=== PATIENT | female | born 1955 | race Caucasian/White ===

== ENCOUNTER 2022-03-20 15:21 | Inpatient (IN) ==
--- NOTE | 2022-03-20 15:48 | Emergency Department Note ---
Impression & Plan Hyponatremia, Acute UTI, H/O: CVA (cerebrovascular accident), Elevated troponin, Weakness ED Provider Note Provider: Villa Amaya MD DATE OF SERVICE: 03/20/2022 CHIEF COMPLAINT: Abnormal lab, chest pain yesterday, weakness, COVID HISTORY OF PRESENT ILLNESS: Patient is a 66-year-old female history of diabetes, atrial fibrillation on Eliquis, prior CVA with resultant right-sided hemiplegia presented today reporting she has had COVID for just over 10 days. From records it appears she did receive pack Slo-Bid. Is on Eliquis. States has been increasingly weak without appetite. Denies significant shortness of breath. Denies significant nausea or diarrhea. Denies abdominal pain. Reports yesterday for about an hour in the afternoon had a pressure across her chest like an elephant. Lasted maybe an hour. Evidently seen by medical staff there and had blood work this morning that was concerning for an elevated troponin and sent here for further care. Patient denies any pain overnight or today. Patient again endorses significant weakness. EMS reports the facility noted her to have some decreased blood pressure as well today. No falls reported. Patient denies change in her weakness on the right side that is stable from old stroke. Denies Toradol as prior heart attack. Primary care has been located at [facility]. Papers patient work also has diagnosis of peripheral autonomic dysfunction from prior stroke. REVIEW OF SYSTEMS: A total of 10 review of systems was obtained and negative except as stated above in the HPI. PAST MEDICAL HISTORY: As noted above MEDICATIONS: Reviewed medication list from the facility SOCIAL HISTORY: Now resides at nursing facility after her large stroke PHYSICAL EXAM: GENERAL: alert and oriented in no acute distress on stretcher Head: normocephalic and atraumatic EYES: No injection, discharge or icterus. NECK: Trachea midline. ENT: Mucous membranes pink and moist. LUNGS: Airway patent. No retractions. Breath sounds clear with good air entry bilaterally. HEART: Regular rate and rhythm. No chest wall tenderness ABDOMEN: Soft and non-tender, without guarding or rebound. SKIN: Acyanotic, warm, dry, without rashes EXTREMITIES: Without swelling, tenderness or deformity NEUROLOGICAL: Right-sided hemiplegia. Movement of the left foot and arm noted. No significant aphasia or dysarthria. Patient at times takes an extra moment or 2 to formulate words. She states this is her baseline. EK bpm sinus rhythm first-degree AV block. No PVC. No acute ST segment elevation with some baseline artifact. CONTINUOUS CARDIAC MONITORING: was ordered and showed a heart rate of 80s-90s bpm in sinus rhythm first-degree AV block Patient's laboratory studies and imaging reviewed. Differential includes Infection, dehydration, metabolic abnormality, hypo/hyperglycemia, electrolyte disturbance, anemia, hypoxia, cardiac sources, intracerebral event, toxicologic, neurologic, as well as other pathologies. IMPRESSION/MEDICAL DECISION MAKING: Report of chest pressure yesterday with elevated troponin on blood work earlier today. EKG without STEMI now not having active chest pain. He is COVID-positiv e. Anticoagulation Eliquis lowers my suspicion for PE/VTE. Denies significant chest or abdominal pain right now. No trauma reported. Reports stable unfortunately large neurological deficits from prior stroke. To me she denies significant cardiac history beyond A. fib. Blood pressure in the 90s to 100s fluctuating some. Better here with slight leukocytosis 11.6. Hemoglobin of 14.8 is normal. Troponin is elevated at 55. Negative COVID today but again recently positive. Blood pressure has been at times in the high 90s. Given a small fluid bolus. Unclear due to lack of other significant blood work if troponin elevation is chronic or not. No chest pain today but yesterday. Significantly weak. Discussed with her further monitoring here at the hospital. Hyponatremia of 128 is also noted today. No significant renal dysfunction. Urinalysis concerning for infection as well and given a dose of ceftriaxone. Blood cultures and urine cultures have been sent. Not clear that this is sepsis. Discussed with her given her elevated troponin with hyponatremia and evidence of UTI further care here at the hospital and hospitalist was contacted. DIAGNOSIS: Hyponatremia, elevated troponin, weakness, acute UTI DISPOSITION: Hospitalist will evaluate Patient was agreeable with this plan. Past Med/Surg History Social History Smoking Status: Never smoker Feels Safe at Home: Yes Allergies Allergies Allergy/AdvReac Type Severity Reaction Status Date / Time adhesive tape Allergy Unknown Unknown Verified 03/20/22 18:15 aspirin Allergy Unknown Unknown Verified 03/20/22 18:15 atorvastatin Allergy Unknown Unknown Verified 03/20/22 18:15 citalopram [From Celexa] Allergy Unknown Unknown Verified 03/20/22 18:15 Iodinated Contrast Media Allergy Unknown Unknown Verified 03/20/22 18:15 iodine Allergy Unknown Unknown Verified 03/20/22 18:15 latex Allergy Unknown Unknown Verified 03/20/22 18:15 sertraline [From Zoloft] Allergy Unknown Unknown Verified 03/20/22 18:15 Sulfa (Sulfonamide Allergy Unknown Unknown Verified 03/20/22 18:15 Antibiotics) ekg leads Allergy Unknown Unknown Uncoded 03/20/22 18:15 Home Meds Home Medications Medication Instructions Recorded Confirmed acetaminophen 325 mg tablet 650 mg PO Q6 PRN Pain 03/20/22 03/20/22 acetaminophen 325 mg tablet 650 mg PO Q6 PRN temp>101 03/20/22 03/20/22 apixaban 5 mg tablet (Eliquis) 5 mg PO BID 03/20/22 03/20/22 ascorbic acid (vitamin C) 500 mg 500 mg PO DAILY 03/20/22 03/20/22 tablet (Vitamin C) cholecalciferol (vitamin D3) 125 125 mcg PO DAILY 03/20/22 03/20/22 mcg (5,000 unit) tablet (Vitamin D3) cholecalciferol (vitamin D3) 25 25 mcg PO . DAILY (ON HOLD) 03/20/22 03/20/22 mcg (1,000 unit) tablet diltiazem HCl 180 mg 180 mg PO DAILY 03/20/22 03/20/22 capsule,extended release 24 hr duloxetine 60 mg capsule,delayed 60 mg PO DAILY 03/20/22 03/20/22 release furosemide 40 mg tablet 40 mg PO DAILY 03/20/22 03/20/22 gabapentin 100 mg capsule 200 mg PO DAILY 03/20/22 03/20/22 insulin glargine 100 unit/mL (3 40 unit subcut HS 03/20/22 03/20/22 mL) subcutaneous pen (Lantus Solostar U-100 Insulin) lisinopril 10 mg tablet 10 mg PO DAILY 03/20/22 03/20/22 metoprolol tartrate 25 mg tablet 25 mg PO . BID (ON HOLD) 03/20/22 03/20/22 polyethylene glycol 3350 17 17 g PO DAILY 03/20/22 03/20/22 gram/dose oral powder (Miralax) pravastatin 40 mg tablet 40 mg PO DAILY 03/20/22 03/20/22 sitagliptin phosphate 100 mg 100 mg PO DAILY 03/20/22 03/20/22 tablet (Januvia) sotalol 80 mg tablet 80 mg PO . BID( ON HOLD ) 03/20/22 03/20/22 trazodone 150 mg tablet 75 mg PO HS 03/20/22 03/20/22 zinc acetate 50 mg (zinc) capsule 50 mg PO DAILY 03/20/22 03/20/22 Results & Data (ED) Vital Signs Vital Signs - 24 hr 03/20/22 15:25 03/20/22 15:56 03/20/22 15:56 Temperature 37.0 C Temperature Source Oral Pulse Rate 90 Pulse Rate [Apical] 88 Pulse Rate from SpO2 Sensor Pulse Rhythm Regular Pulse Strength Normal Respiratory Rate 22 16 Respiratory Effort / Characteristics Non-Labored Respiratory Depth Normal Respiratory Pattern Regular Blood Pressure 110/77 Blood Pressure [Left Arm] 95/72 L Blood Pressure Mean 88 Blood Pressure Mean [Left Arm] 79 Blood Pressure Position Lying Pulse Oximetry 94 93 Oxygen Delivery Method Room Air Room Air Sepsis Recent Fever Within 48 Hours No Sepsis New/Unexplained Change in Mental Status N/A Sepsis Action Taken by Nursing No Action Required 03/20/22 15:56 03/20/22 17:02 03/20/22 15:31 Temperature Temperature Source Pulse Rate 87 82 Pulse Rate [Apical] 85 Pulse Rate from SpO2 Sensor 82 Pulse Rhythm Pulse Strength Respiratory Rate 16 18 19 Respiratory Effort / Characteristics Respiratory Depth Respiratory Pattern Blood Pressure Blood Pressure [Left Arm] 100/75 Blood Pressure Mean Blood Pressure Mean [Left Arm] 83 Blood Pressure Position Pulse Oximetry 94 91 94 Oxygen Delivery Method Sepsis Recent Fever Within 48 Hours Sepsis New/Unexplained Change in Mental Status Sepsis Action Taken by Nursing 03/20/22 15:36 03/20/22 15:36 03/20/22 15:40 Temperature Temperature Source Pulse Rate 84 90 Pulse Rate [Apical] Pulse Rate from SpO2 Sensor 87 88 Pulse Rhythm Pulse Strength Respiratory Rate 21 24 Respiratory Effort / Characteristics Respiratory Depth Respiratory Pattern Blood Pressure 94/68 L Blood Pressure [Left Arm] Blood Pressure Mean 76 Blood Pressure Mean [Left Arm] Blood Pressure Position Pulse Oximetry 94 94 Oxygen Delivery Method Sepsis Recent Fever Within 48 Hours Sepsis New/Unexplained Change in Mental Status Sepsis Action Taken by Nursing 03/20/22 15:40 03/20/22 15:45 03/20/22 15:45 Temperature Temperature Source Pulse Rate 88 Pulse Rate [Apical] Pulse Rate from SpO2 Sensor 88 Pulse Rhythm Pulse Strength Respiratory Rate 19 Respiratory Effort / Characteristics Respiratory Depth Respiratory Pattern Blood Pressure 89/62 L 107/68 Blood Pressure [Left Arm] Blood Pressure Mean 71 81 Blood Pressure Mean [Left Arm] Blood Pressure Position Pulse Oximetry 92 Oxygen Delivery Method Sepsis Recent Fever Within 48 Hours Sepsis New/Unexplained Change in Mental Status Sepsis Action Taken by Nursing 03/20/22 15:56 03/20/22 15:56 03/20/22 16:00 Temperature Temperature Source Pulse Rate 86 Pulse Rate [Apical] Pulse Rate from SpO2 Sensor 87 Pulse Rhythm Pulse Strength Respiratory Rate 21 Respiratory Effort / Characteristics Respiratory Depth Respiratory Pattern Blood Pressure 95/72 L 86/68 L Blood Pressure [Left Arm] Blood Pressure Mean 79 74 Blood Pressure Mean [Left Arm] Blood Pressure Position Pulse Oximetry 93 Oxygen Delivery Method Sepsis Recent Fever Within 48 Hours Sepsis New/Unexplained Change in Mental Status Sepsis Action Taken by Nursing 03/20/22 16:00 03/20/22 16:30 03/20/22 16:30 Temperature Temperature Source Pulse Rate 94 H 86 Pulse Rate [Apical] Pulse Rate from SpO2 Sensor 95 H 87 Pulse Rhythm Pulse Strength Respiratory Rate 15 25 H Respiratory Effort / Characteristics Respiratory Depth Respiratory Pattern Blood Pressure 109/70 Blood Pressure [Left Arm] Blood Pressure Mean 83 Blood Pressure Mean [Left Arm] Blood Pressure Position Pulse Oximetry 94 94 Oxygen Delivery Method Sepsis Recent Fever Within 48 Hours Sepsis New/Unexplained Change in Mental Status Sepsis Action Taken by Nursing 03/20/22 17:00 03/20/22 17:30 03/20/22 17:30 Temperature Temperature Source Pulse Rate 87 79 Pulse Rate [Apical] Pulse Rate from SpO2 Sensor 79 Pulse Rhythm Pulse Strength Respiratory Rate 18 17 Respiratory Effort / Characteristics Respiratory Depth Respiratory Pattern Blood Pressure 91/58 L Blood Pressure [Left Arm] Blood Pressure Mean 69 Blood Pressure Mean [Left Arm] Blood Pressure Position Pulse Oximetry 92 Oxygen Delivery Method Sepsis Recent Fever Within 48 Hours Sepsis New/Unexplained Change in Mental Status Sepsis Action Taken by Nursing Laboratory Data Result diagrams: 03/20/22 15:41 03/20/22 15:41 Lab Results 03/20/22 03/20/22 03/20/22 Range/Units 15:41 15:41 15:41 WBC 11.67 H (4.8-10.8) K/ul RBC 5.38 H (3.93-5.22) M/uL Hgb 14.8 (12.0-16.0) g/dl Hct 43.1 (34.1-44.9) % MCV 80.1 (80.0-100.0) fL MCH 27.5 (25.0-34.0) pg MCHC 34.3 (32.0-36.0) g/dL RDW Std Deviation 42.2 (36.4-46.3) fL RDW Coeff of Nelson 14.6 H (11.5-14.5) % Plt Count 411 H (130-400) K/uL MPV 10.7 (9.4-12.3) fL Immature Gran % (Auto) 0.6 % Neut % (Auto) 69.4 % Lymph % (Auto) 18.1 % [place] % (Auto) 10.9 % Eos % (Auto) 0.7 % Baso % (Auto) 0.3 % Neut # (Auto) 8.11 H (1.4-6.5) K/uL Lymph # (Auto) 2.11 (1.2-3.4) K/uL [place] # (Auto) 1.27 H (0.24-0.82) K/uL Eos # (Auto) 0.08 (0-0.50) K/uL Baso # (Auto) 0.03 (0-0.2) K/uL Immature Gran # (Auto) 0.07 H (0.00-0.02) K/uL PT 13.1 H (9.0-12.0) Seconds INR 1.2 H (0.9-1.1) APTT 33.7 H (21.0-31.0) Seconds PTT Ratio 1.2 Sodium 128 L (136-145) mmol/L Potassium 4.3 (3.5-5.1) mmol/L Chloride 93 L (98-107) mmol/L Carbon Dioxide 26 (21-32) mmol/L Anion Gap 9 (3-11) BUN 21 (6-23) mg/dl Creatinine 0.57 L (0.6-1.2) mg/dl Est Cr Clr Drug Dosing 96.4 ml/min Est GFR ( Amer) 110.4 ml/min Est GFR (Non-Af Amer) 95.3 ml/min BUN/Creatinine Ratio 36.8 H (10-20) Glucose 152 H (70-99(Fasting)) mg/dl Lactate (0.4-2.0) mmol/L Calcium 8.8 (8.5-10.1) mg/dl Total Bilirubin 0.9 (0.2-1.0) mg/dl AST 14 (13-39) U/L ALT 8 (7-52) U/L Alkaline Phosphatase 85 (34-104) U/L Troponin I High Sens 55.1 H* (0-14) pg/ml Total Protein 7.1 (6.0-8.3) gm/dl Albumin 3.1 L (3.4-5.0) gm/dl Globulin 4.0 (2.5-4.0) gm/dl Albumin/Globulin Ratio 0.8 L (0.9-2) Lipase 19 (11-82) U/L Procalcitonin (0-0.5) ng/ml Urine Color Urine Appearance (Clear) Urine pH (4.5-7.5) Ur Specific [place] (1.000-1.030) Urine Protein (Negative) Urine Glucose (UA) (Negative) Urine Ketones (Negative) Urine Blood (Negative) Urine Nitrite (Negative) Urine Bilirubin (Negative) Urine Urobilinogen (Negative) Ur Leukocyte Esterase (Negative) Urine WBC (Auto) (0-5) /hpf Urine RBC (Auto) (0-4) /hpf U Hyaline Cast (Auto) (0-5) /lpf U Epithel Cells (Auto) (0-5) /lpf Urine Bacteria (Auto) (Negative) Triple Phos Crystals (None Prsent) Urine Yeast 03/20/22 03/20/22 03/20/22 Range/Units 15:41 16:37 16:54 WBC (4.8-10.8) K/ul RBC (3.93-5.22) M/uL Hgb (12.0-16.0) g/dl Hct (34.1-44.9) % MCV (80.0-100.0) fL MCH (25.0-34.0) pg MCHC (32.0-36.0) g/dL RDW Std Deviation (36.4-46.3) fL RDW Coeff of Nelson (11.5-14.5) % Plt Count (130-400) K/uL MPV (9.4-12.3) fL Immature Gran % (Auto) % Neut % (Auto) % Lymph % (Auto) % [place] % (Auto) % Eos % (Auto) % Baso % (Auto) % Neut # (Auto) (1.4-6.5) K/uL Lymph # (Auto) (1.2-3.4) K/uL [place] # (Auto) (0.24-0.82) K/uL Eos # (Auto) (0-0.50) K/uL Baso # (Auto) (0-0.2) K/uL Immature Gran # (Auto) (0.00-0.02) K/uL PT (9.0-12.0) Seconds INR (0.9-1.1) APTT (21.0-31.0) Seconds PTT Ratio Sodium (136-145) mmol/L Potassium (3.5-5.1) mmol/L Chloride (98-107) mmol/L Carbon Dioxide (21-32) mmol/L Anion Gap (3-11) BUN (6-23) mg/dl Creatinine (0.6-1.2) mg/dl Est Cr Clr Drug Dosing ml/min Est GFR ( Amer) ml/min Est GFR (Non-Af Amer) ml/min BUN/Creatinine Ratio (10-20) Glucose (70-99(Fasting)) mg/dl Lactate 1.6 (0.4-2.0) mmol/L Calcium (8.5-10.1) mg/dl Total Bilirubin (0.2-1.0) mg/dl AST (13-39) U/L ALT (7-52) U/L Alkaline Phosphatase (34-104) U/L Troponin I High Sens (0-14) pg/ml Total Protein (6.0-8.3) gm/dl Albumin (3.4-5.0) gm/dl Globulin (2.5-4.0) gm/dl Albumin/Globulin Ratio (0.9-2) Lipase (11-82) U/L Procalcitonin 0.11 (0-0.5) ng/ml Urine Color [place] Urine Appearance Turbid A (Clear) Urine pH 8.0 H (4.5-7.5) Ur Specific [place] 1.017 (1.000-1.030) Urine Protein 3+ H (Negative) Urine Glucose (UA) Negative (Negative) Urine Ketones Negative (Negative) Urine Blood 3+ H (Negative) Urine Nitrite Negative (Negative) Urine Bilirubin Negative (Negative) Urine Urobilinogen Negative (Negative) Ur Leukocyte Esterase 3+ H (Negative) Urine WBC (Auto) >30 H (0-5) /hpf Urine RBC (Auto) 10-30 H (0-4) /hpf U Hyaline Cast (Auto) 0 (0-5) /lpf U Epithel Cells (Auto) >30 H (0-5) /lpf Urine Bacteria (Auto) 4+ H (Negative) Triple Phos Crystals Present A (None Prsent) Urine Yeast Not Reportable Administered Medications Apixaban (Apixaban 5 Mg Tablet) 5 mg PO BID [facility] Stop: 04/19/22 20:59 Last Admin: 03/20/22 21:26 Dose: 5 mg Documented By: JANNET Sodium Chloride (Nss 1000ml) 1,000 mls @ 80 mls/hr IV .[id number] [facility] Stop: 03/21/22 06:44 Last Admin: 03/20/22 19:45 Dose: 80 mls/hr Documented By: JANNET Insulin Glargine (Lantus Per Unit Charge) 30 units SQ [facility] Stop: 04/19/22 20:59 Last Admin: 03/20/22 21:27 Dose: 30 units Documented By: JANNET Co-signed By: RAJI Pravastatin Sodium (Pravastatin Sod 40 Mg Tab) 40 mg PO DAILY@1700 [facility] Stop: 04/19/22 18:09 Last Admin: 03/20/22 19:45 Dose: 40 mg Documented By: JANNET Trazodone HCl (Trazodone Hcl 50 Mg Tab) 75 mg PO HS [facility] Stop: 04/19/22 20:59 Last Admin: 03/20/22 21:26 Dose: 75 mg Documented By: JANNET Discontinued Medications Aspirin (Aspirin 81 Mg Ectab) 81 mg PO NOW STA Stop: 03/20/22 18:12 Last Admin: 03/20/22 19:42 Dose: Not Given Documented By: JANNET Sodium Chloride (Nss) 500 mls @ 999 mls/hr IV .Q31M ONE Stop: 03/20/22 17:05 Last Infusion: 03/20/22 18:21 Dose: 0 mls/hr Documented By: Admin: 03/20/22 17:02 Dose: 999 mls/hr Documented By: GALEN Ceftriaxone Sodium (Rocephin) 2,000 mg in 70 mls @ 140 mls/hr IV NOW STA Stop: 03/20/22 18:02 Last Infusion: 03/20/22 18:20 Dose: 0 mls/hr Documented By: Admin: 03/20/22 17:40 Dose: 140 mls/hr Documented By: GALEN Imaging Data Radiologist's Impression: Chest X-Ray 03/20/22 15:41 XR chest 1V portable HISTORY: Atypical Chest pain, nonspecific COMPARISON: None. FINDINGS: The lungs are clear. Cardiac silhouette is normal in size. No pleural effusions. No pneumothorax. Degenerative changes noted within the shoulders. IMPRESSION: No acute process. ACT 112: Negative or not required by law. Electronically signed by: Carlos Benoit M.D. 03/20/2022 4:15 PM Discharge Plan Visit Data Chief Complaint: Cardiac Assessment ED Provider: Villa Amaya Discharge Problem: Hyponatremia, Acute UTI, H/O: CVA (cerebrovascular accident), Elevated troponin, Weakness Patient Disposition: Being Evaluated by Hospitalist Discharge Instructions Interventions: ED Discharge Assessment Last Done: 03/20/22 20:05
[2022-03-20 15:59] LABS: Basophils # (auto) 0.03 K/uL (0-0.2); Basophils % (auto) 0.3 %; Eosinophils # (auto) 0.08 K/uL (0-0.50); Eosinophils % (auto) 0.7 %; Hematocrit (blood only) 43.1 % (34.1-44.9); Hemoglobin 14.8 g/dl (12.0-16.0); Immature Granulocytes # (auto) 0.07 K/uL (0.00-0.02); Immature Granulocytes % (auto) 0.6 %; Lymphocytes # (auto) 2.11 K/uL (1.2-3.4); Lymphocytes % (auto) 18.1 %; Mean Corpuscular Hemoglobin 27.5 pg (25.0-34.0); Mean Corpuscular Hgb Conc 34.3 g/dL (32.0-36.0); Mean Corpuscular Volume 80.1 fL (80.0-100.0); Mean Platelet Volume 10.7 fL (9.4-12.3); Monocytes # (auto) 1.27 K/uL (0.24-0.82); Monocytes % (auto) 10.9 %; Neutrophils # (auto) 8.11 K/uL (1.4-6.5); Neutrophils % (auto) 69.4 %; Platelet Count 411 K/uL (130-400); RDW Coefficient of Variation 14.6 % (11.5-14.5); RDW Standard Deviation 42.2 fL (36.4-46.3); Red Blood Count 5.38 M/uL (3.93-5.22); White Blood Count 11.67 K/ul (4.8-10.8)
[2022-03-20 16:11] LABS: INR 1.2 (0.9-1.1); Partial Thromboplastin Ratio 1.2; Partial Thromboplastin Time 33.7 Seconds (21.0-31.0); Prothrombin Time 13.1 Seconds (9.0-12.0)
--- NOTE | 2022-03-20 16:16 | XRay Report ---
XR chest 1V portable HISTORY: Atypical Chest pain, nonspecific COMPARISON: None. FINDINGS: The lungs are clear. Cardiac silhouette is normal in size. No pleural effusions. No pneumot horax. Degenerative changes noted within the shoulders. IMPRESSION: No acute process. ACT 112: Negative or not required by law. Electronically signed by: Carlos Benoit M.D. 03/20/2022 4:15 PM
[2022-03-20 16:35] LABS: Albumin Globulin Ratio 0.8 (0.9-2); Albumin Level 3.1 gm/dl (3.4-5.0); BUN Creatinine Ratio 36.8 (10-20); Bilirubin,Total 0.9 mg/dl (0.2-1.0); Calcium 8.8 mg/dl (8.5-10.1); Creatinine Clr Calc Pharmacy 96.4 ml/min; Est GFR (African American) 110.4 ml/min; Est GFR (Non-African American) 95.3 ml/min; Potassium 4.3 mmol/L (3.5-5.1); Total Protein 7.1 gm/dl (6.0-8.3); Troponin I High Sensitivity 55.1 pg/ml (0-14)
[2022-03-20] MEDS ORDERED: SODIUM CHLORIDE 0.9% 500 ML IV ONE (16:35)
[2022-03-20 17:27] LABS: Appearance Urine Turbid (Clear); Bacteria Urine Automated 4+ (Negative); Bilirubin Urine Negative (Negative); Blood Urine 3+ (Negative); Color Urine Orange; Epithelial Cell Urine Auto >30 /lpf (0-5); Glucose Urine UA Negative (Negative); Ketones Urine Negative (Negative); Leukocyte Esterase Urine 3+ (Negative); Nitrite Urine Negative (Negative); Specific Gravity Urine 1.017 (1.000-1.030); Urobilinogen Urine Negative (Negative); WBC Urine Automated >30 /hpf (0-5)
[2022-03-20 17:30] LABS: Protein Urine 3+ (Negative)
[2022-03-20] MEDS ORDERED: NITROGLYCERIN SL 0.4 MG/TAB TAB SL PRN (17:33)
[2022-03-20] MEDS ORDERED: cefTRIAXone SODIUM 2,000 MG/70 ML BAG IV STA (17:33)
[2022-03-20] MEDS ORDERED: POLYETHYLENE (MIRALAX) 17 GM PACK PO PRN (17:33)
[2022-03-20 17:43] LABS: Cast Urine Automated 0 /lpf (0-5)
[2022-03-20 17:44] LABS: Triple Phosphate Crystal Urine Present (None Prsent)
[2022-03-20] MEDS ORDERED: bisacodyL 5 MG TABEC PO PRN (18:04)
[2022-03-20] MEDS ORDERED: ASPIRIN 81 MG ECTAB PO STA (18:11)
[2022-03-20] MEDS ORDERED: DEXTROSE 50% 50 ML SYRINGE IV PRN (18:12)
[2022-03-20] MEDS ORDERED: CARBOHYDRATES FOR HYPOGLYCEMIA PO PRN (18:12)
[2022-03-20] MEDS ORDERED: PHARMACY GLYCEMIC MGMT CONSULT PRN (18:12)
[2022-03-20] MEDS ORDERED: GLUCOSE 40% GEL 15 GM TUBE PO PRN (18:12)
[2022-03-20] MEDS ORDERED: GLUCAGON FOR INJ 1 MG VIAL SQ PRN (18:12)
[2022-03-20] MEDS ORDERED: GLUCOSE 10 TAB/TUBE PO PRN (18:12)
[2022-03-20] MEDS ORDERED: SODIUM CHLORIDE 0.9% 500 ML IV SCH (18:15)
[2022-03-20] MEDS ORDERED: SODIUM CHLORIDE 0.9% 1000ML 1,000 ML IV SCH (18:15)
--- NOTE | 2022-03-20 18:18 | History & Physical Report ---
Date of Service March 20, 2022 Assessment & Plan (1) Acute UTI: Plan: - presenting with malaise, fatigue, decreased appetite - UA positive for infection - in the setting of chronic indwelling lovelace catheter and presenting symptoms with positive UA will treat for UTI - exhange lovelace - urine culture, blood cultures drawn - continue ceftriaxone - IVF for soft BP - will monitor for response (2) Elevated troponin: Plan: - patient had reports of chest pain 1 day [employer] - denies chest pain since isolated episode - given extensive CV disease and multiple CVA in the past will rule out ACS - initial trop 56-->55 - ECG without ischemic changes - will trend troponin overnight and repeat ECG - given no active chest pain and minimally elevated troponin with initial downtrend, no ECG changes will hold off consulting Cardiology for now - would likely benefit from Cardiology outpatient follow up - telemetry monitoring for now - given aspirin 81mg - continue Eliquis and statin (3) Hyponatremia: Plan: - likely in the setting of decreased po intake - given NS in ED - BP stable, respiratory status stable - will give 1L NS at 80cc/hr overnight - repeat BMP on morning labs (4) Paroxysmal atrial fibrillation: Plan: - in NSR on admission ECG - rate controlled on ?diltiazem, sotalol, metoprolol? on med list from [place] - will continue diltiazem for now as sotalol and metoprolol on hold at [place] - monitor on telemetry - continue eliquis (5) DM2 (diabetes mellitus, type 2): Plan: - no hbA1c on record - ordered - on lantus 40units qhs at [place] - start on 30 units qhs for now given decreased PO intake - SSI for now - FSG AC+HS - diabetic diet (6) H/O: CVA (cerebrovascular accident): Plan: - right sided hemiplegia with very minimal functioning on right - appears to be at baseline - continue statin and Eliquis - given aspirin given report of chest pain in setting of CV disease (7) HTN (hypertension): Plan: - patient BP a little low on presentation possibly in the setting of hypovolemia from decrease po - IVF as above - holding BP meds for now - restart as tolerated (8) HLD (hyperlipidemia): Plan: - continue statin (9) Depression with anxiety: Plan: - continue home meds (10) Neurogenic bladder: Plan: - change lovelace on admission - continue for now - abx as above Plan DVT ppx: Eliquis Code Status: Full Code Dispo: telemetry Chris Montgomery MD Hospital Medicine History of Present Illness Chief Complaint: weakness, hyponatremia Primary Care Provider: [facility] The patient is a 66 year old woman with pmh h/o CVA with right hemiplegia, DM2, HTN, MDD/anxiety, afib on eliquis, HLD, neurogenic bladder with chronic indwelling lovelace catheter presented from [facility] with report of chest pain 1 day prior to admission and generalized fatigue. Patient reports generalized weakness and malaise for the past 3 days mostly but has not felt well since COVID19 diagnosis several weeks ago. She denies any chest pain at this time. Reported pressure like chest pain for about 1 hour the day prior to admission but has resolved and not recurred since then. Denied shortness of breath, n/v/d, abdominal pain, LOC, change in cough, fever or chills. Reports right sided weakness is unchanged from baseline. She reports a decreased appetite for the past 3 days as well. Feels like she has had a UTI but "no one did anything about it." She denies any other complaints. In the ED, vitals were significant for BP 90-100s/70s, HR 80s, afebrile, SpO2 91-94% on RA. Labs were significant for WBC 11.7, PLT 411, Na 128, trop 56-->55, UA with >30 WBC, 3+ LE, bacteria. CXR was unremarkable, ECG without ischemic changes, NSR. She was given IVF with NS and ceftriaxone and admitted to medicine. Allergies Allergy/AdvReac Type Severity Reaction Status Date / Time adhesive tape Allergy Unknown Unknown Verified 03/20/22 18:15 aspirin Allergy Unknown Unknown Verified 03/20/22 18:15 atorvastatin Allergy Unknown Unknown Verified 03/20/22 18:15 citalopram [From Celexa] Allergy Unknown Unknown Verified 03/20/22 18:15 Iodinated Contrast Media Allergy Unknown Unknown Verified 03/20/22 18:15 iodine Allergy Unknown Unknown Verified 03/20/22 18:15 latex Allergy Unknown Unknown Verified 03/20/22 18:15 sertraline [From Zoloft] Allergy Unknown Unknown Verified 03/20/22 18:15 Sulfa (Sulfonamide Allergy Unknown Unknown Verified 03/20/22 18:15 Antibiotics) ekg leads Allergy Unknown Unknown Uncoded 03/20/22 18:15 Home Medications Medication Instructions Recorded Confirmed Type acetaminophen 325 mg tablet 650 mg PO Q6 PRN Pain 03/20/22 03/20/22 History acetaminophen 325 mg tablet 650 mg PO Q6 PRN temp>101 03/20/22 03/20/22 History apixaban 5 mg tablet (Eliquis) 5 mg PO BID 03/20/22 03/20/22 History ascorbic acid (vitamin C) 500 mg 500 mg PO DAILY 03/20/22 03/20/22 History tablet (Vitamin C) cholecalciferol (vitamin D3) 125 125 mcg PO DAILY 03/20/22 03/20/22 History mcg (5,000 unit) tablet (Vitamin D3) cholecalciferol (vitamin D3) 25 25 mcg PO .ON HOLD 03/20/22 03/20/22 History mcg (1,000 unit) tablet diltiazem HCl 180 mg 180 mg PO DAILY 03/20/22 03/20/22 History capsule,extended release 24 hr duloxetine 60 mg capsule,delayed 60 mg PO DAILY 03/20/22 03/20/22 History release furosemide 40 mg tablet 40 mg PO DAILY 03/20/22 03/20/22 History gabapentin 100 mg capsule 200 mg PO DAILY 03/20/22 03/20/22 History insulin glargine 100 unit/mL (3 40 unit subcut HS 03/20/22 03/20/22 History mL) subcutaneous pen (Lantus Solostar U-100 Insulin) lisinopril 10 mg tablet 10 mg PO DAILY 03/20/22 03/20/22 History metoprolol tartrate 25 mg tablet 25 mg PO BID 03/20/22 03/20/22 History polyethylene glycol 3350 17 17 g PO DAILY 03/20/22 03/20/22 History gram/dose oral powder (Miralax) pravastatin 40 mg tablet 40 mg PO DAILY 03/20/22 03/20/22 History sitagliptin phosphate 100 mg 100 mg PO DAILY 03/20/22 03/20/22 History tablet (Januvia) sotalol 80 mg tablet 80 mg PO BID 03/20/22 03/20/22 History trazodone 150 mg tablet 75 mg PO HS 03/20/22 03/20/22 History zinc acetate 50 mg (zinc) capsule 50 mg PO DAILY 03/20/22 03/20/22 History Past Med/Surg History Social History Smoking Status: Never smoker Feels Safe at Home: Yes Review of Systems Review of Systems: All systems reviewed & are unremarkable except as noted in Subjective Physical Exam Physical Exam: GENERAL: alert and oriented in no acute distress on stretcher Head: normocephalic and atraumatic EYES: No injection, discharge or icterus. NECK: Trachea midline. ENT: Mucous membranes pink and moist. LUNGS: Airway patent. No retractions. Breath sounds clear with good air entry bilaterally. HEART: Regular rate and rhythm. No chest wall tenderness ABDOMEN: Soft and mildly tender throughout, without guarding or rebound. SKIN: Acyanotic, warm, dry, without rashes EXTREMITIES: Without swelling, tenderness or deformity NEUROLOGICAL: Right-sided hemiplegia. Movement of the left foot and arm noted Arm>leg/foot on left. No significant aphasia or dysarthria. Patient at times takes an extra moment or 2 to formulate words. She states this is her baseline. has light squeez on right hand 1/5 Results & Data Results & Data ([facility]) Vital Signs (Past 12 Hours) Vital Signs Temp Pulse Pulse Resp BP BP Pulse Ox 03/20/22 17:02 85 18 100/75 91 03/20/22 15:56 87 16 94 03/20/22 15:56 88 16 95/72 L 93 03/20/22 15:56 03/20/22 15:25 37.0 C 90 22 110/77 94 O2 Del Method 03/20/22 17:02 03/20/22 15:56 03/20/22 15:56 03/20/22 15:56 Room Air 03/20/22 15:25 Room Air Diagnostic Findings Laboratory Results WBC 11.67 K/ul (4.8-10.8) H 03/20/22 15:41 RBC 5.38 M/uL (3.93-5.22) H 03/20/22 15:41 Hgb 14.8 g/dl (12.0-16.0) 03/20/22 15:41 Hct 43.1 % (34.1-44.9) 03/20/22 15:41 MCV 80.1 fL (80.0-100.0) 03/20/22 15:41 MCH 27.5 pg (25.0-34.0) 03/20/22 15:41 MCHC 34.3 g/dL (32.0-36.0) 03/20/22 15:41 RDW Std Deviation 42.2 fL (36.4-46.3) 03/20/22 15:41 RDW Coeff of [place] 14.6 % (11.5-14.5) H 03/20/22 15:41 Plt Count 411 K/uL (130-400) H 03/20/22 15:41 MPV 10.7 fL (9.4-12.3) 03/20/22 15:41 Immature Gran % (Auto) 0.6 % 03/20/22 15:41 Neut % (Auto) 69.4 % 03/20/22 15:41 Lymph % (Auto) 18.1 % 03/20/22 15:41 [place] % (Auto) 10.9 % 03/20/22 15:41 Eos % (Auto) 0.7 % 03/20/22 15:41 Baso % (Auto) 0.3 % 03/20/22 15:41 Neut # (Auto) 8.11 K/uL (1.4-6.5) H 03/20/22 15:41 Lymph # (Auto) 2.11 K/uL (1.2-3.4) 03/20/22 15:41 [place] # (Auto) 1.27 K/uL (0.24-0.82) H 03/20/22 15:41 Eos # (Auto) 0.08 K/uL (0-0.50) 03/20/22 15:41 Baso # (Auto) 0.03 K/uL (0-0.2) 03/20/22 15:41 Immature Gran # (Auto) 0.07 K/uL (0.00-0.02) H 03/20/22 15:41 PT 13.1 Seconds (9.0-12.0) H 03/20/22 15:41 INR 1.2 (0.9-1.1) H 03/20/22 15:41 APTT 33.7 Seconds (21.0-31.0) H 03/20/22 15:41 PTT Ratio 1.2 03/20/22 15:41 Sodium 128 mmol/L (136-145) L 03/20/22 15:41 Potassium 4.3 mmol/L (3.5-5.1) 03/20/22 15:41 Chloride 93 mmol/L (98-107) L 03/20/22 15:41 Carbon Dioxide 26 mmol/L (21-32) 03/20/22 15:41 Anion Gap 9 (3-11) 03/20/22 15:41 BUN 21 mg/dl (6-23) 03/20/22 15:41 Creatinine 0.57 mg/dl (0.6-1.2) L 03/20/22 15:41 Est Cr Clr Drug Dosing 96.4 ml/min 03/20/22 15:41 Est GFR ( Amer) 110.4 ml/min 03/20/22 15:41 Est GFR (Non-Af Amer) 95.3 ml/min 03/20/22 15:41 BUN/Creatinine Ratio 36.8 (10-20) H 03/20/22 15:41 Glucose 152 mg/dl (70-99(Fasting)) H 03/20/22 15:41 Calcium 8.8 mg/dl (8.5-10.1) 03/20/22 15:41 Total Bilirubin 0.9 mg/dl (0.2-1.0) 03/20/22 15:41 AST 14 U/L (13-39) 03/20/22 15:41 ALT 8 U/L (7-52) 03/20/22 15:41 Alkaline Phosphatase 85 U/L (34-104) 03/20/22 15:41 Troponin I High Sens 55.1 pg/ml (0-14) H* 03/20/22 15:41 Total Protein 7.1 gm/dl (6.0-8.3) 03/20/22 15:41 Albumin 3.1 gm/dl (3.4-5.0) L 03/20/22 15:41 Globulin 4.0 gm/dl (2.5-4.0) 03/20/22 15:41 Albumin/Globulin Ratio 0.8 (0.9-2) L 03/20/22 15:41 Lipase 19 U/L (11-82) 03/20/22 15:41 Procalcitonin 0.11 ng/ml (0-0.5) 03/20/22 15:41 Urine Color [place] 03/20/22 16:54 Urine Appearance Turbid (Clear) A 03/20/22 16:54 Urine pH 8.0 (4.5-7.5) H 03/20/22 16:54 Ur Specific [place] 1.017 (1.000-1.030) 03/20/22 16:54 Urine Protein 3+ (Negative) H 03/20/22 16:54 Urine Glucose (UA) Negative (Negative) 03/20/22 16:54 Urine Ketones Negative (Negative) 03/20/22 16:54 Urine Blood 3+ (Negative) H 03/20/22 16:54 Urine Nitrite Negative (Negative) 03/20/22 16:54 Urine Bilirubin Negative (Negative) 03/20/22 16:54 Urine Urobilinogen Negative (Negative) 03/20/22 16:54 Ur Leukocyte Esterase 3+ (Negative) H 03/20/22 16:54 Urine WBC (Auto) >30 /hpf (0-5) H 03/20/22 16:54 Urine RBC (Auto) 10-30 /hpf (0-4) H 03/20/22 16:54 U Hyaline Cast (Auto) 0 /lpf (0-5) 03/20/22 16:54 U Epithel Cells (Auto) >30 /lpf (0-5) H 03/20/22 16:54 Urine Bacteria (Auto) 4+ (Negative) H 03/20/22 16:54 Triple Phos Crystals Present (None Prsent) A 03/20/22 16:54 Urine Yeast Not Reportable 03/20/22 16:54 SARS-CoV-2, RNA, NAAT NEGATIVE (NEGATIVE) 03/20/22 Unknown Impressions Chest X-Ray 03/20/22 15:41 XR chest 1V portable HISTORY: Atypical Chest pain, nonspecific COMPARISON: None. FINDINGS: The lungs are clear. Cardiac silhouette is normal in size. No pleural effusions. No pneumothorax. Degenerative changes noted within the shoulders. IMPRESSION: No acute process. ACT 112: Negative or not required by law. Electronically signed by: Carlos Benoit M.D. 03/20/2022 4:15 PM Medications Administered Current Inpatient Medications Acetaminophen (Acetaminophen 325 Mg Tab) 650 mg PO Q4H PRN PRN Reason: Pain or Fever Stop: 04/19/22 17:32 Apixaban (Apixaban 5 Mg Tablet) 5 mg PO BID [facility] Stop: 04/19/22 20:59 Ascorbic Acid (Ascorbic Acid 500 Mg Tab) 500 mg PO QAM [facility] Stop: 04/20/22 08:59 Aspirin (Aspirin 81 Mg Ectab) 81 mg PO NOW STA Stop: 03/20/22 18:12 Bisacodyl (Bisacodyl 5 Mg Tabec) 5 mg PO BID PRN PRN Reason: Constipation Stop: 04/19/22 18:03 Cyanocobalamin (Cyanocobalamin (B-12) 500 Mcg Tablet) 500 mcg PO [facility] Stop: 04/20/22 08:59 Dextrose (Dextrose 50% 50 Ml Syringe) 25 - 50 ml IV UD PRN; Protocol PRN Reason: Hypoglycemia Protocol Stop: 04/19/22 18:11 Diltiazem HCl (Diltiazem Hcl 180 Mg Capcr) 180 mg PO [facility] Stop: 04/20/22 08:59 Duloxetine HCl (Duloxetine Hcl 60 Mg Cap) 60 mg PO [facility] Stop: 04/20/22 08:59 Gabapentin (Gabapentin 100 Mg Cap) 200 mg PO [facility] Stop: 04/20/22 08:59 Glucagon (Glucagon For Inj 1 Mg Vial) 1 mg SQ UD PRN; Protocol PRN Reason: Hypoglycemia Protocol Stop: 04/19/22 18:11 Glucose (Glucose 40% Gel 15 Gm Tube) 15 - 30 gm PO UD PRN; Protocol PRN Reason: Hypoglycemia Protocol Stop: 04/19/22 18:11 Glucose (Glucose 10 Tab/Tube) 4 - 8 tab PO UD PRN; Protocol PRN Reason: Hypoglycemia Treatment Stop: 04/19/22 18:11 Ceftriaxone Sodium 2,000 mg/ (Dextrose) 70 mls @ 100 mls/hr IV Q24H [facility]; Protocol Stop: 03/31/22 08:59 Sodium Chloride (Nss 1000ml) 1,000 mls @ 80 mls/hr IV .[id number] [facility] Stop: 03/21/22 06:44 Insulin Aspart (Insulin Aspart Per Unit) 0 units SC ACHS [facility] Stop: 04/19/22 20:59 Insulin Glargine (Lantus Per Unit Charge) 30 units SQ HS [facility] Stop: 04/19/22 20:59 Miscellaneous (Carbohydrates For Hypoglycemia ) 15 - 30 gm PO UD PRN PRN Reason: Hypoglycemia Protocol Stop: 04/19/22 18:11 Miscellaneous Information (Pharmacy Glycemic Mgmt Consult) 1 each N/A UD PRN PRN Reason: Consult Stop: 04/19/22 18:11 Nitroglycerin (Nitroglycerin Sl 0.4 Mg/Tab Tab) 0.4 mg SL UD PRN PRN Reason: Chest Pain Stop: 04/19/22 17:32 Polyethylene Glycol (Polyethylene (Miralax) 17 Gm Pack) 17 gm PO DAILY PRN PRN Reason: Constipation Stop: 04/19/22 17:32 Pravastatin Sodium (Pravastatin Sod 40 Mg Tab) 40 mg PO DAILY@1700 [facility] Stop: 04/19/22 18:09 Trazodone HCl (Trazodone Hcl 50 Mg Tab) 75 mg PO HS [facility] Stop: 04/19/22 20:59 Vitamin D (Cholecalciferol 1,000 Units 25 Mcg Tab) 1,000 units PO QAM [facility] Stop: 04/20/22 08:59 Code Status & VTE Plan Code Status Full code VTE Prophylaxis Plan VTE Prophylaxis will be ordered: No
[2022-03-20 19:08] LABS: Estimated Average Glucose 114 mg/dl; Hemoglobin A1C 5.6 % (4.5-5.6)
[2022-03-20 19:30] LABS: Chol HDL Ratio 3.6 (0-5)
[2022-03-20] MEDS: PRAVASTATIN SOD 40 MG TAB PO SCH (19:45)
[2022-03-20] MEDS ORDERED: LANTUS PER UNIT CHARGE SQ SCH (21:00)
[2022-03-20] MEDS: traZODone HCL 50 MG TAB PO SCH (21:26)
[2022-03-20] MEDS: APIXABAN 5 MG TABLET PO SCH (21:26)
[2022-03-20] MEDS: INSULIN ASPART PER UNIT SC SCH (22:55)
[2022-03-21] MEDS ORDERED: SODIUM CHLORIDE 0.9% 1000ML 1,000 ML IV SCH (08:15)
[2022-03-21 08:16] LABS: Basophils # (auto) 0.04 K/uL (0-0.2); Basophils % (auto) 0.4 %; Eosinophils # (auto) 0.08 K/uL (0-0.50); Eosinophils % (auto) 0.8 %; Hematocrit (blood only) 41.4 % (34.1-44.9); Hemoglobin 13.8 g/dl (12.0-16.0); Immature Granulocytes # (auto) 0.04 K/uL (0.00-0.02); Immature Granulocytes % (auto) 0.4 %; Mean Corpuscular Hemoglobin 26.8 pg (25.0-34.0); Mean Corpuscular Hgb Conc 33.3 g/dL (32.0-36.0); Mean Corpuscular Volume 80.5 fL (80.0-100.0); Mean Platelet Volume 10.9 fL (9.4-12.3); Monocytes # (auto) 1.12 K/uL (0.24-0.82); Monocytes % (auto) 10.7 %; Neutrophils # (auto) 7.23 K/uL (1.4-6.5); Neutrophils % (auto) 68.7 %; Platelet Count 360 K/uL (130-400); RDW Coefficient of Variation 14.5 % (11.5-14.5); RDW Standard Deviation 42.4 fL (36.4-46.3); Red Blood Count 5.14 M/uL (3.93-5.22); White Blood Count 10.51 K/ul (4.8-10.8)
[2022-03-21 08:26] LABS: INR 1.2 (0.9-1.1); Prothrombin Time 13.1 Seconds (9.0-12.0)
[2022-03-21 08:55] LABS: Albumin Globulin Ratio 0.8 (0.9-2); BUN Creatinine Ratio 37.8 (10-20); Bilirubin,Total 0.8 mg/dl (0.2-1.0); C Reactive Protein 5.22 mg/dl (0-0.5); Calcium 8.6 mg/dl (8.5-10.1); Creatinine Clr Calc Pharmacy 121.5 ml/min; Est GFR (African American) 119.3 ml/min; Globulin 3.7 gm/dl (2.5-4.0); Magnesium 1.7 mg/dl (1.7-2.4); Phosphorus 3.1 mg/dl (2.5-4.9); Potassium 3.8 mmol/L (3.5-5.1); Total Protein 6.7 gm/dl (6.0-8.3)
[2022-03-21] MEDS: INSULIN ASPART PER UNIT SC SCH ×4 (09:04→20:48)
[2022-03-21] MEDS: DULoxetine HCL 60 MG CAP PO SCH (09:06)
[2022-03-21] MEDS: APIXABAN 5 MG TABLET PO SCH ×2 (09:07→21:20)
[2022-03-21] MEDS: GABAPENTIN 100 MG CAP PO SCH (09:07)
[2022-03-21] MEDS: ASCORBIC ACID 500 MG TAB PO SCH (09:07)
[2022-03-21] MEDS: CYANOCOBALAMIN (B-12) 500 MCG TABLET PO SCH (09:07)
[2022-03-21] MEDS: dilTIAZem HCL 180 MG CAPCR PO SCH (09:08)
[2022-03-21] MEDS: cefTRIAXone SODIUM 2,000 MG in DEXTROSE 5% 50 ML IV SCH (09:14)
[2022-03-21] MEDS ORDERED: MICONAZOLE NITRATE POWDER 85 GM EXT PRN (10:17)
--- NOTE | 2022-03-21 12:04 | Hospitalist Progress Note ---
Date of Service March 21, 2022 Assessment & Plan (1) Acute UTI: Plan: - presenting with malaise, fatigue, decreased appetite - UA positive for infection - in the setting of chronic indwelling lovelace catheter and presenting symptoms with positive UA will treat for UTI - exhange lovelace - urine culture, blood cultures pending - continue ceftriaxone - IVF for soft BP - will monitor for response (2) Hyponatremia: Plan: - likely in the setting of decreased po intake - given NS in ED - BP stable, respiratory status stable - continue gentle IVF - monitor Na on BMP daily (3) Paroxysmal atrial fibrillation: Plan: - in NSR on admission ECG - rate controlled on ?diltiazem, sotalol, metoprolol? on med list from [place] - will continue diltiazem for now as sotalol and metoprolol on hold at [place] - monitor on telemetry - continue eliquis (4) Elevated troponin: Plan: - patient had reports of chest pain 1 day [facility] - denies chest pain since isolated episode - extensive CV disease and multiple CVA in the past - ECG without ischemic changes - trop continued down trend, no ECG changes - no chest pain - would likely benefit from Cardiology outpatient follow up - telemetry monitoring for now - given aspirin 81mg - continue Eliquis and statin (5) DM2 (diabetes mellitus, type 2): Plan: - A1c 5.6% 02/2022 - on lantus 40units qhs at [place] - start on 30 units qhs for now given decreased PO intake - SSI for now - FSG AC+HS - diabetic diet (6) H/O: CVA (cerebrovascular accident): Plan: - right sided hemiplegia with very minimal functioning on right - appears to be at baseline - continue statin and Eliquis (7) HTN (hypertension): Plan: - patient BP a little low on presentation possibly in the setting of hypovolemia from decrease po - IVF as above - home meds from [place] are lisinopril 10mg daily, diltiazem 180mg daily, [id number] BID, Lopressor 25mg BID - continue diltiazem for now, hold others - restart as tolerated (8) HLD (hyperlipidemia): Plan: - continue statin (9) Depression with anxiety: Plan: - continue home meds (10) Neurogenic bladder: Plan: - change lovelace on admission - continue for now - abx as above Plan DVT ppx: Eliquis Code Status: Full Code Dispo: telemetry Chris Montgomery MD [facility] Medicine Admission and Anticipated Discharge Date Admission Date: March 20, 2022 Subjective Patient with h/o CVA with right hemiplegia, DM2, HTN, MDD/anxiety, afib on eliquis, HLD, neurogenic bladder with chronic indwelling lovelace catheter presented from [facility] with report of chest pain 1 day prior to admission and generalized fatigue. Found to have UTI, lovelace exchanged, culture sent, ceftriaxone started, IVF. troponin trended down, ECG without ischemic changes, no more chest pain. Patient feels somewhat better today. Still feeling fatigued. Reports appetite is somewhat improved this morning. Denies chest pain, shortness of breath, n/v/d, abdominal pain. Review of Systems Review of Systems: All systems reviewed & are unremarkable except as noted in Subjective Physical Exam Physical Exam: GENERAL: alert and oriented in no acute distress on stretcher Head: normocephalic and atraumatic EYES: No injection, discharge or icterus. NECK: Trachea midline. ENT: Mucous membranes pink and moist. LUNGS: Airway patent. No retractions. Breath sounds clear with good air entry bilaterally. HEART: Regular rate and rhythm. No chest wall tenderness ABDOMEN: Soft and mildly tender throughout, without guarding or rebound. SKIN: Acyanotic, warm, dry, without rashes EXTREMITIES: Without swelling, tenderness or deformity NEUROLOGICAL: Right-sided hemiplegia. Movement of the left foot and arm noted Arm>leg/foot on left. No significant aphasia or dysarthria. Patient at times takes an extra moment or 2 to formulate words. She states this is her baseline. has light squeez on right hand 1/5 Results & Data Results & Data ([facility]) Vital Signs (Past 12 Hours) Vital Signs Temp Pulse Pulse Resp BP Pulse Ox O2 Del Method 03/21/22 11:49 37.0 C 103 H 16 92/63 L 94 Room Air 03/21/22 08:13 36.7 C 88 16 99/61 L 94 Room Air 03/21/22 05:11 36.5 C 92 H 14 104/68 92 Room Air 03/21/22 00:25 96 H Diagnostic Findings Laboratory Results WBC 10.51 K/ul (4.8-10.8) 03/21/22 07:25 RBC 5.14 M/uL (3.93-5.22) 03/21/22 07:25 Hgb 13.8 g/dl (12.0-16.0) 03/21/22 07:25 Hct 41.4 % (34.1-44.9) 03/21/22 07:25 MCV 80.5 fL (80.0-100.0) 03/21/22 07:25 MCH 26.8 pg (25.0-34.0) 03/21/22 07:25 MCHC 33.3 g/dL (32.0-36.0) 03/21/22 07:25 RDW Std Deviation 42.4 fL (36.4-46.3) 03/21/22 07:25 RDW Coeff of Nelson 14.5 % (11.5-14.5) 03/21/22 07:25 Plt Count 360 K/uL (130-400) 03/21/22 07:25 MPV 10.9 fL (9.4-12.3) 03/21/22 07:25 Immature Gran % (Auto) 0.4 % 03/21/22 07:25 Neut % (Auto) 68.7 % 03/21/22 07:25 Lymph % (Auto) 19.0 % 03/21/22 07:25 [place] % (Auto) 10.7 % 03/21/22 07:25 Eos % (Auto) 0.8 % 03/21/22 07:25 Baso % (Auto) 0.4 % 03/21/22 07:25 Neut # (Auto) 7.23 K/uL (1.4-6.5) H 03/21/22 07:25 Lymph # (Auto) 2.00 K/uL (1.2-3.4) 03/21/22 07:25 [place] # (Auto) 1.12 K/uL (0.24-0.82) H 03/21/22 07:25 Eos # (Auto) 0.08 K/uL (0-0.50) 03/21/22 07:25 Baso # (Auto) 0.04 K/uL (0-0.2) 03/21/22 07:25 Immature Gran # (Auto) 0.04 K/uL (0.00-0.02) H 03/21/22 07:25 PT 13.1 Seconds (9.0-12.0) H 03/21/22 07:25 INR 1.2 (0.9-1.1) H 03/21/22 07:25 APTT 33.7 Seconds (21.0-31.0) H 03/20/22 15:41 PTT Ratio 1.2 03/20/22 15:41 Sodium 128 mmol/L (136-145) L 03/21/22 07:25 Potassium 3.8 mmol/L (3.5-5.1) 03/21/22 07:25 Chloride 94 mmol/L (98-107) L 03/21/22 07:25 Carbon Dioxide 25 mmol/L (21-32) 03/21/22 07:25 Anion Gap 9 (3-11) 03/21/22 07:25 BUN 17 mg/dl (6-23) 03/21/22 07:25 Creatinine 0.45 mg/dl (0.6-1.2) L 03/21/22 07:25 Est Cr Clr Drug Dosing 121.5 ml/min 03/21/22 07:25 Est GFR ( Amer) 119.3 ml/min 03/21/22 07:25 Est GFR (Non-Af Amer) 103.0 ml/min 03/21/22 07:25 BUN/Creatinine Ratio 37.8 (10-20) H 03/21/22 07:25 Glucose 103 mg/dl (70-99(Fasting)) H 03/21/22 07:25 POC Glucose 145 mg/dl (70-99) H 03/21/22 11:39 Estimat Average Glucose 114 mg/dl 03/20/22 18:44 Hemoglobin A1c 5.6 % (4.5-5.6) 03/20/22 18:44 Lactate 1.6 mmol/L (0.4-2.0) 03/20/22 16:37 Calcium 8.6 mg/dl (8.5-10.1) 03/21/22 07:25 Phosphorus 3.1 mg/dl (2.5-4.9) 03/21/22 07:25 Magnesium 1.7 mg/dl (1.7-2.4) 03/21/22 07:25 Total Bilirubin 0.8 mg/dl (0.2-1.0) 03/21/22 07:25 AST 15 U/L (13-39) 03/21/22 07:25 ALT 7 U/L (7-52) 03/21/22 07:25 Alkaline Phosphatase 79 U/L (34-104) 03/21/22 07:25 Troponin I High Sens 38.4 pg/ml (0-14) H 03/21/22 00:51 C-Reactive Protein 5.22 mg/dl (0-0.5) H 03/21/22 07:25 Total Protein 6.7 gm/dl (6.0-8.3) 03/21/22 07:25 Albumin 3.0 gm/dl (3.4-5.0) L 03/21/22 07:25 Globulin 3.7 gm/dl (2.5-4.0) 03/21/22 07:25 Albumin/Globulin Ratio 0.8 (0.9-2) L 03/21/22 07:25 Triglycerides 91 mg/dl (0-150) 03/20/22 18:44 Cholesterol 97 mg/dl (0-200) 03/20/22 18:44 LDL Cholesterol, Calc 52 mg/dl 03/20/22 18:44 VLDL Cholesterol, Calc 18 mg/dl (0-30) 03/20/22 18:44 HDL Cholesterol 27 mg/dl 03/20/22 18:44 Cholesterol/HDL Ratio 3.6 (0-5) 03/20/22 18:44 Lipase 19 U/L (11-82) 03/20/22 15:41 Procalcitonin 0.11 ng/ml (0-0.5) 03/20/22 15:41 Urine Color Dolores 03/20/22 16:54 Urine Appearance Turbid (Clear) A 03/20/22 16:54 Urine pH 8.0 (4.5-7.5) H 03/20/22 16:54 Ur Specific Morrison 1.017 (1.000-1.030) 03/20/22 16:54 Urine Protein 3+ (Negative) H 03/20/22 16:54 Urine Glucose (UA) Negative (Negative) 03/20/22 16:54 Urine Ketones Negative (Negative) 03/20/22 16:54 Urine Blood 3+ (Negative) H 03/20/22 16:54 Urine Nitrite Negative (Negative) 03/20/22 16:54 Urine Bilirubin Negative (Negative) 03/20/22 16:54 Urine Urobilinogen Negative (Negative) 03/20/22 16:54 Ur Leukocyte Esterase 3+ (Negative) H 03/20/22 16:54 Urine WBC (Auto) >30 /hpf (0-5) H 03/20/22 16:54 Urine RBC (Auto) 10-30 /hpf (0-4) H 03/20/22 16:54 U Hyaline Cast (Auto) 0 /lpf (0-5) 03/20/22 16:54 U Epithel Cells (Auto) >30 /lpf (0-5) H 03/20/22 16:54 Urine Bacteria (Auto) 4+ (Negative) H 03/20/22 16:54 Triple Phos Crystals Present (None Prsent) A 03/20/22 16:54 Urine Yeast Not Reportable 03/20/22 16:54 SARS-CoV-2, RNA, NAAT NEGATIVE (NEGATIVE) 03/20/22 Unknown Impressions Chest X-Ray 03/20/22 15:41 XR chest 1V portable HISTORY: Atypical Chest pain, nonspecific COMPARISON: None. FINDINGS: The lungs are clear. Cardiac silhouette is normal in size. No pleural effusions. No pneumothorax. Degenerative changes noted within the shoulders. IMPRESSION: No acute process. ACT 112: Negative or not required by law. Electronically signed by: Carlos Benoit M.D. 03/20/2022 4:15 PM Medications Administered Current Inpatient Medications Acetaminophen (Acetaminophen 325 Mg Tab) 650 mg PO Q4H PRN PRN Reason: Pain or Fever Stop: 04/19/22 17:32 Apixaban (Apixaban 5 Mg Tablet) 5 mg PO BID [facility] Stop: 04/19/22 20:59 Last Admin: 03/21/22 09:07 Dose: 5 mg Ascorbic Acid (Ascorbic Acid 500 Mg Tab) 500 mg PO QAM [facility] Stop: 04/20/22 08:59 Last Admin: 03/21/22 09:07 Dose: 500 mg Bisacodyl (Bisacodyl 5 Mg Tabec) 5 mg PO BID PRN PRN Reason: Constipation Stop: 04/19/22 18:03 Cyanocobalamin (Cyanocobalamin (B-12) 500 Mcg Tablet) 500 mcg PO QAM [facility] Stop: 04/20/22 08:59 Last Admin: 03/21/22 09:07 Dose: 500 mcg Dextrose (Dextrose 50% 50 Ml Syringe) 25 - 50 ml IV UD PRN; Protocol PRN Reason: Hypoglycemia Protocol Stop: 04/19/22 18:11 Diltiazem HCl (Diltiazem Hcl 180 Mg Capcr) [address] [facility] Stop: 04/20/22 08:59 Last Admin: 03/21/22 09:08 Dose: Not Given Duloxetine HCl (Duloxetine Hcl 60 Mg Cap) [address] [facility] Stop: 04/20/22 08:59 Last Admin: 03/21/22 09:06 Dose: 60 mg Gabapentin (Gabapentin 100 Mg Cap) [address] [facility] Stop: 04/20/22 08:59 Last Admin: 03/21/22 09:07 Dose: 200 mg Glucagon (Glucagon For Inj 1 Mg Vial) 1 mg SQ UD PRN; Protocol PRN Reason: Hypoglycemia Protocol Stop: 04/19/22 18:11 Glucose (Glucose 40% Gel 15 Gm Tube) 15 - 30 gm PO UD PRN; Protocol PRN Reason: Hypoglycemia Protocol Stop: 04/19/22 18:11 Glucose (Glucose 10 Tab/Tube) 4 - 8 tab PO UD PRN; Protocol PRN Reason: Hypoglycemia Treatment Stop: 04/19/22 18:11 Ceftriaxone Sodium 2,000 mg/ (Dextrose) 70 mls @ 100 mls/hr IV Q24H [facility]; Protocol Stop: 03/31/22 08:59 Last Infusion: 03/21/22 10:00 Dose: Infused Sodium Chloride (Nss 1000ml) 1,000 mls @ 80 mls/hr IV .[id number] [facility] Stop: 03/21/22 20:44 Last Admin: 03/21/22 09:14 Dose: 80 mls/hr Insulin Aspart (Insulin Aspart Per Unit) 0 units SC ACHS [facility] Stop: 04/19/22 20:59 Last Admin: 03/21/22 09:04 Dose: 4 units Insulin Glargine (Lantus Per Unit Charge) 30 units SQ HS [facility] Stop: 04/19/22 20:59 Last Admin: 03/20/22 21:27 Dose: 30 units Miconazole Nitrate (Miconazole Nitrate Powder 43 Gm) 1 appln EXT PRN PRN PRN Reason: Affected Skin Folds Stop: 04/05/22 10:16 Miscellaneous (Carbohydrates For Hypoglycemia ) 15 - 30 gm PO UD PRN PRN Reason: Hypoglycemia Protocol Stop: 04/19/22 18:11 Miscellaneous Information (Pharmacy Glycemic Mgmt Consult) 1 each N/A UD PRN PRN Reason: Consult Stop: 04/19/22 18:11 Nitroglycerin (Nitroglycerin Sl 0.4 Mg/Tab Tab) 0.4 mg SL UD PRN PRN Reason: Chest Pain Stop: 04/19/22 17:32 Polyethylene Glycol (Polyethylene (Miralax) 17 Gm Pack) 17 gm PO DAILY PRN PRN Reason: Constipation Stop: 04/19/22 17:32 Last Admin: 03/21/22 09:21 Dose: 17 gm Pravastatin Sodium (Pravastatin Sod 40 Mg Tab) 40 mg PO DAILY@1700 [facility] Stop: 04/19/22 18:09 Last Admin: 03/20/22 19:45 Dose: 40 mg Trazodone HCl (Trazodone Hcl 50 Mg Tab) 75 mg PO HS [facility] Stop: 04/19/22 20:59 Last Admin: 03/20/22 21:26 Dose: 75 mg Vitamin D (Cholecalciferol 1,000 Units 25 Mcg Tab) 1,000 units PO QAM [facility] Stop: 04/20/22 08:59
[2022-03-21] MEDS: CHOLECALCIFEROL 1,000 UNITS 25 MCG TAB PO SCH (12:40)
[2022-03-21] MEDS: ACETAMINOPHEN 325 MG TAB PO PRN (13:26)
--- NOTE | 2022-03-21 14:01 | Pharmacy Report ---
Pharmacy Glycemic Short Note 2 - Date of Service March 21, 2022 - Glycemic Short BSG Results (Last 24 hours): 03/20/22 03/20/22 03/20/22 15:41 21:13 22:11 Glucose 152 H POC Glucose 130 H 145 H 03/21/22 03/21/22 03/21/22 07:25 07:41 11:39 Glucose 103 H POC Glucose 112 H 145 H OUTPATIENT ANTIDIABETIC REGIMEN: * Lantus 40 units HS * HbA1C = 5.6 (03/20/22) ASSESSMENT: * Ms Rose is a 66 y/o F with a PMH of T2DM who presents with a UTI. Patient's home regimen very basal heavy with 40 units of insulin. * Patient given 30 units of Lantus last night and fasting today was 112 mg/dL. * Will reduce by 20% again to 25 units. * Continue weight-based stress of 2 Novolog. PLAN FOR INPATIENT GLYCEMIC CONTROL: * Basal insulin * Lantus 25 units SQ HS * Bolus insulin * NovoLog per scale ACHS or Q6hrs while NPO * Goal Range: Low 110 mg/dL - High 140 mg/dL * Correction Factor: 25 mg/dL/unit * Nutritional / Prandial insulin per carb ratio of 1 unit per 8 grams CHO consumed
[2022-03-21] MEDS ORDERED: POTASSIUM CHLORIDE CRTAB 20 MEQ TABCR PO STA (14:11)
[2022-03-21 14:42] LABS: A calco-baum cmplx NotReported Not Detected (NotDetected); Bact fragilis Not Reported Not Detected (NotDetected); C auris Not Reported Not Detected (NotDetected); Calbicans Not Reported Not Detected (NotDetected); Candida glabrata Not Reported Not Detected (NotDetected); Candida krusei Not Reported Not Detected (NotDetected); Cneoformans/gatti Not Reported Not Detected (NotDetected); Cparapsilosis Not Reported Not Detected (NotDetected); Ctropicalis Not Reported Not Detected (NotDetected); E cloacae compx Not Reported Not Detected (NotDetected); Efaecalis Not Reported Not Detected (NotDetected); Efaecium Not Reported Not Detected (NotDetected); Enterobacterales Not Reported Not Detected (NotDetected); Escherichia coli Not Reported Not Detected (NotDetected); H influenzae Not Reported Not Detected (NotDetected); K aerogenes Not Reported Not Detected (NotDetected); Koxytoca Not Reported Not Detected (NotDetected); Kpneumoniae grp Not Reported Not Detected (NotDetected); Lmonocyt Not Reported Not Detected (NotDetected); N meningitidis Not Reported Not Detected (NotDetected); P aeruginosa Not Reported Not Detected (NotDetected); Proteus spp Not Reported Not Detected (NotDetected); Salmonella spp Not Reported Not Detected (NotDetected); Smarcescens Not Reported Not Detected (NotDetected); Staph lugdunensis Not Reported Not Detected (NotDetected); Staphaureus Not Reported Not Detected (NotDetected); Stenmaltophilia Not Reported Not Detected (NotDetected); Strep agal(GrpB) Not Reported Not Detected (NotDetected); Strep pneum Not Reported Not Detected (NotDetected); Strep pyog (GrpA) Not Reported Not Detected (NotDetected); Strep spp Not Reported Not Detected (NotDetected)
[2022-03-21 14:49] LABS: Staph spp. Not Reported DETECTED (NotDetected); Staphepi Not Reported DETECTED (NotDetected); Staphylococcus epidermidis DETECTED (NotDetected); Staphylococcus spp. DETECTED (NotDetected); mecAC Resistant Gene DETECTED (NotDetected)
[2022-03-21] MEDS ORDERED: VANCOMYCIN CONSULT ACTIVE PRN (15:00)
[2022-03-21] MEDS ORDERED: VANCOMYCIN HCL 2,000 MG in SODIUM CHLORIDE 0.9% 500 ML IV ONE (15:15)
--- NOTE | 2022-03-21 16:57 | Pharmacy Report ---
Pharmacy PK ABX Note - Date of Service March 21, 2022 - Assessment and Plan Assessment 66 year old F receiving VANCOMYCIN for treatment of BACTEREMIA. Pertinent microbiologic data includes: BLOOD culture growing GPCs- Biofire Staphylococcus with MecA resistance x1 bottle. Day # 1/? of antimicrobial therapy. Plan Vancomycin * Loading dose: 2000 mg IV x 1 * Maintenance dose: 1500 mg IV every 12 hours * Regimen is predicted to achieve target AUC/SOL of 400-600 mg/L.hr * Random level ordered for: 03/23/22 with AM labs Pharmacy will continue to follow and will adjust dose/frequency as necessary. Thank you. Pharmacy has transitioned to AUC monitoring for vancomycin. AUC/SOL is the preferred PK/PD target and is associated with decreased risk of nephrotoxicity compared to traditional trough targets.
[2022-03-21] MEDS: PRAVASTATIN SOD 40 MG TAB PO SCH (17:23)
[2022-03-21] MEDS ORDERED: VANCOMYCIN HCL 1,500 MG in SODIUM CHLORIDE 0.9% 500 ML IV SCH (21:00)
[2022-03-21] MEDS ORDERED: LANTUS PER UNIT CHARGE SQ SCH (21:00)
[2022-03-21] MEDS: MAGNESIUM OXIDE 400 MG TAB PO SCH (21:19)
[2022-03-21] MEDS: VANCOMYCIN HCL 1,500 MG in SODIUM CHLORIDE 0.9% 500 ML IV SCH (21:20)
[2022-03-21] MEDS: traZODone HCL 50 MG TAB PO SCH (21:26)
[2022-03-22 08:36] LABS: BUN Creatinine Ratio 25.8 (10-20); Est GFR (African American) 134.9 ml/min; Est GFR (Non-African American) 116.4 ml/min; Magnesium 1.7 mg/dl (1.7-2.4); Phosphorus 2.7 mg/dl (2.5-4.9); Potassium 4.4 mmol/L (3.5-5.1)
[2022-03-22] MEDS ORDERED: METOPROLOL TARTRATE 25 MG TAB PO SCH (09:00)
[2022-03-22] MEDS: INSULIN ASPART PER UNIT SC SCH ×4 (09:20→20:54)
[2022-03-22] MEDS: MAGNESIUM OXIDE 400 MG TAB PO SCH ×2 (10:11→20:19)
[2022-03-22] MEDS: APIXABAN 5 MG TABLET PO SCH ×2 (10:12→20:19)
[2022-03-22] MEDS: GABAPENTIN 100 MG CAP PO SCH (10:12)
[2022-03-22] MEDS: CYANOCOBALAMIN (B-12) 500 MCG TABLET PO SCH (10:12)
[2022-03-22] MEDS: dilTIAZem HCL 180 MG CAPCR PO SCH (10:12)
[2022-03-22] MEDS: CHOLECALCIFEROL 1,000 UNITS 25 MCG TAB PO SCH (10:13)
[2022-03-22] MEDS: ASCORBIC ACID 500 MG TAB PO SCH (10:13)
[2022-03-22] MEDS: DULoxetine HCL 60 MG CAP PO SCH (10:13)
[2022-03-22] MEDS: cefTRIAXone SODIUM 2,000 MG in DEXTROSE 5% 50 ML IV SCH (10:39)
[2022-03-22] MEDS: METOPROLOL TARTRATE 25 MG TAB PO SCH ×2 (10:45→20:19)
--- NOTE | 2022-03-22 11:15 | Cardiology Consultation ---
Date of Consultation March 22, 2022 Assessment & Plan (1) Paroxysmal atrial fibrillation: (2) Elevated troponin: (3) H/O: CVA (cerebrovascular accident): (4) Acute UTI: (5) DM2 (diabetes mellitus, type 2): Plan I think conservative management is indicated with this patient. I do not know if her chest pain is related to her heart as she is all over the place during my interview with her and very emotional. I think the best option is to start her on Nitropaste every 6 hours and see how she does. I agree with holding the atenolol and sotalol for now. I would continue the apixaban. We will continue to follow her at this time. History of Present Illness Attending Physician: Chris Montgomery MD History of Present Illness This is a 66-year-old female who is a resident of her side for several years and a poor historian. It seems like she has been a resident at her side for several years following a stroke. She is not happy about being at her side and angry at her sister who put her there. Most of the information is taken from the medical record which is unfortunately is fragmented between several different healthcare institutions. Accordingly, there is a summary during her last hospital admission to [facility]. She apparently has had a peripheral neuropathy for many years and was wheelchair-bound prior to having a stroke in September of this year. At that time scanning indicated multiple small embolic events felt to be due to atrial fibrillation. At that time she was anticoagulated with apixaban. Her EKGs after admission reveals sinus rhythm with a first-degree AV block. According to the H&P she was admitted from her side with a UTI. She has an indwelling Milan catheter. After admission she expressed that she had had chest pain at the custodial. Her EKG showed no acute changes. Her high- sensitivity troponins are borderline elevated without a significant delta. She is very emotional during my exam today. Allergies Allergy/AdvReac Type Severity Reaction Status Date / Time adhesive tape Allergy Unknown Unknown Verified 03/20/22 18:15 aspirin Allergy Unknown Unknown Verified 03/20/22 18:15 atorvastatin Allergy Unknown Unknown Verified 03/20/22 18:15 citalopram [From Celexa] Allergy Unknown Unknown Verified 03/20/22 18:15 Iodinated Contrast Media Allergy Unknown Unknown Verified 03/20/22 18:15 iodine Allergy Unknown Unknown Verified 03/20/22 18:15 latex Allergy Unknown Unknown Verified 03/20/22 18:15 sertraline [From Zoloft] Allergy Unknown Unknown Verified 03/20/22 18:15 Sulfa (Sulfonamide Allergy Unknown Unknown Verified 03/20/22 18:15 Antibiotics) ekg leads Allergy Unknown Unknown Uncoded 03/20/22 18:15 Home Medications Medication Instructions Recorded Confirmed Type acetaminophen 325 mg tablet 650 mg PO Q6 PRN Pain 03/20/22 03/20/22 History acetaminophen 325 mg tablet 650 mg PO Q6 PRN temp>101 03/20/22 03/20/22 History apixaban 5 mg tablet (Eliquis) 5 mg PO BID 03/20/22 03/20/22 History ascorbic acid (vitamin C) 500 mg 500 mg PO DAILY 03/20/22 03/20/22 History tablet (Vitamin C) cholecalciferol (vitamin D3) 125 125 mcg PO DAILY 03/20/22 03/20/22 History mcg (5,000 unit) tablet (Vitamin D3) cholecalciferol (vitamin D3) 25 25 mcg PO . DAILY (ON HOLD) 03/20/22 03/20/22 History mcg (1,000 unit) tablet diltiazem HCl 180 mg 180 mg PO DAILY 03/20/22 03/20/22 History capsule,extended release 24 hr duloxetine 60 mg capsule,delayed 60 mg PO DAILY 03/20/22 03/20/22 History release furosemide 40 mg tablet 40 mg PO DAILY 03/20/22 03/20/22 History gabapentin 100 mg capsule 200 mg PO DAILY 03/20/22 03/20/22 History insulin glargine 100 unit/mL (3 40 unit subcut HS 03/20/22 03/20/22 History mL) subcutaneous pen (Lantus Solostar U-100 Insulin) lisinopril 10 mg tablet 10 mg PO DAILY 03/20/22 03/20/22 History metoprolol tartrate 25 mg tablet 25 mg PO . BID (ON HOLD) 03/20/22 03/20/22 History polyethylene glycol 3350 17 17 g PO DAILY 03/20/22 03/20/22 History gram/dose oral powder (Miralax) pravastatin 40 mg tablet 40 mg PO DAILY 03/20/22 03/20/22 History sitagliptin phosphate 100 mg 100 mg PO DAILY 03/20/22 03/20/22 History tablet (Januvia) sotalol 80 mg tablet 80 mg PO . BID( ON HOLD ) 03/20/22 03/20/22 History trazodone 150 mg tablet 75 mg PO HS 03/20/22 03/20/22 History zinc acetate 50 mg (zinc) capsule 50 mg PO DAILY 03/20/22 03/20/22 History Patient History Social History Smoking Status: Never smoker Second Hand Exposure: No; Do You Dip or Chew Tobacco: No; Tobacco Cessation Education Requested by Patient: No Hx Alcohol Use: No Hx Substance Use: No Communication Ability: Effective Beliefs That Will Affect Care: None Current Living Situation: [facility] Feels Safe at Home: Yes Assistive Devices: Hospital Bed and Wheelchair Assistive Devices Comment: Wears upper dentures - did not bring Review of Systems Review of Systems: Review of Systems: See HPI for pertinent positives. All other 10 point review of systems are negative. Physical Exam Physical Exam: General: no acute distress and stated age Head: normocephalic, no masses, lesions, tenderness or abnormalities Eyes: conjunctiva are pink and non-injected, sclera clear Neck: supple, no adenopathy, no bruits, normal jugular venous pulse, no h epatojugular reflux Chest: normal shape and normal respiratory effort Lungs: clear to auscultation and percussion Cardiac Exam: - regular rate & rhythm, no murmurs gallops or rubs - normal S1, normal S2 Pulses: 2(+) throughout Abdomen: abdomen soft, non-tender, no abnormal masses and no hepatosplenomegaly Musculoskeletal: no gait disturbance, no joint inflammation, no deforming arthritis Extremities: no edema and no cyanosis Neuro: grossly normal exam Results & Data ([facility]) Vital Signs (Past 12 Hours) Vital Signs Temp Pulse Pulse Resp BP Pulse Ox O2 Del Method 03/22/22 10:41 36.5 C 110 H 20 104/67 Room Air 03/22/22 07:53 36.8 C 59 L 16 122/76 94 Room Air 03/22/22 05:32 94 H 03/22/22 03:09 36.9 C 105 H 18 125/82 95 Room Air Laboratory Results Laboratory Results - last 24 hr 03/20/22 03/21/22 03/21/22 15:58 11:39 16:30 Sodium Potassium Chloride Carbon Dioxide Anion Gap BUN Creatinine Est Cr Clr Drug Dosing Est GFR ( Amer) Est GFR (Non-Af Amer) BUN/Creatinine Ratio Glucose POC Glucose 145 H 80 Calcium Phosphorus Magnesium Troponin I High Sens Staphylococcus sp PCR DETECTED A mecA/C-Methicil Resis Gene DETECTED A Staph epidermidis (PCR) DETECTED A Bld Cult ID Panel PCR See PCR Comment 03/21/22 03/22/22 03/22/22 20:34 07:58 07:58 Sodium 133 L Potassium 4.4 Chloride 102 Carbon Dioxide 26 Anion Gap 5 BUN 8 Creatinine 0.31 L Est Cr Clr Drug Dosing 176.0 Est GFR ( Amer) 134.9 Est GFR (Non-Af Amer) 116.4 BUN/Creatinine Ratio 25.8 H Glucose 86 POC Glucose 83 Calcium 8.0 L Phosphorus 2.7 Magnesium 1.7 Troponin I High Sens 23.2 H D Staphylococcus sp PCR mecA/C-Methicil Resis Gene Staph epidermidis (PCR) Bld Cult ID Panel PCR 03/22/22 08:02 Sodium Potassium Chloride Carbon Dioxide Anion Gap BUN Creatinine Est Cr Clr Drug Dosing Est GFR ( Amer) Est GFR (Non-Af Amer) BUN/Creatinine Ratio Glucose POC Glucose 87 Calcium Phosphorus Magnesium Troponin I High Sens Staphylococcus sp PCR mecA/C-Methicil Resis Gene Staph epidermidis (PCR) Bld Cult ID Panel PCR Medications Administered Current Inpatient Medications Acetaminophen (Acetaminophen 325 Mg Tab) 650 mg PO Q4H PRN PRN Reason: Pain or Fever Stop: 04/19/22 17:32 Last Admin: 03/21/22 13:26 Dose: 650 mg Apixaban (Apixaban 5 Mg Tablet) 5 mg PO BID [facility] Stop: 04/19/22 20:59 Last Admin: 03/22/22 10:12 Dose: 5 mg Ascorbic Acid (Ascorbic Acid 500 Mg Tab) 500 mg PO QAM [facility] Stop: 04/20/22 08:59 Last Admin: 03/22/22 10:13 Dose: 500 mg Bisacodyl (Bisacodyl 5 Mg Tabec) 5 mg PO BID PRN PRN Reason: Constipation Stop: 04/19/22 18:03 Cyanocobalamin (Cyanocobalamin (B-12) 500 Mcg Tablet) 500 mcg PO QAM [facility] Stop: 04/20/22 08:59 Last Admin: 03/22/22 10:12 Dose: 500 mcg Dextrose (Dextrose 50% 50 Ml Syringe) 25 - 50 ml IV UD PRN; Protocol PRN Reason: Hypoglycemia Protocol Stop: 04/19/22 18:11 Diltiazem HCl (D[facility]iazem Hcl 180 Mg Capcr) [facility] [place]: 04/20/22 08:59 Last Admin: 03/22/22 10:12 Dose: 180 mg Duloxetine HCl (Duloxetine Hcl 60 Mg Cap) 60 mg PO QAM [facility] Stop: 04/20/22 08:59 Last Admin: 03/22/22 10:13 Dose: 60 mg Gabapentin (Gabapentin 100 Mg Cap) 200 mg PO QAM [facility] Stop: 04/20/22 08:59 Last Admin: 03/22/22 10:12 Dose: 200 mg Glucagon (Glucagon For Inj 1 Mg Vial) 1 mg SQ UD PRN; Protocol PRN Reason: Hypoglycemia Protocol Stop: 04/19/22 18:11 Glucose (Glucose 40% Gel 15 Gm Tube) 15 - 30 gm PO UD PRN; Protocol PRN Reason: Hypoglycemia Protocol Stop: 04/19/22 18:11 Glucose (Glucose 10 Tab/Tube) 4 - 8 tab PO UD PRN; Protocol PRN Reason: Hypoglycemia Treatment Stop: 04/19/22 18:11 Ceftriaxone Sodium 2,000 mg/ (Dextrose) 70 mls @ 100 mls/hr IV Q24H [facility]; Protocol Stop: 03/31/22 08:59 Last Admin: 03/22/22 10:39 Dose: 100 mls/hr Vancomycin HCl 1,500 mg/ (Sodium Chloride) 530 mls @ 200 mls/hr IV Q12H [facility]; Protocol Stop: 03/23/22 21:59 Last Infusion: 03/22/22 00:01 Dose: Infused Insulin Aspart (Insulin Aspart Per Unit) 0 units SC ACHS [facility] Stop: 04/19/22 20:59 Last Admin: 03/22/22 09:20 Dose: Not Given Insulin Glargine (Lantus Per Unit Charge) 25 units SQ HS [facility] Stop: 04/20/22 20:59 Last Admin: 03/21/22 20:49 Dose: Not Given Magnesium Oxide (Magnesium Oxide 400 Mg Tab) 400 mg PO BID [facility] Stop: 03/23/22 09:01 Last Admin: 03/22/22 10:11 Dose: 400 mg Metoprolol Tartrate (Metoprolol Tartrate 25 Mg Tab) 25 mg PO BID [facility] Stop: 04/21/22 09:59 Last Admin: 03/22/22 10:45 Dose: 25 mg Miconazole Nitrate (Miconazole Nitrate Powder 43 Gm) 1 appln EXT PRN PRN PRN Reason: Affected Skin Folds Stop: 04/05/22 10:16 Miscellaneous (Carbohydrates For Hypoglycemia ) 15 - 30 gm PO UD PRN PRN Reason: Hypoglycemia Protocol Stop: 04/19/22 18:11 Miscellaneous Information (Pharmacy Glycemic Mgmt Consult) 1 each N/A UD PRN PRN Reason: Consult Stop: 04/19/22 18:11 Miscellaneous Information (Vancomycin Consult Active) 1 each N/A UD PRN PRN Reason: Consult Stop: 04/20/22 14:59 Nitroglycerin (Nitroglycerin Sl 0.4 Mg/Tab Tab) 0.4 mg SL UD PRN PRN Reason: Chest Pain Stop: 04/19/22 17:32 Last Admin: 03/22/22 10:10 Dose: 0.4 mg Polyethylene Glycol (Polyethylene (Miralax) 17 Gm Pack) 17 gm PO DAILY PRN PRN Reason: Constipation Stop: 04/19/22 17:32 Last Admin: 03/21/22 09:21 Dose: 17 gm Pravastatin Sodium (Pravastatin Sod 40 Mg Tab) 40 mg PO DAILY@1700 [facility] Stop: 04/19/22 18:09 Last Admin: 03/21/22 17:23 Dose: 40 mg Trazodone HCl (Trazodone Hcl 50 Mg Tab) 75 mg PO HS [facility] Stop: 04/19/22 20:59 Last Admin: 03/21/22 21:26 Dose: 75 mg Vitamin D (Cholecalciferol 1,000 Units 25 Mcg Tab) 1,000 units PO QAM [facility] Stop: 04/20/22 08:59 Last Admin: 03/22/22 10:13 Dose: 1,000 units
[2022-03-22] MEDS: VANCOMYCIN HCL 1,500 MG in SODIUM CHLORIDE 0.9% 500 ML IV SCH ×2 (11:41→22:48)
[2022-03-22] MEDS: ACETAMINOPHEN 325 MG TAB PO PRN (11:56)
--- NOTE | 2022-03-22 12:04 | Hospitalist Progress Note ---
Date of Service March 22, 2022 Assessment & Plan (1) Acute UTI: Plan: - presenting with malaise, fatigue, decreased appetite - UA positive for infection - in the setting of chronic indwelling lovelace catheter and presenting symptoms with positive UA will treat for UTI - urine culture initially with possible contamination, repeat without growth but patient had been on abx for 2 days - blood cultures with Coag-neg staph 1/4 bottles, likely contaminant but started on vancomycin, repeat blood cultures drawn prior to vanco administration - continue ceftriaxone, vancomycin - encourage PO intake - will monitor for response (2) Chest pain: Plan: - complained of pressure like chest pain 03/22/2022 - ECG and trop unremarkable - given recurrent episode and pressure like pain, cardiology consulted - recommend conservative management for now - will do nitro paste q6 hours and monitor for response - continue Eliquis (3) Hyponatremia: Plan: - likely in the setting of decreased po intake - given NS in ED - BP stable, respiratory status stable - continue gentle IVF - monitor Na on BMP daily - improved (4) Paroxysmal atrial fibrillation: Plan: - in NSR on admission ECG - rate controlled on ?diltiazem, sotalol, metoprolol? on med list from [place] - will continue diltiazem, restarted metoprolol today - continue to hold sotalol - monitor on telemetry - continue eliquis (5) DM2 (diabetes mellitus, type 2): Plan: - A1c 5.6% 02/2022 - on lantus 40units qhs at [facility] - started on lantus - pharmacy glycemic consult following - SSI for now - FSG AC+HS - diabetic diet (6) H/O: CVA (cerebrovascular accident): Plan: - right sided hemiplegia with very minimal functioning on right - appears to be at baseline - continue statin and Eliquis (7) HTN (hypertension): Plan: - patient BP a little low on presentation possibly in the setting of hypovolemia from decrease po - IVF as above - home meds from [place] are lisinopril 10mg daily, diltiazem 180mg daily, [id number] BID, Lopressor 25mg BID - continue diltiazem for now, hold others - restart as tolerated (8) HLD (hyperlipidemia): Plan: - continue statin (9) Depression with anxiety: Plan: - continue home meds (10) Neurogenic bladder: Plan: - change lovelace on admission - continue for now - abx as above Plan DVT ppx: Eliquis Code Status: Full Code Dispo: telemetry Chris Montgomery MD [facility] Medicine Admission and Anticipated Discharge Date Admission Date: March 20, 2022 Subjective Patient with h/o CVA with right hemiplegia, DM2, HTN, MDD/anxiety, afib on eliquis, HLD, neurogenic bladder with chronic indwelling lovelace catheter presented from [facility] with report of chest pain 1 day prior to admission and generalized fatigue. Found to have UTI, Lovelace exchanged, culture sent, ceftriaxone started, IVF. troponin trended down, ECG without ischemic changes. Had episode of chest pain while inpatient, ECG unremarkable, troponin lower than admission. Cardiology consulted, conservative management recommended. Patient complained of chest pain with some light headedness this morning. Still feeling fatigued. Denies shortness of breath, n/v/d, abdominal pain. Review of Systems Review of Systems: All systems reviewed & are unremarkable except as noted in Subjective Physical Exam Physical Exam: GENERAL: alert and oriented in no acute distress on stretcher Head: normocephalic and atraumatic EYES: No injection, discharge or icterus. NECK: Trachea midline. ENT: Mucous membranes pink and moist. LUNGS: Airway patent. No retractions. Breath sounds clear with good air entry bilaterally. HEART: Regular rate and rhythm. No chest wall tenderness ABDOMEN: Soft, nontender, without guarding or rebound. SKIN: Acyanotic, warm, dry, without rashes EXTREMITIES: Without swelling, tenderness or deformity NEUROLOGICAL: Right-sided hemiplegia. Movement of the left foot and arm noted Arm>leg/foot on left. No significant aphasia or dysarthria. Patient at times takes an extra moment or 2 to formulate words. She states this is her baseline. has light squeez on right hand 1/5 Results & Data Results & Data ([facility]) Vital Signs (Past 12 Hours) Vital Signs Temp Pulse Pulse Resp BP Pulse Ox O2 Del Method 03/22/22 10:41 36.5 C 110 H 20 104/67 Room Air 03/22/22 07:53 36.8 C 59 L 16 122/76 94 Room Air 03/22/22 05:32 94 H 03/22/22 03:09 36.9 C 105 H 18 125/82 95 Room Air Diagnostic Findings Laboratory Results WBC 10.51 K/ul (4.8-10.8) 03/21/22 07:25 RBC 5.14 M/uL (3.93-5.22) 03/21/22 07:25 Hgb 13.8 g/dl (12.0-16.0) 03/21/22 07:25 Hct 41.4 % (34.1-44.9) 03/21/22 07:25 MCV 80.5 fL (80.0-100.0) 03/21/22 07:25 MCH 26.8 pg (25.0-34.0) 03/21/22 07:25 MCHC 33.3 g/dL (32.0-36.0) 03/21/22 07:25 RDW Std Deviation 42.4 fL (36.4-46.3) 03/21/22 07:25 RDW Coeff of Nelson 14.5 % (11.5-14.5) 03/21/22 07:25 Plt Count 360 K/uL (130-400) 03/21/22 07:25 MPV 10.9 fL (9.4-12.3) 03/21/22 07:25 Immature Gran % (Auto) 0.4 % 03/21/22 07:25 Neut % (Auto) 68.7 % 03/21/22 07:25 Lymph % (Auto) 19.0 % 03/21/22 07:25 Mobile % (Auto) 10.7 % 03/21/22 07:25 Eos % (Auto) 0.8 % 03/21/22 07:25 Baso % (Auto) 0.4 % 03/21/22 07:25 Neut # (Auto) 7.23 K/uL (1.4-6.5) H 03/21/22 07:25 Lymph # (Auto) 2.00 K/uL (1.2-3.4) 03/21/22 07:25 Mobile # (Auto) 1.12 K/uL (0.24-0.82) H 03/21/22 07:25 Eos # (Auto) 0.08 K/uL (0-0.50) 03/21/22 07:25 Baso # (Auto) 0.04 K/uL (0-0.2) 03/21/22 07:25 Immature Gran # (Auto) 0.04 K/uL (0.00-0.02) H 03/21/22 07:25 PT 13.1 Seconds (9.0-12.0) H 03/21/22 07:25 INR 1.2 (0.9-1.1) H 03/21/22 07:25 APTT 33.7 Seconds (21.0-31.0) H 03/20/22 15:41 PTT Ratio 1.2 03/20/22 15:41 Sodium 133 mmol/L (136-145) L 03/22/22 07:58 Potassium 4.4 mmol/L (3.5-5.1) 03/22/22 07:58 Chloride 102 mmol/L (98-107) 03/22/22 07:58 Carbon Dioxide 26 mmol/L (21-32) 03/22/22 07:58 Anion Gap 5 (3-11) 03/22/22 07:58 BUN 8 mg/dl (6-23) 03/22/22 07:58 Creatinine 0.31 mg/dl (0.6-1.2) L 03/22/22 07:58 Est Cr Clr Drug Dosing 176.0 ml/min 03/22/22 07:58 Est GFR ( Amer) 134.9 ml/min 03/22/22 07:58 Est GFR (Non-Af Amer) 116.4 ml/min 03/22/22 07:58 BUN/Creatinine Ratio 25.8 (10-20) H 03/22/22 07:58 Glucose 86 mg/dl (70-99(Fasting)) 03/22/22 07:58 POC Glucose 140 mg/dl (70-99) H 03/22/22 11:55 Estimat Average Glucose 114 mg/dl 03/20/22 18:44 Hemoglobin A1c 5.6 % (4.5-5.6) 03/20/22 18:44 Lactate 1.6 mmol/L (0.4-2.0) 03/20/22 16:37 Calcium 8.0 mg/dl (8.5-10.1) L 03/22/22 07:58 Phosphorus 2.7 mg/dl (2.5-4.9) 03/22/22 07:58 Magnesium 1.7 mg/dl (1.7-2.4) 03/22/22 07:58 Total Bilirubin 0.8 mg/dl (0.2-1.0) 03/21/22 07:25 AST 15 U/L (13-39) 03/21/22 07:25 ALT 7 U/L (7-52) 03/21/22 07:25 Alkaline Phosphatase 79 U/L (34-104) 03/21/22 07:25 Troponin I High Sens 23.2 pg/ml (0-14) H D 03/22/22 07:58 C-Reactive Protein 5.22 mg/dl (0-0.5) H 03/21/22 07:25 Total Protein 6.7 gm/dl (6.0-8.3) 03/21/22 07:25 Albumin 3.0 gm/dl (3.4-5.0) L 03/21/22 07:25 Globulin 3.7 gm/dl (2.5-4.0) 03/21/22 07:25 Albumin/Globulin Ratio 0.8 (0.9-2) L 03/21/22 07:25 Triglycerides 91 mg/dl (0-150) 03/20/22 18:44 Cholesterol 97 mg/dl (0-200) 03/20/22 18:44 LDL Cholesterol, Calc 52 mg/dl 03/20/22 18:44 VLDL Cholesterol, Calc 18 mg/dl (0-30) 03/20/22 18:44 HDL Cholesterol 27 mg/dl 03/20/22 18:44 Cholesterol/HDL Ratio 3.6 (0-5) 03/20/22 18:44 Lipase 19 U/L (11-82) 03/20/22 15:41 Procalcitonin 0.11 ng/ml (0-0.5) 03/20/22 15:41 Urine Color Bradley 03/20/22 16:54 Urine Appearance Turbid (Clear) A 03/20/22 16:54 Urine pH 8.0 (4.5-7.5) H 03/20/22 16:54 Ur Specific [place] 1.017 (1.000-1.030) 03/20/22 16:54 Urine Protein 3+ (Negative) H 03/20/22 16:54 Urine Glucose (UA) Negative (Negative) 03/20/22 16:54 Urine Ketones Negative (Negative) 03/20/22 16:54 Urine Blood 3+ (Negative) H 03/20/22 16:54 Urine Nitrite Negative (Negative) 03/20/22 16:54 Urine Bilirubin Negative (Negative) 03/20/22 16:54 Urine Urobilinogen Negative (Negative) 03/20/22 16:54 Ur Leukocyte Esterase 3+ (Negative) H 03/20/22 16:54 Urine WBC (Auto) >30 /hpf (0-5) H 03/20/22 16:54 Urine RBC (Auto) 10-30 /hpf (0-4) H 03/20/22 16:54 U Hyaline Cast (Auto) 0 /lpf (0-5) 03/20/22 16:54 U Epithel Cells (Auto) >30 /lpf (0-5) H 03/20/22 16:54 Urine Bacteria (Auto) 4+ (Negative) H 03/20/22 16:54 Triple Phos Crystals Present (None Prsent) A 03/20/22 16:54 Urine Yeast Not Reportable 03/20/22 16:54 SARS-CoV-2, RNA, NAAT NEGATIVE (NEGATIVE) 03/20/22 Unknown Staphylococcus sp PCR DETECTED (NotDetected) A 03/20/22 15:58 mecA/C-Methicil Resis Gene DETECTED (NotDetected) A 03/20/22 15:58 Staph epidermidis (PCR) DETECTED (NotDetected) A 03/20/22 15:58 Bld Cult ID Panel PCR See PCR Comment (NotDetected) 03/20/22 15:58 Impressions Chest X-Ray 03/20/22 15:41 XR chest 1V portable HISTORY: Atypical Chest pain, nonspecific COMPARISON: None. FINDINGS: The lungs are clear. Cardiac silhouette is normal in size. No pleural effusions. No pneumothorax. Degenerative changes noted within the shoulders. IMPRESSION: No acute process. ACT 112: Negative or not required by law. Electronically signed by: Carlos Benoit M.D. 03/20/2022 4:15 PM Medications Administered Current Inpatient Medications Acetaminophen (Acetaminophen 325 Mg Tab) 650 mg PO Q4H PRN PRN Reason: Pain or Fever Stop: 04/19/22 17:32 Last Admin: 03/22/22 11:56 Dose: 650 mg Apixaban (Apixaban 5 Mg Tablet) 5 mg PO BID [facility] Stop: 04/19/22 20:59 Last Admin: 03/22/22 10:12 Dose: 5 mg Ascorbic Acid (Ascorbic Acid 500 Mg Tab) 500 mg PO QAM [facility] Stop: 04/20/22 08:59 Last Admin: 03/22/22 10:13 Dose: 500 mg Bisacodyl (Bisacodyl 5 Mg Tabec) 5 mg PO BID PRN PRN Reason: Constipation Stop: 04/19/22 18:03 Cyanocobalamin (Cyanocobalamin (B-12) 500 Mcg Tablet) [facility] [place] [facility] Stop: 04/20/22 08:59 Last Admin: 03/22/22 10:12 Dose: 500 mcg Dextrose (Dextrose 50% 50 Ml Syringe) 25 - 50 ml IV UD PRN; Protocol PRN Reason: Hypoglycemia Protocol Stop: 04/19/22 18:11 Diltiazem HCl (Diltiazem Hcl 180 Mg Capcr) 180 mg PO [facility] Stop: 04/20/22 08:59 Last Admin: 03/22/22 10:12 Dose: 180 mg Duloxetine HCl (Duloxetine Hcl 60 Mg Cap) 60 mg PO [facility] Stop: 04/20/22 08:59 Last Admin: 03/22/22 10:13 Dose: 60 mg Gabapentin (Gabapentin 100 Mg Cap) 200 mg PO [facility] Stop: 04/20/22 08:59 Last Admin: 03/22/22 10:12 Dose: 200 mg Glucagon (Glucagon For Inj 1 Mg Vial) 1 mg SQ UD PRN; Protocol PRN Reason: Hypoglycemia Protocol Stop: 04/19/22 18:11 Glucose (Glucose 40% Gel 15 Gm Tube) 15 - 30 gm PO UD PRN; Protocol PRN Reason: Hypoglycemia Protocol Stop: 04/19/22 18:11 Glucose (Glucose 10 Tab/Tube) 4 - 8 tab PO UD PRN; Protocol PRN Reason: Hypoglycemia Treatment Stop: 04/19/22 18:11 Ceftriaxone Sodium 2,000 mg/ (Dextrose) 70 mls @ 100 mls/hr IV Q24H [facility]; Protocol Stop: 03/31/22 08:59 Last Infusion: 03/22/22 11:29 Dose: Infused Vancomycin HCl 1,500 mg/ (Sodium Chloride) 530 mls @ 200 mls/hr IV Q12H [facility]; Protocol Stop: 03/23/22 21:59 Last Admin: 03/22/22 11:41 Dose: 200 mls/hr Insulin Aspart (Insulin Aspart Per Unit) 0 units SC ACHS [facility] Stop: 04/19/22 20:59 Last Admin: 03/22/22 09:20 Dose: Not Given Insulin Glargine (Lantus Per Unit Charge) 25 units SQ HS [facility] Stop: 04/20/22 20:59 Last Admin: 03/21/22 20:49 Dose: Not Given Magnesium Oxide (Magnesium Oxide 400 Mg Tab) 400 mg PO BID [facility] Stop: 03/23/22 09:01 Last Admin: 03/22/22 10:11 Dose: 400 mg Metoprolol Tartrate (Metoprolol Tartrate 25 Mg Tab) 25 mg PO BID [facility] Stop: 04/21/22 09:59 Last Admin: 03/22/22 10:45 Dose: 25 mg Miconazole Nitrate (Miconazole Nitrate Powder 43 Gm) 1 appln EXT PRN PRN PRN Reason: Affected Skin Folds Stop: 04/05/22 10:16 Miscellaneous (Carbohydrates For Hypoglycemia ) 15 - 30 gm PO UD PRN PRN Reason: Hypoglycemia Protocol Stop: 04/19/22 18:11 Miscellaneous Information (Pharmacy Glycemic Mgmt Consult) 1 each N/A UD PRN PRN Reason: Consult Stop: 04/19/22 18:11 Miscellaneous Information (Vancomycin Consult Active) 1 each N/A UD PRN PRN Reason: Consult Stop: 04/20/22 14:59 Nitroglycerin (Nitroglycerin Sl 0.4 Mg/Tab Tab) 0.4 mg SL UD PRN PRN Reason: Chest Pain Stop: 04/19/22 17:32 Last Admin: 03/22/22 10:10 Dose: 0.4 mg Nitroglycerin (Nitroglycerin 2% Ointment 30gm Tube) 0.5 inch EXT Q6H [facility] Stop: 04/21/22 11:29 Polyethylene Glycol (Polyethylene (Miralax) 17 Gm Pack) 17 gm PO DAILY PRN PRN Reason: Constipation Stop: 04/19/22 17:32 Last Admin: 03/21/22 09:21 Dose: 17 gm Pravastatin Sodium (Pravastatin Sod 40 Mg Tab) 40 mg PO DAILY@1700 [facility] Stop: 04/19/22 18:09 Last Admin: 03/21/22 17:23 Dose: 40 mg Trazodone HCl (Trazodone Hcl 50 Mg Tab) 75 mg PO [facility] Stop: 04/19/22 20:59 Last Admin: 03/21/22 21:26 Dose: 75 mg Vitamin D (Cholecalciferol 1,000 Units 25 Mcg Tab) 1,000 units PO [facility] Stop: 04/20/22 08:59 Last Admin: 03/22/22 10:13 Dose: 1,000 units
[2022-03-22] MEDS: NITROGLYCERIN 2% OINTMENT 30GM TUBE EXT SCH ×3 (12:15→22:48)
--- NOTE | 2022-03-22 13:11 | Pharmacy Report ---
Pharmacy Glycemic Short Note 2 - Date of Service March 22, 2022 - Glycemic Short BSG Results (Last 24 hours): 03/21/22 03/21/22 03/22/22 16:30 20:34 07:58 Glucose 86 POC Glucose 80 83 03/22/22 03/22/22 08:02 11:55 Glucose POC Glucose 87 140 H OUTPATIENT ANTIDIABETIC REGIMEN: * Lantus 40 units HS * HbA1C = 5.6 (03/20/22) ASSESSMENT: 03/22/22 * Patient's BSGs yesterday were [id number] mg/dL. Patient received 18 units of bolus insulin yesterday. * Fasting today is 87 mg/dL. Per nursing, patient has poor appetite. * Lunch BSG was 140 mg/dL. * Since patient's last dose of lantus was 03/20 PM, will order some with dinner but it will be drastically decreased- representing only 25% of home dose. * Loosen Novolog since BSGs were lower yesterday. BACKGROUND * Ms Rose is a 66 y/o F with a PMH of T2DM who presents with a UTI. Patient's home regimen very basal heavy with 40 units of insulin. * Patient given 30 units of Lantus last night and fasting today was 112 mg/dL. * Will reduce by 20% again to 25 units. * Continue weight-based stress of 2 Novolog. PLAN FOR INPATIENT GLYCEMIC CONTROL: * Basal insulin * Lantus 10 units SQ HS starting with dinner tonight (15 units if BSG > 140 mg/dL) * Bolus insulin * NovoLog per scale ACHS or Q6hrs while NPO * Goal Range: Low 110 mg/dL - High 140 mg/dL * Correction Factor: 35 mg/dL/unit * Nutritional / Prandial insulin per carb ratio of 1 unit per 12 grams CHO consumed
--- NOTE | 2022-03-22 15:55 | Electrocardiogram Report ---
Test Reason : Blood Pressure : / mmHG Vent. Rate : 088 BPM Atrial Rate : 088 BPM P-R Int : 292 ms QRS Dur : 082 ms QT Int : 370 ms P-R-T Axes : 047 -19 091 degrees QTc Int : 447 ms Poor data quality, interpretation may be adversely affected Sinus rhythm with 1st degree A-V block Possible Anterior infarct , age undetermined Abnormal ECG No previous ECGs available Confirmed by Zachary Mike ([id number]) on 03/22/2022 3:55:00 PM Referred By: ED Confirmed By:Zachary Mike
[2022-03-22] MEDS ORDERED: SODIUM CHLORIDE 0.9% 1000ML 500 ML IV ONE (16:21)
[2022-03-22] MEDS: PRAVASTATIN SOD 40 MG TAB PO SCH (18:00)
[2022-03-22] MEDS: LANTUS PER UNIT CHARGE SQ SCH (18:22)
[2022-03-22] MEDS: traZODone HCL 50 MG TAB PO SCH (20:20)
--- NOTE | 2022-03-22 22:20 | Electrocardiogram Report ---
Test Reason : Blood Pressure : / mmHG Vent. Rate : 094 BPM Atrial Rate : 094 BPM P-R Int : 272 ms QRS Dur : 082 ms QT Int : 360 ms P-R-T Axes : -09 -16 082 degrees QTc Int : 450 ms Sinus rhythm with 1st degree A-V block Poor R wave progression, consider anterior SC vs. lead placement vs. LVH When compared with ECG of 20-MAR-2022 15:25, No significant change was found Confirmed by Zachary Mike ([id number]) on 03/22/2022 10:20:10 PM Referred By: [facility] Confirmed By:Zachary Mike
--- NOTE | 2022-03-22 22:21 | Electrocardiogram Report ---
Test Reason : Blood Pressure : / mmHG Vent. Rate : 094 BPM Atrial Rate : 094 BPM P-R Int : 274 ms QRS Dur : 086 ms QT Int : 366 ms P-R-T Axes : 029 -25 080 degrees QTc Int : 457 ms Sinus rhythm with 1st degree A-V block Poor R wave progression, consider anterior ID vs. lead placement vs. LVH When compared with ECG of 20-MAR-2022 23:28, No significant change was found Confirmed by Zachary Mike ([id number]) on 03/22/2022 10:20:54 PM Referred By: [facility] Confirmed By:Zachary Mike
[2022-03-23] MEDS: INSULIN ASPART PER UNIT SC SCH ×6 (00:45→21:03)
[2022-03-23] MEDS: NITROGLYCERIN 2% OINTMENT 30GM TUBE EXT SCH ×2 (04:56→13:15)
--- NOTE | 2022-03-23 07:06 | Electrocardiogram Report ---
Test Reason : Blood Pressure : / mmHG Vent. Rate : 111 BPM Atrial Rate : 110 BPM P-R Int : 234 ms QRS Dur : 078 ms QT Int : 368 ms P-R-T Axes : 000 -71 057 degrees QTc Int : 501 ms Sinus tachycardia with 1st degree A-V block Left axis deviation Low voltage QRS Septal infarct , age undetermined Prolonged QT Abnormal ECG When compared with ECG of 21-MAR-2022 00:01, QT has lengthened Confirmed by Zachary Mike ([id number]) on 03/23/2022 7:05:38 AM Referred By: [facility] Confirmed By:Zachary Mike
--- NOTE | 2022-03-23 07:19 | Electrocardiogram Report ---
Test Reason : Blood Pressure : / mmHG Vent. Rate : 083 BPM Atrial Rate : 083 BPM P-R Int : 288 ms QRS Dur : 084 ms QT Int : 388 ms P-R-T Axes : 071 -43 063 degrees QTc Int : 455 ms Sinus rhythm with 1st degree A-V block Left axis deviation Low voltage QRS Poor R wave progression, consider anterior NM vs. lead placement vs. LVH Abnormal ECG When compared with ECG of 22-MAR-2022 10:00, Questionable change in initial forces of Septal leads Confirmed by Zachary Mike ([id number]) on 03/23/2022 7:19:19 AM Referred By: [facility] Confirmed By:Zachary Mike
[2022-03-23 08:33] LABS: Albumin Globulin Ratio 0.8 (0.9-2); Albumin Level 2.6 gm/dl (3.4-5.0); BUN Creatinine Ratio 19.4 (10-20); Bilirubin,Total 0.4 mg/dl (0.2-1.0); Creatinine Clr Calc Pharmacy 178.4 ml/min; Est GFR (African American) 134.9 ml/min; Est GFR (Non-African American) 116.4 ml/min; Globulin 3.1 gm/dl (2.5-4.0); Magnesium 1.7 mg/dl (1.7-2.4); Potassium 3.8 mmol/L (3.5-5.1); Total Protein 5.7 gm/dl (6.0-8.3)
[2022-03-23] MEDS ORDERED: VANCOMYCIN LEVEL ONE (09:00)
[2022-03-23] MEDS: dilTIAZem HCL 180 MG CAPCR PO SCH (09:52)
[2022-03-23] MEDS: DULoxetine HCL 60 MG CAP PO SCH (09:52)
[2022-03-23] MEDS: APIXABAN 5 MG TABLET PO SCH ×2 (09:52→21:03)
[2022-03-23] MEDS: METOPROLOL TARTRATE 25 MG TAB PO SCH (09:52)
[2022-03-23] MEDS: GABAPENTIN 100 MG CAP PO SCH (09:52)
[2022-03-23] MEDS: ASCORBIC ACID 500 MG TAB PO SCH (09:52)
[2022-03-23] MEDS: MAGNESIUM OXIDE 400 MG TAB PO SCH (09:52)
[2022-03-23] MEDS: CYANOCOBALAMIN (B-12) 500 MCG TABLET PO SCH (10:08)
[2022-03-23] MEDS: CHOLECALCIFEROL 1,000 UNITS 25 MCG TAB PO SCH (10:15)
[2022-03-23] MEDS: cefTRIAXone SODIUM 2,000 MG in DEXTROSE 5% 50 ML IV SCH (10:39)
--- NOTE | 2022-03-23 10:53 | Hospitalist Progress Note ---
Date of Service March 23, 2022 Assessment & Plan (1) Acute UTI: Plan: - presenting with malaise, fatigue, decreased appetite - UA positive for infection - in the setting of chronic indwelling lovelace catheter and presenting symptoms with positive UA will treat for UTI - urine culture initially with possible contamination, repeat without growth but patient had been on abx for 2 days - blood cultures with Coag-neg staph 1/4 bottles, likely contaminant but started on vancomycin, repeat blood cultures drawn prior to vanco administration - no growth >24 hours, will dc vancomycin - continue ceftriaxone - still with debris in lovelace - UA repeated - encourage PO intake - will monitor for response (2) Chest pain: Plan: - complained of pressure like chest pain 03/22/2022 - ECG and trop unremarkable - given recurrent episode and pressure like pain, cardiology consulted - recommend conservative management for now - will do nitro paste q6 hours and monitor for response - continue Eliquis - no more complaints of chest pain since yesterday (3) Hyponatremia: Plan: - likely in the setting of decreased po intake - given NS in ED - BP stable, respiratory status stable - continue gentle IVF - monitor Na on BMP daily - improved (4) Paroxysmal atrial fibrillation: Plan: - in NSR on admission ECG - rate controlled on ?diltiazem, sotalol, metoprolol? on med list from [place] - will continue diltiazem, restarted metoprolol today - continue to hold sotalol - monitor on telemetry - continue eliquis (5) DM2 (diabetes mellitus, type 2): Plan: - A1c 5.6% 02/2022 - on lantus 40units qhs at [place] - started on lantus - pharmacy glycemic consult following - SSI for now - FSG AC+HS - diabetic diet (6) H/O: CVA (cerebrovascular accident): Plan: - right sided hemiplegia with very minimal functioning on right - appears to be at baseline - continue statin and Eliquis (7) HTN (hypertension): Plan: - patient BP a little low on presentation possibly in the setting of hypovolemia from decrease po - IVF as above - home meds from [place] are lisinopril 10mg daily, diltiazem 180mg daily, [id number] BID, Lopressor 25mg BID - continue diltiazem and metoprolol for now, hold others - may discontinue if HR and BP controlled - restart as tolerated (8) HLD (hyperlipidemia): Plan: - continue statin (9) Depression with anxiety: Plan: - continue home meds (10) Neurogenic bladder: Plan: - change lovelace on admission - continue for now - abx as above Plan DVT ppx: Eliquis Code Status: Full Code Dispo: telemetry Chris Montgomery MD [facility] Medicine Admission and Anticipated Discharge Date Admission Date: March 20, 2022 Subjective Patient with h/o CVA with right hemiplegia, DM2, HTN, MDD/anxiety, afib on eliquis, HLD, neurogenic bladder with chronic indwelling lovelace catheter presented from [facility] with report of chest pain 1 day prior to admission and generalized fatigue. Found to have UTI, Lovelace exchanged, culture sent, ceftriaxone started, IVF. troponin trended down, ECG without ischemic changes. Had episode of chest pain while inpatient, ECG unremarkable, troponin lower than admission. Cardiology consulted, conservative management recommended. Patient feels better today, did not eat much breakfast but drank a boost. Denies chest pain, shortness of breath, n/v/d, abdominal pain. Patient tearful and sad she feels alone and discouraged about physical condition. Feels she does not get good care at [facility] and would like to see if there is another place she can go. Review of Systems Review of Systems: All systems reviewed & are unremarkable except as noted in Subjective Physical Exam Physical Exam: GENERAL: alert and oriented in no acute distress on stretcher Head: normocephalic and atraumatic EYES: No injection, discharge or icterus. NECK: Trachea midline. ENT: Mucous membranes pink and moist. LUNGS: Airway patent. No retractions. Breath sounds clear with good air entry bilaterally. HEART: Regular rate and rhythm. No chest wall tenderness ABDOMEN: Soft, nontender, without guarding or rebound. SKIN: Acyanotic, warm, dry, without rashes EXTREMITIES: Without swelling, tenderness or deformity NEUROLOGICAL: Right-sided hemiplegia. Movement of the left foot and arm noted Arm>leg/foot on left. No significant aphasia or dysarthria. Patient at times takes an extra moment or 2 to formulate words. She states this is her baseline. has light squeez on right hand 1/5 Results & Data Results & Data ([facility]) Vital Signs (Past 12 Hours) Vital Signs Temp Pulse Pulse Resp BP Pulse Ox O2 Del Method 03/23/22 08:00 36.6 C 69 18 118/65 93 Room Air 03/23/22 03:00 36.7 C 67 18 107/59 L 95 Room Air 03/23/22 00:00 71 Diagnostic Findings Laboratory Results WBC 10.51 K/ul (4.8-10.8) 03/21/22 07:25 RBC 5.14 M/uL (3.93-5.22) 03/21/22 07:25 Hgb 13.8 g/dl (12.0-16.0) 03/21/22 07:25 Hct 41.4 % (34.1-44.9) 03/21/22 07:25 MCV 80.5 fL (80.0-100.0) 03/21/22 07:25 MCH 26.8 pg (25.0-34.0) 03/21/22 07:25 MCHC 33.3 g/dL (32.0-36.0) 03/21/22 07:25 RDW Std Deviation 42.4 fL (36.4-46.3) 03/21/22 07:25 RDW Coeff of [place] 14.5 % (11.5-14.5) 03/21/22 07:25 Plt Count 360 K/uL (130-400) 03/21/22 07:25 MPV 10.9 fL (9.4-12.3) 03/21/22 07:25 Immature Gran % (Auto) 0.4 % 03/21/22 07:25 Neut % (Auto) 68.7 % 03/21/22 07:25 Lymph % (Auto) 19.0 % 03/21/22 07:25 [place] % (Auto) 10.7 % 03/21/22 07:25 Eos % (Auto) 0.8 % 03/21/22 07:25 Baso % (Auto) 0.4 % 03/21/22 07:25 Neut # (Auto) 7.23 K/uL (1.4-6.5) H 03/21/22 07:25 Lymph # (Auto) 2.00 K/uL (1.2-3.4) 03/21/22 07:25 [place] # (Auto) 1.12 K/uL (0.24-0.82) H 03/21/22 07:25 Eos # (Auto) 0.08 K/uL (0-0.50) 03/21/22 07:25 Baso # (Auto) 0.04 K/uL (0-0.2) 03/21/22 07:25 Immature Gran # (Auto) 0.04 K/uL (0.00-0.02) H 03/21/22 07:25 PT 13.1 Seconds (9.0-12.0) H 03/21/22 07:25 INR 1.2 (0.9-1.1) H 03/21/22 07:25 APTT 33.7 Seconds (21.0-31.0) H 03/20/22 15:41 PTT Ratio 1.2 03/20/22 15:41 Sodium 135 mmol/L (136-145) L 03/23/22 06:14 Potassium 3.8 mmol/L (3.5-5.1) 03/23/22 06:14 Chloride 105 mmol/L (98-107) 03/23/22 06:14 Carbon Dioxide 22 mmol/L (21-32) 03/23/22 06:14 Anion Gap 8 (3-11) 03/23/22 06:14 BUN 6 mg/dl (6-23) 03/23/22 06:14 Creatinine 0.31 mg/dl (0.6-1.2) L 03/23/22 06:14 Est Cr Clr Drug Dosing 178.4 ml/min 03/23/22 06:14 Est GFR ( Amer) 134.9 ml/min 03/23/22 06:14 Est GFR (Non-Af Amer) 116.4 ml/min 03/23/22 06:14 BUN/Creatinine Ratio 19.4 (10-20) 03/23/22 06:14 Glucose 86 mg/dl (70-99(Fasting)) 03/23/22 06:14 POC Glucose 106 mg/dl (70-99) H 03/23/22 07:39 Estimat Average Glucose 114 mg/dl 03/20/22 18:44 Hemoglobin A1c 5.6 % (4.5-5.6) 03/20/22 18:44 Lactate 1.6 mmol/L (0.4-2.0) 12/21/22 16:37 Calcium 8.0 mg/dl (8.5-10.1) L 03/23/22 06:14 Phosphorus 3.0 mg/dl (2.5-4.9) 03/23/22 06:14 Magnesium 1.7 mg/dl (1.7-2.4) 03/23/22 06:14 Total Bilirubin 0.4 mg/dl (0.2-1.0) 03/23/22 06:14 AST 19 U/L (13-39) 03/23/22 06:14 ALT 8 U/L (7-52) 03/23/22 06:14 Alkaline Phosphatase 67 U/L (34-104) 03/23/22 06:14 Troponin I High Sens 20.5 pg/ml (0-14) H 03/22/22 12:47 C-Reactive Protein 5.22 mg/dl (0-0.5) H 03/21/22 07:25 Total Protein 5.7 gm/dl (6.0-8.3) L 03/23/22 06:14 Albumin 2.6 gm/dl (3.4-5.0) L 03/23/22 06:14 Globulin 3.1 gm/dl (2.5-4.0) 03/23/22 06:14 Albumin/Globulin Ratio 0.8 (0.9-2) L 03/23/22 06:14 Triglycerides 91 mg/dl (0-150) 03/20/22 18:44 Cholesterol 97 mg/dl (0-200) 03/20/22 18:44 LDL Cholesterol, Calc 52 mg/dl 03/20/22 18:44 VLDL Cholesterol, Calc 18 mg/dl (0-30) 03/20/22 18:44 HDL Cholesterol 27 mg/dl 03/20/22 18:44 Cholesterol/HDL Ratio 3.6 (0-5) 03/20/22 18:44 Lipase 19 U/L (11-82) 03/20/22 15:41 Procalcitonin 0.11 ng/ml (0-0.5) 03/20/22 15:41 Urine Color [place] 03/20/22 16:54 Urine Appearance Turbid (Clear) A 03/20/22 16:54 Urine pH 8.0 (4.5-7.5) H 03/20/22 16:54 Ur Specific [place] 1.017 (1.000-1.030) 03/20/22 16:54 Urine Protein 3+ (Negative) H 03/20/22 16:54 Urine Glucose (UA) Negative (Negative) 03/20/22 16:54 Urine Ketones Negative (Negative) 03/20/22 16:54 Urine Blood 3+ (Negative) H 03/20/22 16:54 Urine Nitrite Negative (Negative) 03/20/22 16:54 Urine Bilirubin Negative (Negative) 03/20/22 16:54 Urine Urobilinogen Negative (Negative) 03/20/22 16:54 Ur Leukocyte Esterase 3+ (Negative) H 03/20/22 16:54 Urine WBC (Auto) >30 /hpf (0-5) H 03/20/22 16:54 Urine RBC (Auto) 10-30 /hpf (0-4) H 03/20/22 16:54 U Hyaline Cast (Auto) 0 /lpf (0-5) 03/20/22 16:54 U Epithel Cells (Auto) >30 /lpf (0-5) H 03/20/22 16:54 Urine Bacteria (Auto) 4+ (Negative) H 03/20/22 16:54 Triple Phos Crystals Present (None Prsent) A 03/20/22 16:54 Urine Yeast Not Reportable 03/20/22 16:54 Random Vancomycin 23.3 mcg/ml (10-20) H 03/23/22 06:14 SARS-CoV-2, RNA, NAAT NEGATIVE (NEGATIVE) 03/20/22 Unknown Staphylococcus sp PCR DETECTED (NotDetected) A 03/20/22 15:58 mecA/C-Methicil Resis Gene DETECTED (NotDetected) A 03/20/22 15:58 Staph epidermidis (PCR) DETECTED (NotDetected) A 03/20/22 15:58 Bld Cult ID Panel PCR See PCR Comment (NotDetected) 03/20/22 15:58 Impressions Chest X-Ray 03/20/22 15:41 XR chest 1V portable HISTORY: Atypical Chest pain, nonspecific COMPARISON: None. FINDINGS: The lungs are clear. Cardiac silhouette is normal in size. No pleural effusions. No pneumothorax. Degenerative changes noted within the shoulders. IMPRESSION: No acute process. ACT 112: Negative or not required by law. Electronically signed by: Carlos Benoit M.D. 03/20/2022 4:15 PM Medications Administered Current Inpatient Medications Acetaminophen (Acetaminophen 325 Mg Tab) 650 mg PO Q4H PRN PRN Reason: Pain or Fever Stop: 04/19/22 17:32 Last Admin: 03/22/22 11:56 Dose: 650 mg Apixaban (Apixaban 5 Mg Tablet) 5 mg PO BID [facility] Stop: 04/19/22 20:59 Last Admin: 03/23/22 09:52 Dose: 5 mg Ascorbic Acid (Ascorbic Acid 500 Mg Tab) 500 mg PO QAM [facility] Stop: 04/20/22 08:59 Last Admin: 03/23/22 09:52 Dose: 500 mg Bisacodyl (Bisacodyl 5 Mg Tabec) 5 mg PO BID PRN PRN Reason: Constipation Stop: 04/19/22 18:03 Cyanocobalamin (Cyanocobalamin (B-12) 500 Mcg Tablet) [facility] Stop: 04/20/22 08:59 Last Admin: 03/23/22 10:08 Dose: 500 mcg Dextrose (Dextrose 50% 50 Ml Syringe) 25 - 50 ml IV UD PRN; Protocol PRN Reason: Hypoglycemia Protocol Stop: 04/19/22 18:11 Diltiazem HCl (Diltiazem Hcl 180 Mg Capcr) 180 [facility] Stop: 04/20/22 08:59 Last Admin: 03/23/22 09:52 Dose: 180 mg Duloxetine HCl (Duloxetine Hcl 60 Mg Cap) 60 mg [facility] Stop: 04/20/22 08:59 Last Admin: 03/23/22 09:52 Dose: 60 mg Gabapentin (Gabapentin 100 Mg Cap) 200 mg PO QAM [facility] Stop: 04/20/22 08:59 Last Admin: 03/23/22 09:52 Dose: 200 mg Glucagon (Glucagon For Inj 1 Mg Vial) 1 mg SQ UD PRN; Protocol PRN Reason: Hypoglycemia Protocol Stop: 04/19/22 18:11 Glucose (Glucose 40% Gel 15 Gm Tube) 15 - 30 gm PO UD PRN; Protocol PRN Reason: Hypoglycemia Protocol Stop: 04/19/22 18:11 Glucose (Glucose 10 Tab/Tube) 4 - 8 tab PO UD PRN; Protocol PRN Reason: Hypoglycemia Treatment Stop: 04/19/22 18:11 Ceftriaxone Sodium 2,000 mg/ (Dextrose) 70 mls @ 100 mls/hr IV Q24H [facility]; Protocol Stop: 03/31/22 08:59 Last Admin: 03/23/22 10:39 Dose: 100 mls/hr Insulin Aspart (Insulin Aspart Per Unit) 0 units SC ACHS [facility] Stop: 04/19/22 20:59 Last Admin: 03/23/22 09:20 Dose: Not Given Insulin Glargine (Lantus Per Unit Charge) 0 units SQ HS [facility]; Protocol Stop: 04/21/22 16:29 Last Admin: 03/22/22 18:22 Dose: 10 units Metoprolol Tartrate (Metoprolol Tartrate 25 Mg Tab) 25 mg PO BID [facility] Stop: 04/21/22 09:59 Last Admin: 03/23/22 09:52 Dose: 25 mg Miconazole Nitrate (Miconazole Nitrate Powder 43 Gm) 1 appln EXT PRN PRN PRN Reason: Affected Skin Folds Stop: 04/05/22 10:16 Miscellaneous (Carbohydrates For Hypoglycemia ) 15 - 30 gm PO UD PRN PRN Reason: Hypoglycemia Protocol Stop: 04/19/22 18:11 Miscellaneous Information (Pharmacy Glycemic Mgmt Consult) 1 each N/A UD PRN PRN Reason: Consult Stop: 04/19/22 18:11 Nitroglycerin (Nitroglycerin Sl 0.4 Mg/Tab Tab) 0.4 mg SL UD PRN PRN Reason: Chest Pain Stop: 04/19/22 17:32 Last Admin: 03/22/22 10:10 Dose: 0.4 mg Nitroglycerin (Nitroglycerin 2% Ointment 30gm Tube) 0.5 inch EXT Q6H [facility] Stop: 04/21/22 11:29 Last Admin: 03/23/22 04:56 Dose: 0.5 inch Polyethylene Glycol (Polyethylene (Miralax) 17 Gm Pack) 17 gm PO DAILY PRN PRN Reason: Constipation Stop: 04/19/22 17:32 Last Admin: 03/21/22 09:21 Dose: 17 gm Pravastatin Sodium (Pravastatin Sod 40 Mg Tab) 40 mg PO DAILY@1700 [facility] Stop: 04/19/22 18:09 Last Admin: 03/22/22 18:00 Dose: 40 mg Trazodone HCl (Trazodone Hcl 50 Mg Tab) 75 mg PO [facility] Stop: 04/19/22 20:59 Last Admin: 03/22/22 20:20 Dose: 75 mg Vitamin D (Cholecalciferol 1,000 Units 25 Mcg Tab) 1,000 units PO [facility] Stop: 04/20/22 08:59 Last Admin: 03/23/22 10:15 Dose: 1,000 units
--- NOTE | 2022-03-23 12:57 | Cardiology Progress Note ---
Date of Service March 23, 2022 Assessment & Plan (1) Chest pain: Plan: -DC nitro paste -Pt is a poor historian. -No ongoing symptoms reported (2) Paroxysmal atrial fibrillation: Plan: -Per review of [facility] , pt has not been seen for atrial fibrillation by our group as an outpatient. -Case discussed with Dr Montgomery by phone -[facility], [facility] metoprolol , diltazem , and sotalol with note on [place] records that metoprolol and sotalol had been held (perhaps due to low BP). -Given h/o past stroke I think that rhythm control strategy is indicated. -DC metoprolol and resume sotalol 80 mg two times a day in its place. -Repeat EKG am 03/24 to reassess QTc , with noted trazadone treatment. -Continue Eliquis (3) Acute UTI: Plan: -chronic [place] -Antibiotics therapy per hospitalist service Admission and Anticipated Discharge Date Admission Date: March 20, 2022 Subjective Patient seen in cardiology follow up of chest pain. Telemetry reveals SR in the 70s. Denies chest pain. Physical Exam Constitutional: WD/WN, vitals as above Respiratory: normal respiratory effort, lungs clear to auscultation Cardiovascular: RRR, no murmur, no edema Gastrointestinal (Abdomen): normal bowel sounds, soft, nontender, no hepatosplenomegaly Neurologic: patellar DTR's 2+ bilat, sensation intact Results & Data ([facility]) Vital Signs (Past 12 Hours) Vital Signs Temp Pulse Resp BP Pulse Ox O2 Del Method 03/23/22 11:25 36.6 C 76 18 107/68 94 Room Air 03/23/22 08:00 36.6 C 69 18 118/65 93 Room Air 03/23/22 03:00 36.7 C 67 18 107/59 L 95 Room Air
[2022-03-23] MEDS: PRAVASTATIN SOD 40 MG TAB PO SCH (17:32)
[2022-03-23 20:10] LABS: Appearance Urine Turbid (Clear); Bacteria Urine Automated Negative (Negative); Bilirubin Urine Negative (Negative); Blood Urine 3+ (Negative); Color Urine Dark Yellow; Epithelial Cell Urine Auto >30 /lpf (0-5); Glucose Urine UA Negative (Negative); Ketones Urine Trace (Negative); Leukocyte Esterase Urine 3+ (Negative); Nitrite Urine Negative (Negative); Protein Urine 1+ (Negative); RBC Urine Automated >30 /hpf (0-4); Specific Gravity Urine 1.018 (1.000-1.030); Urobilinogen Urine Negative (Negative); WBC Urine Automated >30 /hpf (0-5)
[2022-03-23] MEDS: SOTALOL HCL 80 MG TAB PO SCH (21:03)
[2022-03-23] MEDS: traZODone HCL 50 MG TAB PO SCH (21:04)
[2022-03-23] MEDS: LANTUS PER UNIT CHARGE SQ SCH (21:04)
[2022-03-23] MEDS: ACETAMINOPHEN 325 MG TAB PO PRN (23:49)
[2022-03-24 06:30] LABS: Basophils # (auto) 0.04 K/uL (0-0.2); Basophils % (auto) 0.7 %; Eosinophils # (auto) 0.29 K/uL (0-0.50); Eosinophils % (auto) 4.7 %; Hemoglobin 12.5 g/dl (12.0-16.0); Immature Granulocytes # (auto) 0.03 K/uL (0.00-0.02); Immature Granulocytes % (auto) 0.5 %; Lymphocytes # (auto) 1.62 K/uL (1.2-3.4); Lymphocytes % (auto) 26.3 %; Mean Corpuscular Hemoglobin 27.7 pg (25.0-34.0); Mean Corpuscular Hgb Conc 33.8 g/dL (32.0-36.0); Mean Platelet Volume 9.5 fL (9.4-12.3); Monocytes # (auto) 0.65 K/uL (0.24-0.82); Monocytes % (auto) 10.6 %; Neutrophils # (auto) 3.52 K/uL (1.4-6.5); Neutrophils % (auto) 57.2 %; Platelet Count 294 K/uL (130-400); RDW Coefficient of Variation 15.1 % (11.5-14.5); RDW Standard Deviation 45.1 fL (36.4-46.3); Red Blood Count 4.51 M/uL (3.93-5.22); White Blood Count 6.15 K/ul (4.8-10.8)
[2022-03-24 06:55] LABS: Creatinine Clr Calc Pharmacy 173.8 ml/min; Est GFR (African American) 133.5 ml/min; Est GFR (Non-African American) 115.2 ml/min
[2022-03-24] MEDS ORDERED: LACTATED RINGER'S 1,000 ML IV ONE (07:11)
--- NOTE | 2022-03-24 08:11 | Pharmacy Report ---
Pharmacy Glycemic Short Note 2 - Date of Service March 24, 2022 - Glycemic Short BSG Results (Last 24 hours): 03/23/22 03/23/22 03/23/22 06:14 11:37 16:46 Glucose 86 POC Glucose 136 H 144 H 03/23/22 03/24/22 20:08 08:00 Glucose POC Glucose 116 H 123 H OUTPATIENT ANTIDIABETIC REGIMEN: * Lantus 40 units HS HbA1C = 5.6 (03/20/22) ASSESSMENT: 03/24/22 * BSGs very well-controlled over past 24 hours, ranging 106-144 mg/dL with fasting BSG of 123 mg/dL this morning * Received 19 units of insulin yesterday (10 units of basal and 9 units of prandial/correctional bolus) * Do not anticipate any changes to glycemic regimen today 03/22/22 * Patient's BSGs yesterday were [phone] mg/dL. Patient received 18 units of bolus insulin yesterday. * Fasting today is 87 mg/dL. Per nursing, patient has poor appetite. * Lunch BSG was 140 mg/dL. * Since patient's last dose of lantus was 03/20 PM, will order some with dinner but it will be drastically decreased- representing only 25% of home dose. * Loosen Novolog since BSGs were lower yesterday. BACKGROUND * Ms Rose is a 66 y/o F with a PMH of T2DM who presents with a UTI. Patient's home regimen very basal heavy with 40 units of insulin. * Patient given 30 units of Lantus last night and fasting today was 112 mg/dL. * Will reduce by 20% again to 25 units. * Continue weight-based stress of 2 Novolog. PLAN FOR INPATIENT GLYCEMIC CONTROL: * Basal insulin * Lantus 10 units SC HS * May consider increasing by 10-20% if fasting BSGs trend up * Bolus insulin * NovoLog per scale ACHS or Q6hrs while NPO * Goal Range: Low 110 mg/dL - High 140 mg/dL * Correction Factor: 35 mg/dL/unit * Nutritional / Prandial insulin per carb ratio of 1 unit per 12 grams CHO consumed
[2022-03-24] MEDS ORDERED: lisinopril 10 MG TAB PO SCH (09:00)
[2022-03-24] MEDS: INSULIN ASPART PER UNIT SC SCH ×2 (09:01→12:26)
[2022-03-24] MEDS: GABAPENTIN 100 MG CAP PO SCH (09:03)
[2022-03-24] MEDS: SOTALOL HCL 80 MG TAB PO SCH (09:03)
[2022-03-24] MEDS: ASCORBIC ACID 500 MG TAB PO SCH (09:03)
[2022-03-24] MEDS: CHOLECALCIFEROL 1,000 UNITS 25 MCG TAB PO SCH (09:03)
[2022-03-24] MEDS: DULoxetine HCL 60 MG CAP PO SCH (09:03)
[2022-03-24] MEDS: dilTIAZem HCL 180 MG CAPCR PO SCH (09:03)
[2022-03-24] MEDS: APIXABAN 5 MG TABLET PO SCH (09:03)
[2022-03-24] MEDS: CYANOCOBALAMIN (B-12) 500 MCG TABLET PO SCH (09:03)
[2022-03-24] MEDS: cefTRIAXone SODIUM 2,000 MG in DEXTROSE 5% 50 ML IV SCH (09:09)
--- NOTE | 2022-03-24 10:42 | Electrocardiogram Report ---
Test Reason : Blood Pressure : / mmHG Vent. Rate : 062 BPM Atrial Rate : 062 BPM P-R Int : 244 ms QRS Dur : 088 ms QT Int : 494 ms P-R-T Axes : 065 -12 042 degrees QTc Int : 501 ms Sinus rhythm with 1st degree A-V block with occasional Premature ventricular complexes Low voltage QRS Nonspecific T wave abnormality Septal infarct (cited on or before 24-MAR-2022) Abnormal ECG When compared with ECG of 22-MAR-2022 14:01, Premature ventricular complexes are now Present T waves are flat Confirmed by Marcus Barreto [id number] on 03/24/2022 10:42:04 AM Referred By: [facility] Confirmed By:Marcus Barreto
[2022-03-24 11:45] VITALS: BP 117/72; TEMP 97.5; O2SAT 99
--- NOTE | 2022-03-24 11:47 | Hospitalist Progress Note ---
Date of Service March 24, 2022 Assessment & Plan (1) Acute UTI: Plan: - presenting with malaise, fatigue, decreased appetite - UA positive for infection - in the setting of chronic indwelling lovelace catheter and presenting symptoms with positive UA will treat for UTI - continue ceftriaxone - repeat urine culture pending - encourage PO intake - will monitor for response (2) Chest pain: Plan: - complained of pressure like chest pain 03/22/2022 - ECG and trop unremarkable - given recurrent episode and pressure like pain, cardiology consulted - recommend conservative management for now - continue sotalol - continue Eliquis - no more complaints of chest pain since yesterday (3) Hyponatremia: Plan: - likely in the setting of decreased po intake - given NS in ED - BP stable, respiratory status stable - continue gentle IVF - monitor Na on BMP daily - improved (4) Paroxysmal atrial fibrillation: Plan: - in NSR on admission ECG - rate controlled on ?diltiazem, sotalol, metoprolol? on med list from [place] - will continue diltiazem, discontinue metorpolol - continue sotalol per Cardiology for rhythm control - monitor on telemetry - continue eliquis (5) DM2 (diabetes mellitus, type 2): Plan: - A1c 5.6% 02/2022 - on lantus 40units qhs at [place] - started on lantus - pharmacy glycemic consult following - SSI for now - FSG AC+HS - diabetic diet (6) H/O: CVA (cerebrovascular accident): Plan: - right sided hemiplegia with very minimal functioning on right - appears to be at baseline - continue statin and Eliquis (7) HTN (hypertension): Plan: - patient BP a little low on presentation possibly in the setting of hypovolemia from decrease po - IVF as above - home meds from [place] are lisinopril 10mg daily, diltiazem 180mg daily, [id number] BID, Lopressor 25mg BID - continue diltiazem and sotalol - dc metoprolol - restart lisinopril today - monitor (8) HLD (hyperlipidemia): Plan: - continue statin (9) Depression with anxiety: Plan: - continue home meds (10) Neurogenic bladder: Plan: - change lovelace on admission - continue for now - abx as above Plan DVT ppx: Eliquis Code Status: Full Code Dispo: telemetry - pending transport back to [facility] Chris Montgomery MD Hospital Medicine Admission and Anticipated Discharge Date Admission Date: March 20, 2022 Subjective Patient with h/o CVA with right hemiplegia, DM2, HTN, MDD/anxiety, afib on eliquis, HLD, neurogenic bladder with chronic indwelling lovelace catheter presented from [facility] with report of chest pain 1 day prior to admission and generalized fatigue. Found to have UTI, Lovelace exchanged, culture sent, ceftriaxone started, IVF. troponin trended down, ECG without ischemic changes. Had episode of chest pain while inpatient, ECG unremarkable, troponin lower than admission. Cardiology consulted, conservative management recommended. Patient feels better today. Denies chest pain, shortness of breath, n/v/d, abdominal pain. Feeling a little better emotionally since yesterday. Otherwise denies comeplaints. Review of Systems Review of Systems: All systems reviewed & are unremarkable except as noted in Subjective Physical Exam Physical Exam: GENERAL: alert and oriented in no acute distress Head: normocephalic and atraumatic EYES: No injection, discharge or icterus. NECK: Trachea midline. ENT: Mucous membranes pink and moist. LUNGS: Airway patent. No retractions. Breath sounds clear with good air entry bilaterally. HEART: Regular rate and rhythm. No chest wall tenderness ABDOMEN: Soft, nontender, without guarding or rebound. SKIN: Acyanotic, warm, dry, without rashes EXTREMITIES: Without swelling, tenderness or deformity NEUROLOGICAL: Right-sided hemiplegia. Movement of the left foot and arm noted Arm>leg/foot on left. No significant aphasia or dysarthria. Patient at times takes an extra moment or 2 to formulate words. She states this is her baseline. has light squeez on right hand 1/5 Results & Data Results & Data ([facility]) Vital Signs (Past 12 Hours) Vital Signs Temp Pulse Pulse Resp BP Pulse Ox O2 Del Method 03/24/22 11:42 36.4 C L 69 18 117/72 99 Room Air 03/24/22 08:01 36.5 C 71 18 126/92 96 Room Air 03/24/22 07:30 Room Air 03/24/22 03:00 36.5 C 72 20 141/92 H 94 Room Air 03/24/22 00:00 90 Diagnostic Findings Laboratory Results WBC 6.15 K/ul (4.8-10.8) 03/24/22 06:05 RBC 4.51 M/uL (3.93-5.22) 03/24/22 06:05 Hgb 12.5 g/dl (12.0-16.0) 03/24/22 06:05 Hct 37.0 % (34.1-44.9) 03/24/22 06:05 MCV 82.0 fL (80.0-100.0) 03/24/22 06:05 MCH 27.7 pg (25.0-34.0) 03/24/22 06:05 MCHC 33.8 g/dL (32.0-36.0) 03/24/22 06:05 RDW Std Deviation 45.1 fL (36.4-46.3) 03/24/22 06:05 RDW Coeff of Nelson 15.1 % (11.5-14.5) H 03/24/22 06:05 Plt Count 294 K/uL (130-400) 03/24/22 06:05 MPV 9.5 fL (9.4-12.3) 03/24/22 06:05 Immature Gran % (Auto) 0.5 % 03/24/22 06:05 Neut % (Auto) 57.2 % 03/24/22 06:05 Lymph % (Auto) 26.3 % 03/24/22 06:05 Griggs % (Auto) 10.6 % 03/24/22 06:05 Eos % (Auto) 4.7 % 03/24/22 06:05 Baso % (Auto) 0.7 % 03/24/22 06:05 Neut # (Auto) 3.52 K/uL (1.4-6.5) 03/24/22 06:05 Lymph # (Auto) 1.62 K/uL (1.2-3.4) 03/24/22 06:05 Griggs # (Auto) 0.65 K/uL (0.24-0.82) 03/24/22 06:05 Eos # (Auto) 0.29 K/uL (0-0.50) 03/24/22 06:05 Baso # (Auto) 0.04 K/uL (0-0.2) 03/24/22 06:05 Immature Gran # (Auto) 0.03 K/uL (0.00-0.02) H 03/24/22 06:05 PT 13.1 Seconds (9.0-12.0) H 03/21/22 07:25 INR 1.2 (0.9-1.1) H 03/21/22 07:25 APTT 33.7 Seconds (21.0-31.0) H 03/20/22 15:41 PTT Ratio 1.2 03/20/22 15:41 Sodium 135 mmol/L (136-145) L 03/23/22 06:14 Potassium 3.8 mmol/L (3.5-5.1) 03/23/22 06:14 Chloride 105 mmol/L (98-107) 03/23/22 06:14 Carbon Dioxide 22 mmol/L (21-32) 03/23/22 06:14 Anion Gap 8 (3-11) 03/23/22 06:14 BUN 6 mg/dl (6-23) 03/23/22 06:14 Creatinine 0.32 mg/dl (0.6-1.2) L 03/24/22 06:05 Est Cr Clr Drug Dosing 173.8 ml/min 03/24/22 06:05 Est GFR ( Amer) 133.5 ml/min 03/24/22 06:05 Est GFR (Non-Af Amer) 115.2 ml/min 03/24/22 06:05 BUN/Creatinine Ratio 19.4 (10-20) 03/23/22 06:14 Glucose 86 mg/dl (70-99(Fasting)) 03/23/22 06:14 POC Glucose 123 mg/dl (70-99) H 03/24/22 08:00 Estimat Average Glucose 114 mg/dl 03/20/22 18:44 Hemoglobin A1c 5.6 % (4.5-5.6) 03/20/22 18:44 Lactate 1.6 mmol/L (0.4-2.0) 03/20/22 16:37 Calcium 8.0 mg/dl (8.5-10.1) L 03/23/22 06:14 Phosphorus 3.0 mg/dl (2.5-4.9) 03/23/22 06:14 Magnesium 1.7 mg/dl (1.7-2.4) 03/23/22 06:14 Total Bilirubin 0.4 mg/dl (0.2-1.0) 03/23/22 06:14 AST 19 U/L (13-39) 03/23/22 06:14 ALT 8 U/L (7-52) 03/23/22 06:14 Alkaline Phosphatase 67 U/L (34-104) 03/23/22 06:14 Troponin I High Sens 20.5 pg/ml (0-14) H 03/22/22 12:47 C-Reactive Protein 5.22 mg/dl (0-0.5) H 03/21/22 07:25 Total Protein 5.7 gm/dl (6.0-8.3) L 03/23/22 06:14 Albumin 2.6 gm/dl (3.4-5.0) L 03/23/22 06:14 Globulin 3.1 gm/dl (2.5-4.0) 03/23/22 06:14 Albumin/Globulin Ratio 0.8 (0.9-2) L 03/23/22 06:14 Triglycerides 91 mg/dl (0-150) 03/20/22 18:44 Cholesterol 97 mg/dl (0-200) 03/20/22 18:44 LDL Cholesterol, Calc 52 mg/dl 03/20/22 18:44 VLDL Cholesterol, Calc 18 mg/dl (0-30) 03/20/22 18:44 HDL Cholesterol 27 mg/dl 03/20/22 18:44 Cholesterol/HDL Ratio 3.6 (0-5) 03/20/22 18:44 Lipase 19 U/L (11-82) 03/20/22 15:41 Procalcitonin 0.11 ng/ml (0-0.5) 03/20/22 15:41 Urine Color Dark Yellow 03/23/22 19:48 Urine Appearance Turbid (Clear) A 03/23/22 19:48 Urine pH 5.0 (4.5-7.5) 03/23/22 19:48 Ur Specific Uriah 1.018 (1.000-1.030) 03/23/22 19:48 Urine Protein 1+ (Negative) H 03/23/22 19:48 Urine Glucose (UA) Negative (Negative) 03/23/22 19:48 Urine Ketones Trace (Negative) H 03/23/22 19:48 Urine Blood 3+ (Negative) H 03/23/22 19:48 Urine Nitrite Negative (Negative) 03/23/22 19:48 Urine Bilirubin Negative (Negative) 03/23/22 19:48 Urine Urobilinogen Negative (Negative) 03/23/22 19:48 Ur Leukocyte Esterase 3+ (Negative) H 03/23/22 19:48 Urine WBC (Auto) >30 /hpf (0-5) H 03/23/22 19:48 Urine RBC (Auto) >30 /hpf (0-4) H 03/23/22 19:48 U Hyaline Cast (Auto) 1-5 /lpf (0-5) 03/23/22 19:48 U Epithel Cells (Auto) >30 /lpf (0-5) H 03/23/22 19:48 Urine Bacteria (Auto) Negative (Negative) 03/23/22 19:48 Triple Phos Crystals Present (None Prsent) A 03/20/22 16:54 Urine Yeast Not Reportable 03/23/22 19:48 Random Vancomycin 23.3 mcg/ml (10-20) H 03/23/22 06:14 SARS-CoV-2, RNA, NAAT NEGATIVE (NEGATIVE) 03/20/22 Unknown Staphylococcus sp PCR DETECTED (NotDetected) A 03/20/22 15:58 mecA/C-Methicil Resis Gene DETECTED (NotDetected) A 03/20/22 15:58 Staph epidermidis (PCR) DETECTED (NotDetected) A 03/20/22 15:58 Bld Cult ID Panel PCR See PCR Comment (NotDetected) 03/20/22 15:58 Impressions Chest X-Ray 03/20/22 15:41 XR chest 1V portable HISTORY: Atypical Chest pain, nonspecific COMPARISON: None. FINDINGS: The lungs are clear. Cardiac silhouette is normal in size. No pleural effusions. No pneumothorax. Degenerative changes noted within the shoulders. IMPRESSION: No acute process. ACT 112: Negative or not required by law. Electronically signed by: Carlos Benoit M.D. 03/20/2022 4:15 PM Medications Administered Current Inpatient Medications Acetaminophen (Acetaminophen 325 Mg Tab) 650 mg PO Q4H PRN PRN Reason: Pain or Fever Stop: 04/19/22 17:32 Last Admin: 03/23/22 23:49 Dose: 650 mg Apixaban (Apixaban 5 Mg Tablet) 5 mg PO BID [facility] Stop: 04/19/22 20:59 Last Admin: 03/24/22 09:03 Dose: 5 mg Ascorbic Acid (Ascorbic [facility] 500 Mg Tab) [facility]: 04/20/22 08:59 Last Admin: 03/24/22 09:03 Dose: 500 mg Bisacodyl (Bisacodyl 5 Mg Tabec) 5 mg PO BID PRN PRN Reason: Constipation Stop: 04/19/22 18:03 Cyanocobalamin (Cyanocobalamin (B-12) 500 Mcg Tablet) 500 mcg PO [facility] Stop: 04/20/22 08:59 Last Admin: 03/24/22 09:03 Dose: 500 mcg Dextrose (Dextrose 50% 50 Ml Syringe) 25 - 50 ml IV UD PRN; Protocol PRN Reason: Hypoglycemia Protocol Stop: 04/19/22 18:11 Diltiazem HCl (Diltiazem Hcl 180 Mg Capcr) 180 mg PO [facility] Stop: 04/20/22 08:59 Last Admin: 03/24/22 09:03 Dose: 180 mg Duloxetine HCl (Duloxetine Hcl 60 Mg Cap) 60 mg PO [facility] Stop: 04/20/22 08:59 Last Admin: 03/24/22 09:03 Dose: 60 mg Gabapentin (Gabapentin 100 Mg Cap) 200 mg PO [facility] Stop: 04/20/22 08:59 Last Admin: 03/24/22 09:03 Dose: 200 mg Glucagon (Glucagon For Inj 1 Mg Vial) 1 mg SQ UD PRN; Protocol PRN Reason: Hypoglycemia Protocol Stop: 04/19/22 18:11 Glucose (Glucose 40% Gel 15 Gm Tube) 15 - 30 gm PO UD PRN; Protocol PRN Reason: Hypoglycemia Protocol Stop: 04/19/22 18:11 Glucose (Glucose 10 Tab/Tube) 4 - 8 tab PO UD PRN; Protocol PRN Reason: Hypoglycemia Treatment Stop: 04/19/22 18:11 Ceftriaxone Sodium 2,000 mg/ (Dextrose) 70 mls @ 100 mls/hr IV Q24H TIERA; Prot ocol Stop: 03/31/22 08:59 Last Infusion: 03/24/22 09:51 Dose: Infused Insulin Aspart (Insulin Aspart Per Unit) 0 units SC ACHS [facility] Stop: 04/19/22 20:59 Last Admin: 03/24/22 09:01 Dose: 3 units Insulin Glargine (Lantus Per Unit Charge) 0 units SQ HS [facility]; Protocol Stop: 04/21/22 16:29 Last Admin: 03/23/22 21:04 Dose: 10 units Lisinopril (Lisinopril 10 Mg Tab) 10 mg PO QAM [facility] Stop: 04/23/22 08:59 Last Admin: 03/24/22 09:03 Dose: 10 mg Miconazole Nitrate (Miconazole Nitrate Powder 43 Gm) 1 appln EXT PRN PRN PRN Reason: Affected Skin Folds Stop: 04/05/22 10:16 Last Admin: 03/24/22 10:28 Dose: 1 appln Miscellaneous (Carbohydrates For Hypoglycemia ) 15 - 30 gm PO UD PRN PRN Reason: Hypoglycemia Protocol Stop: 04/19/22 18:11 Miscellaneous Information (Pharmacy Glycemic Mgmt Consult) 1 each N/A UD PRN PRN Reason: Consult Stop: 04/19/22 18:11 Nitroglycerin (Nitroglycerin Sl 0.4 Mg/Tab Tab) 0.4 mg SL UD PRN PRN Reason: Chest Pain Stop: 04/19/22 17:32 Last Admin: 03/22/22 10:10 Dose: 0.4 mg Polyethylene Glycol (Polyethylene (Miralax) 17 Gm Pack) 17 gm PO DAILY PRN PRN Reason: Constipation Stop: 04/19/22 17:32 Last Admin: 03/21/22 09:21 Dose: 17 gm Pravastatin Sodium (Pravastatin Sod 40 Mg Tab) 40 mg PO DAILY@1700 [facility] Stop: 04/19/22 18:09 Last Admin: 03/23/22 17:32 Dose: 40 mg Sotalol HCl (Sotalol Hcl 80 Mg Tab) 80 mg PO BID [facility] Stop: 04/22/22 20:59 Last Admin: 03/24/22 09:03 Dose: 80 mg Trazodone HCl (Trazodone Hcl 50 Mg Tab) 75 mg PO HS [facility] Stop: 04/19/22 20:59 Last Admin: 03/23/22 21:04 Dose: 75 mg Vitamin D (Cholecalciferol 1,000 Units 25 Mcg Tab) [facility] Stop: 04/20/22 08:59 Last Admin: 03/24/22 09:03 Dose: 1,000 units
[2022-03-24 13:14] VITALS: PULSE 61
[2022-03-24] MEDS ORDERED: LANTUS PER UNIT CHARGE SQ SCH (21:00)
--- NOTE | 2022-03-25 10:52 | Discharge Summary ---
Date of Service March 25, 2022 Admission HPI Per Admitting Provider The patient is a 66 year old woman with pmh h/o CVA with right hemiplegia, DM2, HTN, MDD/anxiety, afib on eliquis, HLD, neurogenic bladder with chronic indwelling lovelace catheter presented from [facility] with report of chest pain 1 day prior to admission and generalized fatigue. Patient reports generalized weakness and malaise for the past 3 days mostly but has not felt well since COVID19 diagnosis several weeks ago. She denies any chest pain at this time. Reported pressure like chest pain for about 1 hour the day prior to admission but has resolved and not recurred since then. Denied shortness of breath, n/v/d, abdominal pain, LOC, change in cough, fever or chills. Reports right sided weakness is unchanged from baseline. She reports a decreased appetite for the past 3 days as well. Feels like she has had a UTI but "no one did anything about it." She denies any other complaints. In the ED, vitals were significant for BP 90-100s/70s, HR 80s, afebrile, SpO2 91-94% on RA. Labs were significant for WBC 11.7, PLT 411, Na 128, trop 56-->55, UA with >30 WBC, 3+ LE, bacteria. CXR was unremarkable, ECG without ischemic changes, NSR. She was given IVF with NS and ceftriaxone and admitted to medicine.' Admission Exam Per Admitting Provider GENERAL: alert and oriented in no acute distress on stretcher Head: normocephalic and atraumatic EYES: No injection, discharge or icterus. NECK: Trachea midline. ENT: Mucous membranes pink and moist. LUNGS: Airway patent. No retractions. Breath sounds clear with good air entry bilaterally. HEART: Regular rate and rhythm. No chest wall tenderness ABDOMEN: Soft and mildly tender throughout, without guarding or rebound. SKIN: Acyanotic, warm, dry, without rashes EXTREMITIES: Without swelling, tenderness or deformity NEUROLOGICAL: Right-sided hemiplegia. Movement of the left foot and arm noted Arm>leg/foot on left. No significant aphasia or dysarthria. Patient at times takes an extra moment or 2 to formulate words. She states this is her baseline. has light squeez on right hand 1/5 Principal Diagnosis UTI Discharge Exam GENERAL: alert and oriented in no acute distress Head: normocephalic and atraumatic EYES: No injection, discharge or icterus. NECK: Trachea midline. ENT: Mucous membranes pink and moist. LUNGS: Airway patent. No retractions. Breath sounds clear with good air entry bilaterally. HEART: Regular rate and rhythm. No chest wall tenderness ABDOMEN: Soft, nontender, without guarding or rebound. SKIN: Acyanotic, warm, dry, without rashes EXTREMITIES: Without swelling, tenderness or deformity NEUROLOGICAL: Right-sided hemiplegia. Movement of the left foot and arm noted Arm>leg/foot on left. No significant aphasia or dysarthria. Patient at times takes an extra moment or 2 to formulate words. She states this is her baseline. has light squeez on right hand / Discharge Data Allergies Allergy/AdvReac Type Severity Reaction Status Date / Time adhesive tape Allergy Unknown Unknown Verified 03/20/22 18:15 aspirin Allergy Unknown Unknown Verified 03/20/22 18:15 atorvastatin Allergy Unknown Unknown Verified 03/20/22 18:15 citalopram [From Celexa] Allergy Unknown Unknown Verified 03/20/22 18:15 Iodinated Contrast Media Allergy Unknown Unknown Verified 03/20/22 18:15 iodine Allergy Unknown Unknown Verified 03/20/22 18:15 latex Allergy Unknown Unknown Verified 03/20/22 18:15 sertraline [From Zoloft] Allergy Unknown Unknown Verified 03/20/22 18:15 Sulfa (Sulfonamide Allergy Unknown Unknown Verified 03/20/22 18:15 Antibiotics) ekg leads Allergy Unknown Unknown Uncoded 03/20/22 18:15 Consultations 03/20/22 17:33 ED Decision to Admit Stat 03/22/22 09:56 Consult Cardiology Routine Hospital Course (1) Acute UTI: - presenting with malaise, fatigue, decreased appetite - UA positive for infection - in the setting of chronic indwelling lovelace catheter and presenting symptoms with positive UA will treat for UTI - continue ceftriaxone - repeat urine culture negative but this was after abx - discharge 03/24/2022 with 5 days of ciprofloxacin (2) Chest pain: - complained of pressure like chest pain 03/22/2022 - ECG and trop unremarkable - given recurrent episode and pressure like pain, cardiology consulted - recommend conservative management for now - continue sotalol - continue Eliquis - no more complaints of chest pain (3) Hyponatremia: - likely in the setting of decreased po intake - given NS in ED - BP stable, respiratory status stable - continue gentle IVF - monitor Na on BMP daily - improved (4) Paroxysmal atrial fibrillation: - in NSR on admission ECG - rate controlled on ?diltiazem, sotalol, metoprolol? on med list from [place] - will continue diltiazem, discontinue metorpolol - continue sotalol per Cardiology for rhythm control - discontinued metoprolol on discharge - monitor on telemetry - continue eliquis (5) DM2 (diabetes mellitus, type 2): - A1c 5.6% 02/2022 - on lantus 40units qhs at [place] - started on lantus - pharmacy glycemic consult following - SSI for now - FSG AC+HS - diabetic diet (6) H/O: CVA (cerebrovascular accident): - right sided hemiplegia with very minimal functioning on right - appears to be at baseline - continue statin and Eliquis (7) HTN (hypertension): - patient BP a little low on presentation possibly in the setting of hypovolemia from decrease po - IVF as above - home meds from [place] are lisinopril 10mg daily, diltiazem 180mg daily, [id number] BID, Lopressor 25mg BID - continue diltiazem and sotalol - dc metoprolol - restart lisinopril today - monitor (8) HLD (hyperlipidemia): - continue statin (9) Depression with anxiety: - continue home meds (10) Neurogenic bladder: - change lovelace on admission - continue for now - abx as above Plan DVT ppx: Eliquis Code Status: Full Code Dispo: telemetry - pending transport back to [facility] Chris Montgomery MD Hospital Medicine Total Time Total Time Spent Total Time Spent (In Minutes): 25 Total Time Includes: Examination of the Patient, Discharge Planning, Medication Reconciliation and Communication With Other Providers Discharge Plan Discharge Items Patient Disposition: Transfer Group Home Fac Reason For Visit: HYPONATREMIA, CHEST PAIN Discharge Diagnosis: UTI Activity: Resume your previous activity Non-emergency contact: Primary Care Provider Call non-emergency contact if: you have any medication questions and your symptoms worsen Follow-up/Referrals: [facility] [Primary Care Provider] - Diet: Carb Consistent or DM2, Heart Healthy and Vegetarian (Lacto-Ovo) Diet Texture: Easy to Chew Addtl Attending Provider Instructions: You were admitted for chest pain, found to have a UTI. You heart was investigated and there was no issue. Cardiology saw you and discontinued metoprolol and continued sotalol and diltiazem. You were started on antibiotics for the UTI and had improvement. You were ok for discharge back to [facility] and should finish 5 days more of abx. Please follow up with your primary care doctor on discharge. Pending Studies at Discharge: Yes Studies:: repeat urine culture Stand-Alone Forms: [facility] Skilled Items Patient informed of condition?: Yes DNR: No Discharge Level of Care: Other Communicable Disease: No Discharge Prognosis: Stable Lines: None Urinary Catheter: Yes Medications and DC Order Prescriptions: New ciprofloxacin HCl 500 mg tablet 500 mg PO BID Qty: 10 0RF Continued zinc acetate 50 mg (zinc) Capsule 50 mg PO DAILY Rx Instructions: take for 14 days end date 03/24/22 ascorbic acid (vitamin C) [Vitamin C] 500 mg Tablet 500 mg PO DAILY Rx Instructions: take for 14 days end date 03/24/22 cholecalciferol (vitamin D3) [Vitamin D3] 125 mcg (5,000 unit) Tablet 125 mcg PO DAILY Rx Instructions: take for 14 days end date 03/24/22 furosemide 40 mg tablet 40 mg PO DAILY gabapentin 100 mg capsule 200 mg PO DAILY Januvia 100 mg tablet 100 mg PO DAILY Eliquis 5 mg tablet 5 mg PO BID pravastatin 40 mg tablet 40 mg PO DAILY sotalol 80 mg tablet 80 mg PO . BID( ON HOLD ) trazodone 150 mg tablet 75 mg PO HS Rx Instructions: 1/2 tablet dose lisinopril 10 mg tablet 10 mg PO DAILY diltiazem HCl 180 mg capsule,extended release 24hr 180 mg PO DAILY duloxetine 60 mg capsule,delayed release(DR/EC) 60 mg PO DAILY cholecalciferol (vitamin D3) 25 mcg (1,000 unit) Tablet 25 mcg PO . DAILY (ON HOLD) acetaminophen 325 mg Tablet 650 mg PO Q6 MDD 3 PRN (Reason: temp>101) acetaminophen 325 mg Tablet 650 mg PO Q6 MDD 3 PRN (Reason: Pain) Changed insulin glargine [Lantus Solostar U-100 Insulin] 100 unit/mL (3 mL) insulin pen 15 unit SUBCUT HS Qty: 15 0RF Discontinued polyethylene glycol 3350 [Miralax] 17 gram/dose Powder 17 g PO DAILY metoprolol tartrate 25 mg tablet 25 mg PO . BID (ON HOLD) Discharge Orders: Discharge Order (Routine); Ordered 03/24/22 Ordered By: Chris Montgomery Admission Data Admit Date/Time: 03/20/22 17:33 Attending Provider: Chris Montgomery Admit Provider: Chris Montgomery Primary Care Provider: [facility] Other Providers: Chris Montgomery ; Shabbir Sierra Other Interventions: Discharge Summary Assessment (RN) Last Done: 03/24/22 13:10
== END 2022-03-24 13:55 | DRG 699 ==
LOC: ED 15:21 → EDINP 17:33 → 2N 20:05

== ENCOUNTER 2022-05-18 16:38 | Inpatient (IN) ==
[~2022-05-18 16:38] MED LIST: ETOMIDATE 2 MG/ML 20 ML VIAL IV ONE; ROCURONIUM BROMIDE 10 MG/ML 5 ML VIAL IV ONE
[2022-05-18] MEDS ORDERED: SODIUM CHLORIDE 0.9% 250 ML IV PRN (17:02)
[2022-05-18] MEDS ORDERED: PIPERACILLIN/TAZOBACTAM 4.5 GM/120 ML BAG IV ONE (17:09)
[2022-05-18] MEDS: SODIUM CHLORIDE 0.9% 1000ML 1,000 ML IV SCH ×2 (17:15→18:25)
[2022-05-18 17:31] LABS: Alanine Aminotransferase 8 U/L (7-52); Albumin Level 2.3 gm/dl (3.4-5.0); Alkaline Phosphatase 86 U/L (34-104); Anion Gap 19 (3-11); Aspartate Aminotransferase 16 U/L (13-39); BUN Creatinine Ratio 20.9 (10-20); Bilirubin Direct 0.4 mg/dl (0-0.2); Bilirubin,Total 0.9 mg/dl (0.2-1.0); Blood Urea Nitrogen 85 mg/dl (6-23); Calcium 7.3 mg/dl (8.5-10.1); Carbon Dioxide 15 mmol/L (21-32); Chloride 93 mmol/L (98-107); Est GFR (African American) 12.3 ml/min; Est GFR (Non-African American) 10.6 ml/min; Glucose 188 mg/dl (70-99(Fasting)); Lipase 5 U/L (11-82); Magnesium 1.5 mg/dl (1.7-2.4); Potassium 4.9 mmol/L (3.5-5.1); Sodium 127 mmol/L (136-145); Total Protein 5.3 gm/dl (6.0-8.3)
[2022-05-18 17:33] LABS: HCO3 VBG 16 mmol/L; Oxygen Saturation VBG < 60.0 %; PCO2 VBG 41 mmHg (38-50); PO2 VBG 26 mmHg; pH VBG 7.21 (7.36-7.41)
[2022-05-18 17:39] LABS: Troponin I High Sensitivity 28.5 pg/ml (0-14)
--- NOTE | 2022-05-18 17:39 | Emergency Department Note ---
Impression & Plan Septic shock, GI bleed, Hyponatremia, Acute respiratory failure with hypoxia, Acute renal failure, High anion gap metabolic acidosis ED Provider Note NAME: KADI WORTHINGTON AGE: 66 SEX: F ARRIVES VIA: Ambulance INFORMANT: Patient ED PROVIDER(S): Jimbo Silver MD CHIEF COMPLAINT: AMS, diarrhea PLAN: Disposition: Admit MEDICAL DECISION MAKING: The patient is a 66-year-old woman with a past medical of CVA with residual right-sided hemiplegia, type 2 diabetes, hypertension, depression/anxiety, A-fib on Eliquis, hyperlipidemia, neurogenic bladder with chronic indwelling Milan catheter who presents emergency department from her [facility] facility at [facility] for altered mental status and ongoing diarrhea over the past 24 hours. Per EMS the patient's blood pressure was in the 90s/70s prior to arrival. It was also reported that the patient was suspected to have an ileus. The patient is full code. On evaluation the patient is chronically ill-appearing and noted to be hypotensive in the 50s/30s. She is alert to voice, opens eyes, and will say her name upon request. Heart rate is in the 80s. She is afebrile. Patient appears clinically dry. She was noted to have gross bloody stool in her brief which was sent for testing. The patient's urinary catheter demonstrates encrusted debris throughout the tube with foul smelling dark urine. Milan catheter was replaced per nursing. I did perform a limited bedside cardiac ultrasound that demonstrated 100% IVC respiratory variability. EF appears grossly normal. No overt right heart strain. No overt pericardial effusion. Sepsis protocols were initiated including >30 cc/kg of IV fluids. Empiric Zosyn ordered given the patient's critical illness. Type and cross with 2 units of PRBCs to hold also ordered. I-STAT chemistry was obtained and demonstrated sodium of 126 which is suspected to be related to hypovolemia given her exam and additional lab results with a H/H of 15/44, creatinine of 4.5 with BUN of 73. Potassium 4.8. Bicarbonate is 16 without anion gap elevation consistent with the patient's diarrheal illness. EKG without overt acute ischemia. WBC 32.5K with neutrophil predominance and left shift. H/H is 14/41, similar to prior and suspected to reflect component of hemoconcentration given patient's clinical dry appearance and acute renal failure. Serum chemistry confirms i- STAT with acute renal failure with creatinine of 4 with BUN of 85 with elevated anion gap of 19 and bicarb of 15. VBG with pH of 7.21 and PCO2 of 41. Sodium corrects to 128-129 with glucose 188. Initial lactic acid 3.1. Magnesium 1.5 with repletion initiated. LFTs without significant abnormality. High- sensitivity troponin 20.5, nonspecific in the setting of the patient's renal failure. Lipase is not elevated. Procalcitonin is elevated at 2.5, consistent with suspected sepsis. Respiratory viral panel/BioFire was negative. Following administration of 30 cc/kg IV fluids/normal saline patient remained hypotensive and so Levophed was initiated. Additional IV fluids administered for a total of 3700 cc of NSS with persistent of hypotension as Levophed uptitrated. Repeat evaluation of IVC still with 100% respiratory variability and so additional liter of lactated Ringer's initiated. IV vancomycin also ordered to broaden antibiotic coverage in the setting of severe sepsis. CT of the head negative for acute abnormalities. Microvascular ischemic disease is seen as it is ill-defined hypodense foci within the left frontal lobe likely representing age-indeterminate lacunar infarcts. CT of the chest and abdomen pelvis also obtained and demonstrates nonspecific proctocolitis extending from the mid transverse colon distally. Trace free pelvic fluid is seen. Small to moderate right pleural effusion with mild right basilar atelectasis. Case was discussed with Dr. Gusman, [facility] hospitalist, who will evaluate the patient for admission. Case also discussed with Dr. Del Cid [facility] ICU salesperson sewing machines and Jason Green [facility] ICU PEELER OPERATOR. Appreciate assistance. While the patient is still alert to voice and speaking when asked we agreed to proceed with intubation for airway protection given the patient's critical illness with ongoing hypotension and anticipated need for further fluid replacement vasopressors. Verbal consent obtained from the patient. Intubation was pe rformed per procedure note without complications. Further management per ICU and admitting team. Triage Nursing notes reviewed and agree them. Prior/outside medical records reviewed Vital Signs: reviewed Differential diagnosis: Sepsis, UTI, pneumonia, metabolic, electrolyte abnormalities, cardiac sources, intracerebral event, toxicologic, neurologic, as well as other pathologies. ER treatment provided: See below. Diagnostics interpreted by me: ECG: Sinus rhythm with first-degree AV block, 79 bpm, no ectopy, no overt ST elevation or depression, QTc 552, QRS 98. Cardiac Monitoring: An order for continuous cardiac monitoring was placed and demonstrated Sinus rhythm with first-degree AV block, 79 bpm, no ectopy. Laboratory studies: See below Imaging studies: See below Consultation(s): Case was discussed with Dr. Dee, [facility] hospitalist, who will evaluate the patient for admission. Jason Green [facility] PEELER OPERATOR and Dr. Del Cid [facility] ICU salesperson sewing machines. HPI: The patient is a 66-year-old woman with a past medical of CVA with residual right-sided hemiplegia, type 2 diabetes, hypertension, depression/anxiety, A-fib on Eliquis, hyperlipidemia, neurogenic bladder with chronic indwelling Milan catheter who presents emergency department from her [facility] facility at [facility] for altered mental status and ongoing diarrhea over the past 24 hours. Per EMS the patient's blood pressure was in the 90s/70s prior to arrival. It was also reported that the patient was suspected to have an ileus. The patient is full code. ROS: See above HPI for pertinent positives & negatives. A total of 10 systems reviewed and were otherwise negative. VITALS:See Below PHYSICAL EXAMINATION: GENERAL: Awake and alert to loud voice will say name on request. Critically ill-appearing. BMI 36.7. HENT: Normocephalic, atraumatic. Oropharynx with dry-cracked mucous membranes. EYES: Normal conjunctiva. Sclera non-icteric. NECK: Supple. No nuchal rigidity. FROM. No JVD. RESPIRATORY: Diminished BS of right base, otherwise, clear to auscultation. CARDIAC: Regular rate, normal rhythm. Extremities warm and well perfused. Pulses equal. ABDOMEN: Soft, non-distended. No tenderness to palpation. No rebound or guarding. No masses. RECTAL/: Grossly bloody stool in brief. Milan catheter pleasant with encrusted debris throughout tubing with foul-smelling dark urine. MUSCULOSKELETAL: Chest examination reveals no tenderness. The back is s ymmetrical on inspection without obvious abnormality. There is no CVA tenderness to palpation. No joint edema. LOWER EXTREMITIES: Calves are equal size bilaterally and non-tender. No edema. No discoloration. NEURO: Awake and alert to loud voice, opens eyes, and will say her name upon request. SKIN: Cool and clammy. Mild mottling. No jaundice noted. ED COURSE: Procedures: Endotracheal Intubation Indication airway protection. The patient was on 100% oxygen via NRB prior to the procedure. Suction, airway equipment, RSI drugs, respiratory equipment, and appropriate personnel were prepared prior to the initiation of the procedure. A time out was taken. Induction was performed with etomidate and paralysis with rocuronium. After observing the clinical benefit of the medications, the airway was easily visualized utilizing a GlideScope Mac 3 . A 7.5 size ETT tube was placed atraumatically to 21 cm using standard technique. The cuff inflated without signs of malfunction. There were bilateral breath sounds, positive colormetric change, no gastric sounds, a good capnography waveform, and post procedure pulse oximetry was 95%%. Post intubation sedation was administered using Versed. There were no complications. Critical Care: I have personally spent greater than 95 minutes of critical care time in the direct management of this patient. This includes bedside care, interpretation of diagnostic studies, and testing, discussion with consultants, patient, and family members, and other required patient management activities. This 95 minutes is in excess of all separately billable procedures. Jimbo Silver MD Past Med/Surg History Medical History Acute UTI Depression with anxiety DM2 (diabetes mellitus, type 2) H/O: CVA (cerebrovascular accident) HLD (hyperlipidemia) HTN (hypertension) Neurogenic bladder Paroxysmal atrial fibrillation Surgical History H/O: hysterectomy Family History Other Heart disease Social History Smoking Status: Unknown if ever smoked Second Hand Exposure: No; Hx Alcohol Use: No Hx Substance Use: No Preferred Language: Israeli Communication Ability: Effective Beliefs That Will Affect Care: None Current Living Situation: Residential Feels Safe at Home: Yes Assistive Devices: Hospital Bed and Wheelchair Allergies Allergies Allergy/AdvReac Type Severity Reaction Status Date / Time adhesive tape Allergy Unknown Unknown Verified 05/18/22 18:23 aspirin Allergy Unknown Unknown Verified 02/18/23 18:23 atorvastatin Allergy Unknown Unknown Verified 05/18/22 18:23 citalopram [From Celexa] Allergy Unknown Unknown Verified 05/18/22 18:23 Iodinated Contrast Media Allergy Unknown Unknown Verified 05/18/22 18:23 iodine Allergy Unknown Unknown Verified 05/18/22 18:23 latex Allergy Unknown Unknown Verified 05/18/22 18:23 sertraline [From Zoloft] Allergy Unknown Unknown Verified 05/18/22 18:23 Sulfa (Sulfonamide Allergy Unknown Unknown Verified 05/18/22 18:23 Antibiotics) ekg leads Allergy Unknown Unknown Uncoded 05/18/22 18:23 Home Meds Home Medications Medication Instructions Recorded Confirmed acetaminophen 325 mg tablet 650 mg PO Q6 PRN Pain 03/20/22 05/18/22 acetaminophen 325 mg tablet 650 mg PO Q6 PRN temp>101 03/20/22 05/18/22 apixaban 5 mg tablet (Eliquis) 5 mg PO BID 03/20/22 05/18/22 cholecalciferol (vitamin D3) 125 125 mcg PO DAILY 03/20/22 05/18/22 mcg (5,000 unit) tablet (Vitamin D3) diltiazem HCl 180 mg 180 mg PO DAILY 03/20/22 05/18/22 capsule,extended release 24 hr furosemide 40 mg tablet 40 mg PO DAILY 03/20/22 05/18/22 gabapentin 100 mg capsule 200 mg PO DAILY 03/20/22 05/18/22 lisinopril 10 mg tablet 10 mg PO DAILY 03/20/22 05/18/22 pravastatin 40 mg tablet 40 mg PO DAILY 03/20/22 05/18/22 sitagliptin phosphate 100 mg 100 mg PO DAILY 03/20/22 05/18/22 tablet (Januvia) sotalol 80 mg tablet 80 mg PO BID 03/20/22 05/18/22 trazodone 150 mg tablet 75 mg PO HS 03/20/22 05/18/22 Boost Glucose Control 8 oz PO . AT BREAKFAST 05/18/22 05/18/22 cyanocobalamin (vitamin B-12) 500 500 mcg PO Q OTHER DAY 05/18/22 05/18/22 mcg tablet (Vitamin B-12) duloxetine 60 mg capsule,delayed 60 mg PO DAILY 05/18/22 05/18/22 release (Cymbalta) tramadol 50 mg tablet 50 mg PO Q8H PRN pain level 6-10 05/18/22 05/18/22 Previous Rx's Medication Instructions Recorded insulin glargine 100 unit/mL (3 15 unit (0.15 mL) subcut HS #15 mL 03/24/ mL) subcutaneous pen (Lantus Solostar U-100 Insulin) Results & Data (ED) Vital Signs Vital Signs - 24 hr 05/18/22 16:58 05/18/22 16:30 05/18/22 17:03 Temperature 36.6 C Temperature Source Axillary Pulse Rate 69 76 76 Pulse Rate [Finger] Pulse Rate from SpO2 Sensor Respiratory Rate 8 L 10 L Respiratory Effort / Characteristics Gasping/Agonal Blood Pressure 58/39 L Blood Pressure [Left Arm] Blood Pressure Mean 45 Blood Pressure Mean [Left Arm] Blood Pressure Position Lying Blood Pressure Position [Left Arm] Pulse Oximetry 97 97 Oxygen Delivery Method Nasal Cannula Nasal Cannula Oxygen Flow Rate 2 2 Sepsis Recent Fever Within 48 Hours No Sepsis New/Unexplained Change in Mental Status Yes Sepsis Action Taken by Nursing Physician Notified 05/18/22 17:07 05/18/22 17:07 05/18/22 17:02 Temperature Temperature Source Pulse Rate 70 Pulse Rate [Finger] Pulse Rate from SpO2 Sensor Respiratory Rate 20 Respiratory Effort / Characteristics Blood Pressure 60/40 L 58/39 L Blood Pressure [Left Arm] Blood Pressure Mean 46 45 Blood Pressure Mean [Left Arm] Blood Pressure Position Blood Pressure Position [Left Arm] Pulse Oximetry 98 97 Oxygen Delivery Method Nasal Cannula Nasal Cannula Oxygen Flow Rate 2 2 Sepsis Recent Fever Within 48 Hours Sepsis New/Unexplained Change in Mental Status Sepsis Action Taken by Nursing 05/18/22 17:09 05/18/22 17:29 05/18/22 17:37 Temperature 36 C L 36 C L Temperature Source Rectal Pulse Rate 70 Pulse Rate [Finger] Pulse Rate from SpO2 Sensor 71 Respiratory Rate 18 Respiratory Effort / Characteristics Blood Pressure Blood Pressure [Left Arm] Blood Pressure Mean Blood Pressure Mean [Left Arm] Blood Pressure Position Blood Pressure Position [Left Arm] Pulse Oximetry 97 97 Oxygen Delivery Method Nasal Cannula Oxygen Flow Rate 2 Sepsis Recent Fever Within 48 Hours Sepsis New/Unexplained Change in Mental Status Sepsis Action Taken by Nursing 05/18/22 17:46 05/18/22 17:35 05/18/22 17:41 Temperature 36.0 C L Temperature Source Rectal Pulse Rate 70 72 Pulse Rate [Finger] 71 Pulse Rate from SpO2 Sensor 71 72 Respiratory Rate 34 H 18 19 Respiratory Effort / Characteristics Blood Pressure 61/26 L 62/29 L Blood Pressure [Left Arm] 62/29 L Blood Pressure Mean 37 40 Blood Pressure Mean [Left Arm] 40 Blood Pressure Position Blood Pressure Position [Left Arm] Lying Pulse Oximetry 98 97 98 Oxygen Delivery Method Nasal Cannula Nasal Cannula Nasal Cannula Oxygen Flow Rate 2 2 2 Sepsis Recent Fever Within 48 Hours Sepsis New/Unexplained Change in Mental Status Sepsis Action Taken by Nursing 05/18/22 17:50 05/18/22 17:50 05/18/22 18:00 Temperature Temperature Source Pulse Rate 83 80 Pulse Rate [Finger] Pulse Rate from SpO2 Sensor 83 72 Respiratory Rate 31 H 17 Respiratory Effort / Characteristics Blood Pressure 61/43 L Blood Pressure [Left Arm] Blood Pressure Mean 49 Blood Pressure Mean [Left Arm] Blood Pressure Position Blood Pressure Position [Left Arm] Pulse Oximetry 96 76 L Oxygen Delivery Method Oxygen Flow Rate Sepsis Recent Fever Within 48 Hours Sepsis New/Unexplained Change in Mental Status Sepsis Action Taken by Nursing 05/18/22 18:01 05/18/22 18:01 05/18/22 18:23 Temperature Temperature Source Pulse Rate 81 Pulse Rate [Finger] Pulse Rate from SpO2 Sensor 70 Respiratory Rate 19 Respiratory Effort / Characteristics Blood Pressure 48/35 L Blood Pressure [Left Arm] Blood Pressure Mean 39 35 Blood Pressure Mean [Left Arm] Blood Pressure Position Blood Pressure Position [Left Arm] Pulse Oximetry 96 Oxygen Delivery Method Oxygen Flow Rate Sepsis Recent Fever Within 48 Hours Sepsis New/Unexplained Change in Mental Status Sepsis Action Taken by Nursing 05/18/22 18:23 05/18/22 18:30 05/18/22 18:32 Temperature Temperature Source Pulse Rate 64 75 89 Pulse Rate [Finger] Pulse Rate from SpO2 Sensor 75 89 Respiratory Rate 17 18 17 Respiratory Effort / Characteristics Blood Pressure Blood Pressure [Left Arm] Blood Pressure Mean Blood Pressure Mean [Left Arm] Blood Pressure Position Blood Pressure Position [Left Arm] Pulse Oximetry 100 100 Oxygen Delivery Method Oxygen Flow Rate Sepsis Recent Fever Within 48 Hours Sepsis New/Unexplained Change in Mental Status Sepsis Action Taken by Nursing 05/18/22 18:32 05/18/22 18:49 05/18/22 18:49 Temperature Temperature Source Pulse Rate 89 Pulse Rate [Finger] Pulse Rate from SpO2 Sensor 91 H Respiratory Rate 15 Respiratory Effort / Characteristics Blood Pressure 41/20 L Blood Pressure [Left Arm] Blood Pressure Mean 26 27 Blood Pressure Mean [Left Arm] Blood Pressure Position Blood Pressure Position [Left Arm] Pulse Oximetry 94 Oxygen Delivery Method Oxygen Flow Rate Sepsis Recent Fever Within 48 Hours Sepsis New/Unexplained Change in Mental Status Sepsis Action Taken by Nursing 05/18/22 19:00 05/18/22 19:08 05/18/22 19:08 Temperature Temperature Source Pulse Rate 89 70 Pulse Rate [Finger] Pulse Rate from SpO2 Sensor Respiratory Rate 15 17 Respiratory Effort / Characteristics Blood Pressure 83/43 L Blood Pressure [Left Arm] Blood Pressure Mean 56 Blood Pressure Mean [Left Arm] Blood Pressure Position Blood Pressure Position [Left Arm] Pulse Oximetry Oxygen Delivery Method Oxygen Flow Rate Sepsis Recent Fever Within 48 Hours Sepsis New/Unexplained Change in Mental Status Sepsis Action Taken by Nursing 05/18/22 19:10 05/18/22 19:10 05/18/22 19:12 Temperature Temperature Source Pulse Rate 62 Pulse Rate [Finger] Pulse Rate from SpO2 Sensor Respiratory Rate 18 Respiratory Effort / Characteristics Blood Pressure Blood Pressure [Left Arm] Blood Pressure Mean 55 55 Blood Pressure Mean [Left Arm] Blood Pressure Position Blood Pressure Position [Left Arm] Pulse Oximetry Oxygen Delivery Method Oxygen Flow Rate Sepsis Recent Fever Within 48 Hours Sepsis New/Unexplained Change in Mental Status Sepsis Action Taken by Nursing 05/18/22 19:12 05/18/22 19:18 05/18/22 19:18 Temperature Temperature Source Pulse Rate 72 64 Pulse Rate [Finger] Pulse Rate from SpO2 Sensor 72 65 Respiratory Rate 14 14 Respiratory Effort / Characteristics Blood Pressure 69/42 L Blood Pressure [Left Arm] Blood Pressure Mean 51 Blood Pressure Mean [Left Arm] Blood Pressure Position Blood Pressure Position [Left Arm] Pulse Oximetry 69 L 59 L Oxygen Delivery Method Oxygen Flow Rate Sepsis Recent Fever Within 48 Hours Sepsis New/Unexplained Change in Mental Status Sepsis Action Taken by Nursing Laboratory Data Attestation: I reviewed the patient's lab results. 05/18/22 16:53 05/18/22 16:53 Lab Results 05/18/22 05/18/22 05/18/22 Range/Units 16:53 16:53 16:53 WBC 32.50 H* (4.8-10.8) K/ul RBC 5.29 (4.20-5.40) M/uL Hgb 14.3 (12.0-16.0) g/dl POC Hgb (12.0-16.0) g/dl Hct 41.0 (37.0-47.0) % POC Hct (37-47) % MCV 77.5 L (80.0-100.0) fL MCH 27.0 (25.0-34.0) pg MCHC 34.9 (32.0-36.0) g/dL RDW Std Deviation 39.8 (36.4-46.3) fL RDW Coeff of Nelson 14.4 (11.5-14.5) % Plt Count 499 H (130-400) K/uL MPV 10.6 (9.4-12.4) fL Immature Gran % (Auto) 4.8 % Neut % (Auto) 82.9 % Lymph % (Auto) 4.6 % Atkinson % (Auto) 7.0 % Eos % (Auto) 0.6 % Baso % (Auto) 0.1 % Neut # (Auto) 26.96 H (1.40-6.50) K/uL Lymph # (Auto) 1.49 (1.2-3.4) K/uL Atkinson # (Auto) 2.29 H (0.11-0.59) K/uL Eos # (Auto) 0.18 (0-0.50) K/uL Baso # (Auto) 0.03 (0-0.2) K/uL Immature Gran # (Auto) 1.55 H (0.01-0.20) K/uL Absolute Nucleated RBC 0.02 (0-0.12) K/uL Nucleated RBC % (auto) 0.1 % Toxic Vacuolation 2+ PT 14.6 H (9.0-12.0) Seconds INR 1.4 H (0.9-1.1) APTT 39.4 H (21.0-31.0) Seconds PTT Ratio 1.4 Fibrinogen 360 (184-400) mg/dl VBG pH (7.36-7.41) VBG pCO2 (38-50) mmHg VBG pO2 mmHg VBG HCO3 mmol/L VBG O2 Saturation % VBG Base Excess mEq/L POC Sodium (135-144) mmol/L Sodium 127 L (136-145) mmol/L POC Potassium (3.3-5.0) mmol/L Potassium 4.9 (3.5-5.1) mmol/L POC Chloride (101-112) mmol/L Chloride 93 L (98-107) mmol/L Carbon Dioxide 15 L (21-32) mmol/L POC Total CO2 (24-31) mmol/L Anion Gap 19 H (3-11) POC Anion Gap (16-25) mmol/L POC BUN (7-18) mg/dl BUN 85 H (6-23) mg/dl Creatinine 4.06 H (0.6-1.2) mg/dl POC Creatinine (0.6-1.3) mg/dl Est Cr Clr Drug Dosing Not Reportable Est GFR ( Amer) 12.3 ml/min Est GFR (Non-Af Amer) 10.6 ml/min BUN/Creatinine Ratio 20.9 H (10-20) Glucose 188 H (70-99(Fasting)) mg/dl POC Glucose (other) (70-99) mg/dl Osmolality (280-300) mOsm/kg Lactate (0.4-2.0) mmol/L Calcium 7.3 L (8.5-10.1) mg/dl POC Ioniz Calcium Kiki (1.12-1.32) mmol/l Phosphorus (2.5-4.9) mg/dl Magnesium 1.5 L (1.7-2.4) mg/dl Total Bilirubin 0.9 (0.2-1.0) mg/dl Direct Bilirubin 0.4 H (0-0.2) mg/dl AST 16 (13-39) U/L ALT 8 (7-52) U/L Alkaline Phosphatase 86 (34-104) U/L Troponin I High Sens 28.5 H (0-14) pg/ml Total Protein 5.3 L (6.0-8.3) gm/dl Albumin 2.3 L (3.4-5.0) gm/dl Lipase 5 L (11-82) U/L Procalcitonin (0-0.5) ng/ml Random Cortisol mcg/dl Adenovirus (PCR) (NotDetected) B. pertussis DNA (PCR) (NotDetected) B.parapertussis DNA PCR (NotDetected) C. pneumoniae DNA (PCR) (NotDetected) Coronavirus OC43 (PCR) (NotDetected) Coronavirus HKU1 (PCR) (NotDetected) Coronavirus 229E (PCR) (NotDetected) SARS-CoV-2 (PCR) (NotDetected) Coronavirus NL63 (PCR) (NotDetected) Human Metapneumovir PCR (NotDetected) Influenza Type A (PCR) (NotDetected) Influenza Type B (PCR) (NotDetected) M. pneumoniae (PCR) (NotDetected) Parainfluenza 1 (PCR) (NotDetected) Parainfluenza 2 (PCR) (NotDetected) Parainfluenza 3 (PCR) (NotDetected) Parainfluenza 4 (PCR) (NotDetected) RSV (PCR) (NotDetected) Entero/Rhino (PCR) (NotDetected) Blood Type Blood Type Recheck Antibody Screen Crossmatch 05/18/22 05/18/22 05/18/22 Range/Units 16:53 16:53 16:53 WBC (4.8-10.8) K/ul RBC (4.20-5.40) M/uL Hgb (12.0-16.0) g/dl POC Hgb (12.0-16.0) g/dl Hct (37.0-47.0) % POC Hct (37-47) % MCV (80.0-100.0) fL MCH (25.0-34.0) pg MCHC (32.0-36.0) g/dL RDW Std Deviation (36.4-46.3) fL RDW Coeff of Nelson (11.5-14.5) % Plt Count (130-400) K/uL MPV (9.4-12.4) fL Immature Gran % (Auto) % Neut % (Auto) % Lymph % (Auto) % Atkinson % (Auto) % Eos % (Auto) % Baso % (Auto) % Neut # (Auto) (1.40-6.50) K/uL Lymph # (Auto) (1.2-3.4) K/uL Atkinson # (Auto) (0.11-0.59) K/uL Eos # (Auto) (0-0.50) K/uL Baso # (Auto) (0-0.2) K/uL Immature Gran # (Auto) (0.01-0.20) K/uL Absolute Nucleated RBC (0-0.12) K/uL Nucleated RBC % (auto) % Toxic Vacuolation PT (9.0-12.0) Seconds INR (0.9-1.1) APTT (21.0-31.0) Seconds PTT Ratio Fibrinogen (184-400) mg/dl VBG pH (7.36-7.41) VBG pCO2 (38-50) mmHg VBG pO2 mmHg VBG HCO3 mmol/L VBG O2 Saturation % VBG Base Excess mEq/L POC Sodium (135-144) mmol/L Sodium (136-145) mmol/L POC Potassium (3.3-5.0) mmol/L Potassium (3.5-5.1) mmol/L POC Chloride (101-112) mmol/L Chloride (98-107) mmol/L Carbon Dioxide (21-32) mmol/L POC Total CO2 (24-31) mmol/L Anion Gap (3-11) POC Anion Gap (16-25) mmol/L POC BUN (7-18) mg/dl BUN (6-23) mg/dl Creatinine (0.6-1.2) mg/dl POC Creatinine (0.6-1.3) mg/dl Est Cr Clr Drug Dosing Est GFR ( Amer) ml/min Est GFR (Non-Af Amer) ml/min BUN/Creatinine Ratio (10-20) Glucose (70-99(Fasting)) mg/dl POC Glucose (other) (70-99) mg/dl Osmolality 300 (280-300) mOsm/kg Lactate 3.1 H* (0.4-2.0) mmol/L Calcium (8.5-10.1) mg/dl POC Ioniz Calcium Kiki (1.12-1.32) mmol/l Phosphorus (2.5-4.9) mg/dl Magnesium (1.7-2.4) mg/dl Total Bilirubin (0.2-1.0) mg/dl Direct Bilirubin (0-0.2) mg/dl AST (13-39) U/L ALT (7-52) U/L Alkaline Phosphatase (34-104) U/L Troponin I High Sens (0-14) pg/ml Total Protein (6.0-8.3) gm/dl Albumin (3.4-5.0) gm/dl Lipase (11-82) U/L Procalcitonin 2.55 H (0-0.5) ng/ml Random Cortisol mcg/dl Adenovirus (PCR) (NotDetected) B. pertussis DNA (PCR) (NotDetected) B.parapertussis DNA PCR (NotDetected) C. pneumoniae DNA (PCR) (NotDetected) Coronavirus OC43 (PCR) (NotDetected) Coronavirus HKU1 (PCR) (NotDetected) Coronavirus 229E (PCR) (NotDetected) SARS-CoV-2 (PCR) (NotDetected) Coronavirus NL63 (PCR) (NotDetected) Human Metapneumovir PCR (NotDetected) Influenza Type A (PCR) (NotDetected) Influenza Type B (PCR) (NotDetected) M. pneumoniae (PCR) (NotDetected) Parainfluenza 1 (PCR) (NotDetected) Parainfluenza 2 (PCR) (NotDetected) Parainfluenza 3 (PCR) (NotDetected) Parainfluenza 4 (PCR) (NotDetected) RSV (PCR) (NotDetected) Entero/Rhino (PCR) (NotDetected) Blood Type Blood Type Recheck Antibody Screen Crossmatch 05/18/22 05/18/22 05/18/22 Range/Units 16:53 16:53 17:22 WBC (4.8-10.8) K/ul RBC (4.20-5.40) M/uL Hgb (12.0-16.0) g/dl POC Hgb (12.0-16.0) g/dl Hct (37.0-47.0) % POC Hct (37-47) % MCV (80.0-100.0) fL MCH (25.0-34.0) pg MCHC (32.0-36.0) g/dL RDW Std Deviation (36.4-46.3) fL RDW Coeff of Nelson (11.5-14.5) % Plt Count (130-400) K/uL MPV (9.4-12.4) fL Immature Gran % (Auto) % Neut % (Auto) % Lymph % (Auto) % Atkinson % (Auto) % Eos % (Auto) % Baso % (Auto) % Neut # (Auto) (1.40-6.50) K/uL Lymph # (Auto) (1.2-3.4) K/uL Atkinson # (Auto) (0.11-0.59) K/uL Eos # (Auto) (0-0.50) K/uL Baso # (Auto) (0-0.2) K/uL Immature Gran # (Auto) (0.01-0.20) K/uL Absolute Nucleated RBC (0-0.12) K/uL Nucleated RBC % (auto) % Toxic Vacuolation PT (9.0-12.0) Seconds INR (0.9-1.1) APTT (21.0-31.0) Seconds PTT Ratio Fibrinogen (184-400) mg/dl VBG pH (7.36-7.41) VBG pCO2 (38-50) mmHg VBG pO2 mmHg VBG HCO3 mmol/L VBG O2 Saturation % VBG Base Excess mEq/L POC Sodium (135-144) mmol/L Sodium (136-145) mmol/L POC Potassium (3.3-5.0) mmol/L Potassium (3.5-5.1) mmol/L POC Chloride (101-112) mmol/L Chloride (98-107) mmol/L Carbon Dioxide (21-32) mmol/L POC Total CO2 (24-31) mmol/L Anion Gap (3-11) POC Anion Gap (16-25) mmol/L POC BUN (7-18) mg/dl BUN (6-23) mg/dl Creatinine (0.6-1.2) mg/dl POC Creatinine (0.6-1.3) mg/dl Est Cr Clr Drug Dosing Est GFR ( Amer) ml/min Est GFR (Non-Af Amer) ml/min BUN/Creatinine Ratio (10-20) Glucose (70-99(Fasting)) mg/dl POC Glucose (other) (70-99) mg/dl Osmolality (280-300) mOsm/kg Lactate (0.4-2.0) mmol/L Calcium (8.5-10.1) mg/dl POC Ioniz Calcium Kiki (1.12-1.32) mmol/l Phosphorus 7.4 H (2.5-4.9) mg/dl Magnesium (1.7-2.4) mg/dl Total Bilirubin (0.2-1.0) mg/dl Direct Bilirubin (0-0.2) mg/dl AST (13-39) U/L ALT (7-52) U/L Alkaline Phosphatase (34-104) U/L Troponin I High Sens (0-14) pg/ml Total Protein (6.0-8.3) gm/dl Albumin (3.4-5.0) gm/dl Lipase (11-82) U/L Procalcitonin (0-0.5) ng/ml Random Cortisol > 60.00 mcg/dl Adenovirus (PCR) (NotDetected) B. pertussis DNA (PCR) (NotDetected) B.parapertussis DNA PCR (NotDetected) C. pneumoniae DNA (PCR) (NotDetected) Coronavirus OC43 (PCR) (NotDetected) Coronavirus HKU1 (PCR) (NotDetected) Coronavirus 229E (PCR) (NotDetected) SARS-CoV-2 (PCR) (NotDetected) Coronavirus NL63 (PCR) (NotDetected) Human Metapneumovir PCR (NotDetected) Influenza Type A (PCR) (NotDetected) Influenza Type B (PCR) (NotDetected) M. pneumoniae (PCR) (NotDetected) Parainfluenza 1 (PCR) (NotDetected) Parainfluenza 2 (PCR) (NotDetected) Parainfluenza 3 (PCR) (NotDetected) Parainfluenza 4 (PCR) (NotDetected) RSV (PCR) (NotDetected) Entero/Rhino (PCR) (NotDetected) Blood Type O Positive Blood Type Recheck Antibody Screen NEGATIVE Crossmatch See Detail 05/18/22 05/18/22 05/18/22 Range/Units 17:22 17:25 17:26 WBC (4.8-10.8) K/ul RBC (4.20-5.40) M/uL Hgb (12.0-16.0) g/dl POC Hgb 15.0 (12.0-16.0) g/dl Hct (37.0-47.0) % POC Hct 44 (37-47) % MCV (80.0-100.0) fL MCH (25.0-34.0) pg MCHC (32.0-36.0) g/dL RDW Std Deviation (36.4-46.3) fL RDW Coeff of Nelson (11.5-14.5) % Plt Count (130-400) K/uL MPV (9.4-12.4) fL Immature Gran % (Auto) % Neut % (Auto) % Lymph % (Auto) % Atkinson % (Auto) % Eos % (Auto) % Baso % (Auto) % Neut # (Auto) (1.40-6.50) K/uL Lymph # (Auto) (1.2-3.4) K/uL Atkinson # (Auto) (0.11-0.59) K/uL Eos # (Auto) (0-0.50) K/uL Baso # (Auto) (0-0.2) K/uL Immature Gran # (Auto) (0.01-0.20) K/uL Absolute Nucleated RBC (0-0.12) K/uL Nucleated RBC % (auto) % Toxic Vacuolation PT (9.0-12.0) Seconds INR (0.9-1.1) APTT (21.0-31.0) Seconds PTT Ratio Fibrinogen (184-400) mg/dl VBG pH 7.21 L (7.36-7.41) VBG pCO2 41 (38-50) mmHg VBG pO2 26 mmHg VBG HCO3 16 mmol/L VBG O2 Saturation < 60.0 % VBG Base Excess -11.0 mEq/L POC Sodium 126 L (135-144) mmol/L Sodium (136-145) mmol/L POC Potassium 4.8 (3.3-5.0) mmol/L Potassium (3.5-5.1) mmol/L POC Chloride 96 L (101-112) mmol/L Chloride (98-107) mmol/L Carbon Dioxide (21-32) mmol/L POC Total CO2 16 L (24-31) mmol/L Anion Gap (3-11) POC Anion Gap 19.0 (16-25) mmol/L POC BUN 73 H (7-18) mg/dl BUN (6-23) mg/dl Creatinine (0.6-1.2) mg/dl POC Creatinine 4.5 H (0.6-1.3) mg/dl Est Cr Clr Drug Dosing Est GFR ( Amer) ml/min Est GFR (Non-Af Amer) ml/min BUN/Creatinine Ratio (10-20) Glucose (70-99(Fasting)) mg/dl POC Glucose (other) 172 H (70-99) mg/dl Osmolality (280-300) mOsm/kg Lactate (0.4-2.0) mmol/L Calcium (8.5-10.1) mg/dl POC Ioniz Calcium Kiki 0.84 L (1.12-1.32) mmol/l Phosphorus (2.5-4.9) mg/dl Magnesium (1.7-2.4) mg/dl Total Bilirubin (0.2-1.0) mg/dl Direct Bilirubin (0-0.2) mg/dl AST (13-39) U/L ALT (7-52) U/L Alkaline Phosphatase (34-104) U/L Troponin I High Sens (0-14) pg/ml Total Protein (6.0-8.3) gm/dl Albumin (3.4-5.0) gm/dl Lipase (11-82) U/L Procalcitonin (0-0.5) ng/ml Random Cortisol mcg/dl Adenovirus (PCR) (NotDetected) B. pertussis DNA (PCR) (NotDetected) B.parapertussis DNA PCR (NotDetected) C. pneumoniae DNA (PCR) (NotDetected) Coronavirus OC43 (PCR) (NotDetected) Coronavirus HKU1 (PCR) (NotDetected) Coronavirus 229E (PCR) (NotDetected) SARS-CoV-2 (PCR) (NotDetected) Coronavirus NL63 (PCR) (NotDetected) Human Metapneumovir PCR (NotDetected) Influenza Type A (PCR) (NotDetected) Influenza Type B (PCR) (NotDetected) M. pneumoniae (PCR) (NotDetected) Parainfluenza 1 (PCR) (NotDetected) Parainfluenza 2 (PCR) (NotDetected) Parainfluenza 3 (PCR) (NotDetected) Parainfluenza 4 (PCR) (NotDetected) RSV (PCR) (NotDetected) Entero/Rhino (PCR) (NotDetected) Blood Type Blood Type Recheck O Positive Antibody Screen Crossmatch 05/18/22 Range/Units 17:29 WBC (4.8-10.8) K/ul RBC (4.20-5.40) M/uL Hgb (12.0-16.0) g/dl POC Hgb (12.0-16.0) g/dl Hct (37.0-47.0) % POC Hct (37-47) % MCV (80.0-100.0) fL MCH (25.0-34.0) pg MCHC (32.0-36.0) g/dL RDW Std Deviation (36.4-46.3) fL RDW Coeff of Nelson (11.5-14.5) % Plt Count (130-400) K/uL MPV (9.4-12.4) fL Immature Gran % (Auto) % Neut % (Auto) % Lymph % (Auto) % Atkinson % (Auto) % Eos % (Auto) % Baso % (Auto) % Neut # (Auto) (1.40-6.50) K/uL Lymph # (Auto) (1.2-3.4) K/uL Atkinson # (Auto) (0.11-0.59) K/uL Eos # (Auto) (0-0.50) K/uL Baso # (Auto) (0-0.2) K/uL Immature Gran # (Auto) (0.01-0.20) K/uL Absolute Nucleated RBC (0-0.12) K/uL Nucleated RBC % (auto) % Toxic Vacuolation PT (9.0-12.0) Seconds INR (0.9-1.1) APTT (21.0-31.0) Seconds PTT Ratio Fibrinogen (184-400) mg/dl VBG pH (7.36-7.41) VBG pCO2 (38-50) mmHg VBG pO2 mmHg VBG HCO3 mmol/L VBG O2 Saturation % VBG Base Excess mEq/L POC Sodium (135-144) mmol/L Sodium (136-145) mmol/L POC Potassium (3.3-5.0) mmol/L Potassium (3.5-5.1) mmol/L POC Chloride (101-112) mmol/L Chloride (98-107) mmol/L Carbon Dioxide (21-32) mmol/L POC Total CO2 (24-31) mmol/L Anion Gap (3-11) POC Anion Gap (16-25) mmol/L POC BUN (7-18) mg/dl BUN (6-23) mg/dl Creatinine (0.6-1.2) mg/dl POC Creatinine (0.6-1.3) mg/dl Est Cr Clr Drug Dosing Est GFR ( Amer) ml/min Est GFR (Non-Af Amer) ml/min BUN/Creatinine Ratio (10-20) Glucose (70-99(Fasting)) mg/dl POC Glucose (other) (70-99) mg/dl Osmolality (280-300) mOsm/kg Lactate (0.4-2.0) mmol/L Calcium (8.5-10.1) mg/dl POC Ioniz Calcium Kiki (1.12-1.32) mmol/l Phosphorus (2.5-4.9) mg/dl Magnesium (1.7-2.4) mg/dl Total Bilirubin (0.2-1.0) mg/dl Direct Bilirubin (0-0.2) mg/dl AST (13-39) U/L ALT (7-52) U/L Alkaline Phosphatase (34-104) U/L Troponin I High Sens (0-14) pg/ml Total Protein (6.0-8.3) gm/dl Albumin (3.4-5.0) gm/dl Lipase (11-82) U/L Procalcitonin (0-0.5) ng/ml Random Cortisol mcg/dl Adenovirus (PCR) Not Detected (NotDetected) B. pertussis DNA (PCR) Not Detected (NotDetected) B.parapertussis DNA PCR Not Detected (NotDetected) C. pneumoniae DNA (PCR) Not Detected (NotDetected) Coronavirus OC43 (PCR) Not Detected (NotDetected) Coronavirus HKU1 (PCR) Not Detected (NotDetected) Coronavirus 229E (PCR) Not Detected (NotDetected) SARS-CoV-2 (PCR) Not Detected (NotDetected) Coronavirus NL63 (PCR) Not Detected (NotDetected) Human Metapneumovir PCR Not Detected (NotDetected) Influenza Type A (PCR) Not Detected (NotDetected) Influenza Type B (PCR) Not Detected (NotDetected) M. pneumoniae (PCR) Not Detected (NotDetected) Parainfluenza 1 (PCR) Not Detected (NotDetected) Parainfluenza 2 (PCR) Not Detected (NotDetected) Parainfluenza 3 (PCR) Not Detected (NotDetected) Parainfluenza 4 (PCR) Not Detected (NotDetected) RSV (PCR) Not Detected (NotDetected) Entero/Rhino (PCR) Not Detected (NotDetected) Blood Type Blood Type Recheck Antibody Screen Crossmatch Administered Medications Norepinephrine Bitartrate (Levophed/D5w) 4 mg in 250 mls @ 17.044 mls/hr IV .Q1 4H41M TIERA; Protocol Stop: 06/17/22 18:14 Last Titration: 05/18/22 20:04 Dose: 0.32 mcg/kg/min, 109 mls/hr Documented By: Titration: 05/18/22 19:01 Dose: 0.15 mcg/kg/min, 51.1 mls/hr Documented By: Titration: 05/18/22 18:50 Dose: 0.1 mcg/kg/min, 34.1 mls/hr Documented By: Titration: 05/18/22 18:43 Dose: 0.07 mcg/kg/min, 23.9 mls/hr Documented By: Admin: 05/18/22 18:33 Dose: 0.05 mcg/kg/min, 17 mls/hr Documented By: AB Co-signed By: OL Midazolam HCl (Versed) 125 mg in 250 mls @ 2 mls/hr IV .Q96H PRN; Protocol PRN Reason: Sedation Stop: 06/17/22 19:43 Last Admin: 05/18/22 20:03 Dose: 1 mg/hr, 2 mls/hr Documented By: DLH Co-signed By: BEZ Fentanyl Citrate (Fentanyl Citrate) 2,500 mcg in 250 mls @ 2.5 mls/hr IV .Q96H [facility]; Protocol Stop: 06/01/22 19:59 Last Admin: 05/18/22 20:03 Dose: 25 mcg/hr, 2.5 mls/hr Documented By: JUAN ALBERTO Co-signed By: ZION Discontinued Medications Diphenhydramine HCl (Diphenhydramine 50 Mg/Ml Vial) Confirm Administered Dose 50 mg .ROUTE .STK-MED ONE Stop: 05/18/22 20:25 Last Admin: 05/18/22 20:30 Dose: 50 mg Documented By: ZION Etomidate (Etomidate 2 Mg/Ml 20 Ml Vial) 30 mg IV NOW ONE Stop: 05/18/22 19:25 Last Admin: 05/18/22 19:46 Dose: 30 mg Documented By: JUAN ALBERTO Hydrocortisone Sodium Succinate (Hydrocortisone Sod Succinate 100 Mg/2 Ml Vial) Confirm Administered Dose 200 mg .ROUTE .STK-MED ONE Stop: 05/18/22 20:25 Last Admin: 05/18/22 20:30 Dose: 200 mg Documented By: ZION Sodium Chloride (Nss 1000ml) 1,000 mls @ 999 mls/hr IV .Q1H1M TIERA Stop: 05/18/22 19:57 Last Infusion: 05/18/22 19:19 Dose: 0 mls/hr Documented By: JUAN ALBERTO Admin: 05/18/22 18:25 Dose: 999 mls/hr Documented By: Infusion: 05/18/22 18:25 Dose: 999 mls/hr Documented By: Admin: 05/18/22 18:25 Dose: 999 mls/hr Documented By: Infusion: 05/18/22 18:16 Dose: 999 mls/hr Documented By: Admin: 05/18/22 17:15 Dose: 999 mls/hr Documented By: Piperacillin Sod/Tazobactam Sod (Zosyn) 4.5 gm in 120 mls @ 240 mls/hr IV NOW ONE Stop: 05/18/22 17:38 Last Infusion: 05/18/22 18:26 Dose: 0 mls/hr Documented By: Admin: 05/18/22 17:44 Dose: 240 mls/hr Documented By: Magnesium Sulfate/Dextrose (Magnesium Sulfate / D5w) 1 gm in 100 mls @ 100 mls/hr IV Q1H TIERA Stop: 05/18/22 19:45 Last Infusion: 05/18/22 19:29 Dose: 0 mls/hr Documented By: JUAN ALBERTO Admin: 05/18/22 18:24 Dose: 100 mls/hr Documented By: Infusion: 05/18/22 18:24 Dose: 100 mls/hr Documented By: Admin: 05/18/22 17:55 Dose: 100 mls/hr Documented By: AB Sodium Chloride (Nss 1000ml) 1,000 mls @ 999 mls/hr IV .Q1H1M ONE Stop: 05/18/22 19:01 Last Infusion: 05/18/22 19:19 Dose: 0 mls/hr Documented By: JUAN ALBERTO Admin: 05/18/22 18:25 Dose: 999 mls/hr Documented By: Vancomycin HCl 2,250 mg/ (Sodium Chloride) 545 mls @ 200 mls/hr IV NOW ONE Stop: 05/18/22 21:26 Last Admin: 05/18/22 18:57 Dose: 200 mls/hr Documented By: Lactated Ringer's (Lr) 1,000 mls @ 999 mls/hr IV .Q1H1M ONE Stop: 05/18/22 20:07 Last Infusion: 05/18/22 21:53 Dose: 0 mls/hr Documented By: Admin: 05/18/22 19:20 Dose: 999 mls/hr Documented By: JUAN ALBERTO Ioversol (Optiray 320 500ml) 113 ml IV ONCE ONE Stop: 05/18/22 21:21 Last Admin: 05/18/22 21:21 Dose: 113 ml Documented By: STANLEY Gonzalez (Stat Iv Infusion Titration Per Protocol) 1 each N/A NOW STA Stop: 05/18/22 18:02 Last Admin: 05/18/22 19:22 Dose: Not Given Documented By: JUAN ALBERTO Miscellaneous (Rapid Sequence Induction Bag) Confirm Administered Dose 1 each .ROUTE .STK-MED ONE Stop: 05/18/22 19:28 Last Admin: 05/18/22 20:05 Dose: 1 each Documented By: JUAN ALBERTO Cappsaneous (Stat Iv Infusion Titration Per Protocol) 1 each N/A NOW STA Stop: 05/18/22 19:45 Last Admin: 05/18/22 20:14 Dose: Not Given Documented By: JUAN ALBERTO Miscellaneous (Stat Iv Infusion Titration Per Protocol) 1 each N/A NOW STA Stop: 05/18/22 19:49 Last Admin: 05/18/22 20:14 Dose: Not Given Documented By: JUAN ALBERTO Rocuronium Niagara (Rocuronium [place]agara 10 Mg/Ml 5 Ml Vial) 110 mg IV ONCE STA Stop: 05/18/22 19:25 Last Admin: 05/18/22 19:47 Dose: 100 mg Documented By: JUAN ALBERTO Co-signed By: ZION Imaging Data Radiologist's Impression: Chest X-Ray 05/18/22 17:03 XR chest 1V portable HISTORY: 66 years-old Female Sepsis acute sepsis COMPARISON: 03/20/2022 TECHNIQUE: AP view of the chest FINDINGS: Cardiac silhouette is enlarged. Pulmonary vascular congestion. No pneumothorax or large pleural effusion. Bones appear grossly intact. Degenerative changes of the shoulders and spine. The stomach IMPRESSION: Mild pulmonary vascular congestion. ACT 112: Negative or not required by law. The above report was generated using voice recognition software. It may contain grammatical, syntax or spelling errors. Electronically signed by: Magan Singer M.D. 05/18/2022 6:10 PM Abdomen/Pelvis CT 05/18/22 17:11 CT chest diagnostic wo con, CT abd pelvis wo con CLINICAL HISTORY: 66 years-old Female with sepsis hypotension. Acute sepsis with hypotension TECHNIQUE: Multiaxial CT images of the chest, abdomen and pelvis were performed without contrast. A dose lowering technique was utilized adhering to the principles of ALARA. COMPARISON: None. FINDINGS: CT CHEST: Cardiomegaly with mitral coronary arterial calcifications. No thoracic aortic aneurysm. Small moderate right pleural effusion. Unremarkable thyroid. No l ymphadenopathy. Intralobular bronchial wall thickening with areas of mucous plugging. Mild dependent right basilar consolidation. Fluid-filled esophagus. Soft tissues and musculature. Degenerative changes of the shoulders and spine. CT ABDOMEN AND PELVIS: No pneumatosis or pneumoperitoneum. The unenhanced spleen, pancreas are within normal limits. Thickening of the genu glands suggestive of hyperplasia. Marginal nodularity. No adnexal masses identified. Distended gallbladder with possible sludge. There are 2 subcentimeter proteinaceous or hemorrhagic cyst of the superior pole left kidney. No hydronephrosis. Decompressed urinary bladder with Milan catheter. Atherosclerosis of the aorta. No lymphadenopathy. No bowel obstruction. Circumferential wall thickening is noted within the colon ascending from the mid transverse colon through the sigmoid and rectum with pericolonic and perirectal stranding and trace free fluid. Associated air-fluid levels appe ndix not visualized. No acute fracture. Degenerative changes of the spine, pelvis and hips. IMPRESSION: 1. Findings compatible with a nonspecific proctocolitis extending from the mid transverse colon distally. 2. Trace free pelvic fluid. 3. Small to moderate right pleural effusion with mild right basilar atelectasis. 4. Additional findings as above. ACT 112: Negative or not required by law. Electronically signed by: Magan Singer M.D. 05/18/2022 7:[address] 05/18/22 18:00 CT chest diagnostic wo con, CT abd pelvis wo con CLINICAL HISTORY: 66 years-old Female with sepsis hypotension. Acute sepsis with hypotension TECHNIQUE: Multiaxial CT images of the chest, abdomen and pelvis were performed without contrast. A dose lowering technique was utilized adhering to the principles of ALARA. COMPARISON: None. FINDINGS: CT CHEST: Cardiomegaly with mitral coronary arterial calcifications. No thoracic aortic aneurysm. Small moderate right pleural effusion. Unremarkable thyroid. No lymphadenopathy. Intralobular bronchial wall thickening with areas of mucous plugging. Mild dependent right basilar consolidation. Fluid-filled esophagus. Soft tissues and musculature. Degenerative changes of the shoulders and spine. CT ABDOMEN AND PELVIS: No pneumatosis or pneumoperitoneum. The unenhanced spleen, pancreas are within normal limits. Thickening of the genu glands suggestive of hyperplasia. Marginal nodularity. No adnexal masses identified. Distended gallbladder with possible sludge. There are 2 subcentimeter proteinaceous or hemorrhagic cyst of the superior pole left kidney. No hydronephrosis. Decompressed urinary bladder with Milan catheter. Atherosclerosis of the aorta. No lymphadenopathy. No bowel obstruction. Circumferential wall thickening is noted within the colon ascending from the mid transverse colon through the sigmoid and rectum with pericolonic an d perirectal stranding and trace free fluid. Associated air-fluid levels appendix not visualized. No acute fracture. Degenerative changes of the spine, pelvis and hips. IMPRESSION: 1. Findings compatible with a nonspecific proctocolitis extending from the mid transverse colon distally. 2. Trace free pelvic fluid. 3. Small to moderate right pleural effusion with mild right basilar atelectasis. 4. Additional findings as above. ACT 112: Negative or not required by law. Electronically signed by: Magan Singer M.D. 05/18/2022 7:[address] 05/18/22 18:00 CT head/brain wo con CLINICAL HISTORY: 66 years-old Female with ams. Acutely altered mental status TECHNIQUE: Multiple axial CT images of the head were obtained without contrast. A dose lowering technique was utilized adhering to the principles of ALARA. CT DOSE: 2808.39 mGy.cm COMPARISON: None. FINDINGS: No acute intracranial hemorrhage, midline shift, intracranial mass, hydrocephalus, territorial ischemia or abnormal extra-axial collection. Mild involutional changes with mild white matter hypodensities suggestive of chronic microvascular ischemic disease. There are several small ill-defined hypodense foci noted within the left frontal lobe centrum semiovale measuring up to approximately 1.5 cm.. Mildly motion degraded exam. The calvarium is intact. Prior bilateral lens repair. The paranasal sinuses, mastoid air cells, and middle ear cavities are clear. IMPRESSION: 1. No acute intracranial hemorrhage, midline shift or acute territorial infarct. 2. Suggestion of mild chronic microvascular ischemic disease. 3. Small ill-defined hypodense foci within the left frontal lobe centrum semiovale likely represent age-indeterminate lacunar infarcts. ACT 112: Negative or not required by law. The above report was generated using voice recognition software. It may contain grammatical, syntax or spelling errors. Electronically signed by: Magan Singer M.D. 05/18/2022 7:05 PM Discharge Plan Visit Data Chief Complaint: Altered Mental Status Stated Complaint: AMS, DIARRHEA, HYPOXIA ED Provider: Jimbo Silver Discharge Problem: Septic shock, GI bleed, Hyponatremia, Acute respiratory failure with hypoxia, Acute renal failure, High anion gap metabolic acidosis Patient Disposition: Admitted As Inpatient Discharge Instructions Interventions: ED Discharge Assessment Last Done: 05/18/22 21:00
[2022-05-18 17:43] LABS: Hemoglobin 14.3 g/dl (12.0-16.0); Mean Corpuscular Hgb Conc 34.9 g/dL (32.0-36.0); Mean Corpuscular Volume 77.5 fL (80.0-100.0); Mean Platelet Volume 10.6 fL (9.4-12.4); Nucleated RBC # (auto) 0.02 K/uL (0-0.12); Nucleated RBC % (auto) 0.1 %; Platelet Count 499 K/uL (130-400); RDW Coefficient of Variation 14.4 % (11.5-14.5); RDW Standard Deviation 39.8 fL (36.4-46.3); Red Blood Count 5.29 M/uL (4.20-5.40)
[2022-05-18 17:44] LABS: iSTAT Creatinine 4.5 mg/dl (0.6-1.3); iSTAT Ionized Calcium 0.84 mmol/l (1.12-1.32); iSTAT Potassium 4.8 mmol/L (3.3-5.0)
[2022-05-18 17:50] LABS: Toxic Vacuolation 2+
[2022-05-18 17:51] LABS: Basophils # (auto) 0.03 K/uL (0-0.2); Basophils % (auto) 0.1 %; Eosinophils # (auto) 0.18 K/uL (0-0.50); Eosinophils % (auto) 0.6 %; Immature Granulocytes # (auto) 1.55 K/uL (0.01-0.20); Immature Granulocytes % (auto) 4.8 %; Lymphocytes # (auto) 1.49 K/uL (1.2-3.4); Lymphocytes % (auto) 4.6 %; Monocytes # (auto) 2.29 K/uL (0.11-0.59); Neutrophils # (auto) 26.96 K/uL (1.40-6.50); Neutrophils % (auto) 82.9 %
[2022-05-18] MEDS: MAGNESIUM SULFATE / D5W 1 GM/100 ML BAG IV SCH ×3 (17:55→23:39)
[2022-05-18] MEDS ORDERED: STAT IV Infusion **Titration per Protocol STA ×4 (18:01→21:23)
[2022-05-18] MEDS ORDERED: SODIUM CHLORIDE 0.9% 1000ML 1,000 ML IV ONE (18:01)
--- NOTE | 2022-05-18 18:13 | XRay Report ---
XR chest 1V portable HISTORY: 66 years-old Female Sepsis acute sepsis COMPARISON: 03/20/2022 TECHNIQUE: AP view of the chest FINDINGS: Cardiac silhouette is enlarged. Pulmonary vascular congestion. No pneumothorax or large pleural effus ion. Bones appear grossly intact. Degenerative changes of the shoulders and spine. The stomach IMPRESSION: Mild pulmonary vascular congestion. ACT 112: Negative or not required by law. The above report was generated using voice recognition software. It may contain grammatical, syntax o r spelling errors. Electronically signed by: Magan Singer M.D. 05/18/2022 6:10 PM
[2022-05-18 18:24] LABS: Adenovirus PCR Not Detected (NotDetected); Bordetella parapertussis PCR Not Detected (NotDetected); Bordetella pertussis PCR Not Detected (NotDetected); Chlamydia pneumoniae PCR Not Detected (NotDetected); Coronavirus 229E PCR Not Detected (NotDetected); Coronavirus CoV-2 (COVID19)PCR Not Detected (NotDetected); Coronavirus HKU1 PCR Not Detected (NotDetected); Coronavirus NL63 PCR Not Detected (NotDetected); Coronavirus OC43PCR Not Detected (NotDetected); Human Metapneumovirus PCR Not Detected (NotDetected); Influenza A PCR Not Detected (NotDetected); Influenza B PCR Not Detected (NotDetected); Mycoplasma pneumoniae PCR Not Detected (NotDetected); Parainfluenza Virus 1 PCR Not Detected (NotDetected); Parainfluenza Virus 2 PCR Not Detected (NotDetected); Parainfluenza Virus 3 PCR Not Detected (NotDetected); Parainfluenza Virus 4 PCR Not Detected (NotDetected); Respiratory Syncytial VirusPCR Not Detected (NotDetected); Rhinovirus/Enterovirus PCR Not Detected (NotDetected)
[2022-05-18 18:25] LABS: Fibrinogen 360 mg/dl (184-400); INR 1.4 (0.9-1.1); Partial Thromboplastin Ratio 1.4; Partial Thromboplastin Time 39.4 Seconds (21.0-31.0); Prothrombin Time 14.6 Seconds (9.0-12.0)
[2022-05-18] MEDS: NOREPINEPHRINE/D5W 4 MG/250 ML PLCT IV SCH ×2 (18:33→23:56)
[2022-05-18] MEDS ORDERED: VANCOMYCIN HCL 2,250 MG in SODIUM CHLORIDE 0.9% 500 ML IV ONE (18:43)
[2022-05-18] MEDS ORDERED: VANCOMYCIN CONSULT ACTIVE PRN (18:43)
[2022-05-18] MEDS ORDERED: LACTATED RINGER'S 1,000 ML IV ONE (19:07)
--- NOTE | 2022-05-18 19:07 | CT Scan Report ---
CT head/brain wo con CLINICAL HISTORY: 66 years-old Female with ams. Acutely altered mental status TECHNIQUE: Multiple axial CT images of the head were obtained without contrast. A dose lowering tech nique was utilized adhering to the principles of ALARA. CT DOSE: 2808.39 mGy.cm COMPARISON: None. FINDINGS: No acute intracranial hemorrhage, midline shift, intracranial mass, hydrocephalus, territorial ischem ia or abnormal extra-axial collection. Mild involutional changes with mild white matter hypodensities suggestive of chronic microvascular ischemic disease. There are several small ill-defined hypodense foci noted within the left frontal lobe centrum semiovale measuring up to approximately 1.5 cm.. Mild ly motion degraded exam. The calvarium is intact. Prior bilateral lens repair. The paranasal sinuses, mastoid air cells, and middle ear cavities are clear. IMPRESSION: 1. No acute intracranial hemorrhage, midline shift or acute territorial infarct. 2. Suggestion of mild chronic microvascular ischemic disease. 3. Small ill-defined hypodense foci within the left frontal lobe centrum semiovale likely represent a ge-indeterminate lacunar infarcts. ACT 112: Negative or not required by law. The above report was generated using voice recognition software. It may contain grammatical, syntax o r spelling errors. Electronically signed by: Magan Singer M.D. 05/18/2022 7:05 PM
--- NOTE | 2022-05-18 19:07 | CT Scan Report ---
CT chest diagnostic wo con, CT abd pelvis wo con CLINICAL HISTORY: 66 years-old Female with sepsis hypotension. Acute sepsis with hypotension TECHNIQUE: Multiaxial CT images of the chest, abdomen and pelvis were performed without contrast. A dose lowering technique was utilized adhering to the principles of ALARA. COMPARISON: None. FINDINGS: CT CHEST: Cardiomegaly with mitral coronary arterial calcifications. No thoracic aortic aneurysm. Small moderat e right pleural effusion. Unremarkable thyroid. No lymphadenopathy. Intralobular bronchial wall thick ening with areas of mucous plugging. Mild dependent right basilar consolidation. Fluid-filled esophag us. Soft tissues and musculature. Degenerative changes of the shoulders and spine. CT ABDOMEN AND PELVIS: No pneumatosis or pneumoperitoneum. The unenhanced spleen, pancreas are within normal limits. Thicken ing of the genu glands suggestive of hyperplasia. Marginal nodularity. No adnexal masses identified. Distended gallbladder with possible sludge. There are 2 subcentimeter proteinaceous or hemorrhagic cy st of the superior pole left kidney. No hydronephrosis. Decompressed urinary bladder with Milan jaki ter. Atherosclerosis of the aorta. No lymphadenopathy. No bowel obstruction. Circumferential wall thi ckening is noted within the colon ascending from the mid transverse colon through the sigmoid and rec zulay with pericolonic and perirectal stranding and trace free fluid. Associated air-fluid levels appen zenaida not visualized. No acute fracture. Degenerative changes of the spine, pelvis and hips. IMPRESSION: 1. Findings compatible with a nonspecific proctocolitis extending from the mid transverse colon dista lly. 2. Trace free pelvic fluid. 3. Small to moderate right pleural effusion with mild right basilar atelectasis. 4. Additional findings as above. ACT 112: Negative or not required by law. Electronically signed by: Magan Singer M.D. 05/18/2022 7:05 PM
[2022-05-18] MEDS ORDERED: ETOMIDATE 2 MG/ML 20 ML VIAL IV ONE (19:24)
[2022-05-18] MEDS ORDERED: ROCURONIUM BROMIDE 10 MG/ML 5 ML VIAL IV STA (19:24)
[2022-05-18] MEDS ORDERED: RAPID SEQUENCE INDUCTION BAG ONE (19:27)
[2022-05-18 19:41] LABS: Base Excess ABG -16.1 mEq/L (-9-1.8); HCO3 ABG 12 mmol/L (19-24); Oxygen Saturation ABG < 60.0 % (90-95); PCO2 ABG 37 mmHg (35-46); PO2 ABG 35 mmHg (80-95)
[2022-05-18 19:43] LABS: Allen Test Pos (Pos)
[2022-05-18] MEDS ORDERED: MIDAZOLAM HCL 125 MG/250 ML BAG IV PRN (19:44)
[2022-05-18] MEDS ORDERED: MIDAZOLAM BOLUS FROM BAG IV PRN ×2 (19:44→19:46)
[2022-05-18 19:48] LABS: iSTAT Creatinine 3.4 mg/dl (0.6-1.3); iSTAT Hemoglobin 12.9 g/dl (12.0-16.0); iSTAT Ionized Calcium 0.75 mmol/l (1.12-1.32); iSTAT Potassium 3.8 mmol/L (3.3-5.0)
[2022-05-18] MEDS ORDERED: fentaNYL BOLUS from BAG IV PRN ×2 (19:48→19:49)
[2022-05-18 19:51] LABS: pH ABG 7.13 (7.35-7.45)
[2022-05-18 19:55] LABS: Hematocrit (blood only) 34.6 % (37.0-47.0); Hemoglobin 11.8 g/dl (12.0-16.0)
[2022-05-18] MEDS ORDERED: fentaNYL citrate 2,500 MCG/250 ML BAG IV SCH (20:00)
--- NOTE | 2022-05-18 20:00 | History & Physical Report ---
Date of Service May 18, 2022 Assessment & Plan (1) Septic shock: (2) GI bleed: (3) Respiratory failure with hypoxia: (4) MARIA ELENA (acute kidney injury): (5) Hyponatremia: (6) DM2 (diabetes mellitus, type 2): (7) HLD (hyperlipidemia): (8) HTN (hypertension): (9) H/O: CVA (cerebrovascular accident): (10) Neurogenic bladder: (11) Paroxysmal atrial fibrillation: (12) Depression with anxiety: Plan Septic Shock with metabolic encephalopathy: -due to persistent hypotension pt was started on LEvophed -UCx and BCx sent -will start pt on vanc and zosyn - pt is s/p 3.7 L and getting a 1L of LR - Procal and LA elevated --- will repeat LA in 2 hours -lovelace was changed in the ER - CXR: mild pulm vascular congestion - CT head: no acute finding - CT chest/CT abd: Small to moderate right pleural effusion with mild right basilar atelectasis. Findings compatible with a nonspecific proctocolitis extending from the mid transverse colon distally. -Biofire: neg - ICU admission GI bleed: had dark colour stool in the ER -ICU is planning on intubating the pt due to possible another episode of vomiting with aspiration ---- holding oral meds -protonix drip -ICU requested Abd angio --- order placed with pretreatment for contrast dye -Trend CBC MARIA ELENA: -2/2 septic shock - pt is receiving fluids --trend BMP Afib on Eliquis: -due to GI bleed will hold Eliquis -for now will hold oral Dilt (planning for intubation) --- depending on BP and HR response to Levophed will consider IV BB Electrolytes abnormalities with HypoNa+: -likely hypovolemia - receiving IVF - monitor BMP DMII: -pt is getting intubated therefore will hold home insulin dose for now CVA, Neurogenic bladder and anxiety: -holding oral medications -urinary catheter changed in the ER Diet:NPO DVT PPx:SCD Code Status:FULL CODE History of Present Illness Chief Complaint: septic shock Primary Care Provider: [facility] Pt is a 66 y/o F with hx of CVA with R hemiplegia, Afib on Eliquis, chronic urinary catheter 2/2 neurogenic bladder, DMII, HTN, HLD, anxiety brought in from [facility] with AMS, hypotension and possible GI bleed. Pt was found to be hypotensive in the ER therefore started on Levophed. At bedside: pt is minimally responsive to verbal stimuli therefore unable to get any history. Allergies Allergy/AdvReac Type Severity Reaction Status Date / Time adhesive tape Allergy Unknown Unknown Verified 05/18/22 18:23 aspirin Allergy Unknown Unknown Verified 05/18/22 18:23 atorvastatin Allergy Unknown Unknown Verified 05/18/22 18:23 citalopram [From Celexa] Allergy Unknown Unknown Verified 05/18/22 18:23 Iodinated Contrast Media Allergy Unknown Unknown Verified 05/18/22 18:23 iodine Allergy Unknown Unknown Verified 05/18/22 18:23 latex Allergy Unknown Unknown Verified 05/18/22 18:23 sertraline [From Zoloft] Allergy Unknown Unknown Verified 05/18/22 18:23 Sulfa (Sulfonamide Allergy Unknown Unknown Verified 05/18/22 18:23 Antibiotics) ekg leads Allergy Unknown Unknown Uncoded 05/18/22 18:23 Home Medications Medication Instructions Recorded Confirmed Type acetaminophen 325 mg tablet 650 mg PO Q6 PRN Pain 03/20/22 05/18/22 History acetaminophen 325 mg tablet 650 mg PO Q6 PRN temp>101 03/20/22 05/18/22 History apixaban 5 mg tablet (Eliquis) 5 mg PO BID 03/20/22 05/18/22 History cholecalciferol (vitamin D3) 125 125 mcg PO DAILY 03/20/22 05/18/22 History mcg (5,000 unit) tablet (Vitamin D3) diltiazem HCl 180 mg 180 mg PO DAILY 03/20/22 05/18/22 History capsule,extended release 24 hr furosemide 40 mg tablet 40 mg PO DAILY 03/20/22 05/18/22 History gabapentin 100 mg capsule 200 mg PO DAILY 03/20/22 05/18/22 History lisinopril 10 mg tablet 10 mg PO DAILY 03/20/22 05/18/22 History pravastatin 40 mg tablet 40 mg PO DAILY 03/20/22 05/18/22 History sitagliptin phosphate 100 mg 100 mg PO DAILY 03/20/22 05/18/22 History tablet (Januvia) sotalol 80 mg tablet 80 mg PO BID 03/20/22 05/18/22 History trazodone 150 mg tablet 75 mg PO HS 03/20/22 05/18/22 History insulin glargine 100 unit/mL (3 15 unit (0.15 mL) subcut HS #15 mL 03/24/22 05/18/22 Rx mL) subcutaneous pen (Lantus Solostar U-100 Insulin) Boost Glucose Control 8 oz PO . AT BREAKFAST 05/18/22 05/18/22 History cyanocobalamin (vitamin B-12) 500 500 mcg PO Q OTHER DAY 05/18/22 05/18/22 History mcg tablet (Vitamin B-12) duloxetine 60 mg capsule,delayed 60 mg PO DAILY 05/18/22 05/18/22 History release (Cymbalta) tramadol 50 mg tablet 50 mg PO Q8H PRN pain level 6-10 05/18/22 05/18/22 History Past Med/Surg History Medical History Acute UTI Depression with anxiety DM2 (diabetes mellitus, type 2) H/O: CVA (cerebrovascular accident) HLD (hyperlipidemia) HTN (hypertension) Neurogenic bladder Paroxysmal atrial fibrillation Surgical History H/O: hysterectomy Family History Other Heart disease Social History Smoking Status: Unknown if ever smoked Second Hand Exposure: No; Hx Alcohol Use: No Hx Substance Use: No Preferred Language: Georgian Communication Ability: Effective Beliefs That Will Affect Care: None Current Living Situation: Retirement Feels Safe at Home: Yes Assistive Devices: Hospital Bed and Wheelchair Review of Systems Review of Systems: unable to obtain Physical Exam Physical Exam: Obese pt, lethargic, NC in place (2L) HEENT: dry dark colour substance on the tongue and lip Lungs: fair air entry b/l with lower lobe rales Cardiac: Normal S1/S2, no murmur Abd: obese abd, pt appeared to be in distress on palpation diffusely --- normal BS MSK: Trace b/l LE pitting edema Psych: minimally responsive to verbal stimuli. Pt is lethargic Results & Data Results & Data ([facility]) Vital Signs (Past 12 Hours) Vital Signs Temp Pulse Pulse Resp BP BP Pulse Ox 05/18/22 17:41 72 19 62/29 L 98 05/18/22 17:35 70 18 61/26 L 97 05/18/22 17:46 36.0 C L 71 34 H 62/29 L 98 05/18/22 17:37 36 C L 05/18/22 17:29 36 C L 70 18 97 05/18/22 17:09 97 05/18/22 17:02 97 05/18/22 17:07 58/39 L 05/18/22 17:07 70 20 60/40 L 98 05/18/22 17:03 76 10 L 97 05/18/22 16:30 36.6 C 76 8 L 58/39 L 97 05/18/22 16:58 69 O2 Del Method O2 Flow Rate 05/18/22 17:41 Nasal Cannula 2 05/18/22 17:35 Nasal Cannula 2 05/18/22 17:46 Nasal Cannula 2 05/18/22 17:37 05/18/22 17:29 05/18/22 17:09 Nasal Cannula 2 05/18/22 17:02 Nasal Cannula 2 05/18/22 17:07 05/18/22 17:07 Nasal Cannula 2 05/18/22 17:03 Nasal Cannula 2 05/18/22 16:30 Nasal Cannula 2 05/18/22 16:58 Laboratory Results Short CBC 05/18/22 05/18/22 Range/Units 16:53 19:32 WBC 32.50 H* (4.8-10.8) K/ul Hgb 14.3 11.8 L (12.0-16.0) g/dl Hct 41.0 34.6 L (37.0-47.0) % Plt Count 499 H (130-400) K/uL BMP 05/18/22 16:53 Sodium 127 L Potassium 4.9 Chloride 93 L Carbon Dioxide 15 L BUN 85 H Creatinine 4.06 H Glucose 188 H Calcium 7.3 L Liver Function 05/18/22 Range/Units 16:53 Total Bilirubin 0.9 (0.2-1.0) mg/dl Direct Bilirubin 0.4 H (0-0.2) mg/dl AST 16 (13-39) U/L ALT 8 (7-52) U/L Alkaline Phosphatase 86 (34-104) U/L Albumin 2.3 L (3.4-5.0) gm/dl Diagnostic Findings Chest X-Ray 05/18/22 17:03 XR chest 1V portable HISTORY: 66 years-old Female Sepsis acute sepsis COMPARISON: 03/20/2022 TECHNIQUE: AP view of the chest FINDINGS: Cardiac silhouette is enlarged. Pulmonary vascular congestion. No pneumothorax or large pleural effusion. Bones appear grossly intact. Degenerative changes of the shoulders and spine. The stomach IMPRESSION: Mild pulmonary vascular congestion. ACT 112: Negative or not required by law. The above report was generated using voice recognition software. It may contain grammatical, syntax or spelling errors. Electronically signed by: Magan Singer M.D. 05/18/2022 6:10 PM Abdomen/Pelvis CT 05/18/22 17:11 CT chest diagnostic wo con, CT abd pelvis wo con CLINICAL HISTORY: 66 years-old Female with sepsis hypotension. Acute sepsis with hypotension TECHNIQUE: Multiaxial CT images of the chest, abdomen and pelvis were performed without contrast. A dose lowering technique was utilized adhering to the principles of ALARA. COMPARISON: None. FINDINGS: CT CHEST: Cardiomegaly with mitral coronary arterial calcifications. No thoracic aortic aneurysm. Small moderate right pleural effusion. Unremarkable thyroid. No lymphadenopathy. Intralobular bronchial wall thickening with areas of mucous plugging. Mild dependent right basilar consolidation. Fluid-filled esophagus. Soft tissues and musculature. Degenerative changes of the shoulders and spine. CT ABDOMEN AND PELVIS: No pneumatosis or pneumoperitoneum. The unenhanced spleen, pancreas are within normal limits. Thickening of the genu glands suggestive of hyperplasia. Marginal nodularity. No adnexal masses identified. Distended gallbladder with possible sludge. There are 2 subcentimeter proteinaceous or hemorrhagic cyst of the superior pole left kidney. No hydronephrosis. Decompressed urinary bladder with Lovelace catheter. Atherosclerosis of the aorta. No lymphadenopathy. No bowel obstruction. Circumferential wall thickening is noted within the colon ascending from the mid transverse colon through the sigmoid and rectum with pericolonic and perirectal stranding and trace free fluid. Associated air-fluid levels appendix not visualized. No acute fracture. Degenerative changes of the spine, pelvis and hips. IMPRESSION: 1. Findings compatible with a nonspecific proctocolitis extending from the mid transverse colon distally. 2. Trace free pelvic fluid. 3. Small to moderate right pleural effusion with mild right basilar atelectasis. 4. Additional findings as above. ACT 112: Negative or not required by law. Electronically signed by: Magan Singer M.D. 05/18/2022 7:[address] 05/18/22 18:00 CT chest diagnostic wo con, CT abd pelvis wo con CLINICAL HISTORY: 66 years-old Female with sepsis hypotension. Acute sepsis with hypotension TECHNIQUE: Multiaxial CT images of the chest, abdomen and pelvis were performed without contrast. A dose lowering technique was utilized adhering to the principles of ALARA. COMPARISON: None. FINDINGS: CT CHEST: Cardiomegaly with mitral coronary arterial calcifications. No thoracic aortic aneurysm. Small moderate right pleural effusion. Unremarkable thyroid. No lymphadenopathy. Intralobular bronchial wall thickening with areas of mucous plugging. Mild dependent right basilar consolidation. Fluid-filled esophagus. Soft tissues and musculature. Degenerative changes of the shoulders and spine. CT ABDOMEN AND PELVIS: No pneumatosis or pneumoperitoneum. The unenhanced spleen, pancreas are within normal limits. Thickening of the genu glands suggestive of hyperplasia. Marginal nodularity. No adnexal masses identified. Distended gallbladder with possible sludge. There are 2 subcentimeter proteinaceous or hemorrhagic cyst of the superior pole left kidney. No hydronephrosis. Decompressed urinary bladder with Lovelace catheter. Atherosclerosis of the aorta. No lymphadenopathy. No bowel obstruction. Circumferential wall thickening is noted within the colon ascending from the mid transverse colon through the sigmoid and rectum with pericolonic and perirectal stranding and trace free fluid. Associated air-fluid levels appendix not visualized. No acute fracture. Degenerative changes of the spine, pelvis and hips. IMPRESSION: 1. Findings compatible with a nonspecific proctocolitis extending from the mid transverse colon distally. 2. Trace free pelvic fluid. 3. Small to moderate right pleural effusion with mild right basilar atelectasis. 4. Additional findings as above. ACT 112: Negative or not required by law. Electronically signed by: Magan Singer M.D. 05/18/2022 7:[address] 05/18/22 18:00 CT head/brain wo con CLINICAL HISTORY: 66 years-old Female with ams. Acutely altered mental status TECHNIQUE: Multiple axial CT images of the head were obtained without contrast. A dose lowering technique was utilized adhering to the principles of ALARA. CT DOSE: 2808.39 mGy.cm COMPARISON: None. FINDINGS: No acute intracranial hemorrhage, midline shift, intracranial mass, hydroce phalus, territorial ischemia or abnormal extra-axial collection. Mild involutional changes with mild white matter hypodensities suggestive of chronic microvascular ischemic disease. There are several small ill-defined hypodense foci noted within the left frontal lobe centrum semiovale measuring up to approximately 1.5 cm.. Mildly motion degraded exam. The calvarium is intact. Prior bilateral lens repair. The paranasal sinuses, mastoid air cells, and middle ear cavities are clear. IMPRESSION: 1. No acute intracranial hemorrhage, midline shift or acute territorial infarct. 2. Suggestion of mild chronic microvascular ischemic disease. 3. Small ill-defined hypodense foci within the left frontal lobe centrum semiovale likely represent age-indeterminate lacunar infarcts. ACT 112: Negative or not required by law. The above report was generated using voice recognition software. It may contain grammatical, syntax or spelling errors. Electronically signed by: Magan Singer M.D. 05/18/2022 7:05 PM Code Status & VTE Plan VTE Prophylaxis Plan VTE Prophylaxis will be ordered: Yes Reason for no VTE drug order: Contraindicated
[2022-05-18] MEDS ORDERED: diphenhydrAMINE 50 MG/ML VIAL ONE (20:24)
[2022-05-18] MEDS ORDERED: HYDROCORTISONE SOD SUCCINATE 100 MG/2 ML VIAL ONE (20:24)
[2022-05-18] MEDS ORDERED: CALCIUM CHLORIDE 10% 1,000 MG in DEXTROSE 5% 50 ML IV STA (20:30)
--- NOTE | 2022-05-18 20:30 | Critical Care Consultation ---
Date of Consultation May 18, 2022 Assessment & Plan (1) Colitis: (2) Septic shock: (3) High anion gap metabolic acidosis: (4) MARIA ELENA (acute kidney injury): (5) Hyponatremia: (6) Respiratory failure with hypoxia: (7) GI bleed: (8) HTN (hypertension): (9) HLD (hyperlipidemia): (10) DM2 (diabetes mellitus, type 2): (11) Neurogenic bladder: (12) Paroxysmal atrial fibrillation: Plan Reason Critically Ill: Patient presents with metabolic encephalopathy in the setting of shock which at this time is likely septic with evidence of end organ damage. Persistently hypotensive despite aggressive volume resuscitation in EMD, and increasing lactic acidsosis. Patient was intubated in the EMD for worsening clinical status, central access was obtained following intubation and rapidly escalation of vasopressors was undertaken. Patient to ICU remained acidotic requiring bicarbonate push. Patient is critically ill with high risk of mortality- [place] II score of 23 with 46% predicted mortality. Neuro - Metabolic Encephalopathy, Sedated for mechanical ventilation, history of CVA with right sided residual weakness - Patient continued with encephalopathy and obtundation- to support her resuscitation and hemodynamics patient was intubated - Sedated with versed and fentanyl- Goal Neel -2 - Daily awakenings - SBT when appropriate - PT/OT when able - Hold Trazodone with encephalopathy as well as prolonged QTc Cardiac - Shock, sepsis, HTN, HLD, Hx PAF, Prolonged QTc, elevated HScTNI - Shock at this time likely sepsis however can't rule out blood loss to GI source with evidence of dried blood in oral cavity - CTA of abdomen and pelvis without evidence of bowel ischemia or active bleeding - Consistent with colitis - continue supportive care for septic shock - Vasopressor support to maintain MAPS >65 - Hold Sotalol and BB while on vasopressors and with prolonged Qtc- follow with daily ECG- replete magnesium - Hold other antihypertensives while on vasopressors - Trend HScTNI admitting ECG without ischemic changes- likley demand type II in setting of shock- trend with noting renal function - Hold Eliquis - currently in NSR - Random Cortisol 60 Respiratory - Intubation and mechanical ventilation - intubated for airway support with obtundation and use of accessory muscles - supportive care and sepsis resuscitation as above - ARDsnet ventilatory strategy GI - R/O GI bleed source unspecified, colitis, Cholecystitis - Protonix drip initiated in EMD- continue for 24 hours then transistion to BID dosing - OGT placed with no shravan blood noted - has not had any further dark/bloody stools since admission- no evidence of active bleeding on CTA of abdomen and pelvis - Continue supportive care - NPO while on multiple pressors - Thickened gallbladder with sludge interpreted on orignal CT of abdomen- without evidence of cholelethiasis and normal biliary labs- consider RUQUS RENAL/LYTES - AGAP Metabolic/alkalosis, MARIA ELENA, Hypocalcemia, Hypomagnesemia - AGAP acidosis likely related to lactic acidosis and elevated BUN - Adequately resuscitated remains with PH 7.0 and multiple pressors- HCO3 admin istration - IVF isotonic BICARB in sterile water - Making adequate urine follow renal function - renal dose medications - electrolyte protocol - Complicated UTI, Chronic indwelling lovelace cathter, neurogenic bladder - Cathter changed, await Urine Culture- reported purlent drainage with removal of previous catheter - supportive care for source of sepsis ENDO - DMII - Goal <180mg/DL- ICU hyperglycemic protocol - consider Insulin GTT while on vasopressors HEME - Leukocytosis, anemia, - As above and see ID section - Likely component as well of hemoconcentration follow closely ID - Septic shock - Sources at this time likely Urine, GI tract/colitis, currently can't rull out pulmonary source - Continue with Zosyn/Vancomycin- await MRSA swab - Will treat empirically for CDIFF with notable elevated WBC and colitis on imaging with recent hospitalization and [facility] exposures - blood and urine cultures are pending - stool culture pending next bowel movement LINES/IV ACCESS - PIV x2, CVL, Arterial line, Lovelace, ETT, Oral Gastric Tube Continue use of these lines DVT PROPHYLAXIS - SCDS - Hold further chemoprophylaxis until GIB ruled in/out DISPO: ICU while intubated and on vasoactive support I have personally spent 65 minutes of critical care time in the direct management of this patient. This is a life/limb threatening event. This includes time spent evaluating patient, direct bedside care, chart review, placing orders, interpretation of diagnostic studies, discussion with consultants/coordination of care, discussing care with patient, as well as other required patient management activities. This time is exclusive of all separately billable procedures, separate from and in addition to any other critical care service time. Thank you for allowing us to participate in the care of this patient. Please refer to my attending physician's documentation for any further recommendations. History of Present Illness Reason for Consultation: hypotension requiring vasoactive support, sepsis, concern for GI bleed, MARIA ELENA Requesting Physician: Janette Gusman MD Attending Physician: Janette Gusman MD History of Present Illness 66 [facility] medical history of: CVA with residual right sided weakness, chronic indwelling lovelace catheter for neurogenic bladder, mobrid obesity, HTN, GI bleeds, DM II, chronic hyponatremia, PAF (on Eliquis). Patient was [facility] from [facility] for concerns of encephalopathy and reported bloody bowel movements. She was noted to by obtunded, acidotic, mildly hypothermic, and with dried blood in oral cavity. Patient remains significantly hypotensive following 4 liters of crystalloid infusion. She reportedly had another bm in the EMD that was dark maroon without clots. Following evaluation in the EMD and discussion with the EMD staff- patient was prepared for elective/urgent intubation and placement of central access immediately followed. She had rapid escalation of her vasopressor agents to central access to maintain MAPS >65. Overall her urine appears purulent with sediment- Lovelace was changed in EMD cultures are pending, she has increasing lactate level and leukocytosis in the 30s with elevated PCT presuming source urine/GI. Requested CT angio of her abdomen be performed for bleeding/ischemia as well- she was pre- treated with hydrocortisone and Benadryl. Random Cortisol was drawn prior to steroids and is 60. Continue with broad spectrum antibiotics, will add on second vasopressor agent for MAPS >65, correct acidosis as able, correct electrolyte derangements, follow her MARIA ELENA- currently she is making urine. Patient is critically ill with high risk of mortality- [place] II score of 23 with 46% predicted mortality. COVID test on arrival: NEGATIVE Allergies Allergy/AdvReac Type Severity Reaction Status Date / Time adhesive tape Allergy Unknown Unknown Verified 05/18/22 18:23 aspirin Allergy Unknown Unknown Verified 05/18/22 18:23 atorvastatin Allergy Unknown Unknown Verified 05/18/22 18:23 citalopram [From Celexa] Allergy Unknown Unknown Verified 05/18/22 18:23 Iodinated Contrast Media Allergy Unknown Unknown Verified 05/18/22 18:23 iodine Allergy Unknown Unknown Verified 05/18/22 18:23 latex Allergy Unknown Unknown Verified 05/18/22 18:23 sertraline [From Zoloft] Allergy Unknown Unknown Verified 05/18/22 18:23 Sulfa (Sulfonamide Allergy Unknown Unknown Verified 05/18/22 18:23 Antibiotics) ekg leads Allergy Unknown Unknown Uncoded 05/18/22 18:23 Home Medications Medication Instructions Recorded Confirmed Type acetaminophen 325 mg tablet 650 mg PO Q6 PRN Pain 03/20/22 05/18/22 History acetaminophen 325 mg tablet 650 mg PO Q6 PRN temp>101 03/20/22 05/18/22 History apixaban 5 mg tablet (Eliquis) 5 mg PO BID 03/20/22 05/18/22 History cholecalciferol (vitamin D3) 125 125 mcg PO DAILY 03/20/22 05/18/22 History mcg (5,000 unit) tablet (Vitamin D3) diltiazem HCl 180 mg 180 mg PO DAILY 03/20/22 05/18/22 History capsule,extended release 24 hr furosemide 40 mg tablet 40 mg PO DAILY 03/20/22 05/18/22 History gabapentin 100 mg capsule 200 mg PO DAILY 03/20/22 05/18/22 History lisinopril 10 mg tablet 10 mg PO DAILY 03/20/22 05/18/22 History pravastatin 40 mg tablet 40 mg PO DAILY 03/20/22 05/18/22 History sitagliptin phosphate 100 mg 100 mg PO DAILY 03/20/22 05/18/22 History tablet (Januvia) sotalol 80 mg tablet 80 mg PO BID 03/20/22 05/18/22 History trazodone 150 mg tablet 75 mg PO HS 03/20/22 05/18/22 History insulin glargine 100 unit/mL (3 15 unit (0.15 mL) subcut HS #15 mL 03/24/22 05/18/22 Rx mL) subcutaneous pen (Lantus Solostar U-100 Insulin) Boost Glucose Control 8 oz PO . AT BREAKFAST 05/18/22 05/18/22 History cyanocobalamin (vitamin B-12) 500 500 mcg PO Q OTHER DAY 05/18/22 05/18/22 History mcg tablet (Vitamin B-12) duloxetine 60 mg capsule,delayed 60 mg PO DAILY 05/18/22 05/18/22 History release (Cymbalta) tramadol 50 mg tablet 50 mg PO Q8H PRN pain level 6-10 05/18/22 05/18/22 History Patient History Medical History Acute UTI Depression with anxiety DM2 (diabetes mellitus, type 2) H/O: CVA (cerebrovascular accident) HLD (hyperlipidemia) HTN (hypertension) Neurogenic bladder Paroxysmal atrial fibrillation Surgical History H/O: hysterectomy Family History Other Heart disease Social History Smoking Status: Unknown if ever smoked Second Hand Exposure: No; Hx Alcohol Use: No Hx Substance Use: No Preferred Language: Portuguese Communication Ability: Effective Beliefs That Will Affect Care: None Current Living Situation: [facility] Feels Safe at Home: Yes Assistive Devices: Hospital Bed and Wheelchair Review of Systems Review of Systems: REVIEW OF SYSTEMS: Limited review secondary to patietn mentation + Abdominal pain, fatigue, weakness, she reports started getting worse this morning easily falls back to sleep while talking, and using accessory muscles to breath likely related to mental status as well as body habitus Physical Exam Physical Exam: PHYSICAL EXAM: General: obtunded awakens with verbal stimuli but falls back to sleep with questioning and exam Head: Normocephalic, atraumatic ENT: PERRL, mucous membranes dry with old blood noted on tongue, mouth and teeth Neuro: AAO x 2- Person/place, speech clear and appropriate, follows simple commands, strength unable to be tested does localize and withdrawals to painful stimuli Chest: equal rise and fall of the chest, use of accessory muscles, scattered rhonchi throughout decreased right base with end expiratory wheeze Cardiac: Regular rate and rhythm, telemetry reviewed- NSR no ectopy, skin cool and clammy, cap refill >3 seconds, peripheral pusles +1 no JVD, no murmur, no edema GI: NABS x 4 quadrants, soft and obese, diffuse abdominal pain, no guarding : Lovelace to gravity draining purulent urine Psych: Normal mood and affect Skin: sacrum with some redness that is blanchable no injury noted Results & Data Results & Data ([facility]) Vital Signs (Past 12 Hours) Vital Signs Temp Pulse Pulse Resp BP BP Pulse Ox 05/18/22 20:10 80 16 94 05/18/22 20:10 98/62 L 05/18/22 20:05 84/56 L 05/18/22 20:05 16 93 05/18/22 20:01 79 16 95 05/18/22 20:00 77 16 95 05/18/22 19:56 78 16 99 05/18/22 19:50 91/72 L 05/18/22 19:50 81 18 100 05/18/22 19:46 62 23 100 05/18/22 19:46 84/55 L 05/18/22 19:41 61 18 98 05/18/22 19:41 80/66 L 05/18/22 19:39 62 18 98 05/18/22 19:39 71/42 L 05/18/22 19:35 71/37 L 05/18/22 19:35 61 24 05/18/22 19:31 62 05/18/22 19:30 61 14 85 L 05/18/22 19:20 63 21 82 L 05/18/22 19:18 64 14 59 L 05/18/22 19:18 69/42 L 05/18/22 19:12 72 14 69 L 05/18/22 19:10 62 18 05/18/22 19:08 83/43 L 05/18/22 19:08 70 17 05/18/22 19:00 89 15 05/18/22 18:49 41/20 L 05/18/22 18:49 89 15 94 05/18/22 18:32 89 17 100 05/18/22 18:30 75 18 100 05/18/22 18:23 64 17 05/18/22 18:01 48/35 L 05/18/22 18:01 81 19 96 05/18/22 18:00 80 17 76 L 05/18/22 17:50 61/43 L 05/18/22 17:50 83 31 H 96 05/18/22 17:41 72 19 62/29 L 98 05/18/22 17:35 70 18 61/26 L 97 05/18/22 17:46 36.0 C L 71 34 H 62/29 L 98 05/18/22 17:37 36 C L 05/18/22 17:29 36 C L 70 18 97 05/18/22 17:09 97 05/18/22 17:02 97 05/18/22 17:07 58/39 L 05/18/22 17:07 70 20 60/40 L 98 05/18/22 17:03 76 10 L 97 05/18/22 16:30 36.6 C 76 8 L 58/39 L 97 05/18/22 16:58 69 O2 Del Method O2 Flow Rate 05/18/22 20:10 05/18/22 20:10 05/18/22 20:05 05/18/22 20:05 05/18/22 20:01 05/18/22 20:00 05/18/22 19:56 05/18/22 19:50 05/18/22 19:50 05/18/22 19:46 05/18/22 19:46 05/18/22 19:41 05/18/22 19:41 05/18/22 19:39 05/18/22 19:39 05/18/22 19:35 05/18/22 19:35 05/18/22 19:31 05/18/22 19:30 05/18/22 19:20 05/18/22 19:18 05/18/22 19:18 05/18/22 19:12 05/18/22 19:10 05/18/22 19:08 05/18/22 19:08 05/18/22 19:00 05/18/22 18:49 05/18/22 18:49 05/18/22 18:32 05/18/22 18:30 05/18/22 18:23 05/18/22 18:01 05/18/22 18:01 05/18/22 18:00 05/18/22 17:50 05/18/22 17:50 05/18/22 17:41 Nasal Cannula 2 05/18/22 17:35 Nasal Cannula 2 05/18/22 17:46 Nasal Cannula 2 05/18/22 17:37 05/18/22 17:29 05/18/22 17:09 Nasal Cannula 2 05/18/22 17:02 Nasal Cannula 2 05/18/22 17:07 05/18/22 17:07 Nasal Cannula 2 05/18/22 17:03 Nasal Cannula 2 05/18/22 16:30 Nasal Cannula 2 05/18/22 16:58 Laboratory Results Abnormal lab results 05/18/22 05/18/22 05/18/22 Range/Units 16:53 16:53 16:53 WBC 32.50 H* (4.8-10.8) K/ul Hgb (12.0-16.0) g/dl Hct (37.0-47.0) % MCV 77.5 L (80.0-100.0) fL Plt Count 499 H (130-400) K/uL Neut # (Auto) 26.96 H (1.40-6.50) K/uL Dixie # (Auto) 2.29 H (0.11-0.59) K/uL Immature Gran # (Auto) 1.55 H (0.01-0.20) K/uL PT 14.6 H (9.0-12.0) Seconds INR 1.4 H (0.9-1.1) APTT 39.4 H (21.0-31.0) Seconds POC pH (7.35-7.45) POC pCO2 (35-46) mmHg POC HCO3 (19-24) mando/L POC Base Excess (-9-1.8) mando/L ABG pH (7.35-7.45) ABG pO2 (80-95) mmHg ABG HCO3 (19-24) mmol/L ABG O2 Saturation (90-95) % ABG Base Excess (-9-1.8) mEq/L VBG pH (7.36-7.41) POC Sodium (135-144) mmol/L Sodium 127 L (136-145) mmol/L POC Chloride (101-112) mmol/L Chloride 93 L (98-107) mmol/L Carbon Dioxide 15 L (21-32) mmol/L POC Total CO2 (24-31) mmol/L Anion Gap 19 H (3-11) POC BUN (7-18) mg/dl BUN 85 H (6-23) mg/dl Creatinine 4.06 H (0.6-1.2) mg/dl POC Creatinine (0.6-1.3) mg/dl BUN/Creatinine Ratio 20.9 H (10-20) Glucose 188 H (70-99(Fasting)) mg/dl POC Glucose (70-99) mg/dl POC Glucose (other) (70-99) mg/dl Lactate (0.4-2.0) mmol/L Calcium 7.3 L (8.5-10.1) mg/dl POC Ioniz Calcium Kiki (1.12-1.32) mmol/l Phosphorus (2.5-4.9) mg/dl Magnesium 1.5 L (1.7-2.4) mg/dl Direct Bilirubin 0.4 H (0-0.2) mg/dl Troponin I High Sens 28.5 H (0-14) pg/ml Total Protein 5.3 L (6.0-8.3) gm/dl Albumin 2.3 L (3.4-5.0) gm/dl Lipase 5 L (11-82) U/L Procalcitonin (0-0.5) ng/ml Urine Appearance (Clear) Urine Protein (Negative) Urine Blood (Negative) Ur Leukocyte Esterase (Negative) Urine WBC (Auto) (0-5) /hpf Urine RBC (Auto) (0-4) /hpf U Hyaline Cast (Auto) (0-5) /lpf U Epithel Cells (Auto) (0-5) /lpf Urine Bacteria (Auto) (Negative) Urine Osmolality (500-800) mOsm/kg Crossmatch 05/18/22 05/18/22 05/18/22 Range/Units 16:53 16:53 16:53 WBC (4.8-10.8) K/ul Hgb (12.0-16.0) g/dl Hct (37.0-47.0) % MCV (80.0-100.0) fL Plt Count (130-400) K/uL Neut # (Auto) (1.40-6.50) K/uL Dixie # (Auto) (0.11-0.59) K/uL Immature Gran # (Auto) (0.01-0.20) K/uL PT (9.0-12.0) Seconds INR (0.9-1.1) APTT (21.0-31.0) Seconds POC pH (7.35-7.45) POC pCO2 (35-46) mmHg POC HCO3 (19-24) mando/L POC Base Excess (-9-1.8) mando/L ABG pH (7.35-7.45) ABG pO2 (80-95) mmHg ABG HCO3 (19-24) mmol/L ABG O2 Saturation (90-95) % ABG Base Excess (-9-1.8) mEq/L VBG pH (7.36-7.41) POC Sodium (135-144) mmol/L Sodium (136-145) mmol/L POC Chloride (101-112) mmol/L Chloride (98-107) mmol/L Carbon Dioxide (21-32) mmol/L POC Total CO2 (24-31) mmol/L Anion Gap (3-11) POC BUN (7-18) mg/dl BUN (6-23) mg/dl Creatinine (0.6-1.2) mg/dl POC Creatinine (0.6-1.3) mg/dl BUN/Creatinine Ratio (10-20) Glucose (70-99(Fasting)) mg/dl POC Glucose (70-99) mg/dl POC Glucose (other) (70-99) mg/dl Lactate 3.1 H* (0.4-2.0) mmol/L Calcium (8.5-10.1) mg/dl POC Ioniz Calcium Kiki (1.12-1.32) mmol/l Phosphorus 7.4 H (2.5-4.9) mg/dl Magnesium (1.7-2.4) mg/dl Direct Bilirubin (0-0.2) mg/dl Troponin I High Sens (0-14) pg/ml Total Protein (6.0-8.3) gm/dl Albumin (3.4-5.0) gm/dl Lipase (11-82) U/L Procalcitonin 2.55 H (0-0.5) ng/ml Urine Appearance (Clear) Urine Protein (Negative) Urine Blood (Negative) Ur Leukocyte Esterase (Negative) Urine WBC (Auto) (0-5) /hpf Urine RBC (Auto) (0-4) /hpf U Hyaline Cast (Auto) (0-5) /lpf U Epithel Cells (Auto) (0-5) /lpf Urine Bacteria (Auto) (Negative) Urine Osmolality (500-800) mOsm/kg Crossmatch 05/18/22 05/18/22 05/18/22 Range/Units 17:22 17:22 17:26 WBC (4.8-10.8) K/ul Hgb (12.0-16.0) g/dl Hct (37.0-47.0) % MCV (80.0-100.0) fL Plt Count (130-400) K/uL Neut # (Auto) (1.40-6.50) K/uL Dixie # (Auto) (0.11-0.59) K/uL Immature Gran # (Auto) (0.01-0.20) K/uL PT (9.0-12.0) Seconds INR (0.9-1.1) APTT (21.0-31.0) Seconds POC pH (7.35-7.45) POC pCO2 (35-46) mmHg POC HCO3 (19-24) mando/L POC Base Excess (-9-1.8) mando/L ABG pH (7.35-7.45) ABG pO2 (80-95) mmHg ABG HCO3 (19-24) mmol/L ABG O2 Saturation (90-95) % ABG Base Excess (-9-1.8) mEq/L VBG pH 7.21 L (7.36-7.41) POC Sodium 126 L (135-144) mmol/L Sodium (136-145) mmol/L POC Chloride 96 L (101-112) mmol/L Chloride (98-107) mmol/L Carbon Dioxide (21-32) mmol/L POC Total CO2 16 L (24-31) mmol/L Anion Gap (3-11) POC BUN 73 H (7-18) mg/dl BUN (6-23) mg/dl Creatinine (0.6-1.2) mg/dl POC Creatinine 4.5 H (0.6-1.3) mg/dl BUN/Creatinine Ratio (10-20) Glucose (70-99(Fasting)) mg/dl POC Glucose (70-99) mg/dl POC Glucose (other) 172 H (70-99) mg/dl Lactate (0.4-2.0) mmol/L Calcium (8.5-10.1) mg/dl POC Ioniz Calcium Kiki 0.84 L (1.12-1.32) mmol/l Phosphorus (2.5-4.9) mg/dl Magnesium (1.7-2.4) mg/dl Direct Bilirubin (0-0.2) mg/dl Troponin I High Sens (0-14) pg/ml Total Protein (6.0-8.3) gm/dl Albumin (3.4-5.0) gm/dl Lipase (11-82) U/L Procalcitonin (0-0.5) ng/ml Urine Appearance (Clear) Urine Protein (Negative) Urine Blood (Negative) Ur Leukocyte Esterase (Negative) Urine WBC (Auto) (0-5) /hpf Urine RBC (Auto) (0-4) /hpf U Hyaline Cast (Auto) (0-5) /lpf U Epithel Cells (Auto) (0-5) /lpf Urine Bacteria (Auto) (Negative) Urine Osmolality (500-800) mOsm/kg Crossmatch See Detail 05/18/22 05/18/22 05/18/22 Range/Units 19:32 19:32 19:32 WBC (4.8-10.8) K/ul Hgb 11.8 L (12.0-16.0) g/dl Hct 34.6 L (37.0-47.0) % MCV (80.0-100.0) fL Plt Count (130-400) K/uL Neut # (Auto) (1.40-6.50) K/uL Dixie # (Auto) (0.11-0.59) K/uL Immature Gran # (Auto) (0.01-0.20) K/uL PT (9.0-12.0) Seconds INR (0.9-1.1) APTT (21.0-31.0) Seconds POC pH (7.35-7.45) POC pCO2 (35-46) mmHg POC HCO3 (19-24) mando/L POC Base Excess (-9-1.8) mando/L ABG pH 7.13 L* (7.35-7.45) ABG pO2 35 L (80-95) mmHg ABG HCO3 12 L (19-24) mmol/L ABG O2 Saturation < 60.0 L (90-95) % ABG Base Excess -16.1 L (-9-1.8) mEq/L VBG pH (7.36-7.41) POC Sodium (135-144) mmol/L Sodium (136-145) mmol/L POC Chloride (101-112) mmol/L Chloride (98-107) mmol/L Carbon Dioxide (21-32) mmol/L POC Total CO2 (24-31) mmol/L Anion Gap (3-11) POC BUN (7-18) mg/dl BUN (6-23) mg/dl Creatinine (0.6-1.2) mg/dl POC Creatinine (0.6-1.3) mg/dl BUN/Creatinine Ratio (10-20) Glucose (70-99(Fasting)) mg/dl POC Glucose (70-99) mg/dl POC Glucose (other) (70-99) mg/dl Lactate 4.1 H* (0.4-2.0) mmol/L Calcium (8.5-10.1) mg/dl POC Ioniz Calcium Kiki (1.12-1.32) mmol/l Phosphorus (2.5-4.9) mg/dl Magnesium (1.7-2.4) mg/dl Direct Bilirubin (0-0.2) mg/dl Troponin I High Sens (0-14) pg/ml Total Protein (6.0-8.3) gm/dl Albumin (3.4-5.0) gm/dl Lipase (11-82) U/L Procalcitonin (0-0.5) ng/ml Urine Appearance (Clear) Urine Protein (Negative) Urine Blood (Negative) Ur Leukocyte Esterase (Negative) Urine WBC (Auto) (0-5) /hpf Urine RBC (Auto) (0-4) /hpf U Hyaline Cast (Auto) (0-5) /lpf U Epithel Cells (Auto) (0-5) /lpf Urine Bacteria (Auto) (Negative) Urine Osmolality (500-800) mOsm/kg Crossmatch 05/18/22 05/18/22 05/18/22 Range/Units 19:35 22:07 22:16 WBC (4.8-10.8) K/ul Hgb (12.0-16.0) g/dl Hct (37.0-47.0) % MCV (80.0-100.0) fL Plt Count (130-400) K/uL Neut # (Auto) (1.40-6.50) K/uL Dixie # (Auto) (0.11-0.59) K/uL Immature Gran # (Auto) (0.01-0.20) K/uL PT (9.0-12.0) Seconds INR (0.9-1.1) APTT (21.0-31.0) Seconds POC pH 7.05 L* (7.35-7.45) POC pCO2 54 H (35-46) mmHg POC HCO3 15 L (19-24) mando/L POC Base Excess -16.0 L (-9-1.8) mando/L ABG pH (7.35-7.45) ABG pO2 (80-95) mmHg ABG HCO3 (19-24) mmol/L ABG O2 Saturation (90-95) % ABG Base Excess (-9-1.8) mEq/L VBG pH (7.36-7.41) POC Sodium 129 L (135-144) mmol/L Sodium (136-145) mmol/L POC Chloride (101-112) mmol/L Chloride (98-107) mmol/L Carbon Dioxide (21-32) mmol/L POC Total CO2 12 L 16 L (24-31) mmol/L Anion Gap (3-11) POC BUN 62 H (7-18) mg/dl BUN (6-23) mg/dl Creatinine (0.6-1.2) mg/dl POC Creatinine 3.4 H (0.6-1.3) mg/dl BUN/Creatinine Ratio (10-20) Glucose (70-99(Fasting)) mg/dl POC Glucose 225 H (70-99) mg/dl POC Glucose (other) 161 H (70-99) mg/dl Lactate (0.4-2.0) mmol/L Calcium (8.5-10.1) mg/dl POC Ioniz Calcium Kiki 0.75 L* (1.12-1.32) mmol/l Phosphorus (2.5-4.9) mg/dl Magnesium (1.7-2.4) mg/dl Direct Bilirubin (0-0.2) mg/dl Troponin I High Sens (0-14) pg/ml Total Protein (6.0-8.3) gm/dl Albumin (3.4-5.0) gm/dl Lipase (11-82) U/L Procalcitonin (0-0.5) ng/ml Urine Appearance (Clear) Urine Protein (Negative) Urine Blood (Negative) Ur Leukocyte Esterase (Negative) Urine WBC (Auto) (0-5) /hpf Urine RBC (Auto) (0-4) /hpf U Hyaline Cast (Auto) (0-5) /lpf U Epithel Cells (Auto) (0-5) /lpf Urine Bacteria (Auto) (Negative) Urine Osmolality (500-800) mOsm/kg Crossmatch 05/18/22 05/18/22 Range/Units 22:20 22:20 WBC (4.8-10.8) K/ul Hgb (12.0-16.0) g/dl Hct (37.0-47.0) % MCV (80.0-100.0) fL Plt Count (130-400) K/uL Neut # (Auto) (1.40-6.50) K/uL Dixie # (Auto) (0.11-0.59) K/uL Immature Gran # (Auto) (0.01-0.20) K/uL PT (9.0-12.0) Seconds INR (0.9-1.1) APTT (21.0-31.0) Seconds POC pH (7.35-7.45) POC pCO2 (35-46) mmHg POC HCO3 (19-24) mando/L POC Base Excess (-9-1.8) mando/L ABG pH (7.35-7.45) ABG pO2 (80-95) mmHg ABG HCO3 (19-24) mmol/L ABG O2 Saturation (90-95) % ABG Base Excess (-9-1.8) mEq/L VBG pH (7.36-7.41) POC Sodium (135-144) mmol/L Sodium (136-145) mmol/L POC Chloride (101-112) mmol/L Chloride (98-107) mmol/L Carbon Dioxide (21-32) mmol/L POC Total CO2 (24-31) mmol/L Anion Gap (3-11) POC BUN (7-18) mg/dl BUN (6-23) mg/dl Creatinine (0.6-1.2) mg/dl POC Creatinine (0.6-1.3) mg/dl BUN/Creatinine Ratio (10-20) Glucose (70-99(Fasting)) mg/dl POC Glucose (70-99) mg/dl POC Glucose (other) (70-99) mg/dl Lactate (0.4-2.0) mmol/L Calcium (8.5-10.1) mg/dl POC Ioniz Calcium Kiki (1.12-1.32) mmol/l Phosphorus (2.5-4.9) mg/dl Magnesium (1.7-2.4) mg/dl Direct Bilirubin (0-0.2) mg/dl Troponin I High Sens (0-14) pg/ml Total Protein (6.0-8.3) gm/dl Albumin (3.4-5.0) gm/dl Lipase (11-82) U/L Procalcitonin (0-0.5) ng/ml Urine Appearance Turbid A (Clear) Urine Protein 1+ H (Negative) Urine Blood 3+ H (Negative) Ur Leukocyte Esterase 3+ H (Negative) Urine WBC (Auto) >30 H (0-5) /hpf Urine RBC (Auto) 10-30 H (0-4) /hpf U Hyaline Cast (Auto) 5-10 H (0-5) /lpf U Epithel Cells (Auto) >30 H (0-5) /lpf Urine Bacteria (Auto) 1+ H (Negative) Urine Osmolality 308 L (500-800) mOsm/kg Crossmatch Diagnostic Findings Chest X-Ray 05/18/22 17:03 XR chest 1V portable HISTORY: 66 years-old Female Sepsis acute sepsis COMPARISON: 03/20/2022 TECHNIQUE: AP view of the chest FINDINGS: Cardiac silhouette is enlarged. Pulmonary vascular congestion. No pneumothorax or large pleural effusion. Bones appear grossly intact. Degenerative changes of the shoulders and spine. The stomach IMPRESSION: Mild pulmonary vascular congestion. ACT 112: Negative or not required by law. The above report was generated using voice recognition software. It may contain grammatical, syntax or spelling errors. Electronically signed by: Magan Singer M.D. 05/18/2022 6:10 PM Abdomen/Pelvis CT 05/18/22 17:11 CT chest diagnostic wo con, CT abd pelvis wo con CLINICAL HISTORY: 66 years-old Female with sepsis hypotension. Acute sepsis with hypotension TECHNIQUE: Multiaxial CT images of the chest, abdomen and pelvis were performed without contrast. A dose lowering technique was utilized adhering to the principles of ALARA. COMPARISON: None. FINDINGS: CT CHEST: Cardiomegaly with mitral coronary arterial calcifications. No thoracic aortic aneurysm. Small moderate right pleural effusion. Unremarkable thyroid. No lymphadenopathy. Intralobular bronchial wall thickening with areas of mucous plugging. Mild dependent right basilar consolidation. Fluid-filled esophagus. Soft tissues and musculature. Degenerative changes of the shoulders and spine. CT ABDOMEN AND PELVIS: No pneumatosis or pneumoperitoneum. The unenhanced spleen, pancreas are within normal limits. Thickening of the genu glands suggestive of hyperplasia. Marginal nodularity. No adnexal masses identified. Distended gallbladder with possible sludge. There are 2 subcentimeter proteinaceous or hemorrhagic cyst of the superior pole left kidney. No hydronephrosis. Decompressed urinary bladder with Lovelace catheter. Atherosclerosis of the aorta. No lymphadenopathy. No bowel obstruction. Circumferential wall thickening is noted within the colon ascending from the mid transverse colon through the sigmoid and rectum with pericolonic and perirectal stranding and trace free fluid. Associated air-fluid levels appendix not visualized. No acute fracture. Degenerative changes of the spine, pelvis and hips. IMPRESSION: 1. Findings compatible with a nonspecific proctocolitis extending from the mid transverse colon distally. 2. Trace free pelvic fluid. 3. Small to moderate right pleural effusion with mild right basilar atelectasis. 4. Additional findings as above. ACT 112: Negative or not required by law. Electronically signed by: Magan Singer M.D. 05/18/2022 7:[address] 05/18/22 18:00 CT chest diagnostic wo con, CT abd pelvis wo con CLINICAL HISTORY: 66 years-old Female with sepsis hypotension. Acute sepsis with hypotension TECHNIQUE: Multiaxial CT images of the chest, abdomen and pelvis were performed without contrast. A dose lowering technique was utilized adhering to the principles of ALARA. COMPARISON: None. FINDINGS: CT CHEST: Cardiomegaly with mitral coronary arterial calcifications. No thoracic aortic aneurysm. Small moderate right pleural effusion. Unremarkable thyroid. No lymphadenopathy. Intralobular bronchial wall thickening with areas of mucous plugging. Mild dependent right basilar consolidation. Fluid-filled esophagus. Soft tissues and musculature. Degenerative changes of the shoulders and spine. CT ABDOMEN AND PELVIS: No pneumatosis or pneumoperitoneum. The unenhanced spleen, pancreas are within normal limits. Thickening of the genu glands suggestive of hyperplasia. Marginal nodularity. No adnexal masses identified. Distended gallbladder with possible sludge. There are 2 subcentimeter proteinaceous or hemorrhagic cyst of the superior pole left kidney. No hydronephrosis. Decompressed urinary bladder with Lovelace catheter. Atherosclerosis of the aorta. No lymphadenopathy. No bowel obstruction. Circumferential wall thickening is noted within the colon ascending from the mid transverse colon through the sigmoid and rectum with pericolonic and perirectal stranding and trace free fluid. Associated air-fluid levels appendix not visualized. No acute fracture. Degenerative changes of the spine, pelvis and hips. IMPRESSION: 1. Findings compatible with a nonspecific proctocolitis extending from the mid transverse colon distally. 2. Trace free pelvic fluid. 3. Small to moderate right pleural effusion with mild right basilar atelectasis. 4. Additional findings as above. ACT 112: Negative or not required by law. Electronically signed by: Magan Singer M.D. 05/18/2022 7:[address] 05/18/22 18:00 CT head/brain wo con CLINICAL HISTORY: 66 years-old Female with ams. Acutely altered mental status TECHNIQUE: Multiple axial CT images of the head were obtained without contrast. A dose lowering technique was utilized adhering to the principles of ALARA. CT DOSE: 2808.39 mGy.cm COMPARISON: None. FINDINGS: No acute intracranial hemorrhage, midline shift, intracranial mass, hydrocephalus, territorial ischemia or abnormal extra-axial collection. Mild involutional changes with mild white matter hypodensities suggestive of chronic microvascular ischemic disease. There are several small ill-defined hypodense foci noted within the left frontal lobe centrum semiovale measuring up to approximately 1.5 cm.. Mildly motion degraded exam. The calvarium is intact. Prior bilateral lens repair. The paranasal sinuses, mastoid air cells, and middle ear cavities are clear. IMPRESSION: 1. No acute intracranial hemorrhage, midline shift or acute territorial infarct. 2. Suggestion of mild chronic microvascular ischemic disease. 3. Small ill-defined hypodense foci within the left frontal lobe centrum semiovale likely represent age-indeterminate lacunar infarcts. ACT 112: Negative or not required by law. The above report was generated using voice recognition software. It may contain grammatical, syntax or spelling errors. Electronically signed by: Magan Singer M.D. 05/18/2022 7:05 PM Abdomen/Pelvis CTA 05/18/22 19:34 CT angio abdomen pelvis w con CLINICAL HISTORY: 66 years-old Female with GI bleed acute GI bleed COMPARISON STUDY: CT abdomen and pelvis of same day at 6:13 PM, chest radiograph of same day 17 p.m. TECHNIQUE: Following the IV administration of Optiray, CT angiogram of the abd omen and pelvis was performed from the lung bases the proximal femora. Images are reviewed in the axial, sagittal, and coronal planes. 3-D MIPS images are created and assessed. All measurements were obtained according to NASCET criteria. IV contrast was administered without complication. A dose lowering technique was utilized adhering to the principles of ALARA. CT DOSE: 1434.58 mGy.cm FINDINGS: Motion degraded exam. CTA: Moderate atherosclerosis of the abdominal aorta and branch vessels. Patent celiac trunk. Superior mesenteric arteries widely patent. Diminutive inferior mesenteric artery is patent. There is no evidence of active extravasation. Iliac arteries are diminutive and patent. CT ABDOMEN/PELVIS: Cardiomegaly. Endotracheal tube is noted terminating above the level the varun. Right IJ central venous catheter. Right basilar atelectasis with small to moderate right pleural effusion unchanged right hemidiaphragmatic elevation. No pneumatosis or pneumoperitoneum. The spleen and pancreas are within normal limits. Thickening of the adrenal glands suggestive of hyperplasia again noted with hyperattenuation. Mild marginal nodularity of the liver again noted. No hepatic mass identified. Distended gallbladder with possible sludge. Focal area of ill-defined heterogeneity within the superior pole left kidney overall measures 2.4 cm on image 134. The previously described proteinaceous or hemorrhagic subcentimeter cyst. Punctate calcifications of the left kidney again noted. No hydronephrosis. Unremarkable appearance of the right kidney. Decompressed urinary bladder with Lovelace catheter. No lymphadenopathy. Distal tip of enteric tube terminates within the mid stomach which is mildly distended. No bowel obstruction. Circumferential wall thickening with mucosal hyperemia is again noted within the colon ascending from the mid transverse colon through the sigmoid and rectum with pericolonic and perirectal stranding and trace free fluid. Layering hyperdense material is again noted within the distal colon suggestive of dizziness. Associated air-fluid levels appendix not visualized. No acute fracture. Degenerative changes of the spine, pelvis and hips. IMPRESSION: 1. Atherosclerosis. No arterial occlusion or evidence of active extravasation identified. 2. Findings compatible with a nonspecific proctocolitis extending from the mid transverse colon distally. 3. Trace free pelvic fluid. 4. Small to moderate right pleural effusion with mild right basilar atelectasis. 5. Lines and tubes as above. 6. Hyperattenuation of the adrenal glands can be associated with hypovolemia. ACT 112: Negative or not required by law. The above report was generated using voice recognition software. It may contain grammatical, syntax or spelling errors. Electronically signed by: Magan Singer M.D. 05/18/2022 9:49 PM Chest X-Ray 05/18/22 19:51 XR chest 1V portable HISTORY: 66 years-old Female s/p intubation and central line status post placement of an endotracheal tube COMPARISON: Chest CT of same day TECHNIQUE: AP view the chest FINDINGS: Status post placement of a right IJ central venous catheter distal tip in the expected location of the mid SVC. Endotracheal tube terminates 2.5 cm superior to the varun. Enteric tube terminates within the stomach which is mildly distended. Cardiomegaly. Moderate hemidiaphragmatic elevation. Small to moderate right pleural effusion with right basilar atelectasis. Pulmonary vascular congestion. No pneumothorax. IMPRESSION: 1. Lines and tubes as above. 2. No pneumothorax. 3. Unchanged right hemidiaphragmatic elevation with small to moderate right pleural effusion. 4. Pulmonary vascular congestion. ACT 112: Negative or not required by law. The above report was generated using voice recognition software. It may contain grammatical, syntax or spelling errors. Electronically signed by: Magan Singer M.D. 05/18/2022 8:38 PM Medications Administered Home Medications acetaminophen 325 mg tablet 650 mg PO Q6 PRN Pain 03/20/22 [History Confirmed 05/18/22] acetaminophen 325 mg tablet 650 mg PO Q6 PRN temp>101 03/20/22 [History Confirmed 05/18/22] apixaban 5 mg tablet (Eliquis) 5 mg PO BID 03/20/22 [History Confirmed 05/18/22] cholecalciferol (vitamin D3) 125 mcg (5,000 unit) tablet (Vitamin D3) 125 mcg PO DAILY 03/20/22 [History Confirmed 05/18/22] diltiazem HCl 180 mg capsule,extended release 24 hr 180 mg PO DAILY 03/20/22 [History Confirmed 05/18/22] furosemide 40 mg tablet 40 mg PO DAILY 03/20/22 [History Confirmed 05/18/22] gabapentin 100 mg capsule 200 mg PO DAILY 03/20/22 [History Confirmed 05/18/22] lisinopril 10 mg tablet 10 mg PO DAILY 03/20/22 [History Confirmed 05/18/22] pravastatin 40 mg tablet 40 mg PO DAILY 03/20/22 [History Confirmed 05/18/22] sitagliptin phosphate 100 mg tablet (Januvia) 100 mg PO DAILY 03/20/22 [History Confirmed 05/18/22] sotalol 80 mg tablet 80 mg PO BID 03/20/22 [History Confirmed 05/18/22] trazodone 150 mg tablet 75 mg PO HS 03/20/22 [History Confirmed 05/18/22] insulin glargine 100 unit/mL (3 mL) subcutaneous pen (Lantus Solostar U-100 Insulin) 15 unit (0.15 mL) subcut HS #15 mL 03/24/22 [Rx Confirmed 05/18/22] Boost Glucose Control 8 oz PO . AT BREAKFAST 05/18/22 [History Confirmed 05/18/22] cyanocobalamin (vitamin B-12) 500 mcg tablet (Vitamin B-12) 500 mcg PO Q OTHER DAY 05/18/22 [History Confirmed 05/18/22] duloxetine 60 mg capsule,delayed release (Cymbalta) 60 mg PO DAILY 05/18/22 [History Confirmed 05/18/22] tramadol 50 mg tablet 50 mg PO Q8H PRN pain level 6-10 05/18/22 [History Confirmed 05/18/22] Active Medications Diphenhydramine HCl (Diphenhydramine 50 Mg/Ml Vial) 50 mg IV ONE ONE Stop: 05/18/22 23:39 Fentanyl Citrate (Fentanyl Bolus From Bag) 50 mcg IV Q1H PRN PRN Reason: Pain or Agitation Stop: 06/01/22 19:48 Sodium Chloride (Nss) 250 mls @ 15 mls/hr IV .[id number] PRN PRN Reason: For Transfusion Duration Stop: 05/19/22 03:05 Norepinephrine Bitartrate (Levophed/D5w) 4 mg in 250 mls @ 17.044 mls/hr IV .[id number] TIERA; Protocol Stop: 06/17/22 18:14 Last Titration: 05/18/22 20:04 Dose: 0.32 mcg/kg/min, 109 mls/hr Midazolam HCl (Versed) 125 mg in 250 mls @ 2 mls/hr IV .Q96H PRN; Protocol PRN Reason: Sedation Stop: 06/17/22 19:43 Last Admin: 05/18/22 20:03 Dose: 1 mg/hr, 2 mls/hr Fentanyl Citrate (Fentanyl Citrate) 2,500 mcg in 250 mls @ 2.5 mls/hr IV .Q96H TIERA; Protocol Stop: 06/01/22 19:59 Last Admin: 05/18/22 20:03 Dose: 25 mcg/hr, 2.5 mls/hr Vasopressin 20 units/ Sodium (Chloride) 101 mls @ 12.12 mls/hr IV .Q8H20M TIERA Stop: 06/17/22 21:29 Pantoprazole Sodium 40 mg/ (Dextrose) 100 mls @ 20 mls/hr IV Q5H TIERA Stop: 06/17/22 22:29 Sodium Bicarbonate 110 meq/ (Sterile Water) 1,110 mls @ 110 mls/hr IV .Q10H6M TIERA Stop: 06/17/22 22:44 Last Admin: 05/18/22 22:59 Dose: 110 mls/hr Piperacillin Sod/Tazobactam (Sod 4.5 gm/ Dextrose) 120 mls @ 30 mls/hr IV Q8H TIERA; Protocol Stop: 05/28/22 22:44 Midazolam HCl (Midazolam Bolus From Bag) 1 mg IV Q1H PRN PRN Reason: Sedation Stop: 06/17/22 19:45 Miscellaneous Information (Vancomycin Consult Active) 1 each N/A UD PRN PRN Reason: Consult Stop: 06/17/22 18:42 Raspberry (Raspberry Syrup 5 Ml Udp) 5 ml PO Q6 TIERA Stop: 05/29/22 05:59 Vancomycin HCl (Vancomycin Hcl 125 Mg/2.5ml Soln) 125 mg PO Q6 TIERA Stop: 05/29/22 05:59 ECG Additional Comments: Sinus rhythm with 1st degree A-V block Low voltage QRS Cannot rule out Anterior infarct (cited on or before 24-MAR-2022) Prolonged QT Abnormal ECG When compared with ECG of 24-MAR-2022 05:58, Premature ventricular complexes are no longer Present Questionable change in initial forces of Anterior leads QT has lengthened Coding Level of Care Code Critical Care 1st 30-74 mins Diagnoses Colitis K52.9 Septic shock A41.9; R65.21 High anion gap metabolic acidosis E87.29 MARIA ELENA (acute kidney injury) N17.9 Hyponatremia E87.1 Respiratory failure with hypoxia J96.91 GI bleed K92.2 HTN (hypertension) I10 HLD (hyperlipidemia) E78.5 DM2 (diabetes mellitus, type 2) E11.9 Neurogenic bladder N31.9 Paroxysmal atrial fibrillation I48.0
--- NOTE | 2022-05-18 20:30 | Procedure Note ---
Procedure Note Date of Service May 18, 2022 Note INTERNAL JUGULAR CENTRAL LINE PROCEDURE NOTE: Procedure: Internal Jugular Central Line Placement Proceduralist: Jason ESPINO ([facility]) Attending: Dr. SIMON Indication: Central Drug Administration, Poor Venous Access, Multiple Lab Draws Necessary, etc. Anesthesia: [x]None x Consent was implied as patient acute illness and full code with emergent need for vasopressor agents and multiple IV lines. Patients RIGHT Neck was cleansed and draped in the typical sterile fashion using Chloraprep. The Internal Jugular Vein and Carotid Artery were identified using ultrasound. Under direct visualization with the ultrasound, the Internal Jugular vein was cannulated using an introducer needle on a syringe. Good venous blood return was maintained prior to removal of syringe from introducer needle. Using Seldinger Technique, a guide wire was advanced through the introducer needle without resistance. The introducer needle was removed and ultrasound images were obtained of the guide wire within the Internal Jugular Ve in. A small incision was made in penetrating fashion at the guide wire insertion site utilizing an 11 blade scalpel. The dilator was advanced to the vessel without resistance. The dilator was exchanged for the triple lumen catheter which was advanced into the vessel without resistance. The guide wire was removed intact from the catheter without issue. Claves were placed on each catheter tip with confirmation of good blood flow from each lumen. Each port was easily flushed with sterile saline. The catheter was withdrawn slightly secondary to ectopy and placed at 16 cm and sut[address] in place. BioPatch was applied to the catheter and a sterile Tegaderm dressing was applied over the catheter with careful attention to sterility. Patient tolerated procedure well. No immediate complications were met. Post procedure x-ray was completed, placement was appropriate and no pneumothorax was noted. Images were not saved for permanent record secondary to emergent need Procedural Ultrasound Guidance: Procedure Date: 05/18/22 Indication: Placment of Central Line Proceduralist: Jason ESPINO ([facility]) Attending: Dr. SIMON Artery AND Vein visualized: YES Compressible Vein: YES Guidewire or Short Catheter seen in vein prior to dilation: YES Images were not saved for permanent record secondary to emergent need. Coding CPT Codes Tubes, Drains, and Vasc Access - Tubes, Drains, and Vasc Access: [id number] Place catheter in vein superior or inferior vena cava ([id number]) Tubes, Drains, and Vasc Access - Tubes, Drains, and Vasc Access: [id number] Ultrasound Guidance For Vascular ([id number]) [facility] Procedure Codes (Charges) Tubes, Drains, and Vasc Access Procedure 1: Tubes, Drains, and Vasc Access: [id number] Place catheter in vein superior or inferior vena cava Procedure 2: Tubes, Drains, and Vasc Access: [id number] Ultrasound Guidance For Vascular
--- NOTE | 2022-05-18 20:31 | Procedure Note ---
Procedure Note Date of Service May 18, 2022 Note ARTERIAL LINE PROCEDURE NOTE: Procedure: Arterial Line Placement Proceduralist: Jason ESPINO ([facility]) Attending: Dr. SIMON Indication: Monitoring on Pressors Anesthesia: [X]None Emergent Consent was implied as patient full code requiring rapid escalating vasopressors in the setting of shock. Site was scouted prior with ultrasound after identification of target radial artery, positioning and equipment was obtained. Allens test was performed to ensure adequate perfusion. Patients LEFT wrist was prepped and draped in the usual sterile fashion. Ultrasound guidance was used to aid needle placement. A 20g Arrow arterial line was introduced into the LEFT RADIAL artery, brisk flash of blood was obtained, the wire was advanced without resistance and the Catheter was threaded, and the needle was removed with appropriate blood return. Good waveform was observed. The patient tolerated the procedure well. Attempts #1 line was secured with suture and covered with Tegaderm. Blood Loss: Minimal Complications: No immediate complications noted Procedural Ultrasound Guidance: Procedure Date: 05/17/22 Indication: Direct ultrasound guidance for arterial access Proceduralist: Jason ESPINO ([facility]) Attending: Dr. SIMON Artery Identified: YES Needle confirmed in artery: Yes prior to wire advancement Complications: NONE Patient tolerated procedure: WELL Coding CPT Codes Tubes, Drains, and Vasc Access - Tubes, Drains, and Vasc Access: [id number] Arterial Cath/Cannulation Sampling/Monitoring/Transfusion ([id number]) Tubes, Drains, and Vasc Access - Tubes, Drains, and Vasc Access: [id number] Ultrasound Guidance For Vascular ([id number]) [facility] [place] (Charges) Tubes, Drains, and Vasc Access Procedure 1: Tubes, Drains, and Vasc Access: [id number] Arterial Cath/Cannulation Sampling/Monitoring/Transfusion Procedure 2: Tubes, Drains, and Vasc Access: [id number] Ultrasound Guidance For Vascular
--- NOTE | 2022-05-18 20:39 | XRay Report ---
XR chest 1V portable HISTORY: 66 years-old Female s/p intubation and central line status post placement of an endotrachea l tube COMPARISON: Chest CT of same day TECHNIQUE: AP view the chest FINDINGS: Status post placement of a right IJ central venous catheter distal tip in the expected location of th e mid SVC. Endotracheal tube terminates 2.5 cm superior to the varun. Enteric tube terminates within the stomach which is mildly distended. Cardiomegaly. Moderate hemidiaphragmatic elevation. Small to moderate right pleural effusion with right basilar atelectasis. Pulmonary vascular congestion. No pne umothorax. IMPRESSION: 1. Lines and tubes as above. 2. No pneumothorax. 3. Unchanged right hemidiaphragmatic elevation with small to moderate right pleural effusion. 4. Pulmonary vascular congestion. ACT 112: Negative or not required by law. The above report was generated using voice recognition software. It may contain grammatical, syntax o r spelling errors. Electronically signed by: Magan Singer M.D. 05/18/2022 8:38 PM
[2022-05-18] MEDS ORDERED: OPTIRAY 320 500ml IV ONE (21:20)
--- NOTE | 2022-05-18 21:52 | CT Scan Report ---
CT angio abdomen pelvis w con CLINICAL HISTORY: 66 years-old Female with GI bleed acute GI bleed COMPARISON STUDY: CT abdomen and pelvis of same day at 6:13 PM, chest radiograph of same day 17 p.m. TECHNIQUE: Following the IV administration of Optiray, CT angiogram of the abdomen and pelvis was per formed from the lung bases the proximal femora. Images are reviewed in the axial, sagittal, and coron al planes. 3-D MIPS images are created and assessed. All measurements were obtained according to NASC ET criteria. IV contrast was administered without complication. A dose lowering technique was utiliz ed adhering to the principles of ALARA. CT DOSE: 1434.58 mGy.cm FINDINGS: Motion degraded exam. CTA: Moderate atherosclerosis of the abdominal aorta and branch vessels. Patent celiac trunk. Superior mes enteric arteries widely patent. Diminutive inferior mesenteric artery is patent. There is no evidence of active extravasation. Iliac arteries are diminutive and patent. CT ABDOMEN/PELVIS: Cardiomegaly. Endotracheal tube is noted terminating above the level the varun. Right IJ central shane ous catheter. Right basilar atelectasis with small to moderate right pleural effusion unchanged right hemidiaphragmatic elevation. No pneumatosis or pneumoperitoneum. The spleen and pancreas are within normal limits. Thickening of t he adrenal glands suggestive of hyperplasia again noted with hyperattenuation. Mild marginal nodulari ty of the liver again noted. No hepatic mass identified. Distended gallbladder with possible sludge. Focal area of ill-defined heterogeneity within the superior pole left kidney overall measures 2.4 cm on image 134. The previously described proteinaceous or hemorrhagic subcentimeter cyst. Punctate calc ifications of the left kidney again noted. No hydronephrosis. Unremarkable appearance of the right ki dney. Decompressed urinary bladder with Milan catheter. No lymphadenopathy. Distal tip of enteric tube terminates within the mid stomach which is mildly dist ended. No bowel obstruction. Circumferential wall thickening with mucosal hyperemia is again noted wi thin the colon ascending from the mid transverse colon through the sigmoid and rectum with pericoloni c and perirectal stranding and trace free fluid. Layering hyperdense material is again noted within t he distal colon suggestive of dizziness. Associated air-fluid levels appendix not visualized. No acut e fracture. Degenerative changes of the spine, pelvis and hips. IMPRESSION: 1. Atherosclerosis. No arterial occlusion or evidence of active extravasation identified. 2. Findings compatible with a nonspecific proctocolitis extending from the mid transverse colon dista lly. 3. Trace free pelvic fluid. 4. Small to moderate right pleural effusion with mild right basilar atelectasis. 5. Lines and tubes as above. 6. Hyperattenuation of the adrenal glands can be associated with hypovolemia. ACT 112: Negative or not required by law. The above report was generated using voice recognition software. It may contain grammatical, syntax o r spelling errors. Electronically signed by: Magan Singer M.D. 05/18/2022 9:49 PM
[2022-05-18] MEDS ORDERED: SODIUM BICARB 8.4% INJ 50 MEQ/50 ML SYR IV ONE (21:56)
[2022-05-18] MEDS ORDERED: RASPBERRY SYRUP 5 ML UDP PO STA (22:17)
[2022-05-18] MEDS ORDERED: DEXTROSE 5% IV STA (22:17)
[2022-05-18] MEDS ORDERED: HYDROCORTISONE SOD SUCCINATE 100 MG/2 ML VIAL IV STA (22:17)
[2022-05-18] MEDS ORDERED: VANCOMYCIN HCL 125 MG/2.5ML SOLN PO STA (22:17)
[2022-05-18] MEDS ORDERED: CALCIUM CHLORIDE IV STA (22:17)
[2022-05-18] MEDS ORDERED: PANTOPRAZOLE BOLUS/DRIP 1 EACH IV STA (22:17)
[2022-05-18 22:21] LABS: iSTAT Arterial Blood Gas HCO3 15 meg/L (19-24); iSTAT Arterial Blood Gas pCO2 54 mmHg (35-46); iSTAT Arterial Blood Gas pH 7.05 (7.35-7.45); iSTAT Arterial Blood Gas pO2 88 mmHg (80-95); iSTAT Carbon Dioxide 16 mmol/L (24-31); iSTAT FiO2 40 %; iSTAT Site Art Line
[2022-05-18] MEDS ORDERED: PANTOprazole 80 MG in DEXTROSE 5% 100 ML IV STA (22:30)
[2022-05-18] MEDS ORDERED: SODIUM BICARB 8.4% INJ 50 MEQ/50 ML SYR IV STA (22:32)
[2022-05-18 22:41] LABS: Appearance Urine Turbid (Clear); Bacteria Urine Automated 1+ (Negative); Bilirubin Urine Negative (Negative); Blood Urine 3+ (Negative); Color Urine Yellow; Epithelial Cell Urine Auto >30 /lpf (0-5); Glucose Urine UA Negative (Negative); Ketones Urine Negative (Negative); Leukocyte Esterase Urine 3+ (Negative); Nitrite Urine Negative (Negative); Protein Urine 1+ (Negative); Urobilinogen Urine Negative (Negative); WBC Urine Automated >30 /hpf (0-5)
[2022-05-18] MEDS ORDERED: STERILE IV SCH (22:45)
[2022-05-18] MEDS ORDERED: SODIUM BICARBONATE IV SCH (22:45)
[2022-05-18] MEDS ORDERED: WATER IV SCH (22:45)
[2022-05-18] MEDS: VASOPRESSIN 20 UNITS in 0.9 % SODIUM CHLORIDE 100 ML IV SCH (23:17)
[2022-05-18] MEDS: PANTOprazole 40 MG in DEXTROSE 5% 100 ML IV SCH (23:20)
[2022-05-18 23:22] LABS: BUN Creatinine Ratio 23.5 (10-20); Calcium 12.4 mg/dl (8.5-10.1); Creatinine Clr Calc Pharmacy 17.9 ml/min; Est GFR (African American) 16.7 ml/min; Est GFR (Non-African American) 14.4 ml/min; Potassium 3.7 mmol/L (3.5-5.1)
[2022-05-18] MEDS ORDERED: GLUCOSE 10 TAB/TUBE PO PRN (23:36)
[2022-05-18] MEDS ORDERED: CARBOHYDRATES FOR HYPOGLYCEMIA PO PRN (23:36)
[2022-05-18] MEDS ORDERED: DEXTROSE 50% 50 ML SYRINGE IV PRN (23:36)
[2022-05-18] MEDS ORDERED: GLUCAGON FOR INJ 1 MG VIAL SQ PRN (23:36)
[2022-05-18] MEDS ORDERED: GLUCOSE 40% GEL 15 GM TUBE PO PRN (23:36)
[2022-05-18] MEDS ORDERED: diphenhydrAMINE 50 MG/ML VIAL IV ONE (23:38)
[2022-05-18] MEDS: PIPERACILLIN/TAZOBACTAM 4.5 GM in DEXTROSE 5% 100 ML IV SCH (23:54)
[2022-05-19] MEDS: MAGNESIUM SULFATE / D5W 1 GM/100 ML BAG IV SCH ×2 (01:54→04:44)
[2022-05-19] MEDS: NOREPINEPHRINE/D5W 4 MG/250 ML PLCT IV SCH ×6 (02:29→18:12)
[2022-05-19 04:20] LABS: iSTAT Arterial Blood Gas HCO3 18 meg/L (19-24); iSTAT Arterial Blood Gas pCO2 45 mmHg (35-46); iSTAT Arterial Blood Gas pO2 82 mmHg (80-95); iSTAT Carbon Dioxide 19 mmol/L (24-31); iSTAT FiO2 40 %; iSTAT Site Art Line
[2022-05-19] MEDS: PANTOprazole 40 MG in DEXTROSE 5% 100 ML IV SCH (04:45)
[2022-05-19] MEDS: VANCOMYCIN HCL 125 MG/2.5ML SOLN PO SCH ×4 (05:36→23:22)
[2022-05-19] MEDS: VASOPRESSIN 20 UNITS in 0.9 % SODIUM CHLORIDE 100 ML IV SCH ×3 (05:54→21:09)
[2022-05-19] MEDS: RASPBERRY SYRUP 5 ML UDP PO SCH ×4 (05:54→23:22)
[2022-05-19] MEDS ORDERED: STAT IV STA ×2 (06:29→08:43)
[2022-05-19 06:36] LABS: BUN Creatinine Ratio 26.9 (10-20); Bilirubin Direct 0.2 mg/dl (0-0.2); Bilirubin,Total 0.6 mg/dl (0.2-1.0); Calcium 7.4 mg/dl (8.5-10.1); Creatinine Clr Calc Pharmacy 21.1 ml/min; Est GFR (African American) 20.4 ml/min; Est GFR (Non-African American) 17.6 ml/min; Magnesium 2.6 mg/dl (1.7-2.4); Phosphorus 6.2 mg/dl (2.5-4.9); Total Protein 4.9 gm/dl (6.0-8.3)
[2022-05-19] MEDS ORDERED: INSULIN PROTOCOL GOAL RANGE SCH (06:45)
[2022-05-19 06:47] LABS: Hematocrit (blood only) 43.6 % (37.0-47.0); Hemoglobin 14.7 g/dl (12.0-16.0); Mean Corpuscular Hemoglobin 27.1 pg (25.0-34.0); Mean Corpuscular Hgb Conc 33.7 g/dL (32.0-36.0); Mean Corpuscular Volume 80.3 fL (80.0-100.0); Mean Platelet Volume 10.3 fL (9.4-12.4); Nucleated RBC # (auto) 0.02 K/uL (0-0.12); Platelet Count 536 K/uL (130-400); RDW Coefficient of Variation 13.6 % (11.5-14.5); RDW Standard Deviation 39.5 fL (36.4-46.3); Red Blood Count 5.43 M/uL (4.20-5.40); White Blood Count 45.64 K/ul (4.8-10.8)
[2022-05-19] MEDS ORDERED: NORMOSOL-R 250 ML IV ONE (06:48)
[2022-05-19 06:49] LABS: Basophils # (auto) 0.02 K/uL (0-0.2); Echinocytes 2+; Eosinophils # (auto) 0.14 K/uL (0-0.50); Eosinophils % (auto) 0.3 %; Immature Granulocytes # (auto) 2.35 K/uL (0.01-0.20); Immature Granulocytes % (auto) 5.1 %; Lymphocytes # (auto) 1.64 K/uL (1.2-3.4); Lymphocytes % (auto) 3.6 %; Monocytes # (auto) 2.64 K/uL (0.11-0.59); Monocytes % (auto) 5.8 %; Neutrophils # (auto) 38.85 K/uL (1.40-6.50); Neutrophils % (auto) 85.2 %; Polychromasia 1+; Toxic Granulation 1+; Toxic Vacuolation 1+
[2022-05-19] MEDS ORDERED: NovoLIN-R BOLUS FROM BAG IV ONE (07:00)
[2022-05-19] MEDS ORDERED: INSULIN REGULAR 250 UNITS in SODIUM CHLORIDE 0.9% 247.5 ML IV SCH (07:00)
[2022-05-19] MEDS: ICU ELECTROLYTE REPLACEMENT PROTOCOL SCH ×3 (07:14→19:02)
--- NOTE | 2022-05-19 07:55 | XRay Report ---
SINGLE VIEW CHEST CLINICAL HISTORY: Respiratory failure. FINDINGS: 2 AP, portable, upright chest radiographs are compared to chest x-ray and chest CT dated . The examination is severely degraded by portable technique and patient rotation. Endotrachea l tube, an enteric tube, and a right internal jugular central venous catheter are unchanged in positi on. The heart is enlarged. Pulmonary vascular congestion persists. There is a right pleural effusion and bibasilar atelectasis. No pneumothorax is seen. The skeletal structures are osteopenic. The bony thorax is grossly intact. IMPRESSION: 1. Stable lines and tubes. 2. Pulmonary vascular congestion persists. 3. Right pleural effusion. ACT 112: Negative or not required by law. Electronically signed by: Santino Funk M.D. 05/19/2022 7:54 AM
--- NOTE | 2022-05-19 08:00 | Critical Care Progress Note ---
Date of Service May 19, 2022 Assessment & Plan (1) Severe sepsis with septic shock: (2) Acute respiratory failure with hypoxia: (3) Acute renal failure: (4) DM2 (diabetes mellitus, type 2): (5) Paroxysmal atrial fibrillation: Plan Impression: 66-year-old female with morbid obesity, chronic indwelling Milan, previous stroke with neurological sequelae admitted with severe sepsis with septic shock, acute renal failure, respiratory failure, acidosis with evidence of colitis. 24-hour events: Patient presented to the emergency room. She received fluids antibiotics. Should her blood pressures were unresponsive and pressors were ini tiated. Central and arterial line was placed. She had progressive acidosis necessitating intubation. She is continued to require resuscitation overnight. She did receive steroids overnight as a premedication for presumed contrast allergy Recommendations: 1. Neurologic: Continue sedation with fentanyl and Versed until the patient is hemodynamically appropriate for assessment of ventilator liberation. Patient was obtunded at the time of intubation likely secondary to metabolic encephalopathy. CT head on presentation showed no acute abnormality 2. Cardiovascular: Severe sepsis with septic shock. Currently requiring vasopressin and norepinephrine. Random cortisol was normal. She was not responsive to passive leg raise so I do not think she will respond to additional fluids. Troponin likely elevated secondary to supply demand mismatch. No evidence of ischemia on EKG. Check echocardiogram. May benefit from albumin administration 3. Pulmonary: Hypercapnic respiratory failure. Continue mechanical ventilation for now. Current settings: Assist-control, 21, 300, 0.4 and 5. Maintain tidal volume at 6 cc/kg. We will bump respiratory rate to compensate for metabolic acidosis. Oxygenation is adequate however she may benefit from a slightly increased PEEP. Small pleural effusion does not require intervention currently. Patient's morbid obesity places her at an increased risk for potential sleep disordered breathing and may need to extubate to BiPAP. 4. GI: Pancolitis. Await C. difficile. Keep n.p.o. for now. Initial concern about GI bleeding but this appears to be secondary and her hemoglobins been stable. Decrease Protonix to 40 mg IV twice daily dosing. Keep n.p.o. given pressor requirements. Distended gallbladder on imaging however AST ALT and alk phos all normal. 5. Renal: Acute renal failure, likely prerenal although cannot exclude component of ATN as well. Improved over the last 24 hours. Urine output improving. Multifactorial severe acidosis. Hyponatremia with hypocalcemia and hyperphosphatemia. Calcium will be replaced. Currently on a bicarb drip. Repeat blood gas with alterations in her respiratory rate and may require additional bicarb. Kidney function fails to improve, may require nephrology input. 6. ID: Presumed colitis with possible secondary translocation. Cannot exclude C. difficile. White count severely elevated today. Day #2 vancomycin and Zosyn. Pharmacy to dose. Given her renal function, will decrease her PIP Tazo to 2.25 g IV every 12. Await cultures 7. Endocrine: Initiation of insulin drip for glycemic control. Random cortisol was normal 8. Heme-onc: Marked leukocytosis secondary to infection. Platelets elevated secondary to underlying infection. Continue to follow 9. I was able to reach the patient's sister, Yelitza Perez who is the point of contact and proxy decision-maker. She has an advanced directive for the patient but is unclear what it says. She and her are on their way in and should be here in several hours. We will update them at bedside once they are available. Total of 120 minutes in critical care time was spent in evaluation management stabilization of this patient including discussion with family, and bedside nursing. Admission and Anticipated Discharge Date Admission Date: May 18, 2022 Subjective Patient is intubated sedated and on pressors. No family available. Review of Systems Review of Systems: Unobtainable due to endotracheal tube Physical Exam Constitutional: + morbidly obese and + mechanically ventilated Morbid obesity limits sensitivity of exam Neck: trachea midline, no thyromegaly Respiratory: normal respiratory effort, lungs clear to auscultation Cardiovascular: RRR, no murmur, no edema Gastrointestinal (Abdomen): normal bowel sounds, soft, nontender, no hepatosplenomegaly Musculoskeletal: Extremities: extremities normal to inspection Skin: Extremities are cool to the touch distally. Some abdominal mottling noted Neurologic: Sedated on the ventilator Lymphatic: no cervical lymphadenopathy Results & Data Results & Data ([facility]) Vital Signs (Past 12 Hours) Vital Signs Temp Pulse Pulse Resp BP BP Pulse Ox 05/19/22 06:00 37.5 C 86 21 96 05/19/22 05:00 37.3 C 82 21 94 05/19/22 05:00 101/74 05/19/22 04:52 37.2 C 82 19 05/19/22 04:52 104/74 05/19/22 04:47 37.2 C 83 19 05/19/22 04:00 36.9 C 86 21 93 05/19/22 03:47 36.8 C 88 21 05/19/22 03:16 36.7 C 89 20 05/19/22 03:14 36.7 C 90 21 05/19/22 04:00 05/19/22 03:00 36.6 C 88 20 94 05/19/22 02:03 98/72 L 05/19/22 02:03 36.4 C L 87 20 05/19/22 02:01 36.4 C L 88 20 94 05/19/22 02:00 36.3 C L 88 20 94 05/19/22 01:00 36.0 C L 79 20 94 05/19/22 01:00 103/71 05/19/22 00:00 35.7 C L 91 H 20 93 05/19/22 00:00 118/83 05/18/22 23:15 115/83 05/18/22 23:15 35.5 C L 96 H 20 95 05/19/22 03:40 90 21 94 05/19/22 00:00 05/18/22 22:45 05/18/22 22:45 35.6 C L 63 20 103/71 94 05/18/22 23:00 35.4 C L 85 20 94 05/18/22 22:42 35.3 C L 90 20 94 05/18/22 21:00 35.4 C L 85 16 94 05/18/22 21:00 100/63 05/18/22 20:46 85 16 94 05/18/22 20:46 99/61 L 05/18/22 20:41 85 16 94 05/18/22 23:05 87 20 95 05/18/22 22:10 20 05/18/22 21:35 95 H 16 05/18/22 21:00 85 05/18/22 20:35 85 16 114/61 95 05/18/22 20:29 83 16 90/64 L 94 05/18/22 20:20 82 17 79/61 L 86 L 05/18/22 20:10 80 16 94 05/18/22 20:10 98/62 L 05/18/22 20:05 84/56 L 05/18/22 20:05 16 93 02/18/23 20:01 79 16 95 05/18/22 20:00 77 16 95 05/18/22 19:56 78 16 99 O2 Del Method FiO2 05/19/22 06:00 05/19/22 05:00 05/19/22 05:00 05/19/22 04:52 05/19/22 04:52 05/19/22 04:47 05/19/22 04:00 05/19/22 03:47 05/19/22 03:16 05/19/22 03:14 05/19/22 04:00 40 05/19/22 03:00 05/19/22 02:03 05/19/22 02:03 05/19/22 02:01 05/19/22 02:00 05/19/22 01:00 05/19/22 01:00 05/19/22 00:00 05/19/22 00:00 05/18/22 23:15 05/18/22 23:15 05/19/22 03:40 40 05/19/22 00:00 40 05/18/22 22:45 Mechanical Vent 40 05/18/22 22:45 Mechanical Vent 40 05/18/22 23:00 05/18/22 22:42 05/18/22 21:00 05/18/22 21:00 05/18/22 20:46 05/18/22 20:46 05/18/22 20:41 05/18/22 23:05 40 05/18/22 22:10 05/18/22 21:35 40 05/18/22 21:00 05/18/22 20:35 05/18/22 20:29 05/18/22 20:20 05/18/22 20:10 05/18/22 20:10 05/18/22 20:05 05/18/22 20:05 05/18/22 20:01 05/18/22 20:00 05/18/22 19:56 Critical Care Results & Data Vital Signs (Past 12 Hours) Vital Signs Temp Pulse Pulse Resp BP BP Pulse Ox 05/19/22 06:00 37.5 C 86 21 96 05/19/22 05:00 37.3 C 82 21 94 05/19/22 05:00 101/74 05/19/22 04:52 37.2 C 82 19 05/19/22 04:52 104/74 05/19/22 04:47 37.2 C 83 19 05/19/22 04:00 36.9 C 86 21 93 05/19/22 03:47 36.8 C 88 21 05/19/22 03:16 36.7 C 89 20 05/19/22 03:14 36.7 C 90 21 05/19/22 04:00 05/19/22 03:00 36.6 C 88 20 94 05/19/22 02:03 98/72 L 05/19/22 02:03 36.4 C L 87 20 05/19/22 02:01 36.4 C L 88 20 94 05/19/22 02:00 36.3 C L 88 20 94 05/19/22 01:00 36.0 C L 79 20 94 05/19/22 01:00 103/71 05/19/22 00:00 35.7 C L 91 H 20 93 05/19/22 00:00 118/83 05/18/22 23:15 115/83 05/18/22 23:15 35.5 C L 96 H 20 95 05/19/22 03:40 90 21 94 05/19/22 00:00 05/18/22 22:45 05/18/22 22:45 35.6 C L 63 20 103/71 94 05/18/22 23:00 35.4 C L 85 20 94 05/18/22 22:42 35.3 C L 90 20 94 05/18/22 21:00 35.4 C L 85 16 94 05/18/22 21:00 100/63 05/18/22 20:46 85 16 94 05/18/22 20:46 99/61 L 05/18/22 20:41 85 16 94 05/18/22 23:05 87 20 95 05/18/22 22:10 20 05/18/22 21:35 95 H 16 05/18/22 21:00 85 05/18/22 20:35 85 16 114/61 95 05/18/22 20:29 83 16 90/64 L 94 05/18/22 20:20 82 17 79/61 L 86 L 05/18/22 20:10 80 16 94 05/18/22 20:10 98/62 L 05/18/22 20:05 84/56 L 05/18/22 20:05 16 93 05/18/22 20:01 79 16 95 05/18/22 20:00 77 16 95 05/18/22 19:56 78 16 99 O2 Del Method FiO2 05/19/22 06:00 05/19/22 05:00 05/19/22 05:00 05/19/22 04:52 05/19/22 04:52 05/19/22 04:47 05/19/22 04:00 05/19/22 03:47 05/19/22 03:16 05/19/22 03:14 05/19/22 04:00 40 05/19/22 03:00 05/19/22 02:03 05/19/22 02:03 05/19/22 02:01 05/19/22 02:00 05/19/22 01:00 05/19/22 01:00 05/19/22 00:00 05/19/22 00:00 05/18/22 23:15 05/18/22 23:15 05/19/22 03:40 40 05/19/22 00:00 40 05/18/22 22:45 Mechanical Vent 40 05/18/22 22:45 Mechanical Vent 40 05/18/22 23:00 05/18/22 22:42 05/18/22 21:00 05/18/22 21:00 05/18/22 20:46 05/18/22 20:46 05/18/22 20:41 05/18/22 23:05 40 05/18/22 22:10 05/18/22 21:35 40 05/18/22 21:00 05/18/22 20:35 05/18/22 20:29 05/18/22 20:20 05/18/22 20:10 05/18/22 20:10 05/18/22 20:05 05/18/22 20:05 05/18/22 20:01 05/18/22 20:00 05/18/22 19:56 Lab & Micro Results (Past 24 Hours) RBC 5.43 M/uL (4.20-5.40) H 05/19/22 WBC 45.64 K/ul (4.8-10.8) H* 05/19/22 Hgb 14.7 g/dl (12.0-16.0) 05/19/22 Hct 43.6 % (37.0-47.0) 05/19/22 MCV 80.3 fL (80.0-100.0) 05/19/22 MCH 27.1 pg (25.0-34.0) 05/19/22 MCHC 33.7 g/dL (32.0-36.0) 05/19/22 RDW Standard Deviation 39.5 fL (36.4-46.3) 05/19/22 RDW Coefficient of Variation 13.6 % (11.5-14.5) 05/19/22 Plt Count 536 K/uL (130-400) H 05/19/22 MPV 10.3 fL (9.4-12.4) 05/19/22 Nucleated Red Blood Cells % (auto) 0.1 % 05/18 Nucleated RBC Absolute Count (auto) 0.02 K/uL (0-0.12) 05/01 12/21 Neutrophils (%) (Auto) 85.2 % 05/19/22 Lymphocytes (%) (Auto) 3.6 % 05/19/22 Monocytes # (Auto) 2.64 K/uL (0.11-0.59) H 05/19/22 Eosinophils # (Auto) 0.14 K/uL (0-0.50) 05/19/22 Immature Granulocyte % (Auto) 5.1 % 05/19/22 Neutrophils # (Auto) 38.85 K/uL (1.40-6.50) H 05/19/22 Lymphocytes # (Auto) 1.64 K/uL (1.2-3.4) 05/19/22 Monocytes # (Auto) 2.64 K/uL (0.11-0.59) H 05/19/22 Eosinophils # (Auto) 0.14 K/uL (0-0.50) 05/19/22 Basophils # (Auto) 0.02 K/uL (0-0.2) 05/19/22 Immature Granulocyte # (Auto) 2.35 K/uL (0.01-0.20) H 05/19 Polychromasia 1+ 05/19/22 Echinocytes 2+ 05/19/22 Toxic Granulation 1+ 05/19/22 Toxic Vacuolation 1+ 05/19/22 Na 123 mmol/L (136-145) L 05/19/22 K 4.0 mmol/L (3.5-5.1) 05/19/22 Cl 94 mmol/L (98-107) L 05/19/22 CO2 16 mmol/L (21-32) L 05/19/22 Anion Gap 13 (3-11) H 05/19/22 BUN 72 mg/dl (6-23) H 05/19/22 Creatinine 2.68 mg/dl (0.6-1.2) H 05/19/22 Estimated GFR ( Amer) 20.4 ml/min 05/19/22 Estimated GFR (Non-Af Amer) 17.6 ml/min 05/19/22 BUN/Creatinine Ratio 26.9 (10-20) H 05/19/22 Glu 396 mg/dl (70-99(Fasting)) H* 05/19/22 Ca 7.4 mg/dl (8.5-10.1) L 05/19/22 Phosphorus Level 6.2 mg/dl (2.5-4.9) H 05/19/22 Total Bilirubin 0.6 mg/dl (0.2-1.0) 05/19/22 Direct Bilirubin 0.2 mg/dl (0-0.2) 05/19/22 AST 25 U/L (13-39) 05/19/22 ALT 10 U/L (7-52) 05/19/22 Alkaline Phosphatase 83 U/L (34-104) 05/19/22 TP 4.9 gm/dl (6.0-8.3) L 05/19/22 Albumin 2.0 gm/dl (3.4-5.0) L 05/19/22 Mg 2.6 mg/dl (1.7-2.4) H 05/19/22 05:17 Calcium Level 7.4 mg/dl (8.5-10.1) L 05/19/22 05:17 Ionized Calcium 0.99 mmol/L (1.12-1.32) L 05/19/22 05:17 Prothromb Time International Ratio 1.4 (0.9-1.1) H 05/18/22 16 :53 Venous Blood pH 7.21 (7.36-7.41) L 05/18/22 17:22 Venous Blood Partial Pressure CO2 41 mmHg (38-50) 05/18/22 17:2 2 Venous Blood Partial Pressure O2 26 mmHg 05/18/22 17:22 Venous Blood HCO3 16 mmol/L 05/18/22 17:22 Venous Blood Base Excess -11.0 mEq/L 05/18/22 17:22 Venous Blood Oxygen Saturation < 60.0 % 05/18/22 17:22 Arterial Blood pH 7.13 (7.35-7.45) L* 05/18/22 19:32 Arterial Blood Partial Pressure CO2 37 mmHg (35-46) 05/18/22 19 :32 Arterial Blood Partial Pressure O2 35 mmHg (80-95) L 05/18/22 1 9:32 Arterial Blood HCO3 12 mmol/L (19-24) L 05/18/22 19:32 Arterial Blood Base Excess -16.1 mEq/L (-9-1.8) L 05/18/22 19:3 2 Arterial Blood Oxygen Saturation < 60.0 % (90-95) L 05/18/22 19 :32 Blood Gas Oxygen Given 2 05/18/22 19:32 Rogers Test NA 05/19/22 04:06 Diagnostic Findings (Past 24 Hours) Chest X-Ray 05/18/22 17:03 XR chest 1V portable HISTORY: 66 years-old Female Sepsis acute sepsis COMPARISON: 03/20/2022 TECHNIQUE: AP view of the chest FINDINGS: Cardiac silhouette is enlarged. Pulmonary vascular congestion. No pneumothorax or large pleural effusion. Bones appear grossly intact. Degenerative changes of the shoulders and spine. The stomach IMPRESSION: Mild pulmonary vascular congestion. ACT 112: Negative or not required by law. The above report was generated using voice recognition software. It may contain grammatical, syntax or spelling errors. Electronically signed by: Magan Singer M.D. 05/18/2022 6:10 PM Abdomen/Pelvis CT 05/18/22 17:11 CT chest diagnostic wo con, CT abd pelvis wo con CLINICAL HISTORY: 66 years-old Female with sepsis hypotension. Acute sepsis with hypotension TECHNIQUE: Multiaxial CT images of the chest, abdomen and pelvis were performed without contrast. A dose lowering technique was utilized adhering to the principles of ALARA. COMPARISON: None. FINDINGS: CT CHEST: Cardiomegaly with mitral coronary arterial calcifications. No thoracic aortic aneurysm. Small moderate right pleural effusion. Unremarkable thyroid. No lymphadenopathy. Intralobular bronchial wall thickening with areas of mucous plugging. Mild dependent right basilar consolidation. Fluid-filled esophagus. Soft tissues and musculature. Degenerative changes of the shoulders and spine. CT ABDOMEN AND PELVIS: No pneumatosis or pneumoperitoneum. The unenhanced spleen, pancreas are within normal limits. Thickening of the genu glands suggestive of hyperplasia. Marginal nodularity. No adnexal masses identified. Distended gallbladder with possible sludge. There are 2 subcentimeter proteinaceous or hemorrhagic cyst of the superior pole left kidney. No hydronephrosis. Decompressed urinary bladder with Milan catheter. Atherosclerosis of the aorta. No lymphadenopathy. No bowel obstruction. Circumferential wall thickening is noted within the colon ascending from the mid transverse colon through the sigmoid and rectum with pericolonic and perirectal stranding and trace free fluid. Associated air-fluid levels appendix not visualized. No acute fracture. Degenerative changes of the spine, pelvis and hips. IMPRESSION: 1. Findings compatible with a nonspecific proctocolitis extending from the mid transverse colon distally. 2. Trace free pelvic fluid. 3. Small to moderate right pleural effusion with mild right basilar atelectasis. 4. Additional findings as above. ACT 112: Negative or not required by law. Electronically signed by: Magan Singer M.D. 05/18/2022 7:[address] 05/18/22 18:00 CT chest diagnostic wo con, CT abd pelvis wo con CLINICAL HISTORY: 66 years-old Female with sepsis hypotension. Acute sepsis with hypotension TECHNIQUE: Multiaxial CT images of the chest, abdomen and pelvis were performed without contrast. A dose lowering technique was utilized adhering to the principles of ALARA. COMPARISON: None. FINDINGS: CT CHEST: Cardiomegaly with mitral coronary arterial calcifications. No thoracic aortic aneurysm. Small moderate right pleural effusion. Unremarkable thyroid. No lymphadenopathy. Intralobular bronchial wall thickening with areas of mucous plugging. Mild dependent right basilar consolidation. Fluid-filled esophagus. Soft tissues and musculature. Degenerative changes of the shoulders and spine. CT ABDOMEN AND PELVIS: No pneumatosis or pneumoperitoneum. The unenhanced spleen, pancreas are within normal limits. Thickening of the genu glands suggestive of hyperplasia. Marginal nodularity. No adnexal masses identified. Distended gallbladder with possible sludge. There are 2 subcentimeter proteinaceous or hemorrhagic cyst of the superior pole left kidney. No hydronephrosis. Decompressed urinary bladder with Milan catheter. Atherosclerosis of the aorta. No lymphadenopathy. No bowel obstruction. Circumferential wall thickening is noted within the colon ascending from the mid transverse colon through the sigmoid and rectum with pericolonic and perirectal stranding and trace free fluid. Associated air-fluid levels appendix not visualized. No acute fracture. Degenerative changes of the spine, pelvis and hips. IMPRESSION: 1. Findings compatible with a nonspecific proctocolitis extending from the mid transverse colon distally. 2. Trace free pelvic fluid. 3. Small to moderate right pleural effusion with mild right basilar atelectasis. 4. Additional findings as above. ACT 112: Negative or not required by law. Electronically signed by: Magan Singer M.D. 05/18/2022 7:[address] 05/18/22 18:00 CT head/brain wo con CLINICAL HISTORY: 66 years-old Female with ams. Acutely altered mental status TECHNIQUE: Multiple axial CT images of the head were obtained without contrast. A dose lowering technique was utilized adhering to the principles of ALARA. CT DOSE: 2808.39 mGy.cm COMPARISON: None. FINDINGS: No acute intracranial hemorrhage, midline shift, intracranial mass, hydrocephalus, territorial ischemia or abnormal extra-axial collection. Mild involutional changes with mild white matter hypodensities suggestive of chronic microvascular ischemic disease. There are several small ill-defined hypodense foci noted within the left frontal lobe centrum semiovale measuring up to approximately 1.5 cm.. Mildly motion degraded exam. The calvarium is intact. Prior bilateral lens repair. The paranasal sinuses, mastoid air cells, and middle ear cavities are clear. IMPRESSION: 1. No acute intracranial hemorrhage, midline shift or acute territorial infarct. 2. Suggestion of mild chronic microvascular ischemic disease. 3. Small ill-defined hypodense foci within the left frontal lobe centrum semiovale likely represent age-indeterminate lacunar infarcts. ACT 112: Negative or not required by law. The above report was generated using voice recognition software. It may contain grammatical, syntax or spelling errors. Electronically signed by: Magan Singer M.D. 05/18/2022 7:05 PM Abdomen/Pelvis CTA 05/18/22 19:34 CT angio abdomen pelvis w con CLINICAL HISTORY: 66 years-old Female with GI bleed acute GI bleed COMPARISON STUDY: CT abdomen and pelvis of same day at 6:13 PM, chest radiograph of same day 17 p.m. TECHNIQUE: Following the IV administration of Optiray, CT angiogram of the abdomen and pelvis was performed from the lung bases the proximal femora. Images are reviewed in the axial, sagittal, and coronal planes. 3-D MIPS images are created and assessed. All measurements were obtained according to NASCET criteria. IV contrast was administered without complication. A dose lowering technique was utilized adhering to the principles of ALARA. CT DOSE: 1434.58 mGy.cm FINDINGS: Motion degraded exam. CTA: Moderate atherosclerosis of the abdominal aorta and branch vessels. Patent celiac trunk. Superior mesenteric arteries widely patent. Diminutive inferior mesenteric artery is patent. There is no evidence of active extravasation. Iliac arteries are diminutive and patent. CT ABDOMEN/PELVIS: Cardiomegaly. Endotracheal tube is noted terminating above the level the varun. Right IJ central venous catheter. Right basilar atelectasis with small to moderate right pleural effusion unchanged right hemidiaphragmatic elevation. No pneumatosis or pneumoperitoneum. The spleen and pancreas are within normal limits. Thickening of the adrenal glands suggestive of hyperplasia again noted with hyperattenuation. Mild marginal nodularity of the liver again noted. No hepatic mass identified. Distended gallbladder with possible sludge. Focal area of ill-defined heterogeneity within the superior pole left kidney overall measures 2.4 cm on image 134. The previously described proteinaceous or hemorrhagic subcentimeter cyst. Punctate calcifications of the left kidney again noted. No hydronephrosis. Unremarkable appearance of the right kidney. Decompressed urinary bladder with Milan catheter. No lymphadenopathy. Distal tip of enteric tube terminates within the mid stomach which is mildly distended. No bowel obstruction. Circumferential wall thickening with mucosal hyperemia is again noted within the colon ascending from the mid transverse colon through the sigmoid and rectum with pericolonic and perirectal stranding and trace free fluid. Layering hyperdense material is again noted within the distal colon suggestive of dizziness. Associated air-fluid levels appendix not visualized. No acute fracture. Degenerative changes of the spine, pelvis and hips. IMPRESSION: 1. Atherosclerosis. No arterial occlusion or evidence of active extravasation identified. 2. Findings compatible with a nonspecific proctocolitis extending from the mid transverse colon distally. 3. Trace free pelvic fluid. 4. Small to moderate right pleural effusion with mild right basilar atelectasis. 5. Lines and tubes as above. 6. Hyperattenuation of the adrenal glands can be associated with hypovolemia. ACT 112: Negative or not required by law. The above report was generated using voice recognition software. It may contain grammatical, syntax or spelling errors. Electronically signed by: Magan Singer M.D. 05/18/2022 9:49 PM Chest X-Ray 05/18/22 19:51 XR chest 1V portable HISTORY: 66 years-old Female s/p intubation and central line status post placement of an endotracheal tube COMPARISON: Chest CT of same day TECHNIQUE: AP view the chest FINDINGS: Status post placement of a right IJ central venous catheter distal tip in the expected location of the mid SVC. Endotracheal tube terminates 2.5 cm superior to the varun. Enteric tube terminates within the stomach which is mildly distended. Cardiomegaly. Moderate hemidiaphragmatic elevation. Small to moderate right pleural effusion with right basilar atelectasis. Pulmonary vascular congestion. No pneumothorax. IMPRESSION: 1. Lines and tubes as above. 2. No pneumothorax. 3. Unchanged right hemidiaphragmatic elevation with small to moderate right pleural effusion. 4. Pulmonary vascular congestion. ACT 112: Negative or not required by law. The above report was generated using voice recognition software. It may contain grammatical, syntax or spelling errors. Electronically signed by: Magan Singer M.D. 05/18/2022 8:38 PM I & O Totals 24 Hours 05/18/22 05/19/22 05/20/22 06:59 06:59 06:59 Intake Total 5597.970 / 5597.970 350 / 350 Output Total 325 / 325 Balance 5272.970 / 5272.970 350 / 350 Cumulative 05/18/22 16:29 thru 05/19/22 07:10 Intake Total 5947.970 Output Total 325 Balance 5622.970 RT Ventilator Mngmt (Last Documented) Ventilator Ordered Settings Ventilator Support Mode Assist Control 05/19/22 04:00 Respiratory Rate 21 05/19/22 06:00 Ventilator Tidal Volume 300 05/19/22 04:00 Setting Minute Ventilation 6.2 05/19/22 03:40 Positive End Expiratory 5 05/19/22 04:00 Pressure Fraction of Inspired Oxygen 40 05/19/22 04:00 Ventilator - PT Measurements Respiratory Rate 21 Exhaled Tidal Volume 300 Minute Ventilation 6.2 Peak Inspiratory Airway 16 Pressure Plateau Pressure 15.2 Respiratory Cycle Inspiratory: 1:2.0 Expiratory Ratio Inspiratory Phase Time 1.0 End-Tidal CO2 33 Static Lung Compliance 29.41 Dynamic Lung Compliance 27.27 Normal Static Lung Compliance 47.00 Patient Measurements Comment Tube advanced 1cm per Brezovic Coding Level of Care Code Critical Care 1st 30-74 mins Diagnoses Severe sepsis with septic shock A41.9; R65.21 Acute respiratory failure with hypoxia J96.01 Acute renal failure N17.9 DM2 (diabetes mellitus, type 2) E11.9 Paroxysmal atrial fibrillation I48.0 Time Spent (min) 120 Comment [id number] and [id number]
[2022-05-19] MEDS: INSULIN ASPART PER UNIT SC SCH ×5 (08:06→23:20)
[2022-05-19] MEDS: PIPERACILLIN/TAZOBACTAM 4.5 GM in DEXTROSE 5% 100 ML IV SCH (08:07)
[2022-05-19] MEDS ORDERED: SODIUM CHLORIDE 0.9% 1000ML 500 ML IV ONE (08:14)
[2022-05-19] MEDS ORDERED: CALCIUM CHLORIDE 10% 1,000 MG in DEXTROSE 5% 50 ML IV ONE (09:00)
[2022-05-19] MEDS: ALBUMIN 25% 100 mL 25 GM/100 ML VIAL IV SCH ×2 (09:10→11:13)
[2022-05-19] MEDS: SODIUM BICARBONATE 8.4% 150 MEQ in DEXTROSE 5% 1,000 ML IV SCH ×2 (09:30→16:05)
[2022-05-19 09:55] LABS: Cdiff Toxin B Gene (2yr or >) Positive Cdiff Gene (Neg)
[2022-05-19 10:30] LABS: Adenovirus F 40/41 PCR Not Detected (NotDetected); Astrovirus PCR Not Detected (NotDetected); Campylobacter PCR Not Detected (NotDetected); Cryptosporidium PCR Not Detected (NotDetected); Cyclospora cayetanensis PCR Not Detected (NotDetected); Entamoeba histolytica PCR Not Detected (NotDetected); Enteroaggregative E.coli(EAEC) Not Detected (NotDetected); Enteropathogenic E.coli (EPEC) Not Detected (NotDetected); Enterotoxigenic E.coli (ETEC) Not Detected (NotDetected); Giardia lamblia PCR Not Detected (NotDetected); Plesiomonas shigelloides PCR Not Detected (NotDetected); Rotavirus A PCR Not Detected (NotDetected); Salmonella PCR Not Detected (NotDetected); Sapovirus PCR Not Detected (NotDetected); Shiga-like Toxin E.coli (STEC) Not Detected (NotDetected); Shigella/Enteroinvasive E.coli Not Detected (NotDetected); Vibrio cholerae PCR Not Detected (NotDetected); Vibrio species PCR Not Detected (NotDetected); Yersinia enterocolitica PCR Not Detected (NotDetected)
[2022-05-19 10:35] LABS: Norovirus GI/GII PCR DETECTED (NotDetected)
[2022-05-19 10:36] LABS: Cdiff Antigen Positive; Cdiff Toxin A+B Positive Cdiff Toxin (Negative)
--- NOTE | 2022-05-19 10:49 | Pharmacy Report ---
Pharmacy PK ABX Note - Date of Service May 19, 2022 - Assessment and Plan Assessment 66 year old F receiving Vancomycin and Zosyn for treatment of sepsis secondary to possible colitis and possible Cdiff. * White count worsened today, 32.5k --> 45.6k. * Serum creatinine improved today, 3.15 --> 2.68. * MRSA nasal swab negative. Blood cultures pending. Resp biofire negative. GI biofire positive for norovirus. Cdiff gene and toxin positive. * Given abx were ordered empirically, will give another dose of vanc x 1 today then have ICU pharmacist follow up on rounds tomorrow morning. Plan Vancomycin * Loading dose: 2250 mg IV x 1 * Maintenance dose: 1000 mg IV x 1 at 1800 today * Regimen is predicted to achieve target AUC/SOL of 400-600 mg/L.hr * Random level ordered for: 05/20/22 Zosyn * 4.5 g IV every 8 hours is appropriate for CrCl > 20 mL/min Pharmacy will continue to follow and will adjust dose/frequency as necessary. Thank you. Pharmacy has transitioned to AUC monitoring for vancomycin. AUC/SOL is the preferred PK/PD target and is associated with decreased risk of nephrotoxicity compared to traditional trough targets.
[2022-05-19] MEDS: PANTOprazole 40 MG in SYRINGE 0 ML IV SCH ×2 (10:55→20:43)
--- NOTE | 2022-05-19 11:24 | Electrocardiogram Report ---
Test Reason : Blood Pressure : / mmHG Vent. Rate : 079 BPM Atrial Rate : 079 BPM P-R Int : 244 ms QRS Dur : 098 ms QT Int : 482 ms P-R-T Axes : 070 -20 059 degrees QTc Int : 552 ms Sinus rhythm with 1st degree A-V block Low voltage QRS Cannot rule out Anterior infarct (cited on or before 24-MAR-2022) Prolonged QT Abnormal ECG When compared with ECG of 24-MAR-2022 05:58, Premature ventricular complexes are no longer Present Questionable change in initial forces of Anterior leads QT has lengthened Confirmed by Marcus Barreto ([id number]) on 05/19/2022 11:24:06 AM Referred By: REFERRED SELF Confirmed By:Marcus Barreto
[2022-05-19] MEDS: metroNIDAZOLE 500 MG/100 ML BAG IV SCH ×2 (11:36→19:15)
[2022-05-19] MEDS: FIDAXOMICIN 200 MG TAB PO SCH ×2 (11:40→20:43)
[2022-05-19 11:59] LABS: iSTAT Arterial Blood Gas HCO3 17 meg/L (19-24); iSTAT Arterial Blood Gas pCO2 38 mmHg (35-46); iSTAT Arterial Blood Gas pH 7.26 (7.35-7.45); iSTAT Arterial Blood Gas pO2 116 mmHg (80-95); iSTAT Carbon Dioxide 18 mmol/L (24-31); iSTAT FiO2 40 %; iSTAT Site Art Line
[2022-05-19 12:51] LABS: Fibrinogen 399 mg/dl (184-400); INR 1.2 (0.9-1.1)
[2022-05-19 13:29] LABS: A calco-baum cmplx NotReported Not Detected (NotDetected); Bact fragilis Not Reported Not Detected (NotDetected); C auris Not Reported Not Detected (NotDetected); Calbicans Not Reported Not Detected (NotDetected); Candida glabrata Not Reported Not Detected (NotDetected); Candida krusei Not Reported Not Detected (NotDetected); Cneoformans/gatti Not Reported Not Detected (NotDetected); Cparapsilosis Not Reported Not Detected (NotDetected); Ctropicalis Not Reported Not Detected (NotDetected); E cloacae compx Not Reported Not Detected (NotDetected); Efaecalis Not Reported Not Detected (NotDetected); Efaecium Not Reported Not Detected (NotDetected); Enterobacterales Not Reported Not Detected (NotDetected); Escherichia coli Not Reported Not Detected (NotDetected); H influenzae Not Reported Not Detected (NotDetected); K aerogenes Not Reported Not Detected (NotDetected); Koxytoca Not Reported Not Detected (NotDetected); Kpneumoniae grp Not Reported Not Detected (NotDetected); Lmonocyt Not Reported Not Detected (NotDetected); N meningitidis Not Reported Not Detected (NotDetected); P aeruginosa Not Reported Not Detected (NotDetected); Proteus spp Not Reported Not Detected (NotDetected); Salmonella spp Not Reported Not Detected (NotDetected); Smarcescens Not Reported Not Detected (NotDetected); Staph lugdunensis Not Reported Not Detected (NotDetected); Staph spp. Not Reported DETECTED (NotDetected); Staphaureus Not Reported Not Detected (NotDetected); Staphepi Not Reported DETECTED (NotDetected); Staphylococcus spp. DETECTED (NotDetected); Stenmaltophilia Not Reported Not Detected (NotDetected); Strep agal(GrpB) Not Reported Not Detected (NotDetected); Strep pneum Not Reported Not Detected (NotDetected); Strep pyog (GrpA) Not Reported Not Detected (NotDetected); Strep spp Not Reported Not Detected (NotDetected); mecAC Resistant Gene DETECTED (NotDetected)
[2022-05-19 13:38] LABS: Staphylococcus epidermidis DETECTED (NotDetected)
--- NOTE | 2022-05-19 14:58 | Hospitalist Progress Note ---
Date of Service May 19, 2022 Assessment & Plan (1) Septic shock: (2) GI bleed: (3) Respiratory failure with hypoxia: (4) MARIA ELENA (acute kidney injury): (5) Hyponatremia: (6) DM2 (diabetes mellitus, type 2): (7) HLD (hyperlipidemia): (8) HTN (hypertension): (9) H/O: CVA (cerebrovascular accident): (10) Neurogenic bladder: (11) Paroxysmal atrial fibrillation: (12) Depression with anxiety: Plan 66-year-old lady, resident at [facility] with PMH of CVA with residual right- sided weakness, chronic indwelling Milan catheter for neurogenic bladder, morbid obesity, HTN, GI bleeds, DM2, chronic hyponatremia, PAF on Eliquis was brought to the ED 05/18 from [facility] for concerns of encephalopathy and reported bloody bowel movements. She was noted to be obtunded, mildly hypothermic and with dried blood in oral cavity at ED and hence was intubated. She reportedly had another bowel movement in the ED that was dark maroon without clots. She is being managed for the following: C. difficile colitis Norovirus Ac Gastroenteritis Gram-positive bacteremia: 05/19 echo neg for vegetation, repeat bl cx and follow. Septic shock likely secondary to above Likely metabolic encephalopathy Patient presents with altered mentation and was intubated due to AMS/dried blood in oral cavity Due to persistent hypotension, started on pressors at admission. Milan catheter was changed in the ED. Admitting labs with WBC of 32.5 K, hemoglobin of 11.8, AG metabolic acidosis in ABG. Pro-Maxim and LA elevated. Respiratory BioFire panel was negative. Admitting CXR with mild pulmonary vascular congestion. Admitting CTAP and CT chest: Nonspecific proctocolitis extending from the mid transverse colon distally. Small to moderate right pleural effusion with mild right basilar atelectasis. Admitting CT head with no new acute findings. 05/18 blood culture: GPC bacteremia, follow final results. Currently on pressors, Versed, metronidazole, sodium bicarbonate drip, vancomycin p.o. and IV, dificid Being managed in ICU per ICU team. GI bleed: Had dark-colored stool in the ED, admitting hemoglobin of 11.8, on Protonix drip hemoglobin has stabilized, being managed in ICU. MARIA ELENA: Admitting creatinine of 4.06, secondary to septic shock, patient receiving pressors and fluids, creatinine downtrending, monitor BMP Type II NSTEMI: Troponin elevated likely secondary to acute illness, EKG and echo done/reviewed. A-fib on Eliquis: On hold due to GI bleed. Electrolyte abnormalities: Including hyponatremia, MARIA ELENA, metabolic acidosis. Likely will need nephrology consult. DMII: History of, insulin per ICU protocol. CVA, Neurogenic bladder and anxiety: -holding oral medications -urinary catheter changed in the ER DVT PPx: SCD Code Status:FULL CODE Admission and Anticipated Discharge Date Admission Date: May 18, 2022 Subjective Patient is seen and examined at bedside as a follow-up of septic shock, GI bleed, C. difficile, MARIA ELENA, electrolyte abnormalities. Patient was lying in bed, intubated and mechanically ventilated, on Versed and Levophed/vasopressin, had large loose bowel movement in a.m. per RN which came back positive for norovirus and C. difficile. ROS not able due to intubated/sedated status. Physical Exam Physical Exam: Intubated, sedated, mechanically ventilated. Obesity class II On Levophed/Versed/vasopressor. Urinary catheter with scant yellow urine noted Heart: RRR, no murmur Lower extremity: No erythema, no edema Respiratory: Intubated/ventilated, clear to auscultation Neurologic: Sedated on ventilator Results & Data Results & Data ([facility]) Vital Signs (Past 12 Hours) Vital Signs Temp Pulse Resp BP Pulse Ox O2 Del Method FiO2 05/19/22 12:00 37.0 C 88 26 H 100 05/19/22 11:00 37.1 C 81 26 H 100 05/19/22 10:00 37.3 C 91 H 26 H 99 05/19/22 09:00 27 H 05/19/22 08:00 37.4 C 92 H 18 95 05/19/22 07:01 37.6 C H 89 20 97 05/19/22 07:00 37.6 C H 90 20 97 05/19/22 08:00 Mechanical Vent 05/19/22 12:00 35 05/19/22 08:00 40 05/19/22 07:57 92 H 24 94 40 05/19/22 06:00 37.5 C 86 21 96 05/19/22 05:00 37.3 C 82 21 94 05/19/22 05:00 101/74 05/19/22 04:52 37.2 C 82 19 05/19/22 04:52 104/74 05/19/22 04:47 37.2 C 83 19 05/19/22 04:00 36.9 C 86 21 93 05/19/22 03:47 36.8 C 88 05/19/22 03:16 36.7 C 89 20 05/19/22 03:14 36.7 C 90 05/19/22 04:00 40 05/19/22 03:00 36.6 C 88 20 94 05/19/22 03:40 90 21 94 40
[2022-05-19] MEDS ORDERED: PIPERACILLIN/TAZOBACTAM 4.5 GM in DEXTROSE 5% 100 ML IV SCH (16:00)
[2022-05-19] MEDS ORDERED: VANCOMYCIN HCL 1,000 MG in SODIUM CHLORIDE 0.9% 250 ML IV ONE (18:00)
[2022-05-19 18:27] LABS: iSTAT Art Bld Gas pCO2 Correct 36 mmHg (35-46); iSTAT Art Bld Gas pH Corrected 7.408 (7.35-7.45); iSTAT Arterial Blood Gas HCO3 22 meg/L (19-24); iSTAT Arterial Blood Gas pCO2 35 mmHg (35-46); iSTAT Arterial Blood Gas pH 7.42 (7.35-7.45); iSTAT Arterial Blood Gas pO2 49 mmHg (80-95); iSTAT Arterial Blood Gas pO2 C 51; iSTAT Carbon Dioxide 23 mmol/L (24-31); iSTAT FiO2 30 %; iSTAT Hematocrit 40 % (37-47); iSTAT Hemoglobin 13.6 g/dl (12.0-16.0); iSTAT Potassium 2.6 mmol/L (3.3-5.0); iSTAT Site Art Line; iSTAT Sodium 127 mmol/L (135-144)
[2022-05-19] MEDS ORDERED: D5W AND LACTATED RINGERS 1,000 ML IV SCH (18:45)
[2022-05-19 18:48] LABS: BUN Creatinine Ratio 36.8 (10-20); Calcium 7.6 mg/dl (8.5-10.1); Creatinine Clr Calc Pharmacy 30.5 ml/min; Est GFR (African American) 31.9 ml/min; Est GFR (Non-African American) 27.5 ml/min; Potassium 2.5 mmol/L (3.5-5.1)
[2022-05-19 18:56] LABS: Hematocrit (blood only) 35.7 % (37.0-47.0); Hemoglobin 12.8 g/dl (12.0-16.0); Mean Corpuscular Hemoglobin 27.4 pg (25.0-34.0); Mean Corpuscular Hgb Conc 35.9 g/dL (32.0-36.0); Mean Corpuscular Volume 76.4 fL (80.0-100.0); Mean Platelet Volume 9.6 fL (9.4-12.4); Nucleated RBC # (auto) 0.02 K/uL (0-0.12); Nucleated RBC % (auto) 0.1 %; Platelet Count 381 K/uL (130-400); RDW Coefficient of Variation 13.9 % (11.5-14.5); RDW Standard Deviation 37.9 fL (36.4-46.3); Red Blood Count 4.67 M/uL (4.20-5.40)
[2022-05-19 19:04] LABS: Basophils # (auto) 0.02 K/uL (0-0.2); Basophils % (auto) 0.1 %; Echinocytes 2+; Eosinophils # (auto) 0.12 K/uL (0-0.50); Eosinophils % (auto) 0.3 %; Immature Granulocytes # (auto) 1.25 K/uL (0.01-0.20); Immature Granulocytes % (auto) 3.6 %; Lymphocytes # (auto) 2.19 K/uL (1.2-3.4); Lymphocytes % (auto) 6.3 %; Monocytes % (auto) 6.6 %; Neutrophils # (auto) 28.82 K/uL (1.40-6.50); Neutrophils % (auto) 83.1 %; Target Cells 1+; Toxic Granulation 1+; Toxic Vacuolation 1+
[2022-05-19] MEDS: POTASSIUM CHLORIDE / WTR 20 MEQ/100 ML PLCT IV SCH ×4 (19:15→23:13)
[2022-05-19] MEDS ORDERED: PHARMACY GLYCEMIC MGMT CONSULT PRN (22:56)
[2022-05-19 23:00] LABS: iSTAT Arterial Blood Gas HCO3 25 meg/L (19-24); iSTAT Arterial Blood Gas pCO2 35 mmHg (35-46); iSTAT Arterial Blood Gas pH 7.46 (7.35-7.45); iSTAT Arterial Blood Gas pO2 81 mmHg (80-95); iSTAT Carbon Dioxide 26 mmol/L (24-31); iSTAT FiO2 30 %; iSTAT Site Art Line
[2022-05-19] MEDS ORDERED: LANTUS PER UNIT CHARGE SQ ONE (23:00)
[2022-05-19 23:07] LABS: BUN Creatinine Ratio 38.6 (10-20); Calcium 7.2 mg/dl (8.5-10.1); Creatinine Clr Calc Pharmacy 36.9 ml/min; Est GFR (African American) 40.1 ml/min; Est GFR (Non-African American) 34.6 ml/min; Potassium 3.6 mmol/L (3.5-5.1)
[2022-05-19] MEDS ORDERED: MAGNESIUM SULFATE / D5W 1 GM/100 ML BAG IV STA (23:17)
[2022-05-20] MEDS: NOREPINEPHRINE/D5W 4 MG/250 ML PLCT IV SCH ×3 (00:46→17:50)
[2022-05-20] MEDS ORDERED: NORMOSOL-R 1,000 ML IV SCH (01:45)
[2022-05-20] MEDS: INSULIN ASPART PER UNIT SC SCH ×5 (04:10→21:04)
[2022-05-20] MEDS: metroNIDAZOLE 500 MG/100 ML BAG IV SCH ×3 (04:15→22:18)
[2022-05-20 04:38] LABS: Albumin Level 2.4 gm/dl (3.4-5.0); BUN Creatinine Ratio 42.4 (10-20); Bilirubin Direct 0.2 mg/dl (0-0.2); Bilirubin,Total 0.6 mg/dl (0.2-1.0); Calcium 7.3 mg/dl (8.5-10.1); Creatinine Clr Calc Pharmacy 45.2 ml/min; Est GFR (African American) 51.2 ml/min; Est GFR (Non-African American) 44.2 ml/min; Magnesium 2.1 mg/dl (1.7-2.4); Phosphorus 2.4 mg/dl (2.5-4.9); Potassium 3.1 mmol/L (3.5-5.1); Total Protein 4.6 gm/dl (6.0-8.3)
[2022-05-20] MEDS: VASOPRESSIN 20 UNITS in 0.9 % SODIUM CHLORIDE 100 ML IV SCH ×3 (05:03→21:55)
[2022-05-20 05:19] LABS: iSTAT Arterial Blood Gas HCO3 23 meg/L (19-24); iSTAT Arterial Blood Gas pCO2 37 mmHg (35-46); iSTAT Arterial Blood Gas pH 7.41 (7.35-7.45); iSTAT Arterial Blood Gas pO2 86 mmHg (80-95); iSTAT Carbon Dioxide 24 mmol/L (24-31); iSTAT FiO2 30 %; iSTAT Site Art Line
[2022-05-20] MEDS ORDERED: SODIUM PHOSPHATE 3 MMOL/1 ML INFUSION IV STA ×2 (05:27→20:41)
[2022-05-20 05:28] LABS: Hematocrit (blood only) 36.4 % (37.0-47.0); Mean Corpuscular Hemoglobin 27.3 pg (25.0-34.0); Mean Corpuscular Hgb Conc 35.7 g/dL (32.0-36.0); Mean Corpuscular Volume 76.5 fL (80.0-100.0); Mean Platelet Volume 9.9 fL (9.4-12.4); Platelet Count 377 K/uL (130-400); RDW Coefficient of Variation 13.9 % (11.5-14.5); RDW Standard Deviation 38.5 fL (36.4-46.3); Red Blood Count 4.76 M/uL (4.20-5.40); White Blood Count 32.37 K/ul (4.8-10.8)
[2022-05-20 05:29] LABS: Basophils # (auto) 0.18 K/uL (0-0.2); Basophils % (auto) 0.6 %; Echinocytes 3+; Eosinophils # (auto) 0.01 K/uL (0-0.50); Immature Granulocytes # (auto) 1.02 K/uL (0.01-0.20); Immature Granulocytes % (auto) 3.2 %; Lymphocytes # (auto) 1.76 K/uL (1.2-3.4); Lymphocytes % (auto) 5.4 %; Monocytes % (auto) 7.7 %; Neutrophils % (auto) 83.1 %
[2022-05-20] MEDS: ICU ELECTROLYTE REPLACEMENT PROTOCOL SCH ×3 (05:32→20:54)
[2022-05-20] MEDS ORDERED: SODIUM PHOSPHATE 9 MMOL in SODIUM CHLORIDE 0.9% 250 ML IV ONE (06:00)
[2022-05-20] MEDS: MAGNESIUM SULFATE / D5W 1 GM/100 ML BAG IV SCH ×2 (06:01→08:27)
[2022-05-20] MEDS: POTASSIUM CHLORIDE / WTR 20 MEQ/100 ML PLCT IV SCH ×6 (06:01→23:12)
[2022-05-20] MEDS: VANCOMYCIN HCL 125 MG/2.5ML SOLN PO SCH (06:19)
[2022-05-20] MEDS: RASPBERRY SYRUP 5 ML UDP PO SCH ×3 (06:41→23:10)
[2022-05-20] MEDS ORDERED: VANCOMYCIN HCL 1,500 MG in SODIUM CHLORIDE 0.9% 500 ML IV ONE (08:00)
[2022-05-20] MEDS: PANTOprazole 40 MG in SYRINGE 0 ML IV SCH ×2 (08:33→22:18)
[2022-05-20] MEDS: FIDAXOMICIN 200 MG TAB PO SCH ×2 (08:33→09:38)
--- NOTE | 2022-05-20 08:43 | Critical Care Progress Note ---
Date of Service May 20, 2022 Assessment & Plan (1) Severe sepsis with septic shock: (2) Acute respiratory failure with hypoxia: (3) Acute renal failure: (4) DM2 (diabetes mellitus, type 2): (5) Paroxysmal atrial fibrillation: Plan Impression: 66-year-old female with morbid obesity, chronic indwelling Milan, previous stroke with neurological sequelae admitted with severe sepsis with septic shock, acute renal failure, respiratory failure, acidosis with evidence of colitis Recommendations: 1. Neurologic: Sedation vacation. CT head on admission negative. Likely hypoactive delirium from septic shock and overuse of sedation. 2. Cardiovascular. Maintain mean arterial pressures above 65 mmHg. 5 mg midodrine 3 times daily started to help wean off Levophed. Weaning sedation will also help with pressures. Echo reviewed without signs of ischemic changes. LV normal. Right IJ central line and left radial arterial line in place. 3. Pulmonary: Minimal O2 return requirements. Reduce PEEP to 5. Continue lung protective ventilation strategy. ABG with normalized pH and PCO2. Bicarb within the normal range as well. 4. GI: Pancolitis. Await C. difficile. Keep n.p.o. for now. Initial concern about GI bleeding but this appears to be secondary and her hemoglobins been stable. Decrease Protonix to 40 mg IV twice daily dosing. Keep n.p.o. given pressor requirements. Distended gallbladder on imaging however AST ALT and alk phos all normal. 5. Renal: Renal failure improving. Hyponatremia present likely due to excess free water and SIADH. Monitor BMP closely. Replace electrolytes aggressively. 6. ID: Presumed colitis with possible secondary translocation. Continue oral and IV vancomycin. Repeat blood cultures pending as well given the presence of gram-positive clusters concerning for MR Staph epidermidis. Chronic Milan catheter replaced on admission. 7. Endocrine: Continue insulin. Appreciate pharmacy input. 8. Heme-onc: Marked leukocytosis secondary to infection. Platelets elevated secondary to underlying infection. Continue to follow Patient discussed on multidisciplinary rounds CRITICAL CARE TIME - I have personally spent 38 minutes of critical care time in the direct managemen t of this patient. This is a life/limb threatening event. This includes time spent evaluating patient, direct bedside care, chart review, placing orders, interpretation of diagnostic studies, discussion with consultants, patient, and family members, as well as other required patient management activities. This time is exclusive of all separately billable procedures, and teaching time and separate from and in addition to any other critical care service time. Admission and Anticipated Discharge Date Admission Date: May 18, 2022 Subjective Patient seen and examined. Remains on Levophed and vasopressin. Also on low- dose Versed and fentanyl upon exam. Patient with a RASS of -5. She does have a gag reflex when passing the suction catheter. No significant events overnight aside for some maroon-colored stool. Hemoglobin remained stable. Otherwise review of systems limited due to the patient's sedation. Review of Systems Review of Systems: Unobtainable due to reduced consciousness Physical Exam Constitutional: + morbidly obese and + mechanically ventilated Morbid obesity limits sensitivity of exam Neck: trachea midline, no thyromegaly Respiratory: normal respiratory effort, lungs clear to auscultation Cardiovascular: RRR, no murmur, no edema Gastrointestinal (Abdomen): normal bowel sounds, soft, nontender, no hepatosplenomegaly Musculoskeletal: Extremities: extremities normal to inspection Skin: Extremities are cool to the touch distally. Some abdominal mottling noted Neurologic: Sedated on the ventilator Lymphatic: no cervical lymphadenopathy Results & Data Results & Data ([facility]) Vital Signs (Past 12 Hours) Vital Signs Temp Pulse Resp Pulse Ox O2 Del Method FiO2 05/20/22 07:45 76 21 98 30 05/20/22 05:00 72 22 98 30 05/20/22 04:00 37.1 C 72 22 97 30 05/20/22 03:00 37.0 C 73 22 97 30 05/20/22 02:00 37.0 C 77 23 99 30 05/20/22 04:00 30 05/20/22 01:55 77 22 99 30 05/20/22 01:00 37.1 C 87 24 99 30 05/20/22 01:23 75 05/20/22 00:00 Mechanical Vent 30 05/20/22 00:00 37.2 C 78 24 96 30 05/19/22 23:00 37.4 C 92 H 24 99 30 05/20/22 00:17 30 05/19/22 22:45 90 26 H 98 30 05/19/22 22:00 37.5 C 96 H 26 H 99 05/19/22 21:00 37.5 C 90 26 H 98 Coding Level of Care Code Critical Care 1st 30-74 mins Diagnoses Severe sepsis with septic shock A41.9; R65.21 Acute respiratory failure with hypoxia J96.01 Acute renal failure N17.9 DM2 (diabetes mellitus, type 2) E11.9 Paroxysmal atrial fibrillation I48.0
--- NOTE | 2022-05-20 09:51 | Pharmacy Report ---
Pharmacy PK ABX Note - Date of Service May 20, 2022 - Assessment and Plan Assessment 66 year old F receiving Vancomycin for treatment of bacteremia. Blood cultures (05/18) (+) gram positive cocci in clusters in 06/01. Biofire (+) MRSE. Repeat blood cultures pending. Also C.diff positive (receiving PO vancomycin and IV flagyl). Renal function improving (SCr 4.06 -->2.68 -->1.53 -->1.25). Day # 3 vancomycin Plan Vancomycin * S/p vanc 2250mg IV X 1 load and 1gm IV X 1 last evening * Random vancomycin level this AM, 16.9mcg/mL (~10hr level) indicating clearance - therapeutic and safe to re-dose. * Vanc 1500mg IV X 1 this AM - will repeat a random level tomorrow prior to scheduling * Random level ordered for: 05/21/22 Pharmacy will continue to follow and will adjust dose/frequency as necessary. Thank you. Pharmacy has transitioned to AUC monitoring for vancomycin. AUC/SOL is the preferred PK/PD target and is associated with decreased risk of nephrotoxicity compared to traditional trough targets.
[2022-05-20] MEDS ORDERED: CALCIUM GLUCONATE 10% 2,000 MG in SODIUM CHLORIDE 0.9% 50 ML IV ONE (10:00)
--- NOTE | 2022-05-20 10:00 | Pharmacy Report ---
Pharmacy Glycemic Short Note 2 - Date of Service May 20, 2022 - Glycemic Short BSG Results (Last 24 hours): 05/19/22 05/19/22 05/19/22 10:52 11:37 13:04 Glucose POC Glucose (other) 268 H 258 H 225 H 05/19/22 05/19/22 05/19/22 14:21 15:09 16:03 Glucose POC Glucose (other) 196 H 173 H 156 H 05/19/22 05/19/22 05/19/22 17:07 18:07 18:13 Glucose 122 H POC Glucose (other) 131 H 117 H 05/19/22 05/19/22 05/19/22 19:10 20:50 22:25 Glucose 287 H POC Glucose (other) 112 H 214 H 05/19/22 05/20/22 05/20/22 22:32 01:30 03:47 Glucose 311 H* POC Glucose (other) 271 H 317 H OUTPATIENT ANTIDIABETIC REGIMEN: * Lantus 15 units SQ HS * Sitagliptin 100mg PO daily HbA1C: 5.6% (03/20/22) ASSESSMENT: * Pt is a 66 YO female admitted from a facility with severe sepsis and septic shock. She is currently critically ill, intubated, sedated, and requiring vasopressor support. History of DM2 - pharmacy consulted to assist with glycemic management. * Initiated on an insulin drip yesterday -- discontinued last evening due to hypokalemia (K-2.5). Lantus 20 units SQ X 1 given and Novolog q4 (CF- 25mg/dL/unit) initiated. * BSGs elevated since discontinuation of infusion last night: [phone]/dL. * She remains intubated and on pressors. NPO. Continues on IV antibiotics and PO vanc. SCr down-trending. * Novolog parameters tightened this AM to CF 20mg/dL/unit q4. Given BSGs have down-trended throughout the day today ([phone]/dL), will continue with q4 Novolog and an HS Lantus scale tonight. If BSGs rebound into 300s and potassium WNL, would consider resuming insulin infusion for hyperglycemia in setting of critical illness. PLAN FOR INPATIENT GLYCEMIC CONTROL: * Hold outpatient oral diabetes medications * Basal insulin * Lantus HS scale pending BSG * Bolus insulin * NovoLog per scale ACHS or Q4hrs while NPO * Goal Range: Low 110 mg/dL - High 140 mg/dL * Correction Factor: 20 mg/dL/unit * Nutritional / Prandial insulin per carb ratio of 1 unit per 9 grams CHO consumed
--- NOTE | 2022-05-20 11:24 | Electrocardiogram Report ---
Test Reason : Blood Pressure : / mmHG Vent. Rate : 072 BPM Atrial Rate : 072 BPM P-R Int : 200 ms QRS Dur : 100 ms QT Int : 552 ms P-R-T Axes : 080 -16 060 degrees QTc Int : 604 ms Normal sinus rhythm with 1st degree AV block Low voltage QRS Prolonged QT Abnormal ECG When compared with ECG of 18-MAY-2022 16:44, MO interval has decreased Minimal criteria for Anterior infarct are no longer Present Confirmed by Ramses Pacheco ([id number]) on 05/20/2022 11:24:25 AM Referred By: REFERRED SELF Confirmed By:Dimitris Pacheco
--- NOTE | 2022-05-20 11:32 | XRay Report ---
XR chest 1V portable CLINICAL HISTORY: eval tubes/lines/lung fileds TECHNIQUE: Single frontal radiograph of the chest was obtained. Comparison: Comparison is made to chest radiograph 05/19/2022 FINDINGS: Lines and tubes are stable. Cardiomegaly is noted. Elevation of the right hemidiaphragm is seen. Ther e is a noted pulmonary vascular congestion has improved. Right pleural effusion cannot be excluded. IMPRESSION: 1. Stable lines and tubes. Cannot exclude right pleural effusion. 2. Improved pulmonary vascular congestion. ACT 112: Negative or not required by law. Electronically signed by: Alexander Colón M.D. 05/20/2022 11:31 AM
[2022-05-20 12:16] LABS: BUN Creatinine Ratio 48.4 (10-20); Calcium 7.1 mg/dl (8.5-10.1); Creatinine Clr Calc Pharmacy 61.5 ml/min; Est GFR (African American) 71.3 ml/min; Est GFR (Non-African American) 61.5 ml/min; Potassium 3.5 mmol/L (3.5-5.1)
[2022-05-20] MEDS: MIDODRINE HCL 2.5 MG TAB PO SCH ×2 (12:32→18:30)
[2022-05-20] MEDS: VANCOMYCIN HCL 500 MG/10 ML SOLN NG SCH ×2 (12:33→21:55)
[2022-05-20] MEDS: HEPARIN SOD 5,000 UNIT/0.5 ML VIAL SQ SCH ×2 (13:59→22:18)
--- NOTE | 2022-05-20 15:12 | Hospitalist Progress Note ---
Date of Service May 20, 2022 Assessment & Plan (1) Septic shock: (2) GI bleed: (3) Respiratory failure with hypoxia: (4) MARIA ELENA (acute kidney injury): (5) Hyponatremia: (6) DM2 (diabetes mellitus, type 2): (7) HLD (hyperlipidemia): (8) HTN (hypertension): (9) H/O: CVA (cerebrovascular accident): (10) Neurogenic bladder: (11) Paroxysmal atrial fibrillation: (12) Depression with anxiety: Plan 66-year-old lady, resident at [facility] with PMH of CVA with residual right- sided weakness, chronic indwelling Milan catheter for neurogenic bladder, morbid obesity, HTN, GI bleeds, DM2, chronic hyponatremia, PAF on Eliquis was brought to the ED 05/18 from [facility] for concerns of encephalopathy and reported bloody bowel movements. She was noted to be obtunded, mildly hypothermic and with dried blood in oral cavity at ED and hence was intubated. She reportedly had another bowel movement in the ED that was dark maroon without clots. She is being managed for the following: C. difficile colitis Norovirus Ac Gastroenteritis Gram-positive bacteremia: 05/19 echo neg for vegetation, repeat bl cx 05/20 pending Septic shock likely secondary to above Likely metabolic encephalopathy Patient presents with altered mentation and was intubated due to AMS/dried blood in oral cavity Due to persistent hypotension, started on pressors at admission. Milan catheter was changed in the ED. Admitting labs with WBC of 32.5 K, hemoglobin of 11.8, AG metabolic acidosis in ABG. Pro-Maxim and LA elevated. Respiratory BioFire panel was negative. Admitting CXR with mild pulmonary vascular congestion. Admitting CTAP and CT chest: Nonspecific proctocolitis extending from the mid transverse colon distally. Small to moderate right pleural effusion with mild right basilar atelectasis. Admitting CT head with no new acute findings. 05/18 blood culture: GPC bacteremia, follow final results. 05/20 Bl Cx: pending Currently on pressors, metronidazole, vancomycin p.o. and IV, Being managed in ICU by ICU team. GI bleed: Had dark-colored stool in the ED, admitting hemoglobin of 11.8, on Protonix drip, hemoglobin has stabilized, being managed in ICU. MARIA ELENA: Admitting creatinine of 4.06, secondary to septic shock, patient receiving pressors and fluids, creatinine downtrending, monitor BMP Type II NSTEMI: Troponin elevated likely secondary to acute illness, EKG and echo done/reviewed. A-fib on Eliquis: On hold due to GI bleed. Electrolyte abnormalities: Including hyponatremia, MARIA ELENA, metabolic acidosis. improving. DMII: History of, insulin per ICU protocol. CVA, Neurogenic bladder and anxiety: -holding oral medications -urinary catheter changed in the ER DVT PPx: SCD Code Status:FULL CODE Admission and Anticipated Discharge Date Admission Date: May 18, 2022 Subjective Patient is seen and examined at bedside as a follow-up of septic shock, GI bleed, C. difficile, MARIA ELENA, electrolyte abnormalities. Patient was lying in bed, intubated and mechanically ventilated, on Levophed/vasopressin, off sedation, had maroon colored stool overnight per RN. ROS not able due to intubated/sedated status. Physical Exam Physical Exam: Intubated, sedated, mechanically ventilated. Obesity class II On Levophed/vasopressor. Urinary catheter with yellow urine noted Heart: RRR, no murmur Lower extremity: No erythema, no edema Respiratory: Intubated/ventilated, clear to auscultation Neurologic: Sedated on ventilator Results & Data Results & Data ([facility]) Vital Signs (Past 12 Hours) Vital Signs Temp Pulse Resp Pulse Ox O2 Del Method FiO2 05/20/22 12:00 36.7 C 76 21 99 05/20/22 11:00 36.7 C 74 20 99 05/20/22 08:00 Mechanical Vent 05/20/22 12:00 30 05/20/22 11:51 73 22 99 05/20/22 10:00 36.8 C 74 20 98 05/20/22 09:00 36.8 C 75 20 98 05/20/22 08:00 36.9 C 74 21 98 05/20/22 07:00 37.0 C 78 23 98 Mechanical Vent 05/20/22 06:00 37.0 C 75 20 98 05/20/22 08:00 30 05/20/22 07:45 76 21 98 30 05/20/22 05:00 72 22 98 30 05/20/22 04:00 37.1 C 72 22 97 05/20/22 04:00 30
[2022-05-20 16:08] LABS: Hematocrit (blood only) 37.4 % (37.0-47.0); Hemoglobin 13.4 g/dl (12.0-16.0); Mean Corpuscular Hemoglobin 26.8 pg (25.0-34.0); Mean Corpuscular Hgb Conc 35.8 g/dL (32.0-36.0); Mean Corpuscular Volume 74.8 fL (80.0-100.0); Mean Platelet Volume 9.6 fL (9.4-12.4); Platelet Count 366 K/uL (130-400); RDW Coefficient of Variation 14.2 % (11.5-14.5); RDW Standard Deviation 37.6 fL (36.4-46.3); White Blood Count 25.57 K/ul (4.8-10.8)
[2022-05-20 16:49] LABS: Toxic Vacuolation 1+
[2022-05-20 16:50] LABS: Basophils # (auto) 0.16 K/uL (0-0.2); Basophils % (auto) 0.6 %; Eosinophils # (auto) 0.05 K/uL (0-0.50); Eosinophils % (auto) 0.2 %; Immature Granulocytes # (auto) 1.03 K/uL (0.01-0.20); Lymphocytes # (auto) 1.98 K/uL (1.2-3.4); Lymphocytes % (auto) 7.7 %; Monocytes # (auto) 2.07 K/uL (0.11-0.59); Monocytes % (auto) 8.1 %; Neutrophils # (auto) 20.28 K/uL (1.40-6.50); Neutrophils % (auto) 79.4 %
[2022-05-20] MEDS ORDERED: SODIUM CHLORIDE 0.9% 1000ML 500 ML IV ONE (19:32)
[2022-05-20 20:40] LABS: BUN Creatinine Ratio 67.8 (10-20); Calcium 7.5 mg/dl (8.5-10.1); Creatinine Clr Calc Pharmacy 99.1 ml/min; Est GFR (African American) 109.2 ml/min; Est GFR (Non-African American) 94.2 ml/min; Phosphorus 1.4 mg/dl (2.5-4.9); Potassium 3.4 mmol/L (3.5-5.1)
[2022-05-20] MEDS ORDERED: CALCIUM CHLORIDE 10% 1,000 MG in DEXTROSE 5% 50 ML IV STA (20:48)
[2022-05-20] MEDS ORDERED: DEXTROSE 5% IV ONE (21:00)
[2022-05-20] MEDS ORDERED: SODIUM PHOSPHATE IV ONE (21:00)
[2022-05-20] MEDS: LANTUS PER UNIT CHARGE SQ SCH (21:04)
[2022-05-21] MEDS: INSULIN ASPART PER UNIT SC SCH ×7 (00:21→23:30)
[2022-05-21] MEDS: VANCOMYCIN HCL 500 MG/10 ML SOLN NG SCH ×5 (00:21→23:20)
[2022-05-21] MEDS: POTASSIUM CHLORIDE / WTR 20 MEQ/100 ML PLCT IV SCH ×2 (01:06→02:52)
[2022-05-21 03:37] LABS: iSTAT Art Bld Gas pCO2 Correct 33 mmHg (35-46); iSTAT Art Bld Gas pH Corrected 7.455 (7.35-7.45); iSTAT Arterial Blood Gas HCO3 23 meg/L (19-24); iSTAT Arterial Blood Gas pCO2 33 mmHg (35-46); iSTAT Arterial Blood Gas pH 7.45 (7.35-7.45); iSTAT Arterial Blood Gas pO2 88 mmHg (80-95); iSTAT Arterial Blood Gas pO2 C 87; iSTAT Carbon Dioxide 24 mmol/L (24-31); iSTAT FiO2 35 %; iSTAT Hematocrit 40 % (37-47); iSTAT Hemoglobin 13.6 g/dl (12.0-16.0); iSTAT Potassium 4.4 mmol/L (3.3-5.0); iSTAT Site Art Line; iSTAT Sodium 130 mmol/L (135-144)
[2022-05-21] MEDS: metroNIDAZOLE 500 MG/100 ML BAG IV SCH ×3 (03:48→20:28)
[2022-05-21] MEDS: HEPARIN SOD 5,000 UNIT/0.5 ML VIAL SQ SCH (04:11)
[2022-05-21 04:39] LABS: Basophils % (auto) 0.5 %; Eosinophils # (auto) 0.09 K/uL (0-0.50); Eosinophils % (auto) 0.5 %; Hematocrit (blood only) 36.4 % (37.0-47.0); Hemoglobin 13.1 g/dl (12.0-16.0); Immature Granulocytes # (auto) 0.91 K/uL (0.01-0.20); Immature Granulocytes % (auto) 4.9 %; Lymphocytes # (auto) 2.22 K/uL (1.2-3.4); Lymphocytes % (auto) 11.9 %; Mean Corpuscular Hemoglobin 27.1 pg (25.0-34.0); Mean Corpuscular Volume 75.4 fL (80.0-100.0); Mean Platelet Volume 9.6 fL (9.4-12.4); Monocytes # (auto) 1.49 K/uL (0.11-0.59); Neutrophils % (auto) 74.2 %; Platelet Count 318 K/uL (130-400); RDW Coefficient of Variation 13.9 % (11.5-14.5); Red Blood Count 4.83 M/uL (4.20-5.40); White Blood Count 18.61 K/ul (4.8-10.8)
[2022-05-21 04:47] LABS: BUN Creatinine Ratio 76.1 (10-20); Creatinine Clr Calc Pharmacy 127.1 ml/min; Est GFR (African American) 118.5 ml/min; Est GFR (Non-African American) 102.2 ml/min; Magnesium 1.8 mg/dl (1.7-2.4); Phosphorus 2.1 mg/dl (2.5-4.9); Potassium 4.8 mmol/L (3.5-5.1)
[2022-05-21] MEDS: ICU ELECTROLYTE REPLACEMENT PROTOCOL SCH ×2 (04:52→17:40)
[2022-05-21] MEDS ORDERED: SODIUM PHOSPHATE 3 MMOL/1 ML INFUSION IV STA (04:57)
[2022-05-21] MEDS: MAGNESIUM SULFATE / D5W 1 GM/100 ML BAG IV SCH ×2 (05:24→07:54)
[2022-05-21] MEDS: NOREPINEPHRINE/D5W 4 MG/250 ML PLCT IV SCH (05:24)
[2022-05-21] MEDS ORDERED: SODIUM PHOSPHATE 15 MMOL in SODIUM CHLORIDE 0.9% 250 ML IV ONE (05:30)
[2022-05-21 06:14] LABS: iSTAT Arterial Blood Gas HCO3 23 meg/L (19-24); iSTAT Arterial Blood Gas pCO2 34 mmHg (35-46); iSTAT Arterial Blood Gas pH 7.45 (7.35-7.45); iSTAT Arterial Blood Gas pO2 87 mmHg (80-95); iSTAT Carbon Dioxide 24 mmol/L (24-31); iSTAT FiO2 35 %; iSTAT Site Art Line
--- NOTE | 2022-05-21 07:41 | Critical Care Progress Note ---
Date of Service May 21, 2022 Assessment & Plan (1) Severe sepsis with septic shock: (2) Acute respiratory failure with hypoxia: (3) Acute renal failure: (4) DM2 (diabetes mellitus, type 2): (5) Paroxysmal atrial fibrillation: (6) Altered mental status: Plan Impression: 66-year-old female with morbid obesity, chronic indwelling Milan, previous stroke with neurological sequelae admitted with severe sepsis with septic shock, acute renal failure, respiratory failure, acidosis with evidence of colitis Recommendations: 1. Neurologic: Hypoactive delirium likely due to oversedation. We will obtain MRI brain and EEG for further evaluation. Avoid further sedation. 2. Cardiovascular. Maintain mean arterial pressures above 65 mmHg. 5 mg midodrine 3 times daily to help wean off Levophed. Weaning sedation will also help with pressures. Echo reviewed without signs of ischemic changes. LV normal. Right IJ central line and left radial arterial line in place. 3. Pulmonary: Minimal O2 return requirements. Reduce PEEP to 5. Continue lung protective ventilation strategy. ABG with normalized pH and PCO2. Bicarb within the normal range as well. 4. GI: Pancolitis. Positive for C. difficile. Continue precautions and a ntimicrobials. 5. Renal: Renal failure improving. Hyponatremia present likely due to excess free water and SIADH. Monitor BMP closely. Replace electrolytes aggressively. 6. ID: Continue oral vancomycin for C. difficile. Continue IV vancomycin for ISHA alfaro 7. Endocrine: Continue insulin. Appreciate pharmacy input. 8. Heme-onc: Leukocytosis and thrombocytosis improved. Patient discussed on multidisciplinary rounds CRITICAL CARE TIME - I have personally spent 42 minutes of critical care time in the direct management of this patient. This is a life/limb threatening event. This includes time spent evaluating patient, direct bedside care, chart review, placing orders, interpretation of diagnostic studies, discussion with consultants, patient, and family members, as well as other required patient management activities. This time is exclusive of all separately billable procedures, and teaching time and separate from and in addition to any other critical care service time. Admission and Anticipated Discharge Date Admission Date: May 18, 2022 Subjective Patient seen examined. Essentially obtunded. She did receive 2 dose of fentanyl overnight due to agitation. She is not responsive to commands this morning. Does not withdraw from painful stimuli. Remains on low-dose Levophed and vasopressin. Review of Systems Review of Systems: Unobtainable due to reduced consciousness Physical Exam Constitutional: + morbidly obese and + mechanically ventilated Morbid obesity limits sensitivity of exam Neck: trachea midline, no thyromegaly Respiratory: normal respiratory effort, lungs clear to auscultation Cardiovascular: RRR, no murmur, no edema Gastrointestinal (Abdomen): normal bowel sounds, soft, nontender, no hepatosplenomegaly Musculoskeletal: Extremities: extremities normal to inspection Skin: Extremities are cool to the touch distally. Some abdominal mottling noted Neurologic: Sedated on the ventilator Lymphatic: no cervical lymphadenopathy Results & Data Results & Data ([facility]) Vital Signs (Past 12 Hours) Vital Signs Temp Pulse Resp Pulse Ox O2 Del Method FiO2 05/21/22 06:00 36.8 C 86 12 98 05/21/22 05:00 36.7 C 81 14 99 05/21/22 04:00 36.9 C 91 H 15 96 05/21/22 05:14 88 15 98 35 05/21/22 04:25 90 22 97 35 05/21/22 04:00 35 05/21/22 03:00 36.8 C 84 14 98 05/21/22 02:00 36.6 C 80 17 97 05/21/22 01:00 36.8 C 90 16 97 05/21/22 00:00 36.9 C 88 14 98 05/20/22 23:00 37.1 C 89 16 98 05/21/22 00:00 35 05/21/22 00:00 87 05/20/22 21:00 Mechanical Vent 35 05/20/22 22:00 37.1 C 92 H 13 97 35 05/20/22 21:00 37.1 C 114 H 14 96 35 05/20/22 20:00 37.2 C 111 H 18 96 35 05/20/22 20:00 35 05/20/22 22:28 91 H 21 98 35 05/20/22 20:11 105 H 19 96 35 Coding Level of Care Code Critical Care 1st 30-74 mins Diagnoses Severe sepsis with septic shock A41.9; R65.21 Acute respiratory failure with hypoxia J96.01 Acute renal failure N17.9 DM2 (diabetes mellitus, type 2) E11.9 Paroxysmal atrial fibrillation I48.0 Altered mental status R41.82
[2022-05-21] MEDS: VASOPRESSIN 20 UNITS in 0.9 % SODIUM CHLORIDE 100 ML IV SCH (07:55)
[2022-05-21] MEDS: MIDODRINE HCL 2.5 MG TAB PO SCH ×3 (07:56→16:29)
[2022-05-21] MEDS: VANCOMYCIN HCL 1,500 MG in SODIUM CHLORIDE 0.9% 500 ML IV SCH ×2 (07:56→20:28)
[2022-05-21] MEDS: PANTOprazole 40 MG in SYRINGE 0 ML IV SCH ×2 (07:57→20:29)
--- NOTE | 2022-05-21 08:10 | XRay Report ---
SINGLE VIEW CHEST CLINICAL HISTORY: Respiratory failure. FINDINGS: An AP, portable, upright chest radiograph is compared to study dated 05/20/2022 and correlat ed with chest CT dated 05/18/2022. The examination is degraded by portable technique and apical lordot ic positioning. An endotracheal tube, an enteric tube, and a right internal jugular central venous ca theter are unchanged in position. The heart is enlarged. Pulmonary vascular congestion persists. Ther e is a right pleural effusion and bibasilar atelectasis. No pneumothorax is seen. The skeletal struct ures are osteopenic. The bony thorax is grossly intact. IMPRESSION: 1. Stable lines and tubes. 2. Pulmonary vascular congestion persists. 3. Right pleural effusion. ACT 112: Negative or not required by law. Electronically signed by: Santino Funk M.D. 05/21/2022 8:09 AM
--- NOTE | 2022-05-21 09:38 | Magnetic Resonance Report ---
MRI OF THE BRAIN WITHOUT CONTRAST CLINICAL HISTORY: Altered mental status. COMPARISON STUDY: Head CT May 18, 2022. TECHNIQUE: Utilizing a 1.5 Amairani magnet and dedicated coil, multiplanar, multiecho imaging of the bra in was performed without IV contrast. FINDINGS: No acute intracranial hemorrhage, midline shift or mass effect is present. Note is made of multiple hyperintense foci on the diffusion-weighted sequence, largest of which are within the bilate ral occipital lobes. These measure up to 1.5 centers. An additional smaller infarcts within left basa l ganglia is present. Scattered punctate additional infarcts are present. The majority of these are h ypointense on the ADC map. There are a few small old infarct as well. Calvarial signal is normal. Bas al cisterns are patent. There are no extra axial collections. Flow-voids for the major intracranial v essels are present. IMPRESSION: 1. Multiple small scattered foci of restricted diffusion, as described above. These represent acute i nfarcts and favor an embolic etiology. 2. No acute hemorrhage. No mass effect. ACT 112: Negative or not required by law. Electronically signed by: Carlos Sharma M.D. 05/21/2022 9:36 AM
[2022-05-21] MEDS ORDERED: Heparin IV Adult Wt-Based Low-Dose *NO* Bolus Protocol IV SCH (09:48)
--- NOTE | 2022-05-21 10:00 | Pharmacy Report ---
Pharmacy PK ABX Note - Date of Service May 21, 2022 - Assessment and Plan Assessment 66 year old F receiving Vancomycin for treatment of bacteremia. Blood cultures (05/18) (+) Staph spp in 3/. Second isolate in 04/03 is (+) MRSE. Biofire (+) MRSE. Repeat blood cultures (-) at 24h. Also C.diff positive (receiving PO vancomycin and IV flagyl). Renal function improving (SCr 4.06 -->2.68 -->1.53 -->1.25-->0.46). Day # 4 vancomycin Plan Vancomycin * Random vancomycin level this AM, 13.4mcg/mL (~19.5hr level) will be subtherapeutic with 24h dosing. * Change to vancomycin 1500mg IV q12h to start now. Predicted to achieve a steady state AUC 518mg/L.hr. * Will repeat a level around steady state of new regimen. Pharmacy will continue to follow and will adjust dose/frequency as necessary. Thank you. Pharmacy has transitioned to AUC monitoring for vancomycin. AUC/SOL is the preferred PK/PD target and is associated with decreased risk of nephrotoxicity compared to traditional trough targets.
[2022-05-21] MEDS: HEPARIN SODIUM/DEXTROSE 25,000 UNITS/500 ML BAG IV SCH (10:35)
--- NOTE | 2022-05-21 10:48 | Electrocardiogram Report ---
Test Reason : Blood Pressure : / mmHG Vent. Rate : 085 BPM Atrial Rate : 085 BPM P-R Int : 170 ms QRS Dur : 082 ms QT Int : 396 ms P-R-T Axes : 073 -18 073 degrees QTc Int : 471 ms Normal sinus rhythm Low voltage QRS Borderline ECG When compared with ECG of 20-MAY-2022 05:19, QT has shortened Confirmed by Ramses Pacheco ([id number]) on 05/21/2022 10:48:23 AM Referred By: REFERRED SELF Confirmed By:Dimitris Pacheco
--- NOTE | 2022-05-21 10:56 | Palliative Care Consultation ---
Date of Consultation May 21, 2022 Assessment & Plan (1) Altered mental status: with sepsis and multiple new cerebral infarcts (2) Palliative care encounter: Lula is clearly not capable of decision making at this time. EEG results are pending. Review of her chart shows a POLST form completed in October of 2021 which indicates full code, full treatment. Per Dr. Del Cid's note from 05/19, he spoke with her sister, Yelitza Perez, and Lula has an advance directive. I called Yelitza's number with no answer. Will continue to reach out to discuss goals of care further with Yelitza. [id number] Called Yelitza again. No answer. Will follow. History of Present Illness Reason for Consultation: goals of care Requesting Physician: Dr. Chaudhari Attending Physician: Irineo Guzman MD History of Present Illness 66 yo with history of prior CVA who resides at [facility]. She was admitted with sepsis and shock, with evidence of colitis with dark stools. She does have history of afib and had been on eliquis prior to admission. Notes indicate that she was encephalopathic on admission. She is currently intubated on AC vent support. Sedation has been weaned off and she is currently having an EEG to evaluate persistent encephalopathy. She had an MRI of the brain earlier this morning which showed multiple scattered acute infarcts with bilateral occipital lobe infarcts measuring up to 1.5 cm. Allergies Allergy/AdvReac Type Severity Reaction Status Date / Time adhesive tape Allergy Unknown Unknown Verified 05/18/22 18:23 aspirin Allergy Unknown Unknown Verified 05/18/22 18:23 atorvastatin Allergy Unknown Unknown Verified 05/18/22 18:23 citalopram [From Celexa] Allergy Unknown Unknown Verified 05/18/22 18:23 Iodinated Contrast Media Allergy Unknown Unknown Verified 05/18/22 18:23 iodine Allergy Unknown Unknown Verified 05/18/22 18:23 latex Allergy Unknown Unknown Verified 05/18/22 18:23 sertraline [From Zoloft] Allergy Unknown Unknown Verified 05/18/22 18:23 Sulfa (Sulfonamide Allergy Unknown Unknown Verified 05/18/22 18:23 Antibiotics) ekg leads Allergy Unknown Unknown Uncoded 05/18/22 18:23 Home Medications Medication Instructions Recorded Confirmed Type acetaminophen 325 mg tablet 650 mg PO Q6 PRN Pain 03/20/22 05/18/22 History acetaminophen 325 mg tablet 650 mg PO Q6 PRN temp>101 03/20/22 05/18/22 History apixaban 5 mg tablet (Eliquis) 5 mg PO BID 03/20/22 05/18/22 History cholecalciferol (vitamin D3) 125 125 mcg PO DAILY 03/20/22 05/18/22 History mcg (5,000 unit) tablet (Vitamin D3) diltiazem HCl 180 mg 180 mg PO DAILY 03/20/22 05/18/22 History capsule,extended release 24 hr furosemide 40 mg tablet 40 mg PO DAILY 03/20/22 05/18/22 History gabapentin 100 mg capsule 200 mg PO DAILY 03/20/22 05/18/22 History lisinopril 10 mg tablet 10 mg PO DAILY 03/20/22 05/18/22 History pravastatin 40 mg tablet 40 mg PO DAILY 03/20/22 05/18/22 History sitagliptin phosphate 100 mg 100 mg PO DAILY 03/20/22 05/18/22 History tablet (Januvia) sotalol 80 mg tablet 80 mg PO BID 03/20/22 05/18/22 History trazodone 150 mg tablet 75 mg PO HS 03/20/22 05/18/22 History insulin glargine 100 unit/mL (3 15 unit (0.15 mL) subcut HS #15 mL 03/24/22 05/18/22 Rx mL) subcutaneous pen (Lantus Solostar U-100 Insulin) Boost Glucose Control 8 oz PO . AT BREAKFAST 05/18/22 05/18/22 History cyanocobalamin (vitamin B-12) 500 500 mcg PO Q OTHER DAY 05/18/22 05/18/22 History mcg tablet (Vitamin B-12) duloxetine 60 mg capsule,delayed 60 mg PO DAILY 05/18/22 05/18/22 History release (Cymbalta) tramadol 50 mg tablet 50 mg PO Q8H PRN pain level 6-10 05/18/22 05/18/22 History Patient History Medical History Acute UTI Altered mental status Depression with anxiety DM2 (diabetes mellitus, type 2) H/O: CVA (cerebrovascular accident) HLD (hyperlipidemia) HTN (hypertension) Neurogenic bladder Paroxysmal atrial fibrillation Surgical History H/O: hysterectomy Family History Other Heart disease Social History Smoking Status: Unknown if ever smoked Second Hand Exposure: No; Do You Dip or Chew Tobacco: No; Tobacco Cessation Education Requested by Patient: No Hx Alcohol Use: No Hx Substance Use: No Preferred Language: Slovak Communication Ability: Unable Social Insurance Specialist Required: No Beliefs That Will Affect Care: None Current Living Situation: Residential Other Information That Helps Us Care for You: No Feels Safe at Home: Yes Safety Concerns: Feels Safe At This Time Assistive Devices: Wheelchair Review of Systems Review of Systems: Unobtainable due to cognitive status Physical Exam Constitutional: + ill appearing and + mechanically ventilated Respiratory: Ventilator support Cardiovascular: Rate/Rhythm: regular rate and regular rhythm toes purple Neurologic: deeply lethargic eyes flutter when her name is called unable to follow any commands for me Results & Data ([facility]) Vital Signs (Past 12 Hours) Vital Signs Temp Pulse Resp Pulse Ox FiO2 05/21/22 10:33 84 21 92 35 05/21/22 09:47 16 35 05/21/22 07:40 87 12 97 35 05/21/22 06:00 98.2 F 86 12 98 05/21/22 05:00 98.1 F 81 14 99 05/21/22 04:00 98.4 F 91 H 15 96 05/21/22 05:14 88 15 98 35 05/21/22 04:25 90 22 97 35 05/21/22 04:00 35 05/21/22 03:00 98.2 F 84 14 98 05/21/22 02:00 97.9 F 80 17 97 05/21/22 01:00 98.2 F 90 16 97 05/21/22 00:00 98.4 F 88 14 98 05/20/22 23:00 98.8 F 89 16 98 05/21/22 00:00 35 05/21/22 00:00 87 PG Care Time/CCT Total # of Minutes Spent Total Time Spent with Patient: Total time spent is greater than 50% in coordination of care (as documented) at patient's floor/unit and/or counseling patient: Coding Level of Care Code 94684 INT INP/OBS CARE 40MIN Diagnoses Altered mental status R41.82 Palliative care encounter Z51.5
[2022-05-21 11:17] LABS: Partial Thromboplastin Ratio 1.2; Partial Thromboplastin Time 33.3 Seconds (21.0-31.0)
[2022-05-21] MEDS: PEPTAMEN INTENSE VHP 1.0 CAL 1,000 ML BAG OG SCH (11:56)
[2022-05-21] MEDS: TUBE FEEDING WATER FLUSH OG SCH ×4 (12:15→23:09)
--- NOTE | 2022-05-21 13:55 | Neurology Consultation ---
Date of Consultation May 21, 2022 Assessment & Plan (1) Ischemic stroke: Plan Neurology Consultation Assessment & Plan: Impression: pt with b/l ischemic stroke in setting of septic shock. her stroke is small in nature and should not causing her encephalopathy. her current encephalopathy is likely due to her sepsis and other organ failure. pt is off OAC due to GI bleed currently and on heparic SQ for DVT prevention. echo negative for vegetation. Recommendations: * continue tx for sepsis and ARF * continue to hold blood thinners/OAC due to her GI bleed issue. once she is more stable and no suggestion of bleed, can restart Eliquis as before. * Images:consider getting GEORGETTE for better view of the heart for potential clot/vegetation, consult cardiology for best time to do this. * Permissive Hypertension next 24-48 hrs. Keep SBP goal range less than 220. Avoid hypotension. Do not stop beta-rivka if on it. * * Long-term SBP goal less than 130. * Avoid hypovolemia and hypotension. * DVT prevention therapy * Avoid hypoglycemia, serum glucose goal during hospitalization: 140-180 * Long-term HgA1c goal less than 7 * Start statin if not on it.Long-term LDL goal of less than 70. * Head of bed up 30 degree if possible. * Stroke education * aspiration precaution. * Physical/occupational therapy and speech path evaluations when possible. Chart reviewed I have spent more than 50% educating patient about potential diagnosis and neurological evaluation and coordinating care with patient's treatment team. Total time spent: 80 min (this includes chart review and documentation) Dr. Nasim Urbina MD [facility] Neurology Chief Complaint: stroke HISTORY OF PRESENT ILLNESS:pt with mri brain noted for b/l ischemic stroke. pt with septic shock and ARF and hx of atrial fib. eliquis stopped due to GI bleed. pt currently intubated and sedated. chart reviewed. Admission/Initial HPI:The patient is a 66-year-old woman with a past medical of CVA with residual right-sided hemiplegia, type 2 diabetes, hypertension, depression/anxiety, A-fib on Eliquis, hyperlipidemia, neurogenic bladder with chronic indwelling Milan catheter who presents emergency department from her long-term facility at [facility] for altered mental status and ongoing diarrhea over the past 24 hours. Per EMS the patient's blood pressure was in the 90s/70s prior to arrival. It was also reported that the patient was suspected to have an ileus. The patient is full code. On evaluation the patient is chronically ill-appearing and noted to be hypotensive in the 50s/30s. She is alert to voice, opens eyes, and will say her name upon request. Heart rate is in the 80s. She is afebrile. Patient appears clinically dry. She was noted to have gross bloody stool in her brief which was sent for testing. The patient's urinary catheter demonstrates encrusted debris throughout the tube with foul smelling dark urine. Milan catheter was replaced per nursing. I did perform a limited bedside cardiac ultrasound that demonstrated 100% IVC respiratory variability. EF appears grossly normal. No overt right heart strain. No overt pericardial effusion. Sepsis protocols were initiated including >30 cc/kg of IV fluids. Empiric Zosyn ordered given the patient's critical illness. Type and cross with 2 units of PRBCs to hold also ordered. I-STAT chemistry was obtained and demonstrated sodium of 126 which is suspected to be related to hypovolemia given her exam and additional lab results with a H/H of 15/44, creatinine of 4.5 with BUN of 73. Potassium 4.8. Bicarbonate is 16 without anion gap elevation consistent with the patient's diarrheal illness. EKG without overt acute ischemia. WBC 32.5K with neutrophil predominance and left shift. H/H is 14/41, similar to prior and suspected to reflect component of hemoconcentration given patient's clinical dry appearance and acute renal failure. Serum chemistry confirms i- STAT with acute renal failure with creatinine of 4 with BUN of 85 with elevated anion gap of 19 and bicarb of 15. VBG with pH of 7.21 and PCO2 of 41. Sodium corrects to 128-129 with glucose 188. Initial lactic acid 3.1. Magnesium 1.5 with repletion initiated. LFTs without significant abnormality. High- sensitivity troponin 20.5, nonspecific in the setting of the patient's renal failure. Lipase is not elevated. Procalcitonin is elevated at 2.5, consistent with suspected sepsis. Respiratory viral panel/BioFire was negative. Following administration of 30 cc/kg IV fluids/normal saline patient remained hypotensive and so Levophed was initiated. Additional IV fluids administered for a total of 3700 cc of NSS with persistent of hypotension as Levophed uptitrated. Repeat evaluation of IVC still with 100% respiratory variability and so additional liter of lactated Ringer's initiated. IV vancomycin also ordered to broaden antibiotic coverage in the setting of severe sepsis. CT of the head negative for acute abnormalities. Microvascular ischemic disease is seen as it is ill-defined hypodense foci within the left frontal lobe likely representing age-indeterminate lacunar infarcts. CT of the chest and abdomen pelvis also obtained and demonstrates nonspecific proctocolitis extending from the mid transverse colon distally. Trace free pelvic fluid is seen. Small to moderate right pleural effusion with mild right basilar atelectasis. Case was discussed with Dr. Gusman, [facility] hospitalist, who will evaluate the patient for admission. Case also discussed with Dr. Del Cid [facility] ICU rn neurosurgical and Jason Green [facility] ICU OSTEOLOGY TEACHER. Appreciate assistance. While the patient is still alert to voice and speaking when asked we agreed to proceed with intubation for airway protection given the patient's critical illness with ongoing hypotension and anticipated need for further fluid replacement vasopressors. Verbal consent obtained from the patient. Intubation was performed per procedure note without complications. Further management per ICU and admitting team. Past Medical History: See chart Meds: See chart Social & Family History: See chart Review of Systems: Per HPI. Physical Exam: Mental Status: intubated and nonverbal. sedated. Cranial Nerves: PERRL.eyes mid position. intact corneal b/l. face appears symmeteric. Motor: no abnormal movements. normal tone. edema b/l leg. Sensory: no withdrawal to pain. Gait:normal. Reflexes: Toes down bilaterally History of Present Illness Attending Physician: Irineo Guzman MD Allergies Allergy/AdvReac Type Severity Reaction Status Date / Time adhesive tape Allergy Unknown Unknown Verified 05/18/22 18:23 aspirin Allergy Unknown Unknown Verified 05/18/22 18:23 atorvastatin Allergy Unknown Unknown Verified 05/18/22 18:23 citalopram [From Celexa] Allergy Unknown Unknown Verified 05/18/22 18:23 Iodinated Contrast Media Allergy Unknown Unknown Verified 05/18/22 18:23 iodine Allergy Unknown Unknown Verified 05/18/22 18:23 latex Allergy Unknown Unknown Verified 05/18/22 18:23 sertraline [From Zoloft] Allergy Unknown Unknown Verified 05/18/22 18:23 Sulfa (Sulfonamide Allergy Unknown Unknown Verified 05/18/22 18:23 Antibiotics) ekg leads Allergy Unknown Unknown Uncoded 05/18/22 18:23 Home Medications Medication Instructions Recorded Confirmed Type acetaminophen 325 mg tablet 650 mg PO Q6 PRN Pain 03/20/22 05/18/22 History acetaminophen 325 mg tablet 650 mg PO Q6 PRN temp>101 03/20/22 05/18/22 History apixaban 5 mg tablet (Eliquis) 5 mg PO BID 03/20/22 05/18/22 History cholecalciferol (vitamin D3) 125 125 mcg PO DAILY 03/20/22 05/18/22 History mcg (5,000 unit) tablet (Vitamin D3) diltiazem HCl 180 mg 180 mg PO DAILY 03/20/22 05/18/22 History capsule,extended release 24 hr furosemide 40 mg tablet 40 mg PO DAILY 03/20/22 05/18/22 History gabapentin 100 mg capsule 200 mg PO DAILY 03/20/22 05/18/22 History lisinopril 10 mg tablet 10 mg PO DAILY 03/20/22 05/18/22 History pravastatin 40 mg tablet 40 mg PO DAILY 03/20/22 05/18/22 History sitagliptin phosphate 100 mg 100 mg PO DAILY 03/20/22 05/18/22 History tablet (Januvia) sotalol 80 mg tablet 80 mg PO BID 03/20/22 05/18/22 History trazodone 150 mg tablet 75 mg PO HS 03/20/22 05/18/22 History insulin glargine 100 unit/mL (3 15 unit (0.15 mL) subcut HS #15 mL 03/24/22 05/18/22 Rx mL) subcutaneous pen (Lantus Solostar U-100 Insulin) Boost Glucose Control 8 oz PO . AT BREAKFAST 05/18/22 05/18/22 History cyanocobalamin (vitamin B-12) 500 500 mcg PO Q OTHER DAY 05/18/22 05/18/22 His tory mcg tablet (Vitamin B-12) duloxetine 60 mg capsule,delayed 60 mg PO DAILY 05/18/22 05/18/22 History release (Cymbalta) tramadol 50 mg tablet 50 mg PO Q8H PRN pain level 6-10 05/18/22 05/18/22 History Patient History Medical History Acute UTI Altered mental status Depression with anxiety DM2 (diabetes mellitus, type 2) H/O: CVA (cerebrovascular accident) HLD (hyperlipidemia) HTN (hypertension) Neurogenic bladder Paroxysmal atrial fibrillation Surgical History H/O: hysterectomy Family History Other Heart disease Social History Smoking Status: Unknown if ever smoked Second Hand Exposure: No; Do You Dip or Chew Tobacco: No; Tobacco Cessation Education Requested by Patient: No Hx Alcohol Use: No Hx Substance Use: No Preferred Language: Ecuadorean Communication Ability: Unable Doorshaker Required: No Beliefs That Will Affect Care: None Current Living Situation: Snf Other Information That Helps Us Care for You: No Feels Safe at Home: Yes Safety Concerns: Feels Safe At This Time Assistive Devices: Wheelchair Results & Data ([facility]) Vital Signs (Past 12 Hours) Vital Signs Temp Pulse Resp Pulse Ox FiO2 05/21/22 10:33 84 21 92 35 05/21/22 09:47 16 35 05/21/22 07:40 87 12 97 35 05/21/22 06:00 36.8 C 86 12 98 05/21/22 05:00 36.7 C 81 14 99 05/21/22 04:00 36.9 C 91 H 15 96 05/21/22 05:14 88 15 98 35 05/21/22 04:25 90 22 97 35 05/21/22 04:00 35 05/21/22 03:00 36.8 C 84 14 98 05/21/22 02:00 36.6 C 80 17 97
[2022-05-21] MEDS ORDERED: VASOPRESSIN 20 UNITS in 0.9 % SODIUM CHLORIDE 100 ML IV SCH (14:45)
[2022-05-21] MEDS ORDERED: fentaNYL citrate 100 MCG/2 ML VIAL IV STA (14:50)
--- NOTE | 2022-05-21 15:46 | Hospitalist Progress Note ---
Date of Service May 21, 2022 Assessment & Plan (1) Septic shock: (2) GI bleed: (3) Respiratory failure with hypoxia: (4) MARIA ELENA (acute kidney injury): (5) Hyponatremia: (6) DM2 (diabetes mellitus, type 2): (7) HLD (hyperlipidemia): (8) HTN (hypertension): (9) H/O: CVA (cerebrovascular accident): (10) Neurogenic bladder: (11) Paroxysmal atrial fibrillation: (12) Depression with anxiety: Plan 66-year-old lady, resident at [facility] with PMH of CVA with residual right- sided weakness, chronic indwelling Milan catheter for neurogenic bladder, morbid obesity, HTN, GI bleeds, DM2, chronic hyponatremia, PAF on Eliquis was brought to the ED 05/18 from [facility] for concerns of encephalopathy and reported bloody bowel movements. She was noted to be obtunded, mildly hypothermic and with dried blood in oral cavity at ED and hence was intubated. She reportedly had another bowel movement in the ED that was dark maroon without clots. She is being managed for the following: C. difficile colitis Norovirus Ac Gastroenteritis Gram-positive bacteremia: 05/19 echo neg for vegetation, repeat bl cx 05/20 pending Septic shock likely secondary to above Likely metabolic encephalopathy Patient presents with altered mentation and was intubated due to AMS/dried blood in oral cavity Due to persistent hypotension, started on pressors at admission. Milan catheter was changed in the ED. Admitting labs with WBC of 32.5 K, hemoglobin of 11.8, AG metabolic acidosis in ABG. Pro-Maxim and LA elevated. Respiratory BioFire panel was negative. Admitting CXR with mild pulmonary vascular congestion. Admitting CTAP and CT chest: Nonspecific proctocolitis extending from the mid transverse colon distally. Small to moderate right pleural effusion with mild right basilar atelectasis. Admitting CT head with no new acute findings. 05/21 MRI Brain: Multiple small acute infarcts (b/l occipital lobes/left basal ganglia/other areas), likely embolic etiology. No hge or mass effect. 05/18 blood culture: GPC bacteremia, follow final results. 05/20 Bl Cx: pending Currently on pressors, metronidazole, vancomycin p.o. and IV. Being managed in ICU by ICU team. Neuro evaled. EEG pending. GI bleed: Had dark-colored stool in the ED, admitting hemoglobin of 11.8, on Protonix drip, hemoglobin has stabilized, being managed in ICU. MARIA ELENA: Admitting creatinine of 4.06, secondary to septic shock, resolved. Type II NSTEMI: Troponin elevated likely secondary to acute illness, EKG and echo done/reviewed. A-fib on Eliquis: On heparin drip Electrolyte abnormalities: Including hyponatremia, MARIA ELENA, metabolic acidosis. improving. DMII: History of, insulin per ICU protocol. CVA, Neurogenic bladder and anxiety: -holding oral medications -urinary catheter changed in the ER DVT PPx: Hep drip Code Status:FULL CODE Admission and Anticipated Discharge Date Admission Date: May 18, 2022 Subjective Patient is seen and examined at bedside as a follow-up of septic shock, GI bleed, C. difficile, MARIA ELENA, electrolyte abnormalities. Patient was lying in bed, intubated and mechanically ventilated, on vasopressin, off sedation, no opening of eyes on calling name, Hb has been stable. ROS not able due to intubated/sedated status. Physical Exam Physical Exam: Intubated, obtunded, mechanically ventilated. Obesity class II On vasopressor. Urinary catheter with yellow urine noted Heart: RRR, no murmur Lower extremity: No erythema, no edema Respiratory: Intubated/ventilated, clear to auscultation Neurologic: Obtunded on ventilator. Results & Data Results & Data ([facility]) Vital Signs (Past 12 Hours) Vital Signs Temp Pulse Resp Pulse Ox O2 Del Method FiO2 05/21/22 08:00 86 05/21/22 12:00 35 05/21/22 08:00 35 05/21/22 12:00 101 H 05/21/22 08:00 101 H 05/21/22 14:00 36.5 C 101 H 21 91 05/21/22 13:00 36.4 C L 89 12 96 05/21/22 12:00 36.3 C L 92 H 16 95 05/21/22 11:00 36.3 C L 87 15 05/21/22 10:00 36.5 C 85 16 92 Mechanical Vent 35 05/21/22 08:00 36.7 C 93 H 13 96 05/21/22 07:00 36.7 C 85 14 99 CPAP 35 05/21/22 10:33 84 21 92 35 05/21/22 09:47 16 35 05/21/22 07:40 87 12 97 35 05/21/22 06:00 36.8 C 86 12 98 05/21/22 05:00 36.7 C 81 14 99 05/21/22 04:00 36.9 C 91 H 15 96 05/21/22 05:14 88 15 98 35 05/21/22 04:25 90 22 97 35 05/21/22 04:00 35
--- NOTE | 2022-05-21 16:28 | Cardiology Consultation ---
Date of Consultation May 21, 2022 Assessment & Plan (1) Ischemic stroke: (2) Palliative care encounter: (3) Severe sepsis with septic shock: (4) Altered mental status: (5) Acute respiratory failure with hypoxia: (6) Acute renal failure: (7) High anion gap metabolic acidosis: (8) Septic shock: (9) H/O: CVA (cerebrovascular accident): (10) HTN (hypertension): (11) Paroxysmal atrial fibrillation: Plan Given the current clinical context I doubt that a transesophageal echocardiogram would change consultant but should the family wish to continue to pursue aggressive measures we will perform while she is still intubated History of Present Illness Reason for Consultation: GEORGETTE Requesting Physician: Critical care Attending Physician: Irineo Guzman MD History of Present Illness The patient is a 58-year-old woman who is currently intubated. History obtained through review of medical records and discussion with bedside nursing. The patient was admitted on 05/18/2022 with septic shock and metabolic encephalopathy. She is still requiring vasopressor support and remains unresponsive to verbal, physical and painful stimuli. She was seen by neurology today and they recommended a GEORGETTE to evaluate for possible cardiac source for bilateral ischemic stroke. The palliative care team also saw the patient today but was unable to reach her power of nursing services manager to discuss goals of care. Allergies Allergy/AdvReac Type Severity Reaction Status Date / Time adhesive tape Allergy Unknown Unknown Verified 05/18/22 18:23 aspirin Allergy Unknown Unknown Verified 05/18/22 18:23 atorvastatin Allergy Unknown Unknown Verified 05/18/22 18:23 citalopram [From Celexa] Allergy Unknown Unknown Verified 05/18/22 18:23 Iodinated Contrast Media Allergy Unknown Unknown Verified 05/18/22 18:23 iodine Allergy Unknown Unknown Verified 05/18/22 18:23 latex Allergy Unknown Unknown Verified 05/18/22 18:23 sertraline [From Zoloft] Allergy Unknown Unknown Verified 05/18/22 18:23 Sulfa (Sulfonamide Allergy Unknown Unknown Verified 05/18/22 18:23 Antibiotics) ekg leads Allergy Unknown Unknown Uncoded 05/18/22 18:23 Home Medications Medication Instructions Recorded Confirmed Type acetaminophen 325 mg tablet 650 mg PO Q6 PRN Pain 03/20/22 05/18/22 History acetaminophen 325 mg tablet 650 mg PO Q6 PRN temp>101 03/20/22 05/18/22 History apixaban 5 mg tablet (Eliquis) 5 mg PO BID 03/20/22 05/18/22 History cholecalciferol (vitamin D3) 125 125 mcg PO DAILY 03/20/22 05/18/22 History mcg (5,000 unit) tablet (Vitamin D3) diltiazem HCl 180 mg 180 mg PO DAILY 03/20/22 05/18/22 History capsule,extended release 24 hr furosemide 40 mg tablet 40 mg PO DAILY 03/20/22 05/18/22 History gabapentin 100 mg capsule 200 mg PO DAILY 03/20/22 05/18/22 History lisinopril 10 mg tablet 10 mg PO DAILY 03/20/22 05/18/22 History pravastatin 40 mg tablet 40 mg PO DAILY 03/20/22 05/18/22 History sitagliptin phosphate 100 mg 100 mg PO DAILY 03/20/22 05/18/22 History tablet (Januvia) sotalol 80 mg tablet 80 mg PO BID 03/20/22 05/18/22 History trazodone 150 mg tablet 75 mg PO HS 03/20/22 05/18/22 History insulin glargine 100 unit/mL (3 15 unit (0.15 mL) subcut HS #15 mL 03/24/22 05/18/22 Rx mL) subcutaneous pen (Lantus Solostar U-100 Insulin) Boost Glucose Control 8 oz PO . AT BREAKFAST 05/18/22 05/18/22 History cyanocobalamin (vitamin B-12) 500 500 mcg PO Q OTHER DAY 05/18/22 05/18/22 History mcg tablet (Vitamin B-12) duloxetine 60 mg capsule,delayed 60 mg PO DAILY 05/18/22 05/18/22 History release (Cymbalta) tramadol 50 mg tablet 50 mg PO Q8H PRN pain level 6-10 05/18/22 05/18/22 History Patient History Medical History Acute UTI Altered mental status Depression with anxiety DM2 (diabetes mellitus, type 2) H/O: CVA (cerebrovascular accident) HLD (hyperlipidemia) HTN (hypertension) Neurogenic bladder Paroxysmal atrial fibrillation Surgical History H/O: hysterectomy Family History Other Heart disease Social History Smoking Status: Unknown if ever smoked Second Hand Exposure: No; Do You Dip or Chew Tobacco: No; Tobacco Cessation Education Requested by Patient: No Hx Alcohol Use: No Hx Substance Use: No Preferred Language: Cameroonian Communication Ability: Unable Body Work Auto Trimmer Required: No Beliefs That Will Affect Care: None Current Living Situation: [facility] Other Information That Helps Us Care for You: No Feels Safe at Home: Yes Safety Concerns: Feels Safe At This Time Assistive Devices: Wheelchair Review of Systems Review of Systems: Unobtainable due to endotracheal tube and Unobtainable due to reduced consciousness Physical Exam Physical Exam: General: Intubated, off sedation with no response to physical, verbal or painful stimuli HEENT: Normocephalic, atraumatic. Pupils equal, round and reactive to light and accommodation. Extraocular muscles are intact. Anicteric sclera. Moist mucous membranes. Neck: No JVD. No bruit. Cardiovascular: Regular. Positive S-4. Normal S-1 and S-2. No S-3. No murmurs or rubs. Pulmonary: Clear to auscultation B/L. No rales, rhonchi or wheezing Abdomen: Bowel sounds x 4, soft. No rebound, guarding or tenderness. No organomegaly. Extremities: No clubbing, cyanosis or edema. +2 pedal pulses bilaterally. Skin: Warm and dry. Results & Data ([facility]) Vital Signs (Past 12 Hours) Vital Signs Temp Pulse Resp Pulse Ox O2 Del Method FiO2 05/21/22 15:20 128 H 31 H 91 35 05/21/22 08:00 CPAP, Mechanical Vent 35 05/21/22 08:00 86 05/21/22 12:00 35 05/21/22 08:00 35 05/21/22 12:00 101 H 05/21/22 08:00 101 H 05/21/22 14:00 36.5 C 101 H 21 91 05/21/22 13:00 36.4 C L 89 12 96 05/21/22 12:00 36.3 C L 92 H 16 95 05/21/22 11:00 36.3 C L 87 15 05/21/22 10:00 36.5 C 85 16 92 Mechanical Vent 35 05/21/22 08:00 36.7 C 93 H 13 96 05/21/22 07:00 36.7 C 85 14 99 CPAP 35 05/21/22 10:33 84 21 92 35 05/21/22 09:47 16 35 05/21/22 07:40 87 12 97 35 05/21/22 06:00 36.8 C 86 12 98 05/21/22 05:00 36.7 C 81 14 99 05/21/22 05:14 88 15 98 35 05/21/22 04:25 90 22 97 35
[2022-05-21] MEDS ORDERED: STAT IV Infusion **Titration per Protocol STA (16:51)
[2022-05-21 16:58] LABS: Partial Thromboplastin Ratio 1.4; Partial Thromboplastin Time 38.6 Seconds (21.0-31.0)
[2022-05-21] MEDS: PHENYLEPHRINE/NSS 25 MG/250 ML BAG IV SCH ×2 (17:40→23:19)
[2022-05-21] MEDS: LANTUS PER UNIT CHARGE SQ SCH (20:29)
--- NOTE | 2022-05-21 21:29 | Electroencephalogram ---
EEG Procedure Note Date of Service May 21, 2022 Start / End Times Start Time: 10:50 End Time: 11:10 Referring Physician Fara Sawyer MD History A 66 year old female with encephalopathy. Patient intubated and unresponsive. EEG performed for evaluation of epileptiform activity. Home Medication List Medication Instructions Recorded Confirmed Type acetaminophen 325 mg tablet 650 mg PO Q6 PRN Pain 03/20/22 05/18/22 History acetaminophen 325 mg tablet 650 mg PO Q6 PRN temp>101 03/20/22 05/18/22 History apixaban 5 mg tablet (Eliquis) 5 mg PO BID 03/20/22 05/18/22 History cholecalciferol (vitamin D3) 125 125 mcg PO DAILY 03/20/22 05/18/22 History mcg (5,000 unit) tablet (Vitamin D3) diltiazem HCl 180 mg 180 mg PO DAILY 03/20/22 05/18/22 History capsule,extended release 24 hr furosemide 40 mg tablet 40 mg PO DAILY 03/20/22 05/18/22 History gabapentin 100 mg capsule 200 mg PO DAILY 03/20/22 05/18/22 History lisinopril 10 mg tablet 10 mg PO DAILY 03/20/22 05/18/22 History pravastatin 40 mg tablet 40 mg PO DAILY 03/20/22 05/18/22 History sitagliptin phosphate 100 mg 100 mg PO DAILY 03/20/22 05/18/22 History tablet (Januvia) sotalol 80 mg tablet 80 mg PO BID 03/20/22 05/18/22 History trazodone 150 mg tablet 75 mg PO HS 03/20/22 05/18/22 History insulin glargine 100 unit/mL (3 15 unit (0.15 mL) subcut HS #15 mL 03/24/22 05/18/22 Rx mL) subcutaneous pen (Lantus Solostar U-100 Insulin) Boost Glucose Control 8 oz PO . AT BREAKFAST 05/18/22 05/18/22 History cyanocobalamin (vitamin B-12) 500 500 mcg PO Q OTHER DAY 05/18/22 05/18/22 History mcg tablet (Vitamin B-12) duloxetine 60 mg capsule,delayed 60 mg PO DAILY 05/18/22 05/18/22 History release (Cymbalta) tramadol 50 mg tablet 50 mg PO Q8H PRN pain level 6-10 05/18/22 05/18/22 History Description This is a 21 electrode EEG with a single channel dedicated to limited EKG. The electrodes were placed in accordance with the International 10-20 system. REPORT: At the onset of EEG the patient is in an altered mental state. The background is symmetric. The posterior dominant rhythm is not seen. Instead the background is suppressed with 2-3 Hz polymorphic delta activity with superimposed faster frequencies which is likely artifactual. No epilpetiform discharges are seen. Interpretation IMPRESSION: This is an abnormal routine EEG in a patient with altered mentation due to severe background suppression suggestive of a severe non specific encephalopathy. No epileptiform discharges or electrographic seizurs are seen.
[2022-05-21] MEDS ORDERED: SODIUM CHLORIDE 0.9% 1000ML 500 ML IV ONE (22:00)
[2022-05-22 00:47] LABS: Partial Thromboplastin Ratio 1.9
[2022-05-22 01:01] LABS: Partial Thromboplastin Time 51.8 Seconds (21.0-31.0)
[2022-05-22] MEDS: TUBE FEEDING WATER FLUSH OG SCH ×6 (02:30→22:11)
[2022-05-22] MEDS: INSULIN ASPART PER UNIT SC SCH ×5 (04:31→21:17)
[2022-05-22] MEDS: metroNIDAZOLE 500 MG/100 ML BAG IV SCH ×3 (04:34→20:28)
[2022-05-22 04:48] LABS: Hematocrit (blood only) 33.2 % (37.0-47.0); Hemoglobin 11.7 g/dl (12.0-16.0); Mean Corpuscular Hemoglobin 27.1 pg (25.0-34.0); Mean Corpuscular Hgb Conc 35.2 g/dL (32.0-36.0); Mean Corpuscular Volume 76.9 fL (80.0-100.0); Platelet Count 242 K/uL (130-400); RDW Coefficient of Variation 13.9 % (11.5-14.5); RDW Standard Deviation 38.1 fL (36.4-46.3); Red Blood Count 4.32 M/uL (4.20-5.40); White Blood Count 19.82 K/ul (4.8-10.8)
[2022-05-22 05:10] LABS: Basophils # (auto) 0.12 K/uL (0-0.2); Basophils % (auto) 0.6 %; Echinocytes 1+; Eosinophils # (auto) 0.18 K/uL (0-0.50); Eosinophils % (auto) 0.9 %; Immature Granulocytes # (auto) 1.41 K/uL (0.01-0.20); Immature Granulocytes % (auto) 7.1 %; Lymphocytes # (auto) 2.45 K/uL (1.2-3.4); Lymphocytes % (auto) 12.4 %; Monocytes # (auto) 1.63 K/uL (0.11-0.59); Monocytes % (auto) 8.2 %; Neutrophils # (auto) 14.03 K/uL (1.40-6.50); Neutrophils % (auto) 70.8 %; Polychromasia 1+; Target Cells 1+
[2022-05-22] MEDS: VANCOMYCIN HCL 500 MG/10 ML SOLN NG SCH ×3 (05:37→17:48)
[2022-05-22] MEDS ORDERED: STAT IV STA (05:56)
[2022-05-22 05:58] LABS: BUN Creatinine Ratio 61.9 (10-20); Calcium 7.5 mg/dl (8.5-10.1); Creatinine Clr Calc Pharmacy 139.7 ml/min; Est GFR (African American) 122.1 ml/min; Est GFR (Non-African American) 105.3 ml/min; Magnesium 1.9 mg/dl (1.7-2.4); Phosphorus 1.9 mg/dl (2.5-4.9); Potassium 3.4 mmol/L (3.5-5.1)
[2022-05-22] MEDS ORDERED: POTASSIUM PHOS 3 MMOL/1 ML INFUSION IV STA (06:03)
[2022-05-22] MEDS ORDERED: CALCIUM GLUCONATE 10% 2,000 MG in DEXTROSE 5% 50 ML IV ONE (06:15)
[2022-05-22] MEDS: PHENYLEPHRINE/NSS 25 MG/250 ML BAG IV SCH ×2 (06:15→19:47)
[2022-05-22] MEDS: ICU ELECTROLYTE REPLACEMENT PROTOCOL SCH ×2 (06:16→17:48)
[2022-05-22] MEDS: MAGNESIUM SULFATE / D5W 1 GM/100 ML BAG IV SCH ×2 (06:16→08:04)
[2022-05-22] MEDS ORDERED: POTASSIUM PHOSPHATE 15 MMOL in SODIUM CHLORIDE 0.9% 250 ML IV ONE (06:30)
[2022-05-22] MEDS: PANTOprazole 40 MG in SYRINGE 0 ML IV SCH ×2 (08:03→21:27)
[2022-05-22] MEDS: MIDODRINE HCL 2.5 MG TAB PO SCH ×3 (08:04→16:34)
[2022-05-22] MEDS: MULTI VIT W/MINERALS LIQUID 15 ML UDP GT SCH (08:04)
[2022-05-22] MEDS: VANCOMYCIN HCL 1,500 MG in SODIUM CHLORIDE 0.9% 500 ML IV SCH (08:05)
--- NOTE | 2022-05-22 10:32 | Critical Care Progress Note ---
Date of Service May 22, 2022 Assessment & Plan (1) Severe sepsis with septic shock: (2) Acute respiratory failure with hypoxia: (3) Acute renal failure: (4) DM2 (diabetes mellitus, type 2): (5) Paroxysmal atrial fibrillation: (6) Altered mental status: (7) Embolic stroke: (8) Upper GI bleed: Plan Impression: 66-year-old female with morbid obesity, chronic indwelling [place], previous stroke with neurological sequelae admitted with severe sepsis with septic shock, acute renal failure, respiratory failure, acidosis with evidence of colitis Recommendations: 1. Neurologic: EEG with generalized slowing. MRI brain concerning for embolic stroke. Appreciate neurology input. Awaiting GEORGETTE from cardiology. 2. Cardiovascular. Continue 5 mg 3 times daily midodrine. Continue phenylephrine. Patient has periods of A-fib and SVT. We will consider the addition of amiodarone. Holding heparin at this time in anticipation of GEORGETTE. 3. Pulmonary: Minimal O2 return requirements. Reduce PEEP to 5. Continue lung protective ventilation strategy. Continue pressure support trials as the patient seems to be tolerating okay. Doubtful that she would tolerate extubation given profound weakness from delirium and stroke. 4. GI: Pancolitis. Positive for C. difficile. Continue precautions and antimicrobials. Concern earlier for GI bleed. Consult GI. Hemoglobin stable. Continue Protonix 40 twice daily. 5. Renal: Replace electrolytes as needed. Urine output has dropped off a bit today. Monitor urine output closely and consider additional dose of Lasix today. 6. ID: Continue oral vancomycin for C. difficile. Continue IV vancomycin for bacteremia. Suspect possible contaminant, but in light of the patient's shock, will continue with vancomycin. 7. Endocrine: Continue insulin. Appreciate pharmacy input. Attempt stress dose steroids today with 50 mg twice daily of hydrocortisone to wean pressors. 8. Heme-onc: Monitor hemoglobin closely. Patient discussed on multidisciplinary rounds. Prognosis is poor. Palliative care is consulted. Patient remains a DNR. CRITICAL CARE TIME - I have personally spent 47 minutes of critical care time in the direct management of this patient. This is a life/limb threatening event. This includes time spent evaluating patient, direct bedside care, chart review, placing orders, interpretation of diagnostic studies, discussion with consultants, patient, and family members, as well as other required patient management activities. This time is exclusive of all separately billable procedures, and teaching time and separate from and in addition to any other critical care service time. Admission and Anticipated Discharge Date Admission Date: May 18, 2022 Subjective No significant changes overnight. Yesterday patient was transition from Levophed to phenylephrine and is currently on low doses. She did have some bouts of SVT early this morning which spontaneously resolved. She is intermittently following commands and squeezing with her right hand. She does wiggle her toes. Heparin and tube feeds have been off in anticipation of a GEORGETTE. I did have a lengthy discussion with the patient's sister over the phone regarding CODE STATUS and goals of care. The sister was quite tearful and indicating that she is also dealing with her own health issues. She reiterated that she would like for the patient to remain a DNR in the event of a cardiac arrest. She was not able to comment further on any other goals of care such as transitioning to comfort measures or pursuing more aggressive measures such as tracheostomy. Review of Systems Review of Systems: Unobtainable due to endotracheal tube Physical Exam Constitutional: + morbidly obese and + mechanically ventilated Morbid obesity limits sensitivity of exam Neck: trachea midline, no thyromegaly Respiratory: normal respiratory effort, lungs clear to auscultation Cardiovascular: RRR, no murmur, no edema Gastrointestinal (Abdomen): normal bowel sounds, soft, nontender, no hepatosplenomegaly Musculoskeletal: Extremities: extremities normal to inspection Skin: Extremities are cool to the touch distally. Some abdominal mottling noted Neurologic: Flaccid on the left. Able to squeeze my fingers slightly on the right. Lymphatic: no cervical lymphadenopathy Results & Data Results & Data ([facility]) Vital Signs (Past 12 Hours) Vital Signs Temp Pulse Resp BP Pulse Ox O2 Del Method FiO2 05/22/22 10:00 137 H 13 95 35 05/22/22 08:00 Mechanical Vent 35 05/22/22 08:00 35 05/22/22 08:00 96 H 111/65 05/22/22 08:00 106 H 05/22/22 07:41 96 H 23 98 35 05/22/22 06:30 36.8 C 108 H 13 97 05/22/22 06:00 36.9 C 101 H 17 97 05/22/22 05:30 36.9 C 94 H 14 99 05/22/22 04:30 37.0 C 120 H 16 97 05/22/22 05:00 37.0 C 93 H 15 98 05/22/22 04:00 37.0 C 125 H 14 98 05/22/22 03:00 37.0 C 124 H 19 96 05/22/22 02:00 37.0 C 100 H 14 97 05/22/22 01:00 36.9 C 119 H 11 L 96 05/22/22 04:00 35 05/22/22 04:00 121/67 05/22/22 03:36 104 H 24 92 35 05/22/22 00:30 36.9 C 95 H 16 98 05/22/22 00:00 36.9 C 96 H 13 98 05/21/22 23:30 36.9 C 96 H 16 98 05/21/22 23:00 36.9 C 97 H 14 98 05/21/22 22:30 36.9 C 92 H 15 99 05/22/22 00:00 35 05/22/22 00:00 112/57 L 05/21/22 23:31 108 H 30 H 98 35 Coding Level of Care Code Critical Care 1st 30-74 mins Diagnoses Severe sepsis with septic shock A41.9; R65.21 Acute respiratory failure with hypoxia J96.01 Acute renal failure N17.9 DM2 (diabetes mellitus, type 2) E11.9 Paroxysmal atrial fibrillation I48.0 Altered mental status R41.82 Embolic stroke I63.9 Upper GI bleed K92.2 Time Spent (min) 47
--- NOTE | 2022-05-22 10:41 | Pharmacy Report ---
Pharmacy Glycemic Short Note 2 - Date of Service May 22, 2022 - Glycemic Short BSG Results (Last 24 hours): 05/21/22 05/21/22 05/21/22 12:08 16:17 19:21 Glucose POC Glucose (other) 176 H 170 H 149 H 05/21/22 05/22/22 05/22/22 23:27 04:42 08:13 Glucose 125 H POC Glucose (other) 101 H 143 H OUTPATIENT ANTIDIABETIC REGIMEN: * Lantus 15 units SQ HS * Sitagliptin 100mg PO daily HbA1C: 5.6% (03/20/22) ASSESSMENT: 05/22: * BSGs within goal range the last 24h. Received 10 units of basal and 9 units bolus insulin yesterday. * Remains intubated. Peptamen Intense VHP initiated at [facility] yesterday. Continues to require vasopressor support. Hydrocortisone 50mg IV q12h started today. * Continue Novolog q4 with coverage of tube feeds as advanced. Novolog parameters may need titrated with tube feed advancement and addition of steroids. Scaled HS Lantus. 05/20: * Pt is a 66 YO female admitted from a facility with severe sepsis and septic shock. She is currently critically ill, intubated, sedated, and requiring vasopressor support. History of DM2 - pharmacy consulted to assist with glycemic management. * Initiated on an insulin drip yesterday -- discontinued last evening due to hy pokalemia (K-2.5). Lantus 20 units SQ X 1 given and Novolog q4 (CF- 25mg/dL/unit) initiated. * BSGs elevated since discontinuation of infusion last night: [phone]/dL. * She remains intubated and on pressors. NPO. Continues on IV antibiotics and PO vanc. SCr down-trending. * Novolog parameters tightened this AM to CF 20mg/dL/unit q4. Given BSGs have down-trended throughout the day today ([phone]/dL), will continue with q4 Novolog and an HS Lantus scale tonight. If BSGs rebound into 300s and potassium WNL, would consider resuming insulin infusion for hyperglycemia in setting of critical illness. PLAN FOR INPATIENT GLYCEMIC CONTROL: * Hold outpatient oral diabetes medications * Basal insulin * Lantus HS scale pending BSG * Bolus insulin * NovoLog per scale ACHS or Q4hrs while NPO * Goal Range: Low 110 mg/dL - High 140 mg/dL * Correction Factor: 20 mg/dL/unit * Nutritional / Prandial insulin per carb ratio of 1 unit per 9 grams CHO consumed
[2022-05-22] MEDS: THIAMINE HCL 500 MG in SODIUM CHLORIDE 0.9% 50 ML IV SCH (11:10)
[2022-05-22] MEDS: HYDROCORTISONE SOD 50 MG in SYRINGE 0 ML IV SCH ×2 (11:10→21:27)
[2022-05-22] MEDS ORDERED: fentaNYL citrate 100 MCG/2 ML VIAL ONE (11:15)
--- NOTE | 2022-05-22 11:16 | Pre Anesthesia Assessment ---
Date of Service May 22, 2022 Pre Sedation Assessment Vital Signs Temp Pulse Resp BP Pulse Ox Pulse Ox O2 Del Method 05/22/22 10:00 137 H 13 95 05/22/22 08:00 Mechanical Vent 05/22/22 08:00 05/22/22 08:00 96 H 111/65 05/22/22 08:00 106 H 05/22/22 07:41 96 H 23 98 05/22/22 06:30 36.8 C 108 H 13 97 05/22/22 06:00 36.9 C 101 H 17 97 05/22/22 05:30 36.9 C 94 H 14 99 05/22/22 04:30 37.0 C 120 H 16 97 05/22/22 05:00 37.0 C 93 H 15 98 05/22/22 04:00 37.0 C 125 H 14 98 05/22/22 03:00 37.0 C 124 H 19 96 05/22/22 02:00 37.0 C 100 H 14 97 05/22/22 01:00 36.9 C 119 H 11 L 96 05/22/22 04:00 05/22/22 04:00 121/67 05/22/22 03:36 104 H 24 92 05/22/22 00:30 36.9 C 95 H 16 98 05/22/22 00:00 36.9 C 96 H 13 98 05/21/22 23:30 36.9 C 96 H 16 98 05/21/22 23:00 36.9 C 97 H 14 98 05/21/22 22:30 36.9 C 92 H 15 99 05/21/22 22:00 37.1 C 99 H 14 97 05/21/22 21:30 37.1 C 99 H 15 97 05/21/22 21:00 37.1 C 106 H 17 97 05/21/22 20:30 37.1 C 105 H 18 98 05/21/22 20:00 36.8 C 122 H 14 97 05/21/22 19:30 37.0 C 101 H 16 98 05/21/22 19:00 37.1 C 107 H 15 97 05/22/22 00:00 05/22/22 00:00 112/57 L 05/21/22 23:31 108 H 30 H 98 05/21/22 19:15 108 H 26 H 98 05/21/22 22:00 98 05/21/22 20:07 Mechanical Vent 05/21/22 20:00 105/60 05/21/22 18:00 37.1 C 110 H 12 96 05/21/22 17:00 37.0 C 112 H 14 94 05/21/22 16:00 36.9 C 119 H 16 92 05/21/22 15:00 36.8 C 130 H 25 H 91 05/21/22 16:00 05/21/22 16:00 128 H 88/50 L 05/21/22 16:00 128 H 05/21/22 15:20 128 H 31 H 91 05/21/22 12:00 05/21/22 12:00 101 H 05/21/22 14:00 36.5 C 101 H 21 91 05/21/22 13:00 36.4 C L 89 12 96 05/21/22 12:00 36.3 C L 92 H 16 95 FiO2 05/22/22 10:00 35 05/22/22 08:00 35 05/22/22 08:00 35 05/22/22 08:00 05/22/22 08:00 05/22/22 07:41 35 05/22/22 06:30 05/22/22 06:00 05/22/22 05:30 05/22/22 04:30 05/22/22 05:00 05/22/22 04:00 05/22/22 03:00 05/22/22 02:00 05/22/22 01:00 05/22/22 04:00 35 05/22/22 04:00 05/22/22 03:36 35 05/22/22 00:30 05/22/22 00:00 05/21/22 23:30 05/21/22 23:00 05/21/22 22:30 05/21/22 22:00 05/21/22 21:30 05/21/22 21:00 05/21/22 20:30 05/21/22 20:00 05/21/22 19:30 05/21/22 19:00 05/22/22 00:00 35 05/22/22 00:00 05/21/22 23:31 35 05/21/22 19:15 35 05/21/22 22:00 05/21/22 20:07 05/21/22 20:00 05/21/22 18:00 05/21/22 17:00 05/21/22 16:00 05/21/22 15:00 05/21/22 16:00 35 05/21/22 16:00 05/21/22 16:00 05/21/22 15:20 35 05/21/22 12:00 35 05/21/22 12:00 05/21/22 14:00 05/21/22 13:00 05/21/22 12:00 Pre-Sedation Airway Assessment Smoking Status: Unknown if ever smoked Notes The planned sedation has been discussed with the patient. Informed Consent was obtained. I have identified the patient, determined the appropriateness of sedation and have assessed the patient immediately prior to the procedure. All medicine(s) and interventions are by my order.
--- NOTE | 2022-05-22 11:18 | Gastrointestinal Consultation ---
Date of Consultation May 22, 2022 Assessment & Plan (1) Embolic stroke: (2) Severe sepsis with septic shock: (3) Colitis: (4) GI bleed: Pt is a 66 yo female currently admitted with embolic stroke, was on Heparin gtt, sepsis (blood cx w coag negative staph), respiratory failure on mechanical vent, CT w signs of pancolitis (Cdiff & Novovirus positive), seen for suspected GI bleeding. Dark red stools yesterday but per RN this AM stools are dark brown. Hgb between 11-13 in the last few days. - Monitor blood ct and transfuse prn - PPI IV BID - Vancomycin PO for Cdiff - Defer endoscopic management - Palliative care following, needs to f/u w POA (sister) on goals of care - Continue supportive care otherwise ; pls recall PRN Supervising Physician Co-Signing Physician Notes Attending attestation I have seen, examined this patient, and agree with the findings and above by our mid-level provider KENZIE Tanner, with the following additions: - patient with respiratory failure, sepsis, svt, acute on chronic stroke with maroon stools yesterday. Hb has fluctuated without tx, Hb same at adm as today - Brown stool today, last concern for bm with blood was yesterday while on heparin gtt, now with normal BM. Given known colitis, this likely represents bleeding that is not acute or ongoing from a colonic source from C-diff. Bun has actually improved and vasoactive needs have decreased - Patient is undergoing GEORGETTE immediately after our interview - Family is discussing goals of care which seem very appropriate - Consider holding heparin if possilble - IV BID PPI - Vanco for C-diff - No plans for endoscopy - Call with questions History of Present Illness Reason for Consultation: UGI bleed Requesting Physician: Dr. Irineo Guzman Attending Physician: Dr. Curt Timmons History of Present Illness Pt is a 66 yo female w PMHx of CVA, Afib on Eliquis, neurogenic bladder on chronic urinary catheter use, DM II, HTN, HLD who was admitted from [facility] with AMS, hypotension, and respiratory failure. GI consulted for possible UGI bleed as she was having dark red stools yesterday. She is currently on mechanical ventilator and on pressors. Unable to obtain history from pt, chart reviewed. Pt was found to have sepsis, blood cx grew Coag negative staph, embolic stroke currently on Heparin gtt (held this AM for GEORGETTE), Norovirus and Cdiff positive stools. CTA abd/pelvis wo bowel obstruction, + circumferential wall thickening w mucosal hyperemia throughout colon w perirectal stranding. Per RN, pt having dark brown stools but no signs of rectal bleeding. Noted H/H between 11-13 in the last few days. No records of prior endoscopies/colonoscopies. Allergies Allergy/AdvReac Type Severity Reaction Status Date / Time adhesive tape Allergy Unknown Unknown Verified 05/18/22 18:23 aspirin Allergy Unknown Unknown Verified 05/18/22 18:23 atorvastatin Allergy Unknown Unknown Verified 05/18/22 18:23 citalopram [From Celexa] Allergy Unknown Unknown Verified 05/18/22 18:23 Iodinated Contrast Media Allergy Unknown Unknown Verified 05/18/22 18:23 iodine Allergy Unknown Unknown Verified 05/18/22 18:23 latex Allergy Unknown Unknown Verified 05/18/22 18:23 sertraline [From Zoloft] Allergy Unknown Unknown Verified 05/18/22 18:23 Sulfa (Sulfonamide Allergy Unknown Unknown Verified 05/18/22 18:23 Antibiotics) ekg leads Allergy Unknown Unknown Uncoded 05/18/22 18:23 Home Medications Medication Instructions Recorded Confirmed Type acetaminophen 325 mg tablet 650 mg PO Q6 PRN Pain 03/20/22 05/18/22 History acetaminophen 325 mg tablet 650 mg PO Q6 PRN temp>101 03/20/22 05/18/22 History apixaban 5 mg tablet (Eliquis) 5 mg PO BID 03/20/22 05/18/22 History cholecalciferol (vitamin D3) 125 125 mcg PO DAILY 03/20/22 05/18/22 History mcg (5,000 unit) tablet (Vitamin D3) diltiazem HCl 180 mg 180 mg PO DAILY 03/20/22 05/18/22 History capsule,extended release 24 hr furosemide 40 mg tablet 40 mg PO DAILY 03/20/22 05/18/22 History gabapentin 100 mg capsule 200 mg PO DAILY 03/20/22 05/18/22 History lisinopril 10 mg tablet 10 mg PO DAILY 03/20/22 05/18/22 History pravastatin 40 mg tablet 40 mg PO DAILY 03/20/22 05/18/22 History sitagliptin phosphate 100 mg 100 mg PO DAILY 03/20/22 05/18/22 History tablet (Januvia) sotalol 80 mg tablet 80 mg PO BID 03/20/22 05/18/22 History trazodone 150 mg tablet 75 mg PO HS 03/20/22 05/18/22 History insulin glargine 100 unit/mL (3 15 unit (0.15 mL) subcut HS #15 mL 03/24/22 05/18/22 Rx mL) subcutaneous pen (Lantus Solostar U-100 Insulin) Boost Glucose Control 8 oz PO . AT BREAKFAST 05/18/22 05/18/22 History cyanocobalamin (vitamin B-12) 500 500 mcg PO Q OTHER DAY 05/18/22 05/18/22 History mcg tablet (Vitamin B-12) duloxetine 60 mg capsule,delayed 60 mg PO DAILY 05/18/22 05/18/22 History release (Cymbalta) tramadol 50 mg tablet 50 mg PO Q8H PRN pain level 6-10 05/18/22 05/18/22 History Patient History Medical History Acute UTI Altered mental status Depression with anxiety DM2 (diabetes mellitus, type 2) Embolic stroke H/O: CVA (cerebrovascular accident) HLD (hyperlipidemia) HTN (hypertension) Neurogenic bladder Paroxysmal atrial fibrillation Upper GI bleed Surgical History H/O: hysterectomy Family History Other Heart disease Social History Smoking Status: Unknown if ever smoked Second Hand Exposure: No; Do You Dip or Chew Tobacco: No; Tobacco Cessation Education Requested by Patient: No Hx Alcohol Use: No Hx Substance Use: No Preferred Language: Georgian Communication Ability: Unable Fire Alarm Technician Required: No Beliefs That Will Affect Care: None Current Living Situation: Senior Living Other Information That Helps Us Care for You: No Feels Safe at Home: Yes Safety Concerns: Feels Safe At This Time Assistive Devices: Wheelchair Review of Systems Review of Systems: Unobtainable due to endotracheal tube and Unobtainable due to reduced consciousness Physical Exam Constitutional: comfortable and + mechanically ventilated Eyes: PERRL, conjunctivae normal, anicteric sclerae ENMT: OG Respiratory: Diminished bilateral bases Mechanically vented Cardiovascular: HRR, no murmur or gallops Gastrointestinal (Abdomen): Soft, no sign of discomfort on palpation, BS hypoactive Skin: no rashes, warm and dry no jaundice Psychiatric: On mechanical vent Lymphatic: + lymphedema Results & Data ([facility]) Vital Signs (Past 12 Hours) Vital Signs Temp Pulse Resp BP Pulse Ox O2 Del Method FiO2 05/22/22 10:00 137 H 13 95 35 05/22/22 08:00 Mechanical Vent 35 05/22/22 08:00 35 05/22/22 08:00 96 H 111/65 05/22/22 08:00 106 H 05/22/22 07:41 96 H 23 98 35 05/22/22 06:30 36.8 C 108 H 13 97 05/22/22 06:00 36.9 C 101 H 17 97 05/22/22 05:30 36.9 C 94 H 14 99 05/22/22 04:30 37.0 C 120 H 16 97 05/22/22 05:00 37.0 C 93 H 15 98 05/22/22 04:00 37.0 C 125 H 14 98 05/22/22 03:00 37.0 C 124 H 19 96 05/22/22 02:00 37.0 C 100 H 14 97 05/22/22 01:00 36.9 C 119 H 11 L 96 05/22/22 04:00 35 05/22/22 04:00 121/67 05/22/22 03:36 104 H 24 92 35 05/22/22 00:30 36.9 C 95 H 16 98 05/22/22 00:00 36.9 C 96 H 13 98 05/21/22 23:30 36.9 C 96 H 16 98 05/22/22 00:00 35 05/22/22 00:00 112/57 L 05/21/22 23:31 108 H 30 H 98 35
[2022-05-22] MEDS ORDERED: AMIODARONE IV BOLUS & DRIP IV STA (11:56)
[2022-05-22] MEDS ORDERED: 0.2 MICRON FILTER SET 1 EACH IV STA (11:56)
[2022-05-22] MEDS ORDERED: STAT IV Infusion **Titration per Protocol STA (11:56)
[2022-05-22] MEDS ORDERED: AMIODARONE / D5W 150 MG/100 ML BAG IV ONE (12:15)
[2022-05-22] MEDS ORDERED: AMIODARONE / D5W 360 MG/200 ML BAG IV ONE (12:30)
--- NOTE | 2022-05-22 12:47 | Electrocardiogram Report ---
Test Reason : Blood Pressure : / mmHG Vent. Rate : 139 BPM Atrial Rate : 068 BPM P-R Int : 000 ms QRS Dur : 076 ms QT Int : 310 ms P-R-T Axes : 000 -32 137 degrees QTc Int : 471 ms Supraventricular tachycardia (likely sinus with 1st degree AV block although atrial flutter cannot b e excluded Left axis deviation Low voltage QRS Abnormal ECG When compared with ECG of 21-MAY-2022 04:46, Vent. rate has increased BY 54 BPM Confirmed by Ramses Pacheco ([id number]) on 05/22/2022 12:46:50 PM Referred By: REFERRED SELF Confirmed By:Dimitris Pacheco
--- NOTE | 2022-05-22 13:33 | Pharmacy Report ---
Pharmacy PK ABX Note - Date of Service May 22, 2022 - Assessment and Plan Assessment 66 year old F receiving Vancomycin for treatment of bacteremia. Blood cultures (05/18) (+) CoNS spp in 3/4. One isolate is methicillin resistant and the other is methicillin sensitive. Repeat blood cultures (-) at 48h. Also C.diff positive (receiving PO vancomycin and IV flagyl). Renal function improving (SCr 4.06 -->2.68 -->1.53 -->1.25-->0.46 -->0.42). Decreased urine output today. Continues on pressor support. Day # 5 vancomycin Plan Vancomycin * Random vancomycin level this afternoon, 48.6mcg/mL is a peak. * Will obtain another level ~1930 to assess clearance. May need to return to dosing by levels. Pharmacy will continue to follow and will adjust dose/frequency as necessary. Thank you. Pharmacy has transitioned to AUC monitoring for vancomycin. AUC/SOL is the preferred PK/PD target and is associated with decreased risk of nephrotoxicity compared to traditional trough targets.
--- NOTE | 2022-05-22 14:39 | Hospitalist Progress Note ---
Date of Service May 22, 2022 Assessment & Plan (1) Septic shock: (2) GI bleed: (3) Respiratory failure with hypoxia: (4) MARIA ELENA (acute kidney injury): (5) Hyponatremia: (6) DM2 (diabetes mellitus, type 2): (7) HLD (hyperlipidemia): (8) HTN (hypertension): (9) H/O: CVA (cerebrovascular accident): (10) Neurogenic bladder: (11) Paroxysmal atrial fibrillation: (12) Depression with anxiety: Plan 66-year-old lady, resident at [facility] with PMH of CVA with residual right- sided weakness, chronic indwelling Milan catheter for neurogenic bladder, morbid obesity, HTN, GI bleeds, DM2, chronic hyponatremia, PAF on Eliquis was brought to the ED 05/18 from [facility] for concerns of encephalopathy and reported bloody bowel movements. She was noted to be obtunded, mildly hypothermic and with dried blood in oral cavity at ED and hence was intubated. She reportedly had another bowel movement in the ED that was dark maroon without clots. She is being managed for the following: C. difficile colitis Norovirus Ac Gastroenteritis Gram-positive bacteremia: 05/19 echo neg for vegetation, repeat bl cx 05/20 pending Septic shock likely secondary to above Likely metabolic encephalopathy Patient presents with altered mentation and was intubated due to AMS/dried blood in oral cavity Due to persistent hypotension, started on pressors at admission. Milan catheter was changed in the ED. Admitting labs with WBC of 32.5 K, hemoglobin of 11.8, AG metabolic acidosis in ABG. Pro-Maxim and LA elevated. Respiratory BioFire panel was negative. Admitting CXR with mild pulmonary vascular congestion. Admitting CTAP and CT chest: Nonspecific proctocolitis extending from the mid transverse colon distally. Small to moderate right pleural effusion with mild right basilar atelectasis. Admitting CT head with no new acute findings. 05/21 MRI Brain: Multiple small acute infarcts (b/l occipital lobes/left basal ganglia/other areas), likely embolic etiology. No hge or mass effect. 05/21 EEG: No epileptiform discharges or electrographic seizures were seen. 05/18 blood culture: GPC bacteremia, follow final results. 05/20 Bl Cx: pending Currently on pressors, metronidazole, vancomycin p.o. and IV. Also on midodrine and Solu-Cortef. Being managed in ICU by ICU team. Neuro evaled. EEG pending. GI bleed: Had dark-colored stool in the ED, admitting hemoglobin of 11.8, on Protonix drip, hemoglobin 11.7 today, being managed in ICU. MARIA ELENA: Admitting creatinine of 4.06, secondary to septic shock, resolved. Type II NSTEMI: Troponin elevated likely secondary to acute illness, EKG and echo done/reviewed. A-fib on Eliquis: On heparin drip Electrolyte abnormalities: Including hyponatremia, MARIA ELENA, metabolic acidosis. improving. DMII: History of, insulin per ICU protocol. CVA, Neurogenic bladder and anxiety: -holding oral medications -urinary catheter changed in the ER DVT PPx: Hep drip Code Status: DNR/DNI Admission and Anticipated Discharge Date Admission Date: May 18, 2022 Subjective Patient is seen and examined at bedside as a follow-up of septic shock, GI bleed, C. difficile, MARIA ELENA, electrolyte abnormalities. Patient was lying in bed, intubated and mechanically ventilated, on Chandler- Synephrine, off sedation [tries to open eyes on calling name], blackish stool per RNHb has dropped to 11.7 today. Heparin drip and tube feeding on hold for GEORGETTE today. ROS not able due to intubated/sedated status. Physical Exam Physical Exam: Intubated, drowsy, mechanically ventilated. Obesity class II. Undergoing CPAP trial at bedside exam. Hemodynamically stable. On Chandler-Synephrine. Urinary catheter with dark yellow urine noted Heart: RRR, no murmur Lower extremity: No erythema, 2+ pitting edema Respiratory: Intubated/ventilated, clear to auscultation Neurologic: Drowsy on ventilator. Results & Data Results & Data ([facility]) Vital Signs (Past 12 Hours) Vital Signs Temp Pulse Resp BP Pulse Ox O2 Del Method FiO2 05/22/22 10:00 137 H 13 95 35 05/22/22 08:00 Mechanical Vent 35 05/22/22 08:00 35 05/22/22 08:00 96 H 111/65 05/22/22 08:00 106 H 05/22/22 07:41 96 H 23 98 35 05/22/22 06:30 36.8 C 108 H 13 97 05/22/22 06:00 36.9 C 101 H 17 97 05/22/22 05:30 36.9 C 94 H 14 99 05/22/22 04:30 37.0 C 120 H 16 97 05/22/22 05:00 37.0 C 93 H 15 98 05/22/22 04:00 37.0 C 125 H 14 98 05/22/22 03:00 37.0 C 124 H 19 96 05/22/22 04:00 35 05/22/22 04:00 121/67 05/22/22 03:36 104 H 24 92 35
[2022-05-22 16:14] LABS: Hematocrit (blood only) 32.3 % (37.0-47.0); Hemoglobin 11.3 g/dl (12.0-16.0); Mean Corpuscular Hemoglobin 27.1 pg (25.0-34.0); Mean Corpuscular Volume 77.5 fL (80.0-100.0); Mean Platelet Volume 9.4 fL (9.4-12.4); Nucleated RBC # (auto) 0.02 K/uL (0-0.12); Nucleated RBC % (auto) 0.1 %; Platelet Count 238 K/uL (130-400); RDW Coefficient of Variation 14.1 % (11.5-14.5); RDW Standard Deviation 38.9 fL (36.4-46.3); Red Blood Count 4.17 M/uL (4.20-5.40); White Blood Count 19.29 K/ul (4.8-10.8)
--- NOTE | 2022-05-22 16:22 | Cardiology Progress Note ---
Date of Service May 22, 2022 Assessment & Plan (1) Ischemic stroke: (2) Palliative care encounter: (3) Severe sepsis with septic shock: (4) Altered mental status: (5) Acute respiratory failure with hypoxia: (6) Acute renal failure: (7) High anion gap metabolic acidosis: (8) Septic shock: (9) H/O: CVA (cerebrovascular accident): (10) HTN (hypertension): (11) Paroxysmal atrial fibrillation: Plan Three separate lesions present that likely represent endocarditis: mitral valve, aortic valve and left atrial appendage given clinical context would recommend continuing to treat for likely endocarditis Pt with recurrent SVT, agree with IV amio should they reoccur Admission and Anticipated Discharge Date Admission Date: May 18, 2022 Subjective Pt seen and examined. Chart reviewed. Telemetry reviewed. Case discussed with nursing and critical care team. Review of Systems Review of Systems: Unobtainable due to endotracheal tube Physical Exam Physical Exam: General: Intubated, off sedation with no response to physical, verbal or painful stimuli HEENT: Normocephalic, atraumatic. Pupils equal, round and reactive to light and accommodation. Extraocular muscles are intact. Anicteric sclera. Moist mucous membranes. Neck: No JVD. No bruit. Cardiovascular: Regular. Positive S-4. Normal S-1 and S-2. No S-3. No murmurs or rubs. Pulmonary: Clear to auscultation B/L. No rales, rhonchi or wheezing Abdomen: Bowel sounds x 4, soft. No rebound, guarding or tenderness. No organomegaly. Extremities: No clubbing, cyanosis or edema. +2 pedal pulses bilaterally. Skin: Warm and dry. Results & Data ([facility]) Vital Signs (Past 12 Hours) Vital Signs Temp Pulse Resp BP Pulse Ox O2 Del Method FiO2 05/22/22 14:45 85 15 95 35 05/22/22 15:00 36.4 C L 86 25 H 97 05/22/22 14:00 36.5 C 86 13 99 05/22/22 13:00 36.6 C 86 11 L 97 05/22/22 12:00 36.7 C 104 H 11 L 97 05/22/22 11:00 36.7 C 98 H 13 98 05/22/22 10:00 36.9 C 137 H 14 96 05/22/22 09:00 36.9 C 106 H 14 97 05/22/22 08:00 36.9 C 104 H 16 98 05/22/22 07:00 36.8 C 99 H 15 98 Mechanical Vent 35 05/22/22 12:00 35 05/22/22 12:00 137 H 05/22/22 10:00 137 H 13 95 35 05/22/22 08:00 Mechanical Vent 35 05/22/22 08:00 35 05/22/22 08:00 96 H 111/65 05/22/22 08:00 106 H 05/22/22 07:41 96 H 23 98 35 05/22/22 06:30 36.8 C 108 H 13 97 05/22/22 06:00 36.9 C 101 H 17 97 05/22/22 05:30 36.9 C 94 H 14 99 05/22/22 04:30 37.0 C 120 H 16 97 05/22/22 05:00 37.0 C 93 H 15 98
[2022-05-22 17:03] LABS: Basophils # (auto) 0.11 K/uL (0-0.2); Basophils % (auto) 0.6 %; Echinocytes 2+; Eosinophils # (auto) 0.14 K/uL (0-0.50); Eosinophils % (auto) 0.7 %; Immature Granulocytes # (auto) 1.29 K/uL (0.01-0.20); Immature Granulocytes % (auto) 6.7 %; Lymphocytes # (auto) 1.97 K/uL (1.2-3.4); Lymphocytes % (auto) 10.2 %; Monocytes # (auto) 1.37 K/uL (0.11-0.59); Monocytes % (auto) 7.1 %; Neutrophils # (auto) 14.41 K/uL (1.40-6.50); Neutrophils % (auto) 74.7 %
[2022-05-22] MEDS: AMIODARONE / D5W 360 MG/200 ML BAG IV SCH (17:46)
[2022-05-22] MEDS ORDERED: Nursing to Pharmacy Communication SCH (18:00)
[2022-05-22] MEDS: PEPTAMEN INTENSE VHP 1.0 CAL 1,000 ML BAG OG SCH (18:08)
[2022-05-22] MEDS: LANTUS PER UNIT CHARGE SQ SCH (21:25)
[2022-05-23] MEDS: INSULIN ASPART PER UNIT SC SCH ×7 (00:18→21:39)
[2022-05-23] MEDS: VANCOMYCIN HCL 500 MG/10 ML SOLN NG SCH ×4 (00:29→18:44)
[2022-05-23 01:20] LABS: Partial Thromboplastin Ratio 1.5; Partial Thromboplastin Time 40.1 Seconds (21.0-31.0)
[2022-05-23] MEDS: HEPARIN SODIUM/DEXTROSE 25,000 UNITS/500 ML BAG IV SCH ×3 (03:06→19:28)
[2022-05-23] MEDS: TUBE FEEDING WATER FLUSH OG SCH ×5 (03:07→15:00)
[2022-05-23] MEDS: metroNIDAZOLE 500 MG/100 ML BAG IV SCH ×3 (03:13→21:39)
[2022-05-23 05:53] LABS: Hemoglobin 11.6 g/dl (12.0-16.0); Mean Corpuscular Hemoglobin 27.2 pg (25.0-34.0); Mean Corpuscular Hgb Conc 35.2 g/dL (32.0-36.0); Mean Corpuscular Volume 77.3 fL (80.0-100.0); Mean Platelet Volume 9.4 fL (9.4-12.4); Platelet Count 246 K/uL (130-400); RDW Coefficient of Variation 14.2 % (11.5-14.5); RDW Standard Deviation 38.9 fL (36.4-46.3); Red Blood Count 4.27 M/uL (4.20-5.40); White Blood Count 21.75 K/ul (4.8-10.8)
[2022-05-23] MEDS: AMIODARONE / D5W 360 MG/200 ML BAG IV SCH (06:03)
[2022-05-23] MEDS: PHENYLEPHRINE/NSS 25 MG/250 ML BAG IV SCH ×2 (06:03→14:46)
[2022-05-23 06:04] LABS: BUN Creatinine Ratio 41.9 (10-20); Calcium 7.5 mg/dl (8.5-10.1); Creatinine Clr Calc Pharmacy 142.9 ml/min; Est GFR (African American) 121.1 ml/min; Est GFR (Non-African American) 104.5 ml/min; Magnesium 1.9 mg/dl (1.7-2.4); Phosphorus 2.6 mg/dl (2.5-4.9); Potassium 3.5 mmol/L (3.5-5.1)
[2022-05-23] MEDS: ICU ELECTROLYTE REPLACEMENT PROTOCOL SCH ×2 (06:33→17:04)
[2022-05-23] MEDS: MAGNESIUM SULFATE / D5W 1 GM/100 ML BAG IV SCH ×2 (06:50→08:27)
[2022-05-23] MEDS: POTASSIUM CHLORIDE / WTR 20 MEQ/100 ML PLCT IV SCH ×2 (06:50→08:28)
[2022-05-23] MEDS: MULTI VIT W/MINERALS LIQUID 15 ML UDP GT SCH (07:59)
[2022-05-23] MEDS: MIDODRINE HCL 2.5 MG TAB PO SCH ×3 (08:00→17:02)
[2022-05-23] MEDS: PANTOprazole 40 MG in SYRINGE 0 ML IV SCH ×2 (08:07→21:40)
[2022-05-23] MEDS: THIAMINE HCL 500 MG in SODIUM CHLORIDE 0.9% 50 ML IV SCH (08:09)
--- NOTE | 2022-05-23 08:19 | Critical Care Progress Note ---
Date of Service May 23, 2022 Assessment & Plan (1) Severe sepsis with septic shock: (2) Acute respiratory failure with hypoxia: (3) Acute renal failure: (4) DM2 (diabetes mellitus, type 2): (5) Paroxysmal atrial fibrillation: (6) Altered mental status: (7) Embolic stroke: (8) Upper GI bleed: Plan Impression: 66-year-old female with morbid obesity, chronic indwelling Milan, previous stroke with neurological sequelae admitted with severe sepsis with septic shock, acute renal failure, respiratory failure, acidosis with evidence of colitis Recommendations: 1. Neurologic: EEG with generalized slowing. MRI brain concerning for embolic stroke. Appreciate neurology input. Will need PT and OT. Speech therapy consult as well. Appreciate neurology input. 2. Cardiovascular. Continue 5 mg 3 times daily midodrine. Wean phenylephrine off. Continue IV amiodarone. Will defer switching to p.o. amiodarone to cardiology service. She had runs of SVT and A-fib earlier this hospital stay. GEORGETTE with findings concerning for possible endocarditis. Continue IV heparin. Appreciate cardiology input. 3. Pulmonary: Patient successfully extubated 05/23 to low-flow nasal cannula. Will use BiPAP as needed. 4. GI: Pancolitis. Positive for C. difficile. Continue precautions and antimicrobials. Continue Protonix 40 twice daily. There was concern for upper GI bleed. Appreciate GI input. No role for endoscopy at this time. 5. Renal: Replace electrolytes as needed. Monitor urine output closely. 6. ID: Continue oral vancomycin for C. difficile. Continue IV vancomycin for bacteremia. GEORGETTE findings concerning for possible endocarditis. Continue IV vancomycin. Trough levels are very high. Pharmacy assisting with dosing. 7. Endocrine: Continue insulin. Appreciate pharmacy input. Decrease hydrocortisone to 50 mg a day. 8. Heme-onc: Hemoglobin remains largely stable. Continue heparin drip. Patient discussed on multidisciplinary rounds. Prognosis is poor. Palliative care is consulted. Patient remains a DNR. Patient indicated clearly to me that she would not want to be reintubated in the event of respiratory arrest. CRITICAL CARE TIME - I have personally spent 44 minutes of critical care time in the direct management of this patient. This is a life/limb threatening event. This includes time spent evaluating patient, direct bedside care, chart review, placing orders, interpretation of diagnostic studies, discussion with consultants, patient, and family members, as well as other required patient management activities. This time is exclusive of all separately billable procedures, and teaching time and separate from and in addition to any other critical care service time. Admission and Anticipated Discharge Date Admission Date: May 18, 2022 Subjective Patient following commands this morning. Off sedation. Able to squeeze with her right hand and wiggle her left toes. Able to answer questions appropriately with simple yes or no nods. She denies any shortness of breath or chest pain. We extubated the patient this morning and she is able to cough and weakly say her first name. She is doing well on low-flow oxygen. Review of Systems Review of Systems: All systems reviewed & are unremarkable except as noted in HPI & below Physical Exam Constitutional: + morbidly obese; no acute distress Morbid obesity limits sensitivity of exam Neck: trachea midline, no thyromegaly Respiratory: normal respiratory effort, lungs clear to auscultation Cardiovascular: RRR, no murmur, no edema Gastrointestinal (Abdomen): normal bowel sounds, soft, nontender, no hepatosplenomegaly Musculoskeletal: Extremities: extremities normal to inspection Skin: Extremities are cool to the touch distally. Some abdominal mottling noted Neurologic: Flaccid on the left. Able to squeeze my fingers slightly on the right. Lymphatic: no cervical lymphadenopathy Results & Data Results & Data ([facility]) Vital Signs (Past 12 Hours) Vital Signs Temp Pulse Resp BP Pulse Ox O2 Del Method FiO2 05/23/22 07:45 86 21 100 30 05/23/22 03:30 82 20 100 35 05/23/22 05:00 36.7 C 77 13 100 05/23/22 05:00 116/79 05/23/22 04:00 36.7 C 80 11 L 100 05/23/22 04:00 114/73 05/23/22 03:00 36.6 C 79 18 100 05/23/22 03:00 119/75 05/23/22 04:00 35 05/23/22 02:09 36.6 C 78 17 100 05/23/22 01:01 36.6 C 79 17 99 05/23/22 01:00 111/75 05/23/22 00:58 36.6 C 77 11 L 99 05/23/22 00:00 36.0 C L 93 H 22 86 L 05/23/22 00:00 35 05/22/22 23:00 36.6 C 80 14 100 05/22/22 23:00 107/68 05/22/22 22:57 Mechanical Vent 05/22/22 22:57 80 17 98 35 05/22/22 22:00 36.7 C 112 H 7 L 99 05/22/22 22:00 121/72 05/22/22 21:50 111/68 05/22/22 21:50 36.7 C 86 11 L 99 05/22/22 21:00 36.6 C 83 13 99 Coding Level of Care Code Critical Care 1st 30-74 mins Diagnoses Severe sepsis with septic shock A41.9; R65.21 Acute respiratory failure with hypoxia J96.01 Acute renal failure N17.9 DM2 (diabetes mellitus, type 2) E11.9 Paroxysmal atrial fibrillation I48.0 Altered mental status R41.82 Embolic stroke I63.9 Upper GI bleed K92.2 Time Spent (min) 44
[2022-05-23 08:48] LABS: Partial Thromboplastin Ratio 1.9
[2022-05-23] MEDS ORDERED: VANCOMYCIN HCL 1,500 MG in SODIUM CHLORIDE 0.9% 500 ML IV ONE (09:00)
[2022-05-23 09:05] LABS: Partial Thromboplastin Time 52.7 Seconds (21.0-31.0)
--- NOTE | 2022-05-23 09:08 | Neurology Progress Note ---
Date of Service May 23, 2022 Assessment & Plan (1) Ischemic stroke: Plan pt not extubated and following simple command. pt with ongoing tx for sepsis and endocarditis. EEG stable, expected finding of slowing without status. not much to add from neurology stand point at this point. continue current managements. Admission and Anticipated Discharge Date Admission Date: May 18, 2022 Results & Data ([facility]) Vital Signs (Past 12 Hours) Vital Signs Temp Pulse Resp BP Pulse Ox O2 Del Method FiO2 05/23/22 07:45 86 21 100 30 05/23/22 03:30 82 20 100 35 05/23/22 05:00 36.7 C 77 13 100 05/23/22 05:00 116/79 05/23/22 04:00 36.7 C 80 11 L 100 05/23/22 04:00 114/73 05/23/22 03:00 36.6 C 79 18 100 05/23/22 03:00 119/75 05/23/22 04:00 35 05/23/22 02:09 36.6 C 78 17 100 05/23/22 01:01 36.6 C 79 17 99 05/23/22 01:00 111/75 05/23/22 00:58 36.6 C 77 11 L 99 05/23/22 00:00 36.0 C L 93 H 22 86 L 05/23/22 00:00 35 05/22/22 23:00 36.6 C 80 14 100 05/22/22 23:00 107/68 05/22/22 22:57 Mechanical Vent 05/22/22 22:57 80 17 98 35 05/22/22 22:00 36.7 C 112 H 7 L 99 05/22/22 22:00 121/72 05/22/22 21:50 111/68 05/22/22 21:50 36.7 C 86 11 L 99
--- NOTE | 2022-05-23 10:01 | Pharmacy Report ---
Pharmacy Glycemic Short Note 2 - Date of Service May 23, 2022 - Glycemic Short BSG Results (Last 24 hours): 05/22/22 05/22/22 05/22/22 11:44 16:02 20:42 Glucose POC Glucose POC Glucose (other) 137 H 144 H 132 H 05/23/22 05/23/22 05/23/22 00:14 05:34 07:40 Glucose 184 H POC Glucose 180 H POC Glucose (other) 144 H OUTPATIENT ANTIDIABETIC REGIMEN: * Lantus 15 units SQ HS * Sitagliptin 100mg PO daily HbA1C: 5.6% (03/20/22) ASSESSMENT: 05/23: * Goal range 140-180 mg/dL for ICU status patient. BSG's in lower end of goal range yesterday, now trending up to upper end of goal range due to initiation of steroids yesterday * Patient now extubated as of this AM, and tubefeeds on hold (previously only running at 10 mL/hr ~ 3 g CHO q4h - not anticipated to have a significant impact on BSG's). Speech assessment pending. Steroids tapering by half. * Anticipated that increased stressors leading to rise in BSG's will now dissipate and BSG's will fall again without intervention. Will not change basal nor bolus regimen at this time. 05/22: * BSGs within goal range the last 24h. Received 10 units of basal and 9 units bolus insulin yesterday. * Remains intubated. Peptamen Intense VHP initiated at [facility] yesterday. Continues to require vasopressor support. Hydrocortisone 50mg IV q12h started today. * Continue Novolog q4 with coverage of tube feeds as advanced. Novolog p arameters may need titrated with tube feed advancement and addition of steroids. Scaled HS Lantus. 05/20: * Pt is a 66 YO female admitted from a facility with severe sepsis and septic shock. She is currently critically ill, intubated, sedated, and requiring vasopressor support. History of DM2 - pharmacy consulted to assist with glycemic management. * Initiated on an insulin drip yesterday -- discontinued last evening due to hypokalemia (K-2.5). Lantus 20 units SQ X 1 given and Novolog q4 (CF- 25mg/dL/unit) initiated. * BSGs elevated since discontinuation of infusion last night: 269-133-148gz/dL. * She remains intubated and on pressors. NPO. Continues on IV antibiotics and PO vanc. SCr down-trending. * Novolog parameters tightened this AM to CF 20mg/dL/unit q4. Given BSGs have down-trended throughout the day today (210-190-491au/dL), will continue with q4 Novolog and an HS Lantus scale tonight. If BSGs rebound into 300s and potassium WNL, would consider resuming insulin infusion for hyperglycemia in setting of critical illness. PLAN FOR INPATIENT GLYCEMIC CONTROL: * Hold outpatient oral diabetes medications * Basal insulin * Lantus HS scale pending BSG * Bolus insulin * NovoLog per scale ACHS or Q4hrs while NPO * Goal Range: Low 110 mg/dL - High 140 mg/dL * Correction Factor: 20 mg/dL/unit * Nutritional / Prandial insulin per carb ratio of 1 unit per 9 grams CHO consumed
--- NOTE | 2022-05-23 10:07 | Pharmacy Report ---
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 BCID2 notes Staph epidermidis with methicillin resistance gene detected. Culture result indicates one isolate is methicillin resistant and the other is methicillin sensitive. * Repeat blood cultures (05/20): remain (-) * C.diff gene and toxin positive * Stool GI panel with Norovirus * Serum creatinine improving (SCr 4.06 -->2.68 -->1.53 -->1.25-->0.46 -->0.42 --> 0.43). However, decreased urine output yesterday and overnight last night despite SCr remaining low. This is also associated with impaired clearance of vancomycin based on three levels obtained over the course of the last 24 hours. Impaired renal function (despite normalized SCr) likely. 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 Thank you. Pharmacy has transitioned to AUC monitoring for vancomycin. AUC/SOL is the preferred PK/PD target and is associated with decreased risk of nephrotoxicity compared to traditional trough targets.
[2022-05-23] MEDS: HYDROCORTISONE SOD 50 MG in SYRINGE 0 ML IV SCH (10:27)
--- NOTE | 2022-05-23 11:38 | Palliative Care Progress Note ---
Date of Service May 23, 2022 Assessment & Plan (1) Altered mental status: Plan: Improved (2) Palliative care encounter: Plan: I talked with Lula about her experience with breathing tube and ventilator support. She described it as "excrutiating". I asked her how she felt about having to do that again if needed and she told me on two separate occasions that she would not want to be reintubated. We talked about the POLST form on her chart but she does not recall discussing that at this time. She did confirm to me that she would want her sister, Yelitza, to be her surrogate decision maker, if she were unable to make decisions. She is agreeable to further discussion with Yelitza to clarify her goals. RN will page when sister arrives. Admission and Anticipated Discharge Date Admission Date: May 18, 2022 Subjective Lula is extubated and awake. She is able to answer some questions and follow some commands. She tells me that she had a stroke and that she does remember have breathing tube in. She describes it as "excrutiating". Review of Systems Review of Systems: ESAS Pain 1/3 with bladder spasm Dyspnea 0/3 Nausea 0/3 Anxiety 0/3 Drowsiness 1/3 Physical Exam Constitutional: + ill appearing ENMT: Mouth: + dry oral mucous membranes Respiratory: normal respiratory effort; no labored breathing Skin: warm and dry Results & Data ([facility]) Vital Signs (Past 12 Hours) Vital Signs Temp Pulse Resp BP Pulse Ox O2 Del Method O2 Flow Rate 05/23/22 08:30 Oxymask 4 05/23/22 07:45 86 21 100 05/23/22 03:30 82 20 100 05/23/22 05:00 98.1 F 77 13 100 05/23/22 05:00 116/79 05/23/22 04:00 98.1 F 80 11 L 100 05/23/22 04:00 114/73 05/23/22 03:00 97.9 F 79 18 100 05/23/22 03:00 119/75 05/23/22 04:00 05/23/22 02:09 97.9 F 78 17 100 05/23/22 01:01 97.9 F 79 17 99 05/23/22 01:00 111/75 05/23/22 00:58 97.9 F 77 11 L 99 05/23/22 00:00 96.8 F L 93 H 22 86 L 05/23/22 00:00 FiO2 05/23/22 08:30 05/23/22 07:45 30 05/23/22 03:30 35 05/23/22 05:00 05/23/22 05:00 05/23/22 04:00 05/23/22 04:00 05/23/22 03:00 05/23/22 03:00 05/23/22 04:00 35 05/23/22 02:09 05/23/22 01:01 05/23/22 01:00 05/23/22 00:58 05/23/22 00:00 05/23/22 00:00 35 PG Care Time/CCT Total # of Minutes Spent Total Time Spent with Patient: Total time spent is greater than 50% in coordination of care (as documented) at patient's floor/unit and/or counseling patient: Coding Level of Care Code 49273 SUB INP/OBS CARE 25MIN Diagnoses Altered mental status R41.82 Palliative care encounter Z51.5
--- NOTE | 2022-05-23 11:40 | Infectious Disease Consult ---
Date of Consultation May 23, 2022 Assessment & Plan (1) Severe sepsis with septic shock: #septic shock -in setting of admission from her SNF with report of diarrhea, AMS, hypotension -CT chest and CT abdomen pelvis without contrast showed nonspecific proctocolitis -05/19 stool PCR panel positive for C. difficile and norovirus. -pt on PO vanco/IV metronidazole -no rectal tube, extubated, remains on neosynephrine gtt, along with midodrine -WBC remains elevated, in setting of also receiving steroids -ARF dramatically improved #abnormal GEORGETTE -MRI brain on 05/21 showed multiple small scattered foci restricted diffusion which represent acute infarcts and favoring embolic etiology. EEG with generalized slowing. -05/22 GEORGETTE showed multiple focal, nonmobile lesions present on both mitral leaflets and a mass present in the left atrial appendage and focal thickening of the left coronary cusp, calcification versus vegetation. 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 - 05/18 blood cultures with coagulase-negative staph not lugdunensis in 2 out of 2 sets, with multiple coagulase-negative staph species in 1 of 2 sets. -05/20 blood cultures are no growth to date. -pt is unable to provide history on recent abx prior to this admission Plan Rec: ID consult requested for endocarditis- coagulase negative staph endocarditis rare unless prosthetic valve present. Multiple species of coagulase negative staph also increases likelihood of contaminants. Repeat Bcxs are NGTD. Pt is on vancomycin IV currently along with treatment for severe C. dif colitis. Unclear how recently pt received antibiotics prior to admission. Will discuss with Dr. Chaudhari. Please page with any questions. Marissa New M.D. [facility] [employer] Pager [phone] Consultation Information Consultation was provided via telemedicine using two-way real-time interactive telecommunication between the patient and the telemedicine provider. For the duration of the visit, the provider was performing the assessment from a different facility than the patient. This includesuse of bluetooth stethoscope forauscultationperformed by the telepresenter that the telemedicine provider can hear if described in the physical exam. Ticket Clerk contact information: Please call Medical Referral Source Call Center . (Phone Number For Physician Use Only) After establishing a telemedicine visit, patient was: Patient was verified with two unique identifiers, Patient/authorized rep acknowledged consent and understanding and Gave permission to continue telehealth session Time Spent with Patient: Initial => 40 min History of Present Illness Attending Physician: Irineo Guzman MD History of Present Illness ID consult requested for endocarditis in this 66-year-old female, past medical history of CVA with right hemiplegia, diabetes type 2, hypertension, MDD/anxiety, A-fib on Eliquis, hyperlipidemia, neurogenic bladder with chronic indwelling Lovelace catheter, COVID infection in February, who presented to the ED on 05/18/2022 from her [facility] facility at [facility] for altered mental status and diarrhea over the past 24 hours. EMS noted that patient's blood pressure was 90s over 70s. In the ED, she was noted to be severely hypotensive and to have gross bloody stool in her brief. She was also noted to have encrusted debris throughout the tube of her urinary catheter with foul-smelling dark urine. Lovelace catheter was replaced per nursing. She was started on Zosyn empirically and given IV fluids but remained hypotensive so Levophed was initiated. IV vancomycin was then added to broaden antibiotic coverage. She was intubated in the ED for airway protection. Admission labs significant for WBC 32.5, 82.9% neutrophils, 4.8% immature granulocytes, creatinine 4.06, lactate 3.1, procalcitonin 2.55. RVP was negative. CT chest and CT abdomen pelvis without contrast showed nonspecific proctocolitis extending from the mid transverse colon distally with small to moderate right pleural effusion. CT head with small ill-defined hypodense foci within the left frontal lobe centrum semiovale likely representing age-i ndeterminate lacunar infarcts. Patient was seen by neurology. MRI brain on 05/21 showed multiple small scattered foci restricted diffusion which represent acute infarcts and favoring embolic etiology. EEG with generalized slowing. 05/22 GEORGETTE showed multiple focal, nonmobile lesions present on both mitral leaflets and a mass present in the left atrial appendage and focal thickening of the left coronary cusp, calcification versus vegetation. 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 Patient was successfully extubated 05/23 to low-flow nasal cannula. 05/18 MRSA screen negative. 05/19 stool PCR panel positive for C. difficile and norovirus. 05/18 blood cultures with coagulase-negative staph not lugdunensis in 2 out of 2 sets, with multiple coagulase-negative staph species in 1 of 2 sets. 05/20 blood cultures are no growth to date. Per review of EMR, pt last hospitalized in February and diagnosed with a UTI and discharged 03/24 with 5 days of ciprofloxacin. Her urine culture had been negative but this was after antibiotics per discharge summary. Patient is currently on vancomycin IV as well as vanco PO and metronidazole IV. She is on midodrine and solumedrol. She has been afebrile. She is currently on phenylephrine. WBC remains elevated at 21.75. Creatinine improved to 0.43 Pt is awake but very limited in answering questions- intermittently follows simple commands. She denies abd pain. She is unaware of any diarrhea. She says she wants to go home. Allergies Allergy/AdvReac Type Severity Reaction Status Date / Time adhesive tape Allergy Unknown Unknown Verified 05/18/22 18:23 aspirin Allergy Unknown Unknown Verified 05/18/22 18:23 atorvastatin Allergy Unknown Unknown Verified 05/18/22 18:23 citalopram [From Celexa] Allergy Unknown Unknown Verified 05/18/22 18:23 Iodinated Contrast Media Allergy Unknown Unknown Verified 05/18/22 18:23 iodine Allergy Unknown Unknown Verified 05/18/22 18:23 latex Allergy Unknown Unknown Verified 05/18/22 18:23 sertraline [From Zoloft] Allergy Unknown Unknown Verified 05/18/22 18:23 Sulfa (Sulfonamide Allergy Unknown Unknown Verified 05/18/22 18:23 Antibiotics) ekg leads Allergy Unknown Unknown Uncoded 05/18/22 18:23 Home Medications Medication Instructions Recorded Confirmed Type acetaminophen 325 mg tablet 650 mg PO Q6 PRN Pain 03/20/22 05/18/22 History acetaminophen 325 mg tablet 650 mg PO Q6 PRN temp>101 03/20/22 05/18/22 History apixaban 5 mg tablet (Eliquis) 5 mg PO BID 03/20/22 05/18/22 History cholecalciferol (vitamin D3) 125 125 mcg PO DAILY 03/20/22 05/18/22 History mcg (5,000 unit) tablet (Vitamin D3) diltiazem HCl 180 mg 180 mg PO DAILY 03/20/22 05/18/22 History capsule,extended release 24 hr furosemide 40 mg tablet 40 mg PO DAILY 03/20/22 05/18/22 History gabapentin 100 mg capsule 200 mg PO DAILY 03/20/22 05/18/22 History lisinopril 10 mg tablet 10 mg PO DAILY 03/20/22 05/18/22 History pravastatin 40 mg tablet 40 mg PO DAILY 03/20/22 05/18/22 History sitagliptin phosphate 100 mg 100 mg PO DAILY 03/20/22 05/18/22 History tablet (Januvia) sotalol 80 mg tablet 80 mg PO BID 03/20/22 05/18/22 History trazodone 150 mg tablet 75 mg PO HS 03/20/22 05/18/22 History insulin glargine 100 unit/mL (3 15 unit (0.15 mL) subcut HS #15 mL 03/24/22 05/18/22 Rx mL) subcutaneous pen (Lantus Solostar U-100 Insulin) Boost Glucose Control 8 oz PO . AT BREAKFAST 05/18/22 05/18/22 History cyanocobalamin (vitamin B-12) 500 500 mcg PO Q OTHER DAY 05/18/22 05/18/22 History mcg tablet (Vitamin B-12) duloxetine 60 mg capsule,delayed 60 mg PO DAILY 05/18/22 05/18/22 History release (Cymbalta) tramadol 50 mg tablet 50 mg PO Q8H PRN pain level 6-10 05/18/22 05/18/22 History Patient History Medical History Acute UTI Altered mental status Depression with anxiety DM2 (diabetes mellitus, type 2) Embolic stroke H/O: CVA (cerebrovascular accident) HLD (hyperlipidemia) HTN (hypertension) Neurogenic bladder Paroxysmal atrial fibrillation Upper GI bleed Surgical History H/O: hysterectomy Family History Other Heart disease Social History Smoking Status: Unknown if ever smoked Second Hand Exposure: No; Do You Dip or Chew Tobacco: No; Tobacco Cessation Education Requested by Patient: No Hx Alcohol Use: No Hx Substance Use: No Preferred Language: Macedonian Communication Ability: Unable Quality Reviewer Required: No Beliefs That Will Affect Care: Evangelical Current Living Situation: Group Home Other Information That Helps Us Care for You: No Feels Safe at Home: Yes Safety Concerns: Feels Safe At This Time Assistive Devices: Wheelchair Physical Exam Physical Exam: PE: Gen: Awake, very fatigued, intermittently responds with yes/no to questions and to simple commands HEENT: on Facemask, CV: distant HS, no appreciated murmurs Resp: Poor effort, Coarse BS anteriorly, decreased bases Abd soft, nontender per pt, ND Extr: 2+ pitting LE edema, +heel protectors : lovelace with clear dark yellow urine. No rectal tube Skin: R IJ abx disc at insertion site, LUE peripheral IVs with some blood at insertion site, Results & Data ([facility]) Vital Signs (Past 12 Hours) Vital Signs Temp Pulse Resp BP Pulse Ox O2 Del Method O2 Flow Rate 05/23/22 08:30 Oxymask 4 05/23/22 07:45 86 21 100 05/23/22 03:30 82 20 100 05/23/22 05:00 36.7 C 77 13 100 05/23/22 05:00 116/79 05/23/22 04:00 36.7 C 80 11 L 100 05/23/22 04:00 114/73 05/23/22 03:00 36.6 C 79 18 100 05/23/22 03:00 119/75 05/23/22 04:00 05/23/22 02:09 36.6 C 78 17 100 05/23/22 01:01 36.6 C 79 17 99 05/23/22 01:00 111/75 05/23/22 00:58 36.6 C 77 11 L 99 05/23/22 00:00 36.0 C L 93 H 22 86 L 05/23/22 00:00 FiO2 05/23/22 08:30 05/23/22 07:45 30 05/23/22 03:30 35 05/23/22 05:00 05/23/22 05:00 05/23/22 04:00 05/23/22 04:00 05/23/22 03:00 05/23/22 03:00 05/23/22 04:00 35 05/23/22 02:09 05/23/22 01:01 05/23/22 01:00 05/23/22 00:58 05/23/22 00:00 05/23/22 00:00 35 Laboratory Results 05/18/22 16:53 Aerobic Blood Culture - Final Blood Coag neg staph not lugdunensis Anaerobic Blood Culture - Final Coag neg staph not lugdunensis Coag neg staph not lugdunensis#2 Coag neg staph not lugdunensis#3 05/18/22 17:22 Aerobic Blood Culture - Preliminary Blood Coag neg staph not lugdunensis Anaerobic Blood Culture - Final 05/23/22 05/23/22 05/23/22 12:08 07:40 07:36 WBC RBC Hgb Hct MCV MCH MCHC RDW Std Deviation RDW Coeff of Nelson Plt Count MPV Immature Gran % (Auto) Neut % (Auto) Lymph % (Auto) Lee % (Auto) Eos % (Auto) Baso % (Auto) Neut # (Auto) Lymph # (Auto) Lee # (Auto) Eos # (Auto) Baso # (Auto) Immature Gran # (Auto) Absolute Nucleated RBC Nucleated RBC % (auto) Echinocytes APTT 52.7 H* PTT Ratio 1.9 Sodium Potassium Chloride Carbon Dioxide Anion Gap BUN Creatinine Est Cr Clr Drug Dosing Est GFR ( Amer) Est GFR (Non-Af Amer) BUN/Creatinine Ratio Glucose POC Glucose 192 H 180 H POC Glucose (other) Calcium Ionized Calcium Phosphorus Magnesium Random Vancomycin 05/23/22 05/23/22 05/23/22 05:34 05:34 05:34 WBC 21.75 H RBC 4.27 Hgb 11.6 L Hct 33.0 L MCV 77.3 L MCH 27.2 MCHC 35.2 RDW Std Deviation 38.9 RDW Coeff of Nelson 14.2 Plt Count 246 MPV 9.4 Immature Gran % (Auto) Neut % (Auto) Lymph % (Auto) Lee % (Auto) Eos % (Auto) Baso % (Auto) Neut # (Auto) Lymph # (Auto) Lee # (Auto) Eos # (Auto) Baso # (Auto) Immature Gran # (Auto) Absolute Nucleated RBC Nucleated RBC % (auto) Echinocytes APTT PTT Ratio Sodium Potassium Chloride Carbon Dioxide Anion Gap BUN Creatinine Est Cr Clr Drug Dosing Est GFR ( Amer) Est GFR (Non-Af Amer) BUN/Creatinine Ratio Glucose POC Glucose POC Glucose (other) Calcium Ionized Calcium 1.09 L Phosphorus Magnesium Random Vancomycin 19.0 05/23/22 05/23/22 05/23/22 05:34 00:26 00:14 WBC RBC Hgb Hct MCV MCH MCHC RDW Std Deviation RDW Coeff of Nelson Plt Count MPV Immature Gran % (Auto) Neut % (Auto) Lymph % (Auto) Lee % (Auto) Eos % (Auto) Baso % (Auto) Neut # (Auto) Lymph # (Auto) Lee # (Auto) Eos # (Auto) Baso # (Auto) Immature Gran # (Auto) Absolute Nucleated RBC Nucleated RBC % (auto) Echinocytes APTT 40.1 H PTT Ratio 1.5 Sodium 133 L Potassium 3.5 Chloride 104 Carbon Dioxide 23 Anion Gap 6 BUN 18 Creatinine 0.43 L Est Cr Clr Drug Dosing 142.9 Est GFR ( Amer) 121.1 Est GFR (Non-Af Amer) 104.5 BUN/Creatinine Ratio 41.9 H Glucose 184 H POC Glucose POC Glucose (other) 144 H Calcium 7.5 L Ionized Calcium Phosphorus 2.6 Magnesium 1.9 Random Vancomycin 05/22/22 05/22/22 05/22/22 20:42 19:27 16:02 WBC RBC Hgb Hct MCV MCH MCHC RDW Std Deviation RDW Coeff of Nelson Plt Count MPV Immature Gran % (Auto) Neut % (Auto) Lymph % (Auto) Lee % (Auto) Eos % (Auto) Baso % (Auto) Neut # (Auto) Lymph # (Auto) Lee # (Auto) Eos # (Auto) Baso # (Auto) Immature Gran # (Auto) Absolute Nucleated RBC Nucleated RBC % (auto) Echinocytes APTT PTT Ratio Sodium Potassium Chloride Carbon Dioxide Anion Gap BUN Creatinine Est Cr Clr Drug Dosing Est GFR ( Amer) Est GFR (Non-Af Amer) BUN/Creatinine Ratio Glucose POC Glucose POC Glucose (other) 132 H 144 H Calcium Ionized Calcium Phosphorus Magnesium Random Vancomycin 23.6 H 05/22/22 05/22/22 15:59 11:37 WBC 19.29 H RBC 4.17 L Hgb 11.3 L Hct 32.3 L MCV 77.5 L MCH 27.1 MCHC 35.0 RDW Std Deviation 38.9 RDW Coeff of Nelson 14.1 Plt Count 238 MPV 9.4 Immature Gran % (Auto) 6.7 Neut % (Auto) 74.7 Lymph % (Auto) 10.2 Lee % (Auto) 7.1 Eos % (Auto) 0.7 Baso % (Auto) 0.6 Neut # (Auto) 14.41 H Lymph # (Auto) 1.97 Lee # (Auto) 1.37 H Eos # (Auto) 0.14 Baso # (Auto) 0.11 Immature Gran # (Auto) 1.29 H Absolute Nucleated RBC 0.02 Nucleated RBC % (auto) 0.1 Echinocytes 2+ APTT PTT Ratio Sodium Potassium Chloride Carbon Dioxide Anion Gap BUN Creatinine Est Cr Clr Drug Dosing Est GFR ( Amer) Est GFR (Non-Af Amer) BUN/Creatinine Ratio Glucose POC Glucose POC Glucose (other) Calcium Ionized Calcium Phosphorus Magnesium Random Vancomycin 48.6 H* Medications Administered Current Medications Amiodarone HCl (Amiodarone 200 Mg Tab) 400 mg PO BID [facility] Stop: 06/22/22 20:59 Dextrose (Dextrose 50% 50 Ml Syringe) 25 - 50 ml IV UD PRN; Protocol PRN Reason: Hypoglycemia Protocol Stop: 06/17/22 23:35 Glucagon (Glucagon For Inj 1 Mg Vial) 1 mg SQ UD PRN; Protocol PRN Reason: Hypoglycemia Protocol Stop: 06/17/22 23:35 Glucose (Glucose 10 Tab/Tube) 4 - 8 tab PO UD PRN; Protocol PRN Reason: Hypoglycemia Treatment Stop: 06/17/22 23:35 Glucose (Glucose 40% Gel 15 Gm Tube) 15 - 30 gm PO UD PRN; Protocol PRN Reason: Hypoglycemia Protocol Stop: 06/17/22 23:35 Pantoprazole Sodium 40 mg/ (Syringe) 10 mls @ 5 mls/min IV BID [facility] Stop: 06/18/22 08:59 Last Admin: 05/23/22 08:07 Dose: 5 mls/min Metronidazole (Flagyl) 500 mg in 100 mls @ 100 mls/hr IV Q8H [facility] Stop: 05/29/22 10:59 Last Admin: 05/23/22 12:17 Dose: 100 mls/hr Heparin Sodium/Dextrose (Heparin Sodium/Dextrose) 25,000 units in 500 mls @ 18 mls/hr IV .Q24H [facility]; Protocol Stop: 06/20/22 10:14 Last Admin: 05/23/22 03:06 Dose: Not Given Phenylephrine HCl (Phenylephrine/Nss) 25 mg in 250 mls @ 29.22 mls/hr IV .Q8H34M [facility]; Protocol Stop: 06/20/22 16:59 Last Admin: 05/23/22 06:03 Dose: 0.4 mcg/kg/min, 23.4 mls/hr Thiamine HCl 500 mg/ Sodium (Chloride) 55 mls @ 210 mls/hr IV DAILY [facility] Stop: 05/24/22 12:00 Last Admin: 05/23/22 08:09 Dose: 210 mls/hr Amiodarone HCl/Dextrose (Nexterone / D5w) 360 mg in 200 mls @ 16.667 mls/hr IV .Q12H [facility] Stop: 05/23/22 17:59 Last Admin: 05/23/22 06:03 Dose: 0.5 mg/min, 16.7 mls/hr Hydrocortisone Sodium (Succinate 50 mg/ Syringe) 1 mls @ 4 mls/min IV QAM [facility] Stop: 06/23/22 08:59 Insulin Aspart (Insulin Aspart Per Unit) 0 units SC Q4 [facility] Stop: 06/18/22 22:59 Last Admin: 05/23/22 12:16 Dose: 3 units Insulin Glargine (Lantus Per Unit Charge) 0 units SQ HS [facility]; Protocol Stop: 06/19/22 20:59 Last Admin: 05/22/22 21:25 Dose: 10 units Midodrine (Midodrine Hcl 2.5 Mg Tab) 5 mg PO TID@0800,1200,1700 [facility] Stop: 06/19/22 11:59 Last Admin: 05/23/22 08:00 Dose: Not Given Miscellaneous (Carbohydrates For Hypoglycemia ) 15 - 30 gm PO UD PRN PRN Reason: Hypoglycemia Protocol Stop: 06/17/22 23:35 Miscellaneous (Icu Electrolyte Replacement Protocol) 1 each N/A BID@06,18 [facility]; Protocol Stop: 05/26/22 05:59 Last Admin: 05/23/22 06:33 Dose: 1 each Miscellaneous (Amiodarone Drip - Stop Order) 1 each N/A TODAY@1759 ONE Stop: 05/23/22 18:00 Miscellaneous Information (Vancomycin Consult Active) 1 each N/A UD PRN PRN Reason: Consult Stop: 06/17/22 18:42 Miscellaneous Information (Pharmacy Glycemic Mgmt Consult) 1 each N/A UD PRN PRN Reason: Consult Stop: 06/18/22 22:55 Multivitamins/Minerals (Multi Vit W/Minerals Liquid 15 Ml Udp) 15 ml GT QAM [facility] Stop: 06/21/22 08:59 Last Admin: 05/23/22 07:59 Dose: 15 ml Nutritional Formula (Peptamen Intense Vhp 1.0 Maxim 1,000 Ml Bag) 1,000 ml OG UD [facility]; Protocol Stop: 06/20/22 10:29 Last Admin: 05/22/22 18:08 Dose: 1,000 ml Sterile Water (Tube Feeding Water Flush) 30 ml OG Q4H [facility] Stop: 06/20/22 10:29 Last Admin: 05/23/22 12:24 Dose: Not Given Vancomycin HCl (Vancomycin Hcl 500 Mg/10 Ml Soln) 500 mg NG Q6 [facility] Stop: 05/30/22 11:59 Last Admin: 05/23/22 12:22 Dose: 500 mg
--- NOTE | 2022-05-23 11:52 | Cardiology Progress Note ---
Date of Service May 23, 2022 Assessment & Plan (1) Ischemic stroke: (2) Palliative care encounter: (3) Severe sepsis with septic shock: (4) Altered mental status: (5) Acute respiratory failure with hypoxia: (6) Acute renal failure: (7) High anion gap metabolic acidosis: (8) Septic shock: (9) H/O: CVA (cerebrovascular accident): (10) HTN (hypertension): (11) Paroxysmal atrial fibrillation: Plan Three separate lesions present that likely represent endocarditis: mitral valve, aortic valve and left atrial appendage given clinical context would recommend continuing to treat for likely endocarditis She has been started on IV amiodarone for supraventricular tachycardia Now that she is extubated I agree with changing over to oral amiodarone We will change to amiodarone 400 mg p.o. twice daily No further cardiac test intervention necessary at this time Admission and Anticipated Discharge Date Admission Date: May 18, 2022 Subjective Patient seen and examined. Chart reviewed. Telemetry reviewed. Patient is currently extubated. Review of Systems Review of Systems: Unobtainable due to reduced consciousness Physical Exam Physical Exam: General: Awake. No acute distress HEENT: Normocephalic, atraumatic. Pupils equal, round and reactive to light and accommodation. Extraocular muscles are intact. Anicteric sclera. Moist mucous membranes. Neck: No JVD. No bruit. Cardiovascular: Regular. Positive S-4. Normal S-1 and S-2. No S-3. No murmurs or rubs. Pulmonary: Clear to auscultation B/L. No rales, rhonchi or wheezing Abdomen: Bowel sounds x 4, soft. No rebound, guarding or tenderness. No organomegaly. Extremities: No clubbing, cyanosis or edema. +2 pedal pulses bilaterally. Skin: Warm and dry. Results & Data ([facility]) Vital Signs (Past 12 Hours) Vital Signs Temp Pulse Resp BP Pulse Ox O2 Del Method O2 Flow Rate 05/23/22 08:30 Oxymask 4 05/23/22 07:45 86 21 100 05/23/22 03:30 82 20 100 05/23/22 05:00 36.7 C 77 13 100 05/23/22 05:00 116/79 05/23/22 04:00 36.7 C 80 11 L 100 05/23/22 04:00 114/73 02/23/23 03:00 36.6 C 79 18 100 05/23/22 03:00 119/75 05/23/22 04:00 05/23/22 02:09 36.6 C 78 17 100 05/23/22 01:01 36.6 C 79 17 99 05/23/22 01:00 111/75 05/23/22 00:58 36.6 C 77 11 L 99 05/23/22 00:00 36.0 C L 93 H 22 86 L 05/23/22 00:00 FiO2 05/23/22 08:30 05/23/22 07:45 30 05/23/22 03:30 35 05/23/22 05:00 05/23/22 05:00 05/23/22 04:00 05/23/22 04:00 05/23/22 03:00 05/23/22 03:00 05/23/22 04:00 35 05/23/22 02:09 05/23/22 01:01 05/23/22 01:00 05/23/22 00:58 05/23/22 00:00 05/23/22 00:00 35
[2022-05-23] MEDS ORDERED: PHARMACIST DISCHARGE MED REC CONSULT PRN (12:33)
--- NOTE | 2022-05-23 13:01 | Pharmacy Report ---
- Date of Service May 23, 2022 - Pharmacy CVA/TIA Medication Review Medications to Prevent Stroke handout has been added to the patients discharge packet. Antiplatelet(s) * Antiplatelet therapy deferred for now due to active bleeding Cholesterol * High intensity statin deferred at this time. Patient on non-high intensity statin at home (pravastatin) but has a listed allergy ?intolerance to atorvastatin. Discussed w Dr. Guzman - plans to obtain more info on statin after patient is able to converse (extubated earlier this AM). DVT Prophylaxis * Covered with therapeutic anticoagulation (below) Therapeutic Anticoagulation * Hx Afib/Aflutter noted, and patient is currently receiving IV heparin Type 2 Diabetes * Patient has T2DM, but per Dr. Guzman, a diabetes medication with proven CVD ayaka efit will be deferred to their outpatient provider due to familiarity with risks/benefits of such therapies. "Medications to prevent stroke" handout has already been added to the patient's discharge packet, which instructs the patient to follow up with their outpatient provider to evaluate which diabetes medication with proven CVD benefit is best for them
--- NOTE | 2022-05-23 14:38 | Hospitalist Progress Note ---
Date of Service May 23, 2022 Assessment & Plan (1) Septic shock: (2) GI bleed: (3) Respiratory failure with hypoxia: (4) MARIA ELENA (acute kidney injury): (5) Hyponatremia: (6) DM2 (diabetes mellitus, type 2): (7) HLD (hyperlipidemia): (8) HTN (hypertension): (9) H/O: CVA (cerebrovascular accident): (10) Neurogenic bladder: (11) Paroxysmal atrial fibrillation: (12) Depression with anxiety: Plan 66-year-old lady, resident at [facility] with PMH of CVA with residual right- sided weakness, chronic indwelling Milan catheter for neurogenic bladder, morbid obesity, HTN, GI bleeds, DM2, chronic hyponatremia, PAF on Eliquis was brought to the ED 05/18 from [facility] for concerns of encephalopathy and reported bloody bowel movements. She was noted to be obtunded, mildly hypothermic and with dried blood in oral cavity at ED and hence was intubated. She reportedly had another bowel movement in the ED that was dark maroon without clots. She is being managed for the following: C. difficile colitis Norovirus Ac Gastroenteritis Gram-positive bacteremia: 05/19 echo neg for vegetation, repeat bl cx 05/20 - NG 48 hours, follow final results. Septic shock likely secondary to above Likely metabolic encephalopathy Concern of endocarditis: ID on board. Ischemic Stroke: need for DAPT (pending stability of GI bleed), Statin (will get more infor once pt is more engaged in conversation as h/o allergy), GLP-1 ago nist vs SGLT 2 inhibitor (defer to PCP office once pt out of acute illness). Patient presents with altered mentation and was intubated due to AMS/dried blood in oral cavity Due to persistent hypotension, started on pressors at admission. Milan catheter was changed in the ED. Admitting labs with WBC of 32.5 K, hemoglobin of 11.8, AG metabolic acidosis in ABG. Pro-Maxim and LA elevated. Respiratory BioFire panel was negative. Admitting CXR with mild pulmonary vascular congestion. Admitting CTAP and CT chest: Nonspecific proctocolitis extending from the mid transverse colon distally. Small to moderate right pleural effusion with mild right basilar atelectasis. Admitting CT head with no new acute findings. 05/21 MRI Brain: Multiple small acute infarcts (b/l occipital lobes/left basal ganglia/other areas), likely embolic etiology. No hge or mass effect. 05/21 EEG: No epileptiform discharges or electrographic seizures were seen. 05/22 GEORGETTE: Mass present in left atrial appendage. Multiple focal, nonmobile lesions present on both mitral leaflets s/o calcification vs vegetation. 05/18 blood culture: CONS not lugudensis 05/20 Bl Cx: [id number] Currently on pressors, metronidazole, vancomycin p.o. and IV. Also on midodrine and Solu-Cortef. Being managed in ICU by ICU team. Neuro evaled. GI bleed: Had dark-colored stool in the ED, admitting hemoglobin of 11.8, on Protonix iv bid, hemoglobin 11.6 today, being managed in ICU. MARIA ELENA: Admitting creatinine of 4.06, secondary to septic shock, resolved. Type II NSTEMI: Troponin elevated likely secondary to acute illness, EKG and echo done/reviewed. SVT: cardio on board, on amiodarone. A-fib on Eliquis: On heparin drip Electrolyte abnormalities: Including hyponatremia, MARIA ELENA, metabolic acidosis. improving. DMII: History of, insulin per ICU protocol. CVA, Neurogenic bladder and anxiety: -holding oral medications -urinary catheter changed in the ER DVT PPx: Hep drip Code Status: DNR/DNI Admission and Anticipated Discharge Date Admission Date: May 18, 2022 Subjective Patient is seen and examined at bedside as a follow-up of septic shock, GI bleed, C. difficile, MARIA ELENA, electrolyte abnormalities. After admission found to have ischemic stroke and concern for infective endocarditis. Patient was lying in bed, extubated in AM, on 2L via Oxymask, on Chandler- Synephrine, awake and answers questions and follow simple commands, denies pain at the moment but appeared sad but wasn't completely able to comprehend what she was saying as rather than dyphasia, it seemed she had weak speech. ROS in detail not able. Physical Exam Physical Exam: Awake on 2L O2 via OM, Obesity class II. extubated in AM, on neosynephrine. Appears sad Urinary catheter with yellow urine noted Heart: RRR, no murmur Lower extremity: No erythema, 2+ pitting edema Respiratory: 2L via OM, clear to auscultation Neurologic: awake and alert, follows commands, garbled speech. Results & Data Results & Data ([facility]) Vital Signs (Past 12 Hours) Vital Signs Temp Pulse Resp BP Pulse Ox O2 Del Method O2 Flow Rate 05/23/22 12:45 36.5 C 87 29 H 98 Oxymask 2 05/23/22 12:30 36.5 C 101 H 17 95 05/23/22 12:15 36.5 C 88 23 100 05/23/22 12:00 36.5 C 87 27 H 99 05/23/22 11:45 36.5 C 88 24 99 05/23/22 11:30 36.5 C 108 H 21 99 05/23/22 11:15 36.3 C L 92 H 19 99 05/23/22 11:00 36.5 C 87 25 H 99 05/23/22 11:00 118/82 05/23/22 10:45 36.5 C 93 H 26 H 97 05/23/22 10:30 36.5 C 84 22 99 05/23/22 10:15 36.5 C 87 22 99 05/23/22 10:00 36.5 C 85 28 H 100 05/23/22 10:00 126/80 05/23/22 09:45 36.6 C 85 19 100 05/23/22 09:30 36.6 C 84 25 H 99 05/23/22 09:15 36.7 C 90 26 H 98 05/23/22 09:00 36.7 C 91 H 18 98 05/23/22 09:00 106/76 05/23/22 08:45 36.8 C 87 28 H 97 05/23/22 08:30 36.8 C 113 H 21 98 05/23/22 08:15 36.8 C 87 24 98 05/23/22 08:00 36.8 C 102 H 10 L 96 05/23/22 08:00 103/81 05/23/22 07:45 36.8 C 81 14 99 05/23/22 07:30 36.8 C 107 H 14 99 05/23/22 07:15 36.8 C 113 H 17 99 05/23/22 07:00 36.8 C 83 18 99 05/23/22 07:00 125/77 05/23/22 08:30 Oxymask 4 05/23/22 07:45 86 21 100 05/23/22 03:30 82 20 100 05/23/22 05:00 36.7 C 77 13 100 05/23/22 05:00 116/79 05/23/22 04:00 36.7 C 80 11 L 100 05/23/22 04:00 114/73 05/23/22 03:00 36.6 C 79 18 100 05/23/22 03:00 119/75 05/23/22 04:00 FiO2 05/23/22 12:45 05/23/22 12:30 05/23/22 12:15 05/23/22 12:00 05/23/22 11:45 05/23/22 11:30 05/23/22 11:15 05/23/22 11:00 05/23/22 11:00 05/23/22 10:45 05/23/22 10:30 05/23/22 10:15 05/23/22 10:00 05/23/22 10:00 05/23/22 09:45 05/23/22 09:30 05/23/22 09:15 05/23/22 09:00 05/23/22 09:00 05/23/22 08:45 05/23/22 08:30 05/23/22 08:15 05/23/22 08:00 05/23/22 08:00 05/23/22 07:45 05/23/22 07:30 05/23/22 07:15 05/23/22 07:00 05/23/22 07:00 05/23/22 08:30 05/23/22 07:45 30 05/23/22 03:30 35 05/23/22 05:00 05/23/22 05:00 05/23/22 04:00 05/23/22 04:00 05/23/22 03:00 05/23/22 03:00 05/23/22 04:00 35
[2022-05-23] MEDS ORDERED: Nursing to Pharmacy Communication SCH ×2 (20:15→23:45)
[2022-05-23] MEDS: LANTUS PER UNIT CHARGE SQ SCH (21:39)
[2022-05-23] MEDS: AMIODARONE 200 MG TAB PO SCH (21:39)
[2022-05-24] MEDS: VANCOMYCIN HCL 500 MG/10 ML SOLN NG SCH (00:32)
[2022-05-24] MEDS: RASPBERRY SYRUP 5 ML UDP PO SCH ×4 (00:57→18:39)
[2022-05-24] MEDS: VANCOMYCIN HCL 500 MG/10 ML SOLN PO SCH ×4 (00:57→18:39)
[2022-05-24] MEDS: metroNIDAZOLE 500 MG/100 ML BAG IV SCH ×3 (05:24→20:25)
[2022-05-24 06:43] LABS: BUN Creatinine Ratio 31.8 (10-20); Calcium 7.6 mg/dl (8.5-10.1); Est GFR (African American) 120.2 ml/min; Est GFR (Non-African American) 103.7 ml/min; Magnesium 1.9 mg/dl (1.7-2.4); Phosphorus 1.9 mg/dl (2.5-4.9); Potassium 3.3 mmol/L (3.5-5.1)
[2022-05-24] MEDS ORDERED: VANCOMYCIN HCL 1,500 MG in SODIUM CHLORIDE 0.9% 500 ML IV ONE (07:30)
[2022-05-24] MEDS ORDERED: POTASSIUM PHOS 3 MMOL/1 ML INFUSION IV STA (07:38)
[2022-05-24 07:42] LABS: Partial Thromboplastin Ratio 2.1
[2022-05-24 07:54] LABS: Partial Thromboplastin Time 58.5 Seconds (21.0-31.0)
[2022-05-24] MEDS ORDERED: POTASSIUM PHOSPHATE 15 MMOL in SODIUM CHLORIDE 0.9% 250 ML IV ONE (08:00)
[2022-05-24] MEDS: INSULIN ASPART PER UNIT SC SCH ×4 (08:08→20:49)
[2022-05-24] MEDS: PANTOprazole 40 MG in SYRINGE 0 ML IV SCH ×2 (08:21→21:32)
[2022-05-24] MEDS: AMIODARONE 200 MG TAB PO SCH ×2 (08:21→20:29)
[2022-05-24] MEDS: THIAMINE HCL 500 MG in SODIUM CHLORIDE 0.9% 50 ML IV SCH (08:32)
[2022-05-24] MEDS ORDERED: POTASSIUM CHLORIDE CRTAB 20 MEQ TABCR PO SCH (09:00)
[2022-05-24] MEDS ORDERED: HYDROCORTISONE SOD 50 MG in SYRINGE 0 ML IV SCH (09:00)
--- NOTE | 2022-05-24 10:18 | Infectious Disease Progress Nt ---
Date of Service May 24, 2022 Assessment & Plan (1) Severe sepsis with septic shock: Plan: #septic shock -in setting of admission from her SNF with report of diarrhea, AMS, hypotension -CT chest and CT abdomen pelvis without contrast showed nonspecific proctocoli tis -05/19 stool PCR panel positive for C. difficile and norovirus. -pt on PO vanco/IV metronidazole -no rectal tube, extubated, now on RA -WBC remains elevated, in setting of also receiving steroids -ARF dramatically improved #abnormal GEORGETTE -MRI brain on 05/21 showed multiple small scattered foci restricted diffusion which represent acute infarcts and favoring embolic etiology. EEG with generali zed slowing. -05/22 GEORGETTE showed multiple focal, nonmobile lesions present on both mitral leaflets and a mass present in the left atrial appendage and focal thickening of the left coronary cusp, calcification versus vegetation. 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 - 05/18 blood cultures with coagulase-negative staph not lugdunensis in 2 out of 2 sets, with 2 different coagulase-negative staph species in 1 of 2 sets- for 1 species, vanco SOL is 2. -05/20 blood cultures are no growth to date. -pt is unable to provide history- including on recent abx prior to this admission Plan Rec: Multiple species of coagulase negative staph increases likelihood of contaminants and coagulase negative staph endocarditis rare unless prosthetic valve present. I spoke to micro lab- as there are 2 types of FINISHING FRAME RUNNER in 1 set with different susceptibilities, I requested that susceptibility testing be performed on the FINISHING FRAME RUNNER in the other set- results should be available Friday. If susceptibilities of all 3 are different, unlikely to be true bacteremia. 05/20 repeat Bcxs are NGTD. Pt is not able to provide history, so would ask primary team to determine from SNF if pt was on antibiotics for period of 4 weeks prior to admission. Cardiology recommending treatment for IE. Will change vancomycin to daptomycin 700 mg (~10 mg/kg based on adjusted body weight) IV daily for ease of administration long-term and vanco SOL. CPK ordered for AM baseline. Pt not on statin. Would continue metronidazole IV and vanco PO for treatment of c. dif colitis. Please page with any questions. Marissa New M.D. [facility] [employer] Pager [phone] Admission and Anticipated Discharge Date Admission Date: May 18, 2022 Subjective Subsequent visit was provided via telemedicine using two-way real-time interactive telecommunication between the patient and the telemedicine provider. For the duration of the visit, the provider was performing the assessment from a different facility than the patient. This includesuse of bluetooth stethoscope forauscultationperformed by the telepresenter that the telemedicine provider can hear if described in the physical exam. Systems Mgr contact information: Please call [employer] Connect Call Center . (Phone Number For Physician Use Only) After establishing a telemedicine visit, patient was: Patient was verified with two unique identifiers, Patient/authorized rep acknowledged consent and understanding and Gave permission to continue telehealth session Time Spent with Patient: Subsequent => 25 min Pt is awake, more alert today, following commands- she is not responding to most of my questions but had been talking to her nurse at bedside. She is on RA. She denies pain. Per discussion with her RN, she had ~3-4 BMs yesterday, 1 episode was reported earlier today- unknown consistency. On skin exam, she has excoriated areas- folds of skin, perirectally but no wounds/lesions other than small wound L dorsal hand. Physical Exam Physical Exam: PE: Gen: Awake, intermittently responds with yes/no to questions, follows simple commands HEENT: anicteric, on RA CV: distant HS, no appreciated murmurs Resp: clear anteriorly, decreased bases Abd soft, NT/ND Extr: 2+ pitting LE edema, +heel protectors : lovelace with clear dark yellow urine. No rectal tube Skin: R IJ abx disc at insertion site, LUE peripheral IVs with some blood at insertion site- erythema above antecubital fossa appears to be contact dermatitis rather than cellulitis Results & Data ([facility]) Vital Signs (Past 12 Hours) Vital Signs Temp Pulse Resp BP Pulse Ox FiO2 05/24/22 07:22 36.4 C 94 H 16 107/75 96 05/24/22 06:57 94 H 05/23/22 23:17 36.6 C 97 H 18 113/76 97 05/23/22 22:24 94 H 17 97 21 Laboratory Results 05/24/22 05/24/22 05/24/22 08:00 07:28 06:11 APTT 58.5 H* PTT Ratio 2.1 Sodium Potassium Chloride Carbon Dioxide Anion Gap BUN Creatinine Est Cr Clr Drug Dosing Est GFR ( Amer) Est GFR (Non-Af Amer) BUN/Creatinine Ratio Glucose POC Glucose 126 H Calcium Ionized Calcium Phosphorus Magnesium Random Vancomycin 17.6 05/24/22 05/24/22 05/23/22 06:11 06:11 20:46 APTT PTT Ratio Sodium 131 L Potassium 3.3 L Chloride 104 Carbon Dioxide 23 Anion Gap 4 BUN 14 Creatinine 0.44 L Est Cr Clr Drug Dosing 137.0 Est GFR ( Amer) 120.2 Est GFR (Non-Af Amer) 103.7 BUN/Creatinine Ratio 31.8 H Glucose 156 H POC Glucose 163 H Calcium 7.6 L Ionized Calcium 1.11 L Phosphorus 1.9 L Magnesium 1.9 Random Vancomycin 05/23/22 05/23/22 05/23/22 19:45 15:33 12:08 APTT PTT Ratio Sodium Potassium Chloride Carbon Dioxide Anion Gap BUN Creatinine Est Cr Clr Drug Dosing Est GFR ( Amer) Est GFR (Non-Af Amer) BUN/Creatinine Ratio Glucose POC Glucose 175 H 192 H Calcium Ionized Calcium Phosphorus Magnesium Random Vancomycin 23.0 H Medications Administered Current Medications Amiodarone HCl (Amiodarone 200 Mg Tab) 400 mg PO BID [facility] Stop: 06/22/22 20:59 Last Admin: 05/24/22 08:21 Dose: 400 mg Dextrose (Dextrose 50% 50 Ml Syringe) 25 - 50 ml IV UD PRN; Protocol PRN Reason: Hypoglycemia Protocol Stop: 06/17/22 23:35 Glucagon (Glucagon For Inj 1 Mg Vial) 1 mg SQ UD PRN; Protocol PRN Reason: Hypoglycemia Protocol Stop: 06/17/22 23:35 Glucose (Glucose 10 Tab/Tube) 4 - 8 tab PO UD PRN; Protocol PRN Reason: Hypoglycemia Treatment Stop: 06/17/22 23:35 Glucose (Glucose 40% Gel 15 Gm Tube) 15 - 30 gm PO UD PRN; Protocol PRN Reason: Hypoglycemia Protocol Stop: 06/17/22 23:35 Pantoprazole Sodium 40 mg/ (Syringe) 10 mls @ 5 mls/min IV BID [facility] Stop: 06/18/22 08:59 Last Admin: 05/24/22 08:21 Dose: 5 mls/min Metronidazole (Flagyl) 500 mg in 100 mls @ 100 mls/hr IV Q8H [facility] Stop: 05/29/22 10:59 Last Infusion: 05/24/22 06:40 Dose: Infused Heparin Sodium/Dextrose (Heparin Sodium/Dextrose) 25,000 units in 500 mls @ 18 mls/hr IV .Q24H [facility]; Protocol Stop: 06/20/22 10:14 Last Titration: 05/24/22 08:08 Dose: 900 units/hr, 18 mls/hr Thiamine HCl 500 mg/ Sodium (Chloride) 55 mls @ 210 mls/hr IV DAILY [facility] Stop: 05/24/22 12:00 Last Infusion: 05/24/22 10:32 Dose: Infused Hydrocortisone Sodium (Succinate 50 mg/ Syringe) 1 mls @ 4 mls/min IV QAM [facility] Stop: 06/23/22 08:59 Last Admin: 05/24/22 08:22 Dose: 4 mls/min Insulin Aspart (Insulin Aspart Per Unit) 0 units SC ACHS [facility] Stop: 06/18/22 22:59 Last Admin: 05/24/22 08:08 Dose: 2 units Insulin Glargine (Lantus Per Unit Charge) 0 units SQ HS [facility]; Protocol Stop: 06/19/22 20:59 Last Admin: 05/23/22 21:39 Dose: 10 units Midodrine (Midodrine Hcl 2.5 Mg Tab) 5 mg PO TID@0800,1200,1700 [facility] Stop: 06/19/22 11:59 Last Admin: 05/24/22 10:59 Dose: 5 mg Miscellaneous (Carbohydrates For Hypoglycemia ) 15 - 30 gm PO UD PRN PRN Reason: Hypoglycemia Protocol Stop: 06/17/22 23:35 Miscellaneous Information (Vancomycin Consult Active) 1 each N/A UD PRN PRN Reason: Consult Stop: 06/17/22 18:42 Miscellaneous Information (Pharmacy Glycemic Mgmt Consult) 1 each N/A UD PRN PRN Reason: Consult Stop: 06/18/22 22:55 Miscellaneous Information (Pharmacist Discharge Med Rec Consult) 1 each N/A UD PRN PRN Reason: Consult Stop: 06/22/22 12:44 Multivitamins/Minerals (Multi Vit W/Minerals Liquid 15 Ml Udp) 15 ml GT QAM [facility] Stop: 06/21/22 08:59 Last Admin: 05/24/22 10:32 Dose: Not Given Potassium Chloride (Potassium Chloride Crtab 20 Meq Tabcr) 40 meq PO QAM [facility] Stop: 06/23/22 08:59 Last Admin: 05/24/22 08:21 Dose: 40 meq Raspberry (Raspberry Syrup 5 Ml Udp) 5 ml PO Q6 [facility] Stop: 05/30/22 11:59 Last Admin: 05/24/22 05:25 Dose: 5 ml Vancomycin HCl (Vancomycin Hcl 500 Mg/10 Ml Soln) 500 mg PO Q6 [facility] Stop: 05/30/22 11:59 Last Admin: 05/24/22 05:24 Dose: 500 mg
[2022-05-24] MEDS: MULTI VIT W/MINERALS LIQUID 15 ML UDP GT SCH (10:32)
[2022-05-24] MEDS: MIDODRINE HCL 2.5 MG TAB PO SCH ×3 (10:59→17:59)
--- NOTE | 2022-05-24 11:07 | Pharmacy Report ---
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 Notes that coag negative Staph is not a common pathogen for endocarditis (unless prosthetic joint). Furthermore, two different isolates of coag negative Staph raise question of contaminants, despite both blood cultures being positive * Microbiology * Blood cultures (05/18): (+) CoNS spp in 06/01. BCID2 notes Staph epidermidis with methicillin resistance gene detected. Culture result indicates one isolate is methicillin resistant and the other is methicillin sensitive. * Repeat blood cultures (05/20): remain (-) * C.diff gene and toxin positive * Stool GI panel with Norovirus * Serum creatinine stable and at baseline ~0.4. However, decreased urine output 05/22. Slight improvement in UOP 05/23. Possibly stable or continuing to improve today. This was also associated with impaired clearance of vancomycin, and although clearance does seem to be increasing slightly, it's still lower than expected based on SCr alone. Vancomycin * Will continue to dose based on level due to slower clearance of vancomycin noted * Random level this AM of 17.6 mcg/mL - OK to re-dose x1 this AM * Repeat random level this evening * Duration to be determined by ID input - anticipate could be prolonged if treating as endocarditis Plan * Vancomycin 1500 mg IV x1 this AM * Random level at 2000 Pharmacy will continue to follow and will adjust dose/frequency as necessary. Thank you. Pharmacy has transitioned to AUC monitoring for vancomycin. AUC/SOL is the preferred PK/PD target and is associated with decreased risk of nephrotoxicity compared to traditional trough targets.
--- NOTE | 2022-05-24 13:33 | Palliative Care Progress Note ---
Date of Service May 24, 2022 Assessment & Plan (1) Palliative care encounter: Plan: Lula has been clear in multiple discussions with me and other providers that she does not want resuscitation and would not want reintubation. She has an advance directive which also says the same thing. Her sister, Yelitza Perez, is her medical POA and supports this decision. I spoke with Yelitza for 20 minutes about Lula's advance directive and goals of care. The current POLST form which indicates full code, full treatment is not longer valid and will be removed from the chart. Admission and Anticipated Discharge Date Admission Date: May 18, 2022 Subjective Awake. Very weak. Denies pain or discomfort. Mild confusion, (th[place] the mall and doesn't remember her sister coming to visit her yesterday) Review of Systems Review of Systems: ESAS Pain 0/3 Dyspnea 0/3 Nausea 0/3 Drowsiness 0/3 Physical Exam Constitutional: + ill appearing; no acute distress ENMT: Mouth: oral mucous membranes not dry Respiratory: normal respiratory effort; no labored breathing Skin: warm and dry Results & Data ([facility]) Vital Signs (Past 12 Hours) Vital Signs Temp Pulse Resp BP Pulse Ox O2 Del Method 05/24/22 11:59 96.5 F L 83 18 133/68 99 05/24/22 11:16 Room Air 05/24/22 07:22 97.6 F 94 H 16 107/75 96 05/24/22 06:57 94 H PG Care Time/CCT Total # of Minutes Spent Total Time Spent: 40 Total Time Spent with Patient: Total time spent is greater than 50% in coordination of care (as documented) at patient's floor/unit and/or counseling patient: goals of care, code status, POLST, patient and family education and support Coding Level of Care Code 76739 SUB INP/OBS CARE 2/35MIN Diagnoses Palliative care encounter Z51.5
[2022-05-24] MEDS: DAPTOmycin 700 MG in SYRINGE 0 ML IV SCH (14:00)
--- NOTE | 2022-05-24 14:24 | Pharmacy Report ---
Pharmacy Glycemic Short Note 2 - Date of Service May 24, 2022 - Glycemic Short BSG Results (Last 24 hours): 05/23/22 05/23/22 05/24/22 15:33 20:46 06:11 Glucose 156 H POC Glucose 175 H 163 H 05/24/22 05/24/22 08:00 11:40 Glucose POC Glucose 126 H 127 H OUTPATIENT ANTIDIABETIC REGIMEN: * Lantus 15 units SQ HS * Sitagliptin 100mg PO daily HbA1C: 5.6% (03/20/22) ASSESSMENT: 05/24/22 * Patient's BSGs yesterday were [phone] mg/dL. Patient received 24 units of insulin (10 units of basal and 14 units of bolus). * Patient extubated and tube feeds stopped. Hydrocortisone 50 mg IV daily ongoing. Patient remains on heparin infusion. For antibiotics, she is on IV daptomycin, PO vancomycin, and IV flagyl. * BSGs today are 126-127 mg/dL. * Fasting trending downwards and tube feeds stopped. Decrease Lantus to 8 units (20% reduction). * Continue Novolog. 05/23: * Goal range 140-180 mg/dL for ICU status patient. BSG's in lower end of goal range yesterday, now trending up to upper end of goal range due to initiation of steroids yesterday * Patient now extubated as of this AM, and tubefeeds on hold (previously only running at 10 mL/hr ~ 3 g CHO q4h - not anticipated to have a significant impact on BSG's). Speech assessment pending. Steroids tapering by half. * Anticipated that increased stressors leading to rise in BSG's will now dissipate and BSG's will fall again without intervention. Will not change basal nor bolus regimen at this time. 05/22: * BSGs within goal range the last 24h. Received 10 units of basal and 9 units bolus insulin yesterday. * Remains intubated. Peptamen Intense VHP initiated at [facility] yesterday. Continues to require vasopressor support. Hydrocortisone 50mg IV q12h started today. * Continue Novolog q4 with coverage of tube feeds as advanced. Novolog parameters may need titrated with tube feed advancement and addition of steroids. Scaled HS Lantus. 05/20: * Pt is a 66 YO female admitted from a facility with severe sepsis and septic shock. She is currently critically ill, intubated, sedated, and requiring vasopressor support. History of DM2 - pharmacy consulted to assist with glycemic management. * Initiated on an insulin drip yesterday -- discontinued last evening due to hypokalemia (K-2.5). Lantus 20 units SQ X 1 given and Novolog q4 (CF- 25mg/dL/unit) initiated. * BSGs elevated since discontinuation of infusion last night: [phone]/dL. * She remains intubated and on pressors. NPO. Continues on IV antibiotics and PO vanc. SCr down-trending. * Novolog parameters tightened this AM to CF 20mg/dL/unit q4. Given BSGs have down-trended throughout the day today ([phone]/dL), will continue with q4 Novolog and an HS Lantus scale tonight. If BSGs rebound into 300s and potassium WNL, would consider resuming insulin infusion for hyperglycemia in setting of critical illness. PLAN FOR INPATIENT GLYCEMIC CONTROL: * Hold outpatient oral diabetes medications * Basal insulin * Lantus 8 HS * Bolus insulin * NovoLog per scale ACHS or Q4hrs while NPO * Goal Range: Low 110 mg/dL - High 140 mg/dL * Correction Factor: 25 mg/dL/unit * Nutritional / Prandial insulin per carb ratio of 1 unit per 9 grams CHO consumed
--- NOTE | 2022-05-24 16:30 | Hospitalist Progress Note ---
Date of Service May 24, 2022 Assessment & Plan (1) Septic shock: (2) GI bleed: (3) Respiratory failure with hypoxia: (4) MARIA ELENA (acute kidney injury): (5) Hyponatremia: (6) DM2 (diabetes mellitus, type 2): (7) HLD (hyperlipidemia): (8) HTN (hypertension): (9) H/O: CVA (cerebrovascular accident): (10) Neurogenic bladder: (11) Paroxysmal atrial fibrillation: (12) Depression with anxiety: Plan 66-year-old lady, resident at [facility] with PMH of CVA with residual right- sided weakness, chronic indwelling Milan catheter for neurogenic bladder, morbid obesity, HTN, GI bleeds, DM2, chronic hyponatremia, PAF on Eliquis was brought to the ED 05/18 from [facility] for concerns of encephalopathy and reported bloody bowel movements. She was noted to be obtunded, mildly hypothermic and with dried blood in oral cavity at ED and hence was intubated. She reportedly had another bowel movement in the ED that was dark maroon without clots. She is being managed for the following: C. difficile colitis Norovirus Ac Gastroenteritis Gram-positive bacteremia: 05/19 TT-echo neg for vegetation, repeat bl cx 05/20 - NG 48 hours, follow final results. Septic shock likely secondary to above Likely metabolic encephalopathy Concern of endocarditis: ID on board. Ischemic Stroke: need for DAPT (pending stability of GI bleed), Statin (will get more infor once pt is more engaged in conversation as h/o allergy), GLP-1 agonist vs SGLT 2 inhibitor (defer to PCP office once pt out of acute illness). Patient presents with altered mentation and was intubated due to AMS/dried blood in oral cavity Due to persistent hypotension, started on pressors at admission. Milan catheter was changed in the ED. Admitting labs with WBC of 32.5 K, hemoglobin of 11.8, AG metabolic acidosis in ABG. Pro-Maxim and LA elevated. Respiratory BioFire panel was negative. Admitting CXR with mild pulmonary vascular congestion. Admitting CTAP and CT chest: Nonspecific proctocolitis extending from the mid transverse colon distally. Small to moderate right pleural effusion with mild right basilar atelectasis. Admitting CT head with no new acute findings. 05/21 MRI Brain: Multiple small acute infarcts (b/l occipital lobes/left basal ganglia/other areas), likely embolic etiology. No hge or mass effect. 05/21 EEG: No epileptiform discharges or electrographic seizures were seen. 05/22 GEORGETTE: Mass present in left atrial appendage. Multiple focal, nonmobile lesions present on both mitral leaflets s/o calcification vs vegetation. 05/18 blood culture: CONS not lugudensis 05/20 Bl Cx: NG48H Currently on midodrine, metronidazole, vancomycin p.o. Will DC Solu-Cortef. Taper midodrine as able. ID on board: Vanco changed to dapto 05/24; c/w metron iv and vanc po for C diff colitis. fu cpk and labs in am GI bleed: Had dark-colored stool in the ED, admitting hemoglobin of 11.8, on Protonix iv bid, hemoglobin stable aroun d11.5, labs in AM. MARIA ELENA: Admitting creatinine of 4.06, secondary to septic shock, resolved. Type II NSTEMI: Troponin elevated likely secondary to acute illness, EKG and echo done/reviewed. SVT: cardio on board, on amiodarone. A-fib on Eliquis: On heparin drip Electrolyte abnormalities: Including hyponatremia, MARIA ELENA, metabolic acidosis. improving. DMII: History of, sliding scale. CVA, Neurogenic bladder and anxiety: -holding oral medications -urinary catheter changed in the ER DVT PPx: Hep drip Code Status: DNR/DNI Admission and Anticipated Discharge Date Admission Date: May 18, 2022 Subjective Patient is seen and examined at bedside as a follow-up of septic shock, GI bleed, C. difficile, MARIA ELENA, electrolyte abnormalities. After admission found to have ischemic stroke and concern for infective endocarditis. Patient was lying in bed, on RA, awake, alert, mildly confused, answers most questions appropriately, more clear speech, denies pain , ate some per RN, has black brown bm overnight per RN. Denies headache/dizziness/chest pain/other ROS. Reports being weak and tired. Called pt's snf to find more information on the patient care; left voicemail to call us back. Physical Exam Physical Exam: Awake , alert, oriented x 2, answer appropriately, speech clear. Appears better Urinary catheter with yellow urine noted Heart: RRR, no murmur Lower extremity: No erythema, 2+ pitting edema Respiratory: on RA, clear to auscultation Neurologic: awake and alert, follows commands, clear speech. Results & Data Results & Data ([facility]) Vital Signs (Past 12 Hours) Vital Signs Temp Pulse Resp BP Pulse Ox O2 Del Method 05/24/22 11:59 35.8 C L 83 18 133/68 99 05/24/22 11:16 Room Air 05/24/22 07:22 36.4 C 94 H 16 107/75 96 05/24/22 06:57 94 H
[2022-05-24] MEDS: LANTUS PER UNIT CHARGE SQ SCH (21:32)
[2022-05-24] MEDS: HEPARIN SODIUM/DEXTROSE 25,000 UNITS/500 ML BAG IV SCH (23:18)
[2022-05-25] MEDS: RASPBERRY SYRUP 5 ML UDP PO SCH ×5 (00:59→23:40)
[2022-05-25] MEDS: VANCOMYCIN HCL 500 MG/10 ML SOLN PO SCH ×5 (00:59→23:40)
[2022-05-25] MEDS: metroNIDAZOLE 500 MG/100 ML BAG IV SCH ×3 (05:06→20:33)
[2022-05-25 06:16] LABS: Hematocrit (blood only) 33.4 % (37.0-47.0); Hemoglobin 11.9 g/dl (12.0-16.0); Mean Corpuscular Hemoglobin 27.3 pg (25.0-34.0); Mean Corpuscular Hgb Conc 35.6 g/dL (32.0-36.0); Mean Corpuscular Volume 76.6 fL (80.0-100.0); Mean Platelet Volume 9.9 fL (9.4-12.4); Platelet Count 243 K/uL (130-400); RDW Coefficient of Variation 15.4 % (11.5-14.5); RDW Standard Deviation 40.2 fL (36.4-46.3); Red Blood Count 4.36 M/uL (4.20-5.40); White Blood Count 24.95 K/ul (4.8-10.8)
[2022-05-25 06:34] LABS: Calcium 7.7 mg/dl (8.5-10.1); Creatinine Clr Calc Pharmacy 97.7 ml/min; Est GFR (African American) 107.4 ml/min; Est GFR (Non-African American) 92.7 ml/min; Magnesium 1.8 mg/dl (1.7-2.4); Phosphorus 2.5 mg/dl (2.5-4.9); Potassium 4.3 mmol/L (3.5-5.1)
[2022-05-25 07:07] LABS: Partial Thromboplastin Ratio 2.1
[2022-05-25 07:08] LABS: Partial Thromboplastin Time 57.6 Seconds (21.0-31.0)
[2022-05-25] MEDS: PANTOprazole 40 MG in SYRINGE 0 ML IV SCH (08:21)
[2022-05-25] MEDS: MIDODRINE HCL 2.5 MG TAB PO SCH ×3 (08:23→17:16)
[2022-05-25] MEDS: MULTI VIT W/MINERALS LIQUID 15 ML UDP GT SCH (08:23)
[2022-05-25] MEDS: AMIODARONE 200 MG TAB PO SCH ×2 (08:23→20:33)
[2022-05-25] MEDS: INSULIN ASPART PER UNIT SC SCH ×4 (08:29→22:20)
[2022-05-25] MEDS: DAPTOmycin 700 MG in SYRINGE 0 ML IV SCH (11:42)
--- NOTE | 2022-05-25 16:21 | Hospitalist Progress Note ---
Date of Service May 25, 2022 Assessment & Plan (1) Septic shock: (2) GI bleed: (3) Respiratory failure with hypoxia: (4) MARIA ELENA (acute kidney injury): (5) Hyponatremia: (6) DM2 (diabetes mellitus, type 2): (7) HLD (hyperlipidemia): (8) HTN (hypertension): (9) H/O: CVA (cerebrovascular accident): (10) Neurogenic bladder: (11) Paroxysmal atrial fibrillation: (12) Depression with anxiety: Plan 66-year-old lady, resident at [facility] with PMH of CVA with residual right- sided weakness, chronic indwelling Milan catheter for neurogenic bladder, morbid obesity, HTN, GI bleeds, DM2, chronic hyponatremia, PAF on Eliquis was brought to the ED 05/18 from [facility] for concerns of encephalopathy and reported bloody bowel movements. She was noted to be obtunded, mildly hypothermic and with dried blood in oral cavity at ED and hence was intubated. She reportedly had another bowel movement in the ED that was dark maroon without clots. She is being managed for the following: C. difficile colitis Norovirus Ac Gastroenteritis Gram-positive bacteremia: 05/19 TT-echo neg for vegetation, repeat bl cx 05/20 - NG 48 hours, follow final results. Septic shock likely secondary to above Likely metabolic encephalopathy: resolving Concern of endocarditis: ID on board. Ischemic Stroke: need for DAPT (pending stability of GI bleed), Statin (will get more infor once pt is more engaged in conversation as h/o allergy), GLP-1 agonist vs SGLT 2 inhibitor (defer to PCP office once pt out of acute illness). Patient presents with altered mentation and was intubated due to AMS/dried blood in oral cavity Due to persistent hypotension, started on pressors at admission. Milan catheter was changed in the ED. Admitting labs with WBC of 32.5 K, hemoglobin of 11.8, AG metabolic acidosis in ABG. Pro-Maxim and LA elevated. Respiratory BioFire panel was negative. Admitting CXR with mild pulmonary vascular congestion. Admitting CTAP and CT chest: Nonspecific proctocolitis extending from the mid transverse colon distally. Small to moderate right pleural effusion with mild right basilar atelectasis. Admitting CT head with no new acute findings. 05/21 MRI Brain: Multiple small acute infarcts (b/l occipital lobes/left basal ganglia/other areas), likely embolic etiology. No hge or mass effect. 05/21 EEG: No epileptiform discharges or electrographic seizures were seen. 05/22 GEORGETTE: Mass present in left atrial appendage. Multiple focal, nonmobile lesions present on both mitral leaflets s/o calcification vs vegetation. 05/18 blood culture: CONS not lugudensis 05/20 Bl Cx: NG48H Currently on midodrine, metronidazole, vancomycin p.o. Procal now wnl. Taper midodrine as able. --- bid today. ID on board: Vanco changed to dapto 05/24; c/w metron iv and vanc po for C diff colitis. 05/24 cpk 22, pending ID final recs. GI bleed: Had dark-colored stool in the ED, admitting hemoglobin of 11.8, on Protonix iv bid to po bid today, hemoglobin stable around 11.5, labs in AM. Brandi alonzo today per RN. MARIA ELENA: Admitting creatinine of 4.06, secondary to septic shock, resolved. Type II NSTEMI: Troponin elevated likely secondary to acute illness, EKG and echo done/reviewed. SVT: cardio on board, on amiodarone. A-fib on Eliquis: On heparin drip, likely back to home eliquis ike. Electrolyte abnormalities: Including hyponatremia, MARIA ELENA, metabolic acidosis. improving. Sacral wound, stage II: not sure if POA, pt chronically on bed per [facility]. WOCN. DMII: History of, sliding scale. CVA, Neurogenic bladder and anxiety: -holding oral medications -urinary catheter changed in the ER DVT PPx: Hep drip Code Status: DNR/DNI Dispo: pending final id recs, will reach out to neuro once i can get more hx regarding aspirin/statin from pt. likely will happen over the weekdays. Admission and Anticipated Discharge Date Admission Date: May 18, 2022 Subjective Patient is seen and examined at bedside as a follow-up of septic shock, GI bleed, C. difficile, MARIA ELENA, electrolyte abnormalities. After admission found to have ischemic stroke and concern for infective endocarditis. Patient was lying in bed, on RA, awake, alert, oriented today, answers most questions appropriately but still no answer to some difficult questions regarding her meds and allergies hx, more clear speech than yesterday, denies pain , ate ok per RN, has brown bm in am per RN. Denies headache/dizziness/chest pain/other ROS. Reports being weak and tired. Physical Exam Physical Exam: Awake , alert, oriented x 3, answer appropriately, speech clear. Appears better Urinary catheter with yellow urine noted Heart: RRR, no murmur Lower extremity: No erythema, 2+ pitting edema Respiratory: on RA, clear to auscultation Neurologic: awake and alert, follows commands, clear speech. Results & Data Results & Data ([facility]) Vital Signs (Past 12 Hours) Vital Signs Temp Pulse Pulse Resp BP BP Pulse Ox 05/25/22 11:49 36.8 C 95 H 18 134/83 95 05/25/22 08:00 05/25/22 07:00 88 05/25/22 07:43 36.8 C 95 H 20 145/83 H 94 05/25/22 04:21 36.6 C 92 H 18 125/80 94 O2 Del Method 05/25/22 11:49 Room Air 05/25/22 08:00 Room Air 05/25/22 07:00 05/25/22 07:43 Room Air 05/25/22 04:21
[2022-05-25] MEDS ORDERED: FUROSEMIDE INJ 20 MG/2 ML VIAL IV ONE (16:30)
[2022-05-25] MEDS: PANTOprazole 40 MG TAB PO SCH (20:35)
[2022-05-25] MEDS: LANTUS PER UNIT CHARGE SQ SCH (22:20)
[2022-05-26] MEDS: HEPARIN SODIUM/DEXTROSE 25,000 UNITS/500 ML BAG IV SCH (03:14)
[2022-05-26] MEDS: metroNIDAZOLE 500 MG/100 ML BAG IV SCH ×3 (03:15→20:34)
[2022-05-26 05:28] LABS: Hematocrit (blood only) 34.7 % (37.0-47.0); Hemoglobin 12.1 g/dl (12.0-16.0); Mean Corpuscular Hemoglobin 27.1 pg (25.0-34.0); Mean Corpuscular Hgb Conc 34.9 g/dL (32.0-36.0); Mean Corpuscular Volume 77.8 fL (80.0-100.0); Mean Platelet Volume 9.8 fL (9.4-12.4); Nucleated RBC # (auto) 0.03 K/uL (0-0.12); Nucleated RBC % (auto) 0.1 %; Platelet Count 231 K/uL (130-400); RDW Coefficient of Variation 15.6 % (11.5-14.5); RDW Standard Deviation 41.1 fL (36.4-46.3); Red Blood Count 4.46 M/uL (4.20-5.40); White Blood Count 22.08 K/ul (4.8-10.8)
[2022-05-26 05:44] LABS: Calcium 7.8 mg/dl (8.5-10.1); Magnesium 1.7 mg/dl (1.7-2.4); Potassium 4.7 mmol/L (3.5-5.1)
[2022-05-26 05:49] LABS: Creatinine Clr Calc Pharmacy 93.2 ml/min; Est GFR (African American) 105.7 ml/min; Est GFR (Non-African American) 91.2 ml/min; Phosphorus 2.9 mg/dl (2.5-4.9)
[2022-05-26 05:52] LABS: Partial Thromboplastin Ratio 2.6
[2022-05-26 06:05] LABS: Partial Thromboplastin Time 71.1 Seconds (21.0-31.0)
[2022-05-26] MEDS: VANCOMYCIN HCL 500 MG/10 ML SOLN PO SCH ×3 (06:21→17:13)
[2022-05-26] MEDS: RASPBERRY SYRUP 5 ML UDP PO SCH ×3 (06:21→17:13)
[2022-05-26] MEDS: AMIODARONE 200 MG TAB PO SCH ×2 (08:09→21:34)
[2022-05-26] MEDS: MIDODRINE HCL 2.5 MG TAB PO SCH (08:09)
[2022-05-26] MEDS: FUROSEMIDE 40 MG TAB PO SCH (08:10)
[2022-05-26] MEDS: MULTI VIT W/MINERALS LIQUID 15 ML UDP GT SCH (08:10)
[2022-05-26] MEDS: PANTOprazole 40 MG TAB PO SCH ×2 (08:12→21:33)
[2022-05-26] MEDS: INSULIN ASPART PER UNIT SC SCH ×4 (08:53→20:54)
[2022-05-26] MEDS: DAPTOmycin 700 MG in SYRINGE 0 ML IV SCH (11:34)
[2022-05-26 13:05] LABS: Partial Thromboplastin Ratio 2.3
[2022-05-26 13:07] LABS: Partial Thromboplastin Time 63.4 Seconds (21.0-31.0)
--- NOTE | 2022-05-26 15:56 | Hospitalist Progress Note ---
Date of Service May 26, 2022 Assessment & Plan (1) Septic shock: (2) GI bleed: (3) Respiratory failure with hypoxia: (4) MARIA ELENA (acute kidney injury): (5) Hyponatremia: (6) DM2 (diabetes mellitus, type 2): (7) HLD (hyperlipidemia): (8) HTN (hypertension): (9) H/O: CVA (cerebrovascular accident): (10) Neurogenic bladder: (11) Paroxysmal atrial fibrillation: (12) Depression with anxiety: Plan 66-year-old lady, resident at [facility] with PMH of CVA with residual right- sided weakness, chronic indwelling Milan catheter for neurogenic bladder, morbid obesity, HTN, GI bleeds, DM2, chronic hyponatremia, PAF on Eliquis was brought to the ED 05/18 from [facility] for concerns of encephalopathy and reported bloody bowel movements. She was noted to be obtunded, mildly hypothermic and with dried blood in oral cavity at ED and hence was intubated. She reportedly had another bowel movement in the ED that was dark maroon without clots. She is being managed for the following: C. difficile colitis Norovirus Ac Gastroenteritis Gram-positive bacteremia: 05/19 TT-echo neg for vegetation, repeat bl cx 05/20 - NG 48 hours, follow final results. Septic shock likely secondary to above Likely metabolic encephalopathy: resolving Concern of endocarditis: ID on board. Ischemic Stroke: need for DAPT (pending stability of GI bleed), Statin (will get more infor once pt is more engaged in conversation as h/o allergy), GLP-1 agonist vs SGLT 2 inhibitor (defer to PCP office once pt out of acute illness). Patient presents with altered mentation and was intubated due to AMS/dried blood in oral cavity Due to persistent hypotension, started on pressors at admission. Milan catheter was changed in the ED. Admitting labs with WBC of 32.5 K, hemoglobin of 11.8, AG metabolic acidosis in ABG. Pro-Maxim and LA elevated. Respiratory BioFire panel was negative. Admitting CXR with mild pulmonary vascular congestion. Admitting CTAP and CT chest: Nonspecific proctocolitis extending from the mid transverse colon distally. Small to moderate right pleural effusion with mild right basilar atelectasis. Admitting CT head with no new acute findings. 05/21 MRI Brain: Multiple small acute infarcts (b/l occipital lobes/left basal ganglia/other areas), likely embolic etiology. No hge or mass effect. 05/21 EEG: No epileptiform discharges or electrographic seizures were seen. 05/22 GEORGETTE: Mass present in left atrial appendage. Multiple focal, nonmobile lesions present on both mitral leaflets s/o calcification vs vegetation. 05/18 blood culture: CONS not lugudensis 05/20 Bl Cx: NG48H Currently on midodrine, metronidazole, vancomycin p.o. Procal now wnl. Taper midodrine as able. --- daily today. ID on board: Vanco changed to dapto 05/24; c/w metron iv and vanc po for C diff colitis. 05/24 cpk , pending ID final recs. GI bleed: Had dark-colored stool in the ED, admitting hemoglobin of 11.8, on Protonix po bid, hemoglobin stable around 11.5, labs in AM. Brown bm last 2 days per RN. Will transition hep drip to eliquis in the evening. MARIA ELENA: Admitting creatinine of 4.06, secondary to septic shock, resolved. Type II NSTEMI: Troponin elevated likely secondary to acute illness, EKG and echo done/reviewed. SVT: cardio on board, on amiodarone. A-fib on Eliquis: On heparin drip, likely back to home eliquis today evening. Electrolyte abnormalities: Including hyponatremia, MARIA ELENA, metabolic acidosis. improving. Sacral wound, stage II: not sure if POA, pt chronically on bed per [facility]. WOCN. DMII: History of, sliding scale. CVA, Neurogenic bladder and anxiety: -holding oral medications -urinary catheter changed in the ER DVT PPx: Hep drip to home eliquis in PM. Code Status: DNR/DNI Dispo: pending final id recs, will reach out to neuro once i can get more hx regarding aspirin/statin from pt. likely will happen over the weekdays. 05/24: Received a call back from the nurse at [facility] who also took care of Lula. The RN states that Lula was not on any antibiotic in the last 2 months, she stays at the bed 100% of the time, weak on right side, oriented and completely appropriate at baseline, also inquired about allergies listed to atorvastatin and aspirin. On both of these drugs only cutaneous reaction is listed as an allergy on their side and they know no more than this about her allergies to aspirin and statin. Once the patient recovers better, will try to get more history from the patient herself. Admission and Anticipated Discharge Date Admission Date: May 18, 2022 Subjective Patient is seen and examined at bedside as a follow-up of septic shock, GI bleed, C. difficile, MARIA ELENA, electrolyte abnormalities. After admission found to have ischemic stroke and concern for infective endocarditis. Patient was lying in bed, on RA, awake, alert, oriented but appears sad and then became happy when she knew her sister was coming to visit her today, didn't eat breakfast today, had brown BM overnight per RN, denies pain. Denies headache/dizziness/chest pain/other ROS. Reports being weak and tired. is swollen, will make stricter fluid restriction, increase protein content in diet. Physical Exam Physical Exam: Awake , alert, oriented x 3, answer appropriately, speech clear. Appears better Urinary catheter with yellow urine noted Heart: RRR, no murmur Lower extremity: No erythema, 2+ pitting edema Respiratory: on RA, clear to auscultation Neurologic: awake and alert, follows commands, clear speech. Sacral stage II ulcer. does not look infected. Results & Data Results & Data ([facility]) Vital Signs (Past 12 Hours) Vital Signs Temp Pulse Pulse Resp BP Pulse Ox O2 Del Method 05/26/22 11:26 36.7 C 83 18 128/77 94 Room Air 05/26/22 07:30 Room Air 05/26/22 07:30 85 05/26/22 07:13 36.6 C 85 20 127/73 94 Room Air
[2022-05-26] MEDS: LANTUS PER UNIT CHARGE SQ SCH (21:16)
[2022-05-26] MEDS: APIXABAN 5 MG TABLET PO SCH (22:13)
[2022-05-27] MEDS ORDERED: AMIODARONE / D5W 150 MG/100 ML BAG IV STA (00:31)
[2022-05-27] MEDS ORDERED: STAT IV Infusion **Titration per Protocol STA (00:31)
[2022-05-27] MEDS ORDERED: 0.2 MICRON FILTER SET 1 EACH IV STA (00:31)
[2022-05-27] MEDS ORDERED: AMIODARONE IV BOLUS & DRIP IV STA (00:31)
--- NOTE | 2022-05-27 00:38 | Communication Note ---
Date of Service: May 27, 2022 0030 AM Patient tachycardic, rapid SVT as per RN, heart rate 160s to 170s, SBP 100s. Asymptomatic as per RN. Tachycardia unresponsive to vagal maneuvers as per RN. AP Rapid SVT Borderline hypotension Amiodarone infusion Continue oral amiodarone Check electrolytes We will ask AM provider to update Cardiology. 6:40 AM Patient with blood-tinged mucoid bowel movements. No abdominal pain as per RN. Hemoglobin 11.1 from 12.1 yesterday AP Acute on chronic anemia Painless L GIB History C. difficile colitis currently on oral vancomycin Eliquis Rx for A-fib Follow H&H Hold Eliquis for now
[2022-05-27] MEDS ORDERED: AMIODARONE / D5W 360 MG/200 ML BAG IV ONE (00:41)
[2022-05-27 01:18] LABS: Basophils # (auto) 0.05 K/uL (0-0.2); Basophils % (auto) 0.2 %; Eosinophils # (auto) 0.12 K/uL (0-0.50); Eosinophils % (auto) 0.6 %; Hematocrit (blood only) 31.7 % (37.0-47.0); Hemoglobin 11.1 g/dl (12.0-16.0); Immature Granulocytes % (auto) 3.7 %; Lymphocytes # (auto) 2.99 K/uL (1.2-3.4); Lymphocytes % (auto) 13.8 %; Mean Corpuscular Hemoglobin 27.3 pg (25.0-34.0); Mean Corpuscular Volume 77.9 fL (80.0-100.0); Mean Platelet Volume 9.7 fL (9.4-12.4); Monocytes # (auto) 2.54 K/uL (0.11-0.59); Monocytes % (auto) 11.8 %; Neutrophils # (auto) 15.11 K/uL (1.40-6.50); Neutrophils % (auto) 69.9 %; Nucleated RBC # (auto) 0.02 K/uL (0-0.12); Nucleated RBC % (auto) 0.1 %; Platelet Count 253 K/uL (130-400); RDW Coefficient of Variation 15.4 % (11.5-14.5); RDW Standard Deviation 39.8 fL (36.4-46.3); Red Blood Count 4.07 M/uL (4.20-5.40); White Blood Count 21.61 K/ul (4.8-10.8)
[2022-05-27] MEDS: VANCOMYCIN HCL 500 MG/10 ML SOLN PO SCH ×4 (01:18→17:50)
[2022-05-27] MEDS: RASPBERRY SYRUP 5 ML UDP PO SCH ×4 (01:18→17:50)
[2022-05-27 01:29] LABS: Partial Thromboplastin Ratio 1.2; Partial Thromboplastin Time 34.2 Seconds (21.0-31.0)
[2022-05-27] MEDS: MAGNESIUM SULFATE / D5W 1 GM/100 ML BAG IV SCH ×2 (01:29→03:00)
[2022-05-27 01:52] LABS: Albumin Globulin Ratio 0.9 (0.9-2); Albumin Level 2.1 gm/dl (3.4-5.0); BUN Creatinine Ratio 18.8 (10-20); Bilirubin,Total 0.7 mg/dl (0.2-1.0); Calcium 7.6 mg/dl (8.5-10.1); Creatinine Clr Calc Pharmacy 88.3 ml/min; Est GFR (African American) 103.7 ml/min; Est GFR (Non-African American) 89.4 ml/min; Globulin 2.4 gm/dl (2.5-4.0); Magnesium 1.5 mg/dl (1.7-2.4); Phosphorus 2.7 mg/dl (2.5-4.9); Potassium 3.5 mmol/L (3.5-5.1); Total Protein 4.5 gm/dl (6.0-8.3)
[2022-05-27] MEDS ORDERED: POTASSIUM CHLORIDE PWD 20 MEQ PACK PO STA (02:21)
[2022-05-27] MEDS: metroNIDAZOLE 500 MG/100 ML BAG IV SCH ×2 (03:39→12:27)
[2022-05-27] MEDS: MIDODRINE HCL 2.5 MG TAB PO SCH (03:41)
[2022-05-27] MEDS ORDERED: AMIODARONE / D5W 360 MG/200 ML BAG IV SCH (06:45)
[2022-05-27] MEDS ORDERED: MIDODRINE HCL 2.5 MG TAB PO SCH (07:00)
[2022-05-27] MEDS: AMIODARONE 200 MG TAB PO SCH ×2 (08:31→21:14)
[2022-05-27] MEDS: MULTI VIT W/MINERALS LIQUID 15 ML UDP GT SCH (08:31)
[2022-05-27] MEDS: PANTOprazole 40 MG TAB PO SCH ×2 (08:31→21:15)
[2022-05-27] MEDS: FUROSEMIDE 40 MG TAB PO SCH (08:31)
[2022-05-27] MEDS: POTASSIUM CHLORIDE PWD 20 MEQ PACK PO SCH ×2 (08:32→21:15)
--- NOTE | 2022-05-27 08:42 | Pharmacy Report ---
Pharmacy Glycemic Short Note 2 - Date of Service May 27, 2022 - Glycemic Short BSG Results (Last 24 hours): 05/26/22 05/26/22 05/26/22 11:25 16:51 20:45 Glucose POC Glucose 111 H 86 112 H 05/27/22 05/27/22 01:08 07:58 Glucose 115 H POC Glucose 136 H OUTPATIENT ANTIDIABETIC REGIMEN: * Lantus 15 units SQ HS * Sitagliptin 100mg PO daily HbA1C: 5.6% (03/20/22) ASSESSMENT: 05/27/22: * BSGs well-controlled yesterday, ranging 86-131 mg/dL. However, nursing notes report patient refusal to eat. * No insulin administered yesterday. Will hold off on basal this morning until PO intake can be further assessed. * Lunch BSG of 169 mg/dL with 16 g of documented carbs - will restart basal now with lunchtime 05/24/22 * Patient's BSGs yesterday were [phone] mg/dL. Patient received 24 units of insulin (10 units of basal and 14 units of bolus). * Patient extubated and tube feeds stopped. Hydrocortisone 50 mg IV daily ongoing. Patient remains on heparin infusion. For antibiotics, she is on IV daptomycin, PO vancomycin, and IV flagyl. * BSGs today are 126-127 mg/dL. * Fasting trending downwards and tube feeds stopped. Decrease Lantus to 8 units (20% reduction). * Continue Novolog. 05/23: * Goal range 140-180 mg/dL for ICU status patient. BSG's in lower end of goal range yesterday, now trending up to upper end of goal range due to initiation of steroids yesterday * Patient now extubated as of this AM, and tubefeeds on hold (previously only running at 10 mL/hr ~ 3 g CHO q4h - not anticipated to have a significant impact on BSG's). Speech assessment pending. Steroids tapering by half. * Anticipated that increased stressors leading to rise in BSG's will now dissipate and BSG's will fall again without intervention. Will not change basal nor bolus regimen at this time. Background: * Pt is a 66 YO female admitted from a facility with severe sepsis and septic shock. She is currently critically ill, intubated, sedated, and requiring vasopressor support. History of DM2 - pharmacy consulted to assist with glycemic management. * Initiated on an insulin drip yesterday -- discontinued last evening due to hypokalemia (K-2.5). Lantus 20 units SQ X 1 given and Novolog q4 (CF- 25mg/dL/unit) initiated. * BSGs elevated since discontinuation of infusion last night: [phone]/dL. * She remains intubated and on pressors. NPO. Continues on IV antibiotics and PO vanc. SCr down-trending. * Novolog parameters tightened this AM to CF 20mg/dL/unit q4. Given BSGs have down-trended throughout the day today ([phone]/dL), will continue with q4 Novolog and an HS Lantus scale tonight. If BSGs rebound into 300s and potassium WNL, would consider resuming insulin infusion for hyperglycemia in setting of critical illness. PLAN FOR INPATIENT GLYCEMIC CONTROL: * Hold outpatient oral diabetes medications * Basal insulin * Lantus 8 units SC x 1 with lunch * Reassess in AM * Bolus insulin * NovoLog per scale ACHS or Q4hrs while NPO * Goal Range: Low 110 mg/dL - High 140 mg/dL * Correction Factor: 25 mg/dL/unit * Nutritional / Prandial insulin per carb ratio of 1 unit per 8 grams CHO consumed
[2022-05-27] MEDS: INSULIN ASPART PER UNIT SC SCH ×4 (09:15→21:14)
--- NOTE | 2022-05-27 10:38 | Infectious Disease Progress Nt ---
Date of Service May 27, 2022 Assessment & Plan (1) Severe sepsis with septic shock: Plan: 66-year-old female, past medical history of CVA with right hemiplegia, diabetes type 2, hypertension, MDD/anxiety, A-fib on Eliquis, hyperlipidemia, neurogenic bladder with chronic indwelling Milan catheter, COVID infection in February, who presented to the ED on 05/18/2022 from her nursing home facility at [facility] for altered mental status and diarrhea over the past 24 hours. Problem List #Endocarditis, multiple mitral and aortic valve #Acute brain infarcts #Septic shock resolved #CoNS bacteremia #Cdiff Colitis #Leukocytosis ABX Daptomycin CPK 05/25: 22 05/24- Flagyl 500mg IV q8 hours Vancomycin po #septic shock, resolved -in setting of admission from her SNF with report of diarrhea, AMS, hypotension -CT chest and CT abdomen pelvis without contrast showed nonspecific proctocolitis -05/19 stool PCR panel positive for C. difficile and norovirus. -pt on PO vanco/IV metronidazole -no rectal tube, extubated, now on RA -WBC remains elevated, in setting of also receiving steroids -ARF dramatically improved #abnormal GEORGETTE -MRI brain on 05/21 showed multiple small scattered foci restricted diffusion which represent acute infarcts and favoring embolic etiology. EEG with generalized slowing. -05/22 GEORGETTE showed multiple focal, nonmobile lesions present on both mitral leaflets and a mass present in the left atrial appendage and focal thickening of the left coronary cusp, calcification versus vegetation. 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 - 05/18 blood cultures with coagulase-negative staph not lugdunensis in 2 out of 2 sets, with 2 different coagulase-negative staph species in 1 of 2 sets- for 1 species, vanco SOL is 2. -05/20 blood cultures are no growth to date. -pt is unable to provide history- including on recent abx prior to this admission Recommend: Multiple species of coagulase negative staph increases likelihood of contaminants and coagulase negative staph endocarditis rare unless prosthetic valve present. Dr. New spoke to micro lab- as there are 2 types of VENEER LATHE OPERATOR in 1 set with different susceptibilities, I requested that susceptibility testing be performed on the VENEER LATHE OPERATOR in the other set- One is oxacillin sensi, the other is oxacillin R. 05/20 repeat Bcxs are NGTD. Pt is not able to provide history, so would ask primary team to determine from SNF if pt was on antibiotics for period of 4 weeks prior to admission. Cardiology recommending treatment for IE. Antibiotics changed from vancomycin to daptomycin 700 mg (~10 mg/kg based on adjusted body weight) IV daily for ease of administration long-term and vanco SOL. CPK ordered for AM baseline. Pt not on statin. Would continue metronidazole IV and vanco PO for treatment of c. dif colitis. Plan Plan to continue with IV daptomycin anticipate treatment for 6 weeks from negative blood culture, likely through 07/01/22 Plan to treat for Cdiff colitis with Po Vancomycin, we can dc IV Flagyl ID following with you Will speak to primary team Mel Rodriguez MD Infectious Diseases Admission and Anticipated Discharge Date Admission Date: May 18, 2022 Subjective This patient recommendation is based on a telemedicine consult request which was completed asynchronously through chart review and information provided by the primary physician. The patient was not seen or examined today. The evaluation is consultative in nature and all patient care and treatment decisions can either be accepted or rejected by the patient's primary hospital-based treating physician using their own independent medical judgment for their patient. Time Spent Reviewing Chart: 31+ minutes 24 hours/ Over the weekend No acute events. Reviewed Microbiology results and she has 2 different CoNS species from prior cultures Vitals are stable Results & Data ([facility]) Vital Signs (Past 12 Hours) Vital Signs Temp Pulse Pulse Pulse Resp BP Pulse Ox 05/27/22 08:00 90 05/27/22 07:36 102 H 16 117/75 94 05/27/22 02:46 36.9 C 99 H 20 105/67 94 05/27/22 00:55 36.9 C 119 H 96/62 L 92 05/26/22 23:24 36.7 C 120 H 20 109/69 94 05/26/22 22:50 O2 Del Method 05/27/22 08:00 05/27/22 07:36 Room Air 05/27/22 02:46 Room Air 05/27/22 00:55 Room Air 05/26/22 23:24 Room Air 05/26/22 22:50 Room Air Laboratory Results Laboratory Results - last 48 hr 05/25/22 05/25/22 05/25/22 09:46 11:34 16:49 WBC RBC Hgb Hct MCV MCH MCHC RDW Std Deviation RDW Coeff of Nelson Plt Count MPV Immature Gran % (Auto) Neut % (Auto) Lymph % (Auto) [place] % (Auto) Eos % (Auto) Baso % (Auto) Neut # (Auto) Lymph # (Auto) [place] # (Auto) Eos # (Auto) Baso # (Auto) Immature Gran # (Auto) Absolute Nucleated RBC Nucleated RBC % (auto) APTT PTT Ratio Sodium Potassium Chloride Carbon Dioxide Anion Gap BUN Creatinine Est Cr Clr Drug Dosing Est GFR ( Amer) Est GFR (Non-Af Amer) BUN/Creatinine Ratio Glucose POC Glucose 133 H 156 H Calcium Phosphorus Magnesium Total Bilirubin AST ALT Alkaline Phosphatase Total Protein Albumin Globulin Albumin/Globulin Ratio Procalcitonin 0.10 05/25/22 05/26/22 05/26/22 20:57 05:09 05:09 WBC 22.08 H RBC 4.46 Hgb 12.1 Hct 34.7 L MCV 77.8 L MCH 27.1 MCHC 34.9 RDW Std Deviation 41.1 RDW Coeff of Nelson 15.6 H Plt Count 231 MPV 9.8 Immature Gran % (Auto) Neut % (Auto) Lymph % (Auto) [place] % (Auto) Eos % (Auto) Baso % (Auto) Neut # (Auto) Lymph # (Auto) [place] # (Auto) Eos # (Auto) Baso # (Auto) Immature Gran # (Auto) Absolute Nucleated RBC 0.03 Nucleated RBC % (auto) 0.1 APTT 71.1 H* PTT Ratio 2.6 Sodium Potassium Chloride Carbon Dioxide Anion Gap BUN Creatinine Est Cr Clr Drug Dosing Est GFR ( Amer) Est GFR (Non-Af Amer) BUN/Creatinine Ratio Glucose POC Glucose 188 H Calcium Phosphorus Magnesium Total Bilirubin AST ALT Alkaline Phosphatase Total Protein Albumin Globulin Albumin/Globulin Ratio Procalcitonin 05/26/22 05/26/22 05/26/22 05:09 07:24 08:04 WBC RBC Hgb Hct MCV MCH MCHC RDW Std Deviation RDW Coeff of Nelson Plt Count MPV Immature Gran % (Auto) Neut % (Auto) Lymph % (Auto) [place] % (Auto) Eos % (Auto) Baso % (Auto) Neut # (Auto) Lymph # (Auto) [place] # (Auto) Eos # (Auto) Baso # (Auto) Immature Gran # (Auto) Absolute Nucleated RBC Nucleated RBC % (auto) APTT PTT Ratio Sodium 133 L Potassium 4.7 Chloride 104 Carbon Dioxide 24 Anion Gap 5 BUN 13 Creatinine 0.65 Est Cr Clr Drug Dosing 93.2 Est GFR ( Amer) 105.7 Est GFR (Non-Af Amer) 91.2 BUN/Creatinine Ratio 20.0 Glucose 144 H POC Glucose 131 H 150 H Calcium 7.8 L Phosphorus 2.9 Magnesium 1.7 Total Bilirubin AST ALT Alkaline Phosphatase Total Protein Albumin Globulin Albumin/Globulin Ratio Procalcitonin 05/26/22 05/26/22 05/26/22 11:25 12:07 16:51 WBC RBC Hgb Hct MCV MCH MCHC RDW Std Deviation RDW Coeff of Nelson Plt Count MPV Immature Gran % (Auto) Neut % (Auto) Lymph % (Auto) [place] % (Auto) Eos % (Auto) Baso % (Auto) Neut # (Auto) Lymph # (Auto) [place] # (Auto) Eos # (Auto) Baso # (Auto) Immature Gran # (Auto) Absolute Nucleated RBC Nucleated RBC % (auto) APTT 63.4 H* PTT Ratio 2.3 Sodium Potassium Chloride Carbon Dioxide Anion Gap BUN Creatinine Est Cr Clr Drug Dosing Est GFR ( Amer) Est GFR (Non-Af Amer) BUN/Creatinine Ratio Glucose POC Glucose 111 H 86 Calcium Phosphorus Magnesium Total Bilirubin AST ALT Alkaline Phosphatase Total Protein Albumin Globulin Albumin/Globulin Ratio Procalcitonin 05/26/22 05/27/22 05/27/22 20:45 01:08 01:08 WBC RBC Hgb Hct MCV MCH MCHC RDW Std Deviation RDW Coeff of Nelson Plt Count MPV Immature Gran % (Auto) Neut % (Auto) Lymph % (Auto) [place] % (Auto) Eos % (Auto) Baso % (Auto) Neut # (Auto) Lymph # (Auto) [place] # (Auto) Eos # (Auto) Baso # (Auto) Immature Gran # (Auto) Absolute Nucleated RBC Nucleated RBC % (auto) APTT 34.2 H PTT Ratio 1.2 Sodium 134 L Potassium 3.5 D Chloride 104 Carbon Dioxide 23 Anion Gap 7 BUN 13 Creatinine 0.69 Est Cr Clr Drug Dosing 88.3 Est GFR ( Amer) 103.7 Est GFR (Non-Af Amer) 89.4 BUN/Creatinine Ratio 18.8 Glucose 115 H POC Glucose 112 H Calcium 7.6 L Phosphorus 2.7 Magnesium 1.5 L Total Bilirubin 0.7 AST 16 ALT 11 Alkaline Phosphatase 65 Total Protein 4.5 L Albumin 2.1 L Globulin 2.4 L Albumin/Globulin Ratio 0.9 Procalcitonin 05/27/22 05/27/22 01:08 07:58 WBC 21.61 H RBC 4.07 L Hgb 11.1 L Hct 31.7 L MCV 77.9 L MCH 27.3 MCHC 35.0 RDW Std Deviation 39.8 RDW Coeff of [place] 15.4 H Plt Count 253 MPV 9.7 Immature Gran % (Auto) 3.7 Neut % (Auto) 69.9 Lymph % (Auto) 13.8 [place] % (Auto) 11.8 Eos % (Auto) 0.6 Baso % (Auto) 0.2 Neut # (Auto) 15.11 H Lymph # (Auto) 2.99 [place] # (Auto) 2.54 H Eos # (Auto) 0.12 Baso # (Auto) 0.05 Immature Gran # (Auto) 0.80 H Absolute Nucleated RBC 0.02 Nucleated RBC % (auto) 0.1 APTT PTT Ratio Sodium Potassium Chloride Carbon Dioxide Anion Gap BUN Creatinine Est Cr Clr Drug Dosing Est GFR ( Amer) Est GFR (Non-Af Amer) BUN/Creatinine Ratio Glucose POC Glucose 136 H Calcium Phosphorus Magnesium Total Bilirubin AST ALT Alkaline Phosphatase Total Protein Albumin Globulin Albumin/Globulin Ratio Procalcitonin Microbiology 05/20/22 03:55 Blood Aerobic Blood Culture - Final No growth in Aerobic bottle after 5 days. 05/20/22 03:55 Blood Anaerobic Blood Culture - Final No growth in Anaerobic bottle after 5 days. 05/20/22 03:55 Blood Aerobic Blood Culture - Final No growth in Aerobic bottle after 5 days. 05/20/22 03:55 Blood Anaerobic Blood Culture - Final No growth in Anaerobic bottle after 5 days. 05/18/22 16:53 Blood Aerobic Blood Culture - Final Coag neg staph not lugdunensis 05/18/22 16:53 Blood Anaerobic Blood Culture - Final Coag neg staph not lugdunensis Coag neg staph not lugdunensis#2 Coag neg staph not lugdunensis#3 05/18/22 17:22 Blood Aerobic Blood Culture - Preliminary Coag neg staph not lugdunensis 05/18/22 17:22 Blood Anaerobic Blood Culture - Final Medications Administered Current Inpatient Medications Amiodarone HCl (Amiodarone 200 Mg Tab) 400 mg PO BID [facility] Stop: 06/22/22 20:59 Last Admin: 05/27/22 08:31 Dose: 400 mg Apixaban (Apixaban 5 Mg Tablet) 5 mg PO BID [facility] Stop: 06/25/22 20:59 Last Admin: 05/26/22 22:13 Dose: 5 mg Dextrose (Dextrose 50% 50 Ml Syringe) 25 - 50 ml IV UD PRN; Protocol PRN Reason: Hypoglycemia Protocol Stop: 06/17/22 23:35 Furosemide (Furosemide 40 Mg Tab) 40 mg PO DAILY [facility] Stop: 06/25/22 08:59 Last Admin: 05/27/22 08:31 Dose: 40 mg Glucagon (Glucagon For Inj 1 Mg Vial) 1 mg SQ UD PRN; Protocol PRN Reason: Hypoglycemia Protocol Stop: 06/17/22 23:35 Glucose (Glucose 10 Tab/Tube) 4 - 8 tab PO UD PRN; Protocol PRN Reason: Hypoglycemia Treatment Stop: 06/17/22 23:35 Glucose (Glucose 40% Gel 15 Gm Tube) 15 - 30 gm PO UD PRN; Protocol PRN Reason: Hypoglycemia Protocol Stop: 06/17/22 23:35 Metronidazole (Flagyl) 500 mg in 100 mls @ 100 mls/hr IV Q8H [facility] Stop: 05/29/22 10:59 Last Infusion: 05/27/22 04:44 Dose: Infused Daptomycin 700 mg/ Syringe 14 mls @ 7 mls/min IV Q24H [facility]; Protocol Stop: 07/05/22 11:59 Last Admin: 05/26/22 11:34 Dose: 7 mls/min Insulin Aspart (Insulin Aspart Per Unit) 0 units SC ACHS [facility] Stop: 06/18/22 22:59 Last Admin: 05/27/22 09:15 Dose: Not Given Insulin Glargine (Lantus Per Unit Charge) 8 units SQ HS [facility] Stop: 06/23/22 20:59 Last Admin: 05/26/22 21:16 Dose: Not Given Magnesium Oxide (Magnesium Oxide 400 Mg Tab) 400 mg PO BID [facility] Stop: 06/26/22 08:59 Metoprolol Succinate (Metoprolol Succ 25mg Ext Rel Tab) 12.5 mg PO QAM [facility] Stop: 06/26/22 09:59 Midodrine (Midodrine Hcl 2.5 Mg Tab) 5 mg PO DAILY@0700 [facility] Stop: 06/26/22 02:24 Last Admin: 05/27/22 03:41 Dose: 5 mg Miscellaneous (Carbohydrates For Hypoglycemia ) 15 - 30 gm PO UD PRN PRN Reason: Hypoglycemia Protocol Stop: 06/17/22 23:35 Miscellaneous Information (Pharmacy Glycemic Mgmt Consult) 1 each N/A UD PRN PRN Reason: Consult Stop: 06/18/22 22:55 Miscellaneous Information (Pharmacist Discharge Med Rec Consult) 1 each N/A UD PRN PRN Reason: Consult Stop: 06/22/22 12:44 Multivitamins/Minerals (Multi Vit W/Minerals Liquid 15 Ml Udp) 15 ml GT QAM [facility] Stop: 06/21/22 08:59 Last Admin: 05/27/22 08:31 Dose: 15 ml Pantoprazole Sodium (Pantoprazole 40 Mg Tab) 40 mg PO BID [facility] Stop: 06/24/22 20:59 Last Admin: 05/27/22 08:31 Dose: 40 mg Potassium Chloride (Potassium Chloride Pwd 20 Meq Pack) 20 meq PO BID [facility] Stop: 06/26/22 08:59 Last Admin: 05/27/22 08:32 Dose: 20 meq Raspberry (Raspberry Syrup 5 Ml Udp) 5 ml PO Q6 [facility] Stop: 05/30/22 11:59 Last Admin: 05/27/22 05:56 Dose: 5 ml Vancomycin HCl (Vancomycin Hcl 500 Mg/10 Ml Soln) 500 mg PO Q6 [facility] Stop: 05/30/22 11:59 Last Admin: 05/27/22 05:56 Dose: 500 mg
--- NOTE | 2022-05-27 10:48 | Cardiology Progress Note ---
Date of Service May 27, 2022 Assessment & Plan (1) Ischemic stroke: (2) Palliative care encounter: (3) Severe sepsis with septic shock: (4) Altered mental status: (5) Acute respiratory failure with hypoxia: (6) Acute renal failure: (7) High anion gap metabolic acidosis: (8) Septic shock: (9) H/O: CVA (cerebrovascular accident): (10) HTN (hypertension): (11) Paroxysmal atrial fibrillation: (12) Endocarditis: Plan Medically complex 66 year old admitted for sepsis, bacteremia, hypotension, CVA, and complicated by GI bleed. She required several days of mechanical ventilation with pressors, but now off therapy and extubated. Cardio was asked to evaluate again today for recurrent arrhythmias overnight. Patient has a history of PAF, was previously on sotalol and diltiazem as outpatient. These were stopped on admission with sepsis, hypotension. Due to recurrent atrial arrhythmias, IV amiodarone was initiated during hospitalization and then transitioned to oral. She had 30 min bout of possible atrial flutter last evening. Converted to NSR with resuming IV amiodarone bolus/gtt. She has also been getting oral amiodarone. Given her worsening fluid status, will stop IV amiodarone. Continue oral amiodarone 400 mg BID for now Her BP has improved since admission. Try adding oral metoprolol succinate 12.5 mg daily to aid with arrhythmias. Eliquis was resumed yesterday and IV heparin stopped, and anticoagulation should be continued. On prior echo/GEORGETTE earlier this admission she had Three separate lesions present that likely represent endocarditis: mitral valve, aortic valve and left atrial appendage given clinical context would recommend continuing to treating with IV antibiotics for 6 weeks. ID following as well. Palliative care also consulted this admission given multiple comorbidities. Would not be a surgical candidate for intervention if needed. Since admission she is up possible 13 kg and significantly volume overloaded on exam. Oral furosemide was resumed yesterday and down 1 kg today. Low threshold to initiate IV lasix, but given her recent issues with hypotension and addition of metoprolol this morning, will monitor BP, and consider dose this afternoon. She already received morning oral furosemide. Limit IV fluids and IV meds. Monitor I+O's. will follow. case discussed with Dr. Sierra Admission and Anticipated Discharge Date Admission Date: May 18, 2022 Supervising Physician Co-Signing Physician Notes I have reviewed the advance practitioner documentation and agree. I saw and evaluated the patient on the date of service referenced in the note and have performed the following medically appropriate history and or exam: The patient can continue with amiodarone for control of her atrial arrhythmias. She unfortunately, is volume overloaded and her weight is up from admission. She will need to be diuresed and agree with limiting p.o. fluids as well as IV medications. Subjective Patient very complex 66 year old female admitted for sepsis, stroke and found to have endocarditis as well. Cardiology was initially following and Conservative therapies recommended with IV antibiotics. On admission she was also significant hypotensive and all cardiac meds, including antiarrhythmics were stopped (sotalol and diltiazem). She then developed recurrent atrial flutter 2:1 vs SVT and started on amiodarone last week. Last night she had recurrent episode of probable atrial flutter RVR lasting approx 30 minutes. Apparently she had no symptoms. Overnight hospitalist restarted IV amiodarone in addition to her oral amiodarone. She converted back to NSR. Currently NSR in the 80's. Patient reports feeling "ok". Unable to provide significant history due to stroke and mental status. Voices no concerns this morning. No chest pain or SOB. She is significnatly edematous. Weight reviewed and she is up approx 13 kg since admission. Oral furosemide was resumed yesterday. Review of Systems Review of Systems: Unobtainable due to cognitive status Physical Exam Constitutional: WD/WN, vitals as above + obese; no acute distress Neck: + thick neck Respiratory: no respiratory distress Auscultation: + diminished lung sounds and + rales Cardiovascular: Rate/Rhythm: regular rate and regular rhythm Heart Sounds: no murmur (distant heart sounds) Extremities: + edema (2+ LE edema to thighs) Results & Data ([facility]) Vital Signs (Past 12 Hours) Vital Signs Temp Pulse Pulse Pulse Resp BP Pulse Ox 05/27/22 08:00 90 05/27/22 07:36 102 H 16 117/75 94 05/27/22 02:46 36.9 C 99 H 20 105/67 94 05/27/22 00:55 36.9 C 119 H 96/62 L 92 05/26/22 23:24 36.7 C 120 H 20 109/69 94 05/26/22 22:50 O2 Del Method 05/27/22 08:00 05/27/22 07:36 Room Air 05/27/22 02:46 Room Air 05/27/22 00:55 Room Air 05/26/22 23:24 Room Air 05/26/22 22:50 Room Air Laboratory Results Cardiac Enzymes 05/27/22 Range/Units 01:08 AST 16 (13-39) U/L Coagulation 05/26/22 05/27/22 Range/Units 12:07 01:08 APTT 63.4 H* 34.2 H (21.0-31.0) Seconds CBC 05/27/22 Range/Units 01:08 WBC 21.61 H (4.8-10.8) K/ul RBC 4.07 L (4.20-5.40) M/uL Hgb 11.1 L (12.0-16.0) g/dl Hct 31.7 L (37.0-47.0) % Plt Count 253 (130-400) K/uL Neut # (Auto) 15.11 H (1.40-6.50) K/uL Lymph # (Auto) 2.99 (1.2-3.4) K/uL [place] # (Auto) 2.54 H (0.11-0.59) K/uL Eos # (Auto) 0.12 (0-0.50) K/uL Baso # (Auto) 0.05 (0-0.2) K/uL Comprehensive Metabolic Panel 05/27/22 Range/Units 01:08 Sodium 134 L (136-145) mmol/L Potassium 3.5 D (3.5-5.1) mmol/L Chloride 104 (98-107) mmol/L Carbon Dioxide 23 (21-32) mmol/L BUN 13 (6-23) mg/dl Creatinine 0.69 (0.6-1.2) mg/dl Glucose 115 H (70-99(Fasting)) mg/dl Calcium 7.6 L (8.5-10.1) mg/dl AST 16 (13-39) U/L ALT 11 (7-52) U/L Alkaline Phosphatase 65 (34-104) U/L Total Protein 4.5 L (6.0-8.3) gm/dl Albumin 2.1 L (3.4-5.0) gm/dl Intake and Output 05/26/22 05/27/22 05/27/22 22:59 06:59 14:59 Intake Total 341.4 / 841.4 400 / 841.4 247.038 / 247.038 Output Total 150 / 1175 150 / 1175 Balance 191.4 / -333.6 250 / -333.6 247.038 / 247.038 Intake: IV 341.4 / 841.4 400 / 841.4 247.038 / 247.038 Amiodarone / D5w 150 mg In 100 100 / 100 ml @ 600 mls/hr IV NOW STA Rx#: [id number] Amiodarone / D5w 360 mg In 200 247.038 / 247.038 ml @ 0.5 MG/MIN 16.667 mls/hr IV .Q12H [facility] Rx#:[id number] Heparin Sodium/Dextrose 25,000 241.4 / 241.4 units In 500 ml @ 850 UNITS/HR 17 mls/hr IV .Q24H [facility] Rx#: [id number] Magnesium Sulfate / D5w 1 gm In 200 / 200 100 ml @ 50 mls/hr IV Q2H [facility] Rx#:[id number] metroNIDAZOLE 500 mg In 100 ml 100 / 300 100 / 300 @ 100 mls/hr IV Q8H [facility] Rx#: [id number] Oral 0 / 0 Output: Urine Amount (Catheter) 150 / 775 150 / 775 [place]/Indwelling 150 / 775 150 / 775 Other: Other Intake Source Sips Weight 103 kg Weight Measurement Method Built in [facility] Diagnostic Findings Telemetry reviewed - NSR with episode of non sustained atrial flutter 2:1 vs SVT last evening lasting approx 30 minutes. Currently NSR in the 80s Medications Administered Current Inpatient Medications Amiodarone HCl (Amiodarone 200 Mg Tab) 400 mg PO BID [facility] Stop: 06/22/22 20:59 Last Admin: 05/27/22 08:31 Dose: 400 mg Apixaban (Apixaban 5 Mg Tablet) 5 mg PO BID [facility] Stop: 06/25/22 20:59 Last Admin: 05/26/22 22:13 Dose: 5 mg Dextrose (Dextrose 50% 50 Ml Syringe) 25 - 50 ml IV UD PRN; Protocol PRN Reason: Hypoglycemia Protocol Stop: 06/17/22 23:35 Furosemide (Furosemide 40 Mg Tab) 40 mg PO DAILY [facility] Stop: 06/25/22 08:59 Last Admin: 05/27/22 08:31 Dose: 40 mg Glucagon (Glucagon For Inj 1 Mg Vial) 1 mg SQ UD PRN; Protocol PRN Reason: Hypoglycemia Protocol Stop: 06/17/22 23:35 Glucose (Glucose 10 Tab/Tube) 4 - 8 tab PO UD PRN; Protocol PRN Reason: Hypoglycemia Treatment Stop: 06/17/22 23:35 Glucose (Glucose 40% Gel 15 Gm Tube) 15 - 30 gm PO UD PRN; Protocol PRN Reason: Hypoglycemia Protocol Stop: 06/17/22 23:35 Metronidazole (Flagyl) 500 mg in 100 mls @ 100 mls/hr IV Q8H [facility] Stop: 05/29/22 10:59 Last Infusion: 05/27/22 04:44 Dose: Infused Daptomycin 700 mg/ Syringe 14 mls @ 7 mls/min IV Q24H [facility]; Protocol Stop: 07/05/22 11:59 Last Admin: 05/26/22 11:34 Dose: 7 mls/min Insulin Aspart (Insulin Aspart Per Unit) 0 units SC ACHS [facility] Stop: 06/18/22 22:59 Last Admin: 05/27/22 09:15 Dose: Not Given Insulin Glargine (Lantus Per Unit Charge) 8 units SQ HS [facility] Stop: 06/23/22 20:59 Last Admin: 05/26/22 21:16 Dose: Not Given Magnesium Oxide (Magnesium Oxide 400 Mg Tab) 400 mg PO BID [facility] Stop: 06/26/22 08:59 Metoprolol Succinate (Metoprolol Succ 25mg Ext Rel Tab) 12.5 mg PO QAM [facility] Stop: 06/26/22 09:59 Midodrine (Midodrine Hcl 2.5 Mg Tab) 5 mg PO DAILY@0700 [facility] Stop: 06/26/22 02:24 Last Admin: 05/27/22 03:41 Dose: 5 mg Miscellaneous (Carbohydrates For Hypoglycemia ) 15 - 30 gm PO UD PRN PRN Reason: Hypoglycemia Protocol Stop: 06/17/22 23:35 Miscellaneous Information (Pharmacy Glycemic Mgmt Consult) 1 each N/A UD PRN PRN Reason: Consult Stop: 06/18/22 22:55 Miscellaneous Information (Pharmacist Discharge Med Rec Consult) 1 each N/A UD PRN PRN Reason: Consult Stop: 06/22/22 12:44 Multivitamins/Minerals (Multi Vit W/Minerals Liquid 15 Ml Udp) 15 ml GT QAM [facility] Stop: 06/21/22 08:59 Last Admin: 05/27/22 08:31 Dose: 15 ml Pantoprazole Sodium (Pantoprazole 40 Mg Tab) 40 mg PO BID [facility] Stop: 06/24/22 20:59 Last Admin: 05/27/22 08:31 Dose: 40 mg Potassium Chloride (Potassium Chloride Pwd 20 Meq Pack) 20 meq PO BID [facility] Stop: 06/26/22 08:59 Last Admin: 05/27/22 08:32 Dose: 20 meq Raspberry (Raspberry Syrup 5 Ml Udp) 5 ml PO Q6 [facility] Stop: 05/30/22 11:59 Last Admin: 05/27/22 05:56 Dose: 5 ml Vancomycin HCl (Vancomycin Hcl 500 Mg/10 Ml Soln) 500 mg PO Q6 [facility] Stop: 05/30/22 11:59 Last Admin: 05/27/22 05:56 Dose: 500 mg
[2022-05-27] MEDS: METOPROLOL SUCC 25MG EXT REL TAB PO SCH (11:09)
[2022-05-27 11:21] LABS: Hematocrit (blood only) 34.3 % (37.0-47.0); Hemoglobin 11.9 g/dl (12.0-16.0)
[2022-05-27] MEDS ORDERED: LANTUS PER UNIT CHARGE SQ ONE (12:15)
[2022-05-27] MEDS: DAPTOmycin 700 MG in SYRINGE 0 ML IV SCH (12:26)
[2022-05-27] MEDS: MAGNESIUM OXIDE 400 MG TAB PO SCH ×2 (12:27→21:14)
--- NOTE | 2022-05-27 13:59 | Palliative Care Progress Note ---
Date of Service May 27, 2022 Assessment & Plan (1) Palliative care encounter: Plan: I talked with Lula about our previous discussions regarding goals of care. She recalls telling me that she would not want intubation or resuscitation if needed. I also talked with her about my conversation with her sister, Yelitza, regarding her living will. We reviewed that living will indicates that she would not want aggressive interventions if she were seriously ill. I specifically talked with her about dialysis and return to the hospital if she were very ill. She tells me that the answer to both questions is "no". She says that she is a private person and would prefer to remain at home and not return to the hospital for additional interventions. She realizes that this may lead to her dying time and she tells me that she is not worried or afraid of her dying time. She would prefer that she have better quality of time rather than prolonged time. Admission and Anticipated Discharge Date Admission Date: May 18, 2022 Subjective Awake. No complaints of pain or discomfort. Had episode of SVT during the night. Review of Systems Review of Systems: ESAS Pain 0/3 Dyspnea 0/3 Nausea0/3 Drowsiness 0/3 Anxiety 0/3 Physical Exam Constitutional: no acute distress ENMT: Mouth: + dry oral mucous membranes Respiratory: normal respiratory effort; no labored breathing Cardiovascular: Extremities: + edema Skin: warm and dry Neurologic: Speech / Cognition: normal cognition Results & Data ([facility]) Vital Signs (Past 12 Hours) Vital Signs Temp Pulse Pulse Pulse Resp BP BP 05/27/22 11:33 89 18 124/67 05/27/22 09:00 05/27/22 08:00 90 05/27/22 07:36 102 H 16 117/75 05/27/22 02:46 98.4 F 99 H 20 105/67 Pulse Ox O2 Del Method 05/27/22 11:33 99 Room Air 05/27/22 09:00 Room Air 05/27/22 08:00 05/27/22 07:36 94 Room Air 05/27/22 02:46 94 Room Air PG Care Time/CCT Total # of Minutes Spent Total Time Spent with Patient: Total time spent is greater than 50% in coordination of care (as documented) at patient's floor/unit and/or counseling patient: Coding Level of Care Code 43550 SUB INP/OBS CARE 04/24MIN Diagnoses Palliative care encounter Z51.5
[2022-05-27] MEDS ORDERED: FUROSEMIDE INJ 20 MG/2 ML VIAL IV ONE (15:18)
--- NOTE | 2022-05-27 15:19 | Hospitalist Progress Note ---
Date of Service May 27, 2022 Assessment & Plan (1) Septic shock: (2) GI bleed: (3) Respiratory failure with hypoxia: (4) MARIA ELENA (acute kidney injury): (5) Hyponatremia: (6) DM2 (diabetes mellitus, type 2): (7) HLD (hyperlipidemia): (8) HTN (hypertension): (9) H/O: CVA (cerebrovascular accident): (10) Neurogenic bladder: (11) Paroxysmal atrial fibrillation: (12) Depression with anxiety: Plan 66-year-old lady, resident at [facility] with PMH of CVA with residual right- sided weakness, chronic indwelling Milan catheter for neurogenic bladder, morbid obesity, HTN, GI bleeds, DM2, chronic hyponatremia, PAF on Eliquis was brought to the ED 05/18 from [facility] for concerns of encephalopathy and reported bloody bowel movements. She was noted to be obtunded, mildly hypothermic and with dried blood in oral cavity at ED and hence was intubated. She reportedly had another bowel movement in the ED that was dark maroon without clots. She is being managed for the following: C. difficile colitis Norovirus Ac Gastroenteritis Gram-positive bacteremia: 05/19 TT-echo neg for vegetation, repeat bl cx 05/20 - NG 5 days. Septic shock likely secondary to above Likely metabolic encephalopathy: resolving Concern of endocarditis: ID on board. Ischemic Stroke: allergic to aspirinn, rosuvastatin on hold d/t being on Dapto, GLP-1 agonist vs SGLT 2 inhibitor (defer to PCP office once pt out of acute illness). Patient presents with altered mentation and was intubated due to AMS/dried blood in oral cavity Due to persistent hypotension, started on pressors at admission. Milan catheter was changed in the ED. Admitting labs with WBC of 32.5 K, hemoglobin of 11.8, AG metabolic acidosis in ABG. Pro-Maxim and LA elevated. Respiratory BioFire panel was negative. Admitting CXR with mild pulmonary vascular congestion. Admitting CTAP and CT chest: Nonspecific proctocolitis extending from the mid transverse colon distally. Small to moderate right pleural effusion with mild right basilar atelectasis. Admitting CT head with no new acute findings. 05/21 MRI Brain: Multiple small acute infarcts (b/l occipital lobes/left basal ganglia/other areas), likely embolic etiology. No hge or mass effect. 05/21 EEG: No epileptiform discharges or electrographic seizures were seen. 05/22 GEORGETTE: Mass present in left atrial appendage. Multiple focal, nonmobile lesions present on both mitral leaflets s/o calcification vs vegetation. 05/18 blood culture: CONS not lugdunensis 05/20 Bl Cx: NG5D Currently on midodrine, vancomycin p.o. 05/25 Procal wnl. Taper midodrine as able. --- daily today. ID on board: Vanco iv changed to dapto 05/24 --- 6 weeks treatment (through 07/01/22); c/w vanc po for C diff colitis; can dc iv metron. 05/24 cpk 22, labs weekly while on iv antibiotic, will get PICC line in AM. Dc metronidazole. GI bleed: Had dark-colored stool in the ED, admitting hemoglobin of 11.8, on Protonix po bid, hemoglobin stable around 11.5, labs in AM. c/w eliquis. MARIA ELENA: Admitting creatinine of 4.06, secondary to septic shock, resolved. Type II NSTEMI: Troponin elevated likely secondary to acute illness, EKG and echo done/reviewed. SVT: cardio on board, on amiodarone and metoprolol. DC sotalol per d/w cardio today. A-fib on Eliquis: c/w home eliquis, pt on amio and metoprolol per cardio Electrolyte abnormalities: Including hyponatremia, MARIA ELENA, metabolic acidosis. improving. Sacral wound, stage II: not sure if POA, pt chronically on bed per [facility]. WOCN. DMII: History of, sliding scale. CVA, Neurogenic bladder and anxiety: -holding oral medications -urinary catheter changed in the ER DVT PPx: Eliquis Code Status: DNR/DNI Dispo: PICC line in AM, pending diuresis, expect dc in 2-3 days. Will need adjunct faculty for medical terminology Dapto (see above). 05/24: Received a call back from the nurse at [facility] who also took care of Lula. The RN states that Lula was not on any antibiotic in the last 2 months, she stays at the bed 100% of the time, weak on right side, oriented and completely appropriate at baseline, also inquired about allergies listed to atorvastatin and aspirin. On both of these drugs only cutaneous reaction is lis jacinto as an allergy on their side and they know no more than this about her allergies to aspirin and statin. Once the patient recovers better, will try to get more history from the patient herself. Admission and Anticipated Discharge Date Admission Date: May 18, 2022 Subjective Patient is seen and examined at bedside as a follow-up of septic shock, GI bleed, C. difficile, MARIA ELENA, electrolyte abnormalities. After admission found to have ischemic stroke and concern for infective endocarditis. Patient was lying in bed, on RA, awake, alert, oriented, per RN /w poor appetite. No nausea or vomiting. Went into SVT overnight, was put back on amio drip. d/w cards in AM for re-eval; plan to c/w amio 400 mg bid; no sotalol going forward, metoprolol has been added. She denies pain. Denies headache/dizziness/chest pain/other ROS. Reports being weak and tired. is swollen, will make stricter fluid restriction, increase protein content in diet but patient w/ poor appetite. Physical Exam Physical Exam: Awake , alert, oriented x 3, answers appropriately, speech clear. Appears better Urinary catheter with yellow urine noted Heart: RRR, no murmur Lower extremity: No erythema, 2/3+ pitting edema Respiratory: on RA, clear to auscultation Neurologic: awake and alert, follows commands, clear speech. Sacral stage II ulcer. does not look infected. Results & Data Results & Data ([facility]) Vital Signs (Past 12 Hours) Vital Signs Pulse Pulse Pulse Resp BP BP Pulse Ox 05/27/22 11:33 89 18 124/67 99 05/27/22 09:00 05/27/22 08:00 90 05/27/22 07:36 102 H 16 117/75 94 O2 Del Method 05/27/22 11:33 Room Air 05/27/22 09:00 Room Air 05/27/22 08:00 05/27/22 07:36 Room Air
[2022-05-27] MEDS: APIXABAN 5 MG TABLET PO SCH (21:14)
[2022-05-27] MEDS: MIRTAZAPINE TAB 15 MG TAB PO SCH (21:15)
[2022-05-28] MEDS: RASPBERRY SYRUP 5 ML UDP PO SCH ×5 (00:39→23:50)
[2022-05-28] MEDS: VANCOMYCIN HCL 500 MG/10 ML SOLN PO SCH ×5 (00:39→23:50)
[2022-05-28 06:16] LABS: Hematocrit (blood only) 30.7 % (37.0-47.0); Hemoglobin 11.1 g/dl (12.0-16.0); Mean Corpuscular Hemoglobin 27.6 pg (25.0-34.0); Mean Corpuscular Hgb Conc 36.2 g/dL (32.0-36.0); Mean Corpuscular Volume 76.4 fL (80.0-100.0); Mean Platelet Volume 9.7 fL (9.4-12.4); Nucleated RBC # (auto) 0.04 K/uL (0-0.12); Nucleated RBC % (auto) 0.2 %; Platelet Count 344 K/uL (130-400); RDW Coefficient of Variation 16.6 % (11.5-14.5); RDW Standard Deviation 41.2 fL (36.4-46.3); Red Blood Count 4.02 M/uL (4.20-5.40); White Blood Count 21.32 K/ul (4.8-10.8)
[2022-05-28 06:22] LABS: Calcium 7.5 mg/dl (8.5-10.1); Creatinine Clr Calc Pharmacy 80.8 ml/min; Est GFR (African American) 94.9 ml/min; Est GFR (Non-African American) 81.9 ml/min; Magnesium 1.6 mg/dl (1.7-2.4); Phosphorus 2.5 mg/dl (2.5-4.9); Potassium 3.5 mmol/L (3.5-5.1)
[2022-05-28] MEDS: MIDODRINE HCL 2.5 MG TAB PO SCH (08:28)
[2022-05-28] MEDS: MAGNESIUM SULFATE / D5W 1 GM/100 ML BAG IV SCH ×2 (08:29→10:39)
[2022-05-28] MEDS: PANTOprazole 40 MG TAB PO SCH ×2 (08:29→19:50)
[2022-05-28] MEDS: POTASSIUM CHLORIDE PWD 20 MEQ PACK PO SCH ×3 (08:29→19:49)
[2022-05-28] MEDS: AMIODARONE 200 MG TAB PO SCH ×2 (08:30→19:47)
[2022-05-28] MEDS: METOPROLOL SUCC 25MG EXT REL TAB PO SCH ×2 (08:30→19:50)
[2022-05-28] MEDS: APIXABAN 5 MG TABLET PO SCH ×2 (08:30→19:47)
[2022-05-28] MEDS: FUROSEMIDE 40 MG TAB PO SCH (08:31)
[2022-05-28] MEDS: MULTI VIT W/MINERALS LIQUID 15 ML UDP GT SCH (08:34)
[2022-05-28] MEDS ORDERED: FUROSEMIDE 40 MG/4 ML VIAL IV ONE (08:39)
[2022-05-28] MEDS: INSULIN ASPART PER UNIT SC SCH ×4 (08:55→20:44)
[2022-05-28] MEDS: MULTIVITAMIN TAB PO SCH (09:35)
[2022-05-28] MEDS: MAGNESIUM OXIDE 400 MG TAB PO SCH ×2 (09:35→19:50)
[2022-05-28] MEDS: LANTUS PER UNIT CHARGE SQ SCH (09:35)
--- NOTE | 2022-05-28 10:13 | Cardiology Progress Note ---
Date of Service May 28, 2022 Assessment & Plan (1) Ischemic stroke: (2) Palliative care encounter: (3) Severe sepsis with septic shock: (4) Altered mental status: (5) Acute respiratory failure with hypoxia: (6) Acute renal failure: (7) High anion gap metabolic acidosis: (8) Septic shock: (9) H/O: CVA (cerebrovascular accident): (10) HTN (hypertension): (11) Paroxysmal atrial fibrillation: (12) Endocarditis: Plan Medically complex 66 year old admitted for sepsis, bacteremia, hypotension, CVA, and complicated by GI bleed. She required several days of mechanical ventilation with pressors, but now off therapy and extubated. Cardio was asked to evaluate again for recurrent arrhythmias overnight. Patient has a history of PAF, was previously on sotalol and diltiazem as outpatient. These were stopped on admission with sepsis, hypotension. Due to recurrent atrial arrhythmias, IV amiodarone was initiated during hospitalization and then transitioned to oral amiodarone. Yesterday metoprolol 12.5 mg daily was added. she is tolerating. Had recurrent arrhythmias last night. Will increase metoprolol to 12.5 mg BID. Doses limited due to lower BP. Continue oral amiodarone 400 mg BID for now Continue Eliquis for stroke prophylaxis. On prior echo/GEORGETTE earlier this admission, he had Three separate lesions present that likely represent endocarditis: mitral valve, aortic valve and left atrial appendage given clinical context would recommend continuing to treating with IV antibiotics for 6 weeks. ID following as well. Palliative care also consulted this admission given multiple comorbidities. Would not be a surgical candidate for intervention if needed. Since admission she is up 13 kg likely due to aggressive fluid resuscitation in the ICU. Now has significant volume overload on exam. Oral furosemide was resumed but no significant improvement. IV furosemide 40 mg ordered this morning, but patient had already received oral furosemide dose. Would attempt to give IV furosemide this afternoon as long as he is not hypotensive to aid with fluid status Monitor I+O's. Unable to do standing scale, but monitor bed weights. Overall, poor prognosis. Will need SNF on discharge. Continue to follow with palliative care Would consider hospice as well. Case discussed with Dr. Sierra Admission and Anticipated Discharge Date Admission Date: May 18, 2022 Supervising Physician Co-Signing Physician Notes I have reviewed the advance practitioner documentation and agree. I saw and evaluated the patient on the date of service referenced in the note and have performed a medically appropriate history and or exam. Nothing additional to add at this time. Subjective Patient resting in bed comfortably. Able to answer questions appropriately. Denies complaints. still with diffuse edema/anasarca Review of Systems Review of Systems: All systems reviewed & are unremarkable except as noted in HPI & below Physical Exam 2 Constitutional: WD/WN, vitals as above + obese; no acute distress Neck: + thick neck Respiratory: no respiratory distress Auscultation: + diminished lung sounds and + rales Cardiovascular: Rate/Rhythm: regular rate and regular rhythm Heart Sounds: no murmur (distant heart sounds) Extremities: + edema (2+ LE edema to thighs) Results & Data ([facility]) Vital Signs (Past 12 Hours) Vital Signs Temp Pulse Pulse Resp BP Pulse Ox O2 Del Method 05/28/22 08:00 Room Air 05/28/22 08:00 112 H 05/28/22 07:26 36.9 C 97 H 20 114/74 95 Room Air 05/27/22 22:37 102 H 05/28/22 03:00 36.6 C 103 H 18 111/71 93 Room Air 05/27/22 23:00 36.7 C 89 18 133/81 96 Room Air Laboratory Results CBC 05/27/22 05/28/22 Range/Units 10:48 05:33 WBC 21.32 H (4.8-10.8) K/ul RBC 4.02 L (4.20-5.40) M/uL Hgb 11.9 L 11.1 L (12.0-16.0) g/dl Hct 34.3 L 30.7 L (37.0-47.0) % Plt Count 344 (130-400) K/uL Comprehensive Metabolic Panel 05/28/22 Range/Units 05:33 Sodium 134 L (136-145) mmol/L Potassium 3.5 (3.5-5.1) mmol/L Chloride 104 (98-107) mmol/L Carbon Dioxide 24 (21-32) mmol/L BUN 15 (6-23) mg/dl Creatinine 0.75 (0.6-1.2) mg/dl Glucose 117 H (70-99(Fasting)) mg/dl Calcium 7.5 L (8.5-10.1) mg/dl Intake and Output 05/27/22 05/28/22 05/28/22 22:59 06:59 14:59 Output Total 450 / 1350 200 / 1350 Balance -450 / -702.962 -200 / -702.962 Output: Urine Amount (Catheter) 450 / 1350 200 / 1350 Milan/Indwelling 450 / 1350 200 / 1350 Other: Weight 108.7 kg 103.3 kg Weight Measurement Method Built in [facility] Built in [facility] Patient Weight 05/29/22 06:59 Weight 103.3 kg Diagnostic Findings Telemetry reviewed: Currently NSR in the 90's. She had short run of PAF last evening. No symptoms. Medications Administered Current Inpatient Medications Amiodarone HCl (Amiodarone 200 Mg Tab) 400 mg PO BID TIERA Stop: 06/22/22 20:59 Last Admin: 05/28/22 08:30 Dose: 400 mg Apixaban (Apixaban 5 Mg Tablet) 5 mg PO BID TIERA Stop: 06/25/22 20:59 Last Admin: 05/28/22 08:30 Dose: 5 mg Dextrose (Dextrose 50% 50 Ml Syringe) 25 - 50 ml IV UD PRN; Protocol PRN Reason: Hypoglycemia Protocol Stop: 06/17/22 23:35 Furosemide (Furosemide 40 Mg Tab) 40 mg PO DAILY TIERA Stop: 06/25/22 08:59 Last Admin: 05/28/22 08:31 Dose: 40 mg Glucagon (Glucagon For Inj 1 Mg Vial) 1 mg SQ UD PRN; Protocol PRN Reason: Hypoglycemia Protocol Stop: 06/17/22 23:35 Glucose (Glucose 10 Tab/Tube) 4 - 8 tab PO UD PRN; Protocol PRN Reason: Hypoglycemia Treatment Stop: 06/17/22 23:35 Glucose (Glucose 40% Gel 15 Gm Tube) 15 - 30 gm PO UD PRN; Protocol PRN Reason: Hypoglycemia Protocol Stop: 06/17/22 23:35 Daptomycin 700 mg/ Syringe 14 mls @ 7 mls/min IV Q24H TIERA; Protocol Stop: 07/05/22 11:59 Last Admin: 05/27/22 12:26 Dose: 7 mls/min Magnesium Sulfate/Dextrose (Magnesium Sulfate / D5w) 1 gm in 100 mls @ 50 mls/hr IV Q2H TIERA Stop: 05/28/22 11:44 Last Admin: 05/28/22 08:29 Dose: 50 mls/hr Insulin Aspart (Insulin Aspart Per Unit) 0 units SC ACHS TIERA Stop: 06/18/22 22:59 Last Admin: 05/28/22 08:55 Dose: Not Given Insulin Glargine (Lantus Per Unit Charge) 8 units SQ DAILY TIERA Stop: 06/27/22 08:59 Last Admin: 05/28/22 09:35 Dose: 8 units Magnesium Oxide (Magnesium Oxide 400 Mg Tab) 400 mg PO BID TIERA Stop: 06/26/22 08:59 Last Admin: 05/28/22 09:35 Dose: 400 mg Metoprolol Succinate (Metoprolol Succ 25mg Ext Rel Tab) 12.5 mg PO BID [facility] Stop: 06/27/22 20:59 Midodrine (Midodrine Hcl 2.5 Mg Tab) 5 mg PO DAILY@0700 TIERA Stop: 06/26/22 02:24 Last Admin: 05/28/22 08:28 Dose: 5 mg Mirtazapine (Mirtazapine Tab 15 Mg Tab) 7.5 mg PO HS TIERA Stop: 06/26/22 20:59 Last Admin: 05/27/22 21:15 Dose: 7.5 mg Miscellaneous (Carbohydrates For Hypoglycemia ) 15 - 30 gm PO UD PRN PRN Reason: Hypoglycemia Protocol Stop: 06/17/22 23:35 Miscellaneous Information (Pharmacy Glycemic Mgmt Consult) 1 each N/A UD PRN PRN Reason: Consult Stop: 06/18/22 22:55 Miscellaneous Information (Pharmacist Discharge Med Rec Consult) 1 each N/A UD PRN PRN Reason: Consult Stop: 06/22/22 12:44 Multivitamins (Multivitamin Tab) 1 tab PO QAM TIERA Stop: 06/27/22 08:59 Last Admin: 05/28/22 09:35 Dose: 1 tab Pantoprazole Sodium (Pantoprazole 40 Mg Tab) 40 mg PO BID TIERA Stop: 06/24/22 20:59 Last Admin: 05/28/22 08:29 Dose: 40 mg Potassium Chloride (Potassium Chloride Pwd 20 Meq Pack) 20 meq PO BID TIERA Stop: 06/26/22 08:59 Last Admin: 05/28/22 08:45 Dose: Not Given Raspberry (Raspberry Syrup 5 Ml Udp) 5 ml PO Q6 TIERA Stop: 05/30/22 11:59 Last Admin: 05/28/22 06:28 Dose: 5 ml Vancomycin HCl (Vancomycin Hcl 500 Mg/10 Ml Soln) 500 mg PO Q6 [facility] Stop: 05/30/22 11:59 Last Admin: 05/28/22 06:28 Dose: 500 mg
--- NOTE | 2022-05-28 10:53 | Palliative Care Progress Note ---
Date of Service May 28, 2022 Assessment & Plan (1) Palliative care encounter: Plan: Extensive conversation with Lula's sister, Yelitza, after discussing goals of care with Lula. Reviewed Lula's wish to forgo aggressive treatment and focus on comfort and quality time. We also discussed that poor appetite and withdrawing from activities is not unusual as people approach their dying time. It is also a common sign of depression and Yelitza is concerned that Lula is depressed. She tells me that Lula has a history of depression in the past and sometimes tells Yelitza that she is "in a dark place". Lula denies feeling depressed or in a dark place when asked. Having reviewed her goals of care, Lula does want to continue current treatment but would not want to escalate care. When she is stable for discharge to [facility], her hope is to remain there without return to the hospital. Yelitza is aware of this. She tells me that she wants to discuss this with Lula in person at another time and wants to continue mirtazapine for depression in the hope that Lula will have a better appetite and be more interactive. Admission and Anticipated Discharge Date Admission Date: May 18, 2022 Subjective Lula has poor appetite and has been refusing physical and occupational therapy. She denies pain, dyspnea or nausea. Review of Systems Review of Systems: ESAS Pain 0/3 Dyspnea 0/3 Nausea0/3 Drowsiness 0/3 Anxiety 0/3 Physical Exam Constitutional: no acute distress Respiratory: normal respiratory effort; no labored breathing Cardiovascular: Rate/Rhythm: regular rate and regular rhythm Gastrointestinal (Abdomen): obese Skin: warm and dry Psychiatric: denies depression Results & Data ([facility]) Vital Signs (Past 12 Hours) Vital Signs Temp Pulse Pulse Resp BP Pulse Ox O2 Del Method 05/28/22 08:00 Room Air 05/28/22 08:00 112 H 05/28/22 07:26 98.4 F 97 H 20 114/74 95 Room Air 05/28/22 03:00 97.9 F 103 H 18 111/71 93 Room Air 05/27/22 23:00 98.1 F 89 18 133/81 96 Room Air PG Care Time/CCT Total # of Minutes Spent Total Time Spent: 47 Total Time Spent with Patient: Total time spent is greater than 50% in coordination of care (as documented) at patient's floor/unit and/or counseling patient: [id number] goals of care, patient and family education and support Coding Level of Care Code 87194 SUB INP/OBS CARE 2MIN Diagnoses Palliative care encounter Z51.5
[2022-05-28] MEDS: DAPTOmycin 700 MG in SYRINGE 0 ML IV SCH (11:54)
--- NOTE | 2022-05-28 16:14 | Hospitalist Progress Note ---
Date of Service May 28, 2022 Assessment & Plan (1) Septic shock: (2) GI bleed: (3) Respiratory failure with hypoxia: (4) MARIA ELENA (acute kidney injury): (5) Hyponatremia: (6) DM2 (diabetes mellitus, type 2): (7) HLD (hyperlipidemia): (8) HTN (hypertension): (9) H/O: CVA (cerebrovascular accident): (10) Neurogenic bladder: (11) Paroxysmal atrial fibrillation: (12) Depression with anxiety: Plan 66-year-old lady, resident at [facility] with PMH of CVA with residual right- sided weakness, chronic indwelling Milan catheter for neurogenic bladder, morbid obesity, HTN, GI bleeds, DM2, chronic hyponatremia, PAF on Eliquis was brought to the ED 05/18 from [facility] for concerns of encephalopathy and reported bloody bowel movements. She was noted to be obtunded, mildly hypothermic and with dried blood in oral cavity at ED and hence was intubated. She reportedly had another bowel movement in the ED that was dark maroon without clots. She is being managed for the following: C. difficile colitis Norovirus Ac Gastroenteritis Gram-positive bacteremia: 05/19 TT-echo neg for vegetation, repeat bl cx 05/20 - NG 5 days. Septic shock likely secondary to above Likely metabolic encephalopathy: resolved Concern of endocarditis: ID on board. Ischemic Stroke: allergic to aspirin, rosuvastatin on hold d/t being on Dapto, GLP-1 agonist vs SGLT 2 inhibitor (defer to PCP office once pt out of acute illness). Patient presents with altered mentation and was intubated due to AMS/dried blood in oral cavity Due to persistent hypotension, started on pressors at admission. Milan catheter was changed in the ED. Admitting labs with WBC of 32.5 K, hemoglobin of 11.8, AG metabolic acidosis in ABG. Pro-Maxim and LA elevated. Respiratory BioFire panel was negative. Admitting CXR with mild pulmonary vascular congestion. Admitting CTAP and CT chest: Nonspecific proctocolitis extending from the mid transverse colon distally. Small to moderate right pleural effusion with mild right basilar atelectasis. Admitting CT head with no new acute findings. 05/21 MRI Brain: Multiple small acute infarcts (b/l occipital lobes/left basal ganglia/other areas), likely embolic etiology. No hge or mass effect. 05/21 EEG: No epileptiform discharges or electrographic seizures were seen. 05/22 GEORGETTE: Mass present in left atrial appendage. Multiple focal, nonmobile lesions present on both mitral leaflets s/o calcification vs vegetation. 05/18 blood culture: CONS not lugdunensis 05/20 Bl Cx: NG5D Currently on midodrine, vancomycin p.o. 05/25 Procal wnl. Taper midodrine as able. ID on board: Vanco iv changed to dapto 05/24 --- 6 weeks treatment (through 07/01/22); c/w vanc po for C diff colitis. 05/24 cpk 22, labs weekly while on iv antibiotic, PICC line consent obtained and ordered. GI bleed: Had dark-colored stool in the ED, admitting hemoglobin of 11.8, on Protonix po bid, hemoglobin stable around 11.5, labs in AM. c/w eliquis. per RN, ana alonzo. MARIA ELENA: Admitting creatinine of 4.06, secondary to septic shock, resolved. Type II NSTEMI: Troponin elevated likely secondary to acute illness, EKG and echo done/reviewed. SVT: cardio on board, on amiodarone and metoprolol. DC sotalol per d/w cardio today. Iatrogenic volume overload: being diuresed, cardio on board, iv lasix today, c/w FR 1500 ml. A-fib on Eliquis: c/w home eliquis, pt on amio and metoprolol per cardio Electrolyte abnormalities: Including hyponatremia, MARIA ELENA, metabolic acidosis. improving. Sacral wound, stage II: not sure if POA, pt chronically on bed per [facility]. WOCN. Poor appetite/h/o anxiety and depression: Remeron started. DMII: History of, sliding scale. CVA, Neurogenic bladder and anxiety: -home meds as able. -urinary catheter changed in the ER DVT PPx: Eliquis Code Status: DNR/DNI Dispo: PICC line consent obtained/order placed, pending diuresis, expect dc in 2-3 days. Will need rn long term care Dapto (see above). 05/24: Received a call back from the nurse at [facility] who also took care of Lula. The RN states that Lula was not on any antibiotic in the last 2 months, she stays at the bed 100% of the time, weak on right side, oriented and complete ly appropriate at baseline, also inquired about allergies listed to atorvastatin and aspirin. On both of these drugs only cutaneous reaction is listed as an allergy on their side and they know no more than this about her allergies to aspirin and statin. Once the patient recovers better, will try to get more history from the patient herself. Admission and Anticipated Discharge Date Admission Date: May 18, 2022 Subjective Patient is seen and examined at bedside as a follow-up of septic shock, GI bleed, C. difficile, MARIA ELENA, electrolyte abnormalities. After admission found to have ischemic stroke and concern for infective endocarditis. Patient was lying in bed, on RA, awake, alert, oriented, per RN /w poor appetite and has been refusing pt/ot. No nausea or vomiting. She denies pain. Denies headache/dizziness/chest pain/other ROS. Reports being weak and tired. discussed about need for PICC line for prolonged antibiotic, pt verbalized understanding and signed the consent. Physical Exam Physical Exam: Awake , alert, oriented x 3, answers appropriately, speech clear. Appears better Urinary catheter with yellow urine noted Heart: RRR, no murmur Lower extremity: No erythema, 2+ pitting edema Respiratory: on RA, clear to auscultation Neurologic: awake and alert, follows commands, clear speech. Sacral stage II ulcer. does not look infected. Results & Data Results & Data ([facility]) Vital Signs (Past 12 Hours) Vital Signs Temp Pulse Pulse Resp BP Pulse Ox O2 Del Method 05/28/22 15:00 93 H 05/28/22 15:02 36.4 C L 90 20 117/70 95 Room Air 05/28/22 12:14 36.7 C 05/28/22 11:00 36.9 C 110 H 20 106/70 95 Room Air 05/28/22 08:00 Room Air 05/28/22 08:00 112 H 05/28/22 07:26 36.9 C 97 H 20 114/74 95 Room Air
[2022-05-28] MEDS: MIRTAZAPINE TAB 15 MG TAB PO SCH (19:49)
[2022-05-29] MEDS: RASPBERRY SYRUP 5 ML UDP PO SCH ×4 (05:58→23:45)
[2022-05-29] MEDS: VANCOMYCIN HCL 500 MG/10 ML SOLN PO SCH ×4 (05:58→23:45)
[2022-05-29 06:41] LABS: Hematocrit (blood only) 31.7 % (37.0-47.0); Hemoglobin 11.1 g/dl (12.0-16.0); Mean Corpuscular Hemoglobin 27.4 pg (25.0-34.0); Mean Corpuscular Volume 78.3 fL (80.0-100.0); Mean Platelet Volume 9.9 fL (9.4-12.4); Nucleated RBC # (auto) 0.02 K/uL (0-0.12); Nucleated RBC % (auto) 0.1 %; Platelet Count 380 K/uL (130-400); RDW Coefficient of Variation 16.7 % (11.5-14.5); RDW Standard Deviation 42.2 fL (36.4-46.3); Red Blood Count 4.05 M/uL (4.20-5.40); White Blood Count 22.45 K/ul (4.8-10.8)
[2022-05-29 06:47] LABS: BUN Creatinine Ratio 21.3 (10-20); Calcium 7.9 mg/dl (8.5-10.1); Creatinine Clr Calc Pharmacy 80.8 ml/min; Est GFR (African American) 94.9 ml/min; Est GFR (Non-African American) 81.9 ml/min; Magnesium 1.9 mg/dl (1.7-2.4); Potassium 3.4 mmol/L (3.5-5.1)
[2022-05-29] MEDS: LANTUS PER UNIT CHARGE SQ SCH (08:14)
[2022-05-29] MEDS: PANTOprazole 40 MG TAB PO SCH ×2 (08:15→21:16)
[2022-05-29] MEDS: MAGNESIUM OXIDE 400 MG TAB PO SCH ×2 (08:15→21:46)
[2022-05-29] MEDS: APIXABAN 5 MG TABLET PO SCH ×2 (08:15→21:15)
[2022-05-29] MEDS: MIDODRINE HCL 2.5 MG TAB PO SCH (08:16)
[2022-05-29] MEDS: AMIODARONE 200 MG TAB PO SCH ×2 (08:16→21:15)
[2022-05-29] MEDS: METOPROLOL SUCC 25MG EXT REL TAB PO SCH ×2 (08:17→21:16)
[2022-05-29] MEDS: MULTIVITAMIN TAB PO SCH (08:17)
[2022-05-29] MEDS: POTASSIUM CHLORIDE PWD 20 MEQ PACK PO SCH ×2 (08:20→21:46)
[2022-05-29] MEDS ORDERED: POTASSIUM CHLORIDE CRTAB 20 MEQ TABCR PO ONE (08:26)
[2022-05-29] MEDS: INSULIN ASPART PER UNIT SC SCH ×4 (08:39→21:14)
[2022-05-29] MEDS: FUROSEMIDE 40 MG/4 ML VIAL IV SCH (08:46)
--- NOTE | 2022-05-29 10:33 | Cardiology Progress Note ---
Date of Service May 29, 2022 Assessment & Plan (1) Ischemic stroke: (2) Palliative care encounter: (3) Severe sepsis with septic shock: (4) Altered mental status: (5) Acute respiratory failure with hypoxia: (6) Acute renal failure: (7) High anion gap metabolic acidosis: (8) Septic shock: (9) H/O: CVA (cerebrovascular accident): (10) HTN (hypertension): (11) Paroxysmal atrial fibrillation: (12) Endocarditis: Plan Medically complex 66 year old admitted for sepsis, bacteremia, hypotension, CVA, and complicated by GI bleed. She required several days of mechanical ventilation with pressors, but now off therapy and extubated. Cardio was asked to evaluate again for recurrent atrial arrhythmias. Patient has a history of PAF, was previously on sotalol and diltiazem as outpatient. These were stopped on admission with sepsis, hypotension. Due to recurrent atrial arrhythmias, IV amiodarone was initiated during hospitalization and then transitioned to oral amiodarone. Metoprolol 12.5 mg BID was added. she is tolerating. Duration of atrial fib has improved. Continue oral amiodarone 400 mg BID for now Continue Eliquis for stroke prophylaxis. On prior echo/GEORGETTE earlier this admission, he had Three separate lesions present that likely represent endocarditis: mitral valve, aortic valve and left atrial appendage given clinical context would recommend continuing to treating with IV antibiotics for 6 weeks. ID following as well. Palliative care also consulted this admission given multiple comorbidities. Would not be a surgical candidate for intervention Since admission she is up 13 kg likely due to aggressive fluid resuscitation in the ICU. Now has significant volume overload on exam. Oral furosemide was resumed but no significant improvement. IV furosemide 40 mg ordered. Supplement potassium. Monitor I+O's. Unable to do standing scale, but monitor bed weights. Overall, poor prognosis. Will need SNF on discharge. Continue to follow with palliative care Would consider hospice as well as patient not eating per nursing staff. Case discussed with Dr. Sierra Admission and Anticipated Discharge Date Admission Date: May 18, 2022 Supervising Physician Co-Signing Physician Notes I have reviewed the advance practitioner documentation and agree. I saw and evaluated the patient on the date of service referenced in the note and have performed a medically appropriate history and or exam. Agree with the plan as outlined by Ms. Mack. Subjective Patient resting in bed. Voices no concerns. Per nursing staff, refusing alot of meds, refusing to eat and refusing PT. Review of Systems Review of Systems: All systems reviewed & are unremarkable except as noted in HPI & below Physical Exam Constitutional: WD/WN, vitals as above + obese; no acute distress Neck: + thick neck Respiratory: no respiratory distress Auscultation: + diminished lung sounds and + rales Cardiovascular: Rate/Rhythm: regular rate and regular rhythm Heart Sounds: no murmur (distant heart sounds) Extremities: + edema (2+ LE edema to thighs) Results & Data ([facility]) Vital Signs (Past 12 Hours) Vital Signs Temp Pulse Pulse Pulse Resp BP BP 05/29/22 08:52 84 05/29/22 08:08 37.1 C 73 17 100/69 05/29/22 07:30 05/29/22 03:44 36.7 C 86 16 131/77 05/28/22 22:58 37.1 C 99 H 20 115/73 05/28/22 22:57 94 H Pulse Ox O2 Del Method 05/29/22 08:52 05/29/22 08:08 90 Room Air 05/29/22 07:30 Room Air 05/29/22 03:44 95 Room Air 05/28/22 22:58 95 Room Air 05/28/22 22:57 Laboratory Results CBC 05/29/22 Range/Units 05:36 WBC 22.45 H (4.8-10.8) K/ul RBC 4.05 L (4.20-5.40) M/uL Hgb 11.1 L (12.0-16.0) g/dl Hct 31.7 L (37.0-47.0) % Plt Count 380 (130-400) K/uL Comprehensive Metabolic Panel 05/29/22 Range/Units 05:36 Sodium 134 L (136-145) mmol/L Potassium 3.4 L (3.5-5.1) mmol/L Chloride 104 (98-107) mmol/L Carbon Dioxide 24 (21-32) mmol/L BUN 16 (6-23) mg/dl Creatinine 0.75 (0.6-1.2) mg/dl Glucose 141 H (70-99(Fasting)) mg/dl Calcium 7.9 L (8.5-10.1) mg/dl Intake and Output 05/28/22 05/29/22 05/29/22 22:59 06:59 14:59 Intake Total 0 / 560 Output Total 250 / 1202 151 / 1202 Balance -250 / -642 -151 / -642 Intake: Oral 0 / 360 Output: Urine Amount (Catheter) 250 / 1200 150 / 1200 Milan/Indwelling 250 / 1200 150 / 1200 # Bowel Movements 1 / 2 Other: Other Intake Source Sips Weight 103 kg Weight Measurement Method Built in [facility] Diagnostic Findings Telemetry reviewed: NSR in the 70's currently. Overnight, nonsustained atrial flutter, resolved. Medications Administered Current Inpatient Medications Amiodarone HCl (Amiodarone 200 Mg Tab) 400 mg PO BID [facility] Stop: 06/22/22 20:59 Last Admin: 05/29/22 08:16 Dose: 400 mg Apixaban (Apixaban 5 Mg Tablet) 5 mg PO BID TIERA Stop: 06/25/22 20:59 Last Admin: 05/29/22 08:15 Dose: 5 mg Dextrose (Dextrose 50% 50 Ml Syringe) 25 - 50 ml IV UD PRN; Protocol PRN Reason: Hypoglycemia Protocol Stop: 06/17/22 23:35 Furosemide (Furosemide 40 Mg Tab) 40 mg PO DAILY TIERA Stop: 06/25/22 08:59 Last Admin: 05/28/22 08:31 Dose: 40 mg Furosemide (Furosemide 40 Mg/4 Ml Vial) 40 mg IV QAM TIERA Stop: 06/28/22 08:59 Last Admin: 05/29/22 08:46 Dose: 40 mg Glucagon (Glucagon For Inj 1 Mg Vial) 1 mg SQ UD PRN; Protocol PRN Reason: Hypoglycemia Protocol Stop: 06/17/22 23:35 Glucose (Glucose 10 Tab/Tube) 4 - 8 tab PO UD PRN; Protocol PRN Reason: Hypoglycemia Treatment Stop: 06/17/22 23:35 Glucose (Glucose 40% Gel 15 Gm Tube) 15 - 30 gm PO UD PRN; Protocol PRN Reason: Hypoglycemia Protocol Stop: 06/17/22 23:35 Daptomycin 700 mg/ Syringe 14 mls @ 7 mls/min IV Q24H TIERA; Protocol Stop: 07/05/22 11:59 Last Admin: 05/28/22 11:54 Dose: 7 mls/min Insulin Aspart (Insulin Aspart Per Unit) 0 units SC ACHS TIERA Stop: 06/18/22 22:59 Last Admin: 05/29/22 08:39 Dose: Not Given Insulin Glargine (Lantus Per Unit Charge) 8 units SQ DAILY TIERA Stop: 06/27/22 08:59 Last Admin: 05/29/22 08:14 Dose: 8 units Magnesium Oxide (Magnesium Oxide 400 Mg Tab) 400 mg PO BID TIERA Stop: 06/26/22 08:59 Last Admin: 05/29/22 08:15 Dose: 400 mg Metoprolol Succinate (Metoprolol Succ 25mg Ext Rel Tab) 12.5 mg PO BID TIERA Stop: 06/27/22 20:59 Last Admin: 05/29/22 08:17 Dose: 12.5 mg Midodrine (Midodrine Hcl 2.5 Mg Tab) 5 mg PO DAILY@0700 TIERA Stop: 06/26/22 02:24 Last Admin: 05/29/22 08:16 Dose: 5 mg Mirtazapine (Mirtazapine Tab 15 Mg Tab) 7.5 mg PO HS TIERA Stop: 06/26/22 20:59 Last Admin: 05/28/22 19:49 Dose: 7.5 mg Miscellaneous (Carbohydrates For Hypoglycemia ) 15 - 30 gm PO UD PRN PRN Reason: Hypoglycemia Protocol Stop: 06/17/22 23:35 Miscellaneous Information (Pharmacy Glycemic Mgmt Consult) 1 each N/A UD PRN PRN Reason: Consult Stop: 06/18/22 22:55 Miscellaneous Information (Pharmacist Discharge Med Rec Consult) 1 each N/A UD PRN PRN Reason: Consult Stop: 06/22/22 12:44 Multivitamins (Multivitamin Tab) 1 tab PO QAM TIERA Stop: 06/27/22 08:59 Last Admin: 05/29/22 08:17 Dose: 1 tab Pantoprazole Sodium (Pantoprazole 40 Mg Tab) 40 mg PO BID [facility] Stop: 06/24/22 20:59 Last Admin: 05/29/22 08:15 Dose: 40 mg Potassium Chloride (Potassium Chloride Pwd 20 Meq Pack) 20 meq PO BID [facility] Stop: 06/26/22 08:59 Last Admin: 05/29/22 08:20 Dose: Not Given Raspberry (Raspberry Syrup 5 Ml Udp) 5 ml PO Q6 [facility] Stop: 05/30/22 11:59 Last Admin: 05/29/22 05:58 Dose: 5 ml Vancomycin HCl (Vancomycin Hcl 500 Mg/10 Ml Soln) 500 mg PO Q6 TIERA Stop: 05/30/22 11:59 Last Admin: 05/29/22 05:58 Dose: 500 mg
[2022-05-29] MEDS: DAPTOmycin 700 MG in SYRINGE 0 ML IV SCH (11:41)
--- NOTE | 2022-05-29 12:14 | Pharmacy Report ---
Pharmacy Glycemic Short Note 2 - Date of Service May 29, 2022 - Glycemic Short BSG Results (Last 24 hours): 05/28/22 05/28/22 05/29/22 16:54 20:14 05:36 Glucose 141 H POC Glucose 131 H 163 H 05/29/22 05/29/22 08:05 11:58 Glucose POC Glucose 123 H 145 H OUTPATIENT ANTIDIABETIC REGIMEN: * Lantus 15 units SQ HS * Sitagliptin 100mg PO daily HbA1C: 5.6% (03/20/22) ASSESSMENT: 05/29/21 * BSGs yesterday were [phone] mg/dL and patient received 9 units of insulin (8 units of Lantus and 1 unit of Novolog). * BSGs today are 141-145 mg/dL. * Continue current regimen. 05/27/22: * BSGs well-controlled yesterday, ranging 86-131 mg/dL. However, nursing notes report patient refusal to eat. * No insulin administered yesterday. Will hold off on basal this morning until PO intake can be further assessed. * Lunch BSG of 169 mg/dL with 16 g of documented carbs - will restart basal now with lunchtime 05/24/22 * Patient's BSGs yesterday were [phone] mg/dL. Patient received 24 units of insulin (10 units of basal and 14 units of bolus). * Patient extubated and tube feeds stopped. Hydrocortisone 50 mg IV daily ongoing. Patient remains on heparin infusion. For antibiotics, she is on IV daptomycin, PO vancomycin, and IV flagyl. * BSGs today are 126-127 mg/dL. * Fasting trending downwards and tube feeds stopped. Decrease Lantus to 8 units (20% reduction). * Continue Novolog. 05/23: * Goal range 140-180 mg/dL for ICU status patient. BSG's in lower end of goal range yesterday, now trending up to upper end of goal range due to initiation of steroids yesterday * Patient now extubated as of this AM, and tubefeeds on hold (previously only running at 10 mL/hr ~ 3 g CHO q4h - not anticipated to have a significant impact on BSG's). Speech assessment pending. Steroids tapering by half. * Anticipated that increased stressors leading to rise in BSG's will now dissipate and BSG's will fall again without intervention. Will not change basal nor bolus regimen at this time. Background: * Pt is a 66 YO female admitted from a facility with severe sepsis and septic shock. She is currently critically ill, intubated, sedated, and requiring vasopressor support. History of DM2 - pharmacy consulted to assist with glycemic management. * Initiated on an insulin drip yesterday -- discontinued last evening due to hypokalemia (K-2.5). Lantus 20 units SQ X 1 given and Novolog q4 (CF- 25mg/dL/unit) initiated. * BSGs elevated since discontinuation of infusion last night: [phone]/dL. * She remains intubated and on pressors. NPO. Continues on IV antibiotics and PO vanc. SCr down-trending. * Novolog parameters tightened this AM to CF 20mg/dL/unit q4. Given BSGs have down-trended throughout the day today ([phone]/dL), will continue with q4 Novolog and an HS Lantus scale tonight. If BSGs rebound into 300s and potassium WNL, would consider resuming insulin infusion for hyperglycemia in setting of critical illness. PLAN FOR INPATIENT GLYCEMIC CONTROL: * Hold outpatient oral diabetes medications * Basal insulin * Lantus 8 units SC daily * Reassess in AM * Bolus insulin * NovoLog per scale ACHS or Q4hrs while NPO * Goal Range: Low 110 mg/dL - High 140 mg/dL * Correction Factor: 25 mg/dL/unit * Nutritional / Prandial insulin per carb ratio of 1 unit per 8 grams CHO consumed
--- NOTE | 2022-05-29 16:32 | Hospitalist Progress Note ---
Date of Service May 29, 2022 Assessment & Plan (1) Septic shock: (2) GI bleed: (3) Respiratory failure with hypoxia: (4) MARIA ELENA (acute kidney injury): (5) Hyponatremia: (6) DM2 (diabetes mellitus, type 2): (7) HLD (hyperlipidemia): (8) HTN (hypertension): (9) H/O: CVA (cerebrovascular accident): (10) Neurogenic bladder: (11) Paroxysmal atrial fibrillation: (12) Depression with anxiety: Plan 66 yo F, resident at [facility] with PMH of CVA with residual right-sided weakne ss, chronic indwelling Milan catheter for neurogenic bladder, morbid obesity, HTN, GI bleeds, DM2, chronic hyponatremia, PAF on Eliquis was brought to the ED 05/18 from [facility] for concerns of encephalopathy and reported bloody bowel movements. She was noted to be obtunded, mildly hypothermic and with dried blood in oral cavity at ED and hence was intubated. She reportedly had another bowel movement in the ED that was dark maroon without clots. She is being managed for the following: C. difficile colitis Norovirus Ac Gastroenteritis Gram-positive bacteremia: 05/19 TT-echo neg for vegetation, GEORGETTE 05/20 - lesions on mitral leaflets, mass present in LA appendage - calcifications vs vegetations. repeat bl cx 05/20 - NG 5 days. Septic shock likely secondary to above Likely metabolic encephalopathy: resolved Concern of endocarditis: ID on board. Ischemic Stroke: allergic to aspirin, rosuvastatin on hold d/t being on Dapto, GLP-1 agonist vs SGLT 2 inhibitor (defer to PCP office once pt out of acute illness). Patient presents with altered mentation and was intubated due to AMS/dried blood in oral cavity Due to persistent hypotension, started on pressors at admission. Milan catheter was changed in the ED. Admitting labs with WBC of 32.5 K, hemoglobin of 11.8, AG metabolic acidosis in ABG. Pro-Maxim and LA elevated. Respiratory BioFire panel was negative. Admitting CXR with mild pulmonary vascular congestion. Admitting CTAP and CT chest: Nonspecific proctocolitis extending from the mid transverse colon distally. Small to moderate right pleural effusion with mild right basilar atelectasis. Admitting CT head with no new acute findings. 05/21 MRI Brain: Multiple small acute infarcts (b/l occipital lobes/left basal ganglia/other areas), likely embolic etiology. No hge or mass effect. 05/21 EEG: No epileptiform discharges or electrographic seizures were seen. 05/22 GEORGETTE: Mass present in left atrial appendage. Multiple focal, nonmobile lesions present on both mitral leaflets s/o calcification vs vegetation. 05/18 blood culture: CONS not lugdunensis 05/20 Bl Cx: NG5D Currently on midodrine, vancomycin p.o. 05/25 Procal wnl. Taper midodrine as able. ID on board: Vanco iv changed to dapto 05/24 --- 6 weeks treatment (through 07/01/22); c/w vanc po for C diff colitis. 05/24 cpk 22, labs weekly while on iv antibiotic, PICC line consent obtained and ordered. GI bleed: Had dark-colored stool in the ED, admitting hemoglobin of 11.8, on Protonix po bid, hemoglobin stable around 11.5, labs in AM. c/w eliquis. per RN, miky alonzo. MARIA ELENA: Admitting creatinine of 4.06, secondary to septic shock, resolved. Type II NSTEMI: Troponin elevated likely secondary to acute illness, EKG and echo done/reviewed. SVT: cardio on board, on amiodarone and metoprolol. DC sotalol per d/w cardiology Iatrogenic volume overload: being diuresed, cardio on board, iv lasix today, c/w FR 1500 ml. A-fib on Eliquis: c/w home eliquis, pt on amio and metoprolol per cardio Electrolyte abnormalities: Including hyponatremia, MARIA ELENA, metabolic acidosis. improving. Sacral wound, stage II: not sure if POA, pt chronically on bed per [facility]. WOCN. Poor appetite/h/o anxiety and depression: Remeron started. DMII: History of, sliding scale. CVA, Neurogenic bladder and anxiety: -home meds as able. -urinary catheter changed in the ER DVT PPx: Eliquis Code Status: DNR/DNI Dispo: PICC line consent obtained/order placed, pending diuresis, expect dc in 2-3 days. Will need exterminator helper Dapto (see above). 05/24: Dr. Lauren - Received a call back from the nurse at [facility] who also took care of Lula. The RN states that Lula was not on any antibiotic in the last 2 months, she stays at the bed 100% of the time, weak on right side, oriented and completely appropriate at baseline, also inquired about allergies listed to atorvastatin and aspirin. On both of these drugs only cutaneous reaction is listed as an allergy on their side and they know no more than this about her allergies to aspirin and statin. Once the patient recovers better, will try to get more history from the patient herself. Admission and Anticipated Discharge Date Admission Date: May 18, 2022 Subjective Patient is seen in follow up of septic shock, GI bleed, C. difficile, norovirus, MARIA ELENA, electrolyte abnormalities. After admission found to have ischemic stroke and concern for infective endocarditis. Patient lying in bed, on RA, awake, alert, oriented, per RN /w poor appetite and has been refusing pt/ot. No nausea or vomiting. Sister present at the bedside. Pt denies pain. Denies fever, chills, chest pain, shortness of breath. feels tired and weak. No abd. pain. PICC line consent obtained and ordered yesterday. Cardiology, ID, palliative medicine following. Review of Systems Review of Systems: All systems reviewed & are unremarkable except as noted in Subjective Physical Exam Physical Exam: General: Awake , alert, oriented x 3, answers appropriately, speech clear. chronically ill appearing obese F HEENT: NC/AT. + thick neck Heart: RRR, no murmur Lower extremity: No erythema, 2+ pitting edema Respiratory: on RA, clear to auscultation w/ some crackles Abdomen: soft, obese, + bowel sounds, nontender : Urinary catheter with yellow urine noted Neurologic: awake and alert, follows commands, speech fluent Sacral stage II ulcer. does not look infected. Results & Data Results & Data ([facility]) Vital Signs (Past 12 Hours) Vital Signs Temp Pulse Pulse Resp BP Pulse Ox O2 Del Method 05/29/22 15:00 85 05/29/22 10:49 37.0 C 76 18 133/80 92 Room Air 05/29/22 08:52 84 05/29/22 08:08 37.1 C 73 17 100/69 90 Room Air 05/29/22 07:30 Room Air Laboratory Results 05/29/22 05/29/22 05/29/22 Range/Units 16:42 11:58 08:05 WBC (4.8-10.8) K/ul RBC (4.20-5.40) M/uL Hgb (12.0-16.0) g/dl Hct (37.0-47.0) % MCV (80.0-100.0) fL MCH (25.0-34.0) pg MCHC (32.0-36.0) g/dL RDW Std Deviation (36.4-46.3) fL RDW Coeff of Nelson (11.5-14.5) % Plt Count (130-400) K/uL MPV (9.4-12.4) fL Absolute Nucleated RBC (0-0.12) K/uL Nucleated RBC % (auto) % Sodium (136-145) mmol/L Potassium (3.5-5.1) mmol/L Chloride (98-107) mmol/L Carbon Dioxide (21-32) mmol/L Anion Gap (3-11) BUN (6-23) mg/dl Creatinine (0.6-1.2) mg/dl Est Cr Clr Drug Dosing ml/min Est GFR ( Amer) ml/min Est GFR (Non-Af Amer) ml/min BUN/Creatinine Ratio (10-20) Glucose (70-99(Fasting)) mg/dl POC Glucose 107 H 145 H 123 H (70-99) mg/dl Calcium (8.5-10.1) mg/dl Magnesium (1.7-2.4) mg/dl 05/29/22 05/29/22 05/28/22 Range/Units 05:36 05:36 20:14 WBC 22.45 H (4.8-10.8) K/ul RBC 4.05 L (4.20-5.40) M/uL Hgb 11.1 L (12.0-16.0) g/dl Hct 31.7 L (37.0-47.0) % MCV 78.3 L (80.0-100.0) fL MCH 27.4 (25.0-34.0) pg MCHC 35.0 (32.0-36.0) g/dL RDW Std Deviation 42.2 (36.4-46.3) fL RDW Coeff of Nelson 16.7 H (11.5-14.5) % Plt Count 380 (130-400) K/uL MPV 9.9 (9.4-12.4) fL Absolute Nucleated RBC 0.02 (0-0.12) K/uL Nucleated RBC % (auto) 0.1 % Sodium 134 L (136-145) mmol/L Potassium 3.4 L (3.5-5.1) mmol/L Chloride 104 (98-107) mmol/L Carbon Dioxide 24 (21-32) mmol/L Anion Gap 6 (3-11) BUN 16 (6-23) mg/dl Creatinine 0.75 (0.6-1.2) mg/dl Est Cr Clr Drug Dosing 80.8 ml/min Est GFR ( Amer) 94.9 ml/min Est GFR (Non-Af Amer) 81.9 ml/min BUN/Creatinine Ratio 21.3 H (10-20) Glucose 141 H (70-99(Fasting)) mg/dl POC Glucose 163 H (70-99) mg/dl Calcium 7.9 L (8.5-10.1) mg/dl Magnesium 1.9 (1.7-2.4) mg/dl Medications Administered Current Inpatient Medications Amiodarone HCl (Amiodarone 200 Mg Tab) 400 mg PO BID TIERA Stop: 06/22/22 20:59 Last Admin: 05/29/22 08:16 Dose: 400 mg Apixaban (Apixaban 5 Mg Tablet) 5 mg PO BID [facility]ERA Stop: 06/25/22 20:59 Last Admin: 05/29/22 08:15 Dose: 5 mg Dextrose (Dextrose 50% 50 Ml Syringe) 25 - 50 ml IV UD PRN; Protocol PRN Reason: Hypoglycemia Protocol Stop: 06/17/22 23:35 Furosemide (Furosemide 40 Mg Tab) 40 mg PO DAILY TIERA Stop: 06/25/22 08:59 Last Admin: 05/28/22 08:31 Dose: 40 mg Furosemide (Furosemide 40 Mg/4 Ml Vial) 40 mg IV QAM [facility] Stop: 06/28/22 08:59 Last Admin: 05/29/22 08:46 Dose: 40 mg Glucagon (Glucagon For Inj 1 Mg Vial) 1 mg SQ UD PRN; Protocol PRN Reason: Hypoglycemia Protocol Stop: 06/17/22 23:35 Glucose (Glucose 10 Tab/Tube) 4 - 8 tab PO UD PRN; Protocol PRN Reason: Hypoglycemia Treatment Stop: 06/17/22 23:35 Glucose (Glucose 40% Gel 15 Gm Tube) 15 - 30 gm PO UD PRN; Protocol PRN Reason: Hypoglycemia Protocol Stop: 06/17/22 23:35 Daptomycin 700 mg/ Syringe 14 mls @ 7 mls/min IV Q24H [facility]; Protocol Stop: 07/05/22 11:59 Last Admin: 05/29/22 11:41 Dose: 7 mls/min Insulin Aspart (Insulin Aspart Per Unit) 0 units SC ACHS [facility] Stop: 06/18/22 22:59 Last Admin: 05/29/22 12:45 Dose: 2 units Insulin Glargine (Lantus Per Unit Charge) 8 units SQ DAILY [facility] Stop: 06/27/22 08:59 Last Admin: 05/29/22 08:14 Dose: 8 units Magnesium Oxide (Magnesium Oxide 400 Mg Tab) 400 mg PO BID [facility] Stop: 06/26/22 08:59 Last Admin: 05/29/22 08:15 Dose: 400 mg Metoprolol Succinate (Metoprolol Succ 25mg Ext Rel Tab) 12.5 mg PO BID [facility] Stop: 06/27/22 20:59 Last Admin: 05/29/22 08:17 Dose: 12.5 mg Midodrine (Midodrine Hcl 2.5 Mg Tab) 5 mg PO DAILY@0700 [facility] Stop: 06/26/22 02:24 Last Admin: 05/29/22 08:16 Dose: 5 mg Mirtazapine (Mirtazapine Tab 15 Mg Tab) 7.5 mg PO HS [facility] Stop: 06/26/22 20:59 Last Admin: 05/28/22 19:49 Dose: 7.5 mg Miscellaneous (Carbohydrates For Hypoglycemia ) 15 - 30 gm PO UD PRN PRN Reason: Hypoglycemia Protocol Stop: 06/17/22 23:35 Miscellaneous Information (Pharmacy Glycemic Mgmt Consult) 1 each N/A UD PRN PRN Reason: Consult Stop: 06/18/22 22:55 Miscellaneous Information (Pharmacist Discharge Med Rec Consult) 1 each N/A UD PRN PRN Reason: Consult Stop: 06/22/22 12:44 Multivitamins (Multivitamin Tab) 1 tab PO QAM [facility] Stop: 06/27/22 08:59 Last Admin: 05/29/22 08:17 Dose: 1 tab Pantoprazole Sodium (Pantoprazole 40 Mg Tab) 40 mg PO BID [facility] Stop: 06/24/22 20:59 Last Admin: 05/29/22 08:15 Dose: 40 mg Potassium Chloride (Potassium Chloride Pwd 20 Meq Pack) 20 meq PO BID [facility] Stop: 06/26/22 08:59 Last Admin: 05/29/22 08:20 Dose: Not Given Raspberry (Raspberry Syrup 5 Ml Udp) 5 ml PO Q6 [facility] Stop: 05/30/22 11:59 Last Admin: 05/29/22 11:41 Dose: 5 ml Vancomycin HCl (Vancomycin Hcl 500 Mg/10 Ml Soln) 500 mg PO Q6 [facility] Stop: 05/30/22 11:59 Last Admin: 05/29/22 11:41 Dose: 500 mg
[2022-05-29] MEDS ORDERED: POTASSIUM CHLORIDE CRTAB 20 MEQ TABCR PO STA (16:56)
[2022-05-29] MEDS: MIRTAZAPINE TAB 15 MG TAB PO SCH (21:17)
[2022-05-30] MEDS: VANCOMYCIN HCL 500 MG/10 ML SOLN PO SCH ×3 (05:36→17:42)
[2022-05-30] MEDS: RASPBERRY SYRUP 5 ML UDP PO SCH ×3 (05:36→17:42)
[2022-05-30 06:44] LABS: Hemoglobin 10.5 g/dl (12.0-16.0); Mean Corpuscular Hemoglobin 27.3 pg (25.0-34.0); Mean Corpuscular Hgb Conc 33.9 g/dL (32.0-36.0); Mean Corpuscular Volume 80.7 fL (80.0-100.0); Mean Platelet Volume 10.1 fL (9.4-12.4); Platelet Count 406 K/uL (130-400); RDW Coefficient of Variation 16.8 % (11.5-14.5); RDW Standard Deviation 44.6 fL (36.4-46.3); Red Blood Count 3.84 M/uL (4.20-5.40); White Blood Count 17.04 K/ul (4.8-10.8)
[2022-05-30 06:58] LABS: BUN Creatinine Ratio 21.6 (10-20); Creatinine Clr Calc Pharmacy 81.6 ml/min; Est GFR (African American) 96.5 ml/min; Est GFR (Non-African American) 83.2 ml/min; Magnesium 1.8 mg/dl (1.7-2.4); Phosphorus 2.7 mg/dl (2.5-4.9)
[2022-05-30] MEDS: METOPROLOL SUCC 25MG EXT REL TAB PO SCH ×2 (08:07→20:31)
--- NOTE | 2022-05-30 08:20 | Hospitalist Progress Note ---
Date of Service May 30, 2022 Assessment & Plan (1) Septic shock: (2) GI bleed: (3) Respiratory failure with hypoxia: (4) MARIA ELENA (acute kidney injury): (5) Hyponatremia: (6) DM2 (diabetes mellitus, type 2): (7) HLD (hyperlipidemia): (8) HTN (hypertension): (9) H/O: CVA (cerebrovascular accident): (10) Neurogenic bladder: (11) Paroxysmal atrial fibrillation: (12) Depression with anxiety: Plan 66 yo F, resident at [facility] with PMH of CVA with residual right-sided weakne ss, chronic indwelling Milan catheter for neurogenic bladder, morbid obesity, HTN, GI bleeds, DM2, chronic hyponatremia, PAF on Eliquis was brought to the ED 05/18 from [facility] for concerns of encephalopathy and reported bloody bowel movements. She was noted to be obtunded, mildly hypothermic and with dried blood in oral cavity at ED and hence was intubated. She reportedly had another bowel movement in the ED that was dark maroon without clots. She is being managed for the following: C. difficile colitis Norovirus Ac Gastroenteritis Gram-positive bacteremia: 05/19 TT-echo neg for vegetation, GEORGETTE 05/20 - lesions on mitral leaflets, mass present in LA appendage - calcifications vs vegetations. repeat bl cx 05/20 - NG 5 days. Septic shock likely secondary to above Likely metabolic encephalopathy: resolved Concern of endocarditis: ID on board. Ischemic Stroke: allergic to aspirin, rosuvastatin on hold d/t being on Dapto, GLP-1 agonist vs SGLT 2 inhibitor (defer to PCP office once pt out of acute illness). Patient presents with altered mentation and was intubated due to AMS/dried blood in oral cavity Due to persistent hypotension, started on pressors at admission. Milan catheter was changed in the ED. Admitting labs with WBC of 32.5 K, hemoglobin of 11.8, AG metabolic acidosis in ABG. Pro-Maxim and LA elevated. Respiratory BioFire panel was negative. Admitting CXR with mild pulmonary vascular congestion. Admitting CTAP and CT chest: Nonspecific proctocolitis extending from the mid transverse colon distally. Small to moderate right pleural effusion with mild right basilar atelectasis. Admitting CT head with no new acute findings. 05/21 MRI Brain: Multiple small acute infarcts (b/l occipital lobes/left basal ganglia/other areas), likely embolic etiology. No hge or mass effect. 05/21 EEG: No epileptiform discharges or electrographic seizures were seen. 05/22 GEORGETTE: Mass present in left atrial appendage. Multiple focal, nonmobile lesions present on both mitral leaflets s/o calcification vs vegetation. 05/18 blood culture: CONS not lugdunensis 05/20 Bl Cx: NG5D Currently on midodrine, vancomycin p.o. 05/25 Procal wnl. Taper midodrine as able. ID on board: Vanco iv changed to dapto 05/24 --- 6 weeks treatment (through 07/01/22); c/w vanc po for C diff colitis. 05/24 cpk 22, labs weekly while on iv antibiotic, PICC line consent obtained and ordered. however not able to placed PICC, therefore US-guided line was placed (05/30/2022). GI bleed: Had dark-colored stool in the ED, admitting hemoglobin of 11.8, on Protonix po bid, hemoglobin stable around 11.5, labs in AM. c/w eliquis. per RN, miky alonzo. MARIA ELENA: Admitting creatinine of 4.06, secondary to septic shock, resolved. Type II NSTEMI: Troponin elevated likely secondary to acute illness, EKG and echo done/reviewed. SVT: cardio on board, on amiodarone and metoprolol. DC sotalol per d/w cardiology Iatrogenic volume overload: being diuresed, cardio on board, iv lasix today, c/w FR 1500 ml. Unfortunately diuresis difficult d/t borderline BP, discussed w/ cardiology. Prognosis remains guarded. A-fib on Eliquis: c/w home eliquis, pt on amio and metoprolol per cardio Electrolyte abnormalities: Including hyponatremia, MARIA ELENA, metabolic acidosis. improving. Sacral wound, stage II: not sure if POA, pt chronically on bed per [facility]. WOCN. Poor appetite/h/o anxiety and depression: Remeron started. DMII: History of, sliding scale. CVA, Neurogenic bladder and anxiety: -home meds as able. -urinary catheter changed in the ER DVT PPx: Eliquis Code Status: DNR/DNI Dispo: PICC line consent obtained/order placed, pending diuresis, expect dc in 2-3 days. Will need cupola patcher Dapto (see above). 05/24: Dr. Lauren - Received a call back from the nurse at [facility] who also took care of Lula. The RN states that Lula was not on any antibiotic in the last 2 months, she stays at the bed 100% of the time, weak on right side, oriented and completely appropriate at baseline, also inquired about allergies listed to atorvastatin and aspirin. On both of these drugs only cutaneous reaction is listed as an allergy on their side and they know no more than this about her allergies to aspirin and statin. Once the patient recovers better, will try to get more history from the patient herself. Admission and Anticipated Discharge Date Admission Date: May 18, 2022 Subjective Patient is seen in follow up of septic shock, GI bleed, C. difficile, norovirus, MARIA ELENA, electrolyte abnormalities. After admission found to have ischemic stroke and concern for infective endocarditis. Patient lying in bed, on RA, awake, alert, oriented, per RN /w poor appetite and has been refusing pt/ot. No nausea or vomiting. Pt denies pain. Denies fever, chills, chest pain, shortness of breath. feels tired and weak. No abd. pain. PICC line consent obtained and ordered however not able to be placed, US-guided was placed. Cardiology, ID, palliative medicine following. Diuresis difficult d/t borderline BP. Prognosis remains guarded. Review of Systems Review of Systems: All systems reviewed & are unremarkable except as noted in Subjective Physical Exam Physical Exam: General: Awake , alert, oriented x 3, answers appropriately, speech clear. chronically ill appearing obese F HEENT: NC/AT. + thick neck, central line placed Heart: RRR, no murmur Lower extremity: No erythema, 2+ pitting edema Respiratory: on RA, clear to auscultation w/ some crackles Abdomen: soft, obese, + bowel sounds, nontender : Urinary catheter with yellow urine noted Neuro/psych: awake and alert, follows commands, speech fluent, poor eye contact Sacral stage II ulcer. does not look infected. Results & Data Results & Data ([facility]) Vital Signs (Past 12 Hours) Vital Signs Temp Pulse Pulse Pulse Resp BP BP 05/30/22 07:34 37 C 87 18 88/44 L 05/30/22 03:35 36.5 C 80 16 106/70 05/30/22 00:00 82 05/29/22 23:00 37.0 C 85 16 116/64 Pulse Ox O2 Del Method 05/30/22 07:34 97 Room Air 05/30/22 03:35 94 Room Air 05/30/22 00:00 05/29/22 23:00 94 Room Air Laboratory Results 05/30/22 05/30/22 05/30/22 Range/Units 07:59 05:23 05:23 WBC 17.04 H (4.8-10.8) K/ul RBC 3.84 L (4.20-5.40) M/uL Hgb 10.5 L (12.0-16.0) g/dl Hct 31.0 L (37.0-47.0) % MCV 80.7 (80.0-100.0) fL MCH 27.3 (25.0-34.0) pg MCHC 33.9 (32.0-36.0) g/dL RDW Std Deviation 44.6 (36.4-46.3) fL RDW Coeff of Nelson 16.8 H (11.5-14.5) % Plt Count 406 H (130-400) K/uL MPV 10.1 (9.4-12.4) fL Sodium 136 (136-145) mmol/L Potassium 4.0 (3.5-5.1) mmol/L Chloride 105 (98-107) mmol/L Carbon Dioxide 25 (21-32) mmol/L Anion Gap 6 (3-11) BUN 16 (6-23) mg/dl Creatinine 0.74 (0.6-1.2) mg/dl Est Cr Clr Drug Dosing 81.6 ml/min Est GFR ( Amer) 96.5 ml/min Est GFR (Non-Af Amer) 83.2 ml/min BUN/Creatinine Ratio 21.6 H (10-20) Glucose 95 (70-99(Fasting)) mg/dl POC Glucose 93 (70-99) mg/dl Calcium 8.0 L (8.5-10.1) mg/dl Phosphorus 2.7 (2.5-4.9) mg/dl Magnesium 1.8 (1.7-2.4) mg/dl 05/29/22 05/29/22 05/29/22 Range/Units 20:41 16:42 11:58 WBC (4.8-10.8) K/ul RBC (4.20-5.40) M/uL Hgb (12.0-16.0) g/dl Hct (37.0-47.0) % MCV (80.0-100.0) fL MCH (25.0-34.0) pg MCHC (32.0-36.0) g/dL RDW Std Deviation (36.4-46.3) fL RDW Coeff of Nelson (11.5-14.5) % Plt Count (130-400) K/uL MPV (9.4-12.4) fL Sodium (136-145) mmol/L Potassium (3.5-5.1) mmol/L Chloride (98-107) mmol/L Carbon Dioxide (21-32) mmol/L Anion Gap (3-11) BUN (6-23) mg/dl Creatinine (0.6-1.2) mg/dl Est Cr Clr Drug Dosing ml/min Est GFR ( Amer) ml/min Est GFR (Non-Af Amer) ml/min BUN/Creatinine Ratio (10-20) Glucose (70-99(Fasting)) mg/dl POC Glucose 100 H 107 H 145 H (70-99) mg/dl Calcium (8.5-10.1) mg/dl Phosphorus (2.5-4.9) mg/dl Magnesium (1.7-2.4) mg/dl Medications Administered Current Inpatient Medications Amiodarone HCl (Amiodarone 200 Mg Tab) 400 mg PO BID [facility] Stop: 06/22/22 20:59 Last Admin: 05/29/22 21:15 Dose: 400 mg Apixaban (Apixaban 5 Mg Tablet) 5 mg PO BID [facility] Stop: 06/25/22 20:59 Last Admin: 05/29/22 21:15 Dose: 5 mg Dextrose (Dextrose 50% 50 Ml Syringe) 25 - 50 ml IV UD PRN; Protocol PRN Reason: Hypoglycemia Protocol Stop: 06/17/22 23:35 Furosemide (Furosemide 40 Mg Tab) 40 mg PO DAILY [facility] Stop: 06/25/22 08:59 Last Admin: 05/28/22 08:31 Dose: 40 mg Furosemide (Furosemide 40 Mg/4 Ml Vial) 40 mg IV QAM [facility] Stop: 06/28/22 08:59 Last Admin: 05/29/22 08:46 Dose: 40 mg Glucagon (Glucagon For Inj 1 Mg Vial) 1 mg SQ UD PRN; Protocol PRN Reason: Hypoglycemia Protocol Stop: 06/17/22 23:35 Glucose (Glucose 10 Tab/Tube) 4 - 8 tab PO UD PRN; Protocol PRN Reason: Hypoglycemia Treatment Stop: 06/17/22 23:35 Glucose (Glucose 40% Gel 15 Gm Tube) 15 - 30 gm PO UD PRN; Protocol PRN Reason: Hypoglycemia Protocol Stop: 06/17/22 23:35 Daptomycin 700 mg/ Syringe 14 mls @ 7 mls/min IV Q24H [facility]; Protocol Stop: 07/05/22 11:59 Last Admin: 05/29/22 11:41 Dose: 7 mls/min Insulin Aspart (Insulin Aspart Per Unit) 0 units SC ACHS [facility] Stop: 06/18/22 22:59 Last Admin: 05/29/22 21:14 Dose: Not Given Insulin Glargine (Lantus Per Unit Charge) 8 units SQ DAILY [facility] Stop: 06/27/22 08:59 Last Admin: 05/29/22 08:14 Dose: 8 units Insulin Glargine (Lantus Per Unit Charge) 5 units SQ NOW ONE Stop: 05/30/22 09:01 Magnesium Oxide (Magnesium Oxide 400 Mg Tab) 400 mg PO BID [facility] Stop: 06/26/22 08:59 Last Admin: 05/29/22 21:46 Dose: 400 mg Metoprolol Succinate (Metoprolol Succ 25mg Ext Rel Tab) 12.5 mg PO BID [facility] Stop: 06/27/22 20:59 Last Admin: 05/30/22 08:07 Dose: Not Given Midodrine (Midodrine Hcl 2.5 Mg Tab) 5 mg PO DAILY@0700 [facility] Stop: 06/26/22 02:24 Last Admin: 05/29/22 08:16 Dose: 5 mg Mirtazapine (Mirtazapine Tab 15 Mg Tab) 7.5 mg PO HS [facility] Stop: 06/26/22 20:59 Last Admin: 05/29/22 21:17 Dose: 7.5 mg Miscellaneous (Carbohydrates For Hypoglycemia ) 15 - 30 gm PO UD PRN PRN Reason: Hypoglycemia Protocol Stop: 06/17/22 23:35 Miscellaneous Information (Pharmacy Glycemic Mgmt Consult) 1 each N/A UD PRN PRN Reason: Consult Stop: 06/18/22 22:55 Miscellaneous Information (Pharmacist Discharge Med Rec Consult) 1 each N/A UD PRN PRN Reason: Consult Stop: 06/22/22 12:44 Multivitamins (Multivitamin Tab) 1 tab PO QAM [facility] Stop: 06/27/22 08:59 Last Admin: 05/29/22 08:17 Dose: 1 tab Pantoprazole Sodium (Pantoprazole 40 Mg Tab) 40 mg PO BID [facility] Stop: 06/24/22 20:59 Last Admin: 05/29/22 21:16 Dose: 40 mg Potassium Chloride (Potassium Chloride Pwd 20 Meq Pack) 20 meq PO BID [facility] Stop: 06/26/22 08:59 Last Admin: 05/29/22 21:46 Dose: 20 meq Raspberry (Raspberry Syrup 5 Ml Udp) 5 ml PO Q6 [facility] Stop: 06/04/22 23:59 Last Admin: 05/30/22 05:36 Dose: Not Given Vancomycin HCl (Vancomycin Hcl 500 Mg/10 Ml Soln) 500 mg PO Q6 [facility] Stop: 06/04/22 23:59 Last Admin: 05/30/22 05:36 Dose: 500 mg
[2022-05-30] MEDS: MIDODRINE HCL 2.5 MG TAB PO SCH (08:46)
[2022-05-30] MEDS: FUROSEMIDE 40 MG/4 ML VIAL IV SCH (08:47)
[2022-05-30] MEDS: AMIODARONE 200 MG TAB PO SCH ×2 (08:47→20:31)
[2022-05-30] MEDS: APIXABAN 5 MG TABLET PO SCH ×2 (08:48→20:30)
[2022-05-30] MEDS: MULTIVITAMIN TAB PO SCH (08:48)
[2022-05-30] MEDS: MAGNESIUM OXIDE 400 MG TAB PO SCH ×2 (08:48→20:31)
[2022-05-30] MEDS: PANTOprazole 40 MG TAB PO SCH ×2 (08:49→20:30)
[2022-05-30] MEDS: POTASSIUM CHLORIDE PWD 20 MEQ PACK PO SCH ×2 (08:49→20:32)
[2022-05-30] MEDS ORDERED: LANTUS PER UNIT CHARGE SQ ONE (09:00)
[2022-05-30] MEDS: INSULIN ASPART PER UNIT SC SCH ×4 (09:05→21:50)
--- NOTE | 2022-05-30 10:53 | Infectious Disease Progress Nt ---
Date of Service May 30, 2022 Assessment & Plan (1) Severe sepsis with septic shock: Plan: 66-year-old female, past medical history of CVA with right hemiplegia, diabetes type 2, hypertension, MDD/anxiety, A-fib on Eliquis, hyperlipidemia, neurogenic bladder with chronic indwelling Milan catheter, COVID infection in February, who presented to the ED on 05/18/2022 from her nursing home facility at [facility] for altered mental status and diarrhea over the past 24 hours. Problem List #Endocarditis, multiple mitral and aortic valve #Acute brain infarcts #Septic shock resolved #CoNS bacteremia #Cdiff Colitis #Leukocytosis ABX Daptomycin CPK 05/25: 22 05/24- Flagyl 500mg IV q8 hours Vancomycin po #septic shock, resolved -in setting of admission from her SNF with report of diarrhea, AMS, hypotension -CT chest and CT abdomen pelvis without contrast showed nonspecific proctocolitis -05/19 stool PCR panel positive for C. difficile and norovirus. -pt on PO vanco/IV metronidazole -no rectal tube, extubated, now on RA -WBC remains elevated, in setting of also receiving steroids -ARF dramatically improved #abnormal GEORGETTE -MRI brain on 05/21 showed multiple small scattered foci restricted diffusion which represent acute infarcts and favoring embolic etiology. EEG with generalized slowing. -05/22 GEORGETTE showed multiple focal, nonmobile lesions present on both mitral leaflets and a mass present in the left atrial appendage and focal thickening of the left coronary cusp, calcification versus vegetation. 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 - 05/18 blood cultures with coagulase-negative staph not lugdunensis in 2 out of 2 sets, with 2 different coagulase-negative staph species in 1 of 2 sets- for 1 species, vanco SOL is 2. -05/20 blood cultures are no growth to date. -pt is unable to provide history- including on recent abx prior to this admission Recommend: Multiple species of coagulase negative staph increases likelihood of contaminants and coagulase negative staph endocarditis rare unless prosthetic valve present. Dr. New spoke to micro lab- as there are 2 types of GEOCHEMICAL MANAGER in 1 set with different susceptibilities, I requested that susceptibility testing be performed on the GEOCHEMICAL MANAGER in the other set- One is oxacillin sensi, the other is oxacillin R. 05/20 repeat Bcxs are NGTD. Pt is not able to provide history, so would ask primary team to determine from SNF if pt was on antibiotics for period of 4 weeks prior to admission. Cardiology recommending treatment for IE. Antibiotics changed from vancomycin to daptomycin 700 mg (~10 mg/kg based on adjusted body weight) IV daily for ease of administration long-term and vanco SOL. CPK ordered for AM baseline. Pt not on statin. Would continue metronidazole IV and vanco PO for treatment of c. dif colitis. Plan Plan to continue with IV daptomycin anticipate treatment for 6 weeks from negative blood culture, likely through 07/01/22 Plan to treat for Cdiff colitis with Po x 14 days When ready fro discharge will need weekly CBC, CPK, CMP CPK 22 baseline Change Vancomycin to 125mg po BID once 14 days completed and continue through 07/08/22 ID following with you Will speak to primary team Mel Rodriguez MD Infectious Diseases Admission and Anticipated Discharge Date Admission Date: May 18, 2022 Subjective This patient recommendation is based on a telemedicine consult request which was completed asynchronously through chart review and information provided by the primary physician. The patient was not seen or examined today. The evaluation is consultative in nature and all patient care and treatment decisions can either be accepted or rejected by the patient's primary hospital-based treating physician using their own independent medical judgment for their patient. Time Spent Reviewing Chart: 21 - 30 minutes No acute events Results & Data ([facility]) Vital Signs (Past 12 Hours) Vital Signs Temp Pulse Pulse Pulse Resp BP BP 05/30/22 09:00 87 130/82 05/30/22 09:33 05/30/22 09:33 80 05/30/22 07:34 37 C 87 18 88/44 L 05/30/22 03:35 36.5 C 80 16 106/70 05/30/22 00:00 82 05/29/22 23:00 37.0 C 85 16 116/64 Pulse Ox O2 Del Method 05/30/22 09:00 05/30/22 09:33 Room Air 05/30/22 09:33 05/30/22 07:34 97 Room Air 05/30/22 03:35 94 Room Air 05/30/22 00:00 05/29/22 23:00 94 Room Air Laboratory Results Short CBC 05/30/22 Range/Units 05:23 WBC 17.04 H (4.8-10.8) K/ul Hgb 10.5 L (12.0-16.0) g/dl Hct 31.0 L (37.0-47.0) % Plt Count 406 H (130-400) K/uL BMP 05/30/22 05:23 Sodium 136 Potassium 4.0 Chloride 105 Carbon Dioxide 25 BUN 16 Creatinine 0.74 Glucose 95 Calcium 8.0 L Microbiology 05/18/22 17:22 Blood Aerobic Blood Culture - Final Coag neg staph not lugdunensis 05/18/22 17:22 Blood Anaerobic Blood Culture - Final 05/20/22 03:55 Blood Aerobic Blood Culture - Final No growth in Aerobic bottle after 5 days. 05/20/22 03:55 Blood Anaerobic Blood Culture - Final No growth in Anaerobic bottle after 5 days. 05/20/22 03:55 Blood Aerobic Blood Culture - Final No growth in Aerobic bottle after 5 days. 05/20/22 03:55 Blood Anaerobic Blood Culture - Final No growth in Anaerobic bottle after 5 days. 05/18/22 16:53 Blood Aerobic Blood Culture - Final Coag neg staph not lugdunensis 05/18/22 16:53 Blood Anaerobic Blood Culture - Final Coag neg staph not lugdunensis Coag neg staph not lugdunensis#2 Coag neg staph not lugdunensis#3 Medications Administered Current Inpatient Medications Amiodarone HCl (Amiodarone 200 Mg Tab) 400 mg PO BID TIERA Stop: 06/22/22 20:59 Last Admin: 05/30/22 08:47 Dose: 400 mg Apixaban (Apixaban 5 Mg Tablet) 5 mg PO BID TIERA Stop: 06/25/22 20:59 Last Admin: 05/30/22 08:48 Dose: 5 mg Dextrose (Dextrose 50% 50 Ml Syringe) 25 - 50 ml IV UD PRN; Protocol PRN Reason: Hypoglycemia Protocol Stop: 06/17/22 23:35 Furosemide (Furosemide 40 Mg Tab) 40 mg PO DAILY TIERA Stop: 06/25/22 08:59 Last Admin: 05/28/22 08:31 Dose: 40 mg Furosemide (Furosemide 40 Mg/4 Ml Vial) 40 mg IV QAM TIERA Stop: 06/28/22 08:59 Last Admin: 03/02/23 08:47 Dose: 40 mg Glucagon (Glucagon For Inj 1 Mg Vial) 1 mg SQ UD PRN; Protocol PRN Reason: Hypoglycemia Protocol Stop: 06/17/22 23:35 Glucose (Glucose 10 Tab/Tube) 4 - 8 tab PO UD PRN; Protocol PRN Reason: Hypoglycemia Treatment Stop: 06/17/22 23:35 Glucose (Glucose 40% Gel 15 Gm Tube) 15 - 30 gm PO UD PRN; Protocol PRN Reason: Hypoglycemia Protocol Stop: 06/17/22 23:35 Daptomycin 700 mg/ Syringe 14 mls @ 7 mls/min IV Q24H COUNTS INCLUDE 234 BEDS AT THE [facility]; Protocol Stop: 07/05/22 11:59 Last Admin: 05/29/22 11:41 Dose: 7 mls/min Insulin Aspart (Insulin Aspart Per Unit) 0 units SC ACHS COUNTS INCLUDE 234 BEDS AT THE [facility] Stop: 06/18/22 22:59 Last Admin: 05/30/22 09:05 Dose: Not Given Insulin Glargine (Lantus Per Unit Charge) 8 units SQ DAILY COUNTS INCLUDE 234 BEDS AT THE [facility] Stop: 06/27/22 08:59 Last Admin: 05/29/22 08:14 Dose: 8 units Magnesium Oxide (Magnesium Oxide 400 Mg Tab) 400 mg PO BID COUNTS INCLUDE 234 BEDS AT THE [facility] Stop: 06/26/22 08:59 Last Admin: 05/30/22 08:48 Dose: 400 mg Metoprolol Succinate (Metoprolol Succ 25mg Ext Rel Tab) 12.5 mg PO BID COUNTS INCLUDE 234 BEDS AT THE [facility] Stop: 06/27/22 20:59 Last Admin: 05/30/22 08:07 Dose: Not Given Midodrine (Midodrine Hcl 2.5 Mg Tab) 5 mg PO DAILY@0700 COUNTS INCLUDE 234 BEDS AT THE [facility] Stop: 06/26/22 02:24 Last Admin: 05/30/22 08:46 Dose: 5 mg Mirtazapine (Mirtazapine Tab 15 Mg Tab) 7.5 mg PO HS COUNTS INCLUDE 234 BEDS AT THE [facility] Stop: 06/26/22 20:59 Last Admin: 05/29/22 21:17 Dose: 7.5 mg Miscellaneous (Carbohydrates For Hypoglycemia ) 15 - 30 gm PO UD PRN PRN Reason: Hypoglycemia Protocol Stop: 06/17/22 23:35 Miscellaneous Information (Pharmacy Glycemic Mgmt Consult) 1 each N/A UD PRN PRN Reason: Consult Stop: 06/18/22 22:55 Miscellaneous Information (Pharmacist Discharge Med Rec Consult) 1 each N/A UD PRN PRN Reason: Consult Stop: 06/22/22 12:44 Multivitamins (Multivitamin Tab) 1 tab PO QAM TIERA Stop: 06/27/22 08:59 Last Admin: 05/30/22 08:48 Dose: 1 tab Pantoprazole Sodium (Pantoprazole 40 Mg Tab) 40 mg PO BID TIERA Stop: 06/24/22 20:59 Last Admin: 05/30/22 08:49 Dose: 40 mg Potassium Chloride (Potassium Chloride Pwd 20 Meq Pack) 20 meq PO BID TIERA Stop: 06/26/22 08:59 Last Admin: 05/30/22 08:49 Dose: 20 meq Raspberry (Raspberry Syrup 5 Ml Udp) 5 ml PO Q6 COUNTS INCLUDE 234 BEDS AT THE [facility] Stop: 06/04/22 23:59 Last Admin: 05/30/22 05:36 Dose: Not Given Vancomycin HCl (Vancomycin Hcl 500 Mg/10 Ml Soln) 500 mg PO Q6 COUNTS INCLUDE 234 BEDS AT THE [facility] Stop: 06/04/22 23:59 Last Admin: 05/30/22 05:36 Dose: 500 mg
--- NOTE | 2022-05-30 11:05 | Cardiology Progress Note ---
Date of Service May 30, 2022 Assessment & Plan (1) Ischemic stroke: (2) Palliative care encounter: (3) Severe sepsis with septic shock: (4) Altered mental status: (5) Acute respiratory failure with hypoxia: (6) Acute renal failure: (7) High anion gap metabolic acidosis: (8) Septic shock: (9) H/O: CVA (cerebrovascular accident): (10) HTN (hypertension): (11) Paroxysmal atrial fibrillation: (12) Endocarditis: Plan Medically complex 66 year old admitted for sepsis, bacteremia, hypotension, CVA, and complicated by GI bleed. She required several days of mechanical ventilation with pressors, but now off therapy and extubated. Cardio was asked to evaluate again for recurrent atrial arrhythmias. Patient has a history of PAF, was previously on sotalol and diltiazem as outpatient. These were stopped on admission with sepsis, hypotension. Due to recurrent atrial arrhythmias, IV amiodarone was initiated during hospitalization and then transitioned to oral amiodarone. Currently taking 400 mg BID, and anticipate reducing dose to 200 mg BID on discharge for 1 month, then 200 mg daily. Metoprolol 12.5 mg BID was added. She is tolerating and afib episodes are shorter in duration. Continue Eliquis for stroke prophylaxis. On prior echo/GEORGETTE earlier this admission, he had Three separate lesions present that per interpretation, may represent endocarditis: mitral valve, aortic valve and left atrial appendage Given clinical context the recommendation was to continue to treating with IV antibiotics for 6 weeks. ID following as well. Palliative care also consulted this admission given multiple comorbidities. Would not be a surgical candidate for intervention Upon re-evaluation this week, it was noted she was up 13 kg since admission, likely due to aggressive fluid resuscitation in the ICU. Now has significant volume overload on exam. Oral furosemide was resumed but no significant improvement. IV furosemide 40 mg ordered over the last 2 days without significant improvement. Medication doses and aggressive diuresis is limited due to boderline hypote nsion. Eventually, would transition back to oral furosemide to maintain fluid status. Supplement potassium. Monitor I+O's. Unable to do standing scale, but monitor bed weights. Overall, poor prognosis. Will need SNF on discharge. Would consider hospice. Case discussed with primary hospitalist today, Dr. Lopez. Case discussed with Dr. Sierra Admission and Anticipated Discharge Date Admission Date: May 18, 2022 Supervising Physician Co-Signing Physician Notes I have reviewed the advance practitioner documentation and agree. I saw and evaluated the patient on the date of service referenced in the note and have performed a medically appropriate history and or exam. Agree the prognosis is poor. SNF after discharge and consider hospice. Subjective Patient resting in bed. Answers questions appropriately in "yes or no" format. Denies chest pain or SOB. Verbalizes no complaints. remains markedly volume overload. No significant improvement with IV lasix. BP limits medication administration Review of Systems Review of Systems: All systems reviewed & are unremarkable except as noted in HPI & below Physical Exam Constitutional: WD/WN, vitals as above + obese; no acute distress Neck: + thick neck Respiratory: no respiratory distress Auscultation: + diminished lung sounds and + rales Cardiovascular: Rate/Rhythm: regular rate and regular rhythm Heart Sounds: no murmur (distant heart sounds) Extremities: + edema (2+ LE edema to thighs) Results & Data ([facility]) Vital Signs (Past 12 Hours) Vital Signs Temp Pulse Pulse Pulse Resp BP BP 05/30/22 09:00 87 130/82 05/30/22 09:33 05/30/22 09:33 80 05/30/22 07:34 37 C 87 18 88/44 L 05/30/22 03:35 36.5 C 80 16 106/70 05/30/22 00:00 82 Pulse Ox O2 Del Method 05/30/22 09:00 05/30/22 09:33 Room Air 05/30/22 09:33 05/30/22 07:34 97 Room Air 05/30/22 03:35 94 Room Air 05/30/22 00:00 Laboratory Results CBC 05/30/22 Range/Units 05:23 WBC 17.04 H (4.8-10.8) K/ul RBC 3.84 L (4.20-5.40) M/uL Hgb 10.5 L (12.0-16.0) g/dl Hct 31.0 L (37.0-47.0) % Plt Count 406 H (130-400) K/uL Comprehensive Metabolic Panel 05/30/22 Range/Units 05:23 Sodium 136 (136-145) mmol/L Potassium 4.0 (3.5-5.1) mmol/L Chloride 105 (98-107) mmol/L Carbon Dioxide 25 (21-32) mmol/L BUN 16 (6-23) mg/dl Creatinine 0.74 (0.6-1.2) mg/dl Glucose 95 (70-99(Fasting)) mg/dl Calcium 8.0 L (8.5-10.1) mg/dl Intake and Output 05/29/22 05/30/22 05/30/22 22:59 06:59 14:59 Output Total 953 / 1053 100 / 1053 Balance -953 / -1053 -100 / -1053 Output: Urine Amount (Catheter) 950 / 1050 100 / 1050 Milan/Indwelling 950 / 1050 100 / 1050 # Bowel Movements 3 / 3 Other: Other Intake Source Sips Sips Weight 102.5 kg Weight Measurement Method Built in [facility] Diagnostic Findings Telemetry reviewed: Only brief episodes of atrial flutter overnight, converting to NSR. This morning she remains in NSR. Medications Administered Current Inpatient Medications Amiodarone HCl (Amiodarone 200 Mg Tab) 400 mg PO BID TIERA Stop: 06/22/22 20:59 Last Admin: 05/30/22 08:47 Dose: 400 mg Apixaban (Apixaban 5 Mg Tablet) 5 mg PO BID TIERA Stop: 06/25/22 20:59 Last Admin: 05/30/22 08:48 Dose: 5 mg Dextrose (Dextrose 50% 50 Ml Syringe) 25 - 50 ml IV UD PRN; Protocol PRN Reason: Hypoglycemia Protocol Stop: 06/17/22 23:35 Furosemide (Furosemide 40 Mg Tab) 40 mg PO DAILY TIERA Stop: 06/25/22 08:59 Last Admin: 05/28/22 08:31 Dose: 40 mg Furosemide (Furosemide 40 Mg/4 Ml Vial) 40 mg IV QAM TIERA Stop: 06/28/22 08:59 Last Admin: 05/30/22 08:47 Dose: 40 mg Glucagon (Glucagon For Inj 1 Mg Vial) 1 mg SQ UD PRN; Protocol PRN Reason: Hypoglycemia Protocol Stop: 06/17/22 23:35 Glucose (Glucose 10 Tab/Tube) 4 - 8 tab PO UD PRN; Protocol PRN Reason: Hypoglycemia Treatment Stop: 06/17/22 23:35 Glucose (Glucose 40% Gel 15 Gm Tube) 15 - 30 gm PO UD PRN; Protocol PRN Reason: Hypoglycemia Protocol Stop: 06/17/22 23:35 Daptomycin 700 mg/ Syringe 14 mls @ 7 mls/min IV Q24H [facility]; Protocol Stop: 07/05/22 11:59 Last Admin: 05/29/22 11:41 Dose: 7 mls/min Insulin Aspart (Insulin Aspart Per Unit) 0 units SC ACHS [facility] Stop: 06/18/22 22:59 Last Admin: 05/30/22 09:05 Dose: Not Given Insulin Glargine (Lantus Per Unit Charge) 8 units SQ DAILY TIERA Stop: 06/27/22 08:59 Last Admin: 05/29/22 08:14 Dose: 8 units Magnesium Oxide (Magnesium Oxide 400 Mg Tab) 400 mg PO BID [facility] Stop: 06/26/22 08:59 Last Admin: 05/30/22 08:48 Dose: 400 mg Metoprolol Succinate (Metoprolol Succ 25mg Ext Rel Tab) 12.5 mg PO BID [facility] Stop: 06/27/22 20:59 Last Admin: 05/30/22 08:07 Dose: Not Given Midodrine (Midodrine Hcl 2.5 Mg Tab) 5 mg PO DAILY@0700 [facility] Stop: 06/26/22 02:24 Last Admin: 05/30/22 08:46 Dose: 5 mg Mirtazapine (Mirtazapine Tab 15 Mg Tab) 7.5 mg PO HS [facility] Stop: 06/26/22 20:59 Last Admin: 05/29/22 21:17 Dose: 7.5 mg Miscellaneous (Carbohydrates For Hypoglycemia ) 15 - 30 gm PO UD PRN PRN Reason: Hypoglycemia Protocol Stop: 06/17/22 23:35 Miscellaneous Information (Pharmacy Glycemic Mgmt Consult) 1 each N/A UD PRN PRN Reason: Consult Stop: 06/18/22 22:55 Miscellaneous Information (Pharmacist Discharge Med Rec Consult) 1 each N/A UD PRN PRN Reason: Consult Stop: 06/22/22 12:44 Multivitamins (Multivitamin Tab) 1 tab PO QAM [facility] Stop: 06/27/22 08:59 Last Admin: 05/30/22 08:48 Dose: 1 tab Pantoprazole Sodium (Pantoprazole 40 Mg Tab) 40 mg PO BID [facility] Stop: 06/24/22 20:59 Last Admin: 05/30/22 08:49 Dose: 40 mg Potassium Chloride (Potassium Chloride Pwd 20 Meq Pack) 20 meq PO BID TIERA Stop: 06/26/22 08:59 Last Admin: 05/30/22 08:49 Dose: 20 meq Raspberry (Raspberry Syrup 5 Ml Udp) 5 ml PO Q6 TIERA Stop: 06/04/22 23:59 Last Admin: 05/30/22 05:36 Dose: Not Given Vancomycin HCl (Vancomycin Hcl 500 Mg/10 Ml Soln) 500 mg PO Q6 TIERA Stop: 06/04/22 23:59 Last Admin: 05/30/22 05:36 Dose: 500 mg
[2022-05-30] MEDS: DAPTOmycin 700 MG in SYRINGE 0 ML IV SCH (12:51)
[2022-05-30] MEDS: MIRTAZAPINE TAB 15 MG TAB PO SCH (20:32)
[2022-05-30] MEDS: LANTUS PER UNIT CHARGE SQ SCH (21:50)
[2022-05-31] MEDS: RASPBERRY SYRUP 5 ML UDP PO SCH ×4 (00:15→17:17)
[2022-05-31] MEDS: VANCOMYCIN HCL 500 MG/10 ML SOLN PO SCH ×4 (00:15→17:17)
[2022-05-31 06:41] LABS: Hematocrit (blood only) 31.1 % (37.0-47.0); Hemoglobin 10.4 g/dl (12.0-16.0); Mean Corpuscular Hemoglobin 27.5 pg (25.0-34.0); Mean Corpuscular Hgb Conc 33.4 g/dL (32.0-36.0); Mean Corpuscular Volume 82.3 fL (80.0-100.0); Mean Platelet Volume 9.7 fL (9.4-12.4); Platelet Count 391 K/uL (130-400); RDW Coefficient of Variation 18.6 % (11.5-14.5); RDW Standard Deviation 48.2 fL (36.4-46.3); Red Blood Count 3.78 M/uL (4.20-5.40); White Blood Count 22.71 K/ul (4.8-10.8)
[2022-05-31 07:30] LABS: BUN Creatinine Ratio 23.2 (10-20); Calcium 8.2 mg/dl (8.5-10.1); Creatinine Clr Calc Pharmacy 73.2 ml/min; Est GFR (African American) 85.2 ml/min; Est GFR (Non-African American) 73.5 ml/min; Magnesium 1.7 mg/dl (1.7-2.4); Phosphorus 2.8 mg/dl (2.5-4.9); Potassium 3.8 mmol/L (3.5-5.1)
--- NOTE | 2022-05-31 08:00 | Hospitalist Progress Note ---
Date of Service May 31, 2022 Assessment & Plan (1) Septic shock: (2) GI bleed: (3) Respiratory failure with hypoxia: (4) MARIA ELENA (acute kidney injury): (5) Hyponatremia: (6) DM2 (diabetes mellitus, type 2): (7) HLD (hyperlipidemia): (8) HTN (hypertension): (9) H/O: CVA (cerebrovascular accident): (10) Neurogenic bladder: (11) Paroxysmal atrial fibrillation: (12) Depression with anxiety: Plan 66 yo F, resident at [facility] with PMH of CVA with residual right-sided weakne ss, chronic indwelling Milan catheter for neurogenic bladder, morbid obesity, HTN, GI bleeds, DM2, chronic hyponatremia, PAF on Eliquis was brought to the ED 05/18 from [facility] for concerns of encephalopathy and reported bloody bowel movements. She was noted to be obtunded, mildly hypothermic and with dried blood in oral cavity at ED and hence was intubated. She reportedly had another bowel movement in the ED that was dark maroon without clots. She is being managed for the following: C. difficile colitis Norovirus Ac Gastroenteritis Gram-positive bacteremia: 05/19 TT-echo neg for vegetation, GEORGETTE 05/20 - lesions on mitral leaflets, mass present in LA appendage - calcifications vs vegetations. repeat bl cx 05/20 - NG 5 days. Septic shock likely secondary to above Likely metabolic encephalopathy: resolved Concern of endocarditis: ID on board. Ischemic Stroke: allergic to aspirin, rosuvastatin on hold d/t being on Dapto, GLP-1 agonist vs SGLT 2 inhibitor (defer to PCP office once pt out of acute illness). Patient presents with altered mentation and was intubated due to AMS/dried blood in oral cavity Due to persistent hypotension, started on pressors at admission. Milan catheter was changed in the ED. Admitting labs with WBC of 32.5 K, hemoglobin of 11.8, AG metabolic acidosis in ABG. Pro-Maxim and LA elevated. Respiratory BioFire panel was negative. Admitting CXR with mild pulmonary vascular congestion. Admitting CTAP and CT chest: Nonspecific proctocolitis extending from the mid transverse colon distally. Small to moderate right pleural effusion with mild right basilar atelectasis. Admitting CT head with no new acute findings. 05/21 MRI Brain: Multiple small acute infarcts (b/l occipital lobes/left basal ganglia/other areas), likely embolic etiology. No hge or mass effect. 05/21 EEG: No epileptiform discharges or electrographic seizures were seen. 05/22 GEORGETTE: Mass present in left atrial appendage. Multiple focal, nonmobile lesions present on both mitral leaflets s/o calcification vs vegetation. 05/18 blood culture: CONS not lugdunensis 05/20 Bl Cx: NG5D Currently on midodrine, vancomycin p.o. 05/25 Procal wnl. Taper midodrine as able. ID on board: Vanco iv changed to dapto 05/24 --- 6 weeks treatment (through 07/01/22); c/w vanc po for C diff colitis. 05/24 cpk 22, labs weekly while on iv antibiotic, PICC line consent obtained and ordered. however not able to placed PICC, therefore US-guided line was placed (05/30/2022). GI bleed: Had dark-colored stool in the ED, admitting hemoglobin of 11.8, on Protonix po bid, hemoglobin stable around 11.5, labs in AM. c/w eliquis. per RN, miky alonzo. MARIA ELENA: Admitting creatinine of 4.06, secondary to septic shock, resolved. Type II NSTEMI: Troponin elevated likely secondary to acute illness, EKG and echo done/reviewed. SVT: cardio on board, on amiodarone and metoprolol. DC sotalol per d/w cardiology Iatrogenic volume overload: being diuresed, cardio on board, iv lasix today, c/w FR 1500 ml. Unfortunately diuresis difficult d/t borderline BP, discussed w/ cardiology. Prognosis remains guarded. A-fib on Eliquis: c/w home eliquis, pt on amio and metoprolol per cardio Electrolyte abnormalities: Including hyponatremia, MARIA ELENA, metabolic acidosis. improving. Sacral wound, stage II: not sure if POA, pt chronically on bed per [facility]. WOCN. Poor appetite/h/o anxiety and depression: Remeron started. DMII: History of, sliding scale. CVA, Neurogenic bladder and anxiety: -home meds as able. -urinary catheter changed in the ER DVT PPx: Eliquis Code Status: DNR/DNI Dispo: PICC line consent obtained/order placed, pending diuresis, expect dc in 2-3 days. Will need salvage determiner Dapto (see above). 05/24: Dr. Lauren - Received a call back from the nurse at [facility] who also took care of Lula. The RN states that Lula was not on any antibiotic in the last 2 months, she stays at the bed 100% of the time, weak on right side, oriented and completely appropriate at baseline, also inquired about allergies listed to atorvastatin and aspirin. On both of these drugs only cutaneous reaction is listed as an allergy on their side and they know no more than this about her allergies to aspirin and statin. Once the patient recovers better, will try to get more history from the patient herself. Admission and Anticipated Discharge Date Admission Date: May 18, 2022 Subjective Patient is seen in follow up of septic shock, GI bleed, C. difficile, norovirus, MARIA ELENA, electrolyte abnormalities. After admission found to have ischemic stroke and concern for infective endocarditis. Patient lying in bed, on RA, awake, alert, oriented Pt denies pain. Denies fever, chills, chest pain, shortness of breath. feels tired and weak. No abd. pain. PICC line consent obtained and ordered however not able to be placed, US-guided was placed. Cardiology, ID, palliative medicine following. Diuresis difficult d/t borderline BP. Prognosis remains guarded. WBC up at 22K Per RNpt had a soft/liquid stool Fever documented in error - confirmed w/ viticulturist of Systems Review of Systems: All systems reviewed & are unremarkable except as noted in Subjective Physical Exam Physical Exam: General: Awake , alert, oriented x 3, answers appropriately, speech clear. chronically ill appearing obese F, on RA HEENT: NC/AT. + thick neck, central line placed Heart: RRR, no murmur Lower extremity: No erythema, 2+ pitting edema (improved) Respiratory: on RA, clear to auscultation w/ some crackles Abdomen: soft, obese, + bowel sounds, nontender : Urinary catheter with yellow/melanie urine noted Neuro/psych: awake and alert, follows commands, speech fluent Sacral stage II ulcer. does not look infected. Results & Data Results & Data ([facility]) Vital Signs (Past 12 Hours) Vital Signs Temp Pulse Pulse Resp BP Pulse Ox O2 Del Method 05/31/22 07:46 38.6 C H 90 20 107/72 95 Room Air 05/31/22 04:26 37.0 C 89 20 134/74 95 Room Air 05/31/22 02:14 36.4 C L 89 18 108/70 94 Room Air 05/31/22 00:16 95 H Laboratory Results 05/31/22 05/31/22 05/30/22 Range/Units 06:00 06:00 20:55 WBC 22.71 H (4.8-10.8) K/ul RBC 3.78 L (4.20-5.40) M/uL Hgb 10.4 L (12.0-16.0) g/dl Hct 31.1 L (37.0-47.0) % MCV 82.3 (80.0-100.0) fL MCH 27.5 (25.0-34.0) pg MCHC 33.4 (32.0-36.0) g/dL RDW Std Deviation 48.2 H (36.4-46.3) fL RDW Coeff of Nelson 18.6 H (11.5-14.5) % Plt Count 391 (130-400) K/uL MPV 9.7 (9.4-12.4) fL Sodium 137 (136-145) mmol/L Potassium 3.8 (3.5-5.1) mmol/L Chloride 105 (98-107) mmol/L Carbon Dioxide 24 (21-32) mmol/L Anion Gap 8 (3-11) BUN 19 (6-23) mg/dl Creatinine 0.82 (0.6-1.2) mg/dl Est Cr Clr Drug Dosing 73.2 ml/min Est GFR ( Amer) 85.2 ml/min Est GFR (Non-Af Amer) 73.5 ml/min BUN/Creatinine Ratio 23.2 H (10-20) Glucose 157 H (70-99(Fasting)) mg/dl POC Glucose 140 H (70-99) mg/dl Calcium 8.2 L (8.5-10.1) mg/dl Phosphorus 2.8 (2.5-4.9) mg/dl Magnesium 1.7 (1.7-2.4) mg/dl 05/30/22 05/30/22 05/30/22 Range/Units 16:04 12:00 07:59 WBC (4.8-10.8) K/ul RBC (4.20-5.40) M/uL Hgb (12.0-16.0) g/dl Hct (37.0-47.0) % MCV (80.0-100.0) fL MCH (25.0-34.0) pg MCHC (32.0-36.0) g/dL RDW Std Deviation (36.4-46.3) fL RDW Coeff of Nelson (11.5-14.5) % Plt Count (130-400) K/uL MPV (9.4-12.4) fL Sodium (136-145) mmol/L Potassium (3.5-5.1) mmol/L Chloride (98-107) mmol/L Carbon Dioxide (21-32) mmol/L Anion Gap (3-11) BUN (6-23) mg/dl Creatinine (0.6-1.2) mg/dl Est Cr Clr Drug Dosing ml/min Est GFR ( Amer) ml/min Est GFR (Non-Af Amer) ml/min BUN/Creatinine Ratio (10-20) Glucose (70-99(Fasting)) mg/dl POC Glucose 149 H 127 H 93 (70-99) mg/dl Calcium (8.5-10.1) mg/dl Phosphorus (2.5-4.9) mg/dl Magnesium (1.7-2.4) mg/dl Medications Administered Current Inpatient Medications Amiodarone HCl (Amiodarone 200 Mg Tab) 400 mg PO BID [facility] Stop: 06/22/22 20:59 Last Admin: 05/30/22 20:31 Dose: 400 mg Apixaban (Apixaban 5 Mg Tablet) 5 mg PO BID [facility] Stop: 06/25/22 20:59 Last Admin: 05/30/22 20:30 Dose: 5 mg Dextrose (Dextrose 50% 50 Ml Syringe) 25 - 50 ml IV UD PRN; Protocol PRN Reason: Hypoglycemia Protocol Stop: 06/17/22 23:35 Furosemide (Furosemide 40 Mg Tab) 40 mg PO DAILY [facility] Stop: 06/25/22 08:59 Last Admin: 05/28/22 08:31 Dose: 40 mg Furosemide (Furosemide 40 Mg/4 Ml Vial) 40 mg IV QAM [facility] Stop: 06/28/22 08:59 Last Admin: 05/30/22 08:47 Dose: 40 mg Glucagon (Glucagon For Inj 1 Mg Vial) 1 mg SQ UD PRN; Protocol PRN Reason: Hypoglycemia Protocol Stop: 06/17/22 23:35 Glucose (Glucose 10 Tab/Tube) 4 - 8 tab PO UD PRN; Protocol PRN Reason: Hypoglycemia Treatment Stop: 06/17/22 23:35 Glucose (Glucose 40% Gel 15 Gm Tube) 15 - 30 gm PO UD PRN; Protocol PRN Reason: Hypoglycemia Protocol Stop: 06/17/22 23:35 Daptomycin 700 mg/ Syringe 14 mls @ 7 mls/min IV Q24H [facility]; Protocol Stop: 07/05/22 11:59 Last Admin: 05/30/22 12:51 Dose: 7 mls/min Metronidazole (Flagyl) 500 mg in 100 mls @ 100 mls/hr IV Q8H [facility] Stop: 06/10/22 07:59 Magnesium Sulfate/Dextrose (Magnesium Sulfate / D5w) 1 gm in 100 mls @ 50 mls/hr IV ONE ONE Stop: 05/31/22 09:57 Insulin Aspart (Insulin Aspart Per Unit) 0 units SC [facility] Stop: 06/18/22 22:59 Last Admin: 05/30/22 21:50 Dose: Not Given Insulin Glargine (Lantus Per Unit Charge) 0 units SQ [facility]; Protocol Stop: 06/29/22 20:59 Last Admin: 05/30/22 21:50 Dose: 5 units Magnesium Oxide (Magnesium Oxide 400 Mg Tab) 400 mg PO BID [facility] Stop: 06/26/22 08:59 Last Admin: 05/30/22 20:31 Dose: 400 mg Metoprolol Succinate (Metoprolol Succ 25mg Ext Rel Tab) 12.5 mg PO BID [facility] Stop: 06/27/22 20:59 Last Admin: 05/30/22 20:31 Dose: Not Given Midodrine (Midodrine Hcl 2.5 Mg Tab) 5 mg PO DAILY@0700 [facility] Stop: 06/26/22 02:24 Last Admin: 05/30/22 08:46 Dose: 5 mg Mirtazapine (Mirtazapine Tab 15 Mg Tab) 7.5 mg PO [facility] Stop: 06/26/22 20:59 Last Admin: 05/30/22 20:32 Dose: 7.5 mg Miscellaneous (Carbohydrates For Hypoglycemia ) 15 - 30 gm PO UD PRN PRN Reason: Hypoglycemia Protocol Stop: 06/17/22 23:35 Miscellaneous Information (Pharmacy Glycemic Mgmt Consult) 1 each N/A UD PRN PRN Reason: Consult Stop: 06/18/22 22:55 Miscellaneous Information (Pharmacist Discharge Med Rec Consult) 1 each N/A UD PRN PRN Reason: Consult Stop: 06/22/22 12:44 Multivitamins (Multivitamin Tab) 1 tab PO QAM [facility] Stop: 06/27/22 08:59 Last Admin: 05/30/22 08:48 Dose: 1 tab Pantoprazole Sodium (Pantoprazole 40 Mg Tab) 40 mg PO BID [facility] Stop: 06/24/22 20:59 Last Admin: 05/30/22 20:30 Dose: 40 mg Potassium Chloride (Potassium Chloride Pwd 20 Meq Pack) 20 meq PO BID [facility] Stop: 06/26/22 08:59 Last Admin: 05/30/22 20:32 Dose: 20 meq Raspberry (Raspberry Syrup 5 Ml Udp) 5 ml PO Q6 [facility] Stop: 06/04/22 23:59 Last Admin: 05/31/22 05:10 Dose: Not Given Vancomycin HCl (Vancomycin Hcl 500 Mg/10 Ml Soln) 500 mg PO Q6 [facility] Stop: 06/04/22 23:59 Last Admin: 05/31/22 05:10 Dose: 500 mg
[2022-05-31] MEDS ORDERED: MAGNESIUM SULFATE / D5W 1 GM/100 ML BAG IV ONE (08:30)
--- NOTE | 2022-05-31 08:31 | XRay Report ---
XR chest 1V portable CLINICAL HISTORY: Fever. COMPARISON STUDY: Chest radiograph May 21, [address] May 18, 2022. FINDINGS: The lines and tubes have been removed. Moderate right and small left pleural effusions are noted. The right pleural effusion may have increased in size since prior exam. Cardiomegaly is unchan ged. Patient is rotated. Asymmetric right lung hazy opacity is present. There is mild left basilar op acity. IMPRESSION: 1. Moderate right and small left pleural effusions. Asymmetric right lung and left basilar opacity co uld be due to atelectasis. An infectious process could appear similar. 2. Cardiomegaly. Pulmonary vascular congestion. ACT 112: Negative or not required by law. Electronically signed by: Carlos Sharma M.D. 05/31/2022 8:30 AM
[2022-05-31] MEDS: MIDODRINE HCL 2.5 MG TAB PO SCH (08:46)
[2022-05-31] MEDS: metroNIDAZOLE 500 MG/100 ML BAG IV SCH ×2 (08:51→17:17)
[2022-05-31] MEDS: AMIODARONE 200 MG TAB PO SCH ×2 (08:54→22:13)
[2022-05-31] MEDS: APIXABAN 5 MG TABLET PO SCH ×2 (08:54→21:50)
[2022-05-31] MEDS: FUROSEMIDE 40 MG/4 ML VIAL IV SCH (08:54)
[2022-05-31] MEDS: METOPROLOL SUCC 25MG EXT REL TAB PO SCH ×2 (08:55→20:26)
[2022-05-31] MEDS: MULTIVITAMIN TAB PO SCH (08:55)
[2022-05-31] MEDS: POTASSIUM CHLORIDE PWD 20 MEQ PACK PO SCH ×2 (08:56→21:51)
[2022-05-31] MEDS: PANTOprazole 40 MG TAB PO SCH ×2 (08:56→21:50)
[2022-05-31] MEDS: INSULIN ASPART PER UNIT SC SCH ×4 (09:05→21:51)
--- NOTE | 2022-05-31 10:15 | Cardiology Progress Note ---
Date of Service May 31, 2022 Assessment & Plan (1) Ischemic stroke: (2) Palliative care encounter: (3) Severe sepsis with septic shock: (4) Altered mental status: (5) Acute respiratory failure with hypoxia: (6) Acute renal failure: (7) High anion gap metabolic acidosis: (8) Septic shock: (9) H/O: CVA (cerebrovascular accident): (10) HTN (hypertension): (11) Paroxysmal atrial fibrillation: (12) Endocarditis: Plan Medically complex 66 year old admitted for sepsis, bacteremia, hypotension, CVA, and complicated by GI bleed. She required several days of mechanical ventilation with pressors, but now off therapy and extubated. Cardio was asked to evaluate again for recurrent atrial arrhythmias. Patient has a history of PAF, was previously on sotalol and diltiazem as outpatient. These were stopped on admission with sepsis, hypotension. Due to recurrent atrial arrhythmias, IV amiodarone was initiated during hospitalization and then transitioned to oral amiodarone. Currently taking 400 mg BID, and anticipate reducing dose to 200 mg BID on discharge for 1 month, then 200 mg daily. Metoprolol 12.5 mg BID was added. She is tolerating and afib episodes are shorter in duration, and less frequent. Continue Eliquis for stroke prophylaxis. On prior echo/GEORGETTE earlier this admission, he had Three separate lesions present that per interpretation, may represent endocarditis: mitral valve, aortic valve and left atrial appendage Given clinical context the recommendation was to continue to treating with IV antibiotics for 6 weeks. ID following as well. Palliative care also consulted this admission given multiple comorbidities. Would not be a surgical candidate for intervention Upon re-evaluation this week, it was noted she was up 13 kg since admission, likely due to aggressive fluid resuscitation in the ICU. Oral furosemide was resumed but no significant improvement and then transitioned to IV furosemide. Dose is limited due to hypotension. diffuse edema/anasaraca slowly improving. Good diuresis over the last 24 hours and weight trending down. Eventually, would transition back to oral furosemide to maintain fluid status. Supplement potassium. Monitor I+O's. Unable to do standing scale, but monitor bed weights. Overall, poor prognosis. Will need SNF on discharge. Would consider hospice. Case discussed with primary hospitalist today, Dr. Lopez. Case with Dr. Sierra. No further cardiac testing recommended. Ongoing recommendations provided Will sign off. Please call electronic video games servicer [employer] ticket seller with additional questions or concerns. Admission and Anticipated Discharge Date Admission Date: May 18, 2022 Supervising Physician Co-Signing Physician Notes I have reviewed the advance practitioner documentation and agree. I saw and evaluated the patient on the date of service referenced in the note and have performed a medically appropriate history and or exam. I agree with the plan as outlined. Subjective Patient resting in bed. voices no complaints. Denies chest pain or SOB. Weight down about 2 kg since yesterday with diuresis. Good outputs per nurse. Review of Systems Review of Systems: All systems reviewed & are unremarkable except as noted in HPI & below Physical Exam Constitutional: WD/WN, vitals as above + obese; no acute distress Neck: + thick neck Respiratory: no respiratory distress Auscultation: + diminished lung sounds and + rales Cardiovascular: Rate/Rhythm: regular rate and regular rhythm Heart Sounds: no murmur (distant heart sounds) Extremities: + edema (2+ LE edema to thighs) Results & Data ([facility]) Vital Signs (Past 12 Hours) Vital Signs Temp Pulse Pulse Resp BP Pulse Ox O2 Del Method 05/31/22 08:00 87 05/31/22 08:36 36.6 C 05/31/22 07:46 36.8 C 90 20 107/72 95 Room Air 05/31/22 04:26 37.0 C 89 20 134/74 95 Room Air 05/31/22 02:14 36.4 C L 89 18 108/70 94 Room Air 05/31/22 00:16 95 H Laboratory Results CBC 05/31/22 Range/Units 06:00 WBC 22.71 H (4.8-10.8) K/ul RBC 3.78 L (4.20-5.40) M/uL Hgb 10.4 L (12.0-16.0) g/dl Hct 31.1 L (37.0-47.0) % Plt Count 391 (130-400) K/uL Comprehensive Metabolic Panel 05/31/22 Range/Units 06:00 Sodium 137 (136-145) mmol/L Potassium 3.8 (3.5-5.1) mmol/L Chloride 105 (98-107) mmol/L Carbon Dioxide 24 (21-32) mmol/L BUN 19 (6-23) mg/dl Creatinine 0.82 (0.6-1.2) mg/dl Glucose 157 H (70-99(Fasting)) mg/dl Calcium 8.2 L (8.5-10.1) mg/dl Intake and Output 05/30/22 05/31/22 05/31/22 22:59 06:59 14:59 Intake Total 100 / 640 100 / 640 Output Total 200 / 951 200 / 951 Balance -100 / -311 -100 / -311 Intake: Oral 100 / 640 100 / 640 Output: Urine Amount (Catheter) 200 / 950 200 / 950 Milan/Indwelling 200 / 950 200 / 950 Other: Weight 102.5 kg 101.5 kg Weight Measurement Method Built in [facility] Diagnostic Findings Telemetry reviewed: NSR without recurrent arrhythmias. Medications Administered Current Inpatient Medications Amiodarone HCl (Amiodarone 200 Mg Tab) 400 mg PO BID [facility] Stop: 06/22/22 20:59 Last Admin: 05/31/22 08:54 Dose: 400 mg Apixaban (Apixaban 5 Mg Tablet) 5 mg PO BID [facility] Stop: 06/25/22 20:59 Last Admin: 05/31/22 08:54 Dose: 5 mg Dextrose (Dextrose 50% 50 Ml Syringe) 25 - 50 ml IV UD PRN; Protocol PRN Reason: Hypoglycemia Protocol Stop: 06/17/22 23:35 Furosemide (Furosemide 40 Mg Tab) 40 mg PO DAILY [facility] Stop: 06/25/22 08:59 Last Admin: 05/28/22 08:31 Dose: 40 mg Furosemide (Furosemide 40 Mg/4 Ml Vial) 40 mg IV QAM [facility] Stop: 06/28/22 08:59 Last Admin: 05/31/22 08:54 Dose: 40 mg Glucagon (Glucagon For Inj 1 Mg Vial) 1 mg SQ UD PRN; Protocol PRN Reason: Hypoglycemia Protocol Stop: 06/17/22 23:35 Glucose (Glucose 10 Tab/Tube) 4 - 8 tab PO UD PRN; Protocol PRN Reason: Hypoglycemia Treatment Stop: 06/17/22 23:35 Glucose (Glucose 40% Gel 15 Gm Tube) 15 - 30 gm PO UD PRN; Protocol PRN Reason: Hypoglycemia Protocol Stop: 06/17/22 23:35 Daptomycin 700 mg/ Syringe 14 mls @ 7 mls/min IV Q24H [facility]; Protocol Stop: 07/05/22 11:59 Last Admin: 05/30/22 12:51 Dose: 7 mls/min Metronidazole (Flagyl) 500 mg in 100 mls @ 100 mls/hr IV Q8H [facility] Stop: 06/10/22 08:29 Last Admin: 05/31/22 08:51 Dose: 100 mls/hr Magnesium Sulfate/Dextrose (Magnesium Sulfate / D5w) 1 gm in 100 mls @ 50 mls/hr IV 0830 ONE Stop: 05/31/22 10:29 Last Admin: 05/31/22 08:50 Dose: 50 mls/hr Insulin Aspart (Insulin Aspart Per Unit) 0 units SC [facility] Stop: 06/18/22 22:59 Last Admin: 05/31/22 09:05 Dose: 4 units Insulin Glargine (Lantus Per Unit Charge) 0 units SQ [facility]; Protocol Stop: 06/29/22 20:59 Last Admin: 05/30/22 21:50 Dose: 5 units Magnesium Oxide (Magnesium Oxide 400 Mg Tab) 400 mg PO BID [facility] Stop: 06/26/22 08:59 Last Admin: 05/30/22 20:31 Dose: 400 mg Metoprolol Succinate (Metoprolol Succ 25mg Ext Rel Tab) 12.5 mg PO BID [facility] Stop: 06/27/22 20:59 Last Admin: 05/31/22 08:55 Dose: 12.5 mg Midodrine (Midodrine Hcl 2.5 Mg Tab) 5 mg PO DAILY@0700 [facility] Stop: 06/26/22 02:24 Last Admin: 05/31/22 08:46 Dose: 5 mg Mirtazapine (Mirtazapine Tab 15 Mg Tab) 7.5 mg PO [facility] Stop: 06/26/22 20:59 Last Admin: 05/30/22 20:32 Dose: 7.5 mg Miscellaneous (Carbohydrates For Hypoglycemia ) 15 - 30 gm PO UD PRN PRN Reason: Hypoglycemia Protocol Stop: 06/17/22 23:35 Miscellaneous Information (Pharmacy Glycemic Mgmt Consult) 1 each N/A UD PRN PRN Reason: Consult Stop: 06/18/22 22:55 Miscellaneous Information (Pharmacist Discharge Med Rec Consult) 1 each N/A UD PRN PRN Reason: Consult Stop: 06/22/22 12:44 Multivitamins ([facility]itamin Tab) [facility] [place]: 06/27/22 08:59 Last Admin: 05/31/22 08:55 Dose: 1 tab Pantoprazole Sodium (Pantoprazole 40 Mg Tab) 40 mg PO BID [facility] Stop: 06/24/22 20:59 Last Admin: 05/31/22 08:56 Dose: 40 mg Potassium Chloride (Potassium Chloride Pwd 20 Meq Pack) 20 meq PO BID [facility] Stop: 06/26/22 08:59 Last Admin: 05/31/22 08:56 Dose: 20 meq Raspberry (Raspberry Syrup 5 Ml Udp) 5 ml PO Q6 [facility] Stop: 06/04/22 23:59 Last Admin: 05/31/22 05:10 Dose: Not Given Vancomycin HCl (Vancomycin Hcl 500 Mg/10 Ml Soln) 500 mg PO Q6 [facility] Stop: 06/04/22 23:59 Last Admin: 05/31/22 05:10 Dose: 500 mg
[2022-05-31] MEDS: DAPTOmycin 700 MG in SYRINGE 0 ML IV SCH (12:34)
--- NOTE | 2022-05-31 13:50 | Pharmacy Report ---
Pharmacy Glycemic Short Note 2 - Date of Service May 31, 2022 - Glycemic Short BSG Results (Last 24 hours): 05/30/22 05/30/22 05/31/22 16:04 20:55 06:00 Glucose 157 H POC Glucose 149 H 140 H 05/31/22 05/31/22 08:00 11:54 Glucose POC Glucose 147 H 153 H OUTPATIENT ANTIDIABETIC REGIMEN: * Lantus 15 units SQ HS * Sitagliptin 100mg PO daily HbA1C: 5.6% (03/20/22) ASSESSMENT: 05/31/22 * BSGs yesterday were [phone] mg/dL. Patient received 9 units of insulin (5 units of basal and 4 units of bolus) * Fasting today is 147 mg/dL. * Yesterday, basal was transitioned back to HS dosing (as patient does at home). There will be a scale for this evening based upon BSGs. Patient's diet appears to have improved. * Continue Novolog. 05/29/21 * BSGs yesterday were [phone] mg/dL and patient received 9 units of insulin (8 units of Lantus and 1 unit of Novolog). * BSGs today are 141-145 mg/dL. * Continue current regimen. 05/27/22: * BSGs well-controlled yesterday, ranging 86-131 mg/dL. However, nursing notes report patient refusal to eat. * No insulin administered yesterday. Will hold off on basal this morning until PO intake can be further assessed. * Lunch BSG of 169 mg/dL with 16 g of documented carbs - will restart basal now with lunchtime 05/24/22 * Patient's BSGs yesterday were [phone] mg/dL. Patient received 24 units of insulin (10 units of basal and 14 units of bolus). * Patient extubated and tube feeds stopped. Hydrocortisone 50 mg IV daily ongoing. Patient remains on heparin infusion. For antibiotics, she is on IV daptomycin, PO vancomycin, and IV flagyl. * BSGs today are 126-127 mg/dL. * Fasting trending downwards and tube feeds stopped. Decrease Lantus to 8 units (20% reduction). * Continue Novolog. 05/23: * Goal range 140-180 mg/dL for ICU status patient. BSG's in lower end of goal range yesterday, now trending up to upper end of goal range due to initiation of steroids yesterday * Patient now extubated as of this AM, and tubefeeds on hold (previously only running at 10 mL/hr ~ 3 g CHO q4h - not anticipated to have a significant impact on BSG's). Speech assessment pending. Steroids tapering by half. * Anticipated that increased stressors leading to rise in BSG's will now dissipate and BSG's will fall again without intervention. Will not change basal nor bolus regimen at this time. Background: * Pt is a 66 YO female admitted from a facility with severe sepsis and septic shock. She is currently critically ill, intubated, sedated, and requiring vasopressor support. History of DM2 - pharmacy consulted to assist with glycemic management. * Initiated on an insulin drip yesterday -- discontinued last evening due to hypokalemia (K-2.5). Lantus 20 units SQ X 1 given and Novolog q4 (CF- 25mg/dL/unit) initiated. * BSGs elevated since discontinuation of infusion last night: [phone]/dL. * She remains intubated and on pressors. NPO. Continues on IV antibiotics and PO vanc. SCr down-trending. * Novolog parameters tightened this AM to CF 20mg/dL/unit q4. Given BSGs have down-trended throughout the day today ([phone]/dL), will continue with q4 Novolog and an HS Lantus scale tonight. If BSGs rebound into 300s and potassium WNL, would consider resuming insulin infusion for hyperglycemia in setting of critical illness. PLAN FOR INPATIENT GLYCEMIC CONTROL: * Hold outpatient oral diabetes medications * Basal insulin * Lantus 8 units SC HS (5 units if BSG < 120 mg/dL) * Bolus insulin * NovoLog per scale ACHS or Q4hrs while NPO * Goal Range: Low 110 mg/dL - High 140 mg/dL * Correction Factor: 25 mg/dL/unit * Nutritional / Prandial insulin per carb ratio of 1 unit per 8 grams CHO consumed
[2022-05-31] MEDS ORDERED: MIDODRINE HCL 2.5 MG TAB PO STA (19:42)
--- NOTE | 2022-05-31 20:49 | XRay Report ---
XR chest 1V portable HISTORY: 66 years-old Female hypoxia acute hypoxia COMPARISON: 05/31/2022 at 8:09 AM TECHNIQUE: Semierect AP view of the chest FINDINGS: Limited exam secondary to positioning. Cardiomegaly with pulmonary vascular congestion. Moderate righ t and small left pleural effusions with right greater left bibasilar opacities. Progressively worsene d interstitial coarsening. Degenerative changes of the shoulders and spine. IMPRESSION: 1. Cardiomegaly with mild pulmonary edema. 2. Small left and moderate right pleural effusions with bibasilar consolidation. ACT 112: Negative or not required by law. The above report was generated using voice recognition software. It may contain grammatical, syntax o r spelling errors. Electronically signed by: Magan Singer M.D. 05/31/2022 8:48 PM
[2022-05-31] MEDS: MIRTAZAPINE TAB 15 MG TAB PO SCH (21:48)
[2022-05-31] MEDS: LANTUS PER UNIT CHARGE SQ SCH (22:02)
[2022-06-01] MEDS: RASPBERRY SYRUP 5 ML UDP PO SCH ×4 (01:33→18:02)
[2022-06-01] MEDS: VANCOMYCIN HCL 500 MG/10 ML SOLN PO SCH ×4 (01:33→18:02)
[2022-06-01] MEDS: metroNIDAZOLE 500 MG/100 ML BAG IV SCH ×3 (01:47→17:08)
[2022-06-01] MEDS: MIDODRINE HCL 2.5 MG TAB PO SCH (05:34)
[2022-06-01 06:11] LABS: Hematocrit (blood only) 27.3 % (37.0-47.0); Hemoglobin 9.1 g/dl (12.0-16.0); Mean Corpuscular Hemoglobin 27.8 pg (25.0-34.0); Mean Corpuscular Hgb Conc 33.3 g/dL (32.0-36.0); Mean Corpuscular Volume 83.5 fL (80.0-100.0); Mean Platelet Volume 9.7 fL (9.4-12.4); Platelet Count 316 K/uL (130-400); RDW Coefficient of Variation 18.5 % (11.5-14.5); RDW Standard Deviation 49.4 fL (36.4-46.3); Red Blood Count 3.27 M/uL (4.20-5.40); White Blood Count 23.95 K/ul (4.8-10.8)
--- NOTE | 2022-06-01 07:09 | Hospitalist Progress Note ---
Date of Service June 01, 2022 Assessment & Plan (1) Septic shock: (2) GI bleed: (3) Respiratory failure with hypoxia: (4) MARIA ELENA (acute kidney injury): (5) Hyponatremia: (6) DM2 (diabetes mellitus, type 2): (7) HLD (hyperlipidemia): (8) HTN (hypertension): (9) H/O: CVA (cerebrovascular accident): (10) Neurogenic bladder: (11) Paroxysmal atrial fibrillation: (12) Depression with anxiety: Plan 66 yo F, [facility] PMH of CVA with residual right-sided weakne ss, chronic indwelling Lovelace catheter for neurogenic bladder, morbid obesity, HTN, GI bleeds, DM2, chronic hyponatremia, PAF on Eliquis was brought to the ED 05/18 from [facility] for concerns of encephalopathy and reported bloody bowel movements. She was noted to be obtunded, mildly hypothermic and with dried blood in oral cavity at ED and hence was intubated. She reportedly had another bowel movement in the ED that was dark maroon without clots. She is being managed for the following: C. difficile colitis Norovirus Ac Gastroenteritis Gram-positive bacteremia: 05/19 TT-echo neg for vegetation, GEORGETTE 05/20 - lesions on mitral leaflets, mass present in LA appendage - calcifications vs vegetations. repeat bl cx 05/20 - NG 5 days. Septic shock likely secondary to above Likely metabolic encephalopathy: resolved Concern of endocarditis: ID on board. Ischemic Stroke: allergic to aspirin, rosuvastatin on hold d/t being on Dapto, GLP-1 agonist vs SGLT 2 inhibitor (defer to PCP office once pt out of acute illness). Patient presents with altered mentation and was intubated due to AMS/dried blood in oral cavity Due to persistent hypotension, started on pressors at admission. Lovelace catheter was changed in the ED. Admitting labs with WBC of 32.5 K, hemoglobin of 11.8, AG metabolic acidosis in ABG. Pro-Maxim and LA elevated. Respiratory BioFire panel was negative. Admitting CXR with mild pulmonary vascular congestion. Admitting CTAP and CT chest: Nonspecific proctocolitis extending from the mid transverse colon distally. Small to moderate right pleural effusion with mild right basilar atelectasis. Admitting CT head with no new acute findings. 05/21 MRI Brain: Multiple small acute infarcts (b/l occipital lobes/left basal ganglia/other areas), likely embolic etiology. No hge or mass effect. 05/21 EEG: No epileptiform discharges or electrographic seizures were seen. 05/22 GEORGETTE: Mass present in left atrial appendage. Multiple focal, nonmobile lesions present on both mitral leaflets s/o calcification vs vegetation. 05/18 blood culture: CONS not lugdunensis 05/20 Bl Cx: NG5D Currently on midodrine, vancomycin p.o. 05/25 Procal wnl. Taper midodrine as able. ID on board: Vanco iv changed to dapto 05/24 --- 6 weeks treatment (through 07/01/22); c/w vanc po for C diff colitis. 05/24 cpk 22, labs weekly while on iv antibiotic, PICC line consent obtained and ordered. however not able to placed PICC, therefore US-guided line was placed (05/30/2022). 06/01 WBC trending up now. Flagyl IV restarted. D/w RN - pt may need lovelace cath changed- will obtain UA when done. If any concerns will d/w ID. GI bleed: Had dark-colored stool in the ED, admitting hemoglobin of 11.8, on Protonix po bid, hemoglobin stable around 11.5, labs in AM. c/w eliquis. per RN, miky alonzo. MARIA ELENA: Admitting creatinine of 4.06, secondary to septic shock, resolved. Type II NSTEMI: Troponin elevated likely secondary to acute illness, EKG and echo done/reviewed. SVT: cardio on board, on amiodarone and metoprolol. DC sotalol per d/w cardiology Iatrogenic volume overload: being diuresed, cardio on board, iv lasix daily, c/w FR 1500 ml. Unfortunately diuresis difficult d/t borderline BP, discussed w/ cardiology. Prognosis remains guarded. A-fib on Eliquis: c/w home eliquis, pt on amio and metoprolol per cardio Electrolyte abnormalities: Including hyponatremia, MARIA ELENA, metabolic acidosis. improving. Sacral wound, stage II: not sure if POA, pt chronically on bed per [facility]. WOCN. Poor appetite/h/o anxiety and depression: Remeron started. DMII: History of, sliding scale. CVA, Neurogenic bladder and anxiety: -home meds as able. -urinary catheter changed in the ER DVT PPx: Eliquis Code Status: DNR/DNI Dispo: PICC line consent obtained/order placed, pending diuresis, expect dc in 2-3 days. Will need intermediate Dapto (see above). 05/24: Dr. Lauren - Received a call back from the nurse at [facility] who also took care of Lula. The RN states that Lula was not on any antibiotic in the last 2 months, she stays at the bed 100% of the time, weak on right side, oriented and completely appropriate at baseline, also inquired about allergies listed to atorvastatin and aspirin. On both of these drugs only cutaneous reaction is listed as an allergy on their side and they know no more than this about her allergies to aspirin and statin. Once the patient recovers better, will try to get more history from the patient herself. Admission and Anticipated Discharge Date Admission Date: May 18, 2022 Subjective Patient is seen in follow up of septic shock, GI bleed, C. difficile, norovirus, MARIA ELENA, electrolyte abnormalities. After admission found to have ischemic stroke and concern for infective endocarditis. Patient lying in bed, on RA, awake, alert, oriented Overnight patient became more hypotensive, and also became hypoxic requiring 2 L of oxygen. Midodrine, albumin was given. Currently laying in bed in no acute distress seems more awake and more interactive today. Denies any complaints. Pt denies pain. Denies fever, chills, chest pain, shortness of breath. No abd. pain. PICC line consent obtained and ordered however not able to be placed, US-guided was placed. Cardiology, ID, palliative medicine following. Diuresis difficult d/t borderline BP. Prognosis remains guarded. WBC up at 23.9K Discussed with RN, patient may need change of Lovelace catheter, will review when last time changed. Given her blood cell count going up, will recheck urine. Review of Systems Review of Systems: All systems reviewed & are unremarkable except as noted in Subjective Physical Exam Physical Exam: General: Awake , alert, oriented x 3, answers appropriately, speech clear. chronically ill appearing obese F, on RA HEENT: NC/AT. + thick neck, central line placed- removed Heart: RRR, no murmur Lower extremity: No erythema, 2+ pitting pedal edema (improved) Respiratory: on RA, clear to auscultation w/ some crackles Abdomen: soft, obese, + bowel sounds, nontender : Urinary catheter with yellow/melanie urine noted Neuro/psych: awake and alert, follows commands, speech fluent Sacral stage II ulcer. does not look infected. Results & Data Results & Data ([facility]) Vital Signs (Past 12 Hours) Vital Signs Temp Pulse Resp BP BP Pulse Ox O2 Del Method 06/01/22 03:27 36.6 C 95 H 18 96/63 L 96 Room Air 06/01/22 00:12 36.6 C 99 H 18 93/60 L 94 Room Air 05/31/22 22:34 88 96/59 L 05/31/22 19:25 93 Room Air 05/31/22 19:16 37.5 C 103 H 16 89/71 L 89 L Room Air O2 Flow Rate 06/01/22 03:27 06/01/22 00:12 05/31/22 22:34 05/31/22 19:25 2.0 05/31/22 19:16 Laboratory Results 06/01/22 06/01/22 06/01/22 Range/Units 08:07 05:17 05:17 WBC 23.95 H (4.8-10.8) K/ul RBC 3.27 L (4.20-5.40) M/uL Hgb 9.1 L (12.0-16.0) g/dl Hct 27.3 L (37.0-47.0) % MCV 83.5 (80.0-100.0) fL MCH 27.8 (25.0-34.0) pg MCHC 33.3 (32.0-36.0) g/dL RDW Std Deviation 49.4 H (36.4-46.3) fL RDW Coeff of Nelson 18.5 H (11.5-14.5) % Plt Count 316 (130-400) K/uL MPV 9.7 (9.4-12.4) fL Sodium 138 (136-145) mmol/L Potassium 3.7 (3.5-5.1) mmol/L Chloride 107 (98-107) mmol/L Carbon Dioxide 25 (21-32) mmol/L Anion Gap 6 (3-11) BUN 20 (6-23) mg/dl Creatinine 0.84 (0.6-1.2) mg/dl Est Cr Clr Drug Dosing 71.6 ml/min Est GFR ( Amer) 82.8 ml/min Est GFR (Non-Af Amer) 71.4 ml/min BUN/Creatinine Ratio 23.8 H (10-20) Glucose 106 H (70-99(Fasting)) mg/dl POC Glucose 108 H (70-99) mg/dl Lactate (0.4-2.0) mmol/L Calcium 8.1 L (8.5-10.1) mg/dl Phosphorus 3.0 (2.5-4.9) mg/dl Magnesium 1.9 (1.7-2.4) mg/dl 05/31/22 05/31/22 05/31/22 Range/Units 22:21 20:15 20:15 WBC (4.8-10.8) K/ul RBC (4.20-5.40) M/uL Hgb (12.0-16.0) g/dl Hct (37.0-47.0) % MCV (80.0-100.0) fL MCH (25.0-34.0) pg MCHC (32.0-36.0) g/dL RDW Std Deviation (36.4-46.3) fL RDW Coeff of Nelson (11.5-14.5) % Plt Count (130-400) K/uL MPV (9.4-12.4) fL Sodium (136-145) mmol/L Potassium (3.5-5.1) mmol/L Chloride (98-107) mmol/L Carbon Dioxide (21-32) mmol/L Anion Gap (3-11) BUN (6-23) mg/dl Creatinine (0.6-1.2) mg/dl Est Cr Clr Drug Dosing ml/min Est GFR ( Amer) ml/min Est GFR (Non-Af Amer) ml/min BUN/Creatinine Ratio (10-20) Glucose (70-99(Fasting)) mg/dl POC Glucose 92 (70-99) mg/dl Lactate 2.0 3.5 H* (0.4-2.0) mmol/L Calcium (8.5-10.1) mg/dl Phosphorus (2.5-4.9) mg/dl Magnesium (1.7-2.4) mg/dl 05/31/22 05/31/22 Range/Units 15:57 11:54 WBC (4.8-10.8) K/ul RBC (4.20-5.40) M/uL Hgb (12.0-16.0) g/dl Hct (37.0-47.0) % MCV (80.0-100.0) fL MCH (25.0-34.0) pg MCHC (32.0-36.0) g/dL RDW Std Deviation (36.4-46.3) fL RDW Coeff of Nelson (11.5-14.5) % Plt Count (130-400) K/uL MPV (9.4-12.4) fL Sodium (136-145) mmol/L Potassium (3.5-5.1) mmol/L Chloride (98-107) mmol/L Carbon Dioxide (21-32) mmol/L Anion Gap (3-11) BUN (6-23) mg/dl Creatinine (0.6-1.2) mg/dl Est Cr Clr Drug Dosing ml/min Est GFR ( Amer) ml/min Est GFR (Non-Af Amer) ml/min BUN/Creatinine Ratio (10-20) Glucose (70-99(Fasting)) mg/dl POC Glucose 193 H 153 H (70-99) mg/dl Lactate (0.4-2.0) mmol/L Calcium (8.5-10.1) mg/dl Phosphorus (2.5-4.9) mg/dl Magnesium (1.7-2.4) mg/dl Medications Administered Current Inpatient Medications Amiodarone HCl (Amiodarone 200 Mg Tab) 400 mg PO BID TIERA Stop: 06/22/22 20:59 Last Admin: 05/31/22 22:13 Dose: Not Given Apixaban (Apixaban 5 Mg Tablet) 5 mg PO BID TIERA Stop: 06/25/22 20:59 Last Admin: 05/31/22 21:50 Dose: 5 mg Dextrose (Dextrose 50% 50 Ml Syringe) 25 - 50 ml IV UD PRN; Protocol PRN Reason: Hypoglycemia Protocol Stop: 06/17/22 23:35 Furosemide (Furosemide 40 Mg Tab) 40 mg PO DAILY [facility] Stop: 06/25/22 08:59 Last Admin: 05/28/22 08:31 Dose: 40 mg Furosemide (Furosemide 40 Mg/4 Ml Vial) 40 mg IV QAM [facility] Stop: 06/28/22 08:59 Last Admin: 05/31/22 08:54 Dose: 40 mg Glucagon (Glucagon For Inj 1 Mg Vial) 1 mg SQ UD PRN; Protocol PRN Reason: Hypoglycemia Protocol Stop: 06/17/22 23:35 Glucose (Glucose 10 Tab/Tube) 4 - 8 tab PO UD PRN; Protocol PRN Reason: Hypoglycemia Treatment Stop: 06/17/22 23:35 Glucose (Glucose 40% Gel 15 Gm Tube) 15 - 30 gm PO UD PRN; Protocol PRN Reason: Hypoglycemia Protocol Stop: 06/17/22 23:35 Daptomycin 700 mg/ Syringe 14 mls @ 7 mls/min IV Q24H [facility]; Protocol Stop: 07/05/22 11:59 Last Admin: 05/31/22 12:34 Dose: 7 mls/min Metronidazole (Flagyl) 500 mg in 100 mls @ 100 mls/hr IV Q8H [facility] Stop: 06/10/22 08:29 Last Infusion: 06/01/22 02:45 Dose: Infused Insulin Aspart (Insulin Aspart Per Unit) 0 units SC ACHS [facility] Stop: 06/18/22 22:59 Last Admin: 05/31/22 21:51 Dose: Not Given Insulin Glargine (Lantus Per Unit Charge) 0 units SQ HS [facility]; Protocol Stop: 06/29/22 20:59 Last Admin: 05/31/22 22:02 Dose: 5 units Magnesium Oxide (Magnesium Oxide 400 Mg Tab) 400 mg PO BID [facility] Stop: 06/26/22 08:59 Last Admin: 05/30/22 20:31 Dose: 400 mg Metoprolol Succinate (Metoprolol Succ 25mg Ext Rel Tab) 12.5 mg PO BID [facility] Stop: 06/27/22 20:59 Last Admin: 05/31/22 20:26 Dose: Not Given Midodrine (Midodrine Hcl 2.5 Mg Tab) 5 mg PO DAILY@0700 [facility] Stop: 06/26/22 02:24 Last Admin: 06/01/22 05:34 Dose: 5 mg Mirtazapine (Mirtazapine Tab 15 Mg Tab) 7.5 mg PO HS [facility]ER[facility] Stop: 06/26/22 20:59 Last Admin: 05/31/22 21:48 Dose: Not Given Miscellaneous (Carbohydrates For Hypoglycemia ) 15 - 30 gm PO UD PRN PRN Reason: Hypoglycemia Protocol Stop: 06/17/22 23:35 Miscellaneous Information (Pharmacy Glycemic Mgmt Consult) 1 each N/A UD PRN PRN Reason: Consult Stop: 06/18/22 22:55 Miscellaneous Information (Pharmacist Discharge Med Rec Consult) 1 each N/A UD PRN PRN Reason: Consult Stop: 06/22/22 12:44 Multivitamins (Multivitamin Tab) 1 tab PO QAM [facility]ERA Stop: 06/27/22 08:59 Last Admin: 05/31/22 08:55 Dose: 1 tab Pantoprazole Sodium (Pantoprazole 40 Mg Tab) 40 mg PO BID [facility] Stop: 06/24/22 20:59 Last Admin: 05/31/22 21:50 Dose: 40 mg Potassium Chloride (Potassium Chloride Pwd 20 Meq Pack) 20 meq PO BID [facility] Stop: 06/26/22 08:59 Last Admin: 05/31/22 21:51 Dose: 20 meq Raspberry (Raspberry Syrup 5 Ml Udp) 5 ml PO Q6 [facility] Stop: 06/04/22 23:59 Last Admin: 06/01/22 05:33 Dose: 5 ml Vancomycin HCl (Vancomycin Hcl 500 Mg/10 Ml Soln) 500 mg PO Q6 [facility] Stop: 06/04/22 23:59 Last Admin: 06/01/22 05:33 Dose: 500 mg
[2022-06-01] MEDS: METOPROLOL SUCC 25MG EXT REL TAB PO SCH ×2 (08:57→21:05)
[2022-06-01] MEDS: PANTOprazole 40 MG TAB PO SCH ×2 (08:57→21:07)
[2022-06-01] MEDS: MULTIVITAMIN TAB PO SCH (08:57)
[2022-06-01] MEDS: AMIODARONE 200 MG TAB PO SCH ×2 (08:57→21:06)
[2022-06-01] MEDS: APIXABAN 5 MG TABLET PO SCH ×2 (08:57→21:07)
[2022-06-01] MEDS: FUROSEMIDE 40 MG/4 ML VIAL IV SCH (08:57)
[2022-06-01] MEDS: POTASSIUM CHLORIDE PWD 20 MEQ PACK PO SCH ×2 (08:57→21:05)
[2022-06-01 09:04] LABS: BUN Creatinine Ratio 23.8 (10-20); Calcium 8.1 mg/dl (8.5-10.1); Creatinine Clr Calc Pharmacy 71.6 ml/min; Est GFR (African American) 82.8 ml/min; Est GFR (Non-African American) 71.4 ml/min; Magnesium 1.9 mg/dl (1.7-2.4); Potassium 3.7 mmol/L (3.5-5.1)
[2022-06-01] MEDS: guaiFENesin 600 MG TABCR PO SCH ×2 (09:13→21:06)
[2022-06-01] MEDS: INSULIN ASPART PER UNIT SC SCH ×4 (09:20→21:24)
[2022-06-01] MEDS: DAPTOmycin 700 MG in SYRINGE 0 ML IV SCH (10:53)
[2022-06-01 15:08] LABS: Appearance Urine Cloudy (Clear); Bacteria Urine Automated Negative (Negative); Bilirubin Urine Negative (Negative); Blood Urine 3+ (Negative); Color Urine Yellow; Glucose Urine UA Negative (Negative); Ketones Urine Negative (Negative); Leukocyte Esterase Urine 3+ (Negative); Nitrite Urine Negative (Negative); Protein Urine 1+ (Negative); Specific Gravity Urine 1.012 (1.000-1.030); Urobilinogen Urine Negative (Negative); WBC Urine Automated >30 /hpf (0-5)
[2022-06-01] MEDS ORDERED: FUROSEMIDE 40 MG/4 ML VIAL IV ONE (20:51)
[2022-06-01] MEDS ORDERED: POTASSIUM CHLORIDE CRTAB 20 MEQ TABCR PO STA (20:52)
[2022-06-01] MEDS: MIRTAZAPINE TAB 15 MG TAB PO SCH (21:06)
[2022-06-01] MEDS: LANTUS PER UNIT CHARGE SQ SCH (21:35)
[2022-06-02] MEDS: VANCOMYCIN HCL 500 MG/10 ML SOLN PO SCH ×4 (00:04→18:13)
[2022-06-02] MEDS: metroNIDAZOLE 500 MG/100 ML BAG IV SCH ×3 (00:04→18:12)
[2022-06-02] MEDS: RASPBERRY SYRUP 5 ML UDP PO SCH ×4 (00:04→18:12)
[2022-06-02] MEDS: MIDODRINE HCL 2.5 MG TAB PO SCH (06:15)
[2022-06-02 06:28] LABS: Basophils # (auto) 0.04 K/uL (0-0.2); Basophils % (auto) 0.2 %; Eosinophils # (auto) 0.13 K/uL (0-0.50); Eosinophils % (auto) 0.8 %; Hematocrit (blood only) 28.4 % (37.0-47.0); Hemoglobin 9.3 g/dl (12.0-16.0); Immature Granulocytes # (auto) 0.08 K/uL (0.01-0.20); Immature Granulocytes % (auto) 0.5 %; Lymphocytes # (auto) 1.82 K/uL (1.2-3.4); Lymphocytes % (auto) 10.8 %; Mean Corpuscular Hemoglobin 27.5 pg (25.0-34.0); Mean Corpuscular Hgb Conc 32.7 g/dL (32.0-36.0); Mean Platelet Volume 9.8 fL (9.4-12.4); Monocytes # (auto) 0.74 K/uL (0.11-0.59); Monocytes % (auto) 4.4 %; Neutrophils # (auto) 14.07 K/uL (1.40-6.50); Neutrophils % (auto) 83.3 %; Platelet Count 313 K/uL (130-400); RDW Standard Deviation 54.5 fL (36.4-46.3); Red Blood Count 3.38 M/uL (4.20-5.40); White Blood Count 16.88 K/ul (4.8-10.8)
[2022-06-02 06:34] LABS: BUN Creatinine Ratio 26.5 (10-20); Creatinine Clr Calc Pharmacy 72.5 ml/min; Est GFR (Non-African American) 72.5 ml/min; Magnesium 1.7 mg/dl (1.7-2.4); Phosphorus 2.9 mg/dl (2.5-4.9); Potassium 3.9 mmol/L (3.5-5.1)
[2022-06-02] MEDS: FUROSEMIDE 40 MG/4 ML VIAL IV SCH (08:46)
[2022-06-02] MEDS: guaiFENesin 600 MG TABCR PO SCH ×2 (08:46→21:48)
[2022-06-02] MEDS: POTASSIUM CHLORIDE PWD 20 MEQ PACK PO SCH ×2 (08:46→21:49)
[2022-06-02] MEDS: AMIODARONE 200 MG TAB PO SCH ×2 (08:46→21:48)
[2022-06-02] MEDS: APIXABAN 5 MG TABLET PO SCH ×2 (08:47→21:49)
[2022-06-02] MEDS: INSULIN ASPART PER UNIT SC SCH ×4 (08:47→22:21)
[2022-06-02] MEDS: MULTIVITAMIN TAB PO SCH (08:47)
[2022-06-02] MEDS: PANTOprazole 40 MG TAB PO SCH ×2 (08:47→21:47)
[2022-06-02] MEDS: METOPROLOL SUCC 25MG EXT REL TAB PO SCH ×2 (08:48→21:49)
[2022-06-02] MEDS: DAPTOmycin 700 MG in SYRINGE 0 ML IV SCH (12:51)
--- NOTE | 2022-06-02 12:53 | Pharmacy Report ---
Pharmacy Glycemic Sign Off Nt - Date of Service June 01, 2022 - Assessment & Plan ASSESSMENT: * Pharmacy was consulted by Amalia Green on 05/19/22 for glycemic control and to write orders per [facility] inpatient glycemic control protocol. * Major changes made by pharmacy to antidiabetic regimen include: * Pharmacy assisted in transition off IV insulin infusion on 05/19/22. * There have been no significant changes to insulin regimen since 05/23/22. * Patient has required 5-8 units of Lantus per day since 05/25/22. * Novolog parameters were last adjusted on 05/26/22. * Patient has been requiring 10- 20 units of insulin per day for adequate glycemic control * BSGs ranging 92 - 193 mg/dl * Regimen has only required minor adjustments over the past 48hrs to achieve this level of control * Do not anticipate further changes in patient status that would quickly deteriorate glycemic control (i.e. patient to be NPO for upcoming procedure, steroids tapering, starting tube feedings, etc). PLAN FOR INPATIENT GLYCEMIC CONTROL: No changes needed to current regimen. * Continue basal insulin with Lantus 5 units SQ HS * Continue NovoLog per scale ACHS/Q6hrs while NPO * Goal range = 110 - 140 mg/dl * CF = 25 mg/dl/unit * CR = 1 unit for ever 8 g CHO consumed * Pharmacy is signing off of glycemic consult and will no longer be making adjustments to inpatient regimen. Please feel free to re-consult if needed. Thank you.
--- NOTE | 2022-06-02 13:01 | Hospitalist Progress Note ---
Date of Service June 02, 2022 Assessment & Plan (1) Septic shock: (2) GI bleed: (3) Respiratory failure with hypoxia: (4) MARIA ELENA (acute kidney injury): (5) Hyponatremia: (6) DM2 (diabetes mellitus, type 2): (7) HLD (hyperlipidemia): (8) HTN (hypertension): (9) H/O: CVA (cerebrovascular accident): (10) Neurogenic bladder: (11) Paroxysmal atrial fibrillation: (12) Depression with anxiety: Plan 66 yo F, resident at [facility] with PMH of CVA with residual right-sided weakne ss, chronic indwelling Lovelace catheter for neurogenic bladder, morbid obesity, HTN, GI bleeds, DM2, chronic hyponatremia, PAF on Eliquis was brought to the ED 05/18 from [facility] for concerns of encephalopathy and reported bloody bowel movements. She was noted to be obtunded, mildly hypothermic and with dried blood in oral cavity at ED and hence was intubated. She reportedly had another bowel movement in the ED that was dark maroon without clots. She is being managed for the following: C. difficile colitis Norovirus Ac Gastroenteritis Gram-positive bacteremia: 05/19 TT-echo neg for vegetation, GEORGETTE 05/20 - lesions on mitral leaflets, mass present in LA appendage - calcifications vs vegetations. repeat bl cx 05/20 - NG 5 days. Septic shock likely secondary to above Likely metabolic encephalopathy: resolved Concern of endocarditis: ID on board. Ischemic Stroke: allergic to aspirin, rosuvastatin on hold d/t being on Dapto, GLP-1 agonist vs SGLT 2 inhibitor (defer to PCP office once pt out of acute illness). Patient presents with altered mentation and was intubated due to AMS/dried blood in oral cavity Due to persistent hypotension, started on pressors at admission. Lovelace catheter was changed in the ED. Admitting labs with WBC of 32.5 K, hemoglobin of 11.8, AG metabolic acidosis in ABG. Pro-Maxim and LA elevated. Respiratory BioFire panel was negative. Admitting CXR with mild pulmonary vascular congestion. Admitting CTAP and CT chest: Nonspecific proctocolitis extending from the mid transverse colon distally. Small to moderate right pleural effusion with mild right basilar atelectasis. Admitting CT head with no new acute findings. 05/21 MRI Brain: Multiple small acute infarcts (b/l occipital lobes/left basal ganglia/other areas), likely embolic etiology. No hge or mass effect. 05/21 EEG: No epileptiform discharges or electrographic seizures were seen. 05/22 GEORGETTE: Mass present in left atrial appendage. Multiple focal, nonmobile lesions present on both mitral leaflets s/o calcification vs vegetation. 05/18 blood culture: CONS not lugdunensis 05/20 Bl Cx: NG5D Currently on midodrine, vancomycin p.o. 05/25 Procal wnl. Taper midodrine as able. ID on board: Vanco iv changed to dapto 05/24 --- 6 weeks treatment (through 07/01/22); c/w vanc po for C diff colitis. 05/24 cpk 22, labs weekly while on iv antibiotic, PICC line consent obtained and ordered. however not able to placed PICC, therefore US-guided line was placed (05/30/2022). 06/01 WBC trending up now. Flagyl IV restarted. D/w RN - pt may need lovelace cath changed- will obtain UA when done. If any concerns will d/w ID. 06/02 Lovelace was changed and UA is negative. WBC down to 17K GI bleed: Had dark-colored stool in the ED, admitting hemoglobin of 11.8, on Protonix po bid, hemoglobin stable around 11.5, labs in AM. c/w eliquis. per RN, miky alonzo. MARIA ELENA: Admitting creatinine of 4.06, secondary to septic shock, resolved. Type II NSTEMI: Troponin elevated likely secondary to acute illness, EKG and ec ho done/reviewed. SVT: cardio on board, on amiodarone and metoprolol. DC sotalol per d/w cardiology Iatrogenic volume overload: being diuresed, cardio on board, iv lasix daily, c/w FR 1500 ml. Unfortunately diuresis has been difficult d/t borderline BP, and as discussed w/ cardiology, prognosis remains guarded. However extremity edema much improved today (06/02/22) A-fib on Eliquis: c/w home eliquis, pt on amio and metoprolol per cardio Electrolyte abnormalities: Including hyponatremia, MARIA ELENA, metabolic acidosis. improving. Sacral wound, stage II: not sure if POA, pt chronically on bed per [facility]. WOCN. Poor appetite/h/o anxiety and depression: Remeron started. DMII: History of, sliding scale. CVA, Neurogenic bladder and anxiety: -home meds as able. -urinary catheter changed in the ER DVT PPx: Eliquis Code Status: DNR/DNI Dispo: PICC line consent obtained/order placed, pending diuresis, expect dc in 2-3 days. Will need neonatologist Dapto (see above). 05/24: Dr. Lauren - Received a call back from the nurse at [facility] who also took care of Lula. The RN states that Lula was not on any antibiotic in the last 2 months, she stays at the bed 100% of the time, weak on right side, oriented and completely appropriate at baseline, also inquired about allergies listed to atorvastatin and aspirin. On both of these drugs only cutaneous reaction is listed as an allergy on their side and they know no more than this about her allergies to aspirin and statin. Once the patient recovers better, will try to get more history from the patient herself. Admission and Anticipated Discharge Date Admission Date: May 18, 2022 Subjective Patient is seen in follow up of septic shock, GI bleed, C. difficile, norovirus, MARIA ELENA, electrolyte abnormalities. After admission found to have ischemic stroke and concern for infective endocarditis. Patient lying in bed, on RA, awake, alert, oriented Currently laying in bed in no acute distress. Sister present at the bedside. Denies any complaints. Pt denies pain. Denies fever, chills, chest pain, shortness of breath. No abd. pain. US-guided was placed. Cardiology, ID, palliative medicine following. Diuresis has been difficult d/t borderline BP and prognosis remains guarded. However extremity edema much improved today. WBC down to 17K Lovelace catheter was changed yesterday. ua checked and negative per RN had 2 loose stools Review of Systems Review of Systems: All systems reviewed & are unremarkable except as noted in Subjective Physical Exam Physical Exam: General: Awake , alert, oriented x 3, answers appropriately, speech clear. chronically ill appearing obese F, on RA HEENT: NC/AT. + thick neck, central line placed- removed Heart: RRR, no murmur Lower extremity: No erythema, 2+ pitting pedal edema (improved) Respiratory: on RA, clear to auscultation w/ some crackles Abdomen: soft, obese, + bowel sounds, nontender : Urinary catheter with yellow/melanie urine noted Neuro/psych: awake and alert, follows commands, speech fluent Sacral stage II ulcer. Results & Data Results & Data ([facility]) Vital Signs (Past 12 Hours) Vital Signs Temp Pulse Pulse Resp BP BP Pulse Ox 06/02/22 11:48 36.4 C L 76 20 98/65 L 99 06/02/22 07:33 37 C 84 19 97/65 L 95 06/02/22 03:52 36.4 C L 84 16 94/67 L 95 O2 Del Method 06/02/22 11:48 Room Air 06/02/22 07:33 Room Air 06/02/22 03:52 Room Air Laboratory Results 06/02/22 06/02/22 06/02/22 Range/Units 11:41 08:00 05:20 WBC (4.8-10.8) K/ul RBC (4.20-5.40) M/uL Hgb (12.0-16.0) g/dl Hct (37.0-47.0) % MCV (80.0-100.0) fL MCH (25.0-34.0) pg MCHC (32.0-36.0) g/dL RDW Std Deviation (36.4-46.3) fL RDW Coeff of Nelson (11.5-14.5) % Plt Count (130-400) K/uL MPV (9.4-12.4) fL Immature Gran % (Auto) % Neut % (Auto) % Lymph % (Auto) % Garza % (Auto) % Eos % (Auto) % Baso % (Auto) % Neut # (Auto) (1.40-6.50) K/uL Lymph # (Auto) (1.2-3.4) K/uL Garza # (Auto) (0.11-0.59) K/uL Eos # (Auto) (0-0.50) K/uL Baso # (Auto) (0-0.2) K/uL Immature Gran # (Auto) (0.01-0.20) K/uL Sodium 136 (136-145) mmol/L Potassium 3.9 (3.5-5.1) mmol/L Chloride 105 (98-107) mmol/L Carbon Dioxide 28 (21-32) mmol/L Anion Gap 3 (3-11) BUN 22 (6-23) mg/dl Creatinine 0.83 (0.6-1.2) mg/dl Est Cr Clr Drug Dosing 72.5 ml/min Est GFR ( Amer) 84.0 ml/min Est GFR (Non-Af Amer) 72.5 ml/min BUN/Creatinine Ratio 26.5 H (10-20) Glucose 98 (70-99(Fasting)) mg/dl POC Glucose 198 H 93 (70-99) mg/dl Calcium 8.0 L (8.5-10.1) mg/dl Phosphorus 2.9 (2.5-4.9) mg/dl Magnesium 1.7 (1.7-2.4) mg/dl Urine Color Urine Appearance (Clear) Urine pH (4.5-7.5) Ur Specific [place] (1.000-1.030) Urine Protein (Negative) Urine Glucose (UA) (Negative) Urine Ketones (Negative) Urine Blood (Negative) Urine Nitrite (Negative) Urine Bilirubin (Negative) Urine Urobilinogen (Negative) Ur Leukocyte Esterase (Negative) Urine WBC (Auto) (0-5) /hpf Urine RBC (Auto) (0-4) /hpf U Hyaline Cast (Auto) (0-5) /lpf U Epithel Cells (Auto) (0-5) /lpf Urine Bacteria (Auto) (Negative) Urine Yeast 06/02/22 06/01/22 06/01/22 Range/Units 05:20 20:47 16:38 WBC 16.88 H (4.8-10.8) K/ul RBC 3.38 L (4.20-5.40) M/uL Hgb 9.3 L (12.0-16.0) g/dl Hct 28.4 L (37.0-47.0) % MCV 84.0 (80.0-100.0) fL MCH 27.5 (25.0-34.0) pg MCHC 32.7 (32.0-36.0) g/dL RDW Std Deviation 54.5 H (36.4-46.3) fL RDW Coeff of Nelson 19.0 H (11.5-14.5) % Plt Count 313 (130-400) K/uL MPV 9.8 (9.4-12.4) fL Immature Gran % (Auto) 0.5 % Neut % (Auto) 83.3 % Lymph % (Auto) 10.8 % Garza % (Auto) 4.4 % Eos % (Auto) 0.8 % Baso % (Auto) 0.2 % Neut # (Auto) 14.07 H (1.40-6.50) K/uL Lymph # (Auto) 1.82 (1.2-3.4) K/uL Garza # (Auto) 0.74 H (0.11-0.59) K/uL Eos # (Auto) 0.13 (0-0.50) K/uL Baso # (Auto) 0.04 (0-0.2) K/uL Immature Gran # (Auto) 0.08 (0.01-0.20) K/uL Sodium (136-145) mmol/L Potassium (3.5-5.1) mmol/L Chloride (98-107) mmol/L Carbon Dioxide (21-32) mmol/L Anion Gap (3-11) BUN (6-23) mg/dl Creatinine (0.6-1.2) mg/dl Est Cr Clr Drug Dosing ml/min Est GFR ( Amer) ml/min Est GFR (Non-Af Amer) ml/min BUN/Creatinine Ratio (10-20) Glucose (70-99(Fasting)) mg/dl POC Glucose 109 H 196 H (70-99) mg/dl Calcium (8.5-10.1) mg/dl Phosphorus (2.5-4.9) mg/dl Magnesium (1.7-2.4) mg/dl Urine Color Urine Appearance (Clear) Urine pH (4.5-7.5) Ur Specific [place] (1.000-1.030) Urine Protein (Negative) Urine Glucose (UA) (Negative) Urine Ketones (Negative) Urine Blood (Negative) Urine Nitrite (Negative) Urine Bilirubin (Negative) Urine Urobilinogen (Negative) Ur Leukocyte Esterase (Negative) Urine WBC (Auto) (0-5) /hpf Urine RBC (Auto) (0-4) /hpf U Hyaline Cast (Auto) (0-5) /lpf U Epithel Cells (Auto) (0-5) /lpf Urine Bacteria (Auto) (Negative) Urine Yeast 06/01/22 Range/Units 14:38 WBC (4.8-10.8) K/ul RBC (4.20-5.40) M/uL Hgb (12.0-16.0) g/dl Hct (37.0-47.0) % MCV (80.0-100.0) fL MCH (25.0-34.0) pg MCHC (32.0-36.0) g/dL RDW Std Deviation (36.4-46.3) fL RDW Coeff of Nelson (11.5-14.5) % Plt Count (130-400) K/uL MPV (9.4-12.4) fL Immature Gran % (Auto) % Neut % (Auto) % Lymph % (Auto) % Garza % (Auto) % Eos % (Auto) % Baso % (Auto) % Neut # (Auto) (1.40-6.50) K/uL Lymph # (Auto) (1.2-3.4) K/uL Garza # (Auto) (0.11-0.59) K/uL Eos # (Auto) (0-0.50) K/uL Baso # (Auto) (0-0.2) K/uL Immature Gran # (Auto) (0.01-0.20) K/uL Sodium (136-145) mmol/L Potassium (3.5-5.1) mmol/L Chloride (98-107) mmol/L Carbon Dioxide (21-32) mmol/L Anion Gap (3-11) BUN (6-23) mg/dl Creatinine (0.6-1.2) mg/dl Est Cr Clr Drug Dosing ml/min Est GFR ( Amer) ml/min Est GFR (Non-Af Amer) ml/min BUN/Creatinine Ratio (10-20) Glucose (70-99(Fasting)) mg/dl POC Glucose (70-99) mg/dl Calcium (8.5-10.1) mg/dl Phosphorus (2.5-4.9) mg/dl Magnesium (1.7-2.4) mg/dl Urine Color Yellow Urine Appearance Cloudy A (Clear) Urine pH 5.0 (4.5-7.5) Ur Specific [place] 1.012 (1.000-1.030) Urine Protein 1+ H (Negative) Urine Glucose (UA) Negative (Negative) Urine Ketones Negative (Negative) Urine Blood 3+ H (Negative) Urine Nitrite Negative (Negative) Urine Bilirubin Negative (Negative) Urine Urobilinogen Negative (Negative) Ur Leukocyte Esterase 3+ H (Negative) Urine WBC (Auto) >30 H (0-5) /hpf Urine RBC (Auto) 10-30 H (0-4) /hpf U Hyaline Cast (Auto) 5-10 H (0-5) /lpf U Epithel Cells (Auto) 10-20 H (0-5) /lpf Urine Bacteria (Auto) Negative (Negative) Urine Yeast Not Reportable Medications Administered Current Inpatient Medications Amiodarone HCl (Amiodarone 200 Mg Tab) 400 mg PO BID TIERA Stop: 06/22/22 20:59 Last Admin: 06/02/22 08:46 Dose: 400 mg Apixaban (Apixaban 5 Mg Tablet) 5 mg PO BID TIERA Stop: 06/25/22 20:59 Last Admin: 06/02/22 08:47 Dose: 5 mg Dextrose (Dextrose 50% 50 Ml Syringe) 25 - 50 ml IV UD PRN; Protocol PRN Reason: Hypoglycemia Protocol Stop: 06/17/22 23:35 Furosemide (Furosemide 40 Mg Tab) 40 mg PO DAILY TIERA Stop: 06/25/22 08:59 Last Admin: 05/28/22 08:31 Dose: 40 mg Furosemide (Furosemide 40 Mg/4 Ml Vial) 40 mg IV QAM [facility] Stop: 06/28/22 08:59 Last Admin: 06/02/22 08:46 Dose: 40 mg Glucagon (Glucagon For Inj 1 Mg Vial) 1 mg SQ UD PRN; Protocol PRN Reason: Hypoglycemia Protocol Stop: 06/17/22 23:35 Glucose (Glucose 10 Tab/Tube) 4 - 8 tab PO UD PRN; Protocol PRN Reason: Hypoglycemia Treatment Stop: 06/17/22 23:35 Glucose (Glucose 40% Gel 15 Gm Tube) 15 - 30 gm PO UD PRN; Protocol PRN Reason: Hypoglycemia Protocol Stop: 06/17/22 23:35 Guaifenesin (Guaifenesin 600 Mg Tabcr) 600 mg PO Q12 TIERA Stop: 07/01/22 08:59 Last Admin: 06/02/22 08:46 Dose: 600 mg Daptomycin 700 mg/ Syringe 14 mls @ 7 mls/min IV Q24H [facility]; Protocol Stop: 07/05/22 11:59 Last Admin: 06/01/22 10:53 Dose: 7 mls/min Metronidazole (Flagyl) 500 mg in 100 mls @ 100 mls/hr IV Q8H TIERA Stop: 06/10/22 08:29 Last Infusion: 06/02/22 10:07 Dose: Infused Insulin Aspart (Insulin Aspart Per Unit) 0 units SC ACHS TIERA Stop: 06/18/22 22:59 Last Admin: 06/02/22 08:47 Dose: 6 units Insulin Glargine (Lantus Per Unit Charge) 5 units SQ HS [facility] Stop: 07/01/22 20:59 Last Admin: 06/01/22 21:35 Dose: 5 units Magnesium Oxide (Magnesium Oxide 400 Mg Tab) 400 mg PO BID [facility] Stop: 06/26/22 08:59 Last Admin: 05/30/22 20:31 Dose: 400 mg Metoprolol Succinate (Metoprolol Succ 25mg Ext Rel Tab) 12.5 mg PO BID [facility] Stop: 06/27/22 20:59 Last Admin: 06/02/22 08:48 Dose: 12.5 mg Midodrine (Midodrine Hcl 2.5 Mg Tab) 5 mg PO DAILY@0700 [facility] Stop: 06/26/22 02:24 Last Admin: 06/02/22 06:15 Dose: 5 mg Mirtazapine (Mirtazapine Tab 15 Mg Tab) 7.5 mg PO HS [facility] Stop: 06/26/22 20:59 Last Admin: 06/01/22 21:06 Dose: 7.5 mg Miscellaneous (Carbohydrates For Hypoglycemia ) 15 - 30 gm PO UD PRN PRN Reason: Hypoglycemia Protocol Stop: 06/17/22 23:35 Miscellaneous Information (Pharmacist Discharge Med Rec Consult) 1 each N/A UD PRN PRN Reason: Consult Stop: 06/22/22 12:44 Multivitamins (Multivitamin Tab) 1 tab PO QAM [facility]ERA Stop: 06/27/22 08:59 Last Admin: 06/02/22 08:47 Dose: 1 tab Pantoprazole Sodium (Pantoprazole 40 Mg Tab) 40 mg PO BID [facility] Stop: 06/24/22 20:59 Last Admin: 06/02/22 08:47 Dose: 40 mg Potassium Chloride (Potassium Chloride Pwd 20 Meq Pack) 20 meq PO BID [facility] Stop: 06/26/22 08:59 Last Admin: 06/02/22 08:46 Dose: 20 meq Raspberry (Raspberry Syrup 5 Ml Udp) 5 ml PO Q6 [facility] Stop: 06/04/22 23:59 Last Admin: 06/02/22 06:15 Dose: 5 ml Vancomycin HCl (Vancomycin Hcl 500 Mg/10 Ml Soln) 500 mg PO Q6 [facility] Stop: 06/04/22 23:59 Last Admin: 06/02/22 06:15 Dose: 500 mg
[2022-06-02] MEDS: MIRTAZAPINE TAB 15 MG TAB PO SCH (21:48)
[2022-06-02] MEDS: LANTUS PER UNIT CHARGE SQ SCH (22:22)
[2022-06-03] MEDS: VANCOMYCIN HCL 500 MG/10 ML SOLN PO SCH ×5 (00:49→23:25)
[2022-06-03] MEDS: RASPBERRY SYRUP 5 ML UDP PO SCH ×5 (00:49→23:24)
[2022-06-03] MEDS: metroNIDAZOLE 500 MG/100 ML BAG IV SCH ×4 (00:49→23:24)
[2022-06-03] MEDS: MIDODRINE HCL 2.5 MG TAB PO SCH (06:15)
[2022-06-03 06:48] LABS: Hematocrit (blood only) 28.6 % (37.0-47.0); Hemoglobin 9.3 g/dl (12.0-16.0); Mean Corpuscular Hemoglobin 27.6 pg (25.0-34.0); Mean Corpuscular Hgb Conc 32.5 g/dL (32.0-36.0); Mean Corpuscular Volume 84.9 fL (80.0-100.0); Mean Platelet Volume 9.4 fL (9.4-12.4); Platelet Count 313 K/uL (130-400); RDW Coefficient of Variation 19.7 % (11.5-14.5); RDW Standard Deviation 56.4 fL (36.4-46.3); Red Blood Count 3.37 M/uL (4.20-5.40)
[2022-06-03 07:01] LABS: BUN Creatinine Ratio 28.8 (10-20); Calcium 7.9 mg/dl (8.5-10.1); Creatinine Clr Calc Pharmacy 75.1 ml/min; Est GFR (African American) 87.8 ml/min; Est GFR (Non-African American) 75.8 ml/min; Magnesium 1.6 mg/dl (1.7-2.4); Phosphorus 2.8 mg/dl (2.5-4.9); Potassium 3.3 mmol/L (3.5-5.1)
[2022-06-03] MEDS ORDERED: MAGNESIUM SULFATE / D5W 1 GM/100 ML BAG IV ONE (07:47)
[2022-06-03] MEDS ORDERED: POTASSIUM CHLORIDE CRTAB 20 MEQ TABCR PO STA (07:47)
--- NOTE | 2022-06-03 07:47 | Hospitalist Progress Note ---
Date of Service June 03, 2022 Assessment & Plan (1) Septic shock: (2) GI bleed: (3) Respiratory failure with hypoxia: (4) MARIA ELENA (acute kidney injury): (5) Hyponatremia: (6) DM2 (diabetes mellitus, type 2): (7) HLD (hyperlipidemia): (8) HTN (hypertension): (9) H/O: CVA (cerebrovascular accident): (10) Neurogenic bladder: (11) Paroxysmal atrial fibrillation: (12) Depression with anxiety: Plan 66 yo F, resident at [facility] with PMH of CVA with residual right-sided weakne ss, chronic indwelling Lovelace catheter for neurogenic bladder, morbid obesity, HTN, GI bleeds, DM2, chronic hyponatremia, PAF on Eliquis was brought to the ED 05/18 from [facility] for concerns of encephalopathy and reported bloody bowel movements. She was noted to be obtunded, mildly hypothermic and with dried blood in oral cavity at ED and hence was intubated. She reportedly had another bowel movement in the ED that was dark maroon without clots. She is being managed for the following: C. difficile colitis Norovirus Ac Gastroenteritis Gram-positive bacteremia: 05/19 TT-echo neg for vegetation, GEORGETTE 05/20 - lesions on mitral leaflets, mass present in LA appendage - calcifications vs vegetations. repeat bl cx 05/20 - NG 5 days. Septic shock likely secondary to above Likely metabolic encephalopathy: resolved Concern of endocarditis: ID on board. Ischemic Stroke: allergic to aspirin, rosuvastatin on hold d/t being on Dapto, GLP-1 agonist vs SGLT 2 inhibitor (defer to PCP office once pt out of acute illness). Patient presents with altered mentation and was intubated due to AMS/dried blood in oral cavity Due to persistent hypotension, started on pressors at admission. Lovelace catheter was changed in the ED. Admitting labs with WBC of 32.5 K, hemoglobin of 11.8, AG metabolic acidosis in ABG. Pro-Maxim and LA elevated. Respiratory BioFire panel was negative. Admitting CXR with mild pulmonary vascular congestion. Admitting CTAP and CT chest: Nonspecific proctocolitis extending from the mid transverse colon distally. Small to moderate right pleural effusion with mild right basilar atelectasis. Admitting CT head with no new acute findings. 05/21 MRI Brain: Multiple small acute infarcts (b/l occipital lobes/left basal ganglia/other areas), likely embolic etiology. No hge or mass effect. 05/21 EEG: No epileptiform discharges or electrographic seizures were seen. 05/22 GEORGETTE: Mass present in left atrial appendage. Multiple focal, nonmobile lesions present on both mitral leaflets s/o calcification vs vegetation. 05/18 blood culture: CONS not lugdunensis 05/20 Bl Cx: NG5D Currently on midodrine, vancomycin p.o. 05/25 Procal wnl. Taper midodrine as able. ID on board: Vanco iv changed to dapto 05/24 --- 6 weeks treatment (through 07/01/22); c/w vanc po for C diff colitis. 05/24 cpk 22, labs weekly while on iv antibiotic, PICC line consent obtained and ordered. however not able to placed PICC, therefore US-guided line was placed (05/30/2022). 06/01 WBC trending up now. Flagyl IV restarted. D/w RN - pt may need lovelace cath changed- and obtain UA when done. If any concerns will d/w ID. 06/02 Lovelace was changed and UA is negative for bacteria or nitrites. WBC down to 17K 06/03 even though UA negative, urine culture is growing Pseudomonas. WBC down to 12,000. We will further discuss with ID GI bleed: Had dark-colored stool in the ED, admitting hemoglobin of 11.8, on Protonix po bid, hemoglobin stable around 11.5, labs in AM. c/w eliquis. per RNmiky. MARIA ELENA: Admitting creatinine of 4.06, secondary to septic shock, resolved. Type II NSTEMI: Troponin elevated likely secondary to acute illness, EKG and echo done/reviewed. SVT: cardio on board, on amiodarone and metoprolol. DC sotalol per d/w cardiology Iatrogenic volume overload: being diuresed, cardio on board, iv lasix daily, c/w FR 1500 ml. Unfortunately diuresis has been difficult d/t borderline BP, and as discussed w/ cardiology, prognosis remains guarded. However extremity edema much improved now. A-fib on Eliquis: c/w home eliquis, pt on amio and metoprolol per cardio Electrolyte abnormalities: Including hyponatremia, MARIA ELENA, metabolic acidosis. improving. Sacral wound, stage II: not sure if POA, pt chronically on bed per [facility]. WOCN. Poor appetite/h/o anxiety and depression: Remeron started. DMII: History of, sliding scale. CVA, Neurogenic bladder and anxiety: -home meds as able. -urinary catheter changed in the ER DVT PPx: Eliquis Code Status: DNR/DNI Dispo: expect dc in 2-3 days. Will need long-term Daptomycin (see above). Admission and Anticipated Discharge Date Admission Date: May 18, 2022 Subjective Patient is seen in follow up of septic shock, GI bleed, C. difficile, norovirus, MARIA ELENA, electrolyte abnormalities. After admission found to have ischemic stroke and concern for infective endocarditis. Patient lying in bed, on RA, awake, alert, oriented Currently laying in bed in no acute distress. Yesterday, sister was present at the bedside and updated. Denies any complaints. Pt denies pain. Denies fever, chills, chest pain, shortness of breath. No abd. pain. US-guided was placed. Cardiology, ID, palliative medicine following. Diuresis has been difficult d/t borderline BP and prognosis remains guarded. However extremity edema much improved now. and WBC down to 12K Lovelace catheter was ex-changed. UA checked and negative however ucultx Review of Systems Review of Systems: All systems reviewed & are unremarkable except as noted in Subjective Physical Exam Physical Exam: General: Awake , alert, oriented x 3, answers appropriately, speech clear. chronically ill appearing obese F, on RA HEENT: NC/AT. + thick neck, central line now removed, site dry, clean Heart: RRR, no murmur Lower extremity: No erythema, 1+ pitting pedal edema (improved) Respiratory: on RA, clear to auscultation w/ some crackles Abdomen: soft, obese, + bowel sounds, nontender : Urinary catheter with yellow/melanie urine noted Neuro/psych: awake and alert, follows commands, speech fluent Sacral stage II ulcer. Results & Data Results & Data ([facility]) Vital Signs (Past 12 Hours) Vital Signs Temp Pulse Pulse Resp BP Pulse Ox O2 Del Method 06/03/22 03:00 36.8 C 84 16 104/64 99 Room Air 06/02/22 22:33 87 06/02/22 23:00 37.2 C 84 20 108/64 99 Room Air Laboratory Results 06/03/22 06/03/22 06/02/22 Range/Units 06:11 06:11 22:14 WBC 12.10 H (4.8-10.8) K/ul RBC 3.37 L (4.20-5.40) M/uL Hgb 9.3 L (12.0-16.0) g/dl Hct 28.6 L (37.0-47.0) % MCV 84.9 (80.0-100.0) fL MCH 27.6 (25.0-34.0) pg MCHC 32.5 (32.0-36.0) g/dL RDW Std Deviation 56.4 H (36.4-46.3) fL RDW Coeff of Nelson 19.7 H (11.5-14.5) % Plt Count 313 (130-400) K/uL MPV 9.4 (9.4-12.4) fL Sodium 136 (136-145) mmol/L Potassium 3.3 L (3.5-5.1) mmol/L Chloride 105 (98-107) mmol/L Carbon Dioxide 26 (21-32) mmol/L Anion Gap 5 (3-11) BUN 23 (6-23) mg/dl Creatinine 0.80 (0.6-1.2) mg/dl Est Cr Clr Drug Dosing 75.1 ml/min Est GFR ( Amer) 87.8 ml/min Est GFR (Non-Af Amer) 75.8 ml/min BUN/Creatinine Ratio 28.8 H (10-20) Glucose 98 (70-99(Fasting)) mg/dl POC Glucose 156 H (70-99) mg/dl Calcium 7.9 L (8.5-10.1) mg/dl Phosphorus 2.8 (2.5-4.9) mg/dl Magnesium 1.6 L (1.7-2.4) mg/dl 06/02/22 06/02/22 06/02/22 Range/Units 16:33 11:41 08:00 WBC (4.8-10.8) K/ul RBC (4.20-5.40) M/uL Hgb (12.0-16.0) g/dl Hct (37.0-47.0) % MCV (80.0-100.0) fL MCH (25.0-34.0) pg MCHC (32.0-36.0) g/dL RDW Std Deviation (36.4-46.3) fL RDW Coeff of Nelson (11.5-14.5) % Plt Count (130-400) K/uL MPV (9.4-12.4) fL Sodium (136-145) mmol/L Potassium (3.5-5.1) mmol/L Chloride (98-107) mmol/L Carbon Dioxide (21-32) mmol/L Anion Gap (3-11) BUN (6-23) mg/dl Creatinine (0.6-1.2) mg/dl Est Cr Clr Drug Dosing ml/min Est GFR ( Amer) ml/min Est GFR (Non-Af Amer) ml/min BUN/Creatinine Ratio (10-20) Glucose (70-99(Fasting)) mg/dl POC Glucose 130 H 198 H 93 (70-99) mg/dl Calcium (8.5-10.1) mg/dl Phosphorus (2.5-4.9) mg/dl Magnesium (1.7-2.4) mg/dl Medications Administered Current Inpatient Medications Amiodarone HCl (Amiodarone 200 Mg Tab) 400 mg PO BID TIERA Stop: 06/22/22 20:59 Last Admin: 06/02/22 21:48 Dose: 400 mg Apixaban (Apixaban 5 Mg Tablet) 5 mg PO BID TIERA Stop: 06/25/22 20:59 Last Admin: 06/02/22 21:49 Dose: 5 mg Dextrose (Dextrose 50% 50 Ml Syringe) 25 - 50 ml IV UD PRN; Protocol PRN Reason: Hypoglycemia Protocol Stop: 06/17/22 23:35 Furosemide (Furosemide 40 Mg Tab) 40 mg PO DAILY TIERA Stop: 06/25/22 08:59 Last Admin: 05/28/22 08:31 Dose: 40 mg Furosemide (Furosemide 40 Mg/4 Ml Vial) 40 mg IV QAM TIERA Stop: 06/28/22 08:59 Last Admin: 06/02/22 08:46 Dose: 40 mg Glucagon (Glucagon For Inj 1 Mg Vial) 1 mg SQ UD PRN; Protocol PRN Reason: Hypoglycemia Protocol Stop: 06/17/22 23:35 Glucose (Glucose 10 Tab/Tube) 4 - 8 tab PO UD PRN; Protocol PRN Reason: Hypoglycemia Treatment Stop: 06/17/22 23:35 Glucose (Glucose 40% Gel 15 Gm Tube) 15 - 30 gm PO UD PRN; Protocol PRN Reason: Hypoglycemia Protocol Stop: 06/17/22 23:35 Guaifenesin (Guaifenesin 600 Mg Tabcr) 600 mg PO Q12 TIERA Stop: 07/01/22 08:59 Last Admin: 06/02/22 21:48 Dose: 600 mg Daptomycin 700 mg/ Syringe 14 mls @ 7 mls/min IV Q24H [facility]; Protocol Stop: 07/05/22 11:59 Last Admin: 06/02/22 12:51 Dose: 7 mls/min Metronidazole (Flagyl) 500 mg in 100 mls @ 100 mls/hr IV Q8H [facility] Stop: 06/10/22 08:29 Last Infusion: 06/03/22 01:53 Dose: Infused Insulin Aspart (Insulin Aspart Per Unit) 0 units SC [facility] Stop: 06/18/22 22:59 Last Admin: 06/02/22 22:21 Dose: 1 units Insulin Glargine (Lantus Per Unit Charge) 5 units SQ [facility] Stop: 07/01/22 20:59 Last Admin: 06/02/22 22:22 Dose: 5 units Magnesium Oxide (Magnesium Oxide 400 Mg Tab) 400 mg PO BID [facility] Stop: 06/26/22 08:59 Last Admin: 05/30/22 20:31 Dose: 400 mg Metoprolol Succinate (Metoprolol Succ 25mg Ext Rel Tab) 12.5 mg PO BID [facility] Stop: 06/27/22 20:59 Last Admin: 06/02/22 21:49 Dose: 12.5 mg Midodrine (Midodrine Hcl 2.5 Mg Tab) 5 mg PO DAILY@0700 [facility] Stop: 06/26/22 02:24 Last Admin: 06/03/22 06:15 Dose: 5 mg Mirtazapine (Mirtazapine Tab 15 Mg Tab) 7.5 mg PO [facility] Stop: 06/26/22 20:59 Last Admin: 06/02/22 21:48 Dose: 7.5 mg Miscellaneous (Carbohydrates For Hypoglycemia ) 15 - 30 gm PO UD PRN PRN Reason: Hypoglycemia Protocol Stop: 06/17/22 23:35 Miscellaneous Information (Pharmacist Discharge Med Rec Consult) 1 each N/A UD PRN PRN Reason: Consult Stop: 06/22/22 12:44 Multivitamins (Multivitamin Tab) 1 tab PO QAM TIERA Stop: 06/27/22 08:59 Last Admin: 06/02/22 08:47 Dose: 1 tab Pantoprazole Sodium (Pantoprazole 40 Mg Tab) 40 mg PO BID TIERA Stop: 06/24/22 20:59 Last Admin: 06/02/22 21:47 Dose: 40 mg Potassium Chloride (Potassium Chloride Pwd 20 Meq Pack) 20 meq PO BID TIERA Stop: 06/26/22 08:59 Last Admin: 06/02/22 21:49 Dose: 20 meq Raspberry (Raspberry Syrup 5 Ml Udp) 5 ml PO Q6 TIERA Stop: 06/04/22 23:59 Last Admin: 06/03/22 06:15 Dose: 5 ml Vancomycin HCl (Vancomycin Hcl 500 Mg/10 Ml Soln) 500 mg PO Q6 TIERA Stop: 06/04/22 23:59 Last Admin: 06/03/22 06:19 Dose: 500 mg
[2022-06-03] MEDS: FUROSEMIDE 40 MG/4 ML VIAL IV SCH (09:05)
[2022-06-03] MEDS: METOPROLOL SUCC 25MG EXT REL TAB PO SCH ×2 (09:05→21:38)
[2022-06-03] MEDS: APIXABAN 5 MG TABLET PO SCH ×2 (09:05→21:37)
[2022-06-03] MEDS: PANTOprazole 40 MG TAB PO SCH ×2 (09:05→21:39)
[2022-06-03] MEDS: AMIODARONE 200 MG TAB PO SCH ×2 (09:05→21:37)
[2022-06-03] MEDS: POTASSIUM CHLORIDE PWD 20 MEQ PACK PO SCH ×2 (09:06→21:36)
[2022-06-03] MEDS: guaiFENesin 600 MG TABCR PO SCH ×2 (09:06→21:39)
[2022-06-03] MEDS: MULTIVITAMIN TAB PO SCH (09:07)
[2022-06-03] MEDS: INSULIN ASPART PER UNIT SC SCH ×4 (09:08→23:21)
[2022-06-03] MEDS ORDERED: POTASSIUM CHLORIDE PWD 20 MEQ PACK PO ONE (11:19)
[2022-06-03] MEDS: DAPTOmycin 700 MG in SYRINGE 0 ML IV SCH (12:50)
--- NOTE | 2022-06-03 16:57 | Infectious Disease Progress Nt ---
Date of Service June 03, 2022 Assessment & Plan (1) Endocarditis: (2) Upper GI bleed: (3) Colitis: Plan 66-year-old female, past medical history of CVA with right hemiplegia, diabetes type 2, hypertension, MDD/anxiety, A-fib on Eliquis, hyperlipidemia, neurogenic bladder with chronic indwelling Milan catheter, COVID infection in February, who presented to the ED on 05/18/2022 from her fdc facility at [facility] for altered mental status and diarrhea over the past 24 hours. Problem List #Endocarditis, multiple mitral and aortic valve #Acute brain infarcts #Septic shock resolved #CoNS bacteremia #Cdiff Colitis #Leukocytosis ABX Daptomycin CPK 05/25: 22 05/24- Flagyl 500mg IV q8 hours Vancomycin po #septic shock, resolved -in setting of admission from her SNF with report of diarrhea, AMS, hypotension -CT chest and CT abdomen pelvis without contrast showed nonspecific proctocolitis -05/19 stool PCR panel positive for C. difficile and norovirus. -pt on PO vanco/IV metronidazole -no rectal tube, extubated, now on RA -WBC remains elevated, in setting of also receiving steroids -ARF dramatically improved #abnormal GEORGETTE -MRI brain on 05/21 showed multiple small scattered foci restricted diffusion which represent acute infarcts and favoring embolic etiology. EEG with generalized slowing. -05/22 GEORGETTE showed multiple focal, nonmobile lesions present on both mitral leaflets and a mass present in the left atrial appendage and focal thickening of the left coronary cusp, calcification versus vegetation. 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 - 05/18 blood cultures with coagulase-negative staph not lugdunensis in 2 out of 2 sets, with 2 different coagulase-negative staph species in 1 of 2 sets- for 1 species, vanco SOL is 2. -05/20 blood cultures are no growth to date. Recommend: Multiple species of coagulase negative staph increases likelihood of contaminants and coagulase negative staph endocarditis rare unless prosthetic valve present. Dr. New spoke to micro lab- as there are 2 types of MANNEQUIN MOLD MAKER in 1 set with different susceptibilities, I requested that susceptibility testing be performed on the MANNEQUIN MOLD MAKER in the other set- One is oxacillin sensi, the other is oxacillin R. 05/20 repeat Bcxs are NGTD. Pt is not able to provide history, so would ask primary team to determine from SNF if pt was on antibiotics for period of 4 weeks prior to admission. Cardiology recommending treatment for IE. Antibiotics changed from vancomycin to daptomycin 700 mg (~10 mg/kg based on adjusted body weight) IV daily for ease of administration long-term and vanco SOL. Pt not on statin. Leukocytosis has improved since Friday, I wonder if Flagyl is covering anaerobic process in lungs rather than severe Cdiff. We typically reserve flagyl for severe Cdiff disease. Difficult to tell. I would continue through tomorrow and DC. Pseudomona in urine appears to be asymptomatic bacteruria. Admission and Anticipated Discharge Date Admission Date: May 18, 2022 Subjective This patient recommendation is based on a telemedicine consult request which was completed asynchronously through chart review and information provided by the primary physician. The patient was not seen or examined today. The evaluation is consultative in nature and all patient care and treatment decisions can either be accepted or rejected by the patient's primary hospital-based treating physician using their own independent medical judgment for their patient. Time Spent Reviewing Chart: 21 - 30 minutes 24 hours/OTW 06/01 UA >30wbcs, Ucx >100k Pseudomonas no resistance Flagyl started 06/01 because of leukocytosis WBC 16-->12 Results & Data ([facility]) Vital Signs (Past 12 Hours) Vital Signs Temp Pulse Pulse Resp BP Pulse Ox O2 Del Method 06/03/22 16:00 36.4 C L 87 18 92/58 L 99 Room Air 06/03/22 15:20 Room Air 06/03/22 10:49 36.5 C 85 19 100/67 97 Room Air 06/03/22 08:25 36.7 C 86 20 129/77 98 Room Air 06/03/22 08:00 90 Laboratory Results Laboratory Results - last 48 hr 06/01/22 06/02/22 06/02/22 20:47 05:20 05:20 WBC 16.88 H RBC 3.38 L Hgb 9.3 L Hct 28.4 L MCV 84.0 MCH 27.5 MCHC 32.7 RDW Std Deviation 54.5 H RDW Coeff of Nelson 19.0 H Plt Count 313 MPV 9.8 Immature Gran % (Auto) 0.5 Neut % (Auto) 83.3 Lymph % (Auto) 10.8 Pershing % (Auto) 4.4 Eos % (Auto) 0.8 Baso % (Auto) 0.2 Neut # (Auto) 14.07 H Lymph # (Auto) 1.82 Pershing # (Auto) 0.74 H Eos # (Auto) 0.13 Baso # (Auto) 0.04 Immature Gran # (Auto) 0.08 Sodium 136 Potassium 3.9 Chloride 105 Carbon Dioxide 28 Anion Gap 3 BUN 22 Creatinine 0.83 Est Cr Clr Drug Dosing 72.5 Est GFR ( Amer) 84.0 Est GFR (Non-Af Amer) 72.5 BUN/Creatinine Ratio 26.5 H Glucose 98 POC Glucose 109 H Calcium 8.0 L Phosphorus 2.9 Magnesium 1.7 06/02/22 06/02/22 06/02/22 08:00 11:41 16:33 WBC RBC Hgb Hct MCV MCH MCHC RDW Std Deviation RDW Coeff of Nelson Plt Count MPV Immature Gran % (Auto) Neut % (Auto) Lymph % (Auto) Pershing % (Auto) Eos % (Auto) Baso % (Auto) Neut # (Auto) Lymph # (Auto) Pershing # (Auto) Eos # (Auto) Baso # (Auto) Immature Gran # (Auto) Sodium Potassium Chloride Carbon Dioxide Anion Gap BUN Creatinine Est Cr Clr Drug Dosing Est GFR ( Amer) Est GFR (Non-Af Amer) BUN/Creatinine Ratio Glucose POC Glucose 93 198 H 130 H Calcium Phosphorus Magnesium 06/02/22 06/03/22 06/03/22 22:14 06:11 06:11 WBC 12.10 H RBC 3.37 L Hgb 9.3 L Hct 28.6 L MCV 84.9 MCH 27.6 MCHC 32.5 RDW Std Deviation 56.4 H RDW Coeff of Nelson 19.7 H Plt Count 313 MPV 9.4 Immature Gran % (Auto) Neut % (Auto) Lymph % (Auto) Pershing % (Auto) Eos % (Auto) Baso % (Auto) Neut # (Auto) Lymph # (Auto) Pershing # (Auto) Eos # (Auto) Baso # (Auto) Immature Gran # (Auto) Sodium 136 Potassium 3.3 L Chloride 105 Carbon Dioxide 26 Anion Gap 5 BUN 23 Creatinine 0.80 Est Cr Clr Drug Dosing 75.1 Est GFR ( Amer) 87.8 Est GFR (Non-Af Amer) 75.8 BUN/Creatinine Ratio 28.8 H Glucose 98 POC Glucose 156 H Calcium 7.9 L Phosphorus 2.8 Magnesium 1.6 L 06/03/22 06/03/22 08:06 11:51 WBC RBC Hgb Hct MCV MCH MCHC RDW Std Deviation RDW Coeff of Nelson Plt Count MPV Immature Gran % (Auto) Neut % (Auto) Lymph % (Auto) Pershing % (Auto) Eos % (Auto) Baso % (Auto) Neut # (Auto) Lymph # (Auto) Pershing # (Auto) Eos # (Auto) Baso # (Auto) Immature Gran # (Auto) Sodium Potassium Chloride Carbon Dioxide Anion Gap BUN Creatinine Est Cr Clr Drug Dosing Est GFR ( Amer) Est GFR (Non-Af Amer) BUN/Creatinine Ratio Glucose POC Glucose 109 H 146 H Calcium Phosphorus Magnesium
[2022-06-03] MEDS: MIRTAZAPINE TAB 15 MG TAB PO SCH (21:37)
[2022-06-03] MEDS: LANTUS PER UNIT CHARGE SQ SCH (23:21)
[2022-06-04 03:51] VITALS: O2SAT 99
[2022-06-04] MEDS: VANCOMYCIN HCL 500 MG/10 ML SOLN PO SCH ×2 (06:31→12:02)
[2022-06-04] MEDS: RASPBERRY SYRUP 5 ML UDP PO SCH ×2 (06:31→12:02)
[2022-06-04] MEDS: MIDODRINE HCL 2.5 MG TAB PO SCH (06:32)
[2022-06-04 06:44] LABS: Hematocrit (blood only) 27.9 % (37.0-47.0); Hemoglobin 9.4 g/dl (12.0-16.0); Mean Corpuscular Hemoglobin 28.2 pg (25.0-34.0); Mean Corpuscular Hgb Conc 33.7 g/dL (32.0-36.0); Mean Corpuscular Volume 83.8 fL (80.0-100.0); Mean Platelet Volume 9.7 fL (9.4-12.4); Platelet Count 290 K/uL (130-400); RDW Coefficient of Variation 19.4 % (11.5-14.5); RDW Standard Deviation 53.9 fL (36.4-46.3); Red Blood Count 3.33 M/uL (4.20-5.40); White Blood Count 10.76 K/ul (4.8-10.8)
[2022-06-04 07:05] LABS: BUN Creatinine Ratio 26.3 (10-20); Creatinine Clr Calc Pharmacy 75.6 ml/min; Est GFR (African American) 87.8 ml/min; Est GFR (Non-African American) 75.8 ml/min; Magnesium 1.7 mg/dl (1.7-2.4); Phosphorus 2.4 mg/dl (2.5-4.9); Potassium 3.3 mmol/L (3.5-5.1)
[2022-06-04 08:20] VITALS: BP 102/60; TEMP 98.2
[2022-06-04] MEDS: INSULIN ASPART PER UNIT SC SCH ×2 (08:41→12:00)
[2022-06-04] MEDS: guaiFENesin 600 MG TABCR PO SCH (08:49)
[2022-06-04] MEDS: METOPROLOL SUCC 25MG EXT REL TAB PO SCH (08:49)
[2022-06-04] MEDS: PANTOprazole 40 MG TAB PO SCH (08:49)
[2022-06-04] MEDS: APIXABAN 5 MG TABLET PO SCH (08:49)
[2022-06-04] MEDS: metroNIDAZOLE 500 MG/100 ML BAG IV SCH (08:49)
[2022-06-04] MEDS: POTASSIUM CHLORIDE PWD 20 MEQ PACK PO SCH (08:50)
[2022-06-04] MEDS: AMIODARONE 200 MG TAB PO SCH (08:51)
[2022-06-04] MEDS: MULTIVITAMIN TAB PO SCH (08:51)
--- NOTE | 2022-06-04 09:37 | Infectious Disease Progress Nt ---
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 difficile and norovirus. -pt on PO vanco/IV metronidazole -no rectal tube, extubated, now on RA -WBC remains elevated, in setting of also receiving steroids, now resolved -ARF dramatically improved #abnormal GEORGETTE -MRI brain on 05/21 showed multiple small scattered foci restricted diffusion which represent acute infarcts and favoring embolic etiology. EEG with generalized slowing. -05/22 GEORGETTE showed multiple focal, nonmobile lesions present on both mitral leaflets and a mass present in the left atrial appendage and focal thickening of the left coronary cusp, calcification versus vegetation. 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 - 05/18 blood cultures with coagulase-negative staph not lugdunensis in 2 out of 2 sets, with 2 different coagulase-negative staph species in 1 of 2 sets- for 1 species, vanco SOL is 2. -05/20 blood cultures are no growth to date. Recommend: Multiple species of coagulase negative staph increases likelihood of contaminants and coagulase negative staph endocarditis rare unless prosthetic valve present. Dr. New spoke to micro lab- as there are 2 types of CLINICAL INVESTIGATOR in 1 set with different susceptibilities, I requested that susceptibility testing be performed on the CLINICAL INVESTIGATOR in the other set- One is oxacillin sensi, the other is oxacillin R. 2/20 repeat Bcxs are NGTD. Pt is not able to provide history, Antibiotics changed from vancomycin to daptomycin 700 mg (~10 mg/kg based on adjusted body weight) IV daily for ease of administration long-term and vanco SOL. Pt not on statin. Leukocytosis has improved since Friday, I wonder if Flagyl is covering anaerobic process in lungs rather than severe Cdiff. We typically reserve flagyl for severe Cdiff disease. Difficult to tell. I would continue through tomorrow and DC. Pseudomona in urine appears to be asymptomatic bacteruria. (2) Upper GI bleed: (3) Colitis: Plan Continue with IV daptomycin anticipate treatment for 6 weeks from negative blood culture, through 07/01/22 Plan to treat for Cdiff colitis with Vancomycin 500m Po q6 hours x 14 days through 06/07/22, On 06/08 change Vancomycin to 125mg po BID for prophylaxis through (this is 7 days after completion of IV antibiotics) When ready fro discharge will need weekly CBC with differential, CPK, CMP should be monitored by physician at rehabilitation/[facility], Ideally an ID follow up would be needed given her manager long term care antibiotics. CPK 22 baseline recommend Repeating 2DEcho at end of therapy to evaluate for valvular dysfunction I would also recommend Flagyl through end of today I would not treat Pseudomonas in Urine at this time given HD stability and normalized WBC. I spoke with Dr. Lopez regarding my recommendations. ID will s/o at this time. Mel Rodriguez MD Infectious Diseases [facility] Admission and Anticipated Discharge Date Admission Date: May 18, 2022 Subjective Subsequent visit was provided via telemedicine using two-way real-time interactive telecommunication between the patient and the telemedicine provider. For the duration of the visit, the provider was performing the assessment from a different facility than the patient. This includesuse of bluetooth stethoscope forauscultationperformed by the telepresenter that the telem edicine provider can hear if described in the physical exam. [employer] Developer contact information: Please call [facility] Call Center . (Phone Number For Physician Use Only) After establishing a telemedicine visit, patient was: Patient was verified with two unique identifiers, Patient/authorized rep acknowledged consent and understanding and Gave permission to continue telehealth session Time Spent with Patient: Subsequent => 25 min TOI WBC improved Results & Data ([facility]) Vital Signs (Past 12 Hours) Vital Signs Temp Pulse Pulse Resp BP Pulse Ox O2 Del Method 06/04/22 08:19 36.8 C 86 18 102/60 99 Room Air 06/04/22 08:00 89 06/03/22 22:00 96 H 06/04/22 03:00 36.9 C 84 12 99/64 L 99 Room Air 06/03/22 22:00 Room Air 06/03/22 23:37 37.1 C 82 14 96/54 L 98 Room Air 06/03/22 21:59 102/58 L Laboratory Results Laboratory Results - last 48 hr 06/02/22 06/02/22 06/03/22 16:33 22:14 06:11 WBC 12.10 H RBC 3.37 L Hgb 9.3 L Hct 28.6 L MCV 84.9 MCH 27.6 MCHC 32.5 RDW Std Deviation 56.4 H RDW Coeff of Nelson 19.7 H Plt Count 313 MPV 9.4 Sodium Potassium Chloride Carbon Dioxide Anion Gap BUN Creatinine Est Cr Clr Drug Dosing Est GFR ( Amer) Est GFR (Non-Af Amer) BUN/Creatinine Ratio Glucose POC Glucose 130 H 156 H Calcium Phosphorus Magnesium 06/03/22 06/03/22 06/03/22 06:11 08:06 11:51 WBC RBC Hgb Hct MCV MCH MCHC RDW Std Deviation RDW Coeff of Nelson Plt Count MPV Sodium 136 Potassium 3.3 L Chloride 105 Carbon Dioxide 26 Anion Gap 5 BUN 23 Creatinine 0.80 Est Cr Clr Drug Dosing 75.1 Est GFR ( Amer) 87.8 Est GFR (Non-Af Amer) 75.8 BUN/Creatinine Ratio 28.8 H Glucose 98 POC Glucose 109 H 146 H Calcium 7.9 L Phosphorus 2.8 Magnesium 1.6 L 06/03/22 06/03/22 06/03/22 17:04 17:04 20:26 WBC RBC Hgb Hct MCV MCH MCHC RDW Std Deviation RDW Coeff of Nelson Plt Count MPV Sodium Potassium Chloride Carbon Dioxide Anion Gap BUN Creatinine Est Cr Clr Drug Dosing Est GFR ( Amer) Est GFR (Non-Af Amer) BUN/Creatinine Ratio Glucose POC Glucose 186 H 186 H 147 H Calcium Phosphorus Magnesium 06/04/22 06/04/22 06/04/22 06:06 06:06 08:13 WBC 10.76 RBC 3.33 L Hgb 9.4 L Hct 27.9 L MCV 83.8 MCH 28.2 MCHC 33.7 RDW Std Deviation 53.9 H RDW Coeff of Nelson 19.4 H Plt Count 290 MPV 9.7 Sodium 136 Potassium 3.3 L Chloride 106 Carbon Dioxide 25 Anion Gap 5 BUN 21 Creatinine 0.80 Est Cr Clr Drug Dosing 75.6 Est GFR ( Amer) 87.8 Est GFR (Non-Af Amer) 75.8 BUN/Creatinine Ratio 26.3 H Glucose 101 H POC Glucose 117 H Calcium 8.0 L Phosphorus 2.4 L Magnesium 1.7 06/04/22 11:59 WBC RBC Hgb Hct MCV MCH MCHC RDW Std Deviation RDW Coeff of Nelson Plt Count MPV Sodium Potassium Chloride Carbon Dioxide Anion Gap BUN Creatinine Est Cr Clr Drug Dosing Est GFR ( Amer) Est GFR (Non-Af Amer) BUN/Creatinine Ratio Glucose POC Glucose 180 H Calcium Phosphorus Magnesium Microbiology 06/01/22 14:38 Urine,Indwelling Cath Urine Culture - Final Pseudomonas aeruginosa 05/18/22 17:22 Blood Aerobic Blood Culture - Final Coag neg staph not lugdunensis 05/18/22 17:22 Blood Anaerobic Blood Culture - Final 05/20/22 03:55 Blood Aerobic Blood Culture - Final No growth in Aerobic bottle after 5 days. 05/20/22 03:55 Blood Anaerobic Blood Culture - Final No growth in Anaerobic bottle after 5 days. 05/20/22 03:55 Blood Aerobic Blood Culture - Final No growth in Aerobic bottle after 5 days. 05/20/22 03:55 Blood Anaerobic Blood Culture - Final No growth in Anaerobic bottle after 5 days. 05/18/22 16:53 Blood Aerobic Blood Culture - Final Coag neg staph not lugdunensis 05/18/22 16:53 Blood Anaerobic Blood Culture - Final Coag neg staph not lugdunensis Coag neg staph not lugdunensis#2 Coag neg staph not lugdunensis#3 Medications Administered Current Inpatient Medications Amiodarone HCl (Amiodarone 200 Mg Tab) 200 mg PO BID TIERA Stop: 07/04/22 20:59 Apixaban (Apixaban 5 Mg Tablet) 5 mg PO BID TIERA Stop: 06/25/22 20:59 Last Admin: 06/04/22 08:49 Dose: 5 mg Dextrose (Dextrose 50% 50 Ml Syringe) 25 - 50 ml IV UD PRN; Protocol PRN Reason: Hypoglycemia Protocol Stop: 06/17/22 23:35 Furosemide (Furosemide 40 Mg Tab) 40 mg PO DAILY TIERA Stop: 06/25/22 08:59 Last Admin: 06/04/22 10:48 Dose: 40 mg Glucagon (Glucagon For Inj 1 Mg Vial) 1 mg SQ UD PRN; Protocol PRN Reason: Hypoglycemia Protocol Stop: 06/17/22 23:35 Glucose (Glucose 10 Tab/Tube) 4 - 8 tab PO UD PRN; Protocol PRN Reason: Hypoglycemia Treatment Stop: 06/17/22 23:35 Glucose (Glucose 40% Gel 15 Gm Tube) 15 - 30 gm PO UD PRN; Protocol PRN Reason: Hypoglycemia Protocol Stop: 06/17/22 23:35 Guaifenesin (Guaifenesin 600 Mg Tabcr) 600 mg PO Q12 TIERA Stop: 07/01/22 08:59 Last Admin: 06/04/22 08:49 Dose: 600 mg Daptomycin 700 mg/ Syringe 14 mls @ 7 mls/min IV Q24H [facility]; Protocol Stop: 07/05/22 11:59 Last Admin: 06/04/22 12:02 Dose: 7 mls/min Metronidazole (Flagyl) 500 mg in 100 mls @ 100 mls/hr IV Q8H [facility] Stop: 06/10/22 08:29 Last Infusion: 06/04/22 09:59 Dose: Infused Insulin Aspart (Insulin Aspart Per Unit) 0 units SC ACHS TIERA Stop: 06/18/22 22:59 Last Admin: 06/04/22 12:00 Dose: Not Given Insulin Glargine (Lantus Per Unit Charge) 5 units SQ HS [facility] Stop: 07/01/22 20:59 Last Admin: 06/03/22 23:21 Dose: 5 units Magnesium Oxide (Magnesium Oxide 400 Mg Tab) 400 mg PO BID [facility] Stop: 06/26/22 08:59 Last Admin: 05/30/22 20:31 Dose: 400 mg Metoprolol Succinate (Metoprolol Succ 25mg Ext Rel Tab) 12.5 mg PO BID [facility] Stop: 06/27/22 20:59 Last Admin: 06/04/22 08:49 Dose: 12.5 mg Midodrine (Midodrine Hcl 2.5 Mg Tab) 5 mg PO DAILY@0700 TIERA Stop: 06/26/22 02:24 Last Admin: 06/04/22 06:32 Dose: 5 mg Mirtazapine (Mirtazapine Tab 15 Mg Tab) 7.5 mg PO HS TIERA Stop: 06/26/22 20:59 Last Admin: 06/03/22 21:37 Dose: 7.5 mg Miscellaneous (Carbohydrates For Hypoglycemia ) 15 - 30 gm PO UD PRN PRN Reason: Hypoglycemia Protocol Stop: 06/17/22 23:35 Miscellaneous Information (Pharmacist Discharge Med Rec Consult) 1 each N/A UD PRN PRN Reason: Consult Stop: 06/22/22 12:44 Multivitamins (Multivitamin Tab) 1 tab PO QAM TIERA Stop: 06/27/22 08:59 Last Admin: 06/04/22 08:51 Dose: 1 tab Pantoprazole Sodium (Pantoprazole 40 Mg Tab) 40 mg PO BID TIERA Stop: 06/24/22 20:59 Last Admin: 06/04/22 08:49 Dose: 40 mg Potassium Chloride (Potassium Chloride Pwd 20 Meq Pack) 20 meq PO BID TIERA Stop: 06/26/22 08:59 Last Admin: 06/04/22 08:50 Dose: 20 meq Raspberry (Raspberry Syrup 5 Ml Udp) 5 ml PO Q6 TIERA Stop: 06/04/22 23:59 Last Admin: 06/04/22 12:02 Dose: 5 ml Vancomycin HCl (Vancomycin Hcl 500 Mg/10 Ml Soln) 500 mg PO Q6 TIERA Stop: 06/04/22 23:59 Last Admin: 06/04/22 12:02 Dose: 500 mg
--- NOTE | 2022-06-04 10:06 | Discharge Summary ---
Date of Service June 04, 2022 Admission HPI Per Admitting Provider Pt is a 66 y/o F with hx of CVA with R hemiplegia, Afib on Eliquis, chronic urinary catheter 2/2 neurogenic bladder, DMII, HTN, HLD, anxiety brought in from [facility] with AMS, hypotension and possible GI bleed. Pt was found to be hypotensive in the ER therefore started on Levophed. At bedside: pt is minimally responsive to verbal stimuli therefore unable to get any history. Admission Exam Per Admitting Provider Obese pt, lethargic, NC in place (2L) HEENT: dry dark colour substance on the tongue and lip Lungs: fair air entry b/l with lower lobe rales Cardiac: Normal S1/S2, no murmur Abd: obese abd, pt appeared to be in distress on palpation diffusely --- normal BS MSK: Trace b/l LE pitting edema Psych: minimally responsive to verbal stimuli. Pt is lethargic Principal Diagnosis (1) Septic shock: C. difficile colitis Norovirus Ac Gastroenteritis Gram-positive bacteremia: Septic shock likely secondary to above Likely metabolic encephalopathy: Concern of endocarditis: CVA (2) GI bleed: (3) Respiratory failure with hypoxia: (4) MARIA ELENA (acute kidney injury): (5) Hyponatremia: (6) DM2 (diabetes mellitus, type 2): (7) HLD (hyperlipidemia): (8) HTN (hypertension): (9) H/O: CVA (cerebrovascular accident): (10) Neurogenic bladder: (11) Paroxysmal atrial fibrillation: (12) Depression with anxiety: Discharge Exam General: Awake , alert, oriented x 3, answers appropriately, speech clear. c hronically ill appearing obese F, on RA HEENT: NC/AT. + thick neck, central line now removed, site dry, clean Heart: RRR, no murmur Lower extremity: No erythema, 1+ pitting pedal edema (improved) Respiratory: on RA, clear to auscultation w/ some crackles Abdomen: soft, obese, + bowel sounds, nontender : Urinary catheter with yellow/melanie urine noted Neuro/psych: awake and alert, follows commands, speech fluent Sacral stage II ulcer. Discharge Data Allergies Allergy/AdvReac Type Severity Reaction Status Date / Time adhesive tape Allergy Unknown Unknown Verified 05/18/22 18:23 aspirin Allergy Unknown Unknown Verified 05/18/22 18:23 atorvastatin Allergy Unknown Unknown Verified 05/18/22 18:23 citalopram [From Celexa] Allergy Unknown Unknown Verified 05/18/22 18:23 Iodinated Contrast Media Allergy Unknown Unknown Verified 05/18/22 18:23 iodine Allergy Unknown Unknown Verified 05/18/22 18:23 latex Allergy Unknown Unknown Verified 05/18/22 18:23 sertraline [From Zoloft] Allergy Unknown Unknown Verified 05/18/22 18:23 Sulfa (Sulfonamide Allergy Unknown Unknown Verified 05/18/22 18:23 Antibiotics) ekg leads Allergy Unknown Unknown Uncoded 05/18/22 18:23 Consultations 05/18/22 18:43 ED Decision to Admit Stat 05/18/22 22:17 Consult Engineering Faculty Member Routine 05/21/22 09:45 Consult Cardiology Routine Consult Neurology Routine Consult Palliative Care Routine 05/22/22 10:30 Consult Gastroenterology Routine 05/23/22 09:46 Consult Infectious Diseases Routine Ordered Studies 05/18/22 17:11 CT abd pelvis wo con Stat CT chest diagnostic wo con Stat FINDINGS: CT CHEST: Cardiomegaly with mitral coronary arterial calcifications. No thoracic aortic aneurysm. Small moderate right pleural effusion. Unremarkable thyroid. No lymphadenopathy. Intralobular bronchial wall thickening with areas of mucous plugging. Mild dependent right basilar consolidation. Fluid-filled esophagus. Soft tissues and musculature. Degenerative changes of the shoulders and spine. CT ABDOMEN AND PELVIS: No pneumatosis or pneumoperitoneum. The unenhanced spleen, pancreas are within normal limits. Thickening of the genu glands suggestive of hyperplasia. Marginal nodularity. No adnexal masses identified. Distended gallbladder with possible sludge. There are 2 subcentimeter proteinaceous or hemorrhagic cyst of the superior pole left kidney. No hydronephrosis. Decompressed urinary bladder with Lovelace catheter. Atherosclerosis of the aorta. No lymphadenopathy. No bowel obstruction. Circumferential wall thickening is noted within the colon ascending from the mid transverse colon through the sigmoid and rectum with pericolonic and perirectal stranding and trace free fluid. Associated air-fluid levels appendix not visualized. No acute fracture. Degenerative changes of the spine, pelvis and hips. IMPRESSION: 1. Findings compatible with a nonspecific proctocolitis extending from the mid transverse colon distally. 2. Trace free pelvic fluid. 3. Small to moderate right pleural effusion with mild right basilar atelectasis. 4. Additional findings as above. 05/18/22 18:00 CT head/brain wo con Stat FINDINGS: No acute intracranial hemorrhage, midline shift, intracranial mass, hydrocephalus, territorial ischemia or abnormal extra-axial collection. Mild involutional changes with mild white matter hypodensities suggestive of chronic microvascular ischemic disease. There are several small ill-defined hypodense foci noted within the left frontal lobe centrum semiovale measuring up to approximately 1.5 cm.. Mildly motion degraded exam. The calvarium is intact. Prior bilateral lens repair. The paranasal sinuses, mastoid air cells, and middle ear cavities are clear. IMPRESSION: 1. No acute intracranial hemorrhage, midline shift or acute territorial infarct. 2. Suggestion of mild chronic microvascular ischemic disease. 3. Small ill-defined hypodense foci within the left frontal lobe centrum semiovale likely represent age-indeterminate lacunar infarcts. 05/18/22 19:34 CT angio abdomen pelvis w con Stat CTA: Moderate atherosclerosis of the abdominal aorta and branch vessels. Patent celiac trunk. Superior mesenteric arteries widely patent. Diminutive inferior mesenteric artery is patent. There is no evidence of active extravasation. Iliac arteries are diminutive and patent. CT ABDOMEN/PELVIS: Cardiomegaly. Endotracheal tube is noted terminating above the level the varun. Right IJ central venous catheter. Right basilar atelectasis with small to moderate right pleural effusion unchanged right hemidiaphragmatic elevation. No pneumatosis or pneumoperitoneum. The spleen and pancreas are within normal limits. Thickening of the adrenal glands suggestive of hyperplasia again noted with hyperattenuation. Mild marginal nodularity of the liver again noted. No hepatic mass identified. Distended gallbladder with possible sludge. Focal area of ill-defined heterogeneity within the superior pole left kidney overall measures 2.4 cm on image 134. The previously described proteinaceous or hemorrhagic subcentimeter cyst. Punctate calcifications of the left kidney again noted. No hydronephrosis. Unremarkable appearance of the right kidney. Decompressed urinary bladder with Lovelace catheter. No lymphadenopathy. Distal tip of enteric tube terminates within the mid stomach which is mildly distended. No bowel obstruction. Circumferential wall thickening with mucosal hyperemia is again noted within the colon ascending from the mid transverse colon through the sigmoid and rectum with pericolonic and perirectal stranding and trace free fluid. Layering hyperdense material is again noted within the distal colon suggestive of dizziness. Associated air-fluid levels appendix not visualized. No acute fracture. Degenerative changes of the spine, pelvis and hips. IMPRESSION: 1. Atherosclerosis. No arterial occlusion or evidence of active extravasation identified. 2. Findings compatible with a nonspecific proctocolitis extending from the mid transverse colon distally. 3. Trace free pelvic fluid. 4. Small to moderate right pleural effusion with mild right basilar atelectasis. 5. Lines and tubes as above. 6. Hyperattenuation of the adrenal glands can be associated with hypovolemia. 05/21/22 07:35 MRI Brain [MR brain wo con] Stat FINDINGS: No acute intracranial hemorrhage, midline shift or mass effect is present. Note is made of multiple hyperintense foci on the diffusion-weighted sequence, largest of which are within the bilateral occipital lobes. These measure up to 1.5 centers. An additional smaller infarcts within left basal ganglia is present. Scattered punctate additional infarcts are present. The m ajority of these are hypointense on the ADC map. There are a few small old infarct as well. Calvarial signal is normal. Basal cisterns are patent. There are no extra axial collections. Flow-voids for the major intracranial vessels are present. IMPRESSION: 1. Multiple small scattered foci of restricted diffusion, as described above. These represent acute infarcts and favor an embolic etiology. 2. No acute hemorrhage. No mass effect. Hospital Course (1) Septic shock: (2) GI bleed: (3) Respiratory failure with hypoxia: (4) MARIA ELENA (acute kidney injury): (5) Hyponatremia: (6) DM2 (diabetes mellitus, type 2): (7) HLD (hyperlipidemia): (8) HTN (hypertension): (9) H/O: CVA (cerebrovascular accident): (10) Neurogenic bladder: (11) Paroxysmal atrial fibrillation: (12) Depression with anxiety: Plan Assessment & Plan (1) Septic shock: (2) GI bleed: (3) Respiratory failure with hypoxia: (4) MARIA ELENA (acute kidney injury): (5) Hyponatremia: (6) DM2 (diabetes mellitus, type 2): (7) HLD (hyperlipidemia): (8) HTN (hypertension): (9) H/O: CVA (cerebrovascular accident): (10) Neurogenic bladder: (11) Paroxysmal atrial fibrillation: (12) Depression with anxiety: Plan 66 yo F, resident [facility] with PMH of CVA with residual right-sided weakness, chronic indwelling Lovelace catheter for neurogenic bladder, morbid obesity, HTN, GI bleeds, DM2, chronic hyponatremia, PAF on Eliquis was brought to the ED 05/18 from [facility] for concerns of encephalopathy and reported bloody bowel movements. She was noted to be obtunded, mildly hypothermic and with dried blood in oral cavity at ED and hence was intubated. She reportedly had another bowel movement in the ED that was dark maroon without clots. She is being managed for the following: C. difficile colitis Norovirus Ac Gastroenteritis Gram-positive bacteremia:05/19 TT-echo neg for vegetation, GEORGETTE 05/20 - lesions on mitral leaflets, mass present in LA appendage - calcifications vs vegetations. repeat bl cx 05/20 - NG 5 days. Septic shock likely secondary to above Likely metabolic encephalopathy:resolved Concern of endocarditis:ID on board. CVA: allergic to aspirin, rosuvastatin on hold d/t being on Dapto, GLP-1 agonist vs SGLT 2 inhibitor (defer to PCP office once pt out of acute illness). 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 At this point would not try to start asa or plavix or statin (as LDL is below 70), given her potential allergies and likely not much benefit at this time. Primary care physician can re-evaluate and possibly start these meds as outpt. Patient presents with altered mentation and was intubated due to AMS/dried blood in oral cavity Due to persistent hypotension, started on pressors at admission. Lovelace catheter was changed in the ED. Admitting labs with WBC of 32.5 K, hemoglobin of 11.8, AG metabolic acidosis in ABG. Pro-Maxim and LA elevated. Respiratory BioFire panel was negative. Admitting CXR with mild pulmonary vascular congestion. Admitting CTAP and CT chest: Nonspecific proctocolitis extending from the mid transverse colon distally. Small to moderate right pleural effusion with mild right basilar atelectasis. Admitting CT head with no new acute findings. 05/21 MRI Brain: Multiple small acute infarcts (b/l occipital lobes/left basal ganglia/other areas), likely embolic etiology. No hge or mass effect. 05/21 EEG: No epileptiform discharges or electrographic seizures were seen. 05/22 GEORGETTE: Mass present in left atrial appendage. Multiple focal, nonmobile lesions present on both mitral leaflets s/o calcification vs vegetation. 05/18 blood culture: CONS not lugdunensis 05/20 Bl Cx: NG5D Currently on midodrine, vancomycin p.o. 05/25 Procal wnl. Taper midodrine as able. ID on board: Vanco iv changed to dapto 05/24 --- 6 weeks treatment (through 07/01/22); c/w vanc po for C diff colitis. Continue with PO vanco 500 q6 hrs until 06/08 then switch to PO vanco 125 mg BID until July 08. 05/24 cpk 22, labs weekly while on iv antibiotic, PICC line consent obtained and ordered. however not able to placed PICC,therefore US-guided line was placed (05/30/2022). 06/01 WBC trending up now. Flagyl IV restarted. D/w RN - pt may need lovelace cath changed- and obtain UA when done. If any concerns will d/w ID. 06/02 Lovelace was changed and UA is negative for bacteria or nitrites. WBC down to 17K 06/03 even though UA negative, urine culture is growing Pseudomonas. WBC down to 12,000. Discussed w/ ID - likely asymptomatic bacteriuria and no treatment recommended at this time. 06/04 Discussed w/ ID - Repeat Echo after daptomycin treatment. Blood work - CBC, CPK, CMP to be checked after discharge while pt on daptomycin. GI bleed:Had dark-colored stool in the ED, admitting hemoglobin of 11.8, on Protonix po bid,hemoglobin stable around 11.5, labs in AM.c/w eliquis.per RN, miky alonzo. MARIA ELENA:Admitting creatinine of 4.06, secondary to septic shock, resolved. Type II NSTEMI: Troponin elevated likely secondary to acute illness, EKG and echo done/reviewed. SVT: cardio on board,on amiodarone and metoprolol.DC sotalol per d/w cardiology Iatrogenicvolume overload: being diuresed, cardio on board, iv lasixdaily, c/w FR 1500 ml. Unfortunately diuresis has been difficult d/t borderline BP, and as discussed w/ cardiology, prognosis remains guarded. However extremity edema much improved now. Continue w/ PO lasix after discharge - continue potassium supplement ad check potassium level in about 3 days. Monitor magnesium level. Monitor closely fluid status/ weight. A-fib on Eliquis:c/w home eliquis, pt on amio and metoprolol per cardio Electrolyte abnormalities:Including hyponatremia, MARIA ELENA, metabolic acidosis. resolved. replete [id number], mag as needed. Sacral wound, stage II: not sure if POA, pt chronically on bed per [facility]. WOCN. Poor appetite/h/o anxiety and depression: Remeron started. DMII:History of, sliding scale. CVA,Neurogenic bladder and anxiety: -home meds as able. -urinary catheter changed in the ER and then again during this admission on 06/01/2022. DVT PPx: Eliquis Code Status:DNR/DNI Dispo: Plan to DC to [facility] Total Time Total Time Spent Total Time Spent (In Minutes): 60 Discharge Plan Discharge Items Patient Disposition: Transfer Long-Term Fac Reason For Visit: AMS Discharge Diagnosis: (1) Septic shock: C. difficile colitis Norovirus Ac Gastroenteritis Gram-positive bacteremia: Septic shock likely secondary to above Likely metabolic encephalopathy: Concern of endocarditis: CVA (2) GI bleed: (3) Respiratory failure with hypoxia: (4) MARIA ELENA (acute kidney injury): (5) Hyponatremia: (6) DM2 (diabetes mellitus, type 2): (7) HLD (hyperlipidemia): (8) HTN (hypertension): (9) H/O: CVA (cerebrovascular accident): (10) Neurogenic bladder: (11) Paroxysmal atrial fibrillation: (12) Depression with anxiety: Activity: Per Instructions section Non-emergency contact: Primary Care Provider and Food Processing Scientist Call non-emergency contact if: you have any medication questions and your symptoms worsen Follow-up/Referrals: [facility] [Primary Care Provider] - Diet: Carb Consistent or DM2 and Lactose Intolerant Fluids: 1500ml (6 cups) Diet Texture: Pureed (blended smooth) Addtl Attending Provider Instructions: Continue with IV daptomycin, likely through July 01, 2022. You will need weekly blood work, CBC, CPK, CMP to be checked by your primary care physician or infectious disease doctor. After you finish treatment for endocarditis, you should have an echocardiogram done. You should be on p.o. vancomycin through July 08, 2022. Continue for next 4 days with dose 500 mg PO every 6 hrs. You can change to 125 mg twice daily dose on June 08. Also recommend to continue with IV metronidazole 500 mg tid for next 2 days. Your heart medications were changed. Stop taking diltiazem, sotalol, and lisinopril. You were started on amiodarone, take 200 mg twice a day for 1 month, then transition to 200 mg a day. You were also started on small dose of metoprolol, 12.5 mg twice a day. You were also started on midodrine, to help with your blood pressure, if your blood pressure improves, this medication can be tapered off. Continue taking Eliquis. You don't have to take statin at this time, discuss this further with your primary care physician. Continue taking Lasix and monitor your weight and fluid status closely. Continue taking potassium supplement and have your potassium level rechecked in about 3 days. Oral magnesium supplement can make your diarrhea worse, if needed, for now try to supplement with IV magnesium. You were started on mirtazapine during this hospital admission, and you were not getting your other medications such as duloxetine, gabapentin and trazodone or tramadol. Discuss further with your primary care physician if any of these medications would be restarted. Pending Studies at Discharge: No Stand-Alone Forms: My [facility], Medications to Prevent Stroke Skilled Items Patient informed of condition?: Yes DNR: Yes Discharge Level of Care: Skilled Communicable Disease: Yes Discharge Prognosis: Stable Lines: US Guided Peripheral IV Urinary Catheter: Yes Medications and DC Order Prescriptions: New amiodarone 200 mg Tablet 200 mg PO BID 30 Days Qty: 60 0RF metoprolol succinate 25 mg Tablet Extended Release 24 Hr 12.5 mg PO BID 30 Days Qty: 30 0RF mirtazapine 15 mg Tablet 7.5 mg PO HS 30 Days Qty: 15 0RF potassium chloride 20 mEq packet 20 meq PO BID 14 Days Qty: 30 0RF pantoprazole 40 mg Tablet,Delayed Release (Dr/Ec) 40 mg PO BID 30 Days Qty: 60 0RF guaifenesin [Mucinex] 600 mg Tablet Extended Release 12hr 600 mg PO Q12 10 Days Qty: 20 0RF midodrine 2.5 mg Tablet 5 mg PO DAILY@0700 7 Days Qty: 7 0RF Continued cholecalciferol (vitamin D3) [Vitamin D3] 125 mcg (5,000 unit) Tablet 125 mcg PO DAILY furosemide 40 mg tablet 40 mg PO DAILY Januvia 100 mg tablet 100 mg PO DAILY Eliquis 5 mg tablet 5 mg PO BID acetaminophen 325 mg Tablet 650 mg PO Q6 MDD 3g PRN (Reason: temp>101) acetaminophen 325 mg Tablet 650 mg PO Q6 MDD 3 PRN (Reason: Pain) insulin glargine [Lantus Solostar U-100 Insulin] 100 unit/mL (3 mL) insulin pen 15 unit SUBCUT HS Qty: 15 0RF cyanocobalamin (vitamin B-12) [Vitamin B-12] 500 mcg Tablet 500 mcg PO Q OTHER DAY Boost Glucose Control 8 oz PO . AT BREAKFAST Discontinued gabapentin 100 mg capsule 200 mg PO DAILY pravastatin 40 mg tablet 40 mg PO DAILY sotalol 80 mg tablet 80 mg PO BID trazodone 150 mg tablet 75 mg PO HS Rx Instructions: 1/2 tablet dose lisinopril 10 mg tablet 10 mg PO DAILY diltiazem HCl 180 mg capsule,extended release 24hr 180 mg PO DAILY tramadol 50 mg Tablet 50 mg PO Q8H PRN (Reason: pain level 6-10) duloxetine [Cymbalta] 60 mg Capsule,Delayed Release(Dr/Ec) 60 mg PO DAILY Discharge Orders: Discharge Order (Routine); Ordered 06/04/22 Ordered By: Junaid Lopez Admission Data Admit Date/Time: 05/18/22 19:19 Attending Provider: Junaid Lopze Admit Provider: Janette Gusman Primary Care Provider: [facility] Other Providers: Janette Gusman ; Ben Del Cid ; Buster Douglas ; Manuel Monson ; Dhruv Corona ; Demarco Rosenthal ; Shabbir Sierra ; Khalif Edwards ; Tiffanie Mack ; Azalea Zaragoza ; Krystina Turner ; Joey Pollard ; Alejandro Sandoval ; Xu Sarmiento ; Azalea Delgadillo ; Nasim Barrios ; Azalea Amor ; Blaine Wyatt ; Owen Rasmussen ; Opal Rowe ; Nasim Urbina ; Buster Lakhani ; Diane Henson ; Brian Pal ; Chan Castellanos ; Missy Basilio ; Jackie Malagon ; Ninfa Cantrell ; Zoila Kidd ; Collins Judge ; Curt Timmons ; Ranjeet Cornelius ; Rodrigo Rae ; Rony Schwartz ; Sveta Monsivais ; Mavis Monahan ; Anisa Anderson ; Lyndsay Franco ; Thierry Heart ; Simone Clemens ; Silas Moon ; Krystina Erazo ; Dean Rodriguez Jr ; Marissa New ; Irineo Guzman Other Interventions: Discharge Summary Assessment (RN) Last Done: 06/04/22 12:27
[2022-06-04] MEDS ORDERED: MAGNESIUM SULFATE / D5W 1 GM/100 ML BAG IV ONE (10:21)
[2022-06-04] MEDS: FUROSEMIDE 40 MG TAB PO SCH (10:48)
[2022-06-04] MEDS: DAPTOmycin 700 MG in SYRINGE 0 ML IV SCH (12:02)
[2022-06-04] MEDS ORDERED: STROKE PATIENT DISCHARGE STA (12:14)
[2022-06-04 12:29] VITALS: PULSE 81
[2022-06-04] MEDS ORDERED: AMIODARONE 200 MG TAB PO SCH (21:00)
== END 2022-06-04 13:49 | DRG 871 ==
LOC: ED 16:38 → SUATTDRO 19:19 → 1E 19:19 → 4W 05-23 18:37